=== PATIENT | male | born 1945 | race Caucasian/White ===

== ENCOUNTER 2016-12-27 08:59 | Day surgery (SDC) | payer OTHER, MEDICARE ==
[2016-12-12 13:28] VITALS: BMI 32.0
--- NOTE | 2016-12-12 14:19 | PAT Medication Instructions ---
Service Date Dec 12, 2016. Current Home Medication List Acetaminophen (Tylenol), 650 MG PO Q4H PRN for MILD PAIN Amlodipine (Norvasc), 2.5 MG PO QAM Calcitriol (Rocaltrol Cap), 0.25 MCG PO QAM Citalopram Hydrobromide (Celexa), 20 MG PO QAM Docusate Sodium (Docusate Sodium), 100 MG PO BID PRN for Constipation Ergocalciferol (Vitamin D 08681 Unit), 1 TAB PO [id number] Everolimus (Afinitor), 10 MG PO QAM Fluticasone Prop/Salmeterol (Advair Diskus 250/50 60 Dose), 2 PUFFS INH DAILY PRN for PRN Furosemide (Lasix), 40 MG PO QAM Gabapentin (Neurontin), 400 MG PO BID Glucagon (Glucagon Emergency Kit), 1 MG SC UD PRN for HYPOGLYCEMIA PROTOCOL Insulin Aspart (Novolog), 0 SC ACHS Insulin Glargine (Lantus), 55 SC QAM Ipratropium-Albuterol (Combivent Respimat), 1 PUFFS INH QID PRN for PRN Meclizine Hcl (Meclizine Hcl), 1 TAB PO PRN Oxycodone Ir (Roxicodone Ir), 5 MG PO Q6H PRN for Pain Ranitidine Hcl (Zantac), 150 MG PO QPM Sevelamer Carbonate (Renvela), 1 TAB PO TID Simvastatin (Zocor), 20 MG PO QPM [Octreotide], 1 DOSE INJ [id number] Medication Instructions For Your Scheduled Surgery - Continue as directed: [Octreotide], 1 DOSE INJ [id number] Ergocalciferol (Vitamin D 88831 Unit), 1 TAB PO [id number] Glucagon (Glucagon Emergency Kit), 1 MG SC UD PRN for HYPOGLYCEMIA PROTOCOL - Hold the following medications the morning of surgery: Calcitriol (Rocaltrol Cap), 0.25 MCG PO QAM Insulin Aspart (Novolog), 0 SC ACHS Furosemide (Lasix), 40 MG PO QAM Sevelamer Carbonate (Renvela), 1 TAB PO TID Docusate Sodium (Docusate Sodium), 100 MG PO BID PRN for Constipation - Take the following medications the morning of surgery with a sip of water OTHERWISE NOTHING TO EAT OR DRINK AFTER MIDNIGHT: Everolimus (Afinitor), 10 MG PO QAM Amlodipine (Norvasc), 2.5 MG PO QAM Meclizine Hcl (Meclizine Hcl), 1 TAB PO PRN (if needed) Oxycodone Ir (Roxicodone Ir), 5 MG PO Q6H PRN for Pain (may take if needed up to 4 hours prior to surgery) Acetaminophen (Tylenol), 650 MG PO Q4H PRN for MILD PAIN (may take if needed up to 4 hours prior to surgery) Ipratropium-Albuterol (Combivent Respimat), 1 PUFFS INH QID PRN for PRN Gabapentin (Neurontin), 400 MG PO BID Fluticasone Prop/Salmeterol (Advair Diskus 250/50 60 Dose), 2 PUFFS INH DAILY PRN for PRN Citalopram Hydrobromide (Celexa), 20 MG PO QAM - For Insulin Dependent Diabetic patients: Test blood sugar A.M. of surgery. - If Blood Sugar is GREATER THAN 150, take half of your regular dose of: Insulin Glargine (Lantus) - If Blood Sugar is LESS THAN 150, do not take any: Insulin Glargine ( Lantus) - Take the following medications as scheduled the night before surgery: Ranitidine Hcl (Zantac), 150 MG PO QPM Simvastatin (Zocor), 20 MG PO QPM Meclizine Hcl (Meclizine Hcl), 1 TAB PO PRN (if needed) Insulin Aspart (Novolog), 0 SC ACHS Oxycodone Ir (Roxicodone Ir), 5 MG PO Q6H PRN for Pain Ipratropium-Albuterol (Combivent Respimat), 1 PUFFS INH QID PRN for PRN Acetaminophen (Tylenol), 650 MG PO Q4H PRN for MILD PAIN Gabapentin (Neurontin), 400 MG PO BID Fluticasone Prop/Salmeterol (Advair Diskus 250/50 60 Dose), 2 PUFFS INH DAILY PRN for PRN Sevelamer Carbonate (Renvela), 1 TAB PO TID Docusate Sodium (Docusate Sodium), 100 MG PO BID PRN for Constipation If you have any questions please call us at [phone] or [phone] or [phone]
[2016-12-12 14:42] LABS: BASO ABS # 0.08 K/uL (0-0.2); EOS % 5.4 %; IG% 0.4 %; LYMPH % 24.1 %; LYMPH ABS # 1.84 K/uL (1.2-3.4); MEAN CELL VOLUME 77.9 fL (80-100); MEAN CORPUSCULAR HEMOGLOBIN 25.9 pg (25-34); MEAN CORPUSCULAR HGB CONC 33.2 g/dl (32-36); MEAN PLATELET VOLUME 11.6 fL (7.4-10.4); NEUT % 58.1 %; PLATELET COUNT 209 K/uL (130-400); RED BLOOD COUNT 3.21 M/uL (4.7-6.1); WHITE BLOOD COUNT 7.65 K/uL (4.8-10.8)
[2016-12-12 14:59] LABS: PARTIAL THROMBOPLASTIN RATIO 1.1; PROTHROMBIN TIME (PATIENT) 11.2 SECONDS (9.0-12.0)
[2016-12-12 15:17] LABS: ANISOCYTOSIS PRESENT; COMPLETE YES
[2016-12-12 15:53] LABS: BUN/CREATININE RATIO 16.2 (10-20); CREATININE 3.3 mg/dl (0.60-1.40); POTASSIUM 5.2 mmol/L (3.5-5.1)
[~2016-12-27] VITALS: Ht 182.9 cm; Wt 107.6 kg
--- NOTE | 2016-12-27 06:16 | History and Physical ---
History & Physical Date of Service Dec 27, 2016. History & Physical CC: End stage renal disease HPI: Mr. Murillo states he is not yet on hemodialysis, but has been advised that his kidney function continues to decline and that he would likely benefit from having an AV fistula created in the hopes that this will prevent him having to have a PermCath inserted when he does need dialysis. He states he does not have a start date for any dialysis at this time. He denies any complaints including headaches, fevers, chills, dizziness, chest pain, shortness of breath, abdominal pain, nausea, vomiting, diarrhea, constipation, dysuria, hematuria, rest pain, claudication, nonhealing wounds or ulcers or other complaints. HIS ALLERGIES INCLUDES SULFA DRUGS. Home Medications are reconciled on the chart and include the following: Acetaminophen, Advair Diskus, Afinitor oral tablet, amlodipine, Antivert, calcitriol, Celexa, Colace, Combivent Respimat, gabapentin, glucagon, Humalog quick pen, Lantus SoloSTAR octreotide, sevelamer, simvastatin, vitamin D3 and Zantac. Past Medical History: Positive for cervical spinal stenosis, chronic kidney disease stage IV, depression, type 2 diabetes mellitus, hypertension, hyperlipidemia, hypoparathyroidism, lumbar spinal stenosis, neoplasm of liver, peripheral neuropathy and COPD. Past Surgical History: Positive for cystoscopy with stent, cervical laminectomy , lumbar laminectomy, right knee arthroscopic surgery, bilateral carpal tunnel release, bony spur excised from the neck, and lithotripsy. Family History: Positive for bronchitis, cancer, COPD, depression, diabetes mellitus and thyroid disease in unknown family members. Social History: The patient used to smoke cigarettes and quit at age [age] years old. He denies alcohol or drug use. Review of Systems: Negative for fatigue, fevers, sweats, weight loss, exercise intolerance, abnormal moles or rashes, vision changes or photophobia, ear pain, sinus problems or sore throat, cough, shortness of breath, hemoptysis or wheezing any worse than usual, abdominal pain, nausea, vomiting, hematuria, muscle weakness, headaches, dizziness, numbness or seizures. Physical Examination: Vital signs today are as follows: Blood pressure 138/66 in the right arm, 138/68 in the left, heart rate of 82, oxygen 97% on room air. The patient is 183 cm tall and weighs 105.5 kilograms. Constitutional: In general, patient is a mildly chronically ill-appearing middle-aged male in no acute distress. He ambulates without assistance and is active, alert and oriented x4 with normal recent and remote memory. Head is normocephalic, atraumatic. Eyes are EOMI. ENMT exam demonstrates no hearing loss, rhinorrhea or pharyngeal erythema. Neck is supple, nontender with midline trachea without masses or crepitus. He does have a posterior neck surgical scar and has minimal range of motion. His lungs demonstrate no dyspnea. They are decreased throughout, but clear bilaterally. Cardiovascular exam demonstrates a nondisplaced apical impulse with a regular rate and rhythm without murmurs. Peripheral pulses are full and equal in all extremities unless otherwise noted, specifically they are normal in his carotid, brachial, radial, and femoral pulses. Lower extremities distal pulses are +1. He has brisk capillary refill and no signs of distal ischemia. The patient demonstrates no bruits in his carotid, abdominal or femoral area. Abdomen is soft, nontender with normoactive bowel sounds in all 4 quadrants without guarding or rebound. There is no flank or CVA tenderness. Musculoskeletal exam demonstrates normal tone and strength for age. Bilateral upper extremities demonstrate no cyanosis, edema, clubbing, varicosities or ulcers. Bilateral lower extremities demonstrate no cyanosis, edema, clubbing, varicosities or ulcers. Neurologically, patient has grossly intact cranial nerves and grossly intact sensation. Imp: End stage renal disease Plan: Patient is admitted ofr a left antecubital cephalic vein fistula creation. I have discussed the risks options and benefits of the procedure with the patient. The patient understands the risks options and benefits and agrees to the procedure.
[~2016-12-27 08:59] MED LIST: ACET-1311 PO; ADVIN25/60 INH; AMLO2.5T PO; CALC0.2510 PO; CEFAZOLIN 2000 MG/60 ML D5W IV SCH; CITA20TA9 PO; CLC100 PO; ERGO1CAP41 PO; EVER10TA PO; FRS/40 PO; GABA1CAP5 PO; GLGKIT SC; INSDGI SC; IPRA1AER2 INH; MECL1TAB42 PO; NVLGI SC; OCTREOTIDE INJ; OXYC1TAB3 PO; SEVE800T7 PO; SIMV20TA2 PO; SODIUM CHLORIDE 0.9% 1000ML 1,000 ML IV SCH; ZNT/150 PO
[2016-12-27 09:14] VITALS: TEMP 36.9; Ht 182.9 cm; Wt 107.6 kg
[2016-12-27 09:26] VITALS: BP 177/79; O2SAT 96
[2016-12-27 10:31] LABS: HEMATOCRIT 24.5 % (42-52); MEAN CELL VOLUME 79.3 fL (80-100); MEAN CORPUSCULAR HEMOGLOBIN 25.9 pg (25-34); MEAN PLATELET VOLUME 12.1 fL (7.4-10.4); PLATELET COUNT 171 K/uL (130-400); RED BLOOD COUNT 3.09 M/uL (4.7-6.1); WHITE BLOOD COUNT 5.64 K/uL (4.8-10.8)
[2016-12-27] MEDS ORDERED: LIDOCAINE HCL 2% 2 ML VIAL (20MG/ML) ONE (10:51)
[2016-12-27] MEDS ORDERED: PROPOFOL IV EMULSION 10 MG/ML 20 ML VIAL IV ONE ×3 (10:51→13:08)
[2016-12-27] MEDS ORDERED: FENTANYL CITRATE INJ 50 MCG/1 ML 2 ML VIAL ONE (10:51)
[2016-12-27] MEDS ORDERED: MIDAZOLAM HCL 1 MG/ML 2ML VIAL ONE (10:51)
[2016-12-27 10:53] LABS: CALCIUM 8.6 mg/dl (8.5-10.1); CREATININE 3.2 mg/dl (0.60-1.40); POTASSIUM 4.4 mmol/L (3.5-5.1)
[2016-12-27 10:59] LABS: MEAN CORPUSCULAR HGB CONC 32.7 g/dl (32-36)
--- NOTE | 2016-12-27 11:11 | History & Physical Bridge Note ---
H&P Re-Evaluation Bridge Note: I have examined the patient, reviewed the History & Physical and in the interval since the performance of the History & Physical I have noted the following changes of clinical significance: No changes noted
[2016-12-27] MEDS ORDERED: FENTANYL CITRATE INJ 50 MCG/1 ML 2 ML VIAL IV PRN (11:15)
[2016-12-27] MEDS ORDERED: ONDANSETRON INJ 2 MG/ML 2 ML VIAL IV PRN (11:15)
[2016-12-27] MEDS ORDERED: EpHEDrine SULFATE INJ 50 MG/ML AMP IV PRN (11:15)
[2016-12-27] MEDS ORDERED: ATROPINE SULFATE 0.1 MG/ML 5ML SYR IV PRN (11:15)
[2016-12-27] MEDS ORDERED: GELATIN SPONGE 12-7MM ONE (11:49)
[2016-12-27] MEDS ORDERED: LIDOCAINE HCL 1% 20 ML VIAL ONE (11:49)
[2016-12-27] MEDS ORDERED: BUPIVACAINE/EPINEPHRINE 0.5% MPF 1:200,000 30 ML VIAL ONE (11:49)
[2016-12-27] MEDS ORDERED: THROMBIN FOR SOLN 20000 UNIT KIT ONE (11:49)
[2016-12-27] MEDS ORDERED: HEPARIN SOD (PORCINE) 1000 UNIT/ML 10 ML VIAL ONE (11:50)
--- NOTE | 2016-12-27 13:24 | [facility] Post Operative Brief Note ---
Immediate Operative Summary Operative Date Dec 27, 2016. Pre-Operative Diagnosis End stage renal disease Post-Operative Diagnosis End stage renal disease Procedure(s) Performed Left Upper Extremity Antecubital Cephalic Vein Arteriovenous Fistula Creation Surgeon Dr. Fagan [employer] Assistant Surgeon(s) Dr. Marques Estimated Blood Loss 10 ml Findings good thrill Specimens None per surgeon Anesthesia MAC Complication(s) None Disposition Recovery Room / PACU
--- NOTE | 2016-12-27 13:29 | Discharge Instructions ---
Discharge Instructions Date of Service Dec 27, 2016. Visit Reason for Visit: End Stage Renal Disease Discharge Discharge Diagnosis / Problem: End stage renal disease Discharge Goals Goal(s): Therapeutic intervention Activity Recommendations Activity Limitations: per Instructions/Follow-up section Anesthesia . Post Anesthesia Instructions: If you have had General Anesthesia or IV Sedation: * Do not drive today. * Resume driving when surgeon permits. * Do not make important decisions or sign legal documents today. * Call surgeon for: 1. Temperature elevations greater than 101 degrees F. 2. Uncontrollable pain. 3. Excessive bleeding. 4. Persistent nausea and vomiting. 5. Medication intolerance (nausea, vomiting or rash). * For nausea and vomiting use only clear liquids such as: tea, soda, bouillon until nausea subsides, then gradually increase diet as tolerated. * If you have any concerns or questions, call your surgeon's office. If physician is unavailable and it is an emergency, call 911 or go to the nearest emergency room. . Instructions / Follow-Up Instructions / Follow-Up Call [phone] to schedule a follow up appointment if one not already scheduled. ACTIVITY RECOMMENDATIONS: See Above SPECIAL CARE INSTRUCTIONS: Call your doctor if: * Temperature above 101 degrees * Pain not relieved by pain medicine ordered * There is increased drainage or redness from any incision * You have any unanswered questions or concerns. Diet Recommendations Recommended Home Diet: resume previous diet Procedures Procedures Performed: Left Upper Extremity Antecubital Cephalic Vein Arteriovenous Fistula Creation Pending Studies Studies pending at discharge: no Medical Emergencies . Who to Call and When: Medical Emergencies: If at any time you feel your situation is an emergency, please call 911 immediately. . Non-Emergent Contact Non-Emergency issues call your: Surgeon . . "Provider Documentation" section prepared by Adelso Fagan. .
--- NOTE | 2016-12-27 13:34 | Anesthesiology Progress Note ---
Anesthesia Post Op Note Date & Time Dec 27, 2016 at 13:34 Vital Signs Pain Intensity: 3 Vital Signs Past 12 Hours Date Time Temp Pulse Resp B/P (MAP) Pulse Ox O2 Delivery O2 Flow Rate FiO2 12/27/16 09:26 18 177/79 (111) 96 Room Air 12/27/16 09:14 36.9 Notes Mental Status: alert / awake / arousable, participated in evaluation Pt Amnestic to Procedure: Yes Nausea / Vomiting: adequately controlled Pain: adequately controlled Airway Patency, RR, SpO2: stable & adequate BP & HR: stable & adequate Hydration State: stable & adequate Anesthetic Complications: no major complications apparent
[2016-12-27 13:50] VITALS: BP 146/70; PULSE 83; TEMP 36.6; O2SAT 95
[2016-12-27] MEDS ORDERED: OXYCODONE HCL IR 5 MG TAB (IMMEDIATE RELEASE) ONE (14:24)
[2016-12-27] MEDS ORDERED: OXYCODONE HCL IR 5 MG TAB (IMMEDIATE RELEASE) PO STA (14:24)
[2016-12-27 14:25] VITALS: BP 144/67; PULSE 80; O2SAT 95
[2016-12-27] MEDS ORDERED: NURSING VERBAL MED ORDER ONE (14:30)
[2016-12-27 14:50] VITALS: BP 166/75; PULSE 86; TEMP 37.5; O2SAT 96
--- NOTE | 2016-12-27 15:07 | OPERATIVE REPORT ---
DATE OF OPERATION: 12/27/2016 PREOPERATIVE DIAGNOSIS: End-stage renal disease. POSTOPERATIVE DIAGNOSIS: Same. PROCEDURE: Left antecubital brachiocephalic fistula. SURGEON: Dr. Adelso Fagan. DIETETIC AIDE: Dr. Leah Marques. DESCRIPTION OF PROCEDURE: The patient was brought into the operative suite. He was prepped and draped in the usual fashion. Timeout occurred. An incision was made about 2 cm below the antecubital fossa transversely. The cephalic vein was identified. This was dissected out. The brachial vein was then identified and dissected out. The median cubital vein was ligated as well as the posterior branch of the cephalic vein. The vein was then ligated and transected distally. The vein was distended with heparinzed saline and to be of adequate size. Attention was then turned to the artery. Angled Debakey clamps were applied proximally and distally. Arteriotomy was made and this was extended with Hare scissors to be approximately 5 mm. The vein was then trimmed to size and sewn in end-to-side fashion. Upon completion of the first anastomosis, there was a quarter turn in in the vein causing a diminished thrill. The anastomosis was taken down and resewn in end to side fashion position and adequate thrill. Hemostasis was obtained and the incision was closed using 3-0 and 4-[address] Adelso Fagan was present and scrubbed for the entirety of this case. I, Dr. Fagan was present and scrubbed for the entire procedure. I attest to the content of the Intraoperative Record and any orders documented therein. Any exceptions are noted below. [facility]
[2017-01-08] MEDS ORDERED: ASPEC81 PO (17:44)
[2017-01-08] MEDS ORDERED: DMD20 PO (17:44)
== END 2016-12-27 15:05 | disposition home or self-care (01) ==
LOC: C.ACU 08:59
PROVIDERS: ATTEND Surgery Vascular Surgery
DX: N18.6 End stage renal disease (principal); M48.02 Spinal stenosis, cervical region; F32.9 Major depressive disorder, single episode, unspecified; E11.22 Type 2 diabetes mellitus with diabetic chronic kidney disease; I12.9 Hypertensive chronic kidney disease with stage 1 through stage 4 chronic kidney disease, or unspecified chronic kidney disease; E78.5 Hyperlipidemia, unspecified; E20.9 Hypoparathyroidism, unspecified; M48.06 Spinal stenosis, lumbar region; E11.51 Type 2 diabetes mellitus with diabetic peripheral angiopathy without gangrene; J44.9 Chronic obstructive pulmonary disease, unspecified; Z87.891 Personal history of nicotine dependence

== ENCOUNTER 2017-01-05 17:52 | Inpatient (IN) | payer OTHER, MEDICARE ==
[~2017-01-05] VITALS: Ht 182.9 cm; Wt 105.8 kg
[~2017-01-05 17:52] MED LIST changes: -CEFAZOLIN 2000 MG/60 ML D5W IV SCH; -MECL1TAB42 PO; -SODIUM CHLORIDE 0.9% 1000ML 1,000 ML IV SCH
[2017-01-05] MEDS ORDERED: ALBU18002 INH (18:50)
[2017-01-05] MEDS ORDERED: CITA40TA4 PO (18:53)
[2017-01-05] MEDS ORDERED: INSDGIPEN SC (18:58)
[2017-01-05] MEDS ORDERED: MECL-91 PO (19:04)
[2017-01-05] MEDS ORDERED: INSU100I2 SC (19:07)
[2017-01-05 19:28] LABS: BASO % 1.2 %; BASO ABS # 0.07 K/uL (0-0.2); EOS % 3.7 %; HEMATOCRIT 24.5 % (42-52); IG% 0.3 %; LYMPH % 27.1 %; LYMPH ABS # 1.63 K/uL (1.2-3.4); MEAN CELL VOLUME 79.5 fL (80-100); MEAN CORPUSCULAR HGB CONC 32.7 g/dl (32-36); MEAN PLATELET VOLUME 11.6 fL (7.4-10.4); MONO % 9.1 %; NEUT % 58.6 %; PLATELET COUNT 168 K/uL (130-400); RED BLOOD COUNT 3.08 M/uL (4.7-6.1); WHITE BLOOD COUNT 6.02 K/uL (4.8-10.8)
[2017-01-05 19:38] LABS: PARTIAL THROMBOPLASTIN RATIO 1.1
[2017-01-05 19:51] LABS: COMPLETE YES; TEAR DROP CELLS 1+
--- NOTE | 2017-01-05 19:52 | DIAGNOSTIC IMAGING REPORT ---
CHEST ONE VIEW PORTABLE CLINICAL HISTORY: 71 years-old Male presenting with EVALUATE RESPIRATORY DISTRESS.DYSPNEA. TECHNIQUE: Portable upright AP view of the chest was obtained. COMPARISON: 05/01/2015. FINDINGS: Cardiac silhouette remains enlarged. Left basilar opacity decreased from prior. Small left pleural effusion. Right lung and pleural space clear. Partial visualization of cervical fusion hardware. Degenerative changes of the spine. Upper abdomen normal. IMPRESSION: 1. Persistent although decreased left basilar opacities with a small left pleural effusion. This may represent atelectasis. 2. Cardiomegaly. No meggan pulmonary edema. Electronically signed by: Cody Connor M.D. 01/05/2017 7:51 PM Dictated Date/Time: 01/05/2017 7:50 PM
[2017-01-05 19:56] LABS: ALB/GLOB RATIO 0.8 (0.9-2); ALKALINE PHOSPHATASE 116 U/L (45-117); ALT/SGPT 20 U/L (12-78); AST/SGOT 29 U/L (15-37); BLOOD UREA NITROGEN 52 mg/dl (7-18); BUN/CREATININE RATIO 15.3 (10-20); CALCIUM 8.2 mg/dl (8.5-10.1); CARBON DIOXIDE 23 mmol/L (21-32); CHLORIDE 109 mmol/L (98-107); CKMB/CK RATIO 1.1 (0-3.0); GLUCOSE 60 mg/dl (70-99); POTASSIUM 4.4 mmol/L (3.5-5.1); SODIUM 141 mmol/L (136-145)
[2017-01-05 20:15] LABS: URINE APPEARANCE CLOUDY (CLEAR); URINE COLOR DK YELLOW; URINE NITRITE NEG (NEG); UROBILINOGEN NEG (NEG)
[2017-01-05 20:16] LABS: MANUAL MICROSCOPIC REQUIRED? NO; REVIEW REQ? YES
[2017-01-05 20:18] LABS: URINE BILIRUBIN NEG (NEG)
[2017-01-05 20:27] LABS: URINE PATH CASTS 5-10 GRANULAR CASTS /lpf (0)
--- NOTE | 2017-01-05 20:56 | DIAGNOSTIC IMAGING REPORT ---
(CHEST) THORAX WITHOUT CLINICAL HISTORY: 71 years-old Male presenting with SOB, CRI. outpt xrayr questioned pneumo. TECHNIQUE: Multidetector CT imaging of the chest was performed without the use of intravenous contrast. IV contrast: None. A dose lowering technique was used consistent with the principles of ALARA (as low as reasonably achievable). COMPARISON: 04/05/2012. CT DOSE (mGy.cm): The estimated cumulative dose is 589.34 mGy.cm. FINDINGS: Vascular Radiologist topogram: Unremarkable. On soft tissue windows, bilateral gynecomastia. Few small nodules noted in the thyroid. No axillary, supraclavicular, or mediastinal lymphadenopathy. Evaluation of the radha limited without intravenous contrast. Atherosclerosis of the aorta. Mild multichamber enlargement of the heart. Intraventricular blood flow is less dense than adjacent myocardium suggesting anemia. Mitral annular and coronary artery calcification. Trace pericardial effusion. Small bilateral pleural effusions. Cholelithiasis. Ill-defined hypodense lesion in the right hepatic lobe (series 2 image 60), new from prior exam in 2012. Calcification along the atrophic lateral segment of the left hepatic lobe unchanged. Slight interval increased size of the solid round 3.5 cm lesion in the pancreatic tail, previously 2.5 cm. On lung windows, dependent consolidation and volume loss at the lung bases, likely passive atelectasis. Subpleural regular opacity with adjacent calcification at the site of prior consolidation, likely scarring. Focal nodularity in the superior segment of the right lower lobe (for example series 4 image 177). Minimal groundglass centrilobular opacities in the lingula suggested primarily in a subpleural distribution, likely postinfectious/postinflammatory as these changes were apparent to some degree on the prior exam. Airways patent. On bone windows, degenerative changes of the spine. Partially visualized posterior cervical fusion hardware. IMPRESSION: 1. Small bilateral pleural effusions with dependent atelectasis. 2. Minimal nodularity in the superior segment of the right lower lobe. An atypical infectious etiology cannot be excluded. 3. Chronic postinfectious/postinflammatory changes in the lingula. 4. Ill-defined hypodense lesion in the right hepatic lobe is suspicious and new from prior exam in 2012. This raises concern for a metastatic lesion. Further evaluation with dedicated contrast enhanced liver CT or MR recommended and correlation for a history of primary malignancy. 5. Interval increased size of the solid pancreatic neoplasm. This is incompletely characterized without intravenous contrast. Differential considerations include solid pseudopapillary epithelial neoplasm, serous cystadenoma, focal side branch intraductal papillary mucinous neoplasm, or acinar carcinoma. Further evaluation could be considered as clinically warranted. 6. 7. 8. Electronically signed by: Cody Connor M.D. 9. 01/05/2017 8:55 PM 10. 11. Dictated Date/Time: 01/05/2017 8:43 PM
[2017-01-05] MEDS ORDERED: FUROSEMIDE 40 MG/4 ML VIAL IV STA (21:35)
--- NOTE | 2017-01-05 22:39 | EMERGENCY ROOM VISIT NOTE ---
History Report prepared by Venita: Fabienne Shannon Under the Supervision of: Dr. Josué Tyler M.D. First contact with patient: 18:34 Chief Complaint: SHORTNESS OF BREATH Stated Complaint: SOB Nursing Triage Summary: patient referred to ER from PCP. patient went to PCP c/o SOB and cough x2 days. patient had a EKG, chest xray and a breathing treatment and sent home with inhaler. PCP called patient for "partial collapse to a lung" and was told to come to ER History of Present Illness The patient is a 71 year old male who presents to the Emergency Room with complaints of worsening shortness of breath for the past 2 days. Exertion worsens his symptoms. He admits to a history of asthma but states he has never experienced breathing issues this severe before. He saw his PCP's office at [facility] earlier today for his symptoms. He had an EKG, chest X-ray and breathing treatment and was sent home with an inhaler. His doctor then called him earlier this evening and left a message, telling him his X-ray showed a partial collapsed lung and referred him here to the ED. The patient does not take daily blood thinners. He admits to a history of liver and pancreatic cancer for the past 5 years. He currently takes maintenance chemotherapy. The patient denies LOC, headache, fevers, chills, diaphoresis, visual changes, neck pain, chest pain, nausea, vomiting, abdominal pain, back pain, melena, hematochezia, urinary symptoms, numbness, weakness, lymphadenopathy, rash, or other complaints. 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 A total of ten systems were reviewed and were otherwise negative. Past Medical & Surgical Medical Problems: (1) Anemia (2) Asthma (3) Diabetes (4) Encephalopathy (5) Hypertension (6) Left knee pain (7) Liver cancer (8) Pancreas cancer (9) Right rib fracture (10) Stenosis of cervical spine (11) Traumatic joint effusion Surgical Problems: (1) H/O cervical spine surgery Family History Cancer Diabetes mellitus Heart disease Hypertension Lung disease Social History Smoking Status: Former Smoker Alcohol Use: none Drug Use: none Marital Status: Housing Status: lives with significant other Occupation Status: retired Current/Historical Medications Scheduled Amlodipine (Norvasc), 2.5 MG PO QAM Calcitriol (Rocaltrol Cap), 0.25 MCG PO QAM Citalopram (Citalopram Hydrobromide), 40 MG PO DAILY Ergocalciferol (Vitamin D 37952 Unit), 1 TAB PO [id number] Everolimus (Afinitor), 10 MG PO QAM Furosemide (Lasix), 40 MG PO BID Gabapentin (Neurontin), 400 MG PO BID Insulin Glargine (Lantus Solostar), 55 UNITS SC QAM Insulin Lispro (Human) (Humalog Kwikpen), 1 DOSE SC UD Ranitidine Hcl (Zantac), 150 MG PO QPM Sevelamer Carbonate (Renvela), 800 MG PO TIDM Simvastatin (Zocor), 20 MG PO QPM [Octreotide], 1 DOSE INJ [id number] Scheduled PRN Acetaminophen (Tylenol), 650 MG PO Q4H PRN for MILD PAIN Albuterol Sulfate (Proair Respiclick), 2 PUFFS INH Q4 PRN for Wheezing Fluticasone Prop/Salmeterol (Advair Diskus 250/50 60 Dose), 1 PUFF INH DAILY PRN for PRN Glucagon (Glucagon Emergency Kit), 1 MG SC UD PRN for HYPOGLYCEMIA PROTOCOL Ipratropium-Albuterol (Combivent Respimat), 1 PUFFS INH QID PRN for PRN Meclizine HCl (Meclizine 25), 25 MG PO TID PRN for Dizziness or Vertigo Allergies Coded Allergies: Sulfa Antibiotics (Verified Allergy, Mild, RASH, 01/05/17) NSAIDs (Unverified Allergy, Unknown, "NO NSAIDS"due to kidney disease, 01/05/17) Physical Exam Vital Signs Date Time Temp Pulse Resp B/P (MAP) Pulse Ox O2 Delivery O2 Flow Rate FiO2 01/05/17 21:31 93 18 160/83 98 Room Air 01/05/17 20:48 88 20 156/77 98 Nasal Cannula 2.0 01/05/17 19:43 85 18 144/72 100 Nasal Cannula 2.0 01/05/17 19:16 88 01/05/17 19:09 99 2.0 01/05/17 19:09 99 Nasal Cannula 2.0 01/05/17 18:00 95 Room Air 01/05/17 18:00 36.8 87 24 130/63 96 Room Air Physical Exam GENERAL: Awake, alert, tired-appearing, in no distress HENT: Normocephalic, atraumatic. Oropharynx unremarkable. EYES: Normal conjunctiva. Sclera non-icteric. NECK: Supple. No nuchal rigidity. FROM. No JVD. RESPIRATORY: Clear to auscultation. CARDIAC: Regular rate, normal rhythm. Extremities warm and well perfused. Pulses equal. ABDOMEN: Soft, non-distended. No tenderness to palpation. No rebound or guarding. No masses. RECTAL: Deferred. MUSCULOSKELETAL: Chest examination reveals no tenderness. The back is symmetrical on inspection without obvious abnormality. There is no CVA tenderness to palpation. No joint edema. LOWER EXTREMITIES: Calves are equal size bilaterally and non-tender. 2+ lower extremity edema. No discoloration. NEURO: Normal sensorium. No sensory or motor deficits noted. SKIN: No rash or jaundice noted. Medical Decision & Procedures ER Provider Diagnostic Interpretation: Radiology results as stated below per my review and radiologist interpretation: (CHEST) THORAX WITHOUT CLINICAL HISTORY: 71 years-old Male presenting with SOB, CRI. outpt xrayr questioned pneumo. TECHNIQUE: Multidetector CT imaging of the chest was performed without the use of intravenous contrast. IV contrast: None. A dose lowering technique was used consistent with the principles of ALARA (as low as reasonably achievable). COMPARISON: 04/05/2012. CT DOSE (mGy.cm): The estimated cumulative dose is 589.34 mGy.cm. FINDINGS: Dye Line Operator topogram: Unremarkable. On soft tissue windows, bilateral gynecomastia. Few small nodules noted in the thyroid. No axillary, supraclavicular, or mediastinal lymphadenopathy. Evaluation of the radha limited without intravenous contrast. Atherosclerosis of the aorta. Mild multichamber enlargement of the heart. Intraventricular blood flow is less dense than adjacent myocardium suggesting anemia. Mitral annular and coronary artery calcification. Trace pericardial effusion. Small bilateral pleural effusions. Cholelithiasis. Ill-defined hypodense lesion in the right hepatic lobe (series 2 image 60), new from prior exam in 2012. Calcification along the atrophic lateral segment of the left hepatic lobe unchanged. Slight interval increased size of the solid round 3.5 cm lesion in the pancreatic tail, previously 2.5 cm. On lung windows, dependent consolidation and volume loss at the lung bases, likely passive atelectasis. Subpleural regular opacity with adjacent calcification at the site of prior consolidation, likely scarring. Focal nodularity in the superior segment of the right lower lobe (for example series 4 image 177). Minimal groundglass centrilobular opacities in the lingula suggested primarily in a subpleural distribution, likely postinfectious/postinflammatory as these changes were apparent to some degree on the prior exam. Airways patent. On bone windows, degenerative changes of the spine. Partially visualized posterior cervical fusion hardware. IMPRESSION: 1. Small bilateral pleural effusions with dependent atelectasis. 2. Minimal nodularity in the superior segment of the right lower lobe. An atypical infectious etiology cannot be excluded. 3. Chronic postinfectious/postinflammatory changes in the lingula. 4. Ill-defined hypodense lesion in the right hepatic lobe is suspicious and new from prior exam in 2012. This raises concern for a metastatic lesion. Further evaluation with dedicated contrast enhanced liver CT or MR recommended and correlation for a history of primary malignancy. 5. Interval increased size of the solid pancreatic neoplasm. This is incompletely characterized without intravenous contrast. Differential considerations include solid pseudopapillary epithelial neoplasm, serous cystadenoma, focal side branch intraductal papillary mucinous neoplasm, or acinar carcinoma. Further evaluation could be considered as clinically warranted. Electronically signed by: Cody Connor M.D. 01/05/2017 8:55 PM CHEST ONE VIEW PORTABLE CLINICAL HISTORY: 71 years-old Male presenting with EVALUATE RESPIRATORY DISTRESS.DYSPNEA. TECHNIQUE: Portable upright AP view of the chest was obtained. COMPARISON: 05/01/2015. FINDINGS: Cardiac silhouette remains enlarged. Left basilar opacity decreased from prior. Small left pleural effusion. Right lung and pleural space clear. Partial visualization of cervical fusion hardware. Degenerative changes of the spine. Upper abdomen normal. IMPRESSION: 1. Persistent although decreased left basilar opacities with a small left pleural effusion. This may represent atelectasis. 2. Cardiomegaly. No meggan pulmonary edema. Electronically signed by: Cody Connor M.D. 01/05/2017 7:51 PM Laboratory Results 01/05/17 19:00 Red Blood Count 3.08, Mean Corpuscular Volume 79.5, Mean Corpuscular Hemoglobin 26.0, Mean Corpuscular Hemoglobin Concent 32.7, Mean Platelet Volume 11.6, Neutrophils (%) (Auto) 58.6, Lymphocytes (%) (Auto) 27.1, Monocytes (%) (Auto) 9.1, Eosinophils (%) (Auto) 3.7, Basophils (%) (Auto) 1.2, Neutrophils # (Auto) 3.53, Lymphocytes # (Auto) 1.63, Monocytes # (Auto) 0.55, Eosinophils # (Auto) 0.22, Basophils # (Auto) 0.07 01/05/17 19:00 Test 01/05/17 19:00 01/05/17 19:51 01/05/17 21:16 White Blood Count 6.02 K/uL (4.8-10.8) Red Blood Count 3.08 M/uL (4.7-6.1) Hemoglobin 8.0 g/dL (14.0-18.0) Hematocrit 24.5 % (42-52) Mean Corpuscular Volume 79.5 fL (80-100) Mean Corpuscular Hemoglobin 26.0 pg (25-34) Mean Corpuscular Hemoglobin Concent 32.7 g/dl (32-36) Platelet Count 168 K/uL (130-400) Mean Platelet Volume 11.6 fL (7.4-10.4) Neutrophils (%) (Auto) 58.6 % Lymphocytes (%) (Auto) 27.1 % Monocytes (%) (Auto) 9.1 % Eosinophils (%) (Auto) 3.7 % Basophils (%) (Auto) 1.2 % Neutrophils # (Auto) 3.53 K/uL (1.4-6.5) Lymphocytes # (Auto) 1.63 K/uL (1.2-3.4) Monocytes # (Auto) 0.55 K/uL (0.11-0.59) Eosinophils # (Auto) 0.22 K/uL (0-0.5) Basophils # (Auto) 0.07 K/uL (0-0.2) RDW Standard Deviation 40.9 fL (36.4-46.3) RDW Coefficient of Variation 14.2 % (11.5-14.5) Immature Granulocyte % (Auto) 0.3 % Immature Granulocyte # (Auto) 0.02 K/uL (0.00-0.02) Tear Drop Cells 1+ Prothrombin Time 11.0 SECONDS (9.0-12.0) Prothromb Time International Ratio 1.0 (0.9-1.1) Activated Partial Thromboplast Time 28.5 SECONDS (21.0-31.0) Partial Thromboplastin Ratio 1.1 Anion Gap 10.0 mmol/L (3-11) Est Creatinine Clear Calc Drug Dose 26.0 ml/min Estimated GFR () 20.2 Estimated GFR (Non- 17.4 BUN/Creatinine Ratio 15.3 (10-20) Calcium Level 8.2 mg/dl (8.5-10.1) Total Bilirubin < 0.1 mg/dl (0.2-1) Aspartate Amino Transf (AST/SGOT) 29 U/L (15-37) Alanine Aminotransferase (ALT/SGPT) 20 U/L (12-78) Alkaline Phosphatase 116 U/L (45-117) Total Creatine Kinase 110 U/L (39-308) Creatine Kinase MB 1.2 ng/ml (0.5-3.6) Creatine Kinase MB Ratio 1.1 (0-3.0) Troponin I 0.023 ng/ml (0-0.045) Pro-B-Type Natriuretic Peptide 5366 pg/ml (0-900) Total Protein 7.1 gm/dl (6.4-8.2) Albumin 3.1 gm/dl (3.4-5.0) Globulin 4.0 gm/dl (2.5-4.0) Albumin/Globulin Ratio 0.8 (0.9-2) Chemistry Specimen Hemolysis Urine Color DK YELLOW Urine Appearance CLOUDY (CLEAR) Urine pH 5.0 (4.5-7.5) Urine Specific [place] 1.040 (1.000-1.030) Urine Protein 1+ (NEG) Urine Glucose (UA) NEG (NEG) Urine Ketones NEG (NEG) Urine Occult Blood NEG (NEG) Urine Nitrite NEG (NEG) Urine Bilirubin NEG (NEG) Urine Urobilinogen NEG (NEG) Urine Leukocyte Esterase NEG (NEG) Urine WBC (Auto) 1-5 /hpf (0-5) Urine RBC (Auto) 0-4 /hpf (0-4) Urine Hyaline Casts (Auto) 10-30 /lpf (0-5) Urine Epithelial Cells (Auto) 10-20 /lpf (0-5) Urine Bacteria (Auto) NEG (NEG) Urine Pathogenic Casts 5-10 GRANULAR CASTS /lpf (0) Urine Yeast (Auto) (NONE PRSENT) Bedside Glucose 99 mg/dl (70-99) Laboratory results reviewed by me Medications Administered Medications (Trade) Dose Ordered Sig/Adán Route Start Time Stop Time Status Last Admin Dose Admin Furosemide (Lasix Inj) 40 mg NOW STAT IV 01/05/17 21:35 01/05/17 21:37 DC 01/05/17 21:35 40 MG ECG Indication: SOB/dyspnea Rate (beats per minute): 87 Rhythm: normal sinus Findings: nonspecific-ST abn ED Course 1837: The patient was evaluated in room C4. A complete history and physical exam was performed. 1948: I reevaluated the patient. He is resting comfortably. 2134: Lasix 40 mg IV. 2125: I reevaluated the patient. He is feeling well and resting. I discussed his results and my recommendation he remain in the hospital for further evaluation and management and he verbalized complete understanding and agreement. 2145: I discussed the patients case [facility] The patient will be further evaluated. Medical Decision Triage Nursing notes reviewed. The patient's presentation and history were concerning for respiratory issues. Etiologies such as pneumonia, COPD, reactive airway disease, CHF, cardiac ischemia, pulmonary embolism, pneumothorax, musculoskeletal, infections, gastrointestinal, as well as others were entertained. The patient was evaluated. A chest x-ray performed. No obvious pneumothorax was seen. ECG did not show any ischemia. His CBC revealed a moderate anemia. The patient notes he has had this issue. He has been receiving IV iron. Blood work also revealed renal insufficiency with a creatinine of over 3. His BNP was markedly elevated over 5000. The patient does have lower extremity edema. He has been started on Lasix and his Lasix was actually increased and he notes no increase in urinary output. The patient's imaging is as above. A type and screen was ordered. The patient will need further evaluation and management in the hospital. It appears he has new-onset CHF as well as significant anemia and renal insufficiency. [facility] Lasix was administered. Input and output measurements were ordered. The patient was informed. He was comfortable with the plan. Medication Reconcilliation Current Medication List: was personally reviewed by me Blood Pressure Screening Patient's blood pressure: Elevated blood pressure The patients elevated blood pressure will be further evaluated by the hospital medicine team. Consults Time Called: 2139 Consulting Physician: Wilmer Kebede Hospitalist Returned Call: 2145 I discussed the patients case with [facility]. The patient will be further evaluated. Impression Primary Impression: CHF (congestive heart failure) Additional Impressions: Renal insufficiency SOB (shortness of breath) Anemia Scribe Attestation The scribe's documentation has been prepared under my direction and personally reviewed by me in its entirety. I confirm that the note above accurately reflects all work, treatment, procedures, and medical decision making performed by me. Departure Information Dispostion Being Evaluated By Hospitalist Referrals Deedee Perkins PA-C (PCP) Patient Instructions [facility] Problem Qualifiers
[2017-01-06] VITALS (7 sets, daily range): BP systolic 118–162; BP diastolic 60–81; PULSE 79–98; TEMP 36.7–37.1; O2SAT 94–99; Ht 182.9 cm; Wt 105.8 kg
[2017-01-06] MEDS ORDERED: MoRPHine SULFATE 2 MG/ML CARP IV PRN (01:15)
[2017-01-06] MEDS ORDERED: ACETAMINOPHEN 325 MG TAB PO PRN (01:15)
[2017-01-06] MEDS ORDERED: POLYETHYLENE (MIRALAX) 17 GM PACK PO PRN (01:15)
[2017-01-06] MEDS ORDERED: ONDANSETRON INJ 2 MG/ML 2 ML VIAL IV PRN (01:15)
[2017-01-06] MEDS ORDERED: NITROGLYCERIN 0.4 MG SL PER TAB CHARGE SL PRN (01:15)
[2017-01-06] MEDS ORDERED: ALBUT/IPRATROP 3MG/0.5MG NEB 3 ML VIAL INH PRN (01:30)
[2017-01-06] MEDS ORDERED: GLUCOSE 40% GEL 15 GM TUBE PO PRN (01:30)
[2017-01-06] MEDS ORDERED: GLUCOSE 10 TABS/TUBE PO PRN (01:30)
[2017-01-06] MEDS ORDERED: GLUCAGON FOR INJ 1 MG VIAL SQ PRN (01:30)
[2017-01-06] MEDS ORDERED: DEXTROSE 50% 50 ML SYR IV PRN (01:30)
[2017-01-06] MEDS ORDERED: ALBUTEROL HFA 8 GM INHALER INH PRN (01:45)
[2017-01-06] MEDS ORDERED: HOME MED ADMINISTRATION ONE (01:45)
--- NOTE | 2017-01-06 01:58 | History and Physical ---
History & Physical Date & Time of Service: Jan 06, 2017 at 01:45 Chief Complaint: Chf Exacerbation Primary Care Physician: Deedee Perkins PA-C History of Present Illness Source: patient, clinic records, hospital records 71 o M with pancreatic cancer and no h/o CAD presents with intermittent exertional chest pain and increased shortness of breath for the past 4-5 days. He had a fistula placed in his LUE last week and states that his post-op recovery went very well. He denies any pain in his calves or legs. He admits to a h/o asthma and was seen at his PCP's office in [place] who sent him home but then called and told him to go to the ER out of concern for a possible pneumothorax. On arrival to the ER, a repeat CXR was negative for a PTX but with his description of progressive worsening of dyspnea and chest pain, he was admitted for further workup/treatment. He does take Lasix and is not on home oxygen but is apparently requiring 2L via nasal canula in the ER. There is no respiratory distress present. His chest pain is described as being in his R anterior chest radiating up around his R shoulder and into his shoulder blade. He reports that exertion makes this worse, and there are no associated symptoms. He also denies any cough, fevers, chills, recent trauma to his shoulder. He states the chest pain lasts approx 5-15 minutes, is intermittent, and is relieved by rest. He denies having a heart history or chest pain issues in the past. He does report chronic shortness of breath but not to this extent. He does report recent wheezing at home for which he used his rescue inhaler with some improvement in breathing but only temporarily. He is not currently wheezing on exam and CXR appears clear of any acute congestion, however, CT chest without contrast reveals small bilateral pleural effusions with dependent atelectasis, ?atypical infectious appearing nodule in the RLL, chronic postinfectious/postinflammatory changes in the lingula, suspicious new ? metastatic lesion in the liver and a known solid pancreatic neoplasm that appears to have enlarged. Past Medical/Surgical History Medical Problems: (1) Anemia Status: Chronic (2) Asthma Status: Chronic (3) Diabetes Status: Chronic (4) Hypertension Status: Chronic (5) Liver cancer Status: Chronic (6) Pancreas cancer Status: Chronic (7) Right rib fracture Status: Resolved (8) Stenosis of cervical spine Status: Resolved (9) Traumatic joint effusion Status: Resolved Surgical Problems: (1) H/O cervical spine surgery Status: Resolved (2) S/P foot surgery Status: Chronic (3) S/P knee surgery Status: Chronic (4) S/P lumbar spine operation Status: Chronic Family History Cancer Diabetes mellitus Heart disease Hypertension Lung disease Social History Smoking Status: Former Smoker Smokeless Tobacco Use: Unknown Alcohol Use: none Drug Use: none Marital Status: Housing status: lives with significant other Occupational Status: retired Immunizations History of Influenza Vaccine: Yes Influenza Vaccine Date: Jan 01, 2016 History of Tetanus Vaccine?: Yes Tetanus Immunization Date: Oct 06, 2008 History of Pneumococcal: No History of Hepatitis B Vaccine: No Multi-Drug Resistant Organisms History of MDRO: No Allergies Coded Allergies: Sulfa Antibiotics (Verified Allergy, Mild, RASH, 01/05/17) NSAIDs (Unverified Allergy, Unknown, "NO NSAIDS"due to kidney disease, 01/05/17) Home Medications Scheduled Amlodipine (Norvasc), 2.5 MG PO QAM Calcitriol (Rocaltrol Cap), 0.25 MCG PO QAM Citalopram (Citalopram Hydrobromide), 40 MG PO DAILY Ergocalciferol (Vitamin D 11328 Unit), 1 TAB PO [id number] Everolimus (Afinitor), 10 MG PO QAM Fluticasone Prop/Salmeterol (Advair Diskus 250/50 60 Dose), 1 PUFF INH DAILY Furosemide (Lasix), 40 MG PO BID Gabapentin (Neurontin), 400 MG PO BID Insulin Glargine (Lantus Solostar), 55 UNITS SC QAM Insulin Lispro (Human) (Humalog Kwikpen), 1 DOSE SC UD Ipratropium-Albuterol (Combivent Respimat), 1 PUFFS INH QID Ranitidine Hcl (Zantac), 150 MG PO QPM Sevelamer Carbonate (Renvela), 800 MG PO TIDM Simvastatin (Zocor), 20 MG PO QPM [Octreotide], 1 DOSE INJ [id number] Scheduled PRN Acetaminophen (Tylenol), 650 MG PO Q4H PRN for MILD PAIN Albuterol Sulfate (Proair Respiclick), 2 PUFFS INH Q4 PRN for Wheezing Glucagon (Glucagon Emergency Kit), 1 MG SC UD PRN for HYPOGLYCEMIA PROTOCOL Meclizine HCl (Meclizine 25), 25 MG PO TID PRN for Dizziness or Vertigo Review of Systems At least ten systems were reviewed and negative except as indicated in HPI Physical Exam Vital Signs Date Time Temp Pulse Resp B/P (MAP) Pulse Ox O2 Delivery O2 Flow Rate FiO2 01/06/17 01:00 Nasal Cannula 2.0 01/06/17 00:42 36.9 98 20 162/81 97 Nasal Cannula 2.0 01/05/17 23:37 90 18 158/74 98 Room Air 01/05/17 23:10 93 01/05/17 21:31 93 18 160/83 98 Room Air 01/05/17 20:48 88 20 156/77 98 Nasal Cannula 2.0 01/05/17 19:43 85 18 144/72 100 Nasal Cannula 2.0 01/05/17 19:16 88 01/05/17 19:09 99 2.0 01/05/17 19:09 99 Nasal Cannula 2.0 01/05/17 18:00 95 Room Air 01/05/17 18:00 36.8 87 24 130/63 96 Room Air General Appearance: WD/WN, no apparent distress, + pertinent finding (NC in place, no tachypnea or conversational dyspnea. ) Head: normocephalic, atraumatic Eyes: normal inspection, sclerae normal ENT: hearing grossly normal, pharynx normal Neck: supple, trachea midline Respiratory/Chest: chest non-tender, lungs clear, normal breath sounds, no respiratory distress, no accessory muscle use Cardiovascular: regular rate, rhythm, no edema, no gallop, no JVD, no murmur, normal peripheral pulses, + pertinent finding (palpable thrill in LUE) Abdomen/GI: normal bowel sounds, non tender, soft Back: normal inspection, no CVA tenderness Extremities/Musculoskelatal: normal inspection, no calf tenderness, no pedal edema, normal range of motion Neurologic/Psych: no motor/sensory deficits, alert, normal mood/affect, oriented x 3 Skin: normal color, warm/dry, no rash Diagnostics Laboratory Results 01/05/17 19:00 Red Blood Count 3.08, Mean Corpuscular Volume 79.5, Mean Corpuscular Hemoglobin 26.0, Mean Corpuscular Hemoglobin Concent 32.7, Mean Platelet Volume 11.6, Neutrophils (%) (Auto) 58.6, Lymphocytes (%) (Auto) 27.1, Monocytes (%) (Auto) 9.1, Eosinophils (%) (Auto) 3.7, Basophils (%) (Auto) 1.2, Neutrophils # (Auto) 3.53, Lymphocytes # (Auto) 1.63, Monocytes # (Auto) 0.55, Eosinophils # (Auto) 0.22, Basophils # (Auto) 0.07 01/05/17 19:00 Test 01/05/17 19:00 01/05/17 19:51 01/06/17 01:23 01/06/17 06:48 White Blood Count 6.02 K/uL (4.8-10.8) Red Blood Count 3.08 M/uL (4.7-6.1) Hemoglobin 8.0 g/dL (14.0-18.0) Hematocrit 24.5 % (42-52) Mean Corpuscular Volume 79.5 fL (80-100) Mean Corpuscular Hemoglobin 26.0 pg (25-34) Mean Corpuscular Hemoglobin Concent 32.7 g/dl (32-36) Platelet Count 168 K/uL (130-400) Mean Platelet Volume 11.6 fL (7.4-10.4) Neutrophils (%) (Auto) 58.6 % Lymphocytes (%) (Auto) 27.1 % Monocytes (%) (Auto) 9.1 % Eosinophils (%) (Auto) 3.7 % Basophils (%) (Auto) 1.2 % Neutrophils # (Auto) 3.53 K/uL (1.4-6.5) Lymphocytes # (Auto) 1.63 K/uL (1.2-3.4) Monocytes # (Auto) 0.55 K/uL (0.11-0.59) Eosinophils # (Auto) 0.22 K/uL (0-0.5) Basophils # (Auto) 0.07 K/uL (0-0.2) RDW Standard Deviation 40.9 fL (36.4-46.3) RDW Coefficient of Variation 14.2 % (11.5-14.5) Immature Granulocyte % (Auto) 0.3 % Immature Granulocyte # (Auto) 0.02 K/uL (0.00-0.02) Tear Drop Cells 1+ Prothrombin Time 11.0 SECONDS (9.0-12.0) Prothromb Time International Ratio 1.0 (0.9-1.1) Activated Partial Thromboplast Time 28.5 SECONDS (21.0-31.0) Partial Thromboplastin Ratio 1.1 Anion Gap 10.0 mmol/L (3-11) Est Creatinine Clear Calc Drug Dose 26.0 ml/min Estimated GFR () 20.2 Estimated GFR (Non- 17.4 BUN/Creatinine Ratio 15.3 (10-20) Calcium Level 8.2 mg/dl (8.5-10.1) Total Bilirubin < 0.1 mg/dl (0.2-1) Aspartate Amino Transf (AST/SGOT) 29 U/L (15-37) Alanine Aminotransferase (ALT/SGPT) 20 U/L (12-78) Alkaline Phosphatase 116 U/L (45-117) Pro-B-Type Natriuretic Peptide 5366 pg/ml (0-900) Total Protein 7.1 gm/dl (6.4-8.2) Albumin 3.1 gm/dl (3.4-5.0) Globulin 4.0 gm/dl (2.5-4.0) Albumin/Globulin Ratio 0.8 (0.9-2) Chemistry Specimen Hemolysis Urine Color DK YELLOW Urine Appearance CLOUDY (CLEAR) Urine pH 5.0 (4.5-7.5) Urine Specific [place] 1.040 (1.000-1.030) Urine Protein 1+ (NEG) Urine Glucose (UA) NEG (NEG) Urine Ketones NEG (NEG) Urine Occult Blood NEG (NEG) Urine Nitrite NEG (NEG) Urine Bilirubin NEG (NEG) Urine Urobilinogen NEG (NEG) Urine Leukocyte Esterase NEG (NEG) Urine WBC (Auto) 1-5 /hpf (0-5) Urine RBC (Auto) 0-4 /hpf (0-4) Urine Hyaline Casts (Auto) 10-30 /lpf (0-5) Urine Epithelial Cells (Auto) 10-20 /lpf (0-5) Urine Bacteria (Auto) NEG (NEG) Urine Pathogenic Casts 5-10 GRANULAR CASTS /lpf (0) Urine Yeast (Auto) (NONE PRSENT) Hepatitis C Antibody NEG (NEG) Bedside Glucose 123 mg/dl (70-99) Test 01/06/17 07:00 Estimated Average Glucose 154 mg/dl Hemoglobin A1c 7.0 % (4.5-5.6) Total Creatine Kinase 88 U/L (39-308) Creatine Kinase MB 0.8 ng/ml (0.5-3.6) Creatine Kinase MB Ratio 0.9 (0-3.0) Troponin I 0.029 ng/ml (0-0.045) Triglycerides Level 213 mg/dl (0-150) Cholesterol Level 116 mg/dl (0-200) HDL Cholesterol 36 mg/dl LDL Cholesterol, Calculated 37 mg/dl VLDL Cholesterol, Calculated 43 mg/dl Cholesterol/HDL Ratio 3.2 Results Past 24 Hours Test 01/05/17 19:00 01/05/17 19:51 01/05/17 20:48 01/05/17 21:16 Range/Units White Blood Count 6.02 4.8-10.8 K/uL Red Blood Count 3.08 4.7-6.1 M/uL Hemoglobin 8.0 14.0-18.0 g/dL Hematocrit 24.5 42-52 % Mean Corpuscular Volume 79.5 80-100 fL Mean Corpuscular Hemoglobin 26.0 25-34 pg Mean Corpuscular Hemoglobin Concent 32.7 32-36 g/dl Platelet Count 168 130-400 K/uL Mean Platelet Volume 11.6 7.4-10.4 fL Neutrophils (%) (Auto) 58.6 % Lymphocytes (%) (Auto) 27.1 % Monocytes (%) (Auto) 9.1 % Eosinophils (%) (Auto) 3.7 % Basophils (%) (Auto) 1.2 % Neutrophils # (Auto) 3.53 1.4-6.5 K/uL Lymphocytes # (Auto) 1.63 1.2-3.4 K/uL Monocytes # (Auto) 0.55 0.11-0.59 K/uL Eosinophils # (Auto) 0.22 0-0.5 K/uL Basophils # (Auto) 0.07 0-0.2 K/uL RDW Standard Deviation 40.9 36.4-46.3 fL RDW Coefficient of Variation 14.2 11.5-14.5 % Immature Granulocyte % (Auto) 0.3 % Immature Granulocyte # (Auto) 0.02 0.00-0.02 K/uL Tear Drop Cells 1+ Prothrombin Time 11.0 9.0-12.0 SECONDS Prothromb Time International Ratio 1.0 0.9-1.1 Activated Partial Thromboplast Time 28.5 21.0-31.0 SECONDS Partial Thromboplastin Ratio 1.1 Sodium Level 141 136-145 mmol/L Potassium Level 4.4 3.5-5.1 mmol/L Chloride Level 109 98-107 mmol/L Carbon Dioxide Level 23 21-32 mmol/L Anion Gap 10.0 3-11 mmol/L Blood Urea Nitrogen 52 7-18 mg/dl Creatinine 3.40 0.60-1.40 mg/dl Est Creatinine Clear Calc Drug Dose 26.0 ml/min Estimated GFR () 20.2 Estimated GFR (Non- 17.4 BUN/Creatinine Ratio 15.3 10-20 Random Glucose 60 70-99 mg/dl Calcium Level 8.2 8.5-10.1 mg/dl Total Bilirubin < 0.1 0.2-1 mg/dl Aspartate Amino Transf (AST/SGOT) 29 15-37 U/L Alanine Aminotransferase (ALT/SGPT) 20 12-78 U/L Alkaline Phosphatase 116 45-117 U/L Total Creatine Kinase 110 39-308 U/L Creatine Kinase MB 1.2 0.5-3.6 ng/ml Creatine Kinase MB Ratio 1.1 0-3.0 Troponin I 0.023 0-0.045 ng/ml Pro-B-Type Natriuretic Peptide 5366 0-900 pg/ml Total Protein 7.1 6.4-8.2 gm/dl Albumin 3.1 3.4-5.0 gm/dl Globulin 4.0 2.5-4.0 gm/dl Albumin/Globulin Ratio 0.8 0.9-2 Chemistry Specimen Hemolysis Urine Color DK YELLOW Urine Appearance CLOUDY CLEAR Urine pH 5.0 4.5-7.5 Urine Specific [place] 1.040 1.000-1.030 Urine Protein 1+ NEG Urine Glucose (UA) NEG NEG Urine Ketones NEG NEG Urine Occult Blood NEG NEG Urine Nitrite NEG NEG Urine Bilirubin NEG NEG Urine Urobilinogen NEG NEG Urine Leukocyte Esterase NEG NEG Urine WBC (Auto) 1-5 0-5 /hpf Urine RBC (Auto) 0-4 0-4 /hpf Urine Hyaline Casts (Auto) 10-30 0-5 /lpf Urine Epithelial Cells (Auto) 10-20 0-5 /lpf Urine Bacteria (Auto) NEG NEG Urine Pathogenic Casts 5-10 GRANULAR CASTS 0 /lpf Urine Yeast (Auto) NONE PRSENT Bedside Glucose 42 99 70-99 mg/dl Test 01/06/17 01:04 01/06/17 01:20 01/06/17 01:23 Range/Units Creatine Kinase MB Ratio 0-3.0 Diagnostic Radiology (CHEST) THORAX WITHOUT CLINICAL HISTORY: 71 years-old Male presenting with SOB, CRI. outpt xrayr questioned pneumo. TECHNIQUE: Multidetector CT imaging of the chest was performed without the use of intravenous contrast. IV contrast: None. A dose lowering technique was used consistent with the principles of ALARA (as low as reasonably achievable). COMPARISON: 04/05/2012. CT DOSE (mGy.cm): The estimated cumulative dose is 589.34 mGy.cm. FINDINGS: Front End Developer Javascript Html Css topogram: Unremarkable. On soft tissue windows, bilateral gynecomastia. Few small nodules noted in the thyroid. No axillary, supraclavicular, or mediastinal lymphadenopathy. Evaluation of the radha limited without intravenous contrast. Atherosclerosis of the aorta. Mild multichamber enlargement of the heart. Intraventricular blood flow is less dense than adjacent myocardium suggesting anemia. Mitral annular and coronary artery calcification. Trace pericardial effusion. Small bilateral pleural effusions. Cholelithiasis. Ill-defined hypodense lesion in the right hepatic lobe (series 2 image 60), new from prior exam in 2012. Calcification along the atrophic lateral segment of the left hepatic lobe unchanged. Slight interval increased size of the solid round 3.5 cm lesion in the pancreatic tail, previously 2.5 cm. On lung windows, dependent consolidation and volume loss at the lung bases, likely passive atelectasis. Subpleural regular opacity with adjacent calcification at the site of prior consolidation, likely scarring. Focal nodularity in the superior segment of the right lower lobe (for example series 4 image 177). Minimal groundglass centrilobular opacities in the lingula suggested primarily in a subpleural distribution, likely postinfectious/postinflammatory as these changes were apparent to some degree on the prior exam. Airways patent. On bone windows, degenerative changes of the spine. Partially visualized posterior cervical fusion hardware. IMPRESSION: 1. Small bilateral pleural effusions with dependent atelectasis. 2. Minimal nodularity in the superior segment of the right lower lobe. An atypical infectious etiology cannot be excluded. 3. Chronic postinfectious/postinflammatory changes in the lingula. 4. Ill-defined hypodense lesion in the right hepatic lobe is suspicious and new from prior exam in 2013. This raises concern for a metastatic lesion. Further evaluation with dedicated contrast enhanced liver CT or MR recommended and correlation for a history of primary malignancy. 5. Interval increased size of the solid pancreatic neoplasm. This is incompletely characterized without intravenous contrast. Differential considerations include solid pseudopapillary epithelial neoplasm, serous cystadenoma, focal side branch intraductal papillary mucinous neoplasm, or acinar carcinoma. Further evaluation could be considered as clinically warranted. CHEST ONE VIEW PORTABLE CLINICAL HISTORY: 71 years-old Male presenting with EVALUATE RESPIRATORY DISTRESS.DYSPNEA. TECHNIQUE: Portable upright AP view of the chest was obtained. COMPARISON: 05/01/2015. FINDINGS: Cardiac silhouette remains enlarged. Left basilar opacity decreased from prior. Small left pleural effusion. Right lung and pleural space clear. Partial visualization of cervical fusion hardware. Degenerative changes of the spine. Upper abdomen normal. IMPRESSION: 1. Persistent although decreased left basilar opacities with a small left pleural effusion. This may represent atelectasis. 2. Cardiomegaly. No meggan pulmonary edema. EKG SR 87 Impression Assessment and Plan 71 yo M with pancreatic cancer and worsening renal failure s/p fistula placement last week presents with worsening SOB and exertional chest pain x 2 weeks. 1. Dyspnea 2/2 acute CHF exacerbation-worse on exertion and noticeable in the past 2 weeks. He is currently requiring oxygen. So signs of infection are present. He has possible progression of his pancreatic cancer with a lesion in the liver suspicious for metastasis, definite worsened renal failure which sets him up for easy fluid overload and CHF. Clinically it appears he is having a heart failure exacerbation. He was started on IV Lasix BID and will adjust Lasix based on urine output. Of note PE was considered in light of recent procedure, however, seems less likely at this time without severe hypoxia or tachycardia. Would consider this if no improvement on initial therapies. Additionally, his chest pain has a reported exertional component so will trend cardiac enzymes. Echo in am. 2. CKD IV-progressively worsened renal failure s/p fistula placement last week , currently not on dialysis. Consulting Nephrology for evaluation 3. Asthma-appears stable, there is no wheezing on exam. Nebs PRN, cont home regimen. 4. Anemia-likely related to CKD and contributing to dyspnea on exertion above. 5. HTN-at goal, cont to monitor 6. Pancreatic cancer-cont maintenece [employer]. DVT proph-Heparin Full Code Dispo-to telemetry Gabby Garcia DO [facility] Level of Care Telemetry Advanced Directives Existing Living Will: Yes Existing Power of Bronze Chaser: Yes Resuscitation Status FULL RESUSCITATION VTE Prophylaxis VTE Risk Assessment Done? Y/N: Yes Risk Level: Moderate Given or contraindicated: Unfractionated heparin SQ
[2017-01-06 02:11] LABS: CKMB/CK RATIO 0.9 (0-3.0)
[2017-01-06] MEDS ORDERED: HEPARIN SOD 5000 UNIT/0.5 ML CARP SQ SCH (06:00)
[2017-01-06] MEDS ORDERED: PERFLUTREN LIPID MICROSPHERE (DEFINITY) IV ONE (07:29)
[2017-01-06 08:12] LABS: CHOLESTEROL/HDL RATIO 3.2; CKMB/CK RATIO 0.9 (0-3.0)
[2017-01-06] MEDS: FUROSEMIDE INJ 40 MG in SYRINGE 0 ML IV SCH ×2 (08:44→17:46)
[2017-01-06] MEDS: GABAPENTIN 400 MG CAP PO SCH ×2 (08:45→20:36)
[2017-01-06] MEDS: FLUTICASONE/SALMETEROL 250/50 (ADVAIR) 14 PUFF/1 INHALER INH SCH (08:45)
[2017-01-06] MEDS: SEVELAMER HYDROCH 800 MG TAB PO SCH ×3 (08:45→17:46)
[2017-01-06] MEDS: AMLODIPINE BESYLATE 5 MG TAB PO SCH (08:46)
[2017-01-06] MEDS: CALCITRIOL 0.25 MCG CAP PO SCH (08:46)
[2017-01-06] MEDS: CITALOPRAM 40 MG TAB PO SCH (08:46)
[2017-01-06] MEDS: IPRATROPIUM BROMIDE/ALBUTEROL respimat INH INH SCH ×4 (08:47→20:38)
[2017-01-06] MEDS: INSULIN ASPART 100 UNITS/ML 3 ML PEN SC SCH ×4 (08:53→20:42)
[2017-01-06] MEDS: INSULIN GLARGINE SOLOSTAR 100 UNITS/ML 3 ML PEN SC SCH ×2 (08:54→20:41)
[2017-01-06] MEDS ORDERED: ERGOCALCIFEROL 50,000 INTER.UNIT CAP PO SCH (09:00)
--- NOTE | 2017-01-06 09:21 | ECHOCARDIOGRAM REPORT ---
*NOTICE TO RECEIVING REPUBLICAN AGENCY This information is strictly Confidential and protected under [place] law. [place] law prohibits you from making any further disclosure of this information unless further disclosure is expressly permitted by the written consent of the person to whom it pertains or is authorized by law. A general authorization for the release of medical or other information is not sufficient for this purpose. Hospital accepts no responsibility if the information is made available to any other person, INCLUDING THE PATIENT. Interpretation Summary * Name: CHANTE LAMB Study Date: 01/06/2017 07:06 AM BP: 118/64 mmHg * Patient Location: C.2T\S\S240\S\2 HR: 86 * : 1945 (M/d/yy) Gender: Male Height: 72 in * Age: 71 yrs Ethnicity: CA Weight: 235 lb * Ordering Physician: Gabby Garcia * Referring Physician: Self, Referred * Performed By: Marguerite Giles RCS * * Reason For Study: CHF * BSA: 2.3 m2 * -- Conclusions -- * Compared to previous study of 04/30/15: pulmonary hypertension is now present. * Normal LV chamber size with mild concentric LVH. * Normal LV systolic function, EF 55-60%. * No segmental left ventricular wall motion abnormalities are noted. * Grade I diastolic dysfunction. * Mild mitral regurgitation. * Pulmonary hypertension is present with a PASP of 49 mmHg assuming a RA pressure of 3 mmHg. Procedure Details * A complete two-dimensional transthoracic echocardiogram was performed (2D, M-mode, Doppler and color flow Doppler). * A contrast injection of Definity was performed to improve assessment of LV function. * Contrast was injected into an intravenous site in the right arm. * One vial of Definity ultrasound contrast was diluted in normal saline to a total volume of 10 ml. A total of '2' ml of solution was administered during imaging. * Lot # [id number] of Definity utilized for procedure. * Expiration date JAN 17. * The attending nurse who injected the contrast agent was TANVIR FAITH, JED. Left Ventricle * The left ventricle is normal in size. * There is mild concentric left ventricular hypertrophy. * Left ventricular systolic function is normal. * No segmental left ventricular wall motion abnormalities are noted. * Ejection Fraction = 55-60%. * The left ventricular wall motion is normal. Right Ventricle * The right ventricular cavity size is normal (basal dimension <4.2 cm in right ventricular apical 4-chamber view). * The right ventricular systolic function is normal as assessed by tricuspid annular plane systolic excursion (TAPSE) (normal >1.5 cm). Atria * The left atrium is mildly dilated. * Right atrial size is normal. * No ASD detected; PFO is not assessed. Mitral Valve * The mitral valve anatomy is normal. * There is no mitral valve stenosis. * There is mild mitral regurgitation. Tricuspid Valve * The tricuspid valve is normal in structure and function. Aortic Valve * The aortic valve is normal in structure and function. Pulmonic Valve * The pulmonary valve is not well seen, but the Doppler examination is normal without significant regurgitation or stenosis. Great Vessels * The aortic root is normal size. Pericardium/Pleural * Small pericardial effusion. * A loculated pericardial effusion is noted. Left Ventricular Diastolic Function * Grade I diastolic dysfunction, (abnormal relaxation pattern). MMode 2D Measurements and Calculations IVSd 1.6 cm IVSs 1.6 cm LVIDd 4.3 cm LVIDs 3.0 cm LVPWd 1.8 cm LVPWs 1.3 cm IVS/LVPW 0.89 FS 30.0 % EDV(Teich) 84.1 ml ESV(Teich) 35.7 ml EF(Teich) 57.5 % EDV(cubed) 80.7 ml ESV(cubed) 27.7 ml EF(cubed) 65.7 % % IVS thick 2.0 % % LVPW thick -26.26 % LV mass(C)d 309.3 grams LV mass(C)dI 135.6 grams/m\S\2 LV mass(C)s 152.1 grams LV mass(C)sI 66.6 grams/m\S\2 SV(Teich) 48.3 ml SI(Teich) 21.2 ml/m\S\2 SV(cubed) 53.0 ml SI(cubed) 23.2 ml/m\S\2 Ao root diam 3.3 cm Ao root area 8.3 cm\S\2 LA dimension 5.0 cm LA/Ao 1.5 LVOT diam 2.0 cm LVOT area 3.2 cm\S\2 Doppler Measurements and Calculations MV E max tigre 142.6 cm/sec MV A max tigre 144.1 cm/sec MV E/A 0.99 MV P1/2t max tigre 143.4 cm/sec MV P1/2t 82.0 msec MVA(P1/2t) 2.7 cm\S\2 MV dec slope 512.3 cm/sec\S\2 MV dec time 0.19 sec MR max tigre 502.8 cm/sec MR max PG 101.2 mmHg PA V2 max 83.5 cm/sec PA max PG 2.8 mmHg TR max tigre 340.3 cm/sec
[2017-01-06] MEDS ORDERED: ENOXAPARIN 1 MG/KG SQ ONE (10:31)
--- NOTE | 2017-01-06 11:25 | CARDIOLOGY CONSULTATION ---
DATE OF CONSULTATION: 01/06/2017 CONSULTATION REQUESTED BY: Dr. Garcia. REASON FOR CONSULTATION: Shortness of breath. HISTORY OF PRESENT ILLNESS: Mr. Murillo is a very pleasant 71-year-old gentleman, who has never been seen by cardiology. He presented to [facility] Emergency Department on 01/05/2017 at the urging of his family physician with a complaint of shortness of breath. The patient states that for the last 3-4 days, he has been having significant shortness of breath with exertion. He states that this is new. It happened very acutely and there was just something he noticed when he woke up the other day. He states he gets to the point where he can only walk a few steps, where he has to stop and catch his breath. Along with this, he gets occasional sharp right-sided stabbing chest pain, but not consistently. He states that the pain is not persistent and it is not something he has really been paying attention to. His finally talked him into seen his family doctor on the , where he was directed to the Emergency Room for possible pneumothorax. He was also given nebulizers through his primary care physician's office with maybe slight very short lived improvement of shortness of breath. Upon presentation to the Emergency Department, the patient was not significantly hypoxic; however, he was given 2 liters of nasal cannula oxygen and his symptoms immediately improved. He was admitted to telemetry. Upon further questioning, the patient admits he has had bilateral lower extremity edema, which has been a chronic ongoing issue with his worsening renal function. He has not had any significant pain, but does admit to occasional cramping over the last 4 days of his bilateral calves, but he did not think much of it. Also of note, the patient recently had an AV fistula placed in his left upper extremity on December 27. PAST SURGICAL HISTORY: 1. Left upper extremity AV fistula on 12/27/2016. 2. Carpal tunnel surgery. 3. Foot surgery. 4. Bone spur excision from his neck. 5. Laminectomy. MEDICAL ILLNESSES: 1. Stage IV chronic kidney disease. 2. Diabetes. 3. Pancreatic carcinoma, metastatic to the liver. 4. History of asthma. 5. Depression. 6. Dyslipidemia. FAMILY HISTORY: Denies any premature coronary artery disease or sudden cardiac . SOCIAL HISTORY: The patient is a former smoker. Denies any alcohol or recreational drug use. He is and lives at home with his . 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 REVIEW OF SYSTEMS: As per HPI. All other review of systems reviewed and negative at this time. ALLERGIES: SULFA. MEDICATIONS AN OUTPATIENT: 1. Celexa daily. 2. Norvasc 2.5 mg daily. 3. Neurontin as needed. 4. Zantac daily. 5. Zocor 20 mg daily. 6. Everolimus as directed. 7. Insulin as directed. 8. Lasix 40 mg b.i.d. PHYSICAL EXAMINATION: VITALS: Temperature 37.5, pulse 86, respiratory rate 16, blood pressure 166/75 and currently saturating 96% on 2 liters oxygen via 2 liters nasal cannula. GENERAL: Awake, alert, and oriented x3, in no acute distress. HEENT: Normocephalic and atraumatic. Pupils equal, round and react to light and accommodation. Extraocular muscles intact. Anicteric sclerae. Moist mucous membranes. NECK: No JVD and no bruit. CARDIOVASCULAR: Regular. Positive S4. Normal S1 and S2. No S3. No murmurs or rubs. PULMONARY: Clear to auscultation bilaterally. No rales, rhonchi, or wheezing. ABDOMEN: Bowel sounds x4. Soft. No rebound, guarding, or tenderness. No organomegaly. EXTREMITIES: +2 bilateral lower extremity pitting edema. No clubbing or cyanosis. No significant tenderness to palpation. Homans sign is not present. SKIN: Warm and dry with chronic venous stasis changes of the lower extremities. TEST RESULTS: A 12-lead EKG performed upon presentation to the Emergency Department independently reviewed at this time shows sinus rhythm at 87 beats per minute, normal axis, normal intervals, and nonspecific inverted T waves in the inferior leads, new compared to previous study. A 2D echocardiogram was read as compared to previous study of December 2015, pulmonary hypertension is now present. Normal LV chamber size with mild concentric LVH. Normal LV systolic function, EF 55%-60%. No segmental left ventricular wall motion abnormalities were noted. Grade 1 diastolic dysfunction. Mild mitral regurgitation. Pulmonary hypertension is present with a pulmonary artery systolic pressure of 49 mmHg, assuming a right atrial pressure of 3 mmHg. IMPRESSION: 1. Acute shortness of breath, suspicious for pulmonary embolism. 2. Metastatic pancreatic carcinoma. 3. Stage IV chronic kidney disease. 4. Chronic lower extremity edema. 5. History of tobacco abuse. 6. Pulmonary hypertension. RECOMMENDATIONS: It was my pleasure to see Mr. Murillo in consultation today. Given the patient's underlying carcinoma along with the fact that the acute onset of shortness of breath along with newly discovered pulmonary hypertension and relief of his symptoms with oxygen, I am highly suspicious that the patient suffered from a pulmonary embolism. So, given his renal function, I am going to perform a CTA of the chest at this point; however, my suspicion is high enough that I do believe it would be mcarthur to treat him. So, I will give him Lovenox weight based daily given his renal function based on his weight. We will also perform lower extremity Doppler as well as left upper extremity Doppler to rule out any continued DVT and a VQ scan will be performed. Further recommendations to follow the above studies. MTDD
[2017-01-06] MEDS ORDERED: ENOXAPARIN 120 MG/0.8 ML SYR SQ SCH (13:00)
--- NOTE | 2017-01-06 13:34 | NEPHROLOGY CONSULTATION ---
DATE OF CONSULTATION: 01/06/2017 DATE OF CONSULTATION: 01/06/2017 REASON FOR CONSULT: Advanced renal failure. HISTORY OF PRESENT ILLNESS: The patient is a 71-year-old male who has known CKD stage IV with a baseline creatinine in the 3's and he is followed by Dr. Maribel Dawn. In fact, he just had an AV fistula done in preparation for future dialysis on 12/27/[address] Fagan which is just a week ago. The patient states that for the last week or so he has been having significant shortness of breath as well as orthopnea. The patient has known pancreatic cancer which has metastasized to the liver. At the time of admission, the patient did require oxygen. He does not have any prior cardiac history. He did have an echocardiogram earlier today which showed pulmonary hypertension, but the left ventricle was fairly normal. Last night he got both Lasix 40 mg IV as well as heparin. The patient has been seen by cardiology also who strongly feels that patient probably had PE given new onset pulmonary hypertension and his underlying pancreatic cancer history and hypoxia. With the use of IV Lasix the patient made about 800 mL of urine. Creatinine yesterday at the time of admission was 3.4, which is not a whole lot higher than his baseline. At this time, patient feels slightly better than yesterday. PAST MEDICAL AND SURGICAL HISTORY: Chronic anemia, chronic diabetes, hypertension, history of pancreatic cancer with mets to liver, history of right hip fracture, cervical spine stenosis, foot surgery, knee surgeries, lumbar spine operation. FAMILY HISTORY: Cancer, diabetes, heart disease, hypertension, lung disease. SOCIAL HISTORY: Former smoker, and lives with significant other. HOME MEDICATIONS: List was reviewed in detail and includes amlodipine, calcitriol, citalopram, vitamin D, Advair Diskus, Lasix 40 mg twice daily. The dose of Lasix was increased just few days prior to hospitalization, Renvela 3 times a day, octreotide 1 injection every 28 days, Zantac, Combivent, Humalog, Lantus, Neurontin. Inpatient medication list was also reviewed in detail. REVIEW OF SYSTEMS: Already detailed in HPI. Unless listed otherwise 12 systems were reviewed and negative. PHYSICAL EXAMINATION: GENERAL: Elderly white male who does not appear to be in severe respiratory distress at this time. He is lying on the edge of the bed and eating his lunch. VITAL SIGNS: Blood pressure is 139/64, 97% on 2 liter nasal cannula, pulse rate 79 per minute, temperature 36.9, respiratory rate 19 per minute. HEAD, EYES, EARS, NOSE, AND THROAT: Mucous membrane is moist. NECK: Supple. Jugular venous distention is not present. CARDIOVASCULAR: Regular, normal S1 and S2. No murmur, rubs. PULMONARY: Bilateral occasional basal crackles, especially on the left lung base. ABDOMEN: Soft, nontender, obesity. EXTREMITIES: 2+ bilateral pitting edema. SKIN: Warm and dry with chronic venous stasis changes. LABORATORY TESTS: Reviewed in detail. Echocardiogram was reviewed. Chest x-ray was reviewed. ASSESSMENT AND PLAN: A 71-year-old male who has known CKD stage IV, now presenting with about a week history of increasing shortness of breath. 1. Chronic kidney disease IV. There is not a lot of acute component to his renal failure. This is mostly CKD with progression. He is already heading towards dialysis and has an AV fistula in place. He has significant lower extremity edema and he is probably in need of a higher dose of diuretics than he was taking as an outpatient. 2. Shortness of breath. Given acute new onset pulmonary hypertension and hypoxia and his cancer history, there is a strong possibility that patient has PE and he is appropriately being treated. Because of his renal failure, contrast has been avoided. He is getting a VQ scan for later today. But there is definitely some component of congestive heart failure also --whether this is related with pulmonary hypertension or CKD is hard to tell. I agree with continuing the Lasix 40 mg IV twice daily and using a higher dose of oral diuretics at the time of discharge. Continue to do labs on a daily basis including a renal panel. MTDD
--- NOTE | 2017-01-06 15:14 | DIAGNOSTIC IMAGING REPORT ---
LUNG IMAGING VQ CLINICAL HISTORY: 71 years-old Male with r/o PE. Acute shortness of breath with concern for pulmonary embolus. CHF exacerbation. Small bilateral pleural effusions with bibasilar opacities seen on comparison chest CT. COMPARISON STUDY: Chest radiograph 01/05/2017, chest CT 01/05/2017. TECHNIQUE: Initially, ventilation images of both lungs are obtained following the inhalation of 33 mCi of aerosolized technetium 99m DTPA. Subsequently, perfusion images of both lungs were obtained following the IV administration of 5.3 mCi of technetium 99m MAA. Ventilation and perfusion images were acquired in the anterior, posterior, and oblique projections. FINDINGS: A chest x-ray performed on 01/05/2017 showed bibasilar opacities with left pleural effusion. The ventilation of both lungs is normal and symmetric. Tracer is seen within the esophagus and stomach No perfusion defects are identified on the perfusion imaging. IMPRESSION:Low probability for pulmonary embolus. The above report was generated using voice recognition software. It may contain grammatical, syntax or spelling errors. Electronically signed by: Valentin Green M.D. 01/06/2017 3:12 PM Dictated Date/Time: 01/06/2017 3:07 PM
--- NOTE | 2017-01-06 15:24 | Progress Note ---
Internal Med Progress Note Date of Service: Jan 06, 2017. Provider Documentation: SUBJECTIVE: The patient was seen and examined Admitted with acute SOB with H/O Ca Pancreas and CKD Feels a lot better with Oxygen and receiving one dose of Lasix OBJECTIVE: Vital Signs-as noted below Exam: General-No apparent distress Eyes-normal ENT-normal Neck-Supple Lungs-Decreased breath sound bilaterally at the bases Heart-Regular,no murmur appreciated Abdomen-Benign,no masses,bowel sound present Extremities-Chronic 1+ edema bilaterally Neuro-AAOx3 Lab data as noted below. ASSESSMENT & PLAN: 71 yo M with pancreatic cancer and worsening renal failure s/p fistula placement last week presents with worsening SOB and exertional chest pain x 2 weeks. Acute SOB Likely secondary to acute CHF exacerbation- ECHO;;Compared to previous study of 04/30/15: pulmonary hypertension is now present. * Normal LV chamber size with mild concentric LVH. * Normal LV systolic function, EF 55-60%. * No segmental left ventricular wall motion abnormalities are noted. * Grade I diastolic dysfunction. * Mild mitral regurgitation. * Pulmonary hypertension is present with a PASP of 49 mmHg assuming a RA pressure of 3 mmHg. Appreciate Cardiology input and recommendation Will need to r/o Pulmonary Embolism with H/O Ca pancreas So signs of infection are present. Feels a lot better with Oxygen US legs and VQ Scan Received 1 dose of Lovenox CKD IV-progressively worsened renal failure s/p fistula placement last week, currently not on dialysis. Consulting Nephrology for evaluation Does not know how long he has had CKD Appreciate Nephrology input Asthma-appears stable, there is no wheezing on exam. Nebs PRN, cont home regimen. Anemia-likely related to CKD and contributing to dyspnea on exertion above. HTN-at goal, cont to monitor Pancreatic cancer-cont maintenance Afinitor CT-Liver mets and increasing pancreatic mass Has an appointment with his Oncologist as an OP . DVT proph-Heparin Full Code Dispo-to telemetry Vital Signs: Date Time Temp Pulse Resp B/P (MAP) Pulse Ox O2 Delivery O2 Flow Rate FiO2 01/06/17 12:24 36.9 79 19 139/64 (89) 97 01/06/17 08:00 Nasal Cannula 2.0 01/06/17 07:40 36.9 97 20 145/68 (93) 94 Nasal Cannula 2.0 01/06/17 04:00 Nasal Cannula 2.0 01/06/17 03:52 36.7 86 18 118/64 (82) 99 Nasal Cannula 2.0 01/06/17 01:00 Nasal Cannula 2.0 01/06/17 00:42 36.9 98 20 162/81 97 Nasal Cannula 2.0 01/05/17 23:37 90 18 158/74 98 Room Air 01/05/17 23:10 93 01/05/17 21:31 93 18 160/83 98 Room Air 01/05/17 20:48 88 20 156/77 98 Nasal Cannula 2.0 01/05/17 19:43 85 18 144/72 100 Nasal Cannula 2.0 01/05/17 19:16 88 01/05/17 19:09 99 2.0 01/05/17 19:09 99 Nasal Cannula 2.0 01/05/17 18:00 95 Room Air 01/05/17 18:00 36.8 87 24 130/63 96 Room Air Lab Results: Results Past 24 Hours Test 01/05/17 19:00 01/05/17 19:51 01/05/17 20:48 01/05/17 21:16 Range/Units White Blood Count 6.02 4.8-10.8 K/uL Red Blood Count 3.08 4.7-6.1 M/uL Hemoglobin 8.0 14.0-18.0 g/dL Hematocrit 24.5 42-52 % Mean Corpuscular Volume 79.5 80-100 fL Mean Corpuscular Hemoglobin 26.0 25-34 pg Mean Corpuscular Hemoglobin Concent 32.7 32-36 g/dl Platelet Count 168 130-400 K/uL Mean Platelet Volume 11.6 7.4-10.4 fL Neutrophils (%) (Auto) 58.6 % Lymphocytes (%) (Auto) 27.1 % Monocytes (%) (Auto) 9.1 % Eosinophils (%) (Auto) 3.7 % Basophils (%) (Auto) 1.2 % Neutrophils # (Auto) 3.53 1.4-6.5 K/uL Lymphocytes # (Auto) 1.63 1.2-3.4 K/uL Monocytes # (Auto) 0.55 0.11-0.59 K/uL Eosinophils # (Auto) 0.22 0-0.5 K/uL Basophils # (Auto) 0.07 0-0.2 K/uL RDW Standard Deviation 40.9 36.4-46.3 fL RDW Coefficient of Variation 14.2 11.5-14.5 % Immature Granulocyte % (Auto) 0.3 % Immature Granulocyte # (Auto) 0.02 0.00-0.02 K/uL Tear Drop Cells 1+ Prothrombin Time 11.0 9.0-12.0 SECONDS Prothromb Time International Ratio 1.0 0.9-1.1 Activated Partial Thromboplast Time 28.5 21.0-31.0 SECONDS Partial Thromboplastin Ratio 1.1 Sodium Level 141 136-145 mmol/L Potassium Level 4.4 3.5-5.1 mmol/L Chloride Level 109 98-107 mmol/L Carbon Dioxide Level 23 21-32 mmol/L Anion Gap 10.0 3-11 mmol/L Blood Urea Nitrogen 52 7-18 mg/dl Creatinine 3.40 0.60-1.40 mg/dl Est Creatinine Clear Calc Drug Dose 26.0 ml/min Estimated GFR () 20.2 Estimated GFR (Non- 17.4 BUN/Creatinine Ratio 15.3 10-20 Random Glucose 60 70-99 mg/dl Calcium Level 8.2 8.5-10.1 mg/dl Total Bilirubin < 0.1 0.2-1 mg/dl Aspartate Amino Transf (AST/SGOT) 29 15-37 U/L Alanine Aminotransferase (ALT/SGPT) 20 12-78 U/L Alkaline Phosphatase 116 45-117 U/L Total Creatine Kinase 110 39-308 U/L Creatine Kinase MB 1.2 0.5-3.6 ng/ml Creatine Kinase MB Ratio 1.1 0-3.0 Troponin I 0.023 0-0.045 ng/ml Pro-B-Type Natriuretic Peptide 5366 0-900 pg/ml Total Protein 7.1 6.4-8.2 gm/dl Albumin 3.1 3.4-5.0 gm/dl Globulin 4.0 2.5-4.0 gm/dl Albumin/Globulin Ratio 0.8 0.9-2 Chemistry Specimen Hemolysis Urine Color DK YELLOW Urine Appearance CLOUDY CLEAR Urine pH 5.0 4.5-7.5 Urine Specific [place] 1.040 1.000-1.030 Urine Protein 1+ NEG Urine Glucose (UA) NEG NEG Urine Ketones NEG NEG Urine Occult Blood NEG NEG Urine Nitrite NEG NEG Urine Bilirubin NEG NEG Urine Urobilinogen NEG NEG Urine Leukocyte Esterase NEG NEG Urine WBC (Auto) 1-5 0-5 /hpf Urine RBC (Auto) 0-4 0-4 /hpf Urine Hyaline Casts (Auto) 10-30 0-5 /lpf Urine Epithelial Cells (Auto) 10-20 0-5 /lpf Urine Bacteria (Auto) NEG NEG Urine Pathogenic Casts 5-10 GRANULAR CASTS 0 /lpf Urine Yeast (Auto) NONE PRSENT Bedside Glucose 42 99 70-99 mg/dl Test 01/06/17 00:24 01/06/17 01:20 01/06/17 01:23 01/06/17 06:48 Range/Units Bedside Glucose 202 123 70-99 mg/dl Total Creatine Kinase 85 39-308 U/L Creatine Kinase MB 0.8 0.5-3.6 ng/ml Creatine Kinase MB Ratio 0.9 0-3.0 Troponin I 0.029 0-0.045 ng/ml Hepatitis C Antibody NEG NEG Test 01/06/17 07:00 01/06/17 11:25 Range/Units Estimated Average Glucose 154 mg/dl Hemoglobin A1c 7.0 4.5-5.6 % Total Creatine Kinase 88 39-308 U/L Creatine Kinase MB 0.8 0.5-3.6 ng/ml Creatine Kinase MB Ratio 0.9 0-3.0 Troponin I 0.029 0-0.045 ng/ml Triglycerides Level 213 0-150 mg/dl Cholesterol Level 116 0-200 mg/dl HDL Cholesterol 36 mg/dl LDL Cholesterol, Calculated 37 mg/dl VLDL Cholesterol, Calculated 43 mg/dl Cholesterol/HDL Ratio 3.2 Bedside Glucose 180 70-99 mg/dl
--- NOTE | 2017-01-06 17:37 | DIAGNOSTIC IMAGING REPORT ---
BILATERAL LOWER EXTREMITY VENOUS DOPPLER HISTORY: Acute bilateral lower extremity edema with CHF exacerbation r/o dvt COMPARISON STUDY: None. FINDINGS: There is normal compressibility, flow, and augmentation within the bilateral lower extremity deep venous systems. There is suboptimal evaluation of the lower extremity calf vessels secondary to nonspecific soft tissue edema. IMPRESSION: No sonographic evidence of deep venous thrombosis within the right or left lower extremity. Electronically signed by: Valentin Green M.D. 01/06/2017 5:35 PM Dictated Date/Time: 01/06/2017 5:33 PM
--- NOTE | 2017-01-06 17:40 | DIAGNOSTIC IMAGING REPORT ---
L VENOUS DOPPLER UPR EXT UNIL HISTORY: 71 years-old Male r/o dvt left upper extremity swelling with CHF exacerbation. COMPARISON: None available TECHNIQUE: Multiple real-time sonographic images of the left upper extremity deep venous system was obtained assessing grayscale appearance, color and spectral flow FINDINGS: There is normal flow, augmentation and compressibility within the left upper extremity deep venous system. Left upper extremity fistula within the area of the cephalic vein of the upper arm is seen and is patent. IMPRESSION: 1. No sonographic evidence of deep venous thrombosis within the left upper extremity deep venous system. 2. Patent left upper extremity fistula . The above report was generated using voice recognition software. It may contain grammatical, syntax or spelling errors. Electronically signed by: Valentin Green M.D. 01/06/2017 5:39 PM Dictated Date/Time: 01/06/2017 5:37 PM
[2017-01-06] MEDS: RANITIDINE HCL 150 MG TAB PO SCH (20:36)
[2017-01-06] MEDS: SIMVASTATIN 20 MG TAB PO SCH (21:07)
[2017-01-07 04:06] VITALS: BP 139/68; PULSE 85; TEMP 36.8; O2SAT 97
[2017-01-07] MEDS: HEPARIN SOD 5000 UNIT/0.5 ML CARP SQ SCH ×3 (06:09→21:00)
[2017-01-07 07:46] VITALS: BP 145/69; PULSE 86; TEMP 36.9; O2SAT 98
[2017-01-07] MEDS: AMLODIPINE BESYLATE 5 MG TAB PO SCH (08:58)
[2017-01-07] MEDS: FUROSEMIDE INJ 40 MG in SYRINGE 0 ML IV SCH ×2 (08:58→17:02)
[2017-01-07] MEDS: CALCITRIOL 0.25 MCG CAP PO SCH (08:58)
[2017-01-07] MEDS: CITALOPRAM 40 MG TAB PO SCH (08:58)
[2017-01-07] MEDS: IPRATROPIUM BROMIDE/ALBUTEROL respimat INH INH SCH ×4 (08:58→20:56)
[2017-01-07] MEDS: GABAPENTIN 400 MG CAP PO SCH ×2 (08:59→20:56)
[2017-01-07] MEDS: SEVELAMER HYDROCH 800 MG TAB PO SCH ×3 (08:59→17:02)
[2017-01-07] MEDS: FLUTICASONE/SALMETEROL 250/50 (ADVAIR) 14 PUFF/1 INHALER INH SCH (08:59)
[2017-01-07] MEDS: EVEROLIMUS 10 MG PO SCH (08:59)
[2017-01-07] MEDS ORDERED: ENOXAPARIN 1 MG/KG SQ SCH (09:00)
[2017-01-07] MEDS: INSULIN ASPART 100 UNITS/ML 3 ML PEN SC SCH ×4 (09:04→21:00)
[2017-01-07] MEDS: INSULIN GLARGINE SOLOSTAR 100 UNITS/ML 3 ML PEN SC SCH ×2 (09:04→20:59)
[2017-01-07 09:40] LABS: HEMATOCRIT 25.4 % (42-52); MEAN CELL VOLUME 79.6 fL (80-100); MEAN CORPUSCULAR HEMOGLOBIN 26.3 pg (25-34); MEAN CORPUSCULAR HGB CONC 33.1 g/dl (32-36); MEAN PLATELET VOLUME 11.9 fL (7.4-10.4); PLATELET COUNT 183 K/uL (130-400); RED BLOOD COUNT 3.19 M/uL (4.7-6.1); WHITE BLOOD COUNT 7.08 K/uL (4.8-10.8)
[2017-01-07 10:06] LABS: CREATININE 3.7 mg/dl (0.60-1.40)
[2017-01-07 10:07] LABS: CALCIUM 8.2 mg/dl (8.5-10.1); MAGNESIUM 1.8 mg/dl (1.8-2.4)
[2017-01-07 11:46] VITALS: BP 148/72; PULSE 83; TEMP 36.2; O2SAT 97
--- NOTE | 2017-01-07 13:13 | Cardiology Follow-Up ---
Subjective Subjective Date of Service: Jan 07, 2017. Pt evaluation today including: conversation w/ patient, physical exam, chart review, lab review, review of studies, review of inpatient medication list Additional Details: Pt seen and examined, states that he feels well. Remains without difficulty breathing as long as oxygen in place. Denies cp, palpitations, lightheadedness or dizziness. tele reviewed: sinus rhythm without arrhythmia or significant ectopy. Problem List Medical Problems: (1) Acute urinary retention Status: Acute (2) Altered mental status Status: Acute (3) Anemia Status: Chronic (4) CHF (congestive heart failure) Status: Acute (5) Constipation Status: Acute (6) Fall Status: Acute (7) Hypoglycemia Status: Acute (8) Hypothermia Status: Acute (9) Proctitis Status: Acute (10) Renal insufficiency Status: Acute (11) Renal insufficiency Status: Acute (12) SOB (shortness of breath) Status: Acute Social History Problems: (1) Status post cervical spinal fusion Status: Acute Review of Systems Respiratory: + shortness of breath, + dyspnea on exertion, No see HPI, No cough , No sputum, No wheezing, No dyspnea at rest, No hemoptysis, No problem reported Cardiac: + chest pain, No see HPI, No orthopnea, No PND, No edema, No claudication, No palpitations, No problem reported Objective Vital Signs Last Vital Signs Documentation Date Time Temp Pulse Resp B/P (MAP) Pulse Ox O2 Delivery O2 Flow Rate FiO2 01/07/17 11:46 36.2 83 16 148/72 (97) 97 2.0 01/07/17 04:06 Nasal Cannula Physical Exam: General Appearance: WD/WN, no apparent distress Eyes: bilateral eyes normal inspection, bilateral eyes PERRL, bilateral eyes EOMI ENT: normal ENT inspection, hearing grossly normal, pharynx normal Neck: supple, no adenopathy, thyroid normal, no JVD, no carotid bruits, trachea midline Respiratory/Chest: chest non-tender, lungs clear, normal breath sounds, no respiratory distress, no accessory muscle use Cardiovascular: regular rate, rhythm, no edema, no JVD, no murmur, + gallop/S4 Abdomen: normal bowel sounds, non tender, soft, no organomegaly, no pulsatile mass Extremities: non-tender, normal inspection, no pedal edema, no calf tenderness Neurologic/Psychiatric: 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 chest pain/sob VQ scan low probability, actually quite surprising discussed further options will proceed with dobutamine stress in AM patient counseled that should stress come back remarkable then next step would likely be cardiac cath risk of kidney injury with dye load but will discuss with nephrology prior to proceeding should it be necessary
[2017-01-07 15:28] VITALS: BP 171/74; PULSE 90; TEMP 36.8; O2SAT 98
--- NOTE | 2017-01-07 17:58 | Progress Note ---
Internal Med Progress Note Date of Service: Jan 07, 2017. Provider Documentation: SUBJECTIVE: The patient was seen and examined Admitted with acute SOB with H/O Ca Pancreas and CKD Feels a lot better with Oxygen and receiving one dose of Lasix Wants to go home Denies any symptoms OBJECTIVE: Vital Signs-as noted below Exam: General-No apparent distress Eyes-normal ENT-normal Neck-Supple Lungs-Decreased breath sound bilaterally at the bases Heart-Regular,no murmur appreciated Abdomen-Benign,no masses,bowel sound present Extremities-Chronic 1+ edema bilaterally Neuro-AAOx3 Lab data as noted below. ASSESSMENT & PLAN: 71 yo M with pancreatic cancer and worsening renal failure s/p fistula placement last week presents with worsening SOB and exertional chest pain x 2 weeks. Acute SOB Likely secondary to acute CHF exacerbation- ECHO;;Compared to previous study of 04/30/15: pulmonary hypertension is now present. * Normal LV chamber size with mild concentric LVH. * Normal LV systolic function, EF 55-60%. * No segmental left ventricular wall motion abnormalities are noted. * Grade I diastolic dysfunction. * Mild mitral regurgitation. * Pulmonary hypertension is present with a PASP of 49 mmHg assuming a RA pressure of 3 mmHg. Appreciate Cardiology input and recommendation Will need to r/o Pulmonary Embolism with H/O Ca pancreas So signs of infection are present. Feels a lot better with Oxygen US legs and VQ Scan-negative for any Thromboembolic disease Received 1 dose of Lovenox -discontinued Heparin as prophylaxis Likely Stress test in AM CKD IV-progressively worsened renal failure s/p fistula placement last week, currently not on dialysis. Consulting Nephrology for evaluation Does not know how long he has had CKD Appreciate Nephrology input Creatinine is slightly worse Asthma-appears stable, there is no wheezing on exam. Nebs PRN, cont home regimen. Anemia-likely related to CKD and contributing to dyspnea on exertion above. HTN-at goal, cont to monitor Pancreatic cancer-cont maintenance Afinitor CT-Liver mets and increasing pancreatic mass Has an appointment with his Oncologist as an OP . DVT proph-Heparin Full Code Dispo-to telemetry Vital Signs: Date Time Temp Pulse Resp B/P (MAP) Pulse Ox O2 Delivery O2 Flow Rate FiO2 01/07/17 16:00 Room Air 01/07/17 15:28 36.8 90 18 171/74 (106) 98 Nasal Cannula 2.0 01/07/17 12:00 Room Air 01/07/17 11:46 36.2 83 16 148/72 (97) 97 2.0 01/07/17 08:00 Room Air 01/07/17 07:46 36.9 86 16 145/69 (94) 98 2.0 01/07/17 04:06 36.8 85 20 139/68 (91) 97 Nasal Cannula 2.0 01/07/17 04:00 Nasal Cannula 2.0 01/07/17 00:00 Nasal Cannula 2.0 01/06/17 23:29 37.1 86 20 143/62 (89) 97 2.0 01/06/17 20:00 Nasal Cannula 2.0 01/06/17 19:18 36.9 85 18 124/60 (81) 96 Nasal Cannula 2.0 Lab Results: Results Past 24 Hours Test 01/06/17 20:18 01/07/17 09:00 01/07/17 09:21 01/07/17 10:50 Range/Units Bedside Glucose 250 238 227 70-99 mg/dl White Blood Count 7.08 4.8-10.8 K/uL Red Blood Count 3.19 4.7-6.1 M/uL Hemoglobin 8.4 14.0-18.0 g/dL Hematocrit 25.4 42-52 % Mean Corpuscular Volume 79.6 80-100 fL Mean Corpuscular Hemoglobin 26.3 25-34 pg Mean Corpuscular Hemoglobin Concent 33.1 32-36 g/dl RDW Standard Deviation 40.4 36.4-46.3 fL RDW Coefficient of Variation 14.0 11.5-14.5 % Platelet Count 183 130-400 K/uL Mean Platelet Volume 11.9 7.4-10.4 fL Sodium Level 136 136-145 mmol/L Potassium Level 5.0 3.5-5.1 mmol/L Chloride Level 103 98-107 mmol/L Carbon Dioxide Level 26 21-32 mmol/L Anion Gap 7.0 3-11 mmol/L Blood Urea Nitrogen 55 7-18 mg/dl Creatinine 3.70 0.60-1.40 mg/dl Est Creatinine Clear Calc Drug Dose 23.7 ml/min Estimated GFR () 18.2 Estimated GFR (Non- 15.7 BUN/Creatinine Ratio 15.0 10-20 Random Glucose 228 70-99 mg/dl Calcium Level 8.2 8.5-10.1 mg/dl Magnesium Level 1.8 1.8-2.4 mg/dl Test 01/07/17 16:08 Range/Units Bedside Glucose 223 70-99 mg/dl
[2017-01-07 19:05] VITALS: BP 146/70; PULSE 87; TEMP 36.8; O2SAT 99
[2017-01-07] MEDS: SIMVASTATIN 20 MG TAB PO SCH (20:56)
[2017-01-07] MEDS: RANITIDINE HCL 150 MG TAB PO SCH (20:56)
[2017-01-08 00:10] VITALS: BP 122/62; PULSE 90; TEMP 37; O2SAT 92
[2017-01-08 04:24] VITALS: BP 137/53; PULSE 79; TEMP 36.8; O2SAT 98
[2017-01-08] MEDS: HEPARIN SOD 5000 UNIT/0.5 ML CARP SQ SCH ×2 (06:06→13:36)
[2017-01-08 06:57] LABS: HEMATOCRIT 22.6 % (42-52); MEAN CELL VOLUME 78.2 fL (80-100); MEAN CORPUSCULAR HEMOGLOBIN 26.6 pg (25-34); MEAN CORPUSCULAR HGB CONC 34.1 g/dl (32-36); MEAN PLATELET VOLUME 11.3 fL (7.4-10.4); PLATELET COUNT 159 K/uL (130-400); RED BLOOD COUNT 2.89 M/uL (4.7-6.1)
[2017-01-08 07:11] VITALS: BP 119/63; PULSE 85; TEMP 36.6; O2SAT 93
[2017-01-08 07:26] LABS: BUN/CREATININE RATIO 16.2 (10-20); CREATININE 3.9 mg/dl (0.60-1.40); MAGNESIUM 1.9 mg/dl (1.8-2.4); PHOSPHORUS 5.1 mg/dl (2.5-4.9); POTASSIUM 4.5 mmol/L (3.5-5.1)
[2017-01-08] MEDS: SEVELAMER HYDROCH 800 MG TAB PO SCH ×3 (07:30→17:01)
[2017-01-08] MEDS: INSULIN ASPART 100 UNITS/ML 3 ML PEN SC SCH ×3 (07:46→17:07)
[2017-01-08] MEDS: IPRATROPIUM BROMIDE/ALBUTEROL respimat INH INH SCH ×3 (08:11→17:01)
[2017-01-08] MEDS: FLUTICASONE/SALMETEROL 250/50 (ADVAIR) 14 PUFF/1 INHALER INH SCH (08:11)
[2017-01-08] MEDS: INSULIN GLARGINE SOLOSTAR 100 UNITS/ML 3 ML PEN SC SCH (08:17)
[2017-01-08] MEDS: FUROSEMIDE INJ 40 MG in SYRINGE 0 ML IV SCH ×2 (08:19→17:01)
--- NOTE | 2017-01-08 08:48 | Clinical Documentation Query ---
QUERY 1 OF [address] MILES, In your clinical opinion is this patient being managed for: ( + ) Acute diastolic CHF exacerbation ( ) Not Agree ( ) Other explanation of clinical findings (Please Explain) ( ) Unable to determine (Please Define) ( ) Need to Discuss The medical record reflects the following clinical findings, treatment, and risk factors. Clinical Indicators: 71 yo male presenting with worsening dyspnea x 2 days. BNP 5366. CXR with Persistent although decreased left basilar opacities with a small left pleural effusion. ECHO showed EF 55-60% with grade I diastolic dysfunction. Documentation in the clinical record indicates acute CHF exacerbation. Treatment: tele monitoring, IV lasix, ECHO, O2 support, cardiac enzymes, cardiology and nephrology consults, daily wts, I/O, CHF teaching Risk Factors: age, DM, HTN, CKD, liver and pancreatic neoplasm QUERY 2 OF 2 In your clinical opinion is this patient being managed for: (+ ) Acute kidney failure ( ) Not Agree ( ) Other explanation of clinical findings (Please Explain) ( ) Unable to determine (Please Define) ( ) Need to Discuss The medical record reflects the following clinical findings, treatment, and risk factors. Clinical Indicators: Presented with Cr 3.4 which has trended up to Cr 3.9 Treatment:pending nephrology consult, monitor PRP's Risk Factors: IV diuresis for acute CHF, HTN, DM, cancer Please clarify and document your clinical opinion in the progress notes and discharge summary. Terms such as "probable", "suspected", "likely", "questionable", "possible", or "still to be ruled out" are acceptable. IF IN AGREEMENT, YOU MUST DOCUMENT ABOVE DIAGNOSTIC STATEMENT IN DAILY PROGRESS NOTES AND DISCHARGE SUMMARY. This document is not part of the patient's record. Thank You, Yun Cook, RN [phone]
[2017-01-08] MEDS: EVEROLIMUS 10 MG PO SCH (09:00)
[2017-01-08] MEDS ORDERED: METOPROLOL TARTRATE 1 MG/ML VIAL ONE (10:56)
[2017-01-08] MEDS ORDERED: DOBUTamine 500MG / 250ML D5W ONE (10:56)
[2017-01-08] MEDS ORDERED: ATROPINE SULFATE 0.1 MG/ML 5ML SYR ONE (10:56)
--- NOTE | 2017-01-08 12:02 | Cardiology Follow-Up ---
Subjective Subjective Date of Service: Jan 08, 2017. Pt evaluation today including: conversation w/ patient, physical exam, chart review, lab review, review of studies, review of inpatient medication list Additional Details: Pt seen and examined in [facility], no complaints overnight. Denies cp, sob, palpitations, lightheadedness or dizziness. Tele reviewed: sinus rhythm without arrhythmia or significant ectopy. Problem List Medical Problems: (1) Acute urinary retention Status: Acute (2) Altered mental status Status: Acute (3) Anemia Status: Chronic (4) CHF (congestive heart failure) Status: Acute (5) Constipation Status: Acute (6) Fall Status: Acute (7) Hypoglycemia Status: Acute (8) Hypothermia Status: Acute (9) Proctitis Status: Acute (10) Renal insufficiency Status: Acute (11) Renal insufficiency Status: Acute (12) SOB (shortness of breath) Status: Acute Social History Problems: (1) Status post cervical spinal fusion Status: Acute Review of Systems Respiratory: + shortness of breath, + dyspnea on exertion, No see HPI, No cough , No sputum, No wheezing, No dyspnea at rest, No hemoptysis, No problem reported Cardiac: + chest pain, No see HPI, No orthopnea, No PND, No edema, No claudication, No palpitations, No problem reported Objective Vital Signs Last Vital Signs Documentation Date Time Temp Pulse Resp B/P (MAP) Pulse Ox O2 Delivery O2 Flow Rate FiO2 01/08/17 07:30 Nasal Cannula 2.0 01/08/17 07:11 36.6 85 20 119/63 (81) 93 Physical Exam: General Appearance: WD/WN, no apparent distress Eyes: bilateral eyes normal inspection, bilateral eyes PERRL, bilateral eyes EOMI ENT: normal ENT inspection, hearing grossly normal, pharynx normal Neck: supple, no adenopathy, thyroid normal, no JVD, no carotid bruits, trachea midline Respiratory/Chest: chest non-tender, lungs clear, normal breath sounds, no respiratory distress, no accessory muscle use Cardiovascular: regular rate, rhythm, no edema, no JVD, no murmur, + gallop/S4 Abdomen: normal bowel sounds, non tender, soft, no organomegaly, no pulsatile mass Extremities: non-tender, normal inspection, no pedal edema, no calf tenderness Neurologic/Psychiatric: optometric aide II-XII nml as tested, no motor/sensory deficits, alert, normal mood/affect, oriented x 3 Skin: normal color, warm/dry, no rash Lymphatic: no adenopathy Assessment and Plan 1. chest pain/sob VQ scan low probability stress test nonischemic no cardiac source of symptoms discovered no further cardiac testing necessary at this time. only medication change would be to add aspirin 81mg daily for primary prevention ok to d/c to home from cardiac standpoint. no cardiac f/u necessary at this time f/u with pcp for further eval
--- NOTE | 2017-01-08 12:11 | DOBUTAMINE ECHO ---
*NOTICE TO RECEIVING REPUBLICAN AGENCY This information is strictly Confidential and protected under [place] law. [place] law prohibits you from making any further disclosure of this information unless further disclosure is expressly permitted by the written consent of the person to whom it pertains or is authorized by law. A general authorization for the release of medical or other information is not sufficient for this purpose. Hospital accepts no responsibility if the information is made available to any other person, INCLUDING THE PATIENT. Interpretation Summary * Name: CHANTE LAMB Study Date: 01/08/2017 09:55 AM BP: 146/66 mmHg * Patient Location: C.2T\S\S240\S\2 HR: 92 * : 1945 (M/d/yyy) Gender: Male Height: 72 in * Age: 71 yrs Ethnicity: CA Weight: 233 lb * Ordering Physician: Fransico Jones * Referring Physician: Self, Referred * Performed By: Chaz Reed RCS * * Reason For Study: Chest Pain * BSA: 2.3 m2 * -- Conclusions -- * Nonischemic dobutamine stress echocardiogram. * No arrhythmias. * Normal HR and BP response to exercise. * No symptoms reproduced. Procedure Details * DOBUTAMINE ECHO, CPT#93145 * A contrast injection of Definity was performed to improve assessment of LV function. * Contrast was injected into an intravenous site in the right arm. * One vial of Definity ultrasound contrast was diluted in normal saline to a total volume of 10 ml. A total of '8' ml of solution was administered during imaging. * Lot # [id number] of Definity utilized for procedure. * Expiration date . * The attending nurse who injected the contrast agent was Aries Connors RN. Left Ventricle * The left ventricle is normal in size. * Left ventricular systolic function is normal. * Ejection Fraction = 55-60%. * Resting wall motion: Normal. Stress wall motion: Appropriate increase in Left ventricular systolic function and decrease in cavity size. No stress induced segmental wall motion abnormalities. Stress Parameters * Normal baseline electrocardiogram. * No arrhythmia were noted with stress. * Stress ECG: No ST changes. No arrhythmias. * The stress portion of this study was personally supervised by the undersigned interpreting physician. * Rest heart rate was '92' BPM. * Rest blood pressure was '146/66' * Maximum heart rate achieved was 129 bpm. * Maximum heart rate was 85 % of maximum age-predicted heart rate. * Maximum blood pressure was '165/34' * Maximum Dobutamine infusion rate was '40' mcg/kg/min. * Dobutamine infusion was terminated due to achieving target heart rate * A total of 5 mg of IV Metoprolol was administered to reverse Dobutamine-induced tachycardia. * The patient did not exhibit any symptoms during drug infusion. * Normal blood pressure response to exercise.
[2017-01-08] MEDS: CITALOPRAM 40 MG TAB PO SCH (12:13)
[2017-01-08] MEDS: GABAPENTIN 400 MG CAP PO SCH (12:14)
[2017-01-08] MEDS ORDERED: ASPIRIN 81 MG ECTAB PO ONE (12:15)
[2017-01-08] MEDS: AMLODIPINE BESYLATE 5 MG TAB PO SCH (12:15)
[2017-01-08] MEDS: CALCITRIOL 0.25 MCG CAP PO SCH (12:15)
[2017-01-08 12:32] VITALS: BP 123/66; PULSE 75; TEMP 36.6; O2SAT 99
[2017-01-08] MEDS ORDERED: PERFLUTREN LIPID MICROSPHERE (DEFINITY) IV ONE (12:32)
[2017-01-08 15:24] VITALS: BP 130/68; PULSE 82; TEMP 36.7; O2SAT 99
--- NOTE | 2017-01-08 15:45 | Progress Note ---
Internal Med Progress Note Date of Service: Jan 08, 2017. Provider Documentation: SUBJECTIVE: The patient was seen and examined Admitted with acute SOB with H/O Ca Pancreas and CKD Feels a lot better with Oxygen and receiving one dose of Lasix Wants to go home Denies any symptoms Remains free of symptoms Leg swelling is better OBJECTIVE: Vital Signs-as noted below Exam: General-No apparent distress Eyes-normal ENT-normal Neck-Supple Lungs-Decreased breath sound bilaterally at the bases Heart-Regular,no murmur appreciated Abdomen-Benign,no masses,bowel sound present Extremities-Chronic 1+ edema bilaterally Clinically better today Neuro-AAOx3 Lab data as noted below. ASSESSMENT & PLAN: 71 yo M with pancreatic cancer and worsening renal failure s/p fistula placement last week presents with worsening SOB and exertional chest pain x 2 weeks. Acute SOB Likely secondary to acute Diastolic CHF : Initial ECHO;;Compared to previous study of 04/30/15: pulmonary hypertension is now present. * Normal LV chamber size with mild concentric LVH. * Normal LV systolic function, EF 55-60%. * No segmental left ventricular wall motion abnormalities are noted. * Grade I diastolic dysfunction. * Mild mitral regurgitation. * Pulmonary hypertension is present with a PASP of 49 mmHg assuming a RA pressure of 3 mmHg. Appreciate Cardiology input and recommendation Will need to r/o Pulmonary Embolism with H/O Ca pancreas So signs of infection are present. Feels a lot better with Oxygen US legs and VQ Scan-negative for any Thromboembolic disease Received 1 dose of Lovenox -discontinued Heparin as prophylaxis Likely Stress test in AM Stress ECHO:: Nonischemic dobutamine stress echocardiogram. * No arrhythmias. * Normal HR and BP response to exercise. * No symptoms reproduced. Will discharge home DHIRAJ on CKD CKD IV-progressively worsened renal failure s/p fistula placement last week, currently not on dialysis. Consulting Nephrology for evaluation Does not know how long he has had CKD Appreciate Nephrology input Creatinine is slightly worse Will have follow up with Nephrology as an OP Will discharge on Torsemide Asthma-appears stable, there is no wheezing on exam. Nebs PRN, cont home regimen. Will get 2 steps before discharge-May need Oxygen on discharge Anemia-likely related to CKD and contributing to dyspnea on exertion above. HTN-at goal, cont to monitor Pancreatic cancer-cont maintenance Afinitor CT-Liver mets and increasing pancreatic mass Has an appointment with his Oncologist as an OP . DVT proph-Heparin Full Code Dispo-to telemetry Vital Signs: Date Time Temp Pulse Resp B/P (MAP) Pulse Ox O2 Delivery O2 Flow Rate FiO2 01/08/17 16:00 Nasal Cannula 2.0 01/08/17 15:24 36.7 82 20 130/68 (88) 99 Nasal Cannula 2.0 01/08/17 12:32 36.6 75 22 123/66 (85) 99 Nasal Cannula 2.0 01/08/17 11:50 Nasal Cannula 2.0 01/08/17 07:30 Nasal Cannula 2.0 01/08/17 07:11 36.6 85 20 119/63 (81) 93 Nasal Cannula 2.0 01/08/17 04:24 36.8 79 17 137/53 (81) 98 Nasal Cannula 2.0 01/08/17 04:00 Nasal Cannula 2.0 01/08/17 00:10 37.0 90 17 122/62 (82) 92 Nasal Cannula 2.0 01/08/17 00:00 Nasal Cannula 2.0 01/07/17 20:00 Nasal Cannula 2.0 01/07/17 19:05 36.8 87 18 146/70 (95) 99 Nasal Cannula 2.0 Lab Results: Results Past 24 Hours Test 01/07/17 19:43 01/08/17 06:29 01/08/17 06:36 01/08/17 12:09 Range/Units Bedside Glucose 272 157 205 70-99 mg/dl White Blood Count 5.00 4.8-10.8 K/uL Red Blood Count 2.89 4.7-6.1 M/uL Hemoglobin 7.7 14.0-18.0 g/dL Hematocrit 22.6 42-52 % Mean Corpuscular Volume 78.2 80-100 fL Mean Corpuscular Hemoglobin 26.6 25-34 pg Mean Corpuscular Hemoglobin Concent 34.1 32-36 g/dl RDW Standard Deviation 39.2 36.4-46.3 fL RDW Coefficient of Variation 13.8 11.5-14.5 % Platelet Count 159 130-400 K/uL Mean Platelet Volume 11.3 7.4-10.4 fL Sodium Level 140 136-145 mmol/L Potassium Level 4.5 3.5-5.1 mmol/L Chloride Level 105 98-107 mmol/L Carbon Dioxide Level 25 21-32 mmol/L Anion Gap 10.0 3-11 mmol/L Blood Urea Nitrogen 63 7-18 mg/dl Creatinine 3.90 0.60-1.40 mg/dl Est Creatinine Clear Calc Drug Dose 22.5 ml/min Estimated GFR () 17.1 Estimated GFR (Non- 14.8 BUN/Creatinine Ratio 16.2 10-20 Random Glucose 138 70-99 mg/dl Calcium Level 8.0 8.5-10.1 mg/dl Phosphorus Level 5.1 2.5-4.9 mg/dl Magnesium Level 1.9 1.8-2.4 mg/dl Test 01/08/17 16:23 Range/Units Bedside Glucose 193 70-99 mg/dl
--- NOTE | 2017-01-08 17:14 | Nephrology Progress Note ---
Nephrology Progress Note Date of Service: Jan 08, 2017. Subjective dyspnea better though still on 02nc; feels edema improved to; for DSE today (pt seen on rounds 10 am) Objective Date Time Temp Pulse Resp B/P (MAP) Pulse Ox O2 Delivery O2 Flow Rate FiO2 01/08/17 16:00 Nasal Cannula 2.0 01/08/17 15:24 36.7 82 20 130/68 (88) 99 Nasal Cannula 2.0 01/08/17 12:32 36.6 75 22 123/66 (85) 99 Nasal Cannula 2.0 01/08/17 11:50 Nasal Cannula 2.0 01/08/17 07:30 Nasal Cannula 2.0 01/08/17 07:11 36.6 85 20 119/63 (81) 93 Nasal Cannula 2.0 01/08/17 04:24 36.8 79 17 137/53 (81) 98 Nasal Cannula 2.0 01/08/17 04:00 Nasal Cannula 2.0 01/08/17 00:10 37.0 90 17 122/62 (82) 92 Nasal Cannula 2.0 01/08/17 00:00 Nasal Cannula 2.0 01/07/17 20:00 Nasal Cannula 2.0 01/07/17 19:05 36.8 87 18 146/70 (95) 99 Nasal Cannula 2.0 Physical Exam: GENERAL: Elderly white male nad on 02nc in w/ HEAD, EYES, EARS, NOSE, AND THROAT: Mucous membranes moist. NECK: Supple. CARDIOVASCULAR: Regular, normal S1 and S2. No murmur, rubs. PULMONARY: diminished BS throughout but clear ABDOMEN: Soft, nontender, obesity. no fox EXTREMITIES: trace BL edema; maturing AVF L a-c SKIN: Warm and dry with chronic venous stasis changes. Current Inpatient Medications Medications (Trade) Dose Ordered Sig/Adán Route Start Time Stop Time Status Last Admin Dose Admin Furosemide 40 mg/ Syringe 4 ml @ 4 mls/min BID17 IV 01/06/17 09:00 02/05/17 08:59 01/08/17 08:19 4 MLS/MIN Acetaminophen (Tylenol Tab) 650 mg Q4H PRN PO 01/06/17 01:15 02/05/17 01:14 01/06/17 06:02 650 MG Ondansetron HCl (Zofran Inj) 4 mg Q6H PRN IV 01/06/17 01:15 02/05/17 01:14 Nitroglycerin (Nitrostat Tab) 0.4 mg UD PRN SL 01/06/17 01:15 02/05/17 01:14 Morphine Sulfate (MoRPHine SULFATE INJ) 2 mg Q30M PRN IV 01/06/17 01:15 01/20/17 01:14 Polyethylene (Miralax Powder Packet) 17 gm DAILY PRN PO 01/06/17 01:15 02/05/17 01:14 Insulin Glargine (Lantus Solostar Pen) 10 units Q12 SC 01/06/17 09:00 02/05/17 08:59 01/08/17 08:17 10 UNITS Insulin Aspart (novoLOG ASPART) SLIDING SCALE If C... ACHS SC 01/06/17 07:00 02/05/17 06:59 01/08/17 12:57 3 UNITS Glucose (Glucose 40% Gel) 15-30 GRAMS 15 GRAMS... UD PRN PO 01/06/17 01:30 02/05/17 01:29 Glucose (Glucose Chew Tab) 4-8 Tablets 4 Tabl... UD PRN PO 01/06/17 01:30 02/05/17 01:29 Dextrose (Dextrose 50% 50ML Syringe) 25-50ML OF 50% DW IV FOR... UD PRN IV 01/06/17 01:30 02/05/17 01:29 Glucagon (Glucagon Inj) 1 mg UD PRN SQ 01/06/17 01:30 02/05/17 01:29 Albuterol/ Ipratropium (Duoneb) 3 ml QIDR PRN INH 01/06/17 01:30 02/05/17 01:29 Amlodipine Besylate (Norvasc Tab) 2.5 mg QAM PO 01/06/17 09:00 02/05/17 08:59 01/08/17 12:15 2.5 MG Calcitriol (Rocaltrol Cap) 0.25 mcg QAM PO 01/06/17 09:00 02/05/17 08:59 01/08/17 12:15 0.25 MCG Citalopram Hydrobromide (celeXA TAB) 40 mg DAILY PO 01/06/17 09:00 02/05/17 08:59 01/08/17 12:13 40 MG Salmeterol Xinafoate/ Fluticasone (Advair Diskus 250/50 Inh) 1 puff DAILY INH 01/06/17 09:00 02/05/17 08:59 01/08/17 08:11 1 PUFF Gabapentin (Neurontin Cap) 400 mg BID PO 01/06/17 09:00 02/05/17 08:59 01/08/17 12:14 400 MG Albuterol/ Ipratropium (Combivent Respimat Inh) 1 puffs QID INH 01/06/17 09:00 02/05/17 08:59 01/08/17 12:58 1 PUFFS Ranitidine HCl (zANTac TAB) 150 mg QPM PO 01/06/17 21:00 02/05/17 20:59 01/07/17 20:56 150 MG Simvastatin (Zocor Tab) 20 mg QPM PO 01/06/17 21:00 02/05/17 20:59 01/07/17 20:56 20 MG Albuterol (Ventolin Hfa Inhaler) 2 puffs Q4 PRN INH 01/06/17 01:45 02/05/17 01:44 Sevelamer HCl (Renagel Tab) 800 mg TIDM PO 01/06/17 07:30 02/05/17 07:29 01/08/17 12:48 800 MG Everolimus (Afinitor) 10 mg DAILY PO 01/07/17 09:00 02/06/17 08:59 01/08/17 09:00 10 MG Heparin Sodium (Porcine) (Heparin Sq 5000 Unit/0.5ml) 5,000 unit Q8 SQ 01/07/17 06:00 02/06/17 05:59 01/08/17 13:36 5,000 UNIT Aspirin (Ecotrin Tab) 81 mg QAM PO 01/09/17 09:00 02/08/17 08:59 Last 24 Hours Test 01/07/17 19:43 01/08/17 06:29 01/08/17 06:36 01/08/17 12:09 Bedside Glucose 272 mg/dl 157 mg/dl 205 mg/dl White Blood Count 5.00 K/uL Red Blood Count 2.89 M/uL Hemoglobin 7.7 g/dL Hematocrit 22.6 % Mean Corpuscular Volume 78.2 fL Mean Corpuscular Hemoglobin 26.6 pg Mean Corpuscular Hemoglobin Concent 34.1 g/dl RDW Standard Deviation 39.2 fL RDW Coefficient of Variation 13.8 % Platelet Count 159 K/uL Mean Platelet Volume 11.3 fL Sodium Level 140 mmol/L Potassium Level 4.5 mmol/L Chloride Level 105 mmol/L Carbon Dioxide Level 25 mmol/L Anion Gap 10.0 mmol/L Blood Urea Nitrogen 63 mg/dl Creatinine 3.90 mg/dl Est Creatinine Clear Calc Drug Dose 22.5 ml/min Estimated GFR () 17.1 Estimated GFR (Non- 14.8 BUN/Creatinine Ratio 16.2 Random Glucose 138 mg/dl Calcium Level 8.0 mg/dl Phosphorus Level 5.1 mg/dl Magnesium Level 1.9 mg/dl Test 01/08/17 16:23 Bedside Glucose 193 mg/dl Assessment & Plan 71-year-old male w/ CKD stage IV/v s/p recent AVF creation and recently started on epo as outpt presenting with about a week history of increasing shortness of breath. Cardiology has followed pt closely and is satisfied no active cardiac issue. No firm evidence of metastatic CA or PE playing a role in dyspnea. -replace outpt lasix (he often forgets second dose and is on relatively low dose twice daily) with torsemide 60 mg daily -no need for K supplementation as K often high normal already -recheck bmp pls at pcp f/u -cont anemia clinic care/ epo >> their next eval is 01/16; pt recently had course of IV iron -will give dose of epo today 4000 units SQ -low sodium diet -close to needing dialysis and I will cont to follow closely per prior plan / previously planned appt in [facility] 03/08 appt, sooner as needed Appreciate consult; will follow with you. Care coordinated w/ Dr. Aburto.
[2017-01-08] MEDS ORDERED: EPOETIN ALFA 4000 UNITS/ML VIAL SQ SCH (17:15)
[2017-01-08] MEDS ORDERED: EPOETIN ALFA 4000 UNITS/ML VIAL SQ STA (17:15)
[2017-01-08] MEDS ORDERED: ASPEC81 PO (17:44)
[2017-01-08] MEDS ORDERED: DMD20 PO (17:44)
--- NOTE | 2017-01-08 17:49 | Discharge Instructions ---
Discharge Instructions Date of Service Jan 08, 2017. Admission Reason for Admission: Chf Exacerbation Discharge Discharge Diagnosis / Problem: Acute SOB ,Diastolic CHF,Fluid Overload,CKD Discharge Goals Goal(s): Prevent Disease Progression Activity Recommendations Activity Limitations: resume your previous activity . Instructions / Follow-Up Instructions / Follow-Up Dr Perkins on 01/12/17 at 10:15 AM. Check PRP am]nd Mag and report to Dr Clancy.Keep appointment with your Oncologist Current Hospital Diet Patient's current hospital diet: Low Sodium Diet (2gm Na), Diabetes Type 2 Diet Discharge Diet Recommended Diet: Low Sodium Diet (2gm Na), Diabetes Type 2 Diet Fluid Restriction: 1500 ml (6 cups) Pending Studies Studies pending at discharge: no Laboratory Results Hemoglobin A1c Test 01/06/17 07:00 Range/Units Estimated Average Glucose 154 mg/dl Hemoglobin A1c 7.0 H 4.5-5.6 % Lipid Panel Test 01/06/17 07:00 Range/Units Triglycerides Level 213 H 0-150 mg/dl Cholesterol Level 116 0-200 mg/dl HDL Cholesterol 36 mg/dl Cholesterol/HDL Ratio 3.2 LDL Cholesterol, Calculated 37 mg/dl Medical Emergencies . Who to Call and When: Medical Emergencies: If at any time you feel your situation is an emergency, please call 911 immediately. . Non-Emergent Contact Non-Emergency issues call your: Primary Care Provider . Past History Medical & Surgical History: (1) Diabetes (2) Hypertension (3) Pancreas cancer (4) Asthma (5) Encephalopathy (6) Right rib fracture (7) SOB (shortness of breath) (8) CHF (congestive heart failure) (9) Renal insufficiency (10) CHF exacerbation (11) H/O cervical spine surgery (12) S/P foot surgery (13) S/P knee surgery (14) S/P lumbar spine operation . "Provider Documentation" section prepared by Dillon Aburto. . VTE Core Measure Inpt VTE Proph given/why not?: Unfractionated heparin SQ
[2017-01-08 18:15] VITALS: BP 130/68; PULSE 82; TEMP 36.7; O2SAT 99
[2017-01-09] MEDS ORDERED: ASPIRIN 81 MG ECTAB PO SCH (09:00)
--- NOTE | 2017-01-09 14:45 | Discharge Summary ---
Discharge Summary Date of Service Jan 09, 2017. Discharge Summary Admission Date: Jan 05, 2017 at 23:04 Discharge Date: Jan 08, 2017 Discharge Disposition: Home Principal Diagnosis: Acute SOB ,Diastolic CHF,Fluid Overload,CKD Secondary Diagnoses/Problems: Please see H&P and Hospital Progress note Consultations: Cardiology and Nephrology Medication Reconciliation New Medications: Torsemide (Torsemide) 20 Mg Tab 60 MG PO DAILY, #30 Aspirin (Aspirin EC Low Dose) 81 Mg Ectab 81 MG PO QAM for 30 Days, #30 Continued Medications: Acetaminophen (Tylenol) 325 Mg Tab 650 MG PO Q4H PRN for MILD PAIN, TAB Albuterol Sulfate (Proair Respiclick) 108 Mcg/Act Aer 2 PUFFS INH Q4 PRN for Wheezing Amlodipine (Norvasc) 2.5 Mg Tab 2.5 MG PO QAM, TAB Calcitriol (Rocaltrol Cap) 0.25 Mcg Cap 0.25 MCG PO QAM, CAP Citalopram (Citalopram Hydrobromide) 40 Mg Tab 40 MG PO DAILY for 90 Days, #90 TAB 3 Refills Ergocalciferol (Vitamin D 26525 Unit) 50,000 Unit Cap 1 TAB PO [id number], CAP EVERY OTHER SUNDAY Everolimus (Afinitor) 10 Mg Tab 10 MG PO QAM Fluticasone Prop/Salmeterol (Advair Diskus 250/50 60 Dose) 1 Ea Aerp 1 PUFF INH DAILY, INHALER Gabapentin (Neurontin) 400 Mg Cap 400 MG PO BID, CAP Glucagon (Glucagon Emergency Kit) 1 Mg Kit 1 MG SC UD PRN for HYPOGLYCEMIA PROTOCOL Insulin Glargine (Lantus Solostar) 100 Unit/Ml Inj 55 UNITS SC QAM, PEN Insulin Lispro (Human) (Humalog Kwikpen) 100 Unit/Ml Inj 1 DOSE SC UD TAKE 18-40 UNITS DEPENDING ON BS THREE TIMES DAILY WITH MEALS. BASED ON SLIDING SCALE Ipratropium-Albuterol (Combivent Respimat) 1 Aer Aer 1 PUFFS INH QID, INH Meclizine HCl (Meclizine 25) 25 Mg Tab 25 MG PO TID PRN for Dizziness or Vertigo Ranitidine Hcl (Zantac) 150 Mg Tab 150 MG PO QPM, TAB Sevelamer Carbonate (Renvela) 800 Mg Tab 800 MG PO TIDM for 90 Days, TAB 3 Refills Simvastatin (Zocor) 20 Mg Tab 20 MG PO QPM, TAB [Octreotide] () 1 DOSE INJ [id number] Discontinued Medications: Furosemide (Lasix) 40 Mg Tab 40 MG PO BID, TAB TAKE 40MG TWICE A DAY AT LEAST 4-6 HOURS APART OR DIRECTED Admission Information HPI (per Admitting provider): 71 o M with pancreatic cancer and no h/o CAD presents with intermittent exertional chest pain and increased shortness of breath for the past 4-5 days. He had a fistula placed in his LUE last week and states that his post-op recovery went very well. He denies any pain in his calves or legs. He admits to a h/o asthma and was seen at his PCP's office in [place] who sent him home but then called and told him to go to the ER out of concern for a possible pneumothorax. On arrival to the ER, a repeat CXR was negative for a PTX but with his description of progressive worsening of dyspnea and chest pain, he was admitted for further workup/treatment. He does take Lasix and is not on home oxygen but is apparently requiring 2L via nasal canula in the ER. There is no respiratory distress present. His chest pain is described as being in his R anterior chest radiating up around his R shoulder and into his shoulder blade. He reports that exertion makes this worse, and there are no associated symptoms. He also denies any cough, fevers, chills, recent trauma to his shoulder. He states the chest pain lasts approx 5-15 minutes, is intermittent, and is relieved by rest. He denies having a heart history or chest pain issues in the past. He does report chronic shortness of breath but not to this extent. He does report recent wheezing at home for which he used his rescue inhaler with some improvement in breathing but only temporarily. He is not currently wheezing on exam and CXR appears clear of any acute congestion, however, CT chest without contrast reveals small bilateral pleural effusions with dependent atelectasis, ?atypical infectious appearing nodule in the RLL, chronic postinfectious/postinflammatory changes in the lingula, suspicious new ? metastatic lesion in the liver and a known solid pancreatic neoplasm that appears to have enlarged. Past Medical/Surgical History Medical Problems: (1) Anemia Status: Chronic (2) Asthma Status: Chronic (3) Diabetes Status: Chronic (4) Hypertension Status: Chronic (5) Liver cancer Status: Chronic (6) Pancreas cancer Status: Chronic (7) Right rib fracture Status: Resolved (8) Stenosis of cervical spine Status: Resolved (9) Traumatic joint effusion Status: Resolved Surgical Problems: (1) H/O cervical spine surgery Status: Resolved (2) S/P foot surgery Status: Chronic (3) S/P knee surgery Status: Chronic (4) S/P lumbar spine operation Status: Chronic Family History Cancer Diabetes mellitus Heart disease Hypertension Lung disease Social History Smoking Status: Former Smoker Smokeless Tobacco Use: Unknown Alcohol Use: none Drug Use: none Marital Status: Housing status: lives with significant other Occupational Status: retired Immunizations History of Influenza Vaccine: Yes Influenza Vaccine Date: Jan 01, 2016 History of Tetanus Vaccine?: Yes Tetanus Immunization Date: Oct 06, 2008 History of Pneumococcal: No History of Hepatitis B Vaccine: No Multi-Drug Resistant Organisms History of MDRO: No Allergies Coded Allergies: Sulfa Antibiotics (Verified Allergy, Mild, RASH, 01/05/17) NSAIDs (Unverified Allergy, Unknown, "NO NSAIDS"due to kidney disease, 01/05/17) Home Medications Scheduled Amlodipine (Norvasc), 2.5 MG PO QAM Calcitriol (Rocaltrol Cap), 0.25 MCG PO QAM Citalopram (Citalopram Hydrobromide), 40 MG PO DAILY Ergocalciferol (Vitamin D 54513 Unit), 1 TAB PO [id number] Everolimus (Afinitor), 10 MG PO QAM Fluticasone Prop/Salmeterol (Advair Diskus 250/50 60 Dose), 1 PUFF INH DAILY Furosemide (Lasix), 40 MG PO BID Gabapentin (Neurontin), 400 MG PO BID Insulin Glargine (Lantus Solostar), 55 UNITS SC QAM Insulin Lispro (Human) (Humalog Kwikpen), 1 DOSE SC UD Ipratropium-Albuterol (Combivent Respimat), 1 PUFFS INH QID Ranitidine Hcl (Zantac), 150 MG PO QPM Sevelamer Carbonate (Renvela), 800 MG PO TIDM Simvastatin (Zocor), 20 MG PO QPM [Octreotide], 1 DOSE INJ [id number] Scheduled PRN Acetaminophen (Tylenol), 650 MG PO Q4H PRN for MILD PAIN Albuterol Sulfate (Proair Respiclick), 2 PUFFS INH Q4 PRN for Wheezing Glucagon (Glucagon Emergency Kit), 1 MG SC UD PRN for HYPOGLYCEMIA PROTOCOL Meclizine HCl (Meclizine 25), 25 MG PO TID PRN for Dizziness or Vertigo Review of Systems At least ten systems were reviewed and negative except as indicated in HPI Physical Ex - H&P Physical Exam Vital Signs Date Time Temp Pulse Resp B/P (MAP) Pulse Ox O2 Delivery O2 Flow Rate FiO2 01/06/17 01:00 Nasal Cannula 2.0 01/06/17 00:42 36.9 98 20 162/81 97 Nasal Cannula 2.0 01/05/17 23:37 90 18 158/74 98 Room Air 01/05/17 23:10 93 01/05/17 21:31 93 18 160/83 98 Room Air 01/05/17 20:48 88 20 156/77 98 Nasal Cannula 2.0 01/05/17 19:43 85 18 144/72 100 Nasal Cannula 2.0 01/05/17 19:16 88 01/05/17 19:09 99 2.0 01/05/17 19:09 99 Nasal Cannula 2.0 01/05/17 18:00 95 Room Air 01/05/17 18:00 36.8 87 24 130/63 96 Room Air General Appearance: WD/WN, no apparent distress, + pertinent finding (NC in place, no tachypnea or conversational dyspnea. ) Head: normocephalic, atraumatic Eyes: normal inspection, sclerae normal ENT: hearing grossly normal, pharynx normal Neck: supple, trachea midline Respiratory/Chest: chest non-tender, lungs clear, normal breath sounds, no respiratory distress, no accessory muscle use Cardiovascular: regular rate, rhythm, no edema, no gallop, no JVD, no murmur, normal peripheral pulses, + pertinent finding (palpable thrill in LUE) Abdomen/GI: normal bowel sounds, non tender, soft Back: normal inspection, no CVA tenderness Extremities/Musculoskelatal: normal inspection, no calf tenderness, no pedal edema, normal range of motion Neurologic/Psych: no motor/sensory deficits, alert, normal mood/affect, oriented x 3 Skin: normal color, warm/dry, no rash Diagnostics - H&P Diagnostics Laboratory Results 01/05/17 19:00 Red Blood Count 3.08, Mean Corpuscular Volume 79.5, Mean Corpuscular Hemoglobin 26.0, Mean Corpuscular Hemoglobin Concent 32.7, Mean Platelet Volume 11.6, Neutrophils (%) (Auto) 58.6, Lymphocytes (%) (Auto) 27.1, Monocytes (%) (Auto) 9.1, Eosinophils (%) (Auto) 3.7, Basophils (%) (Auto) 1.2, Neutrophils # (Auto) 3.53, Lymphocytes # (Auto) 1.63, Monocytes # (Auto) 0.55, Eosinophils # (Auto) 0.22, Basophils # (Auto) 0.07 01/05/17 19:00 Test 01/05/17 19:00 01/05/17 19:51 01/06/17 01:23 01/06/17 06:48 White Blood Count 6.02 K/uL (4.8-10.8) Red Blood Count 3.08 M/uL (4.7-6.1) Hemoglobin 8.0 g/dL (14.0-18.0) Hematocrit 24.5 % (42-52) Mean Corpuscular Volume 79.5 fL (80-100) Mean Corpuscular Hemoglobin 26.0 pg (25-34) Mean Corpuscular Hemoglobin Concent 32.7 g/dl (32-36) Platelet Count 168 K/uL (130-400) Mean Platelet Volume 11.6 fL (7.4-10.4) Neutrophils (%) (Auto) 58.6 % Lymphocytes (%) (Auto) 27.1 % Monocytes (%) (Auto) 9.1 % Eosinophils (%) (Auto) 3.7 % Basophils (%) (Auto) 1.2 % Neutrophils # (Auto) 3.53 K/uL (1.4-6.5) Lymphocytes # (Auto) 1.63 K/uL (1.2-3.4) Monocytes # (Auto) 0.55 K/uL (0.11-0.59) Eosinophils # (Auto) 0.22 K/uL (0-0.5) Basophils # (Auto) 0.07 K/uL (0-0.2) RDW Standard Deviation 40.9 fL (36.4-46.3) RDW Coefficient of Variation 14.2 % (11.5-14.5) Immature Granulocyte % (Auto) 0.3 % Immature Granulocyte # (Auto) 0.02 K/uL (0.00-0.02) Tear Drop Cells 1+ Prothrombin Time 11.0 SECONDS (9.0-12.0) Prothromb Time International Ratio 1.0 (0.9-1.1) Activated Partial Thromboplast Time 28.5 SECONDS (21.0-31.0) Partial Thromboplastin Ratio 1.1 Anion Gap 10.0 mmol/L (3-11) Est Creatinine Clear Calc Drug Dose 26.0 ml/min Estimated GFR () 20.2 Estimated GFR (Non- 17.4 BUN/Creatinine Ratio 15.3 (10-20) Calcium Level 8.2 mg/dl (8.5-10.1) Total Bilirubin < 0.1 mg/dl (0.2-1) Aspartate Amino Transf (AST/SGOT) 29 U/L (15-37) Alanine Aminotransferase (ALT/SGPT) 20 U/L (12-78) Alkaline Phosphatase 116 U/L (45-117) Pro-B-Type Natriuretic Peptide 5366 pg/ml (0-900) Total Protein 7.1 gm/dl (6.4-8.2) Albumin 3.1 gm/dl (3.4-5.0) Globulin 4.0 gm/dl (2.5-4.0) Albumin/Globulin Ratio 0.8 (0.9-2) Chemistry Specimen Hemolysis Urine Color DK YELLOW Urine Appearance CLOUDY (CLEAR) Urine pH 5.0 (4.5-7.5) Urine Specific Balfour 1.040 (1.000-1.030) Urine Protein 1+ (NEG) Urine Glucose (UA) NEG (NEG) Urine Ketones NEG (NEG) Urine Occult Blood NEG (NEG) Urine Nitrite NEG (NEG) Urine Bilirubin NEG (NEG) Urine Urobilinogen NEG (NEG) Urine Leukocyte Esterase NEG (NEG) Urine WBC (Auto) 1-5 /hpf (0-5) Urine RBC (Auto) 0-4 /hpf (0-4) Urine Hyaline Casts (Auto) 10-30 /lpf (0-5) Urine Epithelial Cells (Auto) 10-20 /lpf (0-5) Urine Bacteria (Auto) NEG (NEG) Urine Pathogenic Casts 5-10 GRANULAR CASTS /lpf (0) Urine Yeast (Auto) (NONE PRSENT) Hepatitis C Antibody NEG (NEG) Bedside Glucose 123 mg/dl (70-99) Test 01/06/17 07:00 Estimated Average Glucose 154 mg/dl Hemoglobin A1c 7.0 % (4.5-5.6) Total Creatine Kinase 88 U/L (39-308) Creatine Kinase MB 0.8 ng/ml (0.5-3.6) Creatine Kinase MB Ratio 0.9 (0-3.0) Troponin I 0.029 ng/ml (0-0.045) Triglycerides Level 213 mg/dl (0-150) Cholesterol Level 116 mg/dl (0-200) HDL Cholesterol 36 mg/dl LDL Cholesterol, Calculated 37 mg/dl VLDL Cholesterol, Calculated 43 mg/dl Cholesterol/HDL Ratio 3.2 Results Past 24 Hours Test 01/05/17 19:00 01/05/17 19:51 01/05/17 20:48 01/05/17 21:16 Range/Units White Blood Count 6.02 4.8-10.8 K/uL Red Blood Count 3.08 4.7-6.1 M/uL Hemoglobin 8.0 14.0-18.0 g/dL Hematocrit 24.5 42-52 % Mean Corpuscular Volume 79.5 80-100 fL Mean Corpuscular Hemoglobin 26.0 25-34 pg Mean Corpuscular Hemoglobin Concent 32.7 32-36 g/dl Platelet Count 168 130-400 K/uL Mean Platelet Volume 11.6 7.4-10.4 fL Neutrophils (%) (Auto) 58.6 % Lymphocytes (%) (Auto) 27.1 % Monocytes (%) (Auto) 9.1 % Eosinophils (%) (Auto) 3.7 % Basophils (%) (Auto) 1.2 % Neutrophils # (Auto) 3.53 1.4-6.5 K/uL Lymphocytes # (Auto) 1.63 1.2-3.4 K/uL Monocytes # (Auto) 0.55 0.11-0.59 K/uL Eosinophils # (Auto) 0.22 0-0.5 K/uL Basophils # (Auto) 0.07 0-0.2 K/uL RDW Standard Deviation 40.9 36.4-46.3 fL RDW Coefficient of Variation 14.2 11.5-14.5 % Immature Granulocyte % (Auto) 0.3 % Immature Granulocyte # (Auto) 0.02 0.00-0.02 K/uL Tear Drop Cells 1+ Prothrombin Time 11.0 9.0-12.0 SECONDS Prothromb Time International Ratio 1.0 0.9-1.1 Activated Partial Thromboplast Time 28.5 21.0-31.0 SECONDS Partial Thromboplastin Ratio 1.1 Sodium Level 141 136-145 mmol/L Potassium Level 4.4 3.5-5.1 mmol/L Chloride Level 109 98-107 mmol/L Carbon Dioxide Level 23 21-32 mmol/L Anion Gap 10.0 3-11 mmol/L Blood Urea Nitrogen 52 7-18 mg/dl Creatinine 3.40 0.60-1.40 mg/dl Est Creatinine Clear Calc Drug Dose 26.0 ml/min Estimated GFR () 20.2 Estimated GFR (Non- 17.4 BUN/Creatinine Ratio 15.3 10-20 Random Glucose 60 70-99 mg/dl Calcium Level 8.2 8.5-10.1 mg/dl Total Bilirubin < 0.1 0.2-1 mg/dl Aspartate Amino Transf (AST/SGOT) 29 15-37 U/L Alanine Aminotransferase (ALT/SGPT) 20 12-78 U/L Alkaline Phosphatase 116 45-117 U/L Total Creatine Kinase 110 39-308 U/L Creatine Kinase MB 1.2 0.5-3.6 ng/ml Creatine Kinase MB Ratio 1.1 0-3.0 Troponin I 0.023 0-0.045 ng/ml Pro-B-Type Natriuretic Peptide 5366 0-900 pg/ml Total Protein 7.1 6.4-8.2 gm/dl Albumin 3.1 3.4-5.0 gm/dl Globulin 4.0 2.5-4.0 gm/dl Albumin/Globulin Ratio 0.8 0.9-2 Chemistry Specimen Hemolysis Urine Color DK YELLOW Urine Appearance CLOUDY CLEAR Urine pH 5.0 4.5-7.5 Urine Specific Balfour 1.040 1.000-1.030 Urine Protein 1+ NEG Urine Glucose (UA) NEG NEG Urine Ketones NEG NEG Urine Occult Blood NEG NEG Urine Nitrite NEG NEG Urine Bilirubin NEG NEG Urine Urobilinogen NEG NEG Urine Leukocyte Esterase NEG NEG Urine WBC (Auto) 1-5 0-5 /hpf Urine RBC (Auto) 0-4 0-4 /hpf Urine Hyaline Casts (Auto) 10-30 0-5 /lpf Urine Epithelial Cells (Auto) 10-20 0-5 /lpf Urine Bacteria (Auto) NEG NEG Urine Pathogenic Casts 5-10 GRANULAR CASTS 0 /lpf Urine Yeast (Auto) NONE PRSENT Bedside Glucose 42 99 70-99 mg/dl Test 01/06/17 01:04 01/06/17 01:20 01/06/17 01:23 Range/Units Creatine Kinase MB Ratio 0-3.0 Diagnostic Radiology (CHEST) THORAX WITHOUT CLINICAL HISTORY: 71 years-old Male presenting with SOB, CRI. outpt xrayr questioned pneumo. TECHNIQUE: Multidetector CT imaging of the chest was performed without the use of intravenous contrast. IV contrast: None. A dose lowering technique was used consistent with the principles of ALARA (as low as reasonably achievable). COMPARISON: 04/05/2012. CT DOSE (mGy.cm): The estimated cumulative dose is 589.34 mGy.cm. FINDINGS: Open End Spinning Operator topogram: Unremarkable. On soft tissue windows, bilateral gynecomastia. Few small nodules noted in the thyroid. No axillary, supraclavicular, or mediastinal lymphadenopathy. Evaluation of the radha limited without intravenous contrast. Atherosclerosis of the aorta. Mild multichamber enlargement of the heart. Intraventricular blood flow is less dense than adjacent myocardium suggesting anemia. Mitral annular and coronary artery calcification. Trace pericardial effusion. Small bilateral pleural effusions. Cholelithiasis. Ill-defined hypodense lesion in the right hepatic lobe (series 2 image 60), new from prior exam in 2012. Calcification along the atrophic lateral segment of the left hepatic lobe unchanged. Slight interval increased size of the solid round 3.5 cm lesion in the pancreatic tail, previously 2.5 cm. On lung windows, dependent consolidation and volume loss at the lung bases, likely passive atelectasis. Subpleural regular opacity with adjacent calcification at the site of prior consolidation, likely scarring. Focal nodularity in the superior segment of the right lower lobe (for example series 4 image 177). Minimal groundglass centrilobular opacities in the lingula suggested primarily in a subpleural distribution, likely postinfectious/postinflammatory as these changes were apparent to some degree on the prior exam. Airways patent. On bone windows, degenerative changes of the spine. Partially visualized posterior cervical fusion hardware. IMPRESSION: 1. Small bilateral pleural effusions with dependent atelectasis. 2. Minimal nodularity in the superior segment of the right lower lobe. An atypical infectious etiology cannot be excluded. 3. Chronic postinfectious/postinflammatory changes in the lingula. 4. Ill-defined hypodense lesion in the right hepatic lobe is suspicious and new from prior exam in 2013. This raises concern for a metastatic lesion. Further evaluation with dedicated contrast enhanced liver CT or MR recommended and correlation for a history of primary malignancy. 5. Interval increased size of the solid pancreatic neoplasm. This is incompletely characterized without intravenous contrast. Differential considerations include solid pseudopapillary epithelial neoplasm, serous cystadenoma, focal side branch intraductal papillary mucinous neoplasm, or acinar carcinoma. Further evaluation could be considered as clinically warranted. CHEST ONE VIEW PORTABLE CLINICAL HISTORY: 71 years-old Male presenting with EVALUATE RESPIRATORY DISTRESS.DYSPNEA. TECHNIQUE: Portable upright AP view of the chest was obtained. COMPARISON: 05/01/2015. FINDINGS: Cardiac silhouette remains enlarged. Left basilar opacity decreased from prior. Small left pleural effusion. Right lung and pleural space clear. Partial visualization of cervical fusion hardware. Degenerative changes of the spine. Upper abdomen normal. IMPRESSION: 1. Persistent although decreased left basilar opacities with a small left pleural effusion. This may represent atelectasis. 2. Cardiomegaly. No meggan pulmonary edema. EKG SR 87 Impression - H&P Impression Assessment and Plan 71 yo M with pancreatic cancer and worsening renal failure s/p fistula placement last week presents with worsening SOB and exertional chest pain x 2 weeks. 1. Dyspnea 2/2 acute CHF exacerbation-worse on exertion and noticeable in the past 2 weeks. He is currently requiring oxygen. So signs of infection are present. He has possible progression of his pancreatic cancer with a lesion in the liver suspicious for metastasis, definite worsened renal failure which sets him up for easy fluid overload and CHF. Clinically it appears he is having a heart failure exacerbation. He was started on IV Lasix BID and will adjust Lasix based on urine output. Of note PE was considered in light of recent procedure, however, seems less likely at this time without severe hypoxia or tachycardia. Would consider this if no improvement on initial therapies. Additionally, his chest pain has a reported exertional component so will trend cardiac enzymes. Echo in am. 2. CKD IV-progressively worsened renal failure s/p fistula placement last week , currently not on dialysis. Consulting Nephrology for evaluation 3. Asthma-appears stable, there is no wheezing on exam. Nebs PRN, cont home regimen. 4. Anemia-likely related to CKD and contributing to dyspnea on exertion above. 5. HTN-at goal, cont to monitor 6. Pancreatic cancer-cont maintenece Affinitor. DVT proph-Heparin Full Code Dispo-to tele[facility] Hospital[facility] Level of Care Telemetry Advanced Directives Existing Living Will: Yes Existing Power of Spa Associate: Yes Resuscitation Status FULL RESUSCITATION VTE Prophylaxis VTE Risk Assessment Done? Y/N: Yes Risk Level: Moderate Given or contraindicated: Unfractionated heparin SQ Physical Exam (per Admitting): General Appearance: WD/WN, no apparent distress, + pertinent finding (NC in place, no tachypnea or conversational dyspnea. ) Head: normocephalic, atraumatic Eyes: normal inspection, sclerae normal ENT: hearing grossly normal, pharynx normal Neck: supple, trachea midline Respiratory/Chest: chest non-tender, lungs clear, normal breath sounds, no respiratory distress, no accessory muscle use Cardiovascular: regular rate, rhythm, no edema, no gallop, no JVD, no murmur , normal peripheral pulses, + pertinent finding (palpable thrill in LUE) Abdomen/GI: normal bowel sounds, non tender, soft Back: normal inspection, no CVA tenderness Extremities/Musculoskelatal: normal inspection, no calf tenderness, no pedal edema, normal range of motion Neurologic/Psych: no motor/sensory deficits, alert, normal mood/affect, oriented x 3 Skin: normal color, warm/dry, no rash Hospital Course 71 yo M with pancreatic cancer and worsening renal failure s/p fistula placement last week presents with worsening SOB and exertional chest pain x 2 weeks. Acute SOB Likely secondary to acute Diastolic CHF : Initial ECHO;;Compared to previous study of 04/30/15: pulmonary hypertension is now present. * Normal LV chamber size with mild concentric LVH. * Normal LV systolic function, EF 55-60%. * No segmental left ventricular wall motion abnormalities are noted. * Grade I diastolic dysfunction. * Mild mitral regurgitation. * Pulmonary hypertension is present with a PASP of 49 mmHg assuming a RA pressure of 3 mmHg. Appreciate Cardiology input and recommendation Will need to r/o Pulmonary Embolism with H/O Ca pancreas So signs of infection are present. Feels a lot better with Oxygen US legs and VQ Scan-negative for any Thromboembolic disease Received 1 dose of Lovenox -discontinued Heparin as prophylaxis Likely Stress test in AM Stress ECHO:: Nonischemic dobutamine stress echocardiogram. * No arrhythmias. * Normal HR and BP response to exercise. * No symptoms reproduced. Will discharge home DHIRAJ on CKD CKD IV-progressively worsened renal failure s/p fistula placement last week, currently not on dialysis. Consulting Nephrology for evaluation Does not know how long he has had CKD Appreciate Nephrology input Creatinine is slightly worse Will have follow up with Nephrology as an OP Will discharge on Torsemide Asthma-appears stable, there is no wheezing on exam. Nebs PRN, cont home regimen. Will get 2 steps before discharge-May need Oxygen on discharge Anemia-likely related to CKD and contributing to dyspnea on exertion above. HTN-at goal, cont to monitor Pancreatic cancer-cont maintenance Afinitor CT-Liver mets and increasing pancreatic mass Has an appointment with his Oncologist as an OP . DVT proph-Heparin Full Code Dispo-to telemetry Total time spent on discharge = 35 minutes This includes examination of the patient, discharge planning, medication reconciliation, and communication with other providers. Discharge Instructions Date of Service Jan 08, 2017. Admission Reason for Admission: Chf Exacerbation Discharge Discharge Diagnosis / Problem: Acute SOB ,Diastolic CHF,Fluid Overload,CKD Discharge Goals Goal(s): Prevent Disease Progression Activity Recommendations Activity Limitations: resume your previous activity . Instructions / Follow-Up Instructions / Follow-Up Dr Perkins on 01/12/17 at 10:15 AM. Check PRP am]nd Mag and report to Dr Clancy.Keep appointment with your Oncologist Current Hospital Diet Patient's current hospital diet: Low Sodium Diet (2gm Na), Diabetes Type 2 Diet Discharge Diet Recommended Diet: Low Sodium Diet (2gm Na), Diabetes Type 2 Diet Fluid Restriction: 1500 ml (6 cups) Pending Studies Studies pending at discharge: no Laboratory Results Hemoglobin A1c Test 01/06/17 07:00 Range/Units Estimated Average Glucose 154 mg/dl Hemoglobin A1c 7.0 H 4.5-5.6 % Lipid Panel Test 01/06/17 07:00 Range/Units Triglycerides Level 213 H 0-150 mg/dl Cholesterol Level 116 0-200 mg/dl HDL Cholesterol 36 mg/dl Cholesterol/HDL Ratio 3.2 LDL Cholesterol, Calculated 37 mg/dl Medical Emergencies . Who to Call and When: Medical Emergencies: If at any time you feel your situation is an emergency, please call 911 immediately. . Non-Emergent Contact Non-Emergency issues call your: Primary Care Provider . Past History Medical & Surgical History: (1) Diabetes (2) Hypertension (3) Pancreas cancer (4) Asthma (5) Encephalopathy (6) Right rib fracture (7) SOB (shortness of breath) (8) CHF (congestive heart failure) (9) Renal insufficiency (10) CHF exacerbation (11) H/O cervical spine surgery (12) S/P foot surgery (13) S/P knee surgery (14) S/P lumbar spine operation . "Provider Documentation" section prepared by Dillon Aburto. . VTE Core Measure Inpt VTE Proph given/why not?: Unfractionated heparin SQ <Electronically signed by Dillon Aburto M.D.> Signed: 01/08/17 [id number] Additional Copies To Deedee Perkins PA-C
== END 2017-01-08 18:50 | disposition home or self-care (01) | DRG 291 ==
LOC: C.EDB 17:53 → C.2T 23:04 → ENRESERV 23:27
PROVIDERS: ADMIT Hospitalist; ATTEND Internal Medicine
DX: I13.0 Hypertensive heart and chronic kidney disease with heart failure and stage 1 through stage 4 chronic kidney disease, or unspecified chronic kidney disease (principal); I50.31 Acute diastolic (congestive) heart failure; C25.9 Malignant neoplasm of pancreas, unspecified; N18.4 Chronic kidney disease, stage 4 (severe); C78.7 Secondary malignant neoplasm of liver and intrahepatic bile duct; N17.9 Acute kidney failure, unspecified; E11.22 Type 2 diabetes mellitus with diabetic chronic kidney disease; I25.10 Atherosclerotic heart disease of native coronary artery without angina pectoris; D64.9 Anemia, unspecified; E78.5 Hyperlipidemia, unspecified; F32.9 Major depressive disorder, single episode, unspecified; J45.909 Unspecified asthma, uncomplicated; Z79.4 Long term (current) use of insulin; Z79.899 Other long term (current) drug therapy; Z87.891 Personal history of nicotine dependence; Z83.3 Family history of diabetes mellitus

== ENCOUNTER 2017-02-12 16:50 | Inpatient (IN) | payer OTHER, MEDICARE ==
[~2017-02-12] VITALS: Ht 182.9 cm; Wt 98.8 kg
[~2017-02-12 16:50] MED LIST changes: +ALBU18002 INH; +ASPEC81 PO; -CITA20TA9 PO; +CITA40TA4 PO; -CLC100 PO; +DMD20 PO; -ERGO1CAP41 PO; +ERGO500011 PO; -FRS/40 PO; -INSDGI SC; +INSDGIPEN SC; +INSU100I2 SC; +MECL-91 PO; -NVLGI SC; -OXYC1TAB3 PO
[2017-02-12] MEDS ORDERED: ACETAMINOPHEN 500 MG TAB PO STA (17:03)
--- NOTE | 2017-02-12 17:06 | EMERGENCY ROOM VISIT NOTE ---
History Report prepared by Venita: Fabienne Shannon Under the Supervision of: Dr. Abdirizak Osorio D.O. First contact with patient: 16:57 Chief Complaint: OTHER COMPLAINT Stated Complaint: KIDNEY FAILURE- PHYSICIAN REFERRED History of Present Illness The patient is a 71 year old male who presents to the Emergency Room with complaints of possible kidney failure. He complains of persistent cold symptoms for the past 6 days. He has experienced a cough, low grade fever and increased swelling in his legs. His reports they went to [facility] this past Sunday, and he was diagnosed with rhinovirus. He showed no improvement, so they went back to the ED yesterday and he had blood work drawn. Today his symptoms worsened, so his called his Bicycle Rental Clerk, Dr. Maribel Dawn with [facility], and states they were referred here to the ED. The patient has a history of kidney failure but is not on dialysis yet. He still makes urine. He admits he was a smoker, but quit over 40 years ago. He used to take hypertension medication until last week when his doctors in the hospital stopped it. The patient last ate around 1330 today. He denies any recent chest pain, nausea or vomiting. 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 A total of 10 systems reviewed and were otherwise negative. Past Medical & Surgical Medical Problems: (1) Anemia (2) Asthma (3) CHF exacerbation (4) Diabetes (5) Encephalopathy (6) Hypertension (7) Left knee pain (8) Liver cancer (9) Pancreas cancer (10) Right rib fracture (11) Stenosis of cervical spine (12) Traumatic joint effusion Surgical Problems: (1) H/O cervical spine surgery (2) S/P foot surgery (3) S/P knee surgery (4) S/P lumbar spine operation Family History Cancer Diabetes mellitus Heart disease Hypertension Lung disease Social History Smoking Status: Never Smoker Alcohol Use: none Drug Use: none Marital Status: Housing Status: lives with significant other Occupation Status: retired Current/Historical Medications Scheduled Amlodipine (Norvasc), 2.5 MG PO QAM Aspirin (Aspirin EC Low Dose), 81 MG PO QAM Calcitriol (Rocaltrol Cap), 0.25 MCG PO QAM Citalopram (Citalopram Hydrobromide), 40 MG PO DAILY Ergocalciferol (Vitamin D 03803 Unit), 1 TAB PO [id number] Everolimus (Afinitor), 10 MG PO QAM Fluticasone Prop/Salmeterol (Advair Diskus 250/50 60 Dose), 1 PUFF INH DAILY Gabapentin (Neurontin), 400 MG PO BID Insulin Glargine (Lantus Solostar), 55 UNITS SC QAM Insulin Lispro (Human) (Humalog Kwikpen), 1 DOSE SC UD Ipratropium-Albuterol (Combivent Respimat), 1 PUFFS INH QID Ranitidine Hcl (Zantac), 150 MG PO QPM Sevelamer Carbonate (Renvela), 800 MG PO TIDM Simvastatin (Zocor), 20 MG PO QPM Torsemide (Torsemide), 60 MG PO DAILY [Octreotide], 1 DOSE INJ [id number] Scheduled PRN Acetaminophen (Tylenol), 650 MG PO Q4H PRN for MILD PAIN Albuterol Sulfate (Proair Respiclick), 2 PUFFS INH Q4 PRN for Wheezing Glucagon (Glucagon Emergency Kit), 1 MG SC UD PRN for HYPOGLYCEMIA PROTOCOL Meclizine HCl (Meclizine 25), 25 MG PO TID PRN for Dizziness or Vertigo Allergies Coded Allergies: Sulfa Antibiotics (Verified Allergy, Mild, RASH, 01/05/17) NSAIDs (Unverified Allergy, Unknown, "NO NSAIDS"due to kidney disease, 01/05/17) Physical Exam Vital Signs Date Time Temp Pulse Resp B/P (MAP) Pulse Ox O2 Delivery O2 Flow Rate FiO2 02/12/17 21:51 84 02/12/17 20:40 82 20 170/81 95 Room Air 02/12/17 18:23 80 18 154/81 98 Room Air 02/12/17 17:53 80 02/12/17 17:46 96 Room Air 02/12/17 16:53 37.2 88 22 151/82 96 Room Air Physical Exam GENERAL: Patient is awake, alert, in no acute distress, patient is resting comfortably and showing no signs of anxiety EYES: The conjunctivae are clear. The pupils are round and reactive. EARS, NOSE, MOUTH AND THROAT: The nose is without any evidence of any deformity. Mucous membranes are moist tongue is midline NECK: The neck is nontender and supple. RESPIRATORY: Normal respiratory effort is noted there is no evidence of wheezing rhonchi or rales CARDIOVASCULAR: Regular rate and rhythm noted there no murmurs rubs or gallops normal S1 normal S2 GASTROINTESTINAL: The abdomen is mildly distended but soft, no tenderness, guarding or rigidity noted. BACK: No midline tenderness or or step-off noted range of motion in flexion extension as well as rotation no signs of muscle spasm noted MUSCULOSKELETAL/EXTREMITIES: There is no evidence of gross deformity full range of motion is noted in the hips and shoulders SKIN: Pedal edema bilaterally. There is no obvious evidence of any rash. There are no petechiae, pallor or cyanosis noted. NEUROLOGIC: Patient is awake alert and oriented x3 Medical Decision & Procedures ER Provider Diagnostic Interpretation: Radiology results as stated below per my review and radiologist interpretation: CHEST ONE VIEW PORTABLE CLINICAL HISTORY: Sepsis. COMPARISON STUDY: Chest CT T and chest radiograph January 05, 2017. FINDINGS: Posterior cervical spine fusion is incidentally noted. No pneumothorax or pleural effusion is present. Mild left basilar opacity favors atelectasis or epicardial fat pad. Prominent vascularity is normal. Cardiomediastinal silhouette is stable. IMPRESSION: No acute cardiopulmonary findings. Electronically signed by: Dave Weeks M.D. 02/12/2017 5:25 PM Laboratory Results 02/12/17 17:35 Red Blood Count 3.47, Mean Corpuscular Volume 78.7, Mean Corpuscular Hemoglobin 26.2, Mean Corpuscular Hemoglobin Concent 33.3, Mean Platelet Volume 12.0, Neutrophils (%) (Auto) 52.3, Lymphocytes (%) (Auto) 27.5, Monocytes (%) (Auto) 16.8, Eosinophils (%) (Auto) 2.1, Basophils (%) (Auto) 0.4, Neutrophils # (Auto ) 5.03, Lymphocytes # (Auto) 2.64, Monocytes # (Auto) 1.61, Eosinophils # (Auto ) 0.20, Basophils # (Auto) 0.04 02/12/17 17:35 Test 02/12/17 17:35 02/12/17 17:38 02/12/17 20:02/12/17 20:32 White Blood Count 9.61 K/uL (4.8-10.8) Red Blood Count 3.47 M/uL (4.7-6.1) Hemoglobin 9.1 g/dL (14.0-18.0) Hematocrit 27.3 % (42-52) Mean Corpuscular Volume 78.7 fL (80-100) Mean Corpuscular Hemoglobin 26.2 pg (25-34) Mean Corpuscular Hemoglobin Concent 33.3 g/dl (32-36) Platelet Count 275 K/uL (130-400) Mean Platelet Volume 12.0 fL (7.4-10.4) Neutrophils (%) (Auto) 52.3 % Lymphocytes (%) (Auto) 27.5 % Monocytes (%) (Auto) 16.8 % Eosinophils (%) (Auto) 2.1 % Basophils (%) (Auto) 0.4 % Neutrophils # (Auto) 5.03 K/uL (1.4-6.5) Lymphocytes # (Auto) 2.64 K/uL (1.2-3.4) Monocytes # (Auto) 1.61 K/uL (0.11-0.59) Eosinophils # (Auto) 0.20 K/uL (0-0.5) Basophils # (Auto) 0.04 K/uL (0-0.2) RDW Standard Deviation 38.7 fL (36.4-46.3) RDW Coefficient of Variation 13.5 % (11.5-14.5) Immature Granulocyte % (Auto) 0.9 % Immature Granulocyte # (Auto) 0.09 K/uL (0.00-0.02) Erythrocyte Sedimentation Rate 60 mm/hr (0-14) Prothrombin Time 11.2 SECONDS (9.0-12.0) Prothromb Time International Ratio 1.0 (0.9-1.1) Activated Partial Thromboplast Time 25.9 SECONDS (21.0-31.0) Partial Thromboplastin Ratio 1.0 Anion Gap 10.0 mmol/L (3-11) Est Creatinine Clear Calc Drug Dose 23.9 ml/min Estimated GFR () 18.7 Estimated GFR (Non- 16.1 BUN/Creatinine Ratio 22.2 (10-20) Calcium Level 9.0 mg/dl (8.5-10.1) Phosphorus Level 4.2 mg/dl (2.5-4.9) Magnesium Level 2.2 mg/dl (1.8-2.4) Total Bilirubin 0.1 mg/dl (0.2-1) Aspartate Amino Transf (AST/SGOT) 21 U/L (15-37) Alanine Aminotransferase (ALT/SGPT) 22 U/L (12-78) Alkaline Phosphatase 120 U/L (45-117) Total Creatine Kinase 95 U/L (39-308) Creatine Kinase MB 1.1 ng/ml (0.5-3.6) Creatine Kinase MB Ratio 1.2 (0-3.0) Troponin I < 0.015 ng/ml (0-0.045) C-Reactive Protein 10.70 mg/dl (0-0.29) Pro-B-Type Natriuretic Peptide 6992 pg/ml (0-900) Total Protein 8.4 gm/dl (6.4-8.2) Albumin 3.1 gm/dl (3.4-5.0) Globulin 5.3 gm/dl (2.5-4.0) Albumin/Globulin Ratio 0.6 (0.9-2) Lipase 104 U/L (73-393) Bedside Lactic Acid Venous 1.56 mmol/L (0.90-1.70) Urine Color YELLOW Urine Appearance CLEAR (CLEAR) Urine pH 5.0 (4.5-7.5) Urine Specific [place] 1.022 (1.000-1.030) Urine Protein 2+ (NEG) Urine Glucose (UA) NEG (NEG) Urine Ketones NEG (NEG) Urine Occult Blood TRACE (NEG) Urine Nitrite NEG (NEG) Urine Bilirubin NEG (NEG) Urine Urobilinogen NEG (NEG) Urine Leukocyte Esterase NEG (NEG) Urine WBC (Auto) 1-5 /hpf (0-5) Urine RBC (Auto) 5-10 /hpf (0-4) Urine Hyaline Casts (Auto) 0 /lpf (0-5) Urine Epithelial Cells (Auto) 0-5 /lpf (0-5) Urine Bacteria (Auto) NEG (NEG) Bedside Glucose 46 mg/dl (70-99) Laboratory results per my review. Medications Administered Medications (Trade) Dose Ordered Sig/Adán Route Start Time Stop Time Status Last Admin Dose Admin Acetaminophen (Tylenol Tab) 1,000 mg NOW STAT PO 11/13/17 17:03 02/12/17 17:04 DC 02/12/17 17:48 1,000 MG ECG Indication: weakness Rate (beats per minute): 82 Rhythm: normal sinus Findings: ST depression (Lateral), no ectopy, other (LVH by voltage criteria) Change: no significant change (No change from January 08, 2017) ED Course 1659: The patient was evaluated in room C12. A complete history and physical examination were performed. 1703: Acetaminophen 1000 mg PO. 1743: Dextrose 50% 50 ml IV. 1843: Nursing informed me the patients serum glucose is 52. 1944: I reevaluated the patient. He is resting comfortably but has not provided us a urine sample yet. 2119: I reevaluated the patient. He is resting comfortably. I discussed my recommendation he remain in the hospital for further evaluation and management and he verbalized complete understanding and agreement. 2123: I discussed the patients case [facility] The patient will be further evaluated. Medical Decision Prior records/ancillary studies reviewed. Triage Nursing notes reviewed. The patient's history was concerning for fever. Differential diagnosis: Etiologies such as viral syndrome, otitis, pharyngitis, pneumonia, influenza, meningitis, urinary tract infection, sepsis, bacteremia, as well as others were entertained. The patient is a 71-year-old male who presented to the emergency department for an evaluation of malaise and upper respiratory symptoms. The patient had a fever. He also has been complaining of cough. He was seen at [facility] recently for similar complaints. He had a very extensive workup which included a VQ scan. The patient had no definite cause for his symptoms noted and he was sent home. We discussed his condition with his primary care physician as well as his clinical research analyst he was told to come to our emergency department for admission and further workup. I discussed the patient's laboratory radiographic studies with him. No definite cause for an infection could be found but his inflammatory markers are elevated and I'm concerned at this time this could represent an underlying infection. I discussed his case with the on-call [facility] hospitalist group. At this time I will allow them to evaluate the patient prior to starting antibiotics. He was found have hematuria although this was sent for culture I'm unsure if this represents a urine infection. The patient was reevaluated multiple times. Medication Reconcilliation Current Medication List: was personally reviewed by me Blood Pressure Screening Patient's blood pressure: Elevated blood pressure Blood pressure disposition: Elevated BP felt to be situational Consults Time Called: 2121 Consulting Physician: Wilmer Moreno Hospitalist Returned Call: 2123 I discussed the patients case with [facility]. The patient will be further evaluated. Impression Primary Impression: Fever Additional Impressions: Hypoglycemia Chronic renal failure Scribe Attestation The scribe's documentation has been prepared under my direction and personally reviewed by me in its entirety. I confirm that the note above accurately reflects all work, treatment, procedures, and medical decision making performed by me. Departure Information Referrals No Doctor, Assigned (PCP) Patient Instructions My [facility] Problem Qualifiers Primary Impression: Fever Fever type: unspecified Qualified Codes: R50.9 - Fever, unspecified Additional Impressions: Chronic renal failure Chronic kidney disease stage: unspecified stage Qualified Codes: N18.9 - Chronic kidney disease, unspecified
[2017-02-12] MEDS ORDERED: DEXTROSE 25% 250 MG/ML 10 ML SYR IV STA (17:19)
--- NOTE | 2017-02-12 17:26 | DIAGNOSTIC IMAGING REPORT ---
CHEST ONE VIEW PORTABLE CLINICAL HISTORY: Sepsis. COMPARISON STUDY: Chest CT T and chest radiograph January 05, 2017. FINDINGS: Posterior cervical spine fusion is incidentally noted. No pneumothorax or pleural effusion is present. Mild left basilar opacity favors atelectasis or epicardial fat pad. Prominent vascularity is normal. Cardiomediastinal silhouette is stable. IMPRESSION: No acute cardiopulmonary findings. Electronically signed by: Dave Weeks M.D. 02/12/2017 5:25 PM Dictated Date/Time: 02/12/2017 5:23 PM
[2017-02-12] MEDS ORDERED: DEXTROSE 50% 50 ML SYR IV STA (17:43)
[2017-02-12 17:54] LABS: BASO % 0.4 %; BASO ABS # 0.04 K/uL (0-0.2); COMPLETE YES; EOS % 2.1 %; HEMATOCRIT 27.3 % (42-52); IG% 0.9 %; LYMPH % 27.5 %; LYMPH ABS # 2.64 K/uL (1.2-3.4); MEAN CELL VOLUME 78.7 fL (80-100); MEAN CORPUSCULAR HEMOGLOBIN 26.2 pg (25-34); MEAN CORPUSCULAR HGB CONC 33.3 g/dl (32-36); MONO % 16.8 %; NEUT % 52.3 %; PLATELET COUNT 275 K/uL (130-400); RED BLOOD COUNT 3.47 M/uL (4.7-6.1); WHITE BLOOD COUNT 9.61 K/uL (4.8-10.8)
[2017-02-12 18:03] LABS: PROTHROMBIN TIME (PATIENT) 11.2 SECONDS (9.0-12.0)
[2017-02-12 18:12] LABS: BLOOD UREA NITROGEN 80 mg/dl (7-18); BUN/CREATININE RATIO 22.2 (10-20); CREATININE 3.62 mg/dl (0.60-1.40)
[2017-02-12 18:13] LABS: ALT/SGPT 22 U/L (12-78); AST/SGOT 21 U/L (15-37); CARBON DIOXIDE 25 mmol/L (21-32); CHLORIDE 101 mmol/L (98-107); MAGNESIUM 2.2 mg/dl (1.8-2.4); POTASSIUM 4.1 mmol/L (3.5-5.1); SODIUM 136 mmol/L (136-145)
[2017-02-12 18:15] LABS: ALB/GLOB RATIO 0.6 (0.9-2); ALKALINE PHOSPHATASE 120 U/L (45-117); CKMB/CK RATIO 1.2 (0-3.0); PHOSPHORUS 4.2 mg/dl (2.5-4.9)
[2017-02-12 18:41] LABS: GLUCOSE 52 mg/dl (70-99)
[2017-02-12 21:08] LABS: URINE APPEARANCE CLEAR (CLEAR); URINE BILIRUBIN NEG (NEG); URINE COLOR YELLOW; URINE EPITHELIAL CELL AUTO 0-5 /lpf (0-5); URINE NITRITE NEG (NEG); URINE SPECIFIC GRAVITY 1.022 (1.000-1.030); UROBILINOGEN NEG (NEG); ZZUR CULT IF INDIC CLEAN CATCH NO
[2017-02-12 21:15] LABS: MANUAL MICROSCOPIC REQUIRED? NO; REVIEW REQ? NO
[2017-02-12] MEDS ORDERED: GLUCOSE 10 TABS/TUBE PO PRN (22:45)
[2017-02-12] MEDS ORDERED: GLUCAGON FOR INJ 1 MG VIAL SQ PRN (22:45)
[2017-02-12] MEDS ORDERED: ALBUT/IPRATROP 3MG/0.5MG NEB 3 ML VIAL INH PRN (22:45)
[2017-02-12] MEDS ORDERED: ACETAMINOPHEN 325 MG TAB PO PRN (22:45)
[2017-02-12] MEDS ORDERED: GLUCOSE 40% GEL 15 GM TUBE PO PRN (22:45)
[2017-02-12] MEDS ORDERED: DEXTROSE 50% 50 ML SYR IV PRN (22:45)
[2017-02-12] MEDS ORDERED: EPGI10M (22:47)
[2017-02-12] MEDS ORDERED: MECLIZINE HCL 25 MG TAB PO PRN (23:00)
--- NOTE | 2017-02-12 23:26 | History and Physical ---
History & Physical Date & Time of Service: Feb 12, 2017 at 22:51 Chief Complaint: Kidney Failure- Physician Referred Primary Care Physician: Deedee Perkins PA-C History of Present Illness Source: patient, spouse Pt is 71 y/o M with PMH pancreatic/liver CA, diastolic HF, CKD, asthma presented to ER with c/o increased weakness, cough. Pt states approx 1.5-2 weeks ago started with tactile fever, dry cough, SOB, weakness. Reports was seen by PCP and given IM steroid and started on Zithromax. Pt states then was admitted to [facility] last week and dx with rhinovirus and no further antibiotics were given. Pt states that he is still feeling generalized weakness and continues with cough. he had been using Robitussin without much relief. Reports that called his risk specialist who instructed to go to ER. Pt reports BS low to 500's. Reports last night in BS 30s and was diaphoretic and confused and states was seen at [facility] ER and d/c home. Pt states that he has been only taking 30 U lantus daily (instead of 50) secondary to the recent hypoglycemia. Hx CKD, follows with Dr Clancy. Had fistula placed end of Dec. States still makes urine, but little amounts since on fluid restrictions recently. He had recent hospitalization here in 12/2016 for diastolic HF. Pt states since he has been on fluid restrictions and has had decreased edema of LE. Pt follows with Dr Arthur Huynh in [place] for his pancreatic and liver CA. Denies N/V/D/C, RILEY, dizziness, syncope, vision changes, neck pain, CP, orthopnea, palpitations, hemoptysis, sore throat, choking, otalgia, rhinorrhea, abdominal pain, paresthesias, weakness, extremity weakness, rashes, urinary symptoms. In ER glucose 4 given dextrose, and orange juice and repeat 70, then down to 46 , given another dose dextrose and given crackers, peanut butter. Glucose 251 currently. BP: 152/82, 170/81, Resp: 20, Pulse: 88, O2 96% on RA. No leukocytosis. H/H 12/27 (pt's baseline). CR: 3.6, GFR: 16 (baseline recently). ESR: 60, CRP:10. CXR: negative. EKG: NSR rate 82 Past Medical/Surgical History Medical Problems: (1) Anemia Status: Chronic (2) Asthma Status: Chronic (3) Diabetes Status: Chronic (4) Hypertension Status: Chronic (5) Liver cancer Status: Chronic (6) Pancreas cancer Status: Chronic (7) Right rib fracture Status: Resolved (8) Stenosis of cervical spine Status: Resolved (9) Traumatic joint effusion Status: Resolved Surgical Problems: (1) H/O cervical spine surgery Status: Resolved (2) S/P foot surgery Status: Chronic (3) S/P knee surgery Status: Chronic (4) S/P lumbar spine operation Status: Chronic Family History Cancer Diabetes mellitus Heart disease Hypertension Lung disease Social History Smoking Status: Former Smoker (smoked pipe, cigars) Smokeless Tobacco Use: former use Alcohol Use: none Drug Use: none Marital Status: Housing status: lives with significant other Occupational Status: retired Immunizations History of Influenza Vaccine: Yes Influenza Vaccine Date: Jan 01, 2016 History of Tetanus Vaccine?: Yes Tetanus Immunization Date: Oct 06, 2008 History of Pneumococcal: No History of Hepatitis B Vaccine: No Multi-Drug Resistant Organisms History of MDRO: No Allergies Coded Allergies: Sulfa Antibiotics (Verified Allergy, Mild, RASH, 01/05/17) NSAIDs (Unverified Allergy, Unknown, "NO NSAIDS"due to kidney disease, 01/05/17) Home Medications Scheduled Calcitriol (Rocaltrol Cap), 0.25 MCG PO QAM Citalopram (Citalopram Hydrobromide), 40 MG PO DAILY Epoetin Jamie (Procrit), WK Ergocalciferol (Vitamin D 68552 Unit), 1 TAB PO [id number] Everolimus (Afinitor), 10 MG PO QAM Fluticasone Prop/Salmeterol (Advair Diskus 250/50 60 Dose), 1 PUFF INH DAILY Gabapentin (Neurontin), 400 MG PO BID Insulin Glargine (Lantus Solostar), 55 UNITS SC QAM Insulin Lispro (Human) (Humalog Kwikpen), 1 DOSE SC UD Ipratropium-Albuterol (Combivent Respimat), 1 PUFFS INH QID Ranitidine Hcl (Zantac), 150 MG PO QPM Sevelamer Carbonate (Renvela), 800 MG PO TIDM Simvastatin (Zocor), 20 MG PO QPM Torsemide (Torsemide), 60 MG PO DAILY [Octreotide], 1 DOSE INJ [id number] Scheduled PRN Acetaminophen (Tylenol), 650 MG PO Q4H PRN for MILD PAIN Albuterol Sulfate (Proair Respiclick), 2 PUFFS INH Q4 PRN for Wheezing Glucagon (Glucagon Emergency Kit), 1 MG SC UD PRN for HYPOGLYCEMIA PROTOCOL Meclizine HCl (Meclizine 25), 25 MG PO TID PRN for Dizziness or Vertigo Review of Systems See HPI for pertinent positives & negatives. All other systems reviewed and were otherwise negative Physical Exam Vital Signs Date Time Temp Pulse Resp B/P (MAP) Pulse Ox O2 Delivery O2 Flow Rate FiO2 02/12/17 22:32 87 20 173/76 99 Room Air 02/12/17 21:51 84 02/12/17 20:40 82 20 170/81 95 Room Air 02/12/17 18:23 80 18 154/81 98 Room Air 02/12/17 17:53 80 02/12/17 17:46 96 Room Air 02/12/17 16:53 37.2 88 22 151/82 96 Room Air General Appearance: + obese, + pertinent finding (chronically ill appearing. no acute distress) Head: normocephalic, atraumatic Eyes: normal inspection, PERRL, EOMI, sclerae normal ENT: hearing grossly normal, pharynx normal, + pertinent finding (no rhinorrhea ) Neck: supple, no JVD, trachea midline Respiratory/Chest: chest non-tender, no respiratory distress, no accessory muscle use, + pertinent finding (+faint scattered wheezing throughout, no rales or rhonchi noted) Cardiovascular: regular rate, rhythm, no murmur Abdomen/GI: normal bowel sounds, non tender, soft Extremities/Musculoskelatal: normal range of motion, non-tender, + pedal edema (1+bilateral LE) Neurologic/Psych: alert, normal mood/affect, oriented x 3 Skin: normal color, warm/dry, no rash Diagnostics Laboratory Results Results Past 24 Hours Test 02/12/17 17:17 02/12/17 17:35 02/12/17 17:38 02/12/17 18:20 Range/Units Bedside Glucose 40 70 70-99 mg/dl White Blood Count 9.61 4.8-10.8 K/uL Red Blood Count 3.47 4.7-6.1 M/uL Hemoglobin 9.1 14.0-18.0 g/dL Hematocrit 27.3 42-52 % Mean Corpuscular Volume 78.7 80-100 fL Mean Corpuscular Hemoglobin 26.2 25-34 pg Mean Corpuscular Hemoglobin Concent 33.3 32-36 g/dl Platelet Count 275 130-400 K/uL Mean Platelet Volume 12.0 7.4-10.4 fL Neutrophils (%) (Auto) 52.3 % Lymphocytes (%) (Auto) 27.5 % Monocytes (%) (Auto) 16.8 % Eosinophils (%) (Auto) 2.1 % Basophils (%) (Auto) 0.4 % Neutrophils # (Auto) 5.03 1.4-6.5 K/uL Lymphocytes # (Auto) 2.64 1.2-3.4 K/uL Monocytes # (Auto) 1.61 0.11-0.59 K/uL Eosinophils # (Auto) 0.20 0-0.5 K/uL Basophils # (Auto) 0.04 0-0.2 K/uL RDW Standard Deviation 38.7 36.4-46.3 fL RDW Coefficient of Variation 13.5 11.5-14.5 % Immature Granulocyte % (Auto) 0.9 % Immature Granulocyte # (Auto) 0.09 0.00-0.02 K/uL Erythrocyte Sedimentation Rate 60 0-14 mm/hr Prothrombin Time 11.2 9.0-12.0 SECONDS Prothromb Time International Ratio 1.0 0.9-1.1 Activated Partial Thromboplast Time 25.9 21.0-31.0 SECONDS Partial Thromboplastin Ratio 1.0 Sodium Level 136 136-145 mmol/L Potassium Level 4.1 3.5-5.1 mmol/L Chloride Level 101 98-107 mmol/L Carbon Dioxide Level 25 21-32 mmol/L Anion Gap 10.0 3-11 mmol/L Blood Urea Nitrogen 80 7-18 mg/dl Creatinine 3.62 0.60-1.40 mg/dl Est Creatinine Clear Calc Drug Dose 23.9 ml/min Estimated GFR () 18.7 Estimated GFR (Non- 16.1 BUN/Creatinine Ratio 22.2 10-20 Random Glucose 52 70-99 mg/dl Calcium Level 9.0 8.5-10.1 mg/dl Phosphorus Level 4.2 2.5-4.9 mg/dl Magnesium Level 2.2 1.8-2.4 mg/dl Total Bilirubin 0.1 0.2-1 mg/dl Aspartate Amino Transf (AST/SGOT) 21 15-37 U/L Alanine Aminotransferase (ALT/SGPT) 22 12-78 U/L Alkaline Phosphatase 120 45-117 U/L Total Creatine Kinase 95 39-308 U/L Creatine Kinase MB 1.1 0.5-3.6 ng/ml Creatine Kinase MB Ratio 1.2 0-3.0 Troponin I < 0.015 0-0.045 ng/ml C-Reactive Protein 10.70 0-0.29 mg/dl Pro-B-Type Natriuretic Peptide 6992 0-900 pg/ml Total Protein 8.4 6.4-8.2 gm/dl Albumin 3.1 3.4-5.0 gm/dl Globulin 5.3 2.5-4.0 gm/dl Albumin/Globulin Ratio 0.6 0.9-2 Lipase 104 73-393 U/L Bedside Lactic Acid Venous 1.56 0.90-1.70 mmol/L Test 02/12/17 20:25 02/12/17 20:32 Range/Units Urine Color YELLOW Urine Appearance CLEAR CLEAR Urine pH 5.0 4.5-7.5 Urine Specific [place] 1.022 1.000-1.030 Urine Protein 2+ NEG Urine Glucose (UA) NEG NEG Urine Ketones NEG NEG Urine Occult Blood TRACE NEG Urine Nitrite NEG NEG Urine Bilirubin NEG NEG Urine Urobilinogen NEG NEG Urine Leukocyte Esterase NEG NEG Urine WBC (Auto) 1-5 0-5 /hpf Urine RBC (Auto) 5-10 0-4 /hpf Urine Hyaline Casts (Auto) 0 0-5 /lpf Urine Epithelial Cells (Auto) 0-5 0-5 /lpf Urine Bacteria (Auto) NEG NEG Bedside Glucose 46 70-99 mg/dl Microbiology Results 02/12/17 Blood Culture, Received Pending 02/12/17 Blood Culture, Received Pending Diagnostic Radiology CXR: IMPRESSION: No acute cardiopulmonary findings. EKG EKG: Normal sinus rhythm Minimal voltage criteria for LVH, may be normal variant Prolonged QT Abnormal ECG When compared with ECG of 08-JAN-2017 07:16, No significant change was found Confirmed by AUSTIN GREGORY ([id number]) on 02/12/2017 6:19:18 PM Impression Assessment and Plan BRONCHITIS/ASTHMA Pt had +rhinovirus at [facility] last week & negative influenza. Continued cough and SOB. Negative CXR here. Afebrile. No leukocytosis -pending blood cultures -Hold on antibiotics at this time -continue advair -duonebs -hold on steroids at this time, reassess in morning -hold IV fluids at this time with hx HF -cbc, prp HYPOGLYCEMIA current BS 251 after 2 doses dextrose and pt eating -continue to monitor -hold lantus at this time -NovoLog sliding scale -A1C: 7.0 on 01/06/17 CKD STAGE IV progressive worsening renal failure. Pt had fistula placed 12/2016. Not on dialysis currently. -consult nephrology HX DIASTOLIC HF No signs of vol overload at this time. ECHO: 12/2016 EF: 55-60% -continue torsemide HTN Pt recently taken off amlodipine and taken off metoprolol -Continue to monitor, may consider med HYPERLIPIDEMIA -continue zocor -Lipids on 01/06/17: Total chol: 213, LDL: 37, HDL: 36, Triglycerides:213 ANEMIA At baseline. Probable anemia of chronic kidney disease. no active bleeding. denies melena -monitor cbc PANCREATIC CANCER -continue affinitor DEPRESSION -continue celexa DVT PROPHYLAXIS -Heparin SQ DISPOSITION -admit med/surg -Full Code as per discussion with pt Pt was seen with Dr Baron. See addendum Attending Addendum Pt was seen and examined. Agreed with Tyra QUIROS exam, assessment and plan. 71 y/o M with H pancreatic/liver CA, diastolic HF, CKD stage 4, asthma presented to ER with c/o symptoms of URI and weakness, cough. Pt said that for about 2 weeks he has been having a dry cough, fever, congestion and SOB. He saw his PCP and was given a IM steroid and prescribed him Zithromax. Last week he was admitted at [facility] and was diagnosed with rhinovirus. He said that he feels weak and continue to cough. He called his nephrology and instructed him to go the ER. Pt also said that his BS has been fluctuated from low to high. He said that when his BS drops in the 40, he starts to feels shaky and sweating. Mild wheezing on exam. In the ER he had CXR done that showed no acute finding. Elevated Pro BNP, C- reactive and ESR. No leukocytosis. Will get blood cx. will hold on abx for now. Will start on Duoneb. Will give one dose prednisone now and reassess tomorrow. continue cough med. PT/ OT for the weakness. Continue monitor. EKG, Lab, CXR reviewed Please refer to Tyra QUIROS documentation for other problems. Kwame Baron MD Level of Care Med/Surg Resuscitation Status FULL RESUSCITATION VTE Prophylaxis VTE Risk Assessment Done? Y/N: Yes Risk Level: Moderate Given or contraindicated: Unfractionated heparin SQ
[2017-02-12] MEDS ORDERED: HydrALAZINE HCL 20 MG/ML VIAL IV. PRN (23:45)
[2017-02-12 23:53] VITALS: BP 163/71; PULSE 88; PULSE 91; TEMP 36.5; O2SAT 98; BMI 29.9
[2017-02-13] VITALS (8 sets, daily range): BP systolic 121–138; BP diastolic 64–69; PULSE 79–90; TEMP 36.6–37.1; O2SAT 93–98; Ht 182.9 cm; Wt 98.8 kg
[2017-02-13] MEDS: HEPARIN SOD 5000 UNIT/0.5 ML CARP SQ SCH ×3 (06:06→20:37)
[2017-02-13 07:05] LABS: HEMATOCRIT 26.5 % (42-52); MEAN CELL VOLUME 79.1 fL (80-100); MEAN CORPUSCULAR HEMOGLOBIN 25.7 pg (25-34); MEAN CORPUSCULAR HGB CONC 32.5 g/dl (32-36); MEAN PLATELET VOLUME 12.2 fL (7.4-10.4); PLATELET COUNT 223 K/uL (130-400); RED BLOOD COUNT 3.35 M/uL (4.7-6.1)
[2017-02-13 07:47] LABS: BUN/CREATININE RATIO 22.4 (10-20); CALCIUM 8.7 mg/dl (8.5-10.1); CREATININE 3.45 mg/dl (0.60-1.40); POTASSIUM 5.1 mmol/L (3.5-5.1)
[2017-02-13] MEDS ORDERED: INSULIN GLARGINE SOLOSTAR 100 UNITS/ML 3 ML PEN SC SCH ×2 (08:00→20:00)
[2017-02-13] MEDS ORDERED: CITALOPRAM 40 MG TAB PO SCH (08:00)
[2017-02-13] MEDS: SEVELAMER HYDROCH 800 MG TAB PO SCH ×3 (08:17→16:55)
[2017-02-13] MEDS: GABAPENTIN 400 MG CAP PO SCH ×2 (08:17→20:38)
[2017-02-13] MEDS: TORSEMIDE 20 MG TAB PO SCH (08:17)
[2017-02-13] MEDS: CALCITRIOL 0.25 MCG CAP PO SCH (08:18)
[2017-02-13] MEDS: FLUTICASONE/SALMETEROL 250/50 (ADVAIR) 14 PUFF/1 INHALER INH SCH (08:18)
[2017-02-13] MEDS: EVEROLIMUS 10 MG PO SCH (08:19)
[2017-02-13] MEDS ORDERED: PHARMACY GLYCEMIC MGMT CONSULT PRN (08:26)
[2017-02-13] MEDS ORDERED: INSULIN HUMAN REGULAR PER UNIT 5 UNITS in SYRINGE 4.95 ML IV SCH (08:45)
[2017-02-13] MEDS ORDERED: EPOETIN ALFA 10,000 UNITS/ML VIAL SQ ONE (09:00)
[2017-02-13] MEDS: INSULIN ASPART 100 UNITS/ML 3 ML PEN SC SCH ×4 (09:22→21:00)
--- NOTE | 2017-02-13 09:53 | Pharmacy Progress Note ---
Glycemic Control Intl Consult Date of Service Feb 13, 2017. Scope Glycemic Pharmacist consulted by Dr Taveras on 02/13/17 for glycemic control and to write orders per [facility] inpatient glycemic control protocol Objective Weight (Kilograms): 98.800 Accuchecks BSG (last 24hrs): Test 02/12/17 17:17 02/12/17 17:35 02/12/17 18:20 02/12/17 20:32 Bedside Glucose 40 mg/dl (70-99) 70 mg/dl (70-99) 46 mg/dl (70-99) Random Glucose 52 mg/dl (70-99) Test 02/12/17 22:22 02/13/17 04:06 02/13/17 06:15 02/13/17 08:07 Bedside Glucose 251 mg/dl (70-99) 263 mg/dl (70-99) 331 mg/dl (70-99) Random Glucose 271 mg/dl (70-99) Laboratory Data (last 24hrs) Test 02/12/17 17:35 02/13/17 06:15 Anion Gap 10.0 mmol/L 11.0 mmol/L BUN/Creatinine Ratio 22.2 22.4 Blood Urea Nitrogen 80 mg/dl 77 mg/dl Creatinine 3.62 mg/dl 3.45 mg/dl Potassium Level 4.1 mmol/L 5.1 mmol/L Sodium Level 136 mmol/L 133 mmol/L White Blood Count 9.61 K/uL 7.50 K/uL Red Blood Count 3.47 M/uL Hemoglobin 9.1 g/dL Hematocrit 27.3 % Mean Corpuscular Volume 78.7 fL Mean Corpuscular Hemoglobin 26.2 pg Mean Corpuscular Hemoglobin Concent 33.3 g/dl Platelet Count 275 K/uL Mean Platelet Volume 12.0 fL Neutrophils (%) (Auto) 52.3 % Lymphocytes (%) (Auto) 27.5 % Monocytes (%) (Auto) 16.8 % Eosinophils (%) (Auto) 2.1 % Basophils (%) (Auto) 0.4 % Neutrophils # (Auto) 5.03 K/uL Lymphocytes # (Auto) 2.64 K/uL Monocytes # (Auto) 1.61 K/uL Eosinophils # (Auto) 0.20 K/uL Basophils # (Auto) 0.04 K/uL Recent Pertinent Medications Outpatient Anti-diabetic Regimen: * Lantus 55 units qAM (patient has only been taking 30 units recently) * Humalog 18-40 units TID with meals per sliding scale * BSGs ranging from 30s-500s at home * A1c = 7 % 01/06/17 The patient is currently receiving: * No insulin given since admission * Ordered: * Lantus 20 units qAM * Novolog ACHS * Goal 140-180 * CF 40 * CR 14 Risk Factors for Insulin Resistance: * Steroids: prednisone 20 mg x 1 at midnight last night * Diet: renal (I added type 2 diabetes to this today) * Hypoglycemia treatment w/ IV dextrose and po glucose without additional insulin coverage Assessment & Plan ASSESSMENT: * 71 y/o male admitted with bronchitis and hypoglycemia (2nd admission in a few months with severe hypoglycemia) * Pertinent PMH includes pancreatic cancer and stage 4 CKD - not yet on dialysis * Per H&P, patient has recently had BSGs all over the place and has only been taking Lantus 30 units instead of the 55 units due to low BSGs * BSGs are now in the 300s secondary to the prednisone overnight and hypoglycemia treatment * Based on data from his last admission, he was on Lantus 10 units BID, Novolog with a CF 40, CR 14 and had BSGs in the 200s with this regimen * Will plan to give a 0.05 unit/kg dose of IV insulin at this time * Will also tighten the CF/CR based upon insulin calculator estimates using patient's weight and stress level of ~2 * Lantus dose will be increased to 20 units BID, with a reduced dose of 10 units if BSG < 180 mg/dL PLAN FOR INPATIENT GLYCEMIC CONTROL: * Give 5 units IV insulin x 1 now * Increase Lantus to 20 units BID (10 units if BSG < 180) * Tighten CF to 25 * Tighten CR to 10 - july plan to loosen later today once steroids worn off * Consult CDE to assist with discharge recommendations due to multiple admissions with hypoglycemia Thank you.
[2017-02-13] MEDS ORDERED: INSULIN HUMAN REGULAR PER UNIT 7 UNITS in SYRINGE 6.93 ML IV SCH (11:30)
--- NOTE | 2017-02-13 11:44 | NEPHROLOGY CONSULTATION ---
DATE OF CONSULTATION: 02/13/2017 ATTENDING OF RECORD: Kwame Baron MD REASON FOR CONSULTATION: CKD stage IV. 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 Huynh of [facility]. The patient is also with hypertension and BPH with urinary retention as well as bilateral kidney stones in the past. The patient recently started on Procrit injections after getting permission from Dr. Huynh at the [facility] to start. The patient also has a fistula placed in December of this year by Dr. Fagan with good bruit and thrill. At the last appointment with Dr. Dawn, creatinine was in the mid 3s with a GFR of 16-17 and discussed the fact that the patient likely will be starting dialysis in the next 3-9 months. AV fistula is maturing nicely and was following monthly labs as an outpatient. The patient was recently at [facility] for rhinovirus and was discharged on last to home. The patient though has been having worsening hypoglycemia and has been taking less Lantus, continues to have dry cough, weakness, shortness of breath with exertion. He still states that he has a good appetite depending on whether the food is good or not and no nausea or vomiting. No metallic taste to foods. The patient currently is resting comfortably. ROS: no nausea/vomiting, +fatigue, good appetite, no fevers or chills, +cough, + sob with exertion, no chest pain, no rash or itching, all other review of systems otherwise negative. PAST MEDICAL HISTORY: CKD stage IV with a maturing fistula with a creatinine in the mid 3s at baseline, anemia of chronic kidney disease with Procrit injections that were recently started, diabetes on insulin, hypertension, liver/pancreatic cancer followed by Dr. Huynh, cervical spine stenosis, and asthma. PAST SURGICAL HISTORY: C-spine surgery, fistula placement, and lumbar spine surgery. FAMILY HISTORY: Significant for diabetes and hypertension. SOCIAL HISTORY: Former smoker. No alcohol. No drugs. for 45 years. Lives at home. CURRENT MEDICATIONS: Zantac 150 mg daily, Zocor 20 mg daily, calcitriol 0.25 mcg daily, Celexa 40 mg daily, Advair inhaler daily, Neurontin 400 mg p.o. b.i.d., Demadex 60 mg daily, Renagel 800 mg p.o. t.i.d. with meals, everolimus 10 mg daily, and heparin 5000 units subQ q. 8 hours. PHYSICAL EXAMINATION: VITAL SIGNS: Temperature 36.8, pulse 86, respiratory rate 16, blood pressure 131/66, and satting 94% on room air. GENERAL: Awake, alert, and oriented x3. HEENT: No scleral icterus. Moist mucous membranes. NECK: Supple. PULMONARY: Slight end expiratory wheeze. CARDIAC: Regular rate and rhythm. ABDOMEN: Bowel sounds positive. Soft and nontender. EXTREMITIES: Mild edema. NEUROLOGICALLY: Nonfocal. DERMATOLOGIC: No rash or ulcers noted. LABORATORY DATA: Sodium level is 136, potassium is 4.1, chloride is 101, bicarb is 25, BUN is 80, creatinine is 3.62, glucose 52, calcium is 9, phosphorus is 4, and mag is 2.2. ProBNP 6992. C-reactive protein 10.7. Albumin is 3.1 and lipase 104. White count 7.5, H&H 8.6 and 26.5, and platelet count is 223. Sed rate 60. INR is 1. UA shows a pH of 5, specific gravity 1.022, 2+ protein, trace blood, and 5-10 RBCs. Blood cultures are pending. Chest x-ray shows no acute cardiopulmonary findings. ASSESSMENT AND PLAN: 1. Chronic kidney disease, stage IV, baseline creatinine around 3.5. The patient presents today with a creatinine of 3.6 while dealing with a resolving rhinovirus, still with fatigue and dry cough. Difficult to determine uremic symptoms given the recent rhinovirus infection. No nausea or vomiting. He states that he is able to eat depending on the quality of food. No metallic taste to foods, still urinating. We will hold off on initiating dialysis at this time given the GFR of greater than 15 and I will follow the levels. 2. Anemia of chronic kidney disease, just recently started on Procrit injections by Dr. Huynh from hematology/oncology, was okay with the initiation of Procrit. Hemoglobin levels appear to be trending down. We will go ahead and give another dose of Procrit today to try to help raise the levels. The patient is aware of the risk of worsening cancer with Procrit and is agreeable to continue the Procrit injections. 3. Renal osteodystrophy. The patient is on calcitriol as well as phosphate binders. We are going to follow phosphorus levels intermittently throughout hospitalization. 4. Pulmonology/upper respiratory tract infection. He has resolving rhinovirus. We will defer to primary hospitalist, okay with continuing the current diuretics. He does not appear overtly fluid overloaded at this time. Supportive measures. 5. Diabetes. The patient was dealing with lower blood sugars and primary hospitalist is adjusting insulin requirements to try to have blood sugars under better control, which is the primary purpose in my opinion of this admission. I appreciate the consultation. EDUARDO
[2017-02-13 13:08] LABS: INFLUENZA A PCR Neg for Influ A (NEG); INFLUENZA B PCR Neg for Influ B (NEG)
[2017-02-13] MEDS ORDERED: INSULIN HUMAN REGULAR IV BOLUS 2.5 UNIT in SYRINGE 0 ML IV SCH (14:45)
[2017-02-13] MEDS: LEVALBUTEROL 0.63MG/3 ML NEB INH SCH ×2 (15:00→19:12)
[2017-02-13] MEDS ORDERED: LEVALBUTEROL/IPRATROPIUM NEB INH SCH (15:00)
[2017-02-13] MEDS: IPRATROPIUM BROMIDE NEB SOLN 0.02% 2.5 ML VIAL INH SCH ×2 (15:00→19:12)
[2017-02-13] MEDS: INSULIN REGULAR 250 UNITS in SODIUM CHLORIDE 0.9% 250ML 250 ML IV SCH ×8 (15:22→22:35)
[2017-02-13] MEDS: DOXYCYCLINE HYCLATE 100 MG CAP PO SCH (16:54)
--- NOTE | 2017-02-13 17:24 | Progress Note ---
Medicine Progress Note Date & Time of Visit: Feb 13, 2017 at 15:10. Subjective seen sitting up in bed, appears comfortable but tired states he still has dry cough, congestion, some dyspnea denies chest pain, palpitations, dizziness BSGs elevated in the 400s denies other symptoms Objective Last 8 Hrs Date Time Temp Pulse Resp B/P (MAP) Pulse Ox O2 Delivery O2 Flow Rate FiO2 02/13/17 11:14 36.6 90 24 138/64 (88) 98 Room Air 02/13/17 09:46 95 Room Air 02/13/17 08:00 94 Room Air Physical Exam: General- oriented x 3, not in distress, speaks in sentences with no effort Head- atraumatic Eyes- PERRL, EOMI, anicteric ENT- oropharynx clear Neck- supple, no JVD, no adenopathy, no thyromegaly; carotids +2/2, no bruits appreciated Lungs- mild occasional wheeze on the right upper lobe, no rales Heart- regular rhythm; no murmur, normal rate Abdomen- normal bowel sounds, soft, nontender Extremities- no pretibial edema, no calf tenderness; peripheral pulses intact Neuro- alert, oriented x 3;no gross focal deficits Skin- warm & dry Laboratory Results: Last 24 Hours Test 02/12/17 17:17 02/12/17 17:35 02/12/17 17:38 02/12/17 18:20 Bedside Glucose 40 mg/dl 70 mg/dl White Blood Count 9.61 K/uL Red Blood Count 3.47 M/uL Hemoglobin 9.1 g/dL Hematocrit 27.3 % Mean Corpuscular Volume 78.7 fL Mean Corpuscular Hemoglobin 26.2 pg Mean Corpuscular Hemoglobin Concent 33.3 g/dl Platelet Count 275 K/uL Mean Platelet Volume 12.0 fL Neutrophils (%) (Auto) 52.3 % Lymphocytes (%) (Auto) 27.5 % Monocytes (%) (Auto) 16.8 % Eosinophils (%) (Auto) 2.1 % Basophils (%) (Auto) 0.4 % Neutrophils # (Auto) 5.03 K/uL Lymphocytes # (Auto) 2.64 K/uL Monocytes # (Auto) 1.61 K/uL Eosinophils # (Auto) 0.20 K/uL Basophils # (Auto) 0.04 K/uL RDW Standard Deviation 38.7 fL RDW Coefficient of Variation 13.5 % Immature Granulocyte % (Auto) 0.9 % Immature Granulocyte # (Auto) 0.09 K/uL Erythrocyte Sedimentation Rate 60 mm/hr Prothrombin Time 11.2 SECONDS Prothromb Time International Ratio 1.0 Activated Partial Thromboplast Time 25.9 SECONDS Partial Thromboplastin Ratio 1.0 Sodium Level 136 mmol/L Potassium Level 4.1 mmol/L Chloride Level 101 mmol/L Carbon Dioxide Level 25 mmol/L Anion Gap 10.0 mmol/L Blood Urea Nitrogen 80 mg/dl Creatinine 3.62 mg/dl Est Creatinine Clear Calc Drug Dose 23.9 ml/min Estimated GFR () 18.7 Estimated GFR (Non- 16.1 BUN/Creatinine Ratio 22.2 Random Glucose 52 mg/dl Calcium Level 9.0 mg/dl Phosphorus Level 4.2 mg/dl Magnesium Level 2.2 mg/dl Total Bilirubin 0.1 mg/dl Aspartate Amino Transf (AST/SGOT) 21 U/L Alanine Aminotransferase (ALT/SGPT) 22 U/L Alkaline Phosphatase 120 U/L Total Creatine Kinase 95 U/L Creatine Kinase MB 1.1 ng/ml Creatine Kinase MB Ratio 1.2 Troponin I < 0.015 ng/ml C-Reactive Protein 10.70 mg/dl Pro-B-Type Natriuretic Peptide 6992 pg/ml Total Protein 8.4 gm/dl Albumin 3.1 gm/dl Globulin 5.3 gm/dl Albumin/Globulin Ratio 0.6 Lipase 104 U/L Bedside Lactic Acid Venous 1.56 mmol/L Test 02/12/17 20:25 02/12/17 20:32 02/12/17 22:22 02/13/17 04:06 Urine Color YELLOW Urine Appearance CLEAR Urine pH 5.0 Urine Specific [place] 1.022 Urine Protein 2+ Urine Glucose (UA) NEG Urine Ketones NEG Urine Occult Blood TRACE Urine Nitrite NEG Urine Bilirubin NEG Urine Urobilinogen NEG Urine Leukocyte Esterase NEG Urine WBC (Auto) 1-5 /hpf Urine RBC (Auto) 5-10 /hpf Urine Hyaline Casts (Auto) 0 /lpf Urine Epithelial Cells (Auto) 0-5 /lpf Urine Bacteria (Auto) NEG Bedside Glucose 46 mg/dl 251 mg/dl 263 mg/dl Test 02/13/17 06:15 02/13/17 08:07 02/13/17 11:10 02/13/17 11:19 White Blood Count 7.50 K/uL Red Blood Count 3.35 M/uL Hemoglobin 8.6 g/dL Hematocrit 26.5 % Mean Corpuscular Volume 79.1 fL Mean Corpuscular Hemoglobin 25.7 pg Mean Corpuscular Hemoglobin Concent 32.5 g/dl RDW Standard Deviation 38.4 fL RDW Coefficient of Variation 13.4 % Platelet Count 223 K/uL Mean Platelet Volume 12.2 fL Sodium Level 133 mmol/L Potassium Level 5.1 mmol/L Chloride Level 99 mmol/L Carbon Dioxide Level 23 mmol/L Anion Gap 11.0 mmol/L Blood Urea Nitrogen 77 mg/dl Creatinine 3.45 mg/dl Est Creatinine Clear Calc Drug Dose 24.6 ml/min Estimated GFR () 19.8 Estimated GFR (Non- 17.1 BUN/Creatinine Ratio 22.4 Random Glucose 271 mg/dl Calcium Level 8.7 mg/dl Bedside Glucose 331 mg/dl 456 mg/dl Influenza Type A (RT-PCR) Neg for Influ A Influenza Type B (RT-PCR) Neg for Influ B Test 02/13/17 14:03 Bedside Glucose 429 mg/dl Date/Time Source Procedure Growth Status 02/12/17 17:40 Blood Blood Culture Pending Received 02/12/17 17:35 Blood Blood Culture Pending Received Assessment & Plan ACUTE BRONCHITIS, POSSIBLE ASTHMA EXACERBATION Pt had +rhinovirus at [facility] last week & negative influenza. Continued cough and SOB. Negative CXR here. Afebrile. No leukocytosis - blood cultures negative CXR: no signs of pneumonia Flu PCR: negative - start Nebs q6h, Prednisone 20mg daily, Doxycycline 100mg BID, Mucinex. PRN Tessalon pearls monitor DM 2 -A1C: 7.0 on 01/06/17 - hypoglycemic at home, hyperglycemic now - Pharmacy consulted, appreciate the recommendations presently, Insulin drip to be started until BSGs improved CKD STAGE IV progressive worsening renal failure. Pt had fistula placed 12/2016. Not on dialysis currently. - Nephro consulted, appreciate the recommendations crea stable Prolonged QT repeat EKG in AM PANCREATIC CANCER -continue affinitor HX DIASTOLIC HF No signs of vol overload at this time. ECHO: 12/2016 EF: 55-60% -continue torsemide HTN Pt recently taken off amlodipine and taken off metoprolol -Continue to monitor HYPERLIPIDEMIA -continue zocor -Lipids on 01/06/17: Total chol: 213, LDL: 37, HDL: 36, Triglycerides:213 ANEMIA At baseline. Probable anemia of chronic kidney disease. no active bleeding. denies melena - Procrit ordered DEPRESSION - hold Celexa due to prolonged QT monitor EKG DVT PROPHYLAXIS -Heparin SQ DISPOSITION pending anticipate d/c home when medically stable Current Inpatient Medications: Current Inpatient Medications Medications (Trade) Dose Ordered Sig/Adán Route Start Time Stop Time Status Last Admin Dose Admin Acetaminophen (Tylenol Tab) 650 mg Q4H PRN PO 02/12/17 22:45 03/14/17 22:44 02/13/17 09:55 650 MG Heparin Sodium (Porcine) (Heparin Sq 5000 Unit/0.5ml) 5,000 unit Q8H SQ 02/13/17 06:00 03/15/17 05:59 02/13/17 13:04 5,000 UNIT Albuterol/ Ipratropium (Duoneb) 3 ml Q4H PRN INH 02/12/17 22:45 03/14/17 22:44 02/12/17 23:53 3 ML Insulin Aspart (novoLOG ASPART) SLIDING SCALE If C... ACHS SC 02/13/17 06:30 03/15/17 06:59 02/13/17 13:04 20 UNITS Glucose (Glucose 40% Gel) 15-30 GRAMS 15 GRAMS... UD PRN PO 02/12/17 22:45 03/14/17 22:44 Glucose (Glucose Chew Tab) 4-8 Tablets 4 Tabl... UD PRN PO 02/12/17 22:45 03/14/17 22:44 Dextrose (Dextrose 50% 50ML Syringe) 25-50ML OF 50% DW IV FOR... UD PRN IV 02/12/17 22:45 03/14/17 22:44 Glucagon (Glucagon Inj) 1 mg UD PRN SQ 02/12/17 22:45 03/14/17 22:44 Calcitriol (Rocaltrol Cap) 0.25 mcg QAM PO 02/13/17 08:00 03/15/17 08:59 02/13/17 08:18 0.25 MCG Citalopram Hydrobromide (celeXA TAB) 40 mg DAILY PO 02/13/17 08:00 03/15/17 08:59 02/13/17 08:17 40 MG Salmeterol Xinafoate/ Fluticasone (Advair Diskus 250/50 Inh) 1 puff DAILY INH 02/13/17 08:00 03/15/17 08:59 02/13/17 08:18 1 PUFF Gabapentin (Neurontin Cap) 400 mg BID PO 02/13/17 08:00 03/15/17 08:59 02/13/17 08:17 400 MG Meclizine HCl (Antivert Tab) 25 mg TID PRN PO 02/12/17 23:00 03/14/17 22:59 Ranitidine HCl (zANTac TAB) 150 mg QPM PO 02/13/17 21:00 03/15/17 20:59 Simvastatin (Zocor Tab) 20 mg QPM PO 02/13/17 21:00 03/15/17 20:59 Torsemide (Demadex Tab) 60 mg DAILY PO 02/13/17 08:00 03/15/17 08:59 02/13/17 08:17 60 MG Sevelamer HCl (Renagel Tab) 800 mg TIDM PO 02/13/17 08:00 03/15/17 07:59 02/13/17 11:47 800 MG Hydralazine HCl (HydrALAZINE INJ) 10 mg Q6 PRN IV. 02/12/17 23:45 03/14/17 23:44 Everolimus (Afinitor) 10 mg DAILY PO 02/13/17 08:00 03/15/17 07:59 02/13/17 08:19 10 MG Miscellaneous Information (Consult Glycemic Management Pharmacy) 1 ea UD PRN N/A 02/13/17 08:26 03/15/17 08:25 Insulin Glargine (Lantus Solostar Pen) SEE PROTOCOL TEXT BID SC 02/13/17 20:00 03/15/17 19:59
[2017-02-13] MEDS: RANITIDINE HCL 150 MG TAB PO SCH (20:38)
[2017-02-13] MEDS: GUAIFENESIN 600 MG TABCR PO SCH (20:39)
[2017-02-13] MEDS: SIMVASTATIN 20 MG TAB PO SCH (20:39)
[2017-02-14] VITALS (9 sets, daily range): BP systolic 120–154; BP diastolic 60–78; PULSE 80–96; TEMP 36.5–36.9; O2SAT 95–100
[2017-02-14] MEDS: IPRATROPIUM BROMIDE NEB SOLN 0.02% 2.5 ML VIAL INH SCH ×4 (02:00→18:56)
[2017-02-14] MEDS: LEVALBUTEROL 0.63MG/3 ML NEB INH SCH ×4 (02:00→18:57)
[2017-02-14] MEDS: DOXYCYCLINE HYCLATE 100 MG CAP PO SCH ×2 (06:11→18:50)
[2017-02-14] MEDS: HEPARIN SOD 5000 UNIT/0.5 ML CARP SQ SCH ×3 (06:12→21:52)
[2017-02-14] MEDS ORDERED: INSULIN GLARGINE SOLOSTAR 100 UNITS/ML 3 ML PEN SC SCH (08:00)
[2017-02-14] MEDS: CALCITRIOL 0.25 MCG CAP PO SCH (08:00)
[2017-02-14] MEDS: GABAPENTIN 400 MG CAP PO SCH ×2 (08:00→19:53)
[2017-02-14] MEDS: SEVELAMER HYDROCH 800 MG TAB PO SCH ×3 (08:01→16:41)
[2017-02-14] MEDS: FLUTICASONE/SALMETEROL 250/50 (ADVAIR) 14 PUFF/1 INHALER INH SCH (08:02)
[2017-02-14] MEDS: TORSEMIDE 20 MG TAB PO SCH (08:03)
[2017-02-14] MEDS: GUAIFENESIN 600 MG TABCR PO SCH ×2 (08:03→19:53)
[2017-02-14] MEDS: EVEROLIMUS 10 MG PO SCH (08:22)
[2017-02-14] MEDS: INSULIN ASPART 100 UNITS/ML 3 ML PEN SC SCH ×4 (08:22→21:51)
[2017-02-14] MEDS: INSULIN REGULAR 250 UNITS in SODIUM CHLORIDE 0.9% 250ML 250 ML IV SCH ×13 (09:09→22:30)
[2017-02-14] MEDS ORDERED: INSULIN GLARGINE SOLOSTAR 100 UNITS/ML 3 ML PEN SC ONE (11:30)
--- NOTE | 2017-02-14 12:47 | Pharmacy Progress Note ---
Glycemic Control Progress Note Date of Service Feb 14, 2017. Scope Glycemic Pharmacist consulted for glycemic control to write orders per [facility] inpatient glycemic control protocol. Objective Accuchecks BSG (last 24hrs): Test 02/13/17 14:03 02/13/17 15:20 02/13/17 16:19 02/13/17 17:22 Bedside Glucose 429 mg/dl (70-99) 341 mg/dl (70-99) 305 mg/dl (70-99) 220 mg/dl (70-99) Test 02/13/17 18:23 02/13/17 19:20 02/13/17 20:17 02/13/17 21:21 Bedside Glucose 252 mg/dl (70-99) 291 mg/dl (70-99) 255 mg/dl (70-99) 259 mg/dl (70-99) Test 02/13/17 22:27 02/13/17 23:26 02/14/17 00:18 02/14/17 01:23 Bedside Glucose 268 mg/dl (70-99) 267 mg/dl (70-99) 217 mg/dl (70-99) 208 mg/dl (70-99) Test 02/14/17 02:23 02/14/17 03:34 02/14/17 04:08 02/14/17 04:25 Bedside Glucose 164 mg/dl (70-99) 130 mg/dl (70-99) 126 mg/dl (70-99) 128 mg/dl (70-99) Test 02/14/17 04:43 02/14/17 05:02 02/14/17 06:03 02/14/17 07:03 Bedside Glucose 125 mg/dl (70-99) 146 mg/dl (70-99) 136 mg/dl (70-99) 138 mg/dl (70-99) Test 02/14/17 07:59 02/14/17 08:59 02/14/17 10:13 02/14/17 11:15 Bedside Glucose 133 mg/dl (70-99) 272 mg/dl (70-99) 282 mg/dl (70-99) 297 mg/dl (70-99) Recent Pertinent Medications Outpatient Anti-diabetic Regimen: * Lantus 55 units qAM (patient has only been taking 30 units recently) * Humalog 18-40 units TID with meals per sliding scale * BSGs ranging from 30s-500s at home * A1c = 7 % 01/06/17 The patient is currently receiving: * Insulin infusion at an average of 2.2 units/hr overnight, carb ratio as per insulin drip calculator * Lantus 20 units BID Risk Factors for Insulin Resistance: * Steroids: prednisone 20 mg po daily * Diet: renal/ type 2 diabetes Assessment & Plan ASSESSMENT: * Between IV and SQ insulin, the patient has received at least 130 units of insulin in the past 24 hours * I would like to try to get the patient off the drip today, so will give additional Lantus now and increase the BID dose - do not want to be too aggressive since steroids mainly affect postprandial BSGs * I had ordered a set carb ratio with the insulin infusion this AM but it was missed by the nurse so his BSG increased after breakfast. A set carb ratio will be started with lunch today. PLAN FOR INPATIENT GLYCEMIC CONTROL: * Give an extra 10 units of Lantus x 1 now * Increase Lantus to 25 units BID (~40% of est TDD) * Continue insulin infusion, goal range 100-180 mg/dL * Use a set carb ratio of 1 unit per 4 gm CHO consumed * If insulin drip held or decreased to 1 unit/hr or less, can d/c drip * I will place a pending order for Novolog ACHS orders should the drip be d/c'd * Goal 120-160 * CF 10 * CR 4 Thank you.
[2017-02-14 15:35] LABS: BASO % 0.3 %; BASO ABS # 0.02 K/uL (0-0.2); COMPLETE YES; HEMATOCRIT 28.7 % (42-52); IG% 1.3 %; LYMPH % 8.9 %; LYMPH ABS # 0.64 K/uL (1.2-3.4); MEAN CORPUSCULAR HEMOGLOBIN 26.1 pg (25-34); MEAN CORPUSCULAR HGB CONC 33.4 g/dl (32-36); MEAN PLATELET VOLUME 11.9 fL (7.4-10.4); MONO % 3.2 %; NEUT % 86.3 %; PLATELET COUNT 283 K/uL (130-400); RED BLOOD COUNT 3.68 M/uL (4.7-6.1); WHITE BLOOD COUNT 7.17 K/uL (4.8-10.8)
[2017-02-14 15:53] LABS: CREATININE 3.74 mg/dl (0.60-1.40); POTASSIUM 4.3 mmol/L (3.5-5.1)
--- NOTE | 2017-02-14 18:06 | Progress Note ---
Medicine Progress Note Date & Time of Visit: Feb 14, 2017 at 17:58. Subjective patient seen resting in bedside chair, comfortable states he feels improved compared to yesterday breathing is starting to improve still has dry cough denies chest pain Objective Last 8 Hrs Date Time Temp Pulse Resp B/P (MAP) Pulse Ox O2 Delivery O2 Flow Rate FiO2 02/14/17 15:32 36.6 90 18 154/78 (103) 97 Room Air 02/14/17 14:00 93 17 98 Room Air Physical Exam: General- oriented x 3, not in distress, speaks in sentences with no effort Eyes- EOMI, anicteric Neck- supple, no JVD Lungs- clear breath sounds bilaterally, no rales/wheezes Heart- regular rhythm; no murmur, normal rate Abdomen- normal bowel sounds, soft, nontender Extremities- no pretibial edema, no calf tenderness; peripheral pulses intact Neuro- alert, oriented x 3;no gross focal deficits Skin- warm & dry Laboratory Results: Last 24 Hours Test 02/13/17 18:23 02/13/17 19:20 02/13/17 20:17 02/13/17 21:21 Bedside Glucose 252 mg/dl 291 mg/dl 255 mg/dl 259 mg/dl Test 02/13/17 22:27 02/13/17 23:26 02/14/17 00:18 02/14/17 01:23 Bedside Glucose 268 mg/dl 267 mg/dl 217 mg/dl 208 mg/dl Test 02/14/17 02:23 02/14/17 03:34 02/14/17 04:08 02/14/17 04:25 Bedside Glucose 164 mg/dl 130 mg/dl 126 mg/dl 128 mg/dl Test 02/14/17 04:43 02/14/17 05:02 02/14/17 06:03 02/14/17 07:03 Bedside Glucose 125 mg/dl 146 mg/dl 136 mg/dl 138 mg/dl Test 02/14/17 07:59 02/14/17 08:59 02/14/17 10:13 02/14/17 11:15 Bedside Glucose 133 mg/dl 272 mg/dl 282 mg/dl 297 mg/dl Test 02/14/17 12:22 02/14/17 13:24 02/14/17 14:16 02/14/17 15:23 Bedside Glucose 218 mg/dl 268 mg/dl 291 mg/dl White Blood Count 7.17 K/uL Red Blood Count 3.68 M/uL Hemoglobin 9.6 g/dL Hematocrit 28.7 % Mean Corpuscular Volume 78.0 fL Mean Corpuscular Hemoglobin 26.1 pg Mean Corpuscular Hemoglobin Concent 33.4 g/dl Platelet Count 283 K/uL Mean Platelet Volume 11.9 fL Neutrophils (%) (Auto) 86.3 % Lymphocytes (%) (Auto) 8.9 % Monocytes (%) (Auto) 3.2 % Eosinophils (%) (Auto) 0.0 % Basophils (%) (Auto) 0.3 % Neutrophils # (Auto) 6.19 K/uL Lymphocytes # (Auto) 0.64 K/uL Monocytes # (Auto) 0.23 K/uL Eosinophils # (Auto) 0.00 K/uL Basophils # (Auto) 0.02 K/uL RDW Standard Deviation 37.8 fL RDW Coefficient of Variation 13.3 % Immature Granulocyte % (Auto) 1.3 % Immature Granulocyte # (Auto) 0.09 K/uL Sodium Level 132 mmol/L Potassium Level 4.3 mmol/L Chloride Level 96 mmol/L Carbon Dioxide Level 24 mmol/L Anion Gap 12.0 mmol/L Blood Urea Nitrogen 94 mg/dl Creatinine 3.74 mg/dl Est Creatinine Clear Calc Drug Dose 22.7 ml/min Estimated GFR () 18.0 Estimated GFR (Non- 15.5 BUN/Creatinine Ratio 25.0 Random Glucose 202 mg/dl Calcium Level 9.0 mg/dl Test 02/14/17 15:27 02/14/17 16:16 Bedside Glucose 222 mg/dl 180 mg/dl Assessment & Plan ACUTE BRONCHITIS, POSSIBLE ASTHMA EXACERBATION - Pt had +rhinovirus at [facility] last week & negative influenza. Continued cough and SOB. Negative CXR here. Afebrile. No leukocytosis - blood cultures negative CXR: no signs of pneumonia Flu PCR: negative - started Nebs q6h, Prednisone 20mg daily, Doxycycline 100mg BID, Mucinex. PRN Tessalon pearls improving - discussed with patient's oncologist Dr. Huynh recommend to HOLD everolimus for now - monitor DM 2 -A1C: 7.0 on 01/06/17 - hypoglycemic at home, hyperglycemic now - Pharmacy consulted, appreciate the recommendations Insulin Lantus BID and Insulin drip ordered ISS CKD STAGE IV - progressive worsening renal failure. Pt had fistula placed 12/2016. Not on dialysis currently. - Nephro consulted, appreciate the recommendations crea 3.7 today, will monitor Prolonged QT improving 511 --> 505 PANCREATIC CANCER -- - discussed with patient's oncologist Dr. Huynh recommend to HOLD everolimus for now HX DIASTOLIC HF No signs of vol overload at this time. ECHO: 12/2016 EF: 55-60% -continue torsemide HTN Pt recently taken off amlodipine and taken off metoprolol -- resume Amlodipine monitor BP HYPERLIPIDEMIA -continue zocor -Lipids on 01/06/17: Total chol: 213, LDL: 37, HDL: 36, Triglycerides:213 ANEMIA At baseline. Probable anemia of chronic kidney disease. no active bleeding. denies melena - Procrit ordered DEPRESSION - hold Celexa due to prolonged QT QT improved to 505 monitor DVT PROPHYLAXIS -Heparin SQ DISPOSITION pending anticipate d/c home when medically stable Current Inpatient Medications: Current Inpatient Medications Medications (Trade) Dose Ordered Sig/Adán Route Start Time Stop Time Status Last Admin Dose Admin Acetaminophen (Tylenol Tab) 650 mg Q4H PRN PO 02/12/17 22:45 03/14/17 22:44 02/13/17 09:55 650 MG Heparin Sodium (Porcine) (Heparin Sq 5000 Unit/0.5ml) 5,000 unit Q8H SQ 02/13/17 06:00 03/15/17 05:59 02/14/17 13:28 5,000 UNIT Albuterol/ Ipratropium (Duoneb) 3 ml Q4H PRN INH 02/12/17 22:45 03/14/17 22:44 02/12/17 23:53 3 ML Glucose (Glucose 40% Gel) 15-30 GRAMS 15 GRAMS... UD PRN PO 02/12/17 22:45 03/14/17 22:44 Glucose (Glucose Chew Tab) 4-8 Tablets 4 Tabl... UD PRN PO 02/12/17 22:45 03/14/17 22:44 Dextrose (Dextrose 50% 50ML Syringe) 25-50ML OF 50% DW IV FOR... UD PRN IV 02/12/17 22:45 03/14/17 22:44 Glucagon (Glucagon Inj) 1 mg UD PRN SQ 02/12/17 22:45 03/14/17 22:44 Calcitriol (Rocaltrol Cap) 0.25 mcg QAM PO 02/13/17 08:00 03/15/17 08:59 02/14/17 08:00 0.25 MCG Salmeterol Xinafoate/ Fluticasone (Advair Diskus 250/50 Inh) 1 puff DAILY INH 02/13/17 08:00 03/15/17 08:59 02/14/17 08:02 1 PUFF Gabapentin (Neurontin Cap) 400 mg BID PO 02/13/17 08:00 03/15/17 08:59 02/14/17 08:00 400 MG Meclizine HCl (Antivert Tab) 25 mg TID PRN PO 02/12/17 23:00 03/14/17 22:59 Ranitidine HCl (zANTac TAB) 150 mg QPM PO 02/13/17 21:00 03/15/17 20:59 02/13/17 20:38 150 MG Simvastatin (Zocor Tab) 20 mg QPM PO 02/13/17 21:00 03/15/17 20:59 02/13/17 20:39 20 MG Torsemide (Demadex Tab) 60 mg DAILY PO 02/13/17 08:00 03/15/17 08:59 02/14/17 08:03 60 MG Sevelamer HCl (Renagel Tab) 800 mg TIDM PO 02/13/17 08:00 03/15/17 07:59 02/14/17 16:41 800 MG Hydralazine HCl (HydrALAZINE INJ) 10 mg Q6 PRN IV. 02/12/17 23:45 03/14/17 23:44 Miscellaneous Information (Consult Glycemic Management Pharmacy) 1 ea UD PRN N/A 02/13/17 08:26 03/15/17 08:25 Insulin Human Regular 250 units/ Sodium Chloride 252.5 ml @ 0 mls/hr Q24H IV 02/13/17 15:00 03/15/17 14:59 02/14/17 17:48 5 MLS/HR Insulin Aspart (novoLOG ASPART) SLIDING SCALE PCHS SC 02/13/17 18:00 03/15/17 17:59 02/14/17 12:32 17 UNITS Prednisone (PredniSONE TAB) 20 mg DAILY PO 02/14/17 08:00 03/16/17 07:59 02/14/17 08:02 20 MG Doxycycline Hyclate (Vibramycin Cap) 100 mg Q12@0600,1800 PO 02/13/17 16:00 02/20/17 15:59 02/14/17 06:11 100 MG Guaifenesin (Mucinex Contr Rel Tab) 600 mg Q12 PO 02/13/17 21:00 03/15/17 20:59 02/14/17 08:03 600 MG Benzonatate (Tessalon Perles Cap) 100 mg TID PRN PO 02/13/17 15:15 03/15/17 15:14 Ipratropium [place] (Atrovent 0.02% 0.5MG/2.5ML Neb) 0.5 mg Q6R INH 02/13/17 15:00 03/15/17 14:59 02/14/17 14:00 0.5 MG Levalbuterol (Xopenex 0.63 Mg/ 3 Ml Neb) 0.63 mg Q6R INH 02/13/17 15:00 03/15/17 14:59 02/14/17 14:00 0.63 MG Insulin Glargine (Lantus Solostar Pen) 25 units BID SQ 02/14/17 20:00 03/16/17 19:59 Miscellaneous Information (Pending Order) 1 ea QS N/A 02/14/17 16:00 03/16/17 15:59
[2017-02-14] MEDS: INSULIN GLARGINE SOLOSTAR 100 UNITS/ML 3 ML PEN SQ SCH (19:52)
[2017-02-14] MEDS: RANITIDINE HCL 150 MG TAB PO SCH (19:53)
[2017-02-14] MEDS: SIMVASTATIN 20 MG TAB PO SCH (19:53)
[2017-02-15] VITALS (11 sets, daily range): BP systolic 130–160; BP diastolic 60–76; PULSE 82–101; TEMP 36.4–36.7; O2SAT 95–98
[2017-02-15] MEDS: IPRATROPIUM BROMIDE NEB SOLN 0.02% 2.5 ML VIAL INH SCH ×3 (02:04→18:54)
[2017-02-15] MEDS: LEVALBUTEROL 0.63MG/3 ML NEB INH SCH ×3 (02:04→18:54)
[2017-02-15] MEDS: DOXYCYCLINE HYCLATE 100 MG CAP PO SCH ×2 (06:00→17:13)
[2017-02-15] MEDS: HEPARIN SOD 5000 UNIT/0.5 ML CARP SQ SCH ×3 (06:02→21:01)
[2017-02-15] MEDS: TORSEMIDE 20 MG TAB PO SCH (08:14)
[2017-02-15] MEDS: FLUTICASONE/SALMETEROL 250/50 (ADVAIR) 14 PUFF/1 INHALER INH SCH (08:14)
[2017-02-15] MEDS: CALCITRIOL 0.25 MCG CAP PO SCH (08:14)
[2017-02-15] MEDS: SEVELAMER HYDROCH 800 MG TAB PO SCH ×3 (08:14→17:13)
[2017-02-15] MEDS: GUAIFENESIN 600 MG TABCR PO SCH ×2 (08:14→20:34)
[2017-02-15] MEDS: AMLODIPINE BESYLATE 5 MG TAB PO SCH (08:15)
[2017-02-15] MEDS: GABAPENTIN 400 MG CAP PO SCH ×2 (08:15→20:34)
[2017-02-15] MEDS: INSULIN GLARGINE SOLOSTAR 100 UNITS/ML 3 ML PEN SQ SCH ×2 (08:21→21:00)
[2017-02-15] MEDS: INSULIN ASPART 100 UNITS/ML 3 ML PEN SC SCH ×4 (08:23→21:00)
--- NOTE | 2017-02-15 11:17 | Pharmacy Progress Note ---
Glycemic Control Progress Note Date of Service Feb 15, 2017. Scope Glycemic Pharmacist consulted for glycemic control to write orders per [facility] inpatient glycemic control protocol. Objective Accuchecks BSG (last 24hrs): Test 02/14/17 11:15 02/14/17 12:22 02/14/17 13:24 02/14/17 14:16 Bedside Glucose 297 mg/dl (70-99) 218 mg/dl (70-99) 268 mg/dl (70-99) 291 mg/dl (70-99) Test 02/14/17 15:23 02/14/17 15:27 02/14/17 16:16 02/14/17 17:44 Random Glucose 202 mg/dl (70-99) Bedside Glucose 222 mg/dl (70-99) 180 mg/dl (70-99) 212 mg/dl (70-99) Test 02/14/17 18:39 02/14/17 19:45 02/14/17 20:28 02/14/17 21:26 Bedside Glucose 349 mg/dl (70-99) 227 mg/dl (70-99) 205 mg/dl (70-99) 172 mg/dl (70-99) Test 02/14/17 22:25 02/14/17 23:28 02/15/17 00:25 02/15/17 01:06 Bedside Glucose 141 mg/dl (70-99) 123 mg/dl (70-99) 116 mg/dl (70-99) 87 mg/dl (70-99) Test 02/15/17 02:58 02/15/17 05:59 02/15/17 07:45 Bedside Glucose 92 mg/dl (70-99) 120 mg/dl (70-99) 132 mg/dl (70-99) Recent Pertinent Medications Outpatient Anti-diabetic Regimen: * Lantus 55 units qAM (patient has only been taking 30 units recently) * Humalog 18-40 units TID with meals per sliding scale * BSGs ranging from 30s-500s at home * A1c = 7 % 01/06/17 The patient is currently receiving: * Lantus 25 units BID * Novolog ACHS * Goal 120-160 * CF 10 * CR 3 * Insulin drip stopped at 0100 Risk Factors for Insulin Resistance: * Steroids: prednisone 20 mg po daily * Diet: renal/ type 2 diabetes * Infection Outpatient Anti-Diabetic Meds * Lantus 55 units qAM (patient has only been taking 30 units recently) * Humalog 18-40 units TID with meals per sliding scale * BSGs ranging from 30s-500s at home * A1c = 7 % 01/06/17 Assessment & Plan ASSESSMENT: * Mr. Murillo received an ave of 150-180 units of insulin yesterday between IV and SQ insulin * The insulin infusion was d/c'd at 0100 this AM as per orders to d/c when drip was held * He remains on once daily prednisone and his postprandial BSGs are significantly affected by this * Will plan to tighten the CR further and continue the same dose of basal for now, as this is ~30% of est TDD. Do not want to be overly aggressive with this , especially in light of severe hypoglycemia episodes on admission. PLAN FOR INPATIENT GLYCEMIC CONTROL: * Continue Lantus 25 units BID * Continue Novolog ACHS * Goal 120-160 * CF 10 * TIGHTEN CR to 3 Thank you.
--- NOTE | 2017-02-15 19:08 | Progress Note ---
Medicine Progress Note Date & Time of Visit: Feb 15, 2017 at 19:02. Subjective seen resting in bed, comfortable states he feels improved daily less cough and dyspnea denies other symptoms Objective Last 8 Hrs Date Time Temp Pulse Resp B/P (MAP) Pulse Ox O2 Delivery O2 Flow Rate FiO2 02/15/17 18:56 97 16 97 Room Air 02/15/17 16:00 95 Room Air 02/15/17 15:36 36.6 91 18 135/60 (85) 95 Room Air 02/15/17 14:14 84 16 97 Room Air 02/15/17 11:14 101 98 Physical Exam: General- oriented x 3, not in distress, speaks in sentences with no effort Eyes- anicteric Neck- no JVD Lungs- clear breath sounds bilaterally, no wheezing, no crackles Heart- regular rhythm; no murmur, normal rate Abdomen- normal bowel sounds, soft, nontender Extremities- no pretibial edema, no calf tenderness Neuro- alert, oriented x 3;no gross focal deficits Skin- warm & dry Laboratory Results: Last 24 Hours Test 02/14/17 19:45 02/14/17 20:28 02/14/17 21:26 02/14/17 22:25 Bedside Glucose 227 mg/dl 205 mg/dl 172 mg/dl 141 mg/dl Test 02/14/17 23:28 02/15/17 00:25 02/15/17 01:06 02/15/17 02:58 Bedside Glucose 123 mg/dl 116 mg/dl 87 mg/dl 92 mg/dl Test 02/15/17 05:59 02/15/17 07:45 02/15/17 11:47 02/15/17 16:26 Bedside Glucose 120 mg/dl 132 mg/dl 243 mg/dl 207 mg/dl Assessment & Plan ACUTE BRONCHITIS, POSSIBLE ASTHMA EXACERBATION - Pt had +rhinovirus at [facility] last week & negative influenza. Continued cough and SOB. Negative CXR here. Afebrile. No leukocytosis - blood cultures: negative CXR: no signs of pneumonia Flu PCR: negative - started Nebs q6h, Prednisone 20mg daily, Doxycycline 100mg BID, Mucinex. PRN Tessalon pearls improving - discussed with patient's oncologist Dr. Huynh recommend to HOLD everolimus for now -- plan to taper Prednisone 10mg po daily tomorrow possible d/c tomorrow DM 2 -A1C: 7.0 on 01/06/17 - hypoglycemic at home, hyperglycemic in the hospital - Pharmacy consulted, appreciate the recommendations Insulin drip discontinued, now on Insulin Lantus BID ISS CKD STAGE IV - progressive worsening renal failure. Pt had fistula placed 12/2016. Not on dialysis currently. - Nephro consulted, appreciate the recommendations crea 3.7 , monitor Prolonged QT improving 511 --> 505 PANCREATIC CANCER -- - discussed with patient's oncologist Dr. Huynh recommend to HOLD everolimus for now HX DIASTOLIC HF No signs of vol overload at this time. ECHO: 12/2016 EF: 55-60% -continue torsemide HTN Pt recently taken off amlodipine and taken off metoprolol -- resumed Amlodipine monitor BP, improving HYPERLIPIDEMIA -continue zocor -Lipids on 01/06/17: Total chol: 213, LDL: 37, HDL: 36, Triglycerides:213 ANEMIA At baseline. Probable anemia of chronic kidney disease. no active bleeding. denies melena - Procrit ordered DEPRESSION - hold Celexa due to prolonged QT QT improved to 505 monitor EKG DVT PROPHYLAXIS -Heparin SQ DISPOSITION pending anticipate d/c home tomorrow Current Inpatient Medications: Current Inpatient Medications Medications (Trade) Dose Ordered Sig/Adán Route Start Time Stop Time Status Last Admin Dose Admin Acetaminophen (Tylenol Tab) 650 mg Q4H PRN PO 02/12/17 22:45 03/14/17 22:44 02/13/17 09:55 650 MG Heparin Sodium (Porcine) (Heparin Sq 5000 Unit/0.5ml) 5,000 unit Q8H SQ 02/13/17 06:00 03/15/17 05:59 02/15/17 14:36 5,000 UNIT Albuterol/ Ipratropium (Duoneb) 3 ml Q4H PRN INH 02/12/17 22:45 03/14/17 22:44 02/12/17 23:53 3 ML Glucose (Glucose 40% Gel) 15-30 GRAMS 15 GRAMS... UD PRN PO 02/12/17 22:45 03/14/17 22:44 Glucose (Glucose Chew Tab) 4-8 Tablets 4 Tabl... UD PRN PO 02/12/17 22:45 03/14/17 22:44 Dextrose (Dextrose 50% 50ML Syringe) 25-50ML OF 50% DW IV FOR... UD PRN IV 02/12/17 22:45 03/14/17 22:44 Glucagon (Glucagon Inj) 1 mg UD PRN SQ 02/12/17 22:45 03/14/17 22:44 Calcitriol (Rocaltrol Cap) 0.25 mcg QAM PO 02/13/17 08:00 03/15/17 08:59 02/15/17 08:14 0.25 MCG Salmeterol Xinafoate/ Fluticasone (Advair Diskus 250/50 Inh) 1 puff DAILY INH 02/13/17 08:00 03/15/17 08:59 02/15/17 08:14 1 PUFF Gabapentin (Neurontin Cap) 400 mg BID PO 02/13/17 08:00 03/15/17 08:59 02/15/17 08:15 400 MG Meclizine HCl (Antivert Tab) 25 mg TID PRN PO 02/12/17 23:00 03/14/17 22:59 Ranitidine HCl (zANTac TAB) 150 mg QPM PO 02/13/17 21:00 03/15/17 20:59 02/14/17 19:53 150 MG Simvastatin (Zocor Tab) 20 mg QPM PO 02/13/17 21:00 03/15/17 20:59 02/14/17 19:53 20 MG Torsemide (Demadex Tab) 60 mg DAILY PO 02/13/17 08:00 03/15/17 08:59 02/15/17 08:14 60 MG Sevelamer HCl (Renagel Tab) 800 mg TIDM PO 02/13/17 08:00 03/15/17 07:59 02/15/17 17:13 800 MG Hydralazine HCl (HydrALAZINE INJ) 10 mg Q6 PRN IV. 02/12/17 23:45 03/14/17 23:44 Miscellaneous Information (Consult Glycemic Management Pharmacy) 1 ea UD PRN N/A 02/13/17 08:26 03/15/17 08:25 Prednisone (PredniSONE TAB) 20 mg DAILY PO 02/14/17 08:00 03/16/17 07:59 02/15/17 08:15 20 MG Doxycycline Hyclate (Vibramycin Cap) 100 mg Q12@0600,1800 PO 02/13/17 16:00 02/20/17 15:59 02/15/17 17:13 100 MG Guaifenesin (Mucinex Contr Rel Tab) 600 mg Q12 PO 02/13/17 21:00 03/15/17 20:59 02/15/17 08:14 600 MG Benzonatate (Tessalon Perles Cap) 100 mg TID PRN PO 02/13/17 15:15 03/15/17 15:14 Ipratropium [place] (Atrovent 0.02% 0.5MG/2.5ML Neb) 0.5 mg Q6R INH 02/13/17 15:00 03/15/17 14:59 02/15/17 18:54 0.5 MG Levalbuterol (Xopenex 0.63 Mg/ 3 Ml Neb) 0.63 mg Q6R INH 02/13/17 15:00 03/15/17 14:59 02/15/17 18:54 0.63 MG Insulin Glargine (Lantus Solostar Pen) 25 units BID SQ 02/14/17 20:00 03/16/17 19:59 02/15/17 08:21 25 UNITS Amlodipine Besylate (Norvasc Tab) 5 mg QAM PO 02/15/17 08:00 03/17/17 07:59 02/15/17 08:15 5 MG Insulin Aspart (novoLOG ASPART) SLIDING SCALE ACHS SC 02/15/17 06:30 03/17/17 06:29 02/15/17 18:08 27 UNITS
[2017-02-15] MEDS: RANITIDINE HCL 150 MG TAB PO SCH (20:35)
[2017-02-15] MEDS: SIMVASTATIN 20 MG TAB PO SCH (20:35)
[2017-02-15] MEDS: BENZONATATE 100MG CAP PO PRN (21:25)
[2017-02-16] MEDS: LEVALBUTEROL 0.63MG/3 ML NEB INH SCH ×3 (01:33→14:17)
[2017-02-16] MEDS: IPRATROPIUM BROMIDE NEB SOLN 0.02% 2.5 ML VIAL INH SCH ×3 (01:33→14:17)
[2017-02-16 01:35] VITALS: PULSE 85; O2SAT 96
[2017-02-16] MEDS: HEPARIN SOD 5000 UNIT/0.5 ML CARP SQ SCH ×2 (06:00→14:00)
[2017-02-16] MEDS: DOXYCYCLINE HYCLATE 100 MG CAP PO SCH ×2 (06:10→17:33)
[2017-02-16 06:48] VITALS: PULSE 87; O2SAT 98
[2017-02-16 07:22] VITALS: BP 138/84; PULSE 82; TEMP 36.6; O2SAT 100
[2017-02-16] MEDS: AMLODIPINE BESYLATE 5 MG TAB PO SCH (08:05)
[2017-02-16] MEDS: CALCITRIOL 0.25 MCG CAP PO SCH (08:05)
[2017-02-16] MEDS: SEVELAMER HYDROCH 800 MG TAB PO SCH ×3 (08:06→17:33)
[2017-02-16] MEDS: FLUTICASONE/SALMETEROL 250/50 (ADVAIR) 14 PUFF/1 INHALER INH SCH (08:06)
[2017-02-16] MEDS: GABAPENTIN 400 MG CAP PO SCH (08:06)
[2017-02-16] MEDS: GUAIFENESIN 600 MG TABCR PO SCH (08:06)
[2017-02-16] MEDS: TORSEMIDE 20 MG TAB PO SCH (08:07)
[2017-02-16] MEDS ORDERED: INSULIN GLARGINE SOLOSTAR 100 UNITS/ML 3 ML PEN SQ SCH (08:15)
[2017-02-16] MEDS: INSULIN ASPART 100 UNITS/ML 3 ML PEN SC SCH ×3 (09:13→17:36)
--- NOTE | 2017-02-16 11:33 | Pharmacy Progress Note ---
Pharmacy Glycemic Short Note 2 Date of Service Feb 16, 2017. OUTPATIENT ANTIDIABETIC REGIMEN: * Lantus 55 units qAM (patient has only been taking 30 units recently) * Humalog 18-40 units TID with meals per sliding scale * BSGs ranging from 30s-500s at home * A1c = 7 % 01/06/17 ASSESSMENT: * Patient is currently receiving an average of ~100 units of insulin per day * 50 units of basal insulin * 50 units of prandial/correctional insulin * BSGs ranging 74 - 268 over the past 24hrs * Risk factors for insulin resistance are decreasing over the past 24hrs * Steroid dosing decreasing --> prednisone dose lowered from 20mg to 10mg * Infection is being adequately treated/Pt status improving * Anticipating insulin regimen will need decreased for the next 24hrs d/t step down in steroid dosing. * AM Fasting BSG = 74 mg/dl {below goal range} therefore Basal insulin needs decreased * Total daily dose = 100 units --> anticipate total daily dose will need decreased for lower prednisone dose. Will change to total daily dose of ~80 units/day * Loosen CR slightly as steroids have their most profound effect on post- prandial hyperglycemia PLAN FOR INPATIENT GLYCEMIC CONTROL: * Basal insulin: decrease dosing * Lantus 20 units SQ BID * Bolus insulin: "loosen" carb ratio * NovoLog per scale ACHS or Q6hrs while NPO * Goal Range: Low 110 mg/dL - High 140 mg/dL * Correction Factor: 10 mg/dL/unit * Nutritional / Prandial insulin per carb ratio of 1 unit per 3 grams CHO consumed PLAN FOR DISCHARGE: * Basal insulin * Lantus 40 units SQ Daily in the morning * Bolus Insulin NovoLog with meals based on pre-meal blood sugar BSG Units of NovoLog 90-110 16 110-129 17 130-149 18 150-169 19 170-189 20 190-209 21 210-229 22 230-249 23 250-269 24 270-299 25 300-319 26 320-349 27 350-369 28 370+ 29
[2017-02-16] MEDS: BENZONATATE 100MG CAP PO PRN (12:21)
[2017-02-16] MEDS ORDERED: INSULIN GLARGINE SOLOSTAR 100 UNITS/ML 3 ML PEN SQ ONE (12:30)
--- NOTE | 2017-02-16 13:06 | Progress Note ---
Medicine Progress Note Date & Time of Visit: Feb 16, 2017 at 12:57. Subjective patient seen resting in chair, comfortable, in good spirits states he continues to feel improved breathing and cough is improving denies other symptoms Objective Last 8 Hrs Date Time Temp Pulse Resp B/P (MAP) Pulse Ox O2 Delivery O2 Flow Rate FiO2 02/16/17 08:15 Room Air 02/16/17 07:22 36.6 82 16 138/84 (102) 100 Room Air 02/16/17 06:48 87 16 98 Room Air Physical Exam: General- oriented x 3, not in distress, speaks in sentences with no effort Eyes- anicteric Neck- no JVD Lungs- clear breath sounds bilaterally, no wheezes, no rales Heart- regular rhythm; no murmur, normal rate Abdomen- normal bowel sounds, soft, nontender Extremities- no pretibial edema, no calf tenderness Neuro- alert, oriented x 3;no gross focal deficits Skin- warm & dry Laboratory Results: Last 24 Hours Test 02/15/17 16:26 02/15/17 20:18 02/16/17 07:37 02/16/17 11:20 Bedside Glucose 207 mg/dl 268 mg/dl 74 mg/dl 192 mg/dl Assessment & Plan ACUTE BRONCHITIS, POSSIBLE ASTHMA EXACERBATION - Pt had +rhinovirus at [facility] last week & negative influenza. Continued cough and SOB. Negative CXR here. Afebrile. No leukocytosis - blood cultures: negative CXR: no signs of pneumonia Flu PCR: negative - started Nebs q6h, Prednisone 20mg daily, Doxycycline 100mg BID, Mucinex. PRN Tessalon pearls improving - discussed with patient's oncologist Dr. Huynh recommend to HOLD everolimus for now -- d/c today on: Prednisone taper from 10mg Nebs TID Doxycycline x 4 more days DM 2 -A1C: 7.0 on 01/06/17 - hypoglycemic at home, hyperglycemic in the hospital - Pharmacy consulted, appreciate the recommendations Insulin drip discontinued, now on Insulin Lantus BID ISS - pharmacy recommends to decrease Lantus to 40units in AM adjust ISS with AC CKD STAGE IV - progressive worsening renal failure. Pt had fistula placed 12/2016. Not on dialysis currently. - Nephro consulted, appreciate the recommendations crea 3.7 , monitor Prolonged QT improving 511 --> 505--> 531 - Citalopram already held will consult Psych PANCREATIC CANCER -- - discussed with patient's oncologist Dr. Huynh recommend to HOLD everolimus for now HX DIASTOLIC HF No signs of vol overload at this time. ECHO: 12/2016 EF: 55-60% -continue torsemide HTN Pt recently taken off amlodipine and taken off metoprolol -- resumed Amlodipine monitor BP, improving HYPERLIPIDEMIA -continue zocor -Lipids on 01/06/17: Total chol: 213, LDL: 37, HDL: 36, Triglycerides:213 ANEMIA At baseline. Probable anemia of chronic kidney disease. no active bleeding. denies melena - Procrit ordered DEPRESSION - hold Celexa due to prolonged QT - Psych consulted DVT PROPHYLAXIS -Heparin SQ DISPOSITION pending anticipate d/c home after Psych SVC evaluates patient Current Inpatient Medications: Current Inpatient Medications Medications (Trade) Dose Ordered Sig/Adán Route Start Time Stop Time Status Last Admin Dose Admin Acetaminophen (Tylenol Tab) 650 mg Q4H PRN PO 02/12/17 22:45 03/14/17 22:44 02/13/17 09:55 650 MG Heparin Sodium (Porcine) (Heparin Sq 5000 Unit/0.5ml) 5,000 unit Q8H SQ 02/13/17 06:00 03/15/17 05:59 02/15/17 21:01 5,000 UNIT Albuterol/ Ipratropium (Duoneb) 3 ml Q4H PRN INH 02/12/17 22:45 03/14/17 22:44 02/12/17 23:53 3 ML Glucose (Glucose 40% Gel) 15-30 GRAMS 15 GRAMS... UD PRN PO 02/12/17 22:45 03/14/17 22:44 Glucose (Glucose Chew Tab) 4-8 Tablets 4 Tabl... UD PRN PO 02/12/17 22:45 03/14/17 22:44 Dextrose (Dextrose 50% 50ML Syringe) 25-50ML OF 50% DW IV FOR... UD PRN IV 02/12/17 22:45 03/14/17 22:44 Glucagon (Glucagon Inj) 1 mg UD PRN SQ 02/12/17 22:45 03/14/17 22:44 Calcitriol (Rocaltrol Cap) 0.25 mcg QAM PO 02/13/17 08:00 03/15/17 08:59 02/16/17 08:05 0.25 MCG Salmeterol Xinafoate/ Fluticasone (Advair Diskus 250/50 Inh) 1 puff DAILY INH 02/13/17 08:00 03/15/17 08:59 02/16/17 08:06 1 PUFF Gabapentin (Neurontin Cap) 400 mg BID PO 02/13/17 08:00 03/15/17 08:59 02/16/17 08:06 400 MG Meclizine HCl (Antivert Tab) 25 mg TID PRN PO 02/12/17 23:00 03/14/17 22:59 Ranitidine HCl (zANTac TAB) 150 mg QPM PO 02/13/17 21:00 03/15/17 20:59 02/15/17 20:35 150 MG Simvastatin (Zocor Tab) 20 mg QPM PO 02/13/17 21:00 03/15/17 20:59 02/15/17 20:35 20 MG Torsemide (Demadex Tab) 60 mg DAILY PO 02/13/17 08:00 03/15/17 08:59 02/16/17 08:07 60 MG Sevelamer HCl (Renagel Tab) 800 mg TIDM PO 02/13/17 08:00 03/15/17 07:59 02/16/17 12:21 800 MG Hydralazine HCl (HydrALAZINE INJ) 10 mg Q6 PRN IV. 02/12/17 23:45 03/14/17 23:44 Miscellaneous Information (Consult Glycemic Management Pharmacy) 1 ea UD PRN N/A 02/13/17 08:26 03/15/17 08:25 Doxycycline Hyclate (Vibramycin Cap) 100 mg Q12@0600,1800 PO 02/13/17 16:00 02/20/17 15:59 02/16/17 06:10 100 MG Guaifenesin (Mucinex Contr Rel Tab) 600 mg Q12 PO 02/13/17 21:00 03/15/17 20:59 02/16/17 08:06 600 MG Benzonatate (Tessalon Perles Cap) 100 mg TID PRN PO 02/13/17 15:15 03/15/17 15:14 02/16/17 12:21 100 MG Ipratropium [place] (Atrovent 0.02% 0.5MG/2.5ML Neb) 0.5 mg Q6R INH 02/13/17 15:00 03/15/17 14:59 02/16/17 06:48 0.5 MG Levalbuterol (Xopenex 0.63 Mg/ 3 Ml Neb) 0.63 mg Q6R INH 02/13/17 15:00 03/15/17 14:59 02/16/17 06:48 0.63 MG Amlodipine Besylate (Norvasc Tab) 5 mg QAM PO 02/15/17 08:00 03/17/17 07:59 02/16/17 08:05 5 MG Insulin Aspart (novoLOG ASPART) SLIDING SCALE ACHS SC 02/15/17 06:30 03/17/17 06:29 02/16/17 12:28 21 UNITS Prednisone (PredniSONE TAB) 10 mg DAILY PO 02/16/17 08:00 03/16/17 07:59 02/16/17 08:07 10 MG Insulin Glargine (Lantus Solostar Pen) 40 units DAILY SQ 02/17/17 08:00 03/19/17 07:59
[2017-02-16 14:17] VITALS: PULSE 81; O2SAT 98
[2017-02-16 14:28] VITALS: BP 138/84; PULSE 81; TEMP 36.6; O2SAT 98
[2017-02-16] MEDS ORDERED: CITALOPRAM 20 MG TAB PO ONE (14:32)
[2017-02-16 14:43] VITALS: BP 132/63; PULSE 106; TEMP 36.7; O2SAT 98
[2017-02-16 15:40] LABS: BUN/CREATININE RATIO 24.1 (10-20); CALCIUM 9.1 mg/dl (8.5-10.1); CREATININE 4.15 mg/dl (0.60-1.40); MAGNESIUM 2.1 mg/dl (1.8-2.4); POTASSIUM 4.7 mmol/L (3.5-5.1)
--- NOTE | 2017-02-16 16:33 | Nephrology Progress Note ---
Nephrology Progress Note Date of Service: Feb 16, 2017. Subjective 71 yo male with ckd stage 4/5 with creatinine that is trending up in the setting of bronchitis on prednisone and doxycycline. pt also with anemia of ckd on procrit injections. pt is oob to chair and ready to go home. feels very good. Objective Date Time Temp Pulse Resp B/P (MAP) Pulse Ox O2 Delivery O2 Flow Rate FiO2 02/16/17 15:30 Room Air 02/16/17 14:43 36.7 106 18 132/63 (86) 98 Room Air 02/16/17 14:28 36.6 81 16 98 Room Air 02/16/17 14:17 81 16 98 Room Air 02/16/17 08:15 Room Air 02/16/17 07:22 36.6 82 16 138/84 (102) 100 Room Air 02/16/17 06:48 87 16 98 Room Air 02/16/17 01:35 85 16 96 Room Air 02/16/17 00:00 Room Air 02/15/17 23:44 36.5 82 20 130/65 (86) 97 Room Air 02/15/17 20:00 Room Air 02/15/17 18:56 97 16 97 Room Air Physical Exam: General-aaox3 Eyes-no scleral icterus ENT-mmm Neck-supple Lungs-cta Heart-rrr Abdomen-bs+ s/nt/nd Extremities-no c/c/e Neuro-nonfocal Access-good bruit and thrill Current Inpatient Medications Medications (Trade) Dose Ordered Sig/Adán Route Start Time Stop Time Status Last Admin Dose Admin Acetaminophen (Tylenol Tab) 650 mg Q4H PRN PO 02/12/17 22:45 03/14/17 22:44 02/13/17 09:55 650 MG Heparin Sodium (Porcine) (Heparin Sq 5000 Unit/0.5ml) 5,000 unit Q8H SQ 02/13/17 06:00 03/15/17 05:59 02/15/17 21:01 5,000 UNIT Albuterol/ Ipratropium (Duoneb) 3 ml Q4H PRN INH 02/12/17 22:45 03/14/17 22:44 02/12/17 23:53 3 ML Glucose (Glucose 40% Gel) 15-30 GRAMS 15 GRAMS... UD PRN PO 02/12/17 22:45 03/14/17 22:44 Glucose (Glucose Chew Tab) 4-8 Tablets 4 Tabl... UD PRN PO 02/12/17 22:45 03/14/17 22:44 Dextrose (Dextrose 50% 50ML Syringe) 25-50ML OF 50% DW IV FOR... UD PRN IV 02/12/17 22:45 03/14/17 22:44 Glucagon (Glucagon Inj) 1 mg UD PRN SQ 02/12/17 22:45 03/14/17 22:44 Calcitriol (Rocaltrol Cap) 0.25 mcg QAM PO 02/13/17 08:00 03/15/17 08:59 02/16/17 08:05 0.25 MCG Salmeterol Xinafoate/ Fluticasone (Advair Diskus 250/50 Inh) 1 puff DAILY INH 02/13/17 08:00 03/15/17 08:59 02/16/17 08:06 1 PUFF Gabapentin (Neurontin Cap) 400 mg BID PO 02/13/17 08:00 03/15/17 08:59 02/16/17 08:06 400 MG Meclizine HCl (Antivert Tab) 25 mg TID PRN PO 02/12/17 23:00 03/14/17 22:59 Ranitidine HCl (zANTac TAB) 150 mg QPM PO 02/13/17 21:00 03/15/17 20:59 02/15/17 20:35 150 MG Simvastatin (Zocor Tab) 20 mg QPM PO 02/13/17 21:00 03/15/17 20:59 02/15/17 20:35 20 MG Torsemide (Demadex Tab) 60 mg DAILY PO 02/13/17 08:00 03/15/17 08:59 02/16/17 08:07 60 MG Sevelamer HCl (Renagel Tab) 800 mg TIDM PO 02/13/17 08:00 03/15/17 07:59 02/16/17 12:21 800 MG Hydralazine HCl (HydrALAZINE INJ) 10 mg Q6 PRN IV. 02/12/17 23:45 03/14/17 23:44 Miscellaneous Information (Consult Glycemic Management Pharmacy) 1 ea UD PRN N/A 02/13/17 08:26 12/14/17 08:25 Doxycycline Hyclate (Vibramycin Cap) 100 mg Q12@0600,1800 PO 02/13/17 16:00 02/20/17 15:59 02/16/17 06:10 100 MG Guaifenesin (Mucinex Contr Rel Tab) 600 mg Q12 PO 02/13/17 21:00 03/15/17 20:59 02/16/17 08:06 600 MG Benzonatate (Tessalon Perles Cap) 100 mg TID PRN PO 02/13/17 15:15 03/15/17 15:14 02/16/17 12:21 100 MG Ipratropium [place] (Atrovent 0.02% 0.5MG/2.5ML Neb) 0.5 mg Q6R INH 02/13/17 15:00 03/15/17 14:59 02/16/17 14:17 0.5 MG Levalbuterol (Xopenex 0.63 Mg/ 3 Ml Neb) 0.63 mg Q6R INH 02/13/17 15:00 03/15/17 14:59 02/16/17 14:17 0.63 MG Amlodipine Besylate (Norvasc Tab) 5 mg QAM PO 02/15/17 08:00 03/17/17 07:59 02/16/17 08:05 5 MG Insulin Aspart (novoLOG ASPART) SLIDING SCALE ACHS SC 02/15/17 06:30 03/17/17 06:29 02/16/17 12:28 21 UNITS Prednisone (PredniSONE TAB) 10 mg DAILY PO 02/16/17 08:00 03/16/17 07:59 02/16/17 08:07 10 MG Insulin Glargine (Lantus Solostar Pen) 40 units DAILY SQ 02/17/17 08:00 03/19/17 07:59 Citalopram Hydrobromide (celeXA TAB) 20 mg QAM PO 02/17/17 08:00 03/19/17 07:59 Last 24 Hours Test 02/15/17 20:18 02/16/17 07:37 02/16/17 11:20 02/16/17 14:58 Bedside Glucose 268 mg/dl 74 mg/dl 192 mg/dl Sodium Level 133 mmol/L Potassium Level 4.7 mmol/L Chloride Level 96 mmol/L Carbon Dioxide Level 26 mmol/L Anion Gap 11.0 mmol/L Blood Urea Nitrogen 100 mg/dl Creatinine 4.15 mg/dl Est Creatinine Clear Calc Drug Dose 20.5 ml/min Estimated GFR () 15.9 Estimated GFR (Non- 13.7 BUN/Creatinine Ratio 24.1 Random Glucose 179 mg/dl Calcium Level 9.1 mg/dl Magnesium Level 2.1 mg/dl Assessment & Plan perry on ckd stage 4 with a mature access-not uremic. volume status is good. currently on torsemide 60mg a day and to reduce it to 40mg a day and recheck labs by Dr. Huynh on sunday. to follow up with Dr. Dawn in March. if any worsening sob or edema, pt is to go back to 60mg of torsemide a day. Anemia of Renal Failure-hg levels trended up to 9.6 and volume status improved. did get procrit injection on the of 10,000 units sq. .
[2017-02-16] MEDS ORDERED: DXY100 PO (16:50)
[2017-02-16] MEDS ORDERED: NRV5 PO (16:50)
[2017-02-16] MEDS ORDERED: INSDGIPEN SQ (16:50)
[2017-02-16] MEDS ORDERED: BENZ100C7 PO (16:50)
[2017-02-16] MEDS ORDERED: ATRINS INH (16:50)
[2017-02-16] MEDS ORDERED: PRD10 PO (16:50)
[2017-02-16] MEDS ORDERED: GFNSR600 PO (16:50)
[2017-02-16] MEDS ORDERED: CLX20 PO (16:50)
[2017-02-16] MEDS ORDERED: XPNINS INH (16:50)
[2017-02-16] MEDS ORDERED: DMD20 PO (16:50)
[2017-02-16] MEDS ORDERED: INSU100I2 SC (16:50)
--- NOTE | 2017-02-16 16:57 | Discharge Summary ---
Discharge Summary Date of Service Feb 16, 2017. Discharge Summary Admission Date: Feb 12, 2017 at 22:38 Discharge Date: Feb 16, 2017 Discharge Disposition: Home Principal Diagnosis: ACUTE BRONCHITIS, POSSIBLE ASTHMA EXACERBATION Procedures: CHEST ONE VIEW PORTABLE CLINICAL HISTORY: Sepsis. COMPARISON STUDY: Chest CT T and chest radiograph January 05, 2017. FINDINGS: Posterior cervical spine fusion is incidentally noted. No pneumothorax or pleural effusion is present. Mild left basilar opacity favors atelectasis or epicardial fat pad. Prominent vascularity is normal. Cardiomediastinal silhouette is stable. IMPRESSION: No acute cardiopulmonary findings. Pending Studies/Follow-Up: REPEAT EKG ON FOLLOW UP WITH PCP 02/21/17 (RE: CELEXA DOSE DECREASED DUE TO PROLONGED QT INTERVAL). PLEASE REFER TO HOSPITAL COURSE BELOW FOR FURTHER DETAIL.S Medication Reconciliation New Medications: Amlodipine Besylate (Amlodipine Besylate) 5 Mg Tab 5 MG PO QAM for 30 Days, #30 TAB 2 Refills Benzonatate (Benzonatate) 100 Mg Cap 100 MG PO TID PRN for cough for 7 Days, #21 CAP 1 Refill Citalopram (Citalopram Hydrobromide) 20 Mg Tab 20 MG PO QAM for 15 Days, #15 TAB 0 Refills Doxycycline Hyclate (Doxycycline Hyclate) 100 Mg Cap 100 MG PO Q12@0600,1800 for 4 Days, #8 CAP 0 Refills Guaifenesin Ext Rel (Mucinex Ext Rel) 600 Mg Tabcr 600 MG PO Q12 for 4 Days, #8 TAB 1 Refill Insulin Glargine (Lantus Solostar) 100 Unit/Ml Inj 40 UNITS SQ DAILY for 30 Days, #15 PEN 2 Refills Ipratropium [place] (Ipratropium [place]) 0.5 Mg/2.5 Ml Nebu 0.5 MG INH TID for 4 Days, #30 UNITS 2 Refills may also take every 4 hours as needed for shortness of breath/wheezing Levalbuterol (Levalbuterol HCl) 0.63 Mg/3 Ml Nebu 0.63 MG INH TID for 4 Days, #20 UNITS 2 Refills may also take every 4 hours as needed for shortness of breath/wheezing Prednisone (Prednisone) 10 Mg Tab 10 MG PO UD for 3 Days, #2 TAB 0 Refills take 1 tab po daily x 1 day, then take 1/2 tab po daily x 2 days, then STOP Torsemide (Torsemide) 20 Mg Tab 40 MG PO DAILY for 30 Days, #60 TAB 2 Refills Changed Medications: Insulin Lispro (Human) (Humalog Kwikpen) 100 Unit/Ml Inj 1 DOSE SC UD for 30 Days (Changed from: TAKE 18-40 UNITS DEPENDING ON BS THREE TIMES DAILY WITH MEALS. BASED ON SLIDING SCALE) DEPENDING ON BS THREE TIMES DAILY WITH MEALS. BASED ON SLIDING SCALE Continued Medications: Acetaminophen (Tylenol) 325 Mg Tab 650 MG PO Q4H PRN for MILD PAIN, TAB Albuterol Sulfate (Proair Respiclick) 108 Mcg/Act Aer 2 PUFFS INH Q4 PRN for Wheezing Calcitriol (Rocaltrol Cap) 0.25 Mcg Cap 0.25 MCG PO QAM, CAP Epoetin Jamie (Procrit) 10,000 Units Inj WK Ergocalciferol (Vitamin D 43208 Unit) 50,000 Unit Cap 1 TAB PO [id number], CAP EVERY OTHER SUNDAY Fluticasone Prop/Salmeterol (Advair Diskus 250/50 60 Dose) 1 Ea Aerp 1 PUFF INH DAILY, INHALER Gabapentin (Neurontin) 400 Mg Cap 400 MG PO BID, CAP Glucagon (Glucagon Emergency Kit) 1 Mg Kit 1 MG SC UD PRN for HYPOGLYCEMIA PROTOCOL Meclizine HCl (Meclizine 25) 25 Mg Tab 25 MG PO TID PRN for Dizziness or Vertigo Ranitidine Hcl (Zantac) 150 Mg Tab 150 MG PO QPM, TAB Sevelamer Carbonate (Renvela) 800 Mg Tab 800 MG PO TIDM for 90 Days, TAB 3 Refills Simvastatin (Zocor) 20 Mg Tab 20 MG PO QPM, TAB [Octreotide] () 1 DOSE INJ [id number] Discontinued Medications: Citalopram (Citalopram Hydrobromide) 40 Mg Tab 40 MG PO DAILY for 90 Days, #90 TAB 3 Refills Everolimus (Afinitor) 10 Mg Tab 10 MG PO QAM Insulin Glargine (Lantus Solostar) 100 Unit/Ml Inj 55 UNITS SC QAM, PEN Ipratropium-Albuterol (Combivent Respimat) 1 Aer Aer 1 PUFFS INH QID, INH Torsemide (Torsemide) 20 Mg Tab 60 MG PO DAILY, #30 Admission Information HPI (per Admitting provider): Pt is 71 y/o M with PMH pancreatic/liver CA, diastolic HF, CKD, asthma presented to ER with c/o increased weakness, cough. Pt states approx 1.5-2 weeks ago started with tactile fever, dry cough, SOB, weakness. Reports was seen by PCP and given IM steroid and started on Zithromax. Pt states then was admitted to [facility] last week and dx with rhinovirus and no further antibiotics were given. Pt states that he is still feeling generalized weakness and continues with cough. he had been using Robitussin without much relief. Reports that called his catapult and arresting gear officer who instructed to go to ER. Pt reports BS low to 500's. Reports last night in BS 30s and was diaphoretic and confused and states was seen at [facility] ER and d/c home. Pt states that he has been only taking 30 U lantus daily (instead of 50) secondary to the recent hypoglycemia. Hx CKD, follows with Dr Clancy. Had fistula placed end of Dec. States still makes urine, but little amounts since on fluid restrictions recently. He had recent hospitalization here in 12/2016 for diastolic HF. Pt states since he has been on fluid restrictions and has had decreased edema of LE. Pt follows with Dr Arthur Conti in [place] for his pancreatic and liver CA. Denies N/V/D/C, RILEY, dizziness, syncope, vision changes, neck pain, CP, orthopnea, palpitations, hemoptysis, sore throat, choking, otalgia, rhinorrhea, abdominal pain, paresthesias, weakness, extremity weakness, rashes, urinary symptoms. In ER glucose 4 given dextrose, and orange juice and repeat 70, then down to 46 , given another dose dextrose and given crackers, peanut butter. Glucose 251 currently. BP: 152/82, 170/81, Resp: 20, Pulse: 88, O2 96% on RA. No leukocytosis. H/H 12/27 (pt's baseline). CR: 3.6, GFR: 16 (baseline recently). ESR: 60, CRP:10. CXR: negative. EKG: NSR rate 82 Physical Exam (per Admitting): General Appearance: + obese, + pertinent finding (chronically ill appearing. no acute distress) Head: normocephalic, atraumatic Eyes: normal inspection, PERRL, EOMI, sclerae normal ENT: hearing grossly normal, pharynx normal, + pertinent finding (no rhinorrhea) Neck: supple, no JVD, trachea midline Respiratory/Chest: chest non-tender, no respiratory distress, no accessory muscle use, + pertinent finding (+faint scattered wheezing throughout, no rales or rhonchi noted) Cardiovascular: regular rate, rhythm, no murmur Abdomen/GI: normal bowel sounds, non tender, soft Extremities/Musculoskelatal: normal range of motion, non-tender, + pedal edema (1+bilateral LE) Neurologic/Psych: alert, normal mood/affect, oriented x 3 Skin: normal color, warm/dry, no rash Hospital Course ACUTE BRONCHITIS, POSSIBLE ASTHMA EXACERBATION - Pt had +rhinovirus at [facility] last week & negative influenza. Continued cough and SOB. Negative CXR here. Afebrile. No leukocytosis - blood cultures: negative CXR: no signs of pneumonia Flu PCR: negative - started Nebs q6h, Prednisone 20mg daily, Doxycycline 100mg BID, Mucinex. PRN Tessalon pearls improved - discussed with patient's oncologist Dr. Conti recommend to HOLD everolimus for now -- discharge plan: Prednisone taper from 10mg total of 3 more days Nebs TID Doxycycline x 4 more days to complete 7 days total DM 2 -A1C: 7.0 on 01/06/17 - (+) brittle Diabetes, hypoglycemic at home, hyperglycemic in the hospital - Pharmacy consulted, appreciate the recommendations Insulin drip discontinued, transitioned to Insulin Lantus BID ISS - pharmacy recommends to decrease Lantus to 40units in AM adjust Sliding Scale with meals - monitor closely as outpatient CKD STAGE IV - progressive worsening renal failure. Pt had fistula placed 12/2016. Not on dialysis currently. - Nephro consulted- Dr. Villagran crea 3.7 --> 4.15 Dr. Villagran recommends to decrease Torsemide to 40mg po daily monitor crea as outpatient Prolonged QT serial EKGs done, QTc 511 --> 505--> 531 - discussed with Psych SVC Dr. Tran/Psych Liaison Yamila - recommend to lower Citalopram to 20mg po daily repeat EKG on ff up with PCP in the coming week, monitor QTc regularly PANCREATIC CANCER -- - discussed with patient's oncologist Dr. Conti recommend to HOLD everolimus for now until patient ff up on Sunday02/19/17 HX DIASTOLIC HF No signs of vol overload at this time. ECHO: 12/2016 EF: 55-60% -continue torsemide, but dose decreased to 40mg po daily due to elevated crea HTN Pt recently taken off amlodipine and taken off metoprolol -- BP not at goal resumed Amlodipine BP improving, monitor as outpatient HYPERLIPIDEMIA -continue zocor -Lipids on 01/06/17: Total chol: 213, LDL: 37, HDL: 36, Triglycerides:213 ANEMIA At baseline. Probable anemia of chronic kidney disease. no active bleeding. denies melena - Procrit ordered DEPRESSION - held Celexa due to prolonged QT serial EKGs done, QTc 511 --> 505--> 531 - discussed with Psych SVC Dr. Tran/Psych Liaison Yamila - recommend to lower Citalopram to 20mg po daily repeat EKG on ff up with PCP in the coming week, monitor QTc regularly DVT PROPHYLAXIS -Heparin SQ given DISPOSITION d/c home ff up with PCP on 02/21 ff up with Oncologist Dr. Conti 02/19 Total time spent on discharge = This includes examination of the patient, discharge planning, medication reconciliation, and communication with other providers. Discharge Instructions Discharge Instructions Date of Service Feb 16, 2017. Admission Reason for Admission: Bronchitis,Hypoglycemia Discharge Discharge Diagnosis / Problem: ACUTE BRONCHITIS Discharge Goals Goal(s): Diagnostic testing, Therapeutic intervention Activity Recommendations Activity Limitations: as noted below (NO HEAVY EXERTION UNTIL RE-EVALUATED BY PRIMARY CARE PHYSICIAN) . Instructions / Follow-Up Instructions / Follow-Up PLEASE REVIEW YOUR NEW MEDICATION LIST AND FOLLOW INSTRUCTIONS CAREFULLY. FOLLOW THE NEW SLIDING SCALE FOR INSULIN LISPRO: BSG Units of Lispro 90-110 16 110-129 17 130-149 18 150-169 19 170-189 20 190-209 21 210-229 22 230-249 23 250-269 24 270-299 25 300-319 26 320-349 27 [phone] 28 370+ 29 CALL PRIMARY CARE PHYSICIAN OR RETURN TO ER IMMEDIATELY IF WITH WORSENING OF SYMPTOMS. FOLLOW UP WITH DR. SON (PRIMARY CARE PHYSICIAN- [facility]) ON 02/21/17 AT 5:45 PM. FOLLOW UP WITH [employer] SOFTWARE TEST ENGINEER DR. BRIONES AND ONCOLOGIST DR. CONTI SCHEDULED. Current Hospital Diet Patient's current hospital diet: Renal Diet, Diabetes Type 2 Diet Discharge Diet Recommended Diet: Diabetes Type 2 Diet, Renal Diet Procedures Procedures Performed: CHEST XRAY Pending Studies Studies pending at discharge: no Laboratory Results Hemoglobin A1c Test 01/06/17 07:00 Range/Units Estimated Average Glucose 154 mg/dl Hemoglobin A1c 7.0 H 4.5-5.6 % Lipid Panel Test 01/06/17 07:00 Range/Units Triglycerides Level 213 H 0-150 mg/dl Cholesterol Level 116 0-200 mg/dl HDL Cholesterol 36 mg/dl Cholesterol/HDL Ratio 3.2 LDL Cholesterol, Calculated 37 mg/dl Medical Emergencies . Who to Call and When: Medical Emergencies: If at any time you feel your situation is an emergency, please call 911 immediately. . Non-Emergent Contact Non-Emergency issues call your: Primary Care Provider, Investigator Narcotics, Oncologist Call Non-Emergent contact if: you have a fever, you have any medication questions . . "Provider Documentation" section prepared by Bhupendra Taveras. . VTE Core Measure Inpt VTE Proph given/why not?: Unfractionated heparin SQ
[2017-02-17] MEDS ORDERED: INSULIN GLARGINE SOLOSTAR 100 UNITS/ML 3 ML PEN SQ SCH (08:00)
[2017-02-17] MEDS ORDERED: CITALOPRAM 20 MG TAB PO SCH (08:00)
== END 2017-02-16 18:20 | disposition home or self-care (01) | DRG 202 ==
LOC: C.EDB 16:51 → C.4E 22:38 → ENRESERV 23:06
PROVIDERS: ADMIT Internal Medicine; ATTEND Internal Medicine
DX: J20.9 Acute bronchitis, unspecified (principal); J45.901 Unspecified asthma with (acute) exacerbation; I50.32 Chronic diastolic (congestive) heart failure; N18.4 Chronic kidney disease, stage 4 (severe); Z87.891 Personal history of nicotine dependence; Z83.3 Family history of diabetes mellitus; Z82.49 Family history of ischemic heart disease and other diseases of the circulatory system; Z79.82 Long term (current) use of aspirin; Z79.4 Long term (current) use of insulin; Z85.05 Personal history of malignant neoplasm of liver; Z85.07 Personal history of malignant neoplasm of pancreas; I12.9 Hypertensive chronic kidney disease with stage 1 through stage 4 chronic kidney disease, or unspecified chronic kidney disease; E11.65 Type 2 diabetes mellitus with hyperglycemia; E11.22 Type 2 diabetes mellitus with diabetic chronic kidney disease; F32.9 Major depressive disorder, single episode, unspecified

== ENCOUNTER 2018-07-22 14:48 | Inpatient (IN) ==
[2018-07-22 15:37] LABS: Base Excess VBG 5.8 mEq/L; HCO3 VBG 33 mmol/L; Oxygen Saturation VBG < 60.0 %; PCO2 VBG 58 mmHg (38-50); PO2 VBG 19 mmHg; pH VBG 7.37 (7.36-7.41)
[2018-07-22 15:44] LABS: Basophils # (auto) 0.01 K/uL (0-0.2); Basophils % (auto) 0.1 %; Eosinophils # (auto) 0.11 K/uL (0-0.5); Eosinophils % (auto) 1.1 %; Hematocrit (blood only) 33.4 % (42-52); Hemoglobin 10.5 g/dL (14.0-18.0); Immature Granulocytes # (auto) 0.07 K/uL (0.00-0.02); Immature Granulocytes % (auto) 0.7 %; Lymphocytes # (auto) 1.22 K/uL (1.2-3.4); Lymphocytes % (auto) 11.7 %; Mean Corpuscular Hgb Conc 31.4 g/dL (32-36); Mean Corpuscular Volume 82.7 fL (80-100); Mean Platelet Volume 12.1 fL (7.4-10.4); Monocytes % (auto) 18.2 %; Neutrophils # (auto) 7.11 K/uL (1.4-6.5); Neutrophils % (auto) 68.2 %; Platelet Count 240 K/uL (130-400); RDW Coefficient of Variation 14.5 % (11.5-14.5); RDW Standard Deviation 42.3 fL (36.4-46.3); Red Blood Count 4.04 M/uL (4.7-6.1); White Blood Count 10.42 K/uL (4.8-10.8)
--- NOTE | 2018-07-22 15:46 | XRay Report ---
XR chest 1V portable CLINICAL HISTORY: 73 years-old Male presenting with Chest Pain. TECHNIQUE: Portable upright AP view of the chest was obtained. COMPARISON: 02/12/2017. FINDINGS: Cardiac silhouette borderline enlarged, unchanged. No focal opacity. No large effusion or pneumothora x. Degenerative changes of the thoracic spine. Partially visualized posterior cervical fusion hardwar e. Upper abdomen normal. IMPRESSION: 1. Borderline cardiomegaly, unchanged. No other convincing evidence of acute cardiopulmonary disease . Electronically signed by: Cody Connor M.D. 07/22/2018 3:45 PM
[2018-07-22 15:52] LABS: Appearance Urine Clear (Clear); Bacteria Urine Automated Negative (Negative); Bilirubin Urine Negative (Negative); Blood Urine Trace (Negative); Cast Urine Automated 0 /lpf (0-5); Color Urine Yellow; Epithelial Cell Urine Auto 0-5 /lpf (0-5); Glucose Urine UA 2+ (Negative); Ketones Urine Negative (Negative); Leukocyte Esterase Urine Negative (Negative); Nitrite Urine Negative (Negative); Protein Urine 1+ (Negative); RBC Urine Automated 0-4 /hpf (0-4); Specific Gravity Urine 1.014 (1.000-1.030); Urobilinogen Urine Negative (Negative); pH Urine 5.5 (4.5-7.5)
[2018-07-22 15:53] LABS: Prothrombin Time 10.5 Seconds (9.0-12.0)
[2018-07-22 16:16] LABS: Alanine Aminotransferase 15 U/L (12-78); Albumin Globulin Ratio 0.6 (0.9-2); Albumin Level 2.8 gm/dl (3.4-5.0); Alkaline Phosphatase 91 U/L (45-117); Aspartate Aminotransferase 12 U/L (15-37); BUN Creatinine Ratio 16.6 (10-20); Bilirubin Direct < 0.1 mg/dl (0-0.2); Bilirubin,Total 0.3 mg/dl (0.2-1); Blood Urea Nitrogen 57 mg/dl (7-18); Calcium 8.7 mg/dl (8.5-10.1); Carbon Dioxide 32 mmol/L (21-32); Chloride 100 mmol/L (98-107); Creatine Kinase 39 U/L (39-308); Creatinine Clr Calc Pharmacy 23.6 ml/min; Est GFR (African American) 19.6; Est GFR (Non-African American) 16.9; Globulin 4.4 gm/dl (2.5-4.0); Glucose 329 mg/dl (70-99); Magnesium 2.1 mg/dl (1.8-2.4); Phosphorus 4.4 mg/dl (2.5-4.9); Potassium 3.8 mmol/L (3.5-5.1); Sodium 141 mmol/L (136-145); Total Protein 7.2 gm/dl (6.4-8.2); Troponin I < 0.015 ng/ml (0-0.045)
[2018-07-22 16:27] LABS: Beta-Hydroxybutyrate 0.73 mg/dl (0.2-2.81)
--- NOTE | 2018-07-22 17:01 | CT Scan Report ---
HEAD CT NONCONTRAST CT DOSE: HISTORY: Fall. weakness TECHNIQUE: Multiaxial CT images of the head were performed without the use of intravenous contrast. A utomated exposure control was utilized for this study. A dose lowering technique was utilized adheri ng to the principles of ALARA. Comparison: Head CT 04/29/2015. Findings: The paranasal sinuses and mastoid air cells are clear. The calvarium and skull base are int act. The ventricles and sulci are within normal limits. There is no mass, hematoma, midline shift, or acute infarct. Impression: No acute intracranial abnormality. Electronically signed by: Paul Perez M.D. 07/22/2018 4:59 PM
--- NOTE | 2018-07-22 17:03 | CT Scan Report ---
CERVICAL SPINE CT CT DOSE: 2676.18 mGy.cm HISTORY: Neck pain fall TECHNIQUE: Multiaxial CT images of the cervical spine were performed and reformatted in the sagittal and coronal plane without the use of contrast. A dose lowering technique was utilized adhering to th e principles of ALARA. COMPARISON: Cervical spine CT 04/29/2015. FINDINGS: Posterior decompression and fusion from C3 through T1 with screws and rods. The hardware ap pears intact. No fracture or subluxation. Prevertebral soft tissues and the C1-C2 interval are intact . Degenerative changes are again noted. IMPRESSION: No fractures within the cervical spine. Electronically signed by: Paul Perez M.D. 07/22/2018 5:02 PM
--- NOTE | 2018-07-22 17:05 | CT Scan Report ---
CT abd pelvis wo con CLINICAL HISTORY: 73 years-old Male presenting with abd/back pain fall. TECHNIQUE: Multidetector CT of the abdomen and pelvis was performed without the use of intravenous co ntrast. IV contrast: None. One or more dose lowering techniques were used consistent with the princip les of ALA (as low as reasonably achievable), including automatic exposure control, mA or kV adjust ment to individual patient size, and/or use of iterative reconstruction. COMPARISON: 05/19/2015. CT DOSE (mGy.cm): The estimated cumulative dose is 2676.18. FINDINGS: Taper Operator topogram: Posterior cervical fusion hardware. Lung bases: Normal heart size. Coronary artery and mitral annular calcification. No pericardial or pl eural effusion. Minimal dependent changes likely atelectasis. Liver: The lateral segments of the left hepatic lobe are severely atrophic and calcified. This may re present postprocedural change. Interval development of multiple (approximately 15) suspicious lesions new from prior exam. Normal hepatic density in the uninvolved parenchyma. Biliary: No gross biliary ductal dilatation allowing for noncontrast technique. Gallbladder contains gallstones. Pancreas: Severe parenchymal atrophy. Multilobular soft tissue mass at the level of the pancreatic ne ck, which is possibly separate from the pancreatic parenchyma along the superior margin measures 3.7 cm in diameter. This has slowly been increasing in size since 2013, when it measured 2.6 cm in diamet er (series 11 image 97). No gross evidence of pancreatic ductal dilatation. Spleen: Few punctate calcifications suggest a history of granulomatous disease. Adrenal glands: Normal noncontrast appearance. Kidneys and ureters: Nonobstructing bilateral nephrolithiasis measuring up to 4 mm. Exophytic 2.8 cm indeterminate density lesion arising from the interpolar to lower pole region of the left kidney, pre viously 2.7 cm in 2016 and 1.8 cm in 2012. Moderate bilateral nonspecific perinephric fat infiltratio n. No nephrolithiasis. Ureters nondistended. Bladder: Circumferential bladder wall thickening. Pelvic organs: Prostate enlargement likely secondary to benign prostatic hyperplasia. Bowel: Diverticulosis of the proximal to mid sigmoid and distal descending colon without wall thicken ing or pericolonic inflammatory change. The appendix is normal. No bowel obstruction. Incidental note made of a 1.2 cm intraluminal lipoma in small bowel within the left lower quadrant (series 11 image 325). Peritoneal cavity: No free fluid or intraperitoneal gas. Peripherally calcified and centrally fat-con taining ovoid and laminar focus in the epigastrium unchanged from prior and likely fat necrosis. Smal l umbilical fat-containing hernia. Lymph nodes: No gross lymphadenopathy allowing for noncontrast technique. Vasculature: Atherosclerosis of the normal caliber abdominal aorta. Abdominal wall: Infiltration of the subcutaneous fat in the lumbar region is nonspecific. No superfic ial hematoma. No focal evidence of trauma. Musculoskeletal: Old rib fractures evident in addition to a mildly displaced potentially acute fractu re of the posterior right 11th rib postsurgical changes of the lumbar spine including laminectomies. IMPRESSION: 1. Possible acute fracture of the posterior right 11th rib. Correlate for point tenderness. Several old rib fractures are also apparent. 2. No other evidence of acute intra-abdominal injury allowing for this noncontrast examination. 3. Multiple (at least 15) lesions throughout the liver with a highly suspicious morphology and new f rom prior exam. These should be considered metastases until proven otherwise. Outpatient follow-up is required. 4. Postsurgical or posttreatment changes of the left hepatic lobe may also be present. Correlate wit h surgical or treatment history. 5. Slow growth of a multilobular soft tissue mass along the pancreatic neck, which may be superior t o the pancreatic neck and may or may not arise from the pancreas. This has increased in size since though its slow growth rate makes this lesion is indeterminate. This is suboptimally evaluated wit hout intravenous contrast. 6. Indeterminant 2.8 cm left renal lesion. This is also slowly increased in size since 2012 and subo ptimally evaluated without intravenous contrast. 7. Cholelithiasis. The report will be called/faxed according to standard departmental protocol. Electronically signed by: Cody Connor M.D. 07/22/2018 5:04 PM
--- NOTE | 2018-07-22 17:13 | CT Scan Report ---
CT chest wo con CLINICAL HISTORY: 73 years-old Male presenting with chest/back pain fall. TECHNIQUE: Multidetector CT imaging of the chest was performed without the use of intravenous contras t. IV contrast: None. One or more dose lowering techniques were used consistent with the principles o f ALARA (as low as reasonably achievable), including automatic exposure control, mA or kV adjustment to individual patient size, and/or use of iterative reconstruction. COMPARISON: 01/05/2017. CT DOSE (mGy.cm): The estimated cumulative dose is 2676.18. FINDINGS: Lace Pinner topogram: Posterior cervical fusion hardware noted. Soft tissues: Normal thyroid and thoracic inlet. Gynecomastia. No axillary, supraclavicular, or media stinal lymphadenopathy. Evaluation of the radha limited without intravenous contrast. Atherosclerosis of the aorta. Top normal heart size. Coronary artery, aortic valve, and mitral annular calcification. No pericardial or pleural effusion. Multiple ill-defined hepatic masses as on prior exam though thes e have essentially increased in size. Calcification and hypoplasia or posttreatment change of the lat eral segments of the left hepatic lobe. Cholelithiasis. Lobular soft tissue mass at the level the hugo creatic neck now measures nearly 4 cm, previously 3.4 cm. This has slowly increasing in size since , when it measured 2.7 cm. Lungs and airways: No pneumothorax. Mild diffuse bronchial wall thickening may be present. Central ai rways patent. Pulmonary arteries are not significantly enlarged relative to adjacent bronchi. No inte rlobular septal thickening. Minimal dependent changes likely atelectasis. Few calcified granulomata n oted. Musculoskeletal: Degenerative changes of the spine. Partially visualized cervical fusion hardware. Bi lateral old rib fractures evident. Notably the 11th and 12th ribs are incompletely included within th e [id number]. IMPRESSION: 1. No acute intrathoracic injury. 2. Multiple hepatic masses highly concerning for metastatic disease. Follow-up is necessary. 3. Lobular soft tissue mass at the level of the pancreatic neck slowly increasing in size since 2012 , indeterminate. Follow-up is also required as neoplasm cannot excluded. The report will be called/faxed according to standard departmental protocol. Electronically signed by: Cody Connor M.D. 07/22/2018 5:11 PM
[2018-07-22] MEDS ORDERED: SODIUM CHLORIDE 0.9% 1000ML 500 ML IV ONE (17:17)
[2018-07-22] MEDS ORDERED: ACETAMINOPHEN 1,000 MG/100 ML VIAL IV STA (17:17)
--- NOTE | 2018-07-22 19:08 | History & Physical Report ---
Date of Service July 22, 2018 Assessment & Plan (1) Generalized weakness: Pt presented with c/o increased generalized weakness x 1 week with 3 falls. Denies dizziness, CP, SOB, vision changes, RILEY. Reported elevated BSGs past week. In ER pt afebrile, P: 99, R: 20, BP: 133/69, 96% RA. WBC: 10, H/H: 10.5/33.4 (baseline hgb: 9-10), Plt: 240, no significant electrolyte abnormality, UA unremarkable -Was given 500ml NSS in ER DDX weakness secondary hyperglycemia, R/O underlying infection Pt with reported hallucinations -pending ammonia level -pending blood cultures, urine culture -gentle IVF -PT/OT eval -monitor (2) Pancreas cancer: (3) Liver cancer: Hx metastatic pancreatic and liver cancer-neuroendocrine tumor. Follows with Dr. Arthur Huynh in [facility] Afinator held since last week secondary to fatigue Pt receives octreotide Q28 days (4) Hyperglycemia: (5) Diabetes: Glucose: 329 in ER down to 90 A1c: 7.6 on 06/26/18 -Novolog Lantus sliding scale (6) CKD (chronic kidney disease), stage IV: Cr: 3.4. Baseline 3.1 -monitor renal functions -avoid nephrotoxic agents (7) Diastolic heart failure: 2017 echo: EF: 55-60%, grade 1 diastolic dysfunction, mild mitral regurgitation, pulmonary hypertension -Appears dry, will hold torsemide at this time (8) Hypertension: Stable -Continue amlodipine (9) Anemia: Chronic anemia. Hemoglobin: 10.5. Baseline 9-10 Patient receives Procrit every week -Monitor H&H (10) Asthma: No acute exacerbation -Continue Advair, albuterol as needed (11) Depression: -Continue Prozac (12) Chronic neck pain: -We will decrease gabapentin dose to 200 mg twice daily secondary to CKD DVT Prophylaxis -Heparin SQ DNR as per discussion with pt Follows with Dr Rivera/Deedee Perkins PA-C for routine care Pt was seen with Dr Taveras. See addendum Attending Addendum: delayed entry care coordinated with BRIGETTE Giraldo please refer to her notes for full details, I agree with her notes patient seen and examined, records reviewed by myself as well on exam, patient seen resting in bed states he feels very tired denies cough, chest pain, fever/chills, abdominal pain does report testicular pain since a few days ago, denies problems with urination no other symptoms VS noted and reviewed oriented x , not in distress, speaks in sentences with no effort nor accessory muscle use normal rate, regular rhythm, no murmurs clear breath sounds bilaterally non distended, soft, nontender testicular exam: no swelling, erythema, tenderness no bipedal edema, erythema, warmth no neuro deficits WBC 10 Hg 10 Crea 3.2 ASSESSMENT AND PLAN GENERALIZED WEAKNESS R/O INFECTION check cultures PRN Aztreonam for possible orchitis? R/O ELEVATED AMMONIA FROM HYPERGLYCEMIA? pharmacy glycemic control consult HISTORY OF PANCREATIC CA WITH METS chemo on Hold other diagnoses and plan of care as per BRIGETTE Taveras MD History of Present Illness Chief Complaint: weakness Primary Care Provider: Deedee Perkins PA-C Pt is 73 y/o M with PMH pancreatic/liver cancer, CKD IV, diastolic heart failure, asthma, insulin-dependent DM II, depression, hyperparathyroidism, HTN presented to ER with complaint of increased weakness. Patient reports increased generalized weakness for the past week. Reports 3 falls over the past week last fall being 3 AM this morning. Patient states was trying to get off the toilet and legs were too weak and he fell. Reports other falls were during the middle the night and he woke up on the floor, does not remember the fall. Patient unsure if he hit his head. He denies any known injuries. Reports chronic neck and back pain and does not feel these are worse. Reports chronic intermittent nonproductive cough and chronic stuffy nose. Patient states blood sugars have been running greater than 400 for the past week. States his been eating and drinking normally. States has been urinating a lot. Patient states past couple of days he has been having visual hallucinations, worse with closing his eyes. Describes things trying to grab at him in tornado like objects. Also reports he feels like he is out of body. Follows with Dr. Arthur Huynh in [place] for pancreatic/liver cancer. Is on octreotide every 28 days. Reports last visit approximately 1 week ago and he was taken off of Afinator secondary to reported fatigue. Patient receives Procrit injections every week. Denies fever/chills, diaphoresis, N/V/D, RILEY, dizziness, vision changes, CP, SOB, orthopnea, palpitations, hemoptysis, sore throat, choking, otalgia, abdominal pain, par esthesias, extremity edema, rashes, dysuria, hematuria. Allergies Allergy/AdvReac Type Severity Reaction Status Date / Time Sulfa (Sulfonamide Allergy Mild RASH Verified 07/22/18 17:13 Antibiotics) NSAIDS (Non-Steroidal Allergy Unknown "NO Unverified 07/22/18 17:13 Anti-Inflamma NSAIDS"due to kidney disease Home Medications Home Medications Medication Instructions Recorded Confirmed Type Glucagon Emergency Kit (human) 1 mg SUBCUT DIRECTED PRN 07/22/18 07/22/18 History Lantus Solostar U-100 Insulin 60 unit SUBCUT QAM 07/22/18 07/22/18 History ProAir RespiClick 2 inh INHALATION DIRECTED PRN 07/22/18 07/22/18 History Sandostatin LAR Depot 10 mg IM Q28D 07/22/18 07/22/18 History acetaminophen 650 mg PO Q4H PRN 07/22/18 07/22/18 History amlodipine 5 mg PO QAM 07/22/18 07/22/18 History calcitriol 0.25 mcg PO QAM 07/22/18 07/22/18 History epoetin sabrina 2,000 unit SUBCUT WK 07/22/18 07/22/18 History ergocalciferol (vitamin D2) 2,000 unit PO .Q2WK 07/22/18 07/22/18 History fluoxetine 20 mg PO DAILY 07/22/18 07/22/18 History fluticasone propion-salmeterol 2 inh INHALATION DAILY 07/22/18 07/22/18 History guaifenesin [Mucinex] 600 mg PO DIRECTED PRN 07/22/18 07/22/18 History insulin lispro [Humalog KwikPen 20 unit SUBCUT UD PRN 07/22/18 07/22/18 History Insulin] levalbuterol HCl 0.63 mg INHALATION DIRECTED PRN 07/22/18 07/22/18 History ranitidine HCl 150 mg PO HS 07/22/18 07/22/18 History sevelamer carbonate 2 tab PO TIDM 07/22/18 07/22/18 History simvastatin 20 mg PO HS 07/22/18 07/22/18 History gabapentin 200 mg PO BID 30 Days #120 cap 07/26/18 Rx levofloxacin 250 mg PO Q2D #3 tab 07/26/18 Rx torsemide 20 mg PO BID 30 Days #0 tab 07/26/18 07/22/18 Rx tramadol 50 mg PO Q12 PRN 7 Days #10 tab 07/26/18 Rx Past Med/Surg History Medical History Chronic neck pain (Chronic) Depression (Chronic) CKD (chronic kidney disease), stage IV (Chronic) Diastolic heart failure (Chronic) Diabetes (Chronic) Hypertension (Chronic) Liver cancer (Chronic) Pancreas cancer (Chronic) Asthma (Chronic) Anemia (Chronic) No pertinent family history Surgical History H/O cervical spine surgery (Resolved) S/P foot surgery (Resolved) S/P knee surgery (Resolved) S/P lumbar spine operation (Resolved) Family History Other Breast cancer Diabetes No pertinent family history Social History Preferred Language: Mohawk Communication Ability: Effective Visual Impairment: No Limitations Hearing Ability: Normal [employer] Required: No Beliefs That Will Affect Care: None marital status: Current Living Situation: Spouse Other Information That Helps Us Care for You: No Feels Safe at Home: Yes Safety Concerns: Feels Safe At This Time Smoking Status: Former smoker Tobacco Type: cigarettes, pipe and cigars Do You Dip or Chew Tobacco: No Hx Alcohol Use: No Hx Substance Use: No Review of Systems Review of Systems: All systems reviewed & are unremarkable except as noted in HPI & below Physical Exam Physical Exam: General: no acute distress, overweight Head: normocephalic, atraumatic Eyes: PERRL, EOM's intact, conjunctiva non-injected, anicteric ENT: normal inspection external ears, nose, mucous membranes mildly dry Neck: supple, trachea midline Lungs: clear, no respiratory distress, no wheezing/rhonchi/rales CV: RRR, no murmur, no pretibial edema; right posterior lower rib tenderness to palpation, no crepitus Abd: normal BS, soft, non-tender Ext: no cyanosis, no calf tenderness, 4/5 strength bilateral upper and lower extremities Neuro: A&O x 3, no focal deficits noted, flat affect Skin: warm, dry Results & Data Vital Signs (Past 12 Hours) Vital Signs Temp Pulse Pulse Resp BP BP Pulse Ox 07/22/18 18:00 98 H 16 132/84 93 07/22/18 16:49 99 H 16 137/72 96 07/22/18 15:42 96 07/22/18 14:52 36.8 C 99 H 20 133/69 96 Laboratory Results Short CBC 07/22/18 Range/Units 15:32 WBC 10.42 (4.8-10.8) K/uL Hgb 10.5 L (14.0-18.0) g/dL Hct 33.4 L (42-52) % Plt Count 240 (130-400) K/uL BMP 07/22/18 15:32 Sodium 141 Potassium 3.8 Chloride 100 Carbon Dioxide 32 BUN 57 H Creatinine 3.44 H Glucose 329 H* Calcium 8.7 Cardiac Enzymes 07/22/18 Range/Units 15:32 Total Creatine Kinase 39 (39-308) U/L Troponin I < 0.015 (0-0.045) ng/ml Liver Function 07/22/18 Range/Units 15:32 Total Bilirubin 0.3 (0.2-1) mg/dl Direct Bilirubin < 0.1 (0-0.2) mg/dl AST 12 L (15-37) U/L ALT 15 (12-78) U/L Alkaline Phosphatase 91 (45-117) U/L Albumin 2.8 L (3.4-5.0) gm/dl Urine 07/22/18 Range/Units 15:32 Urine Color Yellow Urine Appearance Clear (Clear) Urine pH 5.5 (4.5-7.5) Ur Specific [place] 1.014 (1.000-1.030) Urine Protein 1+ H (Negative) Urine Glucose (UA) 2+ H (Negative) Diagnostic Findings CT HEAD: Impression: No acute intracranial abnormality. CT C SPINE: IMPRESSION: No fractures within the cervical spine. CT CHEST: IMPRESSION: 1. No acute intrathoracic injury. 2. Multiple hepatic masses highly concerning for metastatic disease. Follow-up is necessary. 3. Lobular soft tissue mass at the level of the pancreatic neck slowly increasing in size since 2012, indeterminate. Follow-up is also required as neoplasm cannot excluded. CT ABD/PELVIS: IMPRESSION: 1. Possible acute fracture of the posterior right 11th rib. Correlate for point tenderness. Several old rib fractures are also apparent. 2. No other evidence of acute intra-abdominal injury allowing for this noncontrast examination. 3. Multiple (at least 15) lesions throughout the liver with a highly suspicious morphology and new from prior exam. These should be considered metastases until proven otherwise. Outpatient follow-up is required. 4. Postsurgical or posttreatment changes of the left hepatic lobe may also be present. Correlate with surgical or treatment history. 5. Slow growth of a multilobular soft tissue mass along the pancreatic neck, which may be superior to the pancreatic neck and may or may not arise from the pancreas. This has increased in size since 2012 though its slow growth rate makes this lesion is indeterminate. This is suboptimally evaluated without intravenous contrast. 6. Indeterminant 2.8 cm left renal lesion. This is also slowly increased in size since 2012 and suboptimally evaluated without intravenous contrast. 7. Cholelithiasis. CXR: IMPRESSION: 1. Borderline cardiomegaly, unchanged. No other convincing evidence of acute cardiopulmonary disease. ECG Additional Comments: EKG read by cardiology: Normal sinus rhythm with sinus arrhythmia Left axis deviation Minimal voltage criteria for LVH, may be normal variant Prolonged QT Abnormal ECG When compared with ECG of 16-FEB-2017 07:12, No significant change was found Confirmed by Dat George ([id number]) on 07/22/2018 3:53:25 PM
[2018-07-22] MEDS ORDERED: INSULIN PROTOCOL GOAL RANGE ONE ×2 (19:17→19:21)
[2018-07-22] MEDS ORDERED: MODERATE STRESS LEVEL ONE (19:21)
[2018-07-22] MEDS ORDERED: INSULIN REGULAR 250 UNITS in SODIUM CHLORIDE 0.9% 247.5 ML IV SCH (19:30)
[2018-07-22] MEDS ORDERED: CONSULT PHARMACY STA (19:35)
--- NOTE | 2018-07-22 19:40 | Emergency Department Note ---
Entered by Deedee Sheth acting as a scribe for History of Present Illness General Chief complaint: Neuro Symptoms/Deficit Stated complaint: FALL x3 IN THE PAST WEEK,WEAK,DIZZY AND VERY TIRED Time Seen by Provider: 07/22/18 15:09 Source: patient Mode of arrival: ambulatory Limitations: no limitations History of Present Illness Onset (ago): week(s) 1 Location: head (global weakness), upper extremity (global weakness) and lower extremity (global weakness) Pain Consistency: + constant Maximum Pain Intensity: 4 Quality: + other (He states that it feels like he was hit by a truck.) Associated symptoms: + weakness and + other (The patient complains of high sugars, dizziness, and fatigue. The patient denies abdominal pain. ); no chest pain, no fever/chills, no headaches and no nausea/vomiting The patient is a 73 year old male with a history of diabetes, hypertension, liver cancer, and pancreatic cancer who presents to the ED with complaints of constant neurological symptoms that onset 1 week ago. The patient presents with his . The patient complains of weakness, dizziness, and fatigue. He states that it feels like he was hit by a truck. The patient denies fevers, chills, chest pain, headache, nausea, vomiting, and abdominal pain. He states that his sugars have been running high for the past several days. The patient notes that he has bowel movements every couple of days. Per , the patient has fallen 3 times in the past week. She states that he is currently being treated for his cancer with chemotherapy. Home Medications Home Medications Medication Instructions Recorded Confirmed Type acetaminophen 650 mg PO Q4H PRN 07/22/18 07/22/18 History albuterol sulfate [ProAir 2 inh INHALATION DIRECTED PRN 07/22/18 07/22/18 History RespiClick] amlodipine 5 mg PO QAM 07/22/18 07/22/18 History calcitriol 0.25 mcg PO QAM 07/22/18 07/22/18 History epoetin sabrina 2,000 unit SUBCUT WK 07/22/18 07/22/18 History ergocalciferol (vitamin D2) 2,000 unit PO .Q2WK 07/22/18 07/22/18 History fluoxetine 20 mg PO DAILY 07/22/18 07/22/18 History fluticasone propion-salmeterol 2 inh INHALATION DAILY 07/22/18 07/22/18 History gabapentin 400 mg PO BID 07/22/18 07/22/18 History glucagon (human recombinant) 1 mg SUBCUT DIRECTED PRN 07/22/18 07/22/18 History [Glucagon Emergency Kit (human)] guaifenesin [Mucinex] 600 mg PO DIRECTED PRN 07/22/18 07/22/18 History insulin glargine [Lantus Solostar 60 unit SUBCUT QAM 07/22/18 07/22/18 History U-100 Insulin] insulin lispro [Humalog KwikPen 20 unit SUBCUT UD PRN 07/22/18 07/22/18 History Insulin] levalbuterol HCl 0.63 mg INHALATION DIRECTED PRN 07/22/18 07/22/18 History octreotide,microspheres 10 mg IM Q28D 07/22/18 07/22/18 History [Sandostatin LAR Depot] ranitidine HCl 150 mg PO HS 07/22/18 07/22/18 History sevelamer carbonate 2 tab PO TIDM 07/22/18 07/22/18 History simvastatin 20 mg PO HS 07/22/18 07/22/18 History torsemide 20 mg PO PM 07/22/18 07/22/18 History torsemide 60 mg PO QAM 07/22/18 07/22/18 History Allergies Allergy/AdvReac Type Severity Reaction Status Date / Time Sulfa (Sulfonamide Allergy Mild RASH Verified 07/22/18 17:13 Antibiotics) NSAIDS (Non-Steroidal Allergy Unknown "NO Unverified 07/22/18 17:13 Anti-Inflamma NSAIDS"due to kidney disease Past Med/Surg History Medical History Chronic neck pain (Chronic) Depression (Chronic) CKD (chronic kidney disease), stage IV (Chronic) Diastolic heart failure (Chronic) Diabetes (Chronic) Hypertension (Chronic) Liver cancer (Chronic) Pancreas cancer (Chronic) Asthma (Chronic) Anemia (Chronic) No pertinent family history Surgical History H/O cervical spine surgery (Resolved) S/P foot surgery (Resolved) S/P knee surgery (Resolved) S/P lumbar spine operation (Resolved) Family History Other Breast cancer Diabetes No pertinent family history Social History Preferred Language: Sammarinese Communication Ability: Effective Visual Impairment: No Limitations Hearing Ability: Normal Feels Safe at Home: Yes Smoking Status: Former smoker Hx Alcohol Use: No Hx Substance Use: No Review of Systems See HPI for pertinent positives & negatives. and A total of 10 systems reviewed and were otherwise negative Physical Exam Vital Signs Vital Signs - 24 hr 07/22/18 14:52 07/22/18 15:42 07/22/18 16:49 Temperature 36.8 C Temperature Source Oral Sepsis Recent Fever Within 48 Hours No Sepsis Action Taken by Nursing No Action Required Pulse Rate 99 H Pulse Rate [Apical] 99 H Respiratory Rate 20 16 Respiratory Effort / Characteristics Non-Labored Spontaneous Respiratory Depth Normal Respiratory Pattern Regular Blood Pressure 133/69 Blood Pressure [Left Arm] Blood Pressure [Right Arm] 137/72 Blood Pressure Mean 90 Blood Pressure Mean [Left Arm] Blood Pressure Mean [Right Arm] 93 Blood Pressure Position [Left Arm] Pulse Oximetry 96 96 96 Oxygen Delivery Method Room Air Room Air Room Air 07/22/18 18:00 07/23/18 00:06 Temperature 36.9 C Temperature Source Oral Sepsis Recent Fever Within 48 Hours Sepsis Action Taken by Nursing Pulse Rate Pulse Rate [Apical] 98 H 91 H Respiratory Rate 16 18 Respiratory Effort / Characteristics Respiratory Depth Normal Respiratory Pattern Blood Pressure Blood Pressure [Left Arm] 126/71 Blood Pressure [Right Arm] 132/84 Blood Pressure Mean Blood Pressure Mean [Left Arm] 89 Blood Pressure Mean [Right Arm] 100 Blood Pressure Position [Left Arm] Lying Pulse Oximetry 93 96 Oxygen Delivery Method Room Air Room Air GENERAL: Awake, alert, fatiued-appearing, in no distress HENT: Normocephalic, atraumatic. Oropharynx with dry mucous membranes and otherwise unremarkable. EYES: Normal conjunctiva. Sclera non-icteric. EOMI. No nystamgus. PEARRL. NECK: Supple. No nuchal rigidity. FROM. No JVD. RESPIRATORY: Scant intermittent wheeze, otherwise clear. CARDIAC: Regular rate, normal rhythm. Extremities warm and well perfused. Pulses equal. ABDOMEN: Soft, non-distended. No tenderness to palpation. No rebound or guarding. No masses. RECTAL: Deferred. MUSCULOSKELETAL: Chest examination reveals no tenderness. The back is symmetrical on inspection without obvious abnormality. There is no CVA tenderness to palpation. Mild bilateral CTL spine paraspinal muscle ttp. No stepoffs. No joint edema. UPPER EXTREMITIES: Palpable thrill of left forearm AV fistula. LOWER EXTREMITIES: Calves are equal size bilaterally and non-tender. No edema. No discoloration. NEURO: Normal sensorium. No sensory or motor deficits noted. 4/5 strength and SILT x4 extremities. SKIN: No rash or jaundice noted. Course 1511: Past medical records reviewed. The patient was evaluated in room B10. A complete history and physical examination was performed. 1800: I reviewed the patient's case with Tyra Guillen. She will evaluate the patient for further management. Consultations Consultation #1: 180: I reviewed the patient's case with Tyra Guillen. She will evaluate the patient for further management. Time: 18:01 Administered Medications Gabapentin (Neurontin) 200 mg PO BID JOSSUE Stop: 08/21/18 20:59 Last Admin: 07/22/18 23:51 Dose: 200 mg Documented by: [id number] Heparin Sodium (Porcine) (Heparin Sodium (Porcine)) 5,000 units SQ Q8 JOSSUE Stop: 08/21/18 21:59 Last Admin: 07/22/18 23:33 Dose: 5,000 units Documented by: [id number] Cosigned by: [id number] Sodium Chloride (Nss 1000ml) 1,000 mls @ 60 mls/hr IV .[id number] JOSSUE Stop: 08/21/18 20:29 Last Admin: 07/22/18 23:32 Dose: 60 mls/hr Documented by: [id number] Insulin Aspart (Novolog Flexpen) 0 units SC ACHS JOSSUE Stop: 08/21/18 20:59 Last Admin: 07/22/18 23:32 Dose: Not Given Documented by: [id number] Cosigned by: [id number] Ranitidine HCl (Zantac) 150 mg PO HS JOSSUE Stop: 08/21/18 20:59 Last Admin: 07/22/18 23:33 Dose: 150 mg Documented by: [id number] Simvastatin (Zocor) 20 mg PO HS JOSSUE Stop: 08/21/18 20:59 Last Admin: 07/22/18 23:33 Dose: 20 mg Documented by: [id number] Discontinued Medications Acetaminophen (Ofirmev) 1,000 mg in 100 mls @ 400 mls/hr IV NOW STA Stop: 07/22/18 17:31 Last Infusion: 07/22/18 18:01 Dose: 0 mls/hr Documented by: [id number] Admin: 07/22/18 17:28 Dose: 400 mls/hr Documented by: [id number] Sodium Chloride (Nss 1000ml) 500 mls @ 999 mls/hr IV .Q31M ONE Stop: 07/22/18 17:47 Last Infusion: 07/22/18 18:02 Dose: 0 mls/hr Documented by: [id number] Admin: 07/22/18 17:28 Dose: 999 mls/hr Documented by: [id number] Aztreonam 1,000 mg/ Dextrose 110 mls @ 110 mls/hr IV ONE ONE Stop: 07/22/18 22:29 Last Infusion: 07/23/18 00:33 Dose: 0 mls/hr Documented by: [id number] Admin: 07/22/18 23:32 Dose: 110 mls/hr Documented by: [id number] Miscellaneous (Insulin Protocol Moderate Stress Level) 1 ea N/A ONE ONE Stop: 07/22/18 19:22 Last Admin: 07/22/18 20:22 Dose: Not Given Documented by: [id number] Miscellaneous (Insulin Protocol Goal Range) 1 ea N/A ONE ONE Stop: 07/22/18 19:22 Last Admin: 07/22/18 20:22 Dose: Not Given Documented by: [id number] Medical Decision Making Differential Diagnosis Differential diagnosis: Metabolic, infection, hypo/hyperglycemia, electrolyte abnormalities, cardiac sources, intracerebral event, toxicologic, neurologic, as well as others were entertained. Medical Records Attestation: I reviewed the patient's medical records. Home Medications Current Medication List: was personally reviewed by me Laboratory Data Attestation: I reviewed the patient's lab results. Result diagrams: 07/22/18 15:32 07/22/18 15:32 Lab Results 07/22/18 07/22/18 07/22/18 Range/Units 15:25 15:32 15:32 WBC 10.42 (4.8-10.8) K/uL RBC 4.04 L (4.7-6.1) M/uL Hgb 10.5 L (14.0-18.0) g/dL Hct 33.4 L (42-52) % MCV 82.7 (80-100) fL MCH 26.0 (25-34) pg MCHC 31.4 L (32-36) g/dL RDW Std Deviation 42.3 (36.4-46.3) fL RDW Coeff of José Miguel 14.5 (11.5-14.5) % Plt Count 240 (130-400) K/uL MPV 12.1 H (7.4-10.4) fL Immature Gran % (Auto) 0.7 % Neut % (Auto) 68.2 % Lymph % (Auto) 11.7 % Mitchell % (Auto) 18.2 % Eos % (Auto) 1.1 % Baso % (Auto) 0.1 % Immature Gran # (Auto) 0.07 H (0.00-0.02) K/uL Neut # (Auto) 7.11 H (1.4-6.5) K/uL Lymph # (Auto) 1.22 (1.2-3.4) K/uL Mitchell # (Auto) 1.90 H (0.11-0.59) K/uL Eos # (Auto) 0.11 (0-0.5) K/uL Baso # (Auto) 0.01 (0-0.2) K/uL PT 10.5 (9.0-12.0) Seconds INR 1.0 (0.9-1.1) VBG pH 7.37 (7.36-7.41) VBG pCO2 58 H (38-50) mmHg VBG pO2 19 mmHg VBG HCO3 33 mmol/L VBG O2 Saturation < 60.0 % VBG Base Excess 5.8 mEq/L Barometric Pressure 734.0 mm/Hg Sodium (136-145) mmol/L Potassium (3.5-5.1) mmol/L Chloride (98-107) mmol/L Carbon Dioxide (21-32) mmol/L Anion Gap (3-11) BUN (7-18) mg/dl Creatinine (0.6-1.4) mg/dl Est Cr Clr Drug Dosing ml/min Est GFR ( Amer) Est GFR (Non-Af Amer) BUN/Creatinine Ratio (10-20) Glucose (70-99) mg/dl POC Glucose (70-99) Calcium (8.5-10.1) mg/dl Phosphorus (2.5-4.9) mg/dl Magnesium (1.8-2.4) mg/dl Total Bilirubin (0.2-1) mg/dl Direct Bilirubin (0-0.2) mg/dl AST (15-37) U/L ALT (12-78) U/L Alkaline Phosphatase (45-117) U/L Ammonia (11-32) umol/L Total Creatine Kinase (39-308) U/L Troponin I (0-0.045) ng/ml Total Protein (6.4-8.2) gm/dl Albumin (3.4-5.0) gm/dl Globulin (2.5-4.0) gm/dl Albumin/Globulin Ratio (0.9-2) Lipase (73-393) U/L Beta-Hydroxybutyric Acd (0.2-2.81) mg/dl Urine Color Urine Appearance (Clear) Urine pH (4.5-7.5) Ur Specific [place] (1.000-1.030) Urine Protein (Negative) Urine Glucose (UA) (Negative) Urine Ketones (Negative) Urine Blood (Negative) Urine Nitrite (Negative) Urine Bilirubin (Negative) Urine Urobilinogen (Negative) Ur Leukocyte Esterase (Negative) Urine WBC (Auto) (0-5) /hpf Urine RBC (Auto) (0-4) /hpf U Hyaline Cast (Auto) (0-5) /lpf U Epithel Cells (Auto) (0-5) /lpf Urine Bacteria (Auto) (Negative) 07/22/18 07/22/18 07/22/18 Range/Units 15:32 15:32 19:42 WBC (4.8-10.8) K/uL RBC (4.7-6.1) M/uL Hgb (14.0-18.0) g/dL Hct (42-52) % MCV (80-100) fL MCH (25-34) pg MCHC (32-36) g/dL RDW Std Deviation (36.4-46.3) fL RDW Coeff of José Miguel (11.5-14.5) % Plt Count (130-400) K/uL MPV (7.4-10.4) fL Immature Gran % (Auto) % Neut % (Auto) % Lymph % (Auto) % Mitchell % (Auto) % Eos % (Auto) % Baso % (Auto) % Immature Gran # (Auto) (0.00-0.02) K/uL Neut # (Auto) (1.4-6.5) K/uL Lymph # (Auto) (1.2-3.4) K/uL Mitchell # (Auto) (0.11-0.59) K/uL Eos # (Auto) (0-0.5) K/uL Baso # (Auto) (0-0.2) K/uL PT (9.0-12.0) Seconds INR (0.9-1.1) VBG pH (7.36-7.41) VBG pCO2 (38-50) mmHg VBG pO2 mmHg VBG HCO3 mmol/L VBG O2 Saturation % VBG Base Excess mEq/L Barometric Pressure mm/Hg Sodium 141 (136-145) mmol/L Potassium 3.8 (3.5-5.1) mmol/L Chloride 100 (98-107) mmol/L Carbon Dioxide 32 (21-32) mmol/L Anion Gap 9.0 (3-11) BUN 57 H (7-18) mg/dl Creatinine 3.44 H (0.6-1.4) mg/dl Est Cr Clr Drug Dosing 23.6 ml/min Est GFR ( Amer) 19.6 Est GFR (Non-Af Amer) 16.9 BUN/Creatinine Ratio 16.6 (10-20) Glucose 329 H* (70-99) mg/dl POC Glucose (70-99) Calcium 8.7 (8.5-10.1) mg/dl Phosphorus 4.4 (2.5-4.9) mg/dl Magnesium 2.1 (1.8-2.4) mg/dl Total Bilirubin 0.3 (0.2-1) mg/dl Direct Bilirubin < 0.1 (0-0.2) mg/dl AST 12 L (15-37) U/L ALT 15 (12-78) U/L Alkaline Phosphatase 91 (45-117) U/L Ammonia 27.0 (11-32) umol/L Total Creatine Kinase 39 (39-308) U/L Troponin I < 0.015 (0-0.045) ng/ml Total Protein 7.2 (6.4-8.2) gm/dl Albumin 2.8 L (3.4-5.0) gm/dl Globulin 4.4 H (2.5-4.0) gm/dl Albumin/Globulin Ratio 0.6 L (0.9-2) Lipase 59 L (73-393) U/L Beta-Hydroxybutyric Acd 0.73 (0.2-2.81) mg/dl Urine Color Yellow Urine Appearance Clear (Clear) Urine pH 5.5 (4.5-7.5) Ur Specific [place] 1.014 (1.000-1.030) Urine Protein 1+ H (Negative) Urine Glucose (UA) 2+ H (Negative) Urine Ketones Negative (Negative) Urine Blood Trace H (Negative) Urine Nitrite Negative (Negative) Urine Bilirubin Negative (Negative) Urine Urobilinogen Negative (Negative) Ur Leukocyte Esterase Negative (Negative) Urine WBC (Auto) 1-5 (0-5) /hpf Urine RBC (Auto) 0-4 (0-4) /hpf U Hyaline Cast (Auto) 0 (0-5) /lpf U Epithel Cells (Auto) 0-5 (0-5) /lpf Urine Bacteria (Auto) Negative (Negative) 07/22/18 Range/Units 20:26 WBC (4.8-10.8) K/uL RBC (4.7-6.1) M/uL Hgb (14.0-18.0) g/dL Hct (42-52) % MCV (80-100) fL MCH (25-34) pg MCHC (32-36) g/dL RDW Std Deviation (36.4-46.3) fL RDW Coeff of José Miguel (11.5-14.5) % Plt Count (130-400) K/uL MPV (7.4-10.4) fL Immature Gran % (Auto) % Neut % (Auto) % Lymph % (Auto) % Mitchell % (Auto) % Eos % (Auto) % Baso % (Auto) % Immature Gran # (Auto) (0.00-0.02) K/uL Neut # (Auto) (1.4-6.5) K/uL Lymph # (Auto) (1.2-3.4) K/uL Mitchell # (Auto) (0.11-0.59) K/uL Eos # (Auto) (0-0.5) K/uL Baso # (Auto) (0-0.2) K/uL PT (9.0-12.0) Seconds INR (0.9-1.1) VBG pH (7.36-7.41) VBG pCO2 (38-50) mmHg VBG pO2 mmHg VBG HCO3 mmol/L VBG O2 Saturation % VBG Base Excess mEq/L Barometric Pressure mm/Hg Sodium (136-145) mmol/L Potassium (3.5-5.1) mmol/L Chloride (98-107) mmol/L Carbon Dioxide (21-32) mmol/L Anion Gap (3-11) BUN (7-18) mg/dl Creatinine (0.6-1.4) mg/dl Est Cr Clr Drug Dosing ml/min Est GFR ( Amer) Est GFR (Non-Af Amer) BUN/Creatinine Ratio (10-20) Glucose (70-99) mg/dl POC Glucose 126 H (70-99) Calcium (8.5-10.1) mg/dl Phosphorus (2.5-4.9) mg/dl Magnesium (1.8-2.4) mg/dl Total Bilirubin (0.2-1) mg/dl Direct Bilirubin (0-0.2) mg/dl AST (15-37) U/L ALT (12-78) U/L Alkaline Phosphatase (45-117) U/L Ammonia (11-32) umol/L Total Creatine Kinase (39-308) U/L Troponin I (0-0.045) ng/ml Total Protein (6.4-8.2) gm/dl Albumin (3.4-5.0) gm/dl Globulin (2.5-4.0) gm/dl Albumin/Globulin Ratio (0.9-2) Lipase (73-393) U/L Beta-Hydroxybutyric Acd (0.2-2.81) mg/dl Urine Color Urine Appearance (Clear) Urine pH (4.5-7.5) Ur Specific [place] (1.000-1.030) Urine Protein (Negative) Urine Glucose (UA) (Negative) Urine Ketones (Negative) Urine Blood (Negative) Urine Nitrite (Negative) Urine Bilirubin (Negative) Urine Urobilinogen (Negative) Ur Leukocyte Esterase (Negative) Urine WBC (Auto) (0-5) /hpf Urine RBC (Auto) (0-4) /hpf U Hyaline Cast (Auto) (0-5) /lpf U Epithel Cells (Auto) (0-5) /lpf Urine Bacteria (Auto) (Negative) Imaging Data Radiologist's Impression: Radiology results as stated below per my review and the radiologist's interpretation: CERVICAL SPINE CT CT DOSE: 2676.18 mGy.cm HISTORY: Neck pain fall TECHNIQUE: Multiaxial CT images of the cervical spine were performed and reformatted in the sagittal and coronal plane without the use of contrast. A dose lowering technique was utilized adhering to the principles of ALARA. COMPARISON: Cervical spine CT 04/29/2015. FINDINGS: Posterior decompression and fusion from C3 through T1 with screws and rods. The hardware appears intact. No fracture or subluxation. Prevertebral soft tissues and the C1-C2 interval are intact. Degenerative changes are again noted. IMPRESSION: No fractures within the cervical spine. Electronically signed by: Paul Perez M.D. 07/22/2018 5:02 PM Dictated: 07/22/18 1700 Transcribed: 07/22/[address] chest wo con CLINICAL HISTORY: 73 years-old Male presenting with chest/back pain fall. TECHNIQUE: Multidetector CT imaging of the chest was performed without the use of intravenous contrast. IV contrast: None. One or more dose lowering techniques were used consistent with the principles of ALARA (as low as reasonably achievable), including automatic exposure control, mA or kV adjustment to individual patient size, and/or use of iterative reconstruction. COMPARISON: 01/05/2017. CT DOSE (mGy.cm): The estimated cumulative dose is 2676.18. 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 Soft tissues: Normal thyroid and thoracic inlet. Gynecomastia. No axillary, supraclavicular, or mediastinal lymphadenopathy. Evaluation of the radha limited without intravenous contrast. Atherosclerosis of the aorta. Top normal heart size. Coronary artery, aortic valve, and mitral annular calcification. No pericardial or pleural effusion. Multiple ill-defined hepatic masses as on prior exam though these have essentially increased in size. Calcification and hypoplasia or posttreatment change of the lateral segments of the left hepatic lobe. Cholelithiasis. Lobular soft tissue mass at the level the pancreatic neck now measures nearly 4 cm, previously 3.4 cm. This has slowly increasing in size since 2012, when it measured 2.7 cm. Lungs and airways: No pneumothorax. Mild diffuse bronchial wall thickening may be present. Central airways patent. Pulmonary arteries are not significantly enlarged relative to adjacent bronchi. No interlobular septal thickening. Minimal dependent changes likely atelectasis. Few calcified granulomata noted. Musculoskeletal: Degenerative changes of the spine. Partially visualized cervical fusion hardware. Bilateral old rib fractures evident. Notably the 11th and 12th ribs are incompletely included within the [id number]. IMPRESSION: 1. No acute intrathoracic injury. 2. Multiple hepatic masses highly concerning for metastatic disease. Follow-up is necessary. 3. Lobular soft tissue mass at the level of the pancreatic neck slowly increasing in size since 2012, indeterminate. Follow-up is also required as neoplasm cannot excluded. The report will be called/faxed according to standard departmental protocol. Electronically signed by: Cody Connor M.D. 07/22/2018 5:11 PM Dictated: 07/22/18 1704 Transcribed: 07/22/[address] abd pelvis wo con CLINICAL HISTORY: 73 years-old Male presenting with abd/back pain fall. TECHNIQUE: Multidetector CT of the abdomen and pelvis was performed without the use of intravenous contrast. IV contrast: None. One or more dose lowering techniques were used consistent with the principles of ALARA (as low as reasonably achievable), including automatic exposure control, mA or kV adjustment to individual patient size, and/or use of iterative reconstruction. COMPARISON: 05/19/2015. CT DOSE (mGy.cm): The estimated cumulative dose is 2676.18. FINDINGS: Vacuum Drier Operator topogram: Posterior cervical fusion hardware. Lung bases: Normal heart size. Coronary artery and mitral annular calcification. No pericardial or pleural effusion. Minimal dependent changes likely atelectasis. Liver: The lateral segments of the left hepatic lobe are severely atrophic and calcified. This may represent postprocedural change. Interval development of multiple (approximately 15) suspicious lesions new from prior exam. Normal hepatic density in the uninvolved parenchyma. Biliary: No gross biliary ductal dilatation allowing for noncontrast technique. Gallbladder contains gallstones. Pancreas: Severe parenchymal atrophy. Multilobular soft tissue mass at the level of the pancreatic neck, which is possibly separate from the pancreatic parenchyma along the superior margin measures 3.7 cm in diameter. This has slowly been increasing in size since 2013, when it measured 2.6 cm in diameter (series 11 image 97). No gross evidence of pancreatic ductal dilatation. Spleen: Few punctate calcifications suggest a history of granulomatous disease. Adrenal glands: Normal noncontrast appearance. Kidneys and ureters: Nonobstructing bilateral nephrolithiasis measuring up to 4 mm. Exophytic 2.8 cm indeterminate density lesion arising from the interpolar to lower pole region of the left kidney, previously 2.7 cm in 2016 and 1.8 cm in 2013. Moderate bilateral nonspecific perinephric fat infiltration. No nephrolithiasis. Ureters nondistended. Bladder: Circumferential bladder wall thickening. Pelvic organs: Prostate enlargement likely secondary to benign prostatic hyperplasia. Bowel: Diverticulosis of the proximal to mid sigmoid and distal descending colon without wall thickening or pericolonic inflammatory change. The appendix is normal. No bowel obstruction. Incidental note made of a 1.2 cm intraluminal lipoma in small bowel within the left lower quadrant (series 11 image 325). Peritoneal cavity: No free fluid or intraperitoneal gas. Peripherally calcified and centrally fat-containing ovoid and laminar focus in the epigastrium unchanged from prior and likely fat necrosis. Small umbilical fat-containing hernia. Lymph nodes: No gross lymphadenopathy allowing for noncontrast technique. Vasculature: Atherosclerosis of the normal caliber abdominal aorta. Abdominal wall: Infiltration of the subcutaneous fat in the lumbar region is nonspecific. No superficial hematoma. No focal evidence of trauma. Musculoskeletal: Old rib fractures evident in addition to a mildly displaced pot entially acute fracture of the posterior right 11th rib postsurgical changes of the lumbar spine including laminectomies. IMPRESSION: 1. Possible acute fracture of the posterior right 11th rib. Correlate for point tenderness. Several old rib fractures are also apparent. 2. No other evidence of acute intra-abdominal injury allowing for this noncontrast examination. 3. Multiple (at least 15) lesions throughout the liver with a highly suspicious morphology and new from prior exam. These should be considered metastases until proven otherwise. Outpatient follow-up is required. 4. Postsurgical or posttreatment changes of the left hepatic lobe may also be present. Correlate with surgical or treatment history. 5. Slow growth of a multilobular soft tissue mass along the pancreatic neck, w hich may be superior to the pancreatic neck and may or may not arise from the pancreas. This has increased in size since 2012 though its slow growth rate makes this lesion is indeterminate. This is suboptimally evaluated without intravenous contrast. 6. Indeterminant 2.8 cm left renal lesion. This is also slowly increased in size since 2012 and suboptimally evaluated without intravenous contrast. 7. Cholelithiasis. The report will be called/faxed according to standard departmental protocol. Electronically signed by: Cody Connor M.D. 07/22/2018 5:04 PM Dictated: 07/22/18 1648 Transcribed: 07/22/181647 HEAD CT NONCONTRAST CT DOSE: HISTORY: Fall. weakness TECHNIQUE: Multiaxial CT images of the head were performed without the use of intravenous contrast. Automated exposure control was utilized for this study. A dose lowering technique was utilized adhering to the principles of ALARA. Comparison: Head CT 04/29/2015. Findings: The paranasal sinuses and mastoid air cells are clear. The calvarium and skull base are intact. The ventricles and sulci are within normal limits. There is no mass, hematoma, midline shift, or acute infarct. Impression: No acute intracranial abnormality. Electronically signed by: Paul Perez M.D. 07/22/2018 4:59 PM Dictated: 07/22/18 1656 Transcribed: 07/22/18 1656 XR chest 1V portable CLINICAL HISTORY: 73 years-old Male presenting with Chest Pain. TECHNIQUE: Portable upright AP view of the chest was obtained. COMPARISON: 02/12/2017. FINDINGS: Cardiac silhouette borderline enlarged, unchanged. No focal opacity. No large effusion or pneumothorax. Degenerative changes of the thoracic spine. Partially visualized posterior cervical fusion hardware. Upper abdomen normal. IMPRESSION: 1. Borderline cardiomegaly, unchanged. No other convincing evidence of acute cardiopulmonary disease. Electronically signed by: Cody Connor M.D. 07/22/2018 3:45 PM Dictated: 07/22/18 1544 Transcribed: 07/22/18 1544 ECG Data Attestation: I personally reviewed and interpreted this ECG as follows: Indication: weakness Rate (beats per minute): 94 Rhythm: normal sinus Findings: + other (sinus arrhythmia, LVH) and + left axis deviation; no acute ischemic change Comparison ECG Date: from (02/16/2017) Change: no significant change Blood Pressure Blood Pressure Findings: Normal blood pressure MDM Narrative The patient is a pleasant 73-year-old gentleman with a past medical history of CKD, diastolic heart failure, metastatic pancreatic cancer with liver metastases who presents emergency department with generalized weakness over the past week in the setting of receiving his monthly chemotherapeutic injection 1 week ago per [facility]. On arrival patient is fatigued appearing but no acute distress, afebrile stable vital signs. The patient appears clinically dry. He exhibits generalized weakness 4/5 strength and SILT x4 extremities. No focal deficits. EKG unremarkable without evidence of acute ischemia. CXR negative. WBC wnl. H/H 10.5, 33.4 slight improved from patient's baseline which could be related to hemoconcentration or possible effect from patient's Neupogen last week. Creatinine 3.4 within patient's baseline range. Initial glucose 329 however, with chemistry without evidence of acidosis. BHB wnl. Glucose downtrending with IVF hydration alone. CT head and spine negative for acute process. CT chest and abdomen pelvis demonstrates known metastatic disease, which while progressed from our prior imaging, patient confirms that he has been aware of his pancreatic mass and liver lesions. Overall the patient's evaluation does not demonstrate any acute findings. However, the patient reports he feels too weak to go home. There are no beds available at [facility]. Therefore will admit the patient for supportive care, gentle hydration for the patient's generalized weakness which may likely be related to mild dehydration as well as the patient's chemotherapy. Case was discussed with Wilmer Medina PA-C, who will evaluate the patient for admission. Impression & Plan Generalized weakness, Hyperglycemia, Metastatic disease Discharge Plan Visit Data *Final* Discharge Date/Time: 07/22/18 19:55 Chief Complaint: Neuro Symptoms/Deficit Stated Complaint: FALL x3 IN THE PAST WEEK,WEAK,DIZZY AND VERY TIRED ED Provider: Bhavik Callahan Discharge Problem: Generalized weakness, Hyperglycemia, Metastatic disease Patient Disposition: Admitted As Inpatient Discharge Instructions Interventions: ED Discharge Assessment Last Done: 07/22/18 19:55 The scribe's documentation has been prepared under my direction and personally reviewed by me in its entirety. I confirm that the note above accurately reflects all work, treatment, procedures, and medical decision making performed by me.
[2018-07-22] MEDS ORDERED: GLUCOSE 40% GEL 15 GM TUBE PO PRN (20:20)
[2018-07-22] MEDS ORDERED: GLUCOSE 10 TABS/TUBE PO PRN (20:20)
[2018-07-22] MEDS ORDERED: DEXTROSE 50% 50 ML SYRINGE IV PRN (20:20)
[2018-07-22] MEDS ORDERED: ALBUTEROL HFA 8 GM INHALER INH PRN (20:20)
[2018-07-22] MEDS ORDERED: CARBOHYDRATES FOR HYPOGLYCEMIA PO PRN (20:20)
[2018-07-22] MEDS ORDERED: GLUCAGON FOR INJ 1 MG VIAL SQ PRN (20:20)
[2018-07-22] MEDS ORDERED: PHARMACY GLYCEMIC MGMT CONSULT PRN (20:32)
[2018-07-22] MEDS ORDERED: INSULIN GLARGINE SOLOSTAR 100 UNITS/ML 3 ML PEN SC SCH (21:00)
[2018-07-22] MEDS ORDERED: INSULIN ASPART 100 UNITS/ML 3 ML PEN SC SCH (21:00)
[2018-07-22] MEDS ORDERED: AZTREONAM CONSULT ACTIVE PRN (21:13)
[2018-07-22] MEDS ORDERED: AZTREONAM 1,000 MG in DEXTROSE 5% 100 ML IV ONE (21:30)
--- NOTE | 2018-07-22 22:12 | XRay Report ---
XR chest 2V routine CLINICAL HISTORY: 73 years-old Male presenting with SEPSIS. TECHNIQUE: Portable upright AP view of the chest was obtained. COMPARISON: 07/22/2018. FINDINGS: Atherosclerosis of the aortic arch. Cardiac silhouette normal in size. No focal opacity. No large eff usion or pneumothorax. Degenerative changes of the thoracic spine. Upper abdomen normal. IMPRESSION: 1. No acute cardiopulmonary disease. Electronically signed by: Cody Connor M.D. 07/22/2018 10:10 PM
[2018-07-22] MEDS: INSULIN ASPART 100 UNITS/ML 3 ML PEN SC SCH (23:32)
[2018-07-22] MEDS: SODIUM CHLORIDE 0.9% 1000ML 1,000 ML IV SCH (23:32)
[2018-07-22] MEDS: HEPARIN SOD 5,000 UNIT/0.5 ML VIAL SQ SCH (23:33)
[2018-07-22] MEDS: SIMVASTATIN 20 MG TAB PO SCH (23:33)
[2018-07-22] MEDS: GABAPENTIN 100 MG CAP PO SCH (23:51)
[2018-07-23] MEDS: ACETAMINOPHEN 325 MG TAB PO PRN ×3 (05:49→21:12)
[2018-07-23] MEDS: HEPARIN SOD 5,000 UNIT/0.5 ML VIAL SQ SCH ×3 (05:50→21:08)
--- NOTE | 2018-07-23 06:47 | Ultrasound Report ---
US abdomen complete CLINICAL HISTORY: 73 years-old Male with SEPSIS. Acute sepsis TECHNIQUE: Multiple real time sonographic images of the abdomen were obtained assessing lainez-scale a ppearance. COMPARISON: CT abdomen and pelvis 07/22/2018 FINDINGS: PANCREAS: The pancreas is obscured by bowel gas. LIVER: Multiple ill-defined hypoechoic target appearing lesions throughout the liver suggestive of me tastasis redemonstrated, largest of which measures up to 2.4 x 2.0 x 2.5 cm. The left hepatic lobe is suboptimally evaluated secondary to obscuring bowel gas. No evidence of cirrhosis. No intrahepatic b iliary ductal dilation. There is no ascites. GALLBLADDER: Cholelithiasis and layering gallbladder sludge. No associated gallbladder wall thickeni ng or pericholecystic fluid.. There are a few nonmobile echogenic foci about the gallbladder fundus m easuring up to 5 mm suggestive of adherent sludge balls versus gallbladder polyps. Negative sonograph ic Yousif's sign. The common bile duct measures 0.4 cm. RIGHT KIDNEY: The right kidney measures 11.3 x 6.3 x 4.5 cm. Diffuse cortical thinning with increase d echogenicity. No renal calculi, hydronephrosis or suspicious mass lesions. LEFT KIDNEY: The left kidney measures 12.0 x 5.5 x 4.6 cm . Diffuse cortical thinning with increased parenchymal echogenicity. There is a complex hypoechoic lesion noted about the upper pole left kidne y measuring 1.9 x 1.3 x 1.8 cm without internal flow. This may reflect a complex cyst however is tech nically indeterminate. Within the lower pole left kidney there is a complex hypoechoic lesion measuri ng up to 2.9 cm, also without internal flow.. No nephrolithiasis or hydronephrosis. SPLEEN: The spleen measures 11.4 cm and is normal in echotexture with scattered calcified granulomat a. No focal lesions are identified. VASCULATURE: The visualized aorta and inferior vena cava are sub-visualized although appear normal a s seen. IMPRESSION: 1. Multiple ill-defined hypoechoic lesions throughout the liver measuring up to 2.5 cm suggest metast asis from unknown primary. 2. Cholelithiasis and gallbladder sludge without sonographic evidence of acute cholecystitis. 3. No biliary ductal dilation. 4. Suggestion of chronic medical renal disease. 5. Indeterminate 2.9 cm complex hypoechoic lesion about the inferior pole left kidney suggests a comp timothy cyst. The above report was generated using voice recognition software. It may contain grammatical, syntax o r spelling errors. Electronically signed by: Valentin Green M.D. 07/23/2018 6:46 AM
[2018-07-23 07:57] LABS: Hematocrit (blood only) 28.3 % (42-52); Hemoglobin 8.8 g/dL (14.0-18.0); Mean Corpuscular Hgb Conc 31.1 g/dL (32-36); Mean Platelet Volume 12.2 fL (7.4-10.4); Platelet Count 173 K/uL (130-400); RDW Coefficient of Variation 14.6 % (11.5-14.5); RDW Standard Deviation 42.1 fL (36.4-46.3); Red Blood Count 3.45 M/uL (4.7-6.1); White Blood Count 9.34 K/uL (4.8-10.8)
[2018-07-23] MEDS: CALCITRIOL 0.25 MCG CAPSULE PO SCH (08:08)
[2018-07-23] MEDS: FLUTICASONE/SALMETEROL 250/50 (ADVAIR) 14 PUFF/1 INHALER INH SCH (08:08)
[2018-07-23] MEDS: GABAPENTIN 100 MG CAP PO SCH ×2 (08:08→21:06)
[2018-07-23] MEDS: FLUOXETINE HCL 20 MG CAP PO SCH (08:08)
[2018-07-23] MEDS: AMLODIPINE BESYLATE 5 MG TAB PO SCH (08:08)
[2018-07-23] MEDS: SEVELAMER HCL 800 MG TABLET PO SCH ×3 (08:09→17:22)
[2018-07-23] MEDS: INSULIN ASPART 100 UNITS/ML 3 ML PEN SC SCH ×5 (08:10→23:46)
[2018-07-23] MEDS: AZTREONAM 500 MG in DEXTROSE 5% 100 ML IV SCH ×2 (08:15→21:03)
[2018-07-23 08:23] LABS: BUN Creatinine Ratio 17.8 (10-20); Calcium 8.3 mg/dl (8.5-10.1); Creatinine Clr Calc Pharmacy 25.5 ml/min; Est GFR (African American) 22.2; Est GFR (Non-African American) 19.1; Potassium 3.7 mmol/L (3.5-5.1)
[2018-07-23] MEDS ORDERED: INSULIN GLARGINE SOLOSTAR 100 UNITS/ML 3 ML PEN SC SCH ×2 (09:00→21:00)
[2018-07-23] MEDS: TRAMADOL HCL 50 MG TABLET PO PRN ×2 (11:12→19:35)
--- NOTE | 2018-07-23 13:18 | Magnetic Resonance Report ---
MR lumbar spine wo con CLINICAL HISTORY: 73 years-old Male with severe low back pain, r/o infection. Acute severe low back pain with history of prior lumbar spine surgery. Hepatic metastasis noted on recent comparison study. COMPARISON: CT abdomen and pelvis 07/22/2018 TECHNIQUE: Multiplanar, multi sequence MRI of the lumbar spine was performed without intravenous cont rast. FINDINGS: The study is mildly motion degraded, notably the sagittal STIR images. Perinephric stranding redemons trated. No gross abnormality identified on the family consumer science teacher localizer images. Please refer to CT abdomen and pelvis study obtained from 07/22/2018 for further discussion of the abdominal findings. There is no a ortic aneurysm or adenopathy identified. Postoperative changes from prior laminectomy at the L3 and L 4 levels. Soft tissue edema is noted about the operative bed, likely within normal limits. There is n o acute fracture, subluxation or focal bone marrow edema. No suspicious bone lesions to suggest metas tasis. Conus medullaris terminates at the T12-L1 interspace. The cauda equina appear unremarkable. T12-L1: Moderate disc space narrowing with circumferential annular disc bulge, spondylitic spurring and moderate facet arthrosis. Flattening of the ventral thecal sac without significant central canal or foraminal narrowing. L1-L2: Moderate disc space narrowing with circumferential annular disc bulge, spondylitic spurring w ith moderate facet arthrosis and ligamentum flavum thickening and trace facet effusions. There is fla ttening of the ventral thecal sac without significant central canal stenosis. There is mild bilateral foraminal narrowing. L2-L3: Mild to moderate disc space narrowing with spondylitic spurring, circumferential annular disc bulge with moderate facet arthrosis, trace facet effusions and ligamentum flavum thickening. Flatten ing of the ventral thecal sac without significant central canal or left foraminal narrowing. There is mild right foraminal stenosis. L3-L4: Moderate to severe disc space narrowing with posterior disc osteophyte complex and severe fac et arthrosis. There is flattening of the ventral thecal sac without significant central canal stenosi s. There is severe bilateral foraminal narrowing. L4-L5: Mild disc space narrowing with spondylitic spurring and small circumferential annular disc bu lge favoring the right neuroforamen extraforaminal distribution. Severe facet arthrosis with ligament um flavum thickening and trace left facet effusion. There is flattening of the ventral thecal sac cau sing mild central canal stenosis with mild to moderate right and mild left foraminal narrowing. L5-S1: There is mild posterior disc space narrowing with spondylitic spurring and small posterior an nular disc bulge with moderate facet arthrosis, ligamentum flavum thickening and trace facet effusion s. No significant central canal or foraminal narrowing. IMPRESSION: 1. No acute fracture, subluxation, focal bone marrow edema or evidence of osseous metastasis. 2. Prior laminectomy at the L3 and L4 levels. 3. Disc osteophyte complex formation with severe facet arthrosis at L3-L4 flattens the ventral thecal sac and results in severe bilateral foraminal narrowing. 4. Additional degenerative changes as above with varying degrees of multilevel foraminal stenosis. 5. Mild central canal stenosis at L4-L5. The above report was generated using voice recognition software. It may contain grammatical, syntax o r spelling errors. Dictated: 07/23/2018 12:36 PM Transcribed: 07/23/2018 1:18 PM Chanell [id number] [facility] Electronically signed by: Valentin Green M.D. 07/23/2018 1:35 PM
--- NOTE | 2018-07-23 13:26 | Ultrasound Report ---
TESTICULAR ULTRASOUND HISTORY: testicular pain COMPARISON: None. FINDINGS: Right testis: 3.6 x 2.5 x 1.9 cm. Slightly heterogeneous with dilated tubules. There are no intratest icular masses. Normal color flow. Small hydrocele. The epididymis is unremarkable. Left testis: 4.2 x 2.1 x 3.1 cm. Slightly heterogeneous with dilated tubules. This is symmetric to th e right. A 3 mm epididymal head cyst. There are no intratesticular masses. Normal color flow. Small h ydrocele. Slight increased thickening and increased color flow within the left epididymis compared to the right. IMPRESSION: 1. Slight increased thickening and increased color flow within the left epididymis in comparison to t he right. This could represent a mild epididymitis. 2. Mild atrophy of the bilateral testicles. 3. Small bilateral hydroceles. Electronically signed by: Paul Perez M.D. 07/23/2018 1:25 PM
[2018-07-23] MEDS: LIDOCAINE 5% 1 PATCH TD SCH (13:29)
--- NOTE | 2018-07-23 15:43 | Pharmacy Report ---
Glycemic Control Consultation - Date of Service July 23, 2018 - Scope Scope: Glycemic Pharmacist consulted by Tamra Arriaza PA-C on 07/22/18 for glycemic control and to write orders per [facility] inpatient glycemic control protocol - Objective Weight: 97.4 kg Accuchecks BSG (last 24hrs): 07/22/18 07/22/18 07/22/18 15:32 18:56 19:26 Glucose 329 H* POC Glucose 90 105 H 07/22/18 07/23/18 07/23/18 20:26 07:28 07:37 Glucose 83 POC Glucose 126 H 90 07/23/18 11:38 Glucose POC Glucose 212 H Laboratory Data (last 24hrs): 07/22/18 07/23/18 15:32 07:28 Potassium 3.8 3.7 Carbon Dioxide 32 30 Anion Gap 9.0 7.0 Creatinine 3.44 H 3.11 H D Est Cr Clr Drug Dosing 23.6 25.5 Beta-Hydroxybutyric Acd 0.73 - Recent Pertinent Medications Outpatient Anti-diabetic Regimen: * Lantus 60 units QAM, Humalog 20 units UD PRN * A1c = 7.6 % 06/26/18 Risk Factors for Insulin Resistance * Infection: currently on Azactam * IVF: NS @ 60ml/hr * Diet: T2DM - Assessment & Plan Assessment & Plan: ASSESSMENT: * Pt is a 73 ya M admitted to [facility] on 07/22 for recurrent falls * Pt's A1c 7.6% on 06/26 with Lantus/Humalog regimen at home; reports high BSGs in the AM and low readings in the afternoons * Pt confirmed he took his home dose of Lantus yesterday morning. Also reports he took 53 units of short acting insulin prior to coming into the hospital which may explain significant drop in BSGs yesterday afternoon * Fasting BSG this AM = 90 mg/dl. Lantus given at half of patient's home dose this AM. Scale added for tonight based on HS blood sugar. * CF/CR tightened at lunch in response to 212 mg/dl reading at 1200. PLAN FOR INPATIENT GLYCEMIC CONTROL: * Basal insulin: 35 units given this AM. Lantus per scale ordered for this evening * if BSG less than 140 mg/dl, give 15 units * if BSG 140-180 mg/dl, give 20 units * if BSG greater than 180 mg/dl, give 25 units * Bolus insulin * NovoLog per scale ACHS or Q6hrs while NPO * Goal Range: Low 110 mg/dL - High 140 mg/dL * Correction Factor: 20 mg/dL/unit * Nutritional / Prandial insulin per carb ratio of 1 unit per 6 grams CHO consumed * Please note that the plan above was derived based on current level of insulin resistance and hospital stress. These recommendations are appropriate for inpatient admission only. Plan of care upon discharge will need to be reassessed to avoid potential outpatient hypo/hyperglycemia. Thank you.
[2018-07-23] MEDS: SODIUM CHLORIDE 0.9% 1000ML 1,000 ML IV SCH (17:25)
[2018-07-23] MEDS: SIMVASTATIN 20 MG TAB PO SCH (21:07)
[2018-07-24] MEDS: INSULIN ASPART 100 UNITS/ML 3 ML PEN SC SCH ×5 (04:36→20:46)
[2018-07-24] MEDS: HEPARIN SOD 5,000 UNIT/0.5 ML VIAL SQ SCH ×3 (05:53→20:48)
--- NOTE | 2018-07-24 06:05 | Hospitalist Progress Note ---
Date of Service delayed entry date of service 07/23/18 July 24, 2018 Assessment & Plan (1) Generalized weakness: Pt presented with c/o increased generalized weakness x 1 week with 3 falls. Denies dizziness, CP, SOB, vision changes, RILEY. Reported elevated BSGs past week. In ER pt afebrile, P: 99, R: 20, BP: 133/69, 96% RA. WBC: 10, H/H: 10.5/33.4 (baseline hgb: 9-10), Plt: 240, no significant electrolyte abnormality, UA unremarkable -Was given 500ml NSS in ER DDX weakness secondary hyperglycemia, R/O underlying infection Pt with reported hallucinations -- Generalized weakness and falls from hyperglycemia, history of DM 2 management noted below -- cultures pending possible orchitis: check testicular US, continue empiric Aztreonam r/o Discitis: check MRI Lumbar spine -- ammonia negative -- PT/OT (2) Pancreas cancer: (3) Liver cancer: Hx metastatic pancreatic and liver cancer-neuroendocrine tumor. Follows with Dr. Arthur Huynh in [facility] held since last week secondary to fatigue Pt receives octreotide Q28 days (4) Hyperglycemia: (5) Diabetes: Glucose: 329 in ER down to 90 A1c: 7.6 on 06/26/18 -Novolog Lantus sliding scale (6) CKD (chronic kidney disease), stage IV: Cr: 3.4. Baseline 3.1 -monitor renal functions -avoid nephrotoxic agents (7) Diastolic heart failure: 2016 echo: EF: 55-60%, grade 1 diastolic dysfunction, mild mitral regurgitation, pulmonary hypertension -- on the dry side hold Torsemide (8) Hypertension: Stable -Continue amlodipine (9) Anemia: Chronic anemia. Hemoglobin: 10.5. Baseline 9-10 Patient receives Procrit every week -Monitor H&H (10) Asthma: No acute exacerbation -Continue Advair, albuterol as needed (11) Depression: -Continue Prozac (12) Chronic neck pain: - decreased gabapentin dose to 200 mg twice daily secondary to CKD DVT Prophylaxis -Heparin SQ DNR as per discussion with pt Follows with Dr Rivera/Deedee Perkins PA-C for routine care Pt was seen with Dr Taveras. See addendum (13) Low back pain: history of Spinal Stenosis check MRI LUmbar spine to r/o Discitis prn Tramadol continue Gabapentin Subjective ff up for weakness, falls seen resting in chair, not in distress states he still feels "crappy" reports severe low back pain, no leg numbness/paresthesias still has testicular discomfort denies chest pain, dyspnea, cough, dysuria no other symptoms Review of Systems Review of Systems: All systems reviewed & are unremarkable except as noted in HPI & below Results & Data Vital Signs (Past 12 Hours) Vital Signs Temp Pulse Pulse Resp BP Pulse Ox 07/24/18 04:19 37.0 C 89 18 138/67 95 07/23/18 23:19 37.4 C 80 20 115/56 L 96 07/23/18 22:20 84 07/23/18 19:35 37.0 C 90 20 159/65 H 94
[2018-07-24] MEDS: SODIUM CHLORIDE 0.9% 1000ML 1,000 ML IV SCH (07:24)
[2018-07-24] MEDS: FLUTICASONE/SALMETEROL 250/50 (ADVAIR) 14 PUFF/1 INHALER INH SCH (08:33)
[2018-07-24] MEDS: CALCITRIOL 0.25 MCG CAPSULE PO SCH (08:34)
[2018-07-24] MEDS: SEVELAMER HCL 800 MG TABLET PO SCH ×3 (08:34→17:05)
[2018-07-24] MEDS: FLUOXETINE HCL 20 MG CAP PO SCH (08:34)
[2018-07-24] MEDS: AMLODIPINE BESYLATE 5 MG TAB PO SCH (08:34)
[2018-07-24] MEDS: GABAPENTIN 100 MG CAP PO SCH ×2 (08:34→20:46)
[2018-07-24] MEDS: LIDOCAINE 5% 1 PATCH TD SCH (08:34)
[2018-07-24] MEDS: AZTREONAM 500 MG in DEXTROSE 5% 100 ML IV SCH (08:39)
[2018-07-24] MEDS ORDERED: INSULIN GLARGINE SOLOSTAR 100 UNITS/ML 3 ML PEN SC SCH ×2 (09:00→21:00)
--- NOTE | 2018-07-24 12:42 | Urology Consultation ---
Date of Consultation July 24, 2018 Assessment & Plan (1) Epididymitis: Persistent bilateral testicular discomfort, mild epididymitis on US. Will order renal dosing of Levaquin: 500mg x once then 250mg daily for a total of 10d. Will arrange outpatient urology follow up. Thank you for allowing us to participate in the care of this patient. Please contact our service with additional questions or concerns. History of Present Illness Reason for Consultation: Testicular pain Attending Physician: Bhupendra Taveras MD History of Present Illness 73YO male with testicular pain. His Scrotal US is reviewed demonstrating small bilateral hydroceles and mild epididymitis. UC&S prelim negative. Reports that this bilateral testicular pain has been persisting x several days. No pain in bladder, penis, or rectum. No fever/chills. No nausea/vomiting. Voiding spontaneously without bother. No gross hematuria. Allergies Allergy/AdvReac Type Severity Reaction Status Date / Time Sulfa (Sulfonamide Allergy Mild RASH Verified 07/22/18 17:13 Antibiotics) NSAIDS (Non-Steroidal Allergy Unknown "NO Unverified 07/22/18 17:13 Anti-Inflamma NSAIDS"due to kidney disease Home Medications Home Medications Medication Instructions Recorded Confirmed Type acetaminophen 650 mg PO Q4H PRN 07/22/18 07/22/18 History albuterol sulfate [ProAir 2 inh INHALATION DIRECTED PRN 07/22/18 07/22/18 History RespiClick] amlodipine 5 mg PO QAM 07/22/18 07/22/18 History calcitriol 0.25 mcg PO QAM 07/22/18 07/22/18 History epoetin sabrina 2,000 unit SUBCUT WK 07/22/18 07/22/18 History ergocalciferol (vitamin D2) 2,000 unit PO .Q2WK 07/22/18 07/22/18 History fluoxetine 20 mg PO DAILY 07/22/18 07/22/18 History fluticasone propion-salmeterol 2 inh INHALATION DAILY 07/22/18 07/22/18 History gabapentin 400 mg PO BID 07/22/18 07/22/18 History glucagon (human recombinant) 1 mg SUBCUT DIRECTED PRN 07/22/18 07/22/18 History [Glucagon Emergency Kit (human)] guaifenesin [Mucinex] 600 mg PO DIRECTED PRN 07/22/18 07/22/18 History insulin glargine [Lantus Solostar 60 unit SUBCUT QAM 07/22/18 07/22/18 History U-100 Insulin] insulin lispro [Humalog KwikPen 20 unit SUBCUT UD PRN 07/22/18 07/22/18 History Insulin] levalbuterol HCl 0.63 mg INHALATION DIRECTED PRN 07/22/18 07/22/18 History octreotide,microspheres 10 mg IM Q28D 07/22/18 07/22/18 History [Sandostatin LAR Depot] ranitidine HCl 150 mg PO HS 07/22/18 07/22/18 History sevelamer carbonate 2 tab PO TIDM 07/22/18 07/22/18 History simvastatin 20 mg PO HS 07/22/18 07/22/18 History torsemide 20 mg PO PM 07/22/18 07/22/18 History torsemide 60 mg PO QAM 07/22/18 07/22/18 History Patient History Medical History Chronic neck pain (Chronic) Depression (Chronic) CKD (chronic kidney disease), stage IV (Chronic) Diastolic heart failure (Chronic) Diabetes (Chronic) Hypertension (Chronic) Liver cancer (Chronic) Pancreas cancer (Chronic) Asthma (Chronic) Anemia (Chronic) No pertinent family history Surgical History H/O cervical spine surgery (Resolved) S/P foot surgery (Resolved) S/P knee surgery (Resolved) S/P lumbar spine operation (Resolved) Family History Other Breast cancer Diabetes No pertinent family history Social History Preferred Language: [place] Communication Ability: Effective Visual Impairment: No Limitations Hearing Ability: Normal Building Custodian Required: No Beliefs That Will Affect Care: None marital status: Current Living Situation: Spouse Other Information That Helps Us Care for You: No Feels Safe at Home: Yes Safety Concerns: Feels Safe At This Time Smoking Status: Former smoker Tobacco Type: cigarettes, pipe and cigars Do You Dip or Chew Tobacco: No Hx Alcohol Use: No Hx Substance Use: No Review of Systems Constitutional: no fever and no chills Eyes: + corrective lenses Ear, Nose, Mouth, Throat: no hearing loss Respiratory: no dyspnea Cardiovascular: no chest pain Gastrointestinal: no abdominal pain, no bloating, no nausea and no vomiting Genitourinary: no dysuria, no difficulty urinating and no hematuria Musculoskeletal: + back pain Neurologic: no tingling and no numbness Psychiatric: + depression (stable) Physical Exam Constitutional: WD/WN, vitals as above + overweight Neck: normal visual inspection Respiratory: normal respiratory effort; does not use accessory muscles Cardiovascular: Vessels: no JVD Gastrointestinal (Abdomen): Percussion/Palpation: abdomen soft; abdomen nontender Psychiatric: A+Ox3, euthymic affect Genitourinary: + hydrocele (bilateral), bladder normal to palpation and + epididymal tenderness; no penis abnormality and no meatal discharge Results & Data Vital Signs (Past 12 Hours) Vital Signs Temp Pulse Pulse Pulse Resp BP Pulse Ox 07/24/18 12:27 37.2 C 96 H 18 122/71 94 07/24/18 08:30 83 07/24/18 07:26 36.7 C 81 20 145/73 H 92 07/24/18 04:19 37.0 C 89 18 138/67 95
[2018-07-24] MEDS ORDERED: levoFLOXacin 500 MG TAB PO ONE (13:30)
--- NOTE | 2018-07-24 14:59 | Pharmacy Report ---
Pharmacy Glycemic Short Note 2 - Date of Service July 24, 2018 - Glycemic Short BSG Results (Last 24 hours): 07/23/18 07/23/18 07/23/18 16:36 20:07 23:26 POC Glucose 248 H 234 H 116 H 07/24/18 07/24/18 07/24/18 04:14 04:15 04:38 POC Glucose 58 L* 57 L* 73 07/24/18 07/24/18 07:29 11:32 POC Glucose 151 H 288 H OUTPATIENT ANTIDIABETIC REGIMEN: * Lantus 60 units qAM * Humalog 20 units UD prn ASSESSMENT: * Patient received total 93 units of insulin yesterday; 60 units of which were basal (Lantus). * Overnight BSG = 57 and Fasting BSG = 151; Lantus 60 units dose seems to be slightly high in the hospital setting. * 20 units Lantus given this AM; then 25 units BID ordered. * Post-prandial BSGs have been > 200; Novolog CR was tightened with dinner today PLAN FOR INPATIENT GLYCEMIC CONTROL: * Basal insulin: decreased * Lantus 20 units SQ today AM then 25 units BID * Bolus insulin: tightened * NovoLog per scale ACHS or Q6hrs while NPO * Goal Range: Low 110 mg/dL - High 140 mg/dL * Correction Factor: 20 mg/dL/unit * Nutritional / Prandial insulin per carb ratio of 1 unit per 5 grams CHO consumed PLAN FOR DISCHARGE: * HbA1c = 7.6 on 06/26/18 indicating patient has good control of diabetes although not optimal. * Recommend continuing home insulin regimen with Lantus and Humalog as long as patient is not reporting significantly low BSGs. * Recommend f/u with outpatient provider for dose adjustments.
[2018-07-24] MEDS: ACETAMINOPHEN 325 MG TAB PO PRN (15:26)
[2018-07-24] MEDS: SIMVASTATIN 20 MG TAB PO SCH (20:47)
[2018-07-25] MEDS: TRAMADOL HCL 50 MG TABLET PO PRN (03:27)
[2018-07-25] MEDS: ACETAMINOPHEN 325 MG TAB PO PRN ×2 (04:00→20:38)
[2018-07-25] MEDS: HEPARIN SOD 5,000 UNIT/0.5 ML VIAL SQ SCH ×3 (05:36→20:35)
[2018-07-25] MEDS: INSULIN ASPART 100 UNITS/ML 3 ML PEN SC SCH ×4 (07:57→20:36)
[2018-07-25] MEDS ORDERED: D5W AND NSS 1,000 ML IV SCH (08:00)
[2018-07-25 08:02] LABS: Basophils # (auto) 0.01 K/uL (0-0.2); Basophils % (auto) 0.1 %; Eosinophils # (auto) 0.16 K/uL (0-0.5); Eosinophils % (auto) 1.8 %; Hematocrit (blood only) 25.5 % (42-52); Immature Granulocytes # (auto) 0.06 K/uL (0.00-0.02); Immature Granulocytes % (auto) 0.7 %; Lymphocytes # (auto) 1.17 K/uL (1.2-3.4); Lymphocytes % (auto) 13.3 %; Mean Corpuscular Hgb Conc 31.4 g/dL (32-36); Mean Platelet Volume 12.4 fL (7.4-10.4); Monocytes # (auto) 1.83 K/uL (0.11-0.59); Monocytes % (auto) 20.7 %; Neutrophils # (auto) 5.59 K/uL (1.4-6.5); Neutrophils % (auto) 63.4 %; Platelet Count 180 K/uL (130-400); RDW Coefficient of Variation 14.4 % (11.5-14.5); RDW Standard Deviation 42.4 fL (36.4-46.3); Red Blood Count 3.11 M/uL (4.7-6.1); White Blood Count 8.82 K/uL (4.8-10.8)
--- NOTE | 2018-07-25 08:25 | XRay Report ---
XR lumbar spine 2-3V HISTORY: 73 years-old Male back and leg pain, standing films acute severe low back pain without repo rted trauma COMPARISON: Lumbar spine MRI 07/23/2018 TECHNIQUE: 2 views of the lumbar spine FINDINGS: Multilevel intervertebral disc space narrowing with spondylitic spurring and facet arthropathy redemo nstrated. Moderate posterior disc space narrowing at L3-L4. No acute fracture or subluxation identifi ed. Soft tissues are unremarkable. Mild/moderate lentiform stool throughout the colon. IMPRESSION: 1. No acute fracture or subluxation. 2. Multilevel degenerative changes, better characterized and described on comparison lumbar spine MRI 07/23/2018. The above report was generated using voice recognition software. It may contain grammatical, syntax o r spelling errors. Electronically signed by: Valentin Green M.D. 07/25/2018 8:24 AM
[2018-07-25 08:33] LABS: BUN Creatinine Ratio 15.1 (10-20); Calcium 8.3 mg/dl (8.5-10.1); Est GFR (African American) 21.2; Est GFR (Non-African American) 18.3; Potassium 4.3 mmol/L (3.5-5.1)
[2018-07-25] MEDS: GABAPENTIN 100 MG CAP PO SCH ×2 (08:40→20:34)
[2018-07-25] MEDS: FLUOXETINE HCL 20 MG CAP PO SCH (08:40)
[2018-07-25] MEDS: FLUTICASONE/SALMETEROL 250/50 (ADVAIR) 14 PUFF/1 INHALER INH SCH (08:40)
[2018-07-25] MEDS: LIDOCAINE 5% 1 PATCH TD SCH (08:40)
[2018-07-25] MEDS: AMLODIPINE BESYLATE 5 MG TAB PO SCH (08:40)
[2018-07-25] MEDS: CALCITRIOL 0.25 MCG CAPSULE PO SCH (08:41)
[2018-07-25] MEDS: SEVELAMER HCL 800 MG TABLET PO SCH ×3 (08:41→17:18)
[2018-07-25] MEDS: levoFLOXacin 250 MG TABLET PO SCH (11:23)
--- NOTE | 2018-07-25 11:45 | Orthopedic Consultation ---
Date of Consultation July 25, 2018 Assessment & Plan (1) Spinal stenosis, lumbar region with neurogenic claudication: At this time patient's symptoms seem to be markedly improved. Overall his health status is such that which clearly to avoid any surgical intervention. If his symptoms return we may want to consider consultation with interventional pain management. Present on Admission?: Yes History of Present Illness Reason for Consultation: Back and leg weakness Attending Physician: Bhupendra Taveras MD History of Present Illness This is a very pleasant 73-year-old male that presents last evening with a component of back and leg weakness. MRI was obtained and demonstrates evidence of foraminal disease L3-4. There is evidence of a previous decompression at this region as well. Upon questioning the patient today states majority back pain is markedly improved after using a heating pad throughout the evening. At this time he denies any component of leg pain numbness or weakness. He does state he had a previous laminectomy decompression in [facility] 5 to 6 years ago. Allergies Allergy/AdvReac Type Severity Reaction Status Date / Time Sulfa (Sulfonamide Allergy Mild RASH Verified 07/22/18 17:13 Antibiotics) NSAIDS (Non-Steroidal Allergy Unknown "NO Unverified 07/22/18 17:13 Anti-Inflamma NSAIDS"due to kidney disease Home Medications Home Medications Medication Instructions Recorded Confirmed Type acetaminophen 650 mg PO Q4H PRN 07/22/18 07/22/18 History albuterol sulfate [ProAir 2 inh INHALATION DIRECTED PRN 07/22/18 07/22/18 History RespiClick] amlodipine 5 mg PO QAM 07/22/18 07/22/18 History calcitriol 0.25 mcg PO QAM 07/22/18 07/22/18 History epoetin sabrina 2,000 unit SUBCUT WK 07/22/18 07/22/18 History ergocalciferol (vitamin D2) 2,000 unit PO .Q2WK 07/22/18 07/22/18 History fluoxetine 20 mg PO DAILY 07/22/18 07/22/18 History fluticasone propion-salmeterol 2 inh INHALATION DAILY 07/22/18 07/22/18 History gabapentin 400 mg PO BID 07/22/18 07/22/18 History glucagon (human recombinant) 1 mg SUBCUT DIRECTED PRN 07/22/18 07/22/18 History [Glucagon Emergency Kit (human)] guaifenesin [Mucinex] 600 mg PO DIRECTED PRN 07/22/18 07/22/18 History insulin glargine [Lantus Solostar 60 unit SUBCUT QAM 07/22/18 07/22/18 History U-100 Insulin] insulin lispro [Humalog KwikPen 20 unit SUBCUT UD PRN 07/22/18 07/22/18 History Insulin] levalbuterol HCl 0.63 mg INHALATION DIRECTED PRN 07/22/18 07/22/18 History octreotide,microspheres 10 mg IM Q28D 07/22/18 07/22/18 History [Sandostatin LAR Depot] ranitidine HCl 150 mg PO HS 07/22/18 07/22/18 History sevelamer carbonate 2 tab PO TIDM 07/22/18 07/22/18 History simvastatin 20 mg PO HS 07/22/18 07/22/18 History torsemide 20 mg PO PM 07/22/18 07/22/18 History torsemide 60 mg PO QAM 07/22/18 07/22/18 History Patient History Medical History Chronic neck pain (Chronic) Depression (Chronic) CKD (chronic kidney disease), stage IV (Chronic) Diastolic heart failure (Chronic) Diabetes (Chronic) Hypertension (Chronic) Liver cancer (Chronic) Pancreas cancer (Chronic) Asthma (Chronic) Anemia (Chronic) No pertinent family history Surgical History H/O cervical spine surgery (Resolved) S/P foot surgery (Resolved) S/P knee surgery (Resolved) S/P lumbar spine operation (Resolved) Family History Other Breast cancer Diabetes No pertinent family history Social History Preferred Language: Nicaraguan Communication Ability: Effective Visual Impairment: No Limitations Hearing Ability: Normal General Counselor Required: No Beliefs That Will Affect Care: None marital status: Current Living Situation: Spouse Other Information That Helps Us Care for You: No Feels Safe at Home: Yes Safety Concerns: Feels Safe At This Time Smoking Status: Former smoker Tobacco Type: cigarettes, pipe and cigars Do You Dip or Chew Tobacco: No Hx Alcohol Use: No Hx Substance Use: No Physical Exam Physical Exam: On exam patient is using a walker to ambulate with his physical therapist. He has no pain to palpation or percussion of the lumbar musculature. Has reasonable strength in the lower extremities. Results & Data Vital Signs (Past 12 Hours) Vital Signs Temp Pulse Pulse Resp BP Pulse Ox 07/25/18 08:00 82 07/25/18 07:00 37.2 C 83 20 122/66 96 07/25/18 05:29 37.2 C 07/25/18 03:00 37.9 C H 90 18 150/67 H 94
--- NOTE | 2018-07-25 12:36 | Hospitalist Progress Note ---
Date of Service delayed entry date of service 07/24July 25, 2018 Assessment & Plan (1) Generalized weakness: Pt presented with c/o increased generalized weakness x 1 week with 3 falls. Denies dizziness, CP, SOB, vision changes, RILEY. Reported elevated BSGs past week. In ER pt afebrile, P: 99, R: 20, BP: 133/69, 96% RA. WBC: 10, H/H: 10.5/33.4 (baseline hgb: 9-10), Plt: 240, no significant electrolyte abnormality, UA unremarkable -Was given 500ml NSS in ER DDX weakness secondary hyperglycemia, R/O underlying infection Pt with reported hallucinations -- Generalized weakness and falls from hyperglycemia, history of DM 2 management noted below --Urine culture was negative (+) Epididymitis; confirmed by testicular US; urologist consulted, recommend Levaquin x10 days Discitis ruled out by MRI -- ammonia negative -- PT/OT ordered (2) Pancreas cancer: (3) Liver cancer: Hx metastatic pancreatic and liver cancer-neuroendocrine tumor. Follows with Dr. Arthur Huynh in [facility] Afinator held since last week secondary to fatigue Pt receives octreotide Q28 days (4) Hyperglycemia: (5) Diabetes: Glucose: 329 in ER down to 90 A1c: 7.6 on 06/26/18 -Novolog Lantus sliding scale (6) CKD (chronic kidney disease), stage IV: Cr: 3.4. Baseline 3.1 -monitor renal functions -avoid nephrotoxic agents (7) Diastolic heart failure: 2016 echo: EF: 55-60%, grade 1 diastolic dysfunction, mild mitral regurgitation, pulmonary hypertension -- on the dry side hold Torsemide (8) Hypertension: Stable -Continue amlodipine (9) Anemia: Chronic anemia. Hemoglobin: 10.5. Baseline 9-10 Patient receives Procrit every week -Monitor H&H Hemoglobin more than 8 (10) Asthma: No acute exacerbation -Continue Advair, albuterol as needed (11) Depression: -Continue Prozac (12) Chronic neck pain: - decreased gabapentin dose to 200 mg twice daily secondary to CKD DVT Prophylaxis -Heparin SQ DNR as per discussion with pt Follows with Dr Rivera/Deedee Perkins PA-C for routine care Pt was seen with Dr Taveras. See addendum (13) Low back pain: history of Spinal Stenosis MRI lumbar spine: No discitis [employer] Dr. Leija, no surgical intervention Pain controlled with PRN tramadol and warm compress continue Gabapentin Continue PT OT Subjective Follow-up for weakness, falls Seen resting in bed States he is feels improved compared to admission Back pain also improving, no leg weakness or numbness Testicular pain slowly improving No fevers or chills Denies other symptoms Review of Systems Review of Systems: All systems reviewed & are unremarkable except as noted in HPI & below Physical Exam Physical Exam: General- oriented x 3, not in distress, speaks in sentences with no effort or accessory muscle use Eyes- anicteric Neck- no JVD Lungs- clear breath sounds bilaterally, no crackles Heart- normal rate, regular rhythm; no murmurs Abdomen- normal bowel sounds, nondistended, soft, nontender Back-no tenderness, edema Extremities- no pretibial edema, no calf tenderness Neuro- alert, oriented x 3; no gross focal neurologic deficits Skin- warm & dry Results & Data Vital Signs (Past 12 Hours) Vital Signs Temp Pulse Pulse Resp BP Pulse Ox 07/25/18 11:55 36.6 C 88 18 123/66 93 07/25/18 08:00 82 07/25/18 07:00 37.2 C 83 20 122/66 96 07/25/18 05:29 37.2 C 07/25/18 03:00 37.9 C H 90 18 150/67 H 94 Laboratory Results All noted and reviewed
--- NOTE | 2018-07-25 15:35 | Pharmacy Report ---
Pharmacy Glycemic Short Note 2 - Date of Service July 25, 2018 - Glycemic Short BSG Results (Last 24 hours): 07/24/18 07/24/18 07/25/18 16:59 20:17 00:02 Glucose POC Glucose 185 H 157 H 101 H 07/25/18 07/25/18 07/25/18 05:12 05:15 05:35 Glucose POC Glucose 54 L* 60 L* 124 H 07/25/18 07/25/18 07/25/18 07:13 07:56 11:33 Glucose 83 POC Glucose 87 123 H OUTPATIENT ANTIDIABETIC REGIMEN: * Lantus 60 units qAM * Humalog 20 units UD prn ASSESSMENT: 07/25/18: * Patient received total 86 units insulin yesterday: 45 units of which were basal. * Fasting BSG = 54 today indicating patient received too much basal Lantus. Dose this AM was held. Will give single Lantus dose with dinner today based on scale. * Post-prandial BSGs were well covered and trended down toward goal yesterday; therefore continued Novolog parameters. 07/24/18: * Patient received total 93 units of insulin yesterday; 60 units of which were basal (Lantus). * Overnight BSG = 57 and Fasting BSG = 151; Lantus 60 units dose seems to be slightly high in the hospital setting. * 20 units Lantus given this AM; then 25 units BID ordered. * Post-prandial BSGs have been > 200; Novolog CR was tightened with dinner today PLAN FOR INPATIENT GLYCEMIC CONTROL: * Basal insulin: Lantus decreased to one dose at dinner based on scale as follows: * for BSG less than 120, give 0 units * for BSG 120-140, give 10 units * for BSG greater than 140, give 20 units * Bolus insulin: continued * NovoLog per scale ACHS or Q6hrs while NPO * Goal Range: Low 110 mg/dL - High 140 mg/dL * Correction Factor: 20 mg/dL/unit * Nutritional / Prandial insulin per carb ratio of 1 unit per 5 grams CHO consumed PLAN FOR DISCHARGE: * HbA1c = 7.6 on 06/26/18 indicating patient has good control of diabetes although not optimal. * Recommend continuing home insulin regimen with Lantus and Humalog as long as patient is not reporting significantly low BSGs. * Recommend f/u with outpatient provider for dose adjustments.
[2018-07-25] MEDS ORDERED: INSULIN GLARGINE SOLOSTAR 100 UNITS/ML 3 ML PEN SC SCH (16:30)
[2018-07-25] MEDS: SIMVASTATIN 20 MG TAB PO SCH (20:34)
[2018-07-26] MEDS: ACETAMINOPHEN 325 MG TAB PO PRN (02:17)
[2018-07-26] MEDS: HEPARIN SOD 5,000 UNIT/0.5 ML VIAL SQ SCH ×2 (05:25→13:25)
[2018-07-26 06:34] LABS: Basophils # (auto) 0.01 K/uL (0-0.2); Basophils % (auto) 0.1 %; Eosinophils # (auto) 0.23 K/uL (0-0.5); Eosinophils % (auto) 2.9 %; Hematocrit (blood only) 27.3 % (42-52); Hemoglobin 8.7 g/dL (14.0-18.0); Immature Granulocytes # (auto) 0.05 K/uL (0.00-0.02); Immature Granulocytes % (auto) 0.6 %; Lymphocytes # (auto) 1.15 K/uL (1.2-3.4); Lymphocytes % (auto) 14.5 %; Mean Corpuscular Hgb Conc 31.9 g/dL (32-36); Mean Corpuscular Volume 80.8 fL (80-100); Mean Platelet Volume 11.7 fL (7.4-10.4); Monocytes # (auto) 1.47 K/uL (0.11-0.59); Monocytes % (auto) 18.6 %; Neutrophils # (auto) 5.01 K/uL (1.4-6.5); Neutrophils % (auto) 63.3 %; Platelet Count 210 K/uL (130-400); RDW Coefficient of Variation 14.2 % (11.5-14.5); RDW Standard Deviation 40.7 fL (36.4-46.3); Red Blood Count 3.38 M/uL (4.7-6.1); White Blood Count 7.92 K/uL (4.8-10.8)
[2018-07-26 07:09] LABS: BUN Creatinine Ratio 15.5 (10-20); Calcium 8.7 mg/dl (8.5-10.1); Creatinine Clr Calc Pharmacy 24.6 ml/min; Est GFR (African American) 20.8; Est GFR (Non-African American) 17.9; Potassium 4.4 mmol/L (3.5-5.1)
[2018-07-26] MEDS: FLUOXETINE HCL 20 MG CAP PO SCH (08:01)
[2018-07-26] MEDS: GABAPENTIN 100 MG CAP PO SCH (08:01)
[2018-07-26] MEDS: AMLODIPINE BESYLATE 5 MG TAB PO SCH (08:01)
[2018-07-26] MEDS: CALCITRIOL 0.25 MCG CAPSULE PO SCH (08:02)
[2018-07-26] MEDS: FLUTICASONE/SALMETEROL 250/50 (ADVAIR) 14 PUFF/1 INHALER INH SCH (08:02)
[2018-07-26] MEDS: LIDOCAINE 5% 1 PATCH TD SCH (08:02)
[2018-07-26] MEDS: SEVELAMER HCL 800 MG TABLET PO SCH ×2 (08:03→12:25)
[2018-07-26] MEDS: INSULIN ASPART 100 UNITS/ML 3 ML PEN SC SCH ×2 (08:06→12:23)
--- NOTE | 2018-07-26 08:51 | Pharmacy Report ---
Pharmacy Glycemic Short Note 2 - Date of Service July 26, 2018 - Glycemic Short BSG Results (Last 24 hours): 07/25/18 07/25/18 07/25/18 11:33 16:38 20:07 Glucose POC Glucose 123 H 151 H 160 H 07/26/18 07/26/18 06:19 07:45 Glucose 74 POC Glucose 90 OUTPATIENT ANTIDIABETIC REGIMEN: * Lantus 60 units qAM * Humalog 20 units with meals + CF 10 mg/dL/unit ASSESSMENT: 07/26 * Mr. Murillo received only 38 units of insulin yesterday (20 of this being basal), and fasting is still on the lower side this AM * He was NPO for a portion of the day yesterday and has been changed back to a type 2 diabetes diet, so I suspect insulin requirements to increase. Will still be cautious with basal dosing since he has had a few hypoglycemic episodes already. * Current Novolog parameters are already quite aggressive; however, his postprandial BSGs have all been within or above range so will continue with this for now 07/25/18: * Patient received total 86 units insulin yesterday: 45 units of which were basal. * Fasting BSG = 54 today indicating patient received too much basal Lantus. Dose this AM was held. Will give single Lantus dose with dinner today based on scale. * Post-prandial BSGs were well covered and trended down toward goal yesterday; therefore continued Novolog parameters. 07/24/18: * Patient received total 93 units of insulin yesterday; 60 units of which were basal (Lantus). * Overnight BSG = 57 and Fasting BSG = 151; Lantus 60 units dose seems to be slightly high in the hospital setting. * 20 units Lantus given this AM; then 25 units BID ordered. * Post-prandial BSGs have been > 200; Novolog CR was tightened with dinner today PLAN FOR INPATIENT GLYCEMIC CONTROL: * Basal insulin: Lantus increased per the following scale, in case needs increase with increased po intake * for BSG less than 110, give 10 units * for BSG 110-160, give 20 units * for BSG greater than 160, give 25 units * Bolus insulin: continued * NovoLog per scale ACHS or Q6hrs while NPO * Goal Range: Low 110 mg/dL - High 140 mg/dL * Correction Factor: 20 mg/dL/unit * Nutritional / Prandial insulin per carb ratio of 1 unit per 5 grams CHO consumed PLAN FOR DISCHARGE: * HbA1c = 7.6 on 06/26/18. * Per CDE note, patient reports higher BSGs prior to admission and occasional lows. Difficulty managing due to pancreatic cancer; however, he does use a CGM at home. * Recommend continuing home insulin regimen with Lantus and Humalog * Recommend f/u with outpatient endo for dose adjustments
[2018-07-26] MEDS: levoFLOXacin 250 MG TABLET PO SCH (12:25)
--- NOTE | 2018-07-26 14:07 | Hospitalist Progress Note ---
Date of Service July 26, 2018 Assessment & Plan (1) Generalized weakness: Pt presented with c/o increased generalized weakness x 1 week with 3 falls. Denies dizziness, CP, SOB, vision changes, RILEY. Reported elevated BSGs past week. In ER pt afebrile, P: 99, R: 20, BP: 133/69, 96% RA. WBC: 10, H/H: 10.5/33.4 (baseline hgb: 9-10), Plt: 240, no significant electrolyte abnormality, UA unremarkable -- Generalized weakness and falls from hyperglycemia, history of DM 2 management noted below --Urine culture was negative (+) Epididymitis; confirmed by testicular US; urologist consulted, recommend Levaquin x10 days Will prescribe 250 mg daily x3 more tablets to complete 10 days of antibiotic therapy -- ammonia negative -- PT/OT ordered: Patient improved, recommended to be discharged home (2) Pancreas cancer: (3) Liver cancer: Hx metastatic pancreatic and liver cancer-neuroendocrine tumor. Follows with Dr. Arthur Huynh in [facility] Afinator held since last week secondary to fatigue Pt receives octreotide Q28 days (4) Hyperglycemia: (5) Diabetes: Glucose: 329 in ER down to 90 A1c: 7.6 on 06/26/18 -Novolog Lantus sliding scale Glycemic control consulted, recommend patient to resume his usual regimen at home Discussed with patient and his , they are comfortable with this plan Follow-up with PCP for further management (6) CKD (chronic kidney disease), stage IV: Cr: 3.4. Baseline 3.1 Creatinine remained at 3.2 (7) Diastolic heart failure: 2016 echo: EF: 55-60%, grade 1 diastolic dysfunction, mild mitral regurgitation, pulmonary hypertension Patient on the dry side continue to recommend holding torsemide until follow-up with PCP next week Resume torsemide if with leg swelling (8) Hypertension: Stable -Continue amlodipine (9) Anemia: Chronic anemia. Hemoglobin: 10.5. Baseline 9-10 Patient receives Procrit every week -Monitor H&H Hemoglobin 8.7 Follow-up with patient access director (10) Asthma: No acute exacerbation -Continue Advair, albuterol as needed (11) Depression: -Continue Prozac (12) Low back pain: history of Spinal Stenosis MRI lumbar spine: No discitis [employer] T[employer] Dr. Leija, no surgical intervention Pain controlled with PRN tramadol and warm compress continue Gabapentin, PRN tramadol, and compress at home (13) Chronic neck pain: - decreased gabapentin dose to 200 mg twice daily secondary to CKD DVT Prophylaxis -Heparin SQ DNR as per discussion with pt Discharge home today Follow-up with PCP as outlined in discharge instructions Follow-up with patient access director as scheduled next Follow-up with oncologist as scheduled Follows with Dr Rivera/Deedee Perkins PA-C for routine care Subjective Follow-up for weakness, epididymitis Seen resting in bed comfortable, in good spirits, at the bedside States he feels much better today Bleeding in the hallway with no problems, no dyspnea, no weakness no dizziness States testicular pain is much better also, no problems with voiding States back pain is also improving significantly, well controlled with tramadol Denies other symptoms Review of Systems Review of Systems: All systems reviewed & are unremarkable except as noted in HPI & below Physical Exam Physical Exam: General- oriented x 3, not in distress, speaks in sentences with no effort or accessory muscle use Eyes- anicteric Neck- no JVD Lungs- clear breath sounds bilaterally Heart- normal rate, regular rhythm; no murmurs Abdomen- normal bowel sounds, nondistended, soft, nontender Extremities- no pretibial edema, no calf tenderness Neuro- alert, oriented x 3; no gross focal neurologic deficits Skin- warm & dry Results & Data Vital Signs (Past 12 Hours) Vital Signs Temp Pulse Pulse Resp BP Pulse Ox 07/26/18 12:04 36.5 C 64 18 146/70 H 96 07/26/18 07:30 78 07/26/18 07:18 36.7 C 80 20 126/64 93 07/26/18 03:43 36.8 C 80 18 126/63 96 Laboratory Results Laboratory Results - last 24 hr 07/25/18 07/25/18 07/26/18 16:38 20:07 06:19 WBC RBC Hgb Hct MCV MCH MCHC RDW Std Deviation RDW Coeff of José Miguel Plt Count MPV Immature Gran % (Auto) Neut % (Auto) Lymph % (Auto) Hitchcock % (Auto) Eos % (Auto) Baso % (Auto) Immature Gran # (Auto) Neut # (Auto) Lymph # (Auto) Hitchcock # (Auto) Eos # (Auto) Baso # (Auto) Sodium 137 Potassium 4.4 Chloride 105 Carbon Dioxide 24 Anion Gap 8.0 BUN 51 H Creatinine 3.28 H Est Cr Clr Drug Dosing 24.6 Est GFR ( Amer) 20.8 Est GFR (Non-Af Amer) 17.9 BUN/Creatinine Ratio 15.5 Glucose 74 POC Glucose 151 H 160 H Calcium 8.7 07/26/18 07/26/18 07/26/18 06:19 07:45 11:30 WBC 7.92 RBC 3.38 L Hgb 8.7 L Hct 27.3 L MCV 80.8 MCH 25.7 MCHC 31.9 L RDW Std Deviation 40.7 RDW Coeff of José Miguel 14.2 Plt Count 210 MPV 11.7 H Immature Gran % (Auto) 0.6 Neut % (Auto) 63.3 Lymph % (Auto) 14.5 Hitchcock % (Auto) 18.6 Eos % (Auto) 2.9 Baso % (Auto) 0.1 Immature Gran # (Auto) 0.05 H Neut # (Auto) 5.01 Lymph # (Auto) 1.15 L Hitchcock # (Auto) 1.47 H Eos # (Auto) 0.23 Baso # (Auto) 0.01 Sodium Potassium Chloride Carbon Dioxide Anion Gap BUN Creatinine Est Cr Clr Drug Dosing Est GFR ( Amer) Est GFR (Non-Af Amer) BUN/Creatinine Ratio Glucose POC Glucose 90 233 H Calcium
--- NOTE | 2018-07-26 16:26 | Discharge Summary ---
Date of Service July 26, 2018 Admission HPI Per Admitting Provider Pt is 73 y/o M with PMH pancreatic/liver cancer, CKD IV, diastolic heart failure, asthma, insulin-dependent DM II, depression, hyperparathyroidism, HTN presented to ER with complaint of increased weakness. Patient reports increased generalized weakness for the past week. Reports 3 falls over the past week last fall being 3 AM this morning. Patient states was trying to get off the toilet and legs were too weak and he fell. Reports other falls were during the middle the night and he woke up on the floor, does not remember the fall. Patient unsure if he hit his head. He denies any known injuries. Reports chronic neck and back pain and does not feel these are worse. Reports chronic intermittent nonproductive cough and chronic stuffy nose. Patient states blood sugars have been running greater than 400 for the past week. States his been eating and drinking normally. States has been urinating a lot. Patient states past couple of days he has been having visual hallucinations, worse with closing his eyes. Describes things trying to grab at him in tornado like objects. Also reports he feels like he is out of body. Follows with Dr. Arthur Huynh in [place] for pancreatic/liver cancer. Is on octreotide every 28 days. Reports last visit approximately 1 week ago and he was taken off of Afinator secondary to reported fatigue. Patient receives Procrit injections every week. Denies fever/chills, diaphoresis, N/V/D, RILEY, dizziness, vision changes, CP, SOB, orthopnea, palpitations, hemoptysis, sore throat, choking, otalgia, abdominal pain, paresthesias, extremity edema, rashes, dysuria, hematuria. Admission Exam Per Admitting Provider General: no acute distress, overweight Head: normocephalic, atraumatic Eyes: PERRL, EOM's intact, conjunctiva non-injected, anicteric ENT: normal inspection external ears, nose, mucous membranes mildly dry Neck: supple, trachea midline Lungs: clear, no respiratory distress, no wheezing/rhonchi/rales CV: RRR, no murmur, no pretibial edema; right posterior lower rib tenderness to palpation, no crepitus Abd: normal BS, soft, non-tender Ext: no cyanosis, no calf tenderness, 4/5 strength bilateral upper and lower extremities Neuro: A&O x 3, no focal deficits noted, flat affect Skin: warm, dry Principal Diagnosis Generalized weakness, multifactorial: Infection from epididymitis, dehydration, hyperglycemia, back pain Discharge Exam General- oriented x 3, not in distress, speaks in sentences with no effort or accessory muscle use Eyes- anicteric Neck- no JVD Lungs- clear breath sounds bilaterally Heart- normal rate, regular rhythm; no murmurs Abdomen- normal bowel sounds, nondistended, soft, nontender Extremities- no pretibial edema, no calf tenderness Neuro- alert, oriented x 3; no gross focal neurologic deficits Skin- warm & dry Discharge Data Allergies Allergy/AdvReac Type Severity Reaction Status Date / Time Sulfa (Sulfonamide Allergy Mild RASH Verified 07/22/18 17:13 Antibiotics) NSAIDS (Non-Steroidal Allergy Unknown "NO Unverified 07/22/18 17:13 Anti-Inflamma NSAIDS"due to kidney disease Consultations 07/22/18 17:57 ED Decision to Admit Stat 07/22/18 20:20 Consult Case Management - Discharge Planning Routine 07/23/18 10:36 Consult Urology Routine 07/24/18 19:18 Consult Orthopedic Surgery Routine Ordered Studies 07/22/18 15:22 CT head/brain wo con Stat Impression: No acute intracranial abnormality. 07/22/18 15:23 CT chest wo con Stat IMPRESSION: 1. No acute intrathoracic injury. 2. Multiple hepatic masses highly concerning for metastatic disease. Follow-up is necessary. 3. Lobular soft tissue mass at the level of the pancreatic neck slowly increasing in size since 2012, indeterminate. Follow-up is also required as neoplasm cannot excluded. CT abd pelvis wo con Stat IMPRESSION: 1. Possible acute fracture of the posterior right 11th rib. Correlate for point tenderness. Several old rib fractures are also apparent. 2. No other evidence of acute intra-abdominal injury allowing for this nonco ntrast examination. 3. Multiple (at least 15) lesions throughout the liver with a highly suspicious morphology and new from prior exam. These should be considered metastases until proven otherwise. Outpatient follow-up is required. 4. Postsurgical or posttreatment changes of the left hepatic lobe may also be present. Correlate with surgical or treatment history. 5. Slow growth of a multilobular soft tissue mass along the pancreatic neck, which may be superior to the pancreatic neck and may or may not arise from the pancreas. This has increased in size since 2013 though its slow growth rate makes this lesion is indeterminate. This is suboptimally evaluated without intravenous contrast. 6. Indeterminant 2.8 cm left renal lesion. This is also slowly increased in size since 2012 and suboptimally evaluated without intravenous contrast. 7. Cholelithiasis. 07/22/18 15:28 CT cervical spine wo con Stat IMPRESSION: No fractures within the cervical spine. 07/23/18 US abdomen complete Urgent 1. Multiple ill-defined hypoechoic lesions throughout the liver measuring up to 2.5 cm suggest metastasis from unknown primary. 2. Cholelithiasis and gallbladder sludge without sonographic evidence of acute cholecystitis. 3. No biliary ductal dilation. 4. Suggestion of chronic medical renal disease. 5. Indeterminate 2.9 cm complex hypoechoic lesion about the inferior pole left kidney suggests a complex cyst. 07/23/18 10:36 MR lumbar spine wo con Routine IMPRESSION: 1. No acute fracture, subluxation, focal bone marrow edema or evidence of osseous metastasis. 2. Prior laminectomy at the L3 and L4 levels. 3. Disc osteophyte complex formation with severe facet arthrosis at L3-L4 flattens the ventral thecal sac and results in severe bilateral foraminal narrowing. 4. Additional degenerative changes as above with varying degrees of multilevel foraminal stenosis. 5. Mild central canal stenosis at L4-L5. US scrotum/testicle Routine IMPRESSION: 1. Slight increased thickening and increased color flow within the left epididymis in comparison to the right. This could represent a mild epididymitis. 2. Mild atrophy of the bilateral testicles. 3. Small bilateral hydroceles. Hospital Course (1) Generalized weakness: Pt presented with c/o increased generalized weakness x 1 week with 3 falls. RILEY. Reported elevated BSGs past week. In ER pt afebrile, P: 99, R: 20, BP: 133/69, 96% RA. WBC: 10, H/H: 10.5/33.4 (baseline hgb: 9-10), Plt: 240, no significant electrolyte abnormality, UA unremarkable -- Generalized weakness and falls multifactorial: From underlying infection, epididymitis Urine culture was negative (+) Epididymitis; confirmed by testicular US [facility] physicians group urologist recommend Levaquin x10 days Will prescribe 250 mg daily x3 more tablets to complete 10 days of antibiotic therapy Please repeat EKG and follow-up with PCP on July 30 to monitor QT Component of dehydration Torsemide held, given IV fluids Reduced torsemide 20 g p.o. twice daily Fluid restriction increased to 1800 cc/day Monitor volume status and follow-up with PCP, adjust torsemide accordingly From hyperglycemia Management noted below From severe low back pain Management noted below -- ammonia negative -- PT/OT ordered: Patient improved, recommended to be discharged home (2) Pancreas cancer: (3) Liver cancer: Hx metastatic pancreatic and liver cancer-neuroendocrine tumor. Follows with Dr. Arthur Huynh in [place] Had Afinator held since last week secondary to fatigue Pt receives octreotide Q28 days (4) Hyperglycemia: (5) Diabetes: Glucose: 329 in ER down to 90 A1c: 7.6 on 06/26/18 -Novolog Lantus sliding scale Glycemic control consulted, recommend patient to resume his usual regimen at home Discussed with patient and his , they are comfortable with this plan Follow-up with PCP for further management (6) CKD (chronic kidney disease), stage IV: Cr: 3.4. Baseline 3.1 Creatinine remained at 3.2 (7) Diastolic heart failure: 2017 echo: EF: 55-60%, grade 1 diastolic dysfunction, mild mitral regurgitation, pulmonary hypertension Patient presented with element of dehydration Torsemide held, given IV fluids Reduced torsemide 20 g p.o. twice daily Fluid restriction increased to 1800 cc/day Monitor volume status and follow-up with PCP, adjust torsemide accordingly (8) Hypertension: Stable -Continue amlodipine (9) Anemia: Chronic anemia. Hemoglobin: 10.5. Baseline 9-10 Patient receives Procrit every week -Monitor H&H Hemoglobin 8.7 Repeat CBC and follow-up with PCP on July 30 Discussed with anemia clinic, they will check CBC results and advise patient accordingly regarding Procrit Follow-up with trip motor operator and anemia clinic (10) Asthma: No acute exacerbation -Continue Advair, albuterol as needed (11) Depression: -Continue Prozac (12) Chronic neck pain: --Decreased gabapentin dose to 200 mg twice daily in light of low GFR and to prevent side effects Like been stable since decreasing dose Low back pain, Lumbar Spinal and Foraminal Stenosis history of Spinal Stenosis MRI lumbar spine: No discitis 1. No acute fracture, subluxation, focal bone marrow edema or evidence of osseous metastasis. 2. Prior laminectomy at the L3 and L4 levels. 3. Disc osteophyte complex formation with severe facet arthrosis at L3-L4 flattens the ventral thecal sac and results in severe bilateral foraminal narrowing. . Additional degenerative changes as above with varying degrees of multilevel foraminal stenosis. 5. Mild central canal stenosis at L4-L5. Consulted [place] management specialist Dr. Leija, surgical intervention not recommended at this point Pain controlled with PRN tramadol and warm compress continue Gabapentin, PRN tramadol, and compress at home Discharge home Follow-up with PCP as outlined in discharge instructions Follow-up with trip motor operator as scheduled next Follow-up with oncologist as scheduled Follow-up with anemia clinic Total Time Total Time Spent Total Time Spent (In Minutes): 50 minutes Discharge Plan Discharge Items Patient Disposition: Home - Self-Care Reason For Visit: WEAKNESS Discharge Diagnosis: Weakness, multifactorial: Likely from underlying infection -epididymitis, dehydration, elevated blood sugars Discharge Goals: Diagnostic testing and Therapeutic intervention Activity: As commented below Activity Comment: No heavy exertion, resume activity gradually as tolerated Lifting: Wait until after follow-up appointment Exercise/Sports: Wait until after follow-up appointment Driving/Machine Use Comment: No driving until reevaluated by primary care physician Non-emergency contact: Primary Care Provider Call non-emergency contact if: you have any medication questions, your symptoms worsen, your pain is not controlled and you have a fever Follow-up/Referrals: Deedee Perkins PA-C [Primary Care Provider] - Diet: Carb Consistent or DM2 and Heart Healthy Fluids: 1800ml (7 cups) Addtl Provider Instructions: Please follow-up with Dr. Rivera on July 30, 2018Sunday at 2:05 PM Follow-up with trip motor operator Dr. Clancy as scheduled. Follow-up with oncologist as scheduled. Please call primary care physician or return to the ER immediately if with recurrence of symptoms, weakness, fevers or chills. Prescriptions: New levofloxacin 250 mg Tablet 250 mg PO Q2D Qty: 3 RF: 0 tramadol 50 mg Tablet 50 mg PO Q12 PRN (Reason: pain) 7 Days Qty: 10 RF: 0 gabapentin 100 mg Capsule 200 mg PO BID 30 Days Qty: 120 RF: 0 Continued fluticasone propion-salmeterol 250-50 mcg/dose Blister With Device 2 inh INHALATION DAILY RF: 0 levalbuterol HCl 0.63 mg/3 mL Solution For Nebulization 0.63 mg INHALATION DIRECTED PRN (Reason: Shortness Of Breath) RF: 0 simvastatin 20 mg tablet 20 mg PO HS RF: 0 ranitidine HCl 150 mg tablet 150 mg PO HS RF: 0 Glucagon Emergency Kit (human) 1 mg Recon Soln 1 mg subcut DIRECTED PRN (Reason: Hypoglycemia) RF: 0 epoetin sabrina 10,000 unit/mL Solution 2,000 unit subcut WK RF: 0 insulin lispro [Humalog KwikPen Insulin] 100 unit/mL Insulin Pen 20 unit SUBCUT UD PRN (Reason: diabetes) RF: 0 Lantus Solostar U-100 Insulin 100 unit/mL (3 mL) insulin pen 60 unit subcut QAM RF: 0 sevelamer carbonate 800 mg tablet 2 tab PO TIDM RF: 0 Sandostatin LAR [place] 10 mg Suspension,Extended Rel Recon 10 mg IM Q28D RF: 0 guaifenesin [Mucinex] 600 mg Tablet Extended Release 12hr 600 mg PO DIRECTED PRN (Reason: Congestion) RF: 0 acetaminophen 325 mg Tablet 650 mg PO Q4H PRN (Reason: pain/ fever) RF: 0 amlodipine 5 mg tablet 5 mg PO QAM RF: 0 calcitriol 0.25 mcg capsule 0.25 mcg PO QAM RF: 0 ProAir RespiClick 90 mcg/actuation Aerosol Powdr Breath Activated 2 inh INHALATION DIRECTED PRN (Reason: Shortness Of Breath) RF: 0 ergocalciferol (vitamin D2) 2,000 unit Tablet 2,000 unit PO .Q2WK RF: 0 fluoxetine 20 mg Capsule 20 mg PO DAILY RF: 0 Changed torsemide 20 mg Tablet 20 mg PO BID 30 Days Qty: 0 RF: 0 Discontinued torsemide 20 mg Tablet 60 mg PO QAM RF: 0 gabapentin 400 mg capsule 400 mg PO BID RF: 0 Stand-Alone Forms: [facility] Discharge Orders: Discharge Order (Routine); Ordered 07/26/18 Ordered By: Bhupendra Taveras Admission Data Admit Date/Time: 07/22/18 18:58 Attending Provider: Bhupendra Taveras Admit Provider: Bhupendra Taveras Primary Care Provider: Deedee Perkins Other Providers: Edi Hoyt ; Fransico Hernandez ; Omid Mendez I. ; Eliceo Zarate ; Michelle Cosby ; Quang Staton II ; Frances Decker ; Nahum Leija ; Bhupendra Taveras Service: Telemetry Medical Other Interventions: Discharge Summary Assessment (RN) Last Done: 07/26/18 14:49 DC Date/Time DO NOT enter until pt leaves facility: 07/26/18 15:46
[2018-07-26] MEDS ORDERED: INSULIN GLARGINE SOLOSTAR 100 UNITS/ML 3 ML PEN SC SCH (16:30)
--- OUTSIDE RECORDS SUMMARY | 2018-07-29 15:31 | External Medical Summary | Continuity of Care Document ---
:1945 Author Name Jaden Baldwin, Provider Address Unavailable Unavailable , Care Team Providers Name Role Phone Quang Staton II, [email or web address] PCP, UNKNOWN Unavailable Unavailable Problems Active medical history not documented Allergies and Adverse Reactions Allergy history not documented Medications Medications not documented Procedures Procedures not documented Immunizations Immunizations not documented Plan of Treatment Planned Observations Planned Goals not documented Results No Known Results Results not documented
== END 2018-07-26 15:46 | disposition home or self-care (01) | DRG 638 ==
LOC: ED 14:48 → 2W 18:58

== ENCOUNTER 2018-08-20 18:34 | Inpatient (IN) ==
[2018-08-20] MEDS ORDERED: CEFEPIME 2,000 MG/20 ML VIAL IV STA (19:03)
[2018-08-20] MEDS ORDERED: SODIUM CHLORIDE 0.9% 1000ML 1,000 ML IV ONE (19:03)
[2018-08-20] MEDS ORDERED: ACETAMINOPHEN 1,000 MG/100 ML VIAL IV STA (19:03)
[2018-08-20] MEDS ORDERED: ONDANSETRON INJ 2 MG/ML 2 ML VIAL IV STA (19:03)
[2018-08-20 20:14] LABS: INR 1.1 (0.9-1.1); Partial Thromboplastin Ratio 0.9; Partial Thromboplastin Time 25.1 Seconds (21.0-31.0)
[2018-08-20 20:23] LABS: Albumin Level 2.8 gm/dl (3.4-5.0); BUN Creatinine Ratio 15.1 (10-20); Calcium 8.3 mg/dl (8.5-10.1); Est GFR (African American) 26.4; Est GFR (Non-African American) 22.8; Magnesium 1.7 mg/dl (1.8-2.4); Potassium 4.7 mmol/L (3.5-5.1)
--- NOTE | 2018-08-20 20:23 | XRay Report ---
XR chest 1V portable CLINICAL HISTORY: 73 years-old Male presenting with Sepsis. TECHNIQUE: Portable upright AP view of the chest was obtained. COMPARISON: 07/22/2018. FINDINGS: Atherosclerosis of the aortic arch. Cardiac silhouette top normal in size. Minimal basilar opacities. No pleural effusion or pneumothorax. Degenerative changes of the thoracic spine. Posterior cervical fusion hardware noted. IMPRESSION: 1. Minimal basilar opacities likely atelectasis or scarring. No convincing evidence of acute cardiop ulmonary disease. Electronically signed by: Cody Connor M.D. 08/20/2018 8:22 PM
[2018-08-20 20:25] LABS: Albumin Globulin Ratio 0.7 (0.9-2); Bilirubin,Total 0.4 mg/dl (0.2-1); Globulin 4.1 gm/dl (2.5-4.0); Total Protein 6.9 gm/dl (6.4-8.2)
--- NOTE | 2018-08-20 20:30 | Emergency Department Note ---
Entered by Deedee Sheth acting as a scribe for History of Present Illness General Chief complaint: Hyperglycemia Stated complaint: SUGAR IS ALL OVER THE PLACE, FATIGUE, VOMITING Time Seen by Provider: 08/20/18 18:59 Source: patient Mode of arrival: ambulatory Limitations: no limitations History of Present Illness Onset (ago): day(s) 2 Location: head (global), upper extremity (global) and lower extremity (global) Pain Consistency: + intermittent Maximum Pain Intensity: 0 Quality: + other (hyperglycemia) Associated symptoms: + fever/chills (The patient complains of fever. ), + nausea/vomiting (The patient complains of vomiting. ), + shortness of breath, + weakness (fatigue) and + other (The patient complains of nasal congestion and urinary urgency. The patient denies abdominal pain, sore throat, and urinary bu rning.) Treatments prior to arrival: none The patient is a 73 year old male with a history of diabetes, hypertension, liver cancer, pancreatic cancer, and CKD who presents to the ED with complaints of intermittent hyperglycemia that onset 2 days ago. The patient states that his sugars have been all over the place. He notes that the highest was 450 and the lowest was 48. The patient complains of chills, fatigue, vomiting, cough, shortness of breath, nasal congestion, and urinary urgency. The patient denies abdominal pain, sore throat, urinary burning, and rash. He notes that he has not taken any medications today for his fever. The patient denies sick contacts. Home Medications Home Medications Medication Instructions Recorded Confirmed Type Glucagon Emergency Kit (human) 1 mg SUBCUT DIRECTED PRN 07/22/18 08/20/18 History Lantus Solostar U-100 Insulin 60 unit SUBCUT QPM 07/22/18 08/20/18 History ProAir RespiClick 2 inh INHALATION Q4 PRN 07/22/18 08/20/18 History Sandostatin LAR Depot 10 mg IM .ON HOLD 07/22/18 08/20/18 History acetaminophen 650 mg PO Q4H PRN 07/22/18 08/20/18 History amlodipine 5 mg PO QAM 07/22/18 08/20/18 History calcitriol 0.25 mcg PO QAM 07/22/18 08/20/18 History epoetin sabrina 0 unit SUBCUT .[id number] 07/22/18 08/20/18 History ergocalciferol (vitamin D2) 2,000 unit PO DAILY 07/22/18 08/20/18 History fluoxetine 20 mg PO DAILY 07/22/18 08/20/18 History fluticasone propion-salmeterol 2 inh INHALATION DAILY PRN 07/22/18 08/20/18 History insulin lispro [Humalog KwikPen 20 unit SUBCUT UD PRN 07/22/18 08/20/18 History Insulin] levalbuterol HCl 0.63 mg INHALATION DIRECTED PRN 07/22/18 08/20/18 History ranitidine HCl 150 mg PO HS 07/22/18 08/20/18 History sevelamer carbonate 2 tab PO TIDM 07/22/18 08/20/18 History simvastatin 20 mg PO HS 07/22/18 08/20/18 History gabapentin 200 mg PO BID 30 Days #120 cap 07/26/18 08/20/18 Rx torsemide 20 mg PO BID 30 Days #0 tab 07/26/18 08/20/18 Rx Allergies Allergy/AdvReac Type Severity Reaction Status Date / Time Sulfa (Sulfonamide Allergy Mild RASH Verified 08/20/18 19:33 Antibiotics) NSAIDS (Non-Steroidal Allergy Unknown "NO Unverified 08/20/18 19:33 Anti-Inflamma NSAIDS"due to kidney disease Past Med/Surg History Medical History Anemia Asthma CKD (chronic kidney disease), stage IV Chronic neck pain Depression Diabetes Diastolic heart failure Hypertension Liver cancer No pertinent family history Pancreas cancer Surgical History H/O cervical spine surgery S/P foot surgery S/P knee surgery S/P lumbar spine operation Family History Other Breast cancer Diabetes No pertinent family history Social History Preferred Language: Uzbek Communication Ability: Effective Visual Impairment: No Limitations Hearing Ability: Normal Beliefs That Will Affect Care: None marital status: Current Living Situation: Spouse Feels Safe at Home: Yes Smoking Status: Never smoker Tobacco Type: cigarettes, pipe and cigars Hx Alcohol Use: No Hx Substance Use: No Review of Systems See HPI for pertinent positives & negatives. and A total of 10 systems reviewed and were otherwise negative Physical Exam Vital Signs Vital Signs - 24 hr 08/20/18 18:37 08/20/18 19:03 08/20/18 20:38 Temperature 38.3 C H Temperature Source Oral Sepsis Recent Fever Within 48 Hours No Sepsis Action Taken by Nursing No Action Required Pulse Rate 126 H 105 H 111 H Pulse Rate from SpO2 Sensor 110 H Pulse Rhythm Regular Regular Pulse Strength Normal Respiratory Rate 20 20 23 Respiratory Effort / Characteristics Non-Labored Spontaneous Respiratory Depth Normal Respiratory Pattern Regular Blood Pressure 135/67 115/69 Blood Pressure Mean 89 84 Blood Pressure Position Sitting Pulse Oximetry 95 94 89 L Oxygen Delivery Method Room Air Room Air 08/20/18 20:55 08/20/18 20:56 08/20/18 21:00 Temperature Temperature Source Sepsis Recent Fever Within 48 Hours Sepsis Action Taken by Nursing Pulse Rate 109 H 107 H 107 H Pulse Rate from SpO2 Sensor 108 H 107 H 107 H Pulse Rhythm Pulse Strength Respiratory Rate 17 21 28 H Respiratory Effort / Characteristics Respiratory Depth Respiratory Pattern Blood Pressure 126/66 123/67 Blood Pressure Mean 86 85 Blood Pressure Position Pulse Oximetry 92 93 93 Oxygen Delivery Method 08/20/18 21:01 08/20/18 21:15 08/20/18 21:16 Temperature Temperature Source Sepsis Recent Fever Within 48 Hours Sepsis Action Taken by Nursing Pulse Rate 106 H 104 H 105 H Pulse Rate from SpO2 Sensor 106 H 100 H 105 H Pulse Rhythm Pulse Strength Respiratory Rate 17 21 17 Respiratory Effort / Characteristics Respiratory Depth Respiratory Pattern Blood Pressure 159/77 H Blood Pressure Mean 104 Blood Pressure Position Pulse Oximetry 94 90 93 Oxygen Delivery Method 08/20/18 21:30 08/20/18 21:31 08/20/18 21:45 Temperature Temperature Source Sepsis Recent Fever Within 48 Hours Sepsis Action Taken by Nursing Pulse Rate 104 H 103 H 102 H Pulse Rate from SpO2 Sensor 105 H 103 H 103 H Pulse Rhythm Pulse Strength Respiratory Rate 20 12 18 Respiratory Effort / Characteristics Respiratory Depth Respiratory Pattern Blood Pressure 147/71 H 110/48 L Blood Pressure Mean 96 68 Blood Pressure Position Pulse Oximetry 92 93 92 Oxygen Delivery Method 08/20/18 22:00 08/20/18 22:01 08/20/18 22:12 Temperature 37.2 C Temperature Source Oral Sepsis Recent Fever Within 48 Hours Sepsis Action Taken by Nursing Pulse Rate 99 H 99 H Pulse Rate from SpO2 Sensor 99 H 99 H Pulse Rhythm Pulse Strength Respiratory Rate 21 22 Respiratory Effort / Characteristics Respiratory Depth Respiratory Pattern Blood Pressure 131/55 L Blood Pressure Mean 80 Blood Pressure Position Pulse Oximetry 95 94 Oxygen Delivery Method GENERAL: Patient is in no acute distress. HEENT: No acute trauma, normocephalic atraumatic, mucous membranes dry, no nasal congestion, no scleral icterus. NECK: No stridor, no adenopathy, no meningismus, trachea is midline. LUNGS: Crackles at both bases, no wheezes, no respiratory distress. HEART: Tachycardic with a regular rhythm, no murmurs. ABDOMEN: Soft, nontender, bowel sounds positive, no hernias, no peritonitis. EXTREMITIES: No cyanosis, full range of motion of all the joints without pain or difficulty, no signs for acute trauma. Mild bilateral pedal edema. NEUROLOGIC: Oriented x 3, no acute motor or sensory deficits, no focal weakness. SKIN: No rash, no jaundice, no diaphoresis. Course 1900: Past medical records reviewed. The patient was evaluated in room A09B. A complete history and physical examination was performed. 2115: I have re-evaluated the patient. He states that he is feeling better. 2123: I have been informed that the CBC machines are offline. 2126: I reviewed the patient's case with Dr. Mechelle Guillen. He will evaluate the patient for further management. Consultations Consultation #1: 2126: I reviewed the patient's case with Dr. Mechelle Guillen. He will evaluate the patient for further management. Administered Medications Discontinued Medications Acetaminophen (Ofirmev) 1,000 mg in 100 mls @ 400 mls/hr IV NOW STA Stop: 08/20/18 19:17 Last Infusion: 08/20/18 21:20 Dose: 0 mls/hr Documented by: [id number] Admin: 08/20/18 21:01 Dose: 400 mls/hr Documented by: [id number] Cefepime HCl (Maxipime) 2,000 mg in 20 mls @ 5 mls/min IV NOW STA; Protocol Stop: 08/20/18 19:06 Last Admin: 08/20/18 21:00 Dose: 5 mls/min Documented by: [id number] Sodium Chloride (Nss 1000ml) 1,000 mls @ 999 mls/hr IV .Q1H1M ONE Stop: 08/20/18 20:03 Last Infusion: 08/20/18 22:04 Dose: 0 mls/hr Documented by: [id number] Admin: 08/20/18 21:01 Dose: 999 mls/hr Documented by: [id number] Magnesium Sulfate/Dextrose (Magnesium Sulfate / D5w) 1 gm in 100 mls @ 100 mls/hr IV ONE ONE Stop: 08/20/18 21:46 Last Infusion: 08/20/18 22:04 Dose: 0 mls/hr Documented by: [id number] Admin: 08/20/18 21:01 Dose: 100 mls/hr Documented by: [id number] Ondansetron HCl (Zofran) 4 mg IV NOW STA Stop: 08/20/18 19:04 Last Admin: 08/20/18 21:01 Dose: 4 mg Documented by: [id number] Medical Decision Making Differential Diagnosis Differential diagnosis includes: Sepsis or bacteremia, UTI, PNA or CHF, cellulitis, pyelonephritis, viral il lness, dehydration, electrolyte imbalance. Medical Records Attestation: I reviewed the patient's medical records. Home Medications Current Medication List: was personally reviewed by me Laboratory Data Attestation: I reviewed the patient's lab results. Result diagrams: 08/20/18 19:54 08/20/18 19:54 Lab Results 08/20/18 08/20/18 08/20/18 Range/Units 19:19 19:54 19:54 PT 11.0 (9.0-12.0) Seconds INR 1.1 (0.9-1.1) APTT 25.1 (21.0-31.0) Seconds PTT Ratio 0.9 Sodium 138 (136-145) mmol/L Potassium 4.7 (3.5-5.1) mmol/L Chloride 103 (98-107) mmol/L Carbon Dioxide 28 (21-32) mmol/L Anion Gap 7.0 (3-11) BUN 41 H (7-18) mg/dl Creatinine 2.69 H (0.6-1.4) mg/dl Est Cr Clr Drug Dosing 30.0 ml/min Est GFR ( Amer) 26.4 Est GFR (Non-Af Amer) 22.8 BUN/Creatinine Ratio 15.1 (10-20) Glucose 243 H (70-99) mg/dl POC Glucose 264 H (70-99) Lactate (0.4-2.0) mmol/L Calcium 8.3 L (8.5-10.1) mg/dl Magnesium 1.7 L (1.8-2.4) mg/dl Total Bilirubin 0.4 (0.2-1) mg/dl AST 25 (15-37) U/L ALT 31 (12-78) U/L Alkaline Phosphatase 128 H (45-117) U/L Total Protein 6.9 (6.4-8.2) gm/dl Albumin 2.8 L (3.4-5.0) gm/dl Globulin 4.1 H (2.5-4.0) gm/dl Albumin/Globulin Ratio 0.7 L (0.9-2) Procalcitonin (0-0.5) ng/ml Influenza Type A Ag (Neg) Influenza Type B Ag (Neg) 08/20/18 08/20/18 08/20/18 Range/Units 19:54 19:54 20:52 PT (9.0-12.0) Seconds INR (0.9-1.1) APTT (21.0-31.0) Seconds PTT Ratio Sodium (136-145) mmol/L Potassium (3.5-5.1) mmol/L Chloride (98-107) mmol/L Carbon Dioxide (21-32) mmol/L Anion Gap (3-11) BUN (7-18) mg/dl Creatinine (0.6-1.4) mg/dl Est Cr Clr Drug Dosing ml/min Est GFR ( Amer) Est GFR (Non-Af Amer) BUN/Creatinine Ratio (10-20) Glucose (70-99) mg/dl POC Glucose 236 H (70-99) Lactate 1.3 (0.4-2.0) mmol/L Calcium (8.5-10.1) mg/dl Magnesium (1.8-2.4) mg/dl Total Bilirubin (0.2-1) mg/dl AST (15-37) U/L ALT (12-78) U/L Alkaline Phosphatase (45-117) U/L Total Protein (6.4-8.2) gm/dl Albumin (3.4-5.0) gm/dl Globulin (2.5-4.0) gm/dl Albumin/Globulin Ratio (0.9-2) Procalcitonin 0.21 (0-0.5) ng/ml Influenza Type A Ag (Neg) Influenza Type B Ag (Neg) 08/20/18 Range/Units 21:01 PT (9.0-12.0) Seconds INR (0.9-1.1) APTT (21.0-31.0) Seconds PTT Ratio Sodium (136-145) mmol/L Potassium (3.5-5.1) mmol/L Chloride (98-107) mmol/L Carbon Dioxide (21-32) mmol/L Anion Gap (3-11) BUN (7-18) mg/dl Creatinine (0.6-1.4) mg/dl Est Cr Clr Drug Dosing ml/min Est GFR ( Amer) Est GFR (Non-Af Amer) BUN/Creatinine Ratio (10-20) Glucose (70-99) mg/dl POC Glucose (70-99) Lactate (0.4-2.0) mmol/L Calcium (8.5-10.1) mg/dl Magnesium (1.8-2.4) mg/dl Total Bilirubin (0.2-1) mg/dl AST (15-37) U/L ALT (12-78) U/L Alkaline Phosphatase (45-117) U/L Total Protein (6.4-8.2) gm/dl Albumin (3.4-5.0) gm/dl Globulin (2.5-4.0) gm/dl Albumin/Globulin Ratio (0.9-2) Procalcitonin (0-0.5) ng/ml Influenza Type A Ag Neg for Influ A (Neg) Influenza Type B Ag Neg for Influ B (Neg) Imaging Data Radiologist's Impression: Radiology results as stated below per my review and the radiologist's interpretation: XR chest 1V portable CLINICAL HISTORY: 73 years-old Male presenting with Sepsis. TECHNIQUE: Portable upright AP view of the chest was obtained. COMPARISON: 07/22/2018. FINDINGS: Atherosclerosis of the aortic arch. Cardiac silhouette top normal in size. Minimal basilar opacities. No pleural effusion or pneumothorax. Degenerative changes of the thoracic spine. Posterior cervical fusion hardware noted. IMPRESSION: 1. Minimal basilar opacities likely atelectasis or scarring. No convincing evidence of acute cardiopulmonary disease. Electronically signed by: Cody Connor M.D. 08/20/2018 8:22 PM Dictated: 08/20/182020 Transcribed: 08/20/182020 ECG Data Attestation: I personally reviewed and interpreted this ECG as follows: Indication: other (hyperglycemia) Rate (beats per minute): 108 Rhythm: sinus tachycardia Findings: no PVC and no ST elevation Blood Pressure Blood Pressure Findings: Normal blood pressure MDM Narrative The patient's CBC is pending as the CBC machine is reportedly off-line. There was no coagulopathy. Creatinine was elevated but this is baseline for the patient looking back at previous testing. The lactic acid level was not e levated making sepsis less likely. Magnesium slightly low at 1.7. No evidence for concerning LFT elevation. Influenza testing was negative. Procalcitonin level was normal. Blood cultures are pending. Chest film showed some atelectasis, no obvious pneumonia. EKG showed a sinus tachycardia, no acute ischemia. On exam, there was no evidence for cellulitis. Urinalysis result is pending as the patient has not yet provided a sample. The patient was aggressively managed as he presented tachycardic, febrile and weak. He received IV Tylenol, IV cefepime, IV magnesium, IV Zofran and IV saline--he seems to be feeling better and he looks improved. The patient has an infection, the source is unclear at this point. Further work-up is warranted. Early sepsis is of course a concern, the patient understands the results of his work-up. He has agreed to hospitalization. I spoke to case management, the on-call hospitalist was consulted. Impression & Plan Weakness, Dehydration, Fever, Tachycardia Discharge Plan Visit Data Chief Complaint: Hyperglycemia Stated Complaint: SUGAR IS ALL OVER THE PLACE, FATIGUE, VOMITING ED Provider: Mateo Andujar Discharge Problem: Weakness, Dehydration, Fever, Tachycardia Patient Disposition: Being Evaluated by Hospitalist Forms Stand Alone Forms: [facility] Prescriptions Prescriptions: No Action fluticasone propion-salmeterol 250-50 mcg/dose Blister With Device 2 inh INHALATION DAILY PRN (Reason: SINUS CONGESTION) RF: 0 levalbuterol HCl 0.63 mg/3 mL Solution For Nebulization 0.63 mg INHALATION DIRECTED PRN (Reason: Shortness Of Breath) RF: 0 simvastatin 20 mg tablet 20 mg PO HS RF: 0 ranitidine HCl 150 mg tablet 150 mg PO HS RF: 0 Glucagon Emergency Kit (human) 1 mg Recon Soln 1 mg subcut DIRECTED PRN (Reason: Hypoglycemia) RF: 0 epoetin sabrina 10,000 unit/mL Solution subcut .[id number] RF: 0 insulin lispro [Humalog KwikPen Insulin] 100 unit/mL Insulin Pen 20 unit SUBCUT UD PRN (Reason: diabetes) RF: 0 Lantus Solostar U-100 Insulin 100 unit/mL (3 mL) insulin pen 60 unit subcut QPM RF: 0 sevelamer carbonate 800 mg tablet 2 tab PO TIDM RF: 0 Sandostatin LAR Depot 10 mg Suspension,Extended Rel Recon 10 mg IM .ON HOLD RF: 0 acetaminophen 325 mg Tablet 650 mg PO Q4H PRN (Reason: pain/ fever) RF: 0 amlodipine 5 mg tablet 5 mg PO QAM RF: 0 calcitriol 0.25 mcg capsule 0.25 mcg PO QAM RF: 0 ProAir RespiClick 90 mcg/actuation Aerosol Powdr Breath Activated 2 inh inhalation Q4 PRN (Reason: Shortness Of Breath) RF: 0 ergocalciferol (vitamin D2) 2,000 unit Tablet 2,000 unit PO DAILY RF: 0 fluoxetine 20 mg Capsule 20 mg PO DAILY RF: 0 gabapentin 100 mg Capsule 200 mg PO BID 30 Days Qty: 120 RF: 0 torsemide 20 mg Tablet 20 mg PO BID 30 Days Qty: 0 RF: 0 Referrals Referrals: Deedee Perkins PA-C [Primary Care Provider] - Discharge Problem: Fever Qualifiers: Fever type: unspecified Qualified Code(s): R50.9 - Fever, unspecified The scribe's documentation has been prepared under my direction and personally reviewed by me in its entirety. I confirm that the note above accurately reflects all work, treatment, procedures, and medical decision making performed by me.
[2018-08-20] MEDS ORDERED: MAGNESIUM SULFATE / D5W 1 GM/100 ML BAG IV ONE (20:47)
[2018-08-20] MEDS ORDERED: TRAMADOL HCL 50 MG TABLET PO PRN (23:47)
[2018-08-20] MEDS ORDERED: NITROGLYCERIN SL 0.4 MG/TAB TAB SL PRN (23:47)
[2018-08-20] MEDS ORDERED: FLUTICASONE/SALMETEROL 250/50 (ADVAIR) 14 PUFF/1 INHALER INH PRN (23:47)
[2018-08-20] MEDS ORDERED: LEVALBUTEROL HCL 0.63 MG/3 ML NEB INH PRN (23:47)
[2018-08-20] MEDS ORDERED: ONDANSETRON INJ 2 MG/ML 2 ML VIAL IV PRN (23:47)
[2018-08-20] MEDS ORDERED: ACETAMINOPHEN 325 MG TAB PO PRN (23:47)
[2018-08-20] MEDS ORDERED: ALBUTEROL HFA 8 GM INHALER INH PRN (23:47)
[2018-08-20 23:50] LABS: Basophils # (auto) 0.04 K/uL (0-0.2); Basophils % (auto) 0.3 %; Eosinophils # (auto) 0.06 K/uL (0-0.5); Eosinophils % (auto) 0.4 %; Hematocrit (blood only) 30.3 % (42-52); Hemoglobin 9.6 g/dL (14.0-18.0); Immature Granulocytes # (auto) 0.07 K/uL (0.00-0.02); Immature Granulocytes % (auto) 0.4 %; Lymphocytes # (auto) 0.74 K/uL (1.2-3.4); Lymphocytes % (auto) 4.7 %; Mean Corpuscular Hgb Conc 31.7 g/dL (32-36); Mean Corpuscular Volume 82.8 fL (80-100); Mean Platelet Volume 11.9 fL (7.4-10.4); Monocytes # (auto) 1.51 K/uL (0.11-0.59); Monocytes % (auto) 9.6 %; Neutrophils # (auto) 13.34 K/uL (1.4-6.5); Neutrophils % (auto) 84.6 %; Platelet Count 226 K/uL (130-400); RDW Coefficient of Variation 15.7 % (11.5-14.5); RDW Standard Deviation 46.3 fL (36.4-46.3); Red Blood Count 3.66 M/uL (4.7-6.1); White Blood Count 15.76 K/uL (4.8-10.8)
[2018-08-21] MEDS ORDERED: GLUCOSE 40% GEL 15 GM TUBE PO PRN (00:15)
[2018-08-21] MEDS ORDERED: GLUCAGON FOR INJ 1 MG VIAL IM PRN (00:15)
[2018-08-21] MEDS ORDERED: GLUCOSE 10 TABS/TUBE PO PRN (00:15)
[2018-08-21] MEDS ORDERED: CARBOHYDRATES FOR HYPOGLYCEMIA PO PRN (00:15)
[2018-08-21] MEDS ORDERED: DEXTROSE 50% 50 ML SYRINGE IV PRN (00:15)
[2018-08-21] MEDS ORDERED: CONSULT PHARMACY PRN (00:23)
[2018-08-21] MEDS: SODIUM CHLORIDE 0.9% 1000ML 1,000 ML IV SCH ×3 (00:29→23:39)
[2018-08-21] MEDS ORDERED: CEFEPIME CONSULT ACTIVE PRN (00:37)
--- NOTE | 2018-08-21 00:39 | History and Physical Report ---
DATE OF ADMISSION: 08/20/2018 CHIEF COMPLAINT: Not feeling well, weak and tired, ongoing illness. 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 Follows with [facility] and his Sandostatin is on hold currently, diastolic CHF, asthma, insulin-dependent diabetes type 2, depression, hyperparathyroidism, hypertension, who presents with general weakness and tiredness since the last several days, not able to get up from the bed. He is just going to the bathroom and coming back and sleeping. Poor appetite since last couple of days. Subjective fevers. He has chronic back pain. Denies any burning micturition or hematuria, but before coming to hospital he micturated and he refused to do straight cath in the ER. We are waiting for the urine sample. Denies any constipation or diarrhea or hematuria or black stools or blood in the stools. Denies any chest pain, shortness of breath. Has dry cough going on for about a week with no phlegm. Denies any headache. No sore throat, no difficulty swallowing. Had a temp spike in the ER. Blood pressure is okay. Denies any dizziness. ALLERGIES: SULFA ANTIBIOTICS. PAST MEDICAL HISTORY: As mentioned above. PAST SURGICAL HISTORY: History of cervical spine surgery, history of foot surgery, knee surgery, lumbar spine surgery. FAMILY HISTORY: Significant for breast cancer and diabetes. SOCIAL HISTORY: Lives with his . Former smoker. No alcohol use, no drug use. MEDICATIONS: Currently, the patient is on Tylenol 650 mg p.o. q. 4 hours p.r.n., amlodipine 5 mg p.o. daily, calcitriol 0.25 mcg p.o. daily, Epogen shots q. 2 weeks, vitamin D 2000 units p.o. daily, fluoxetine 20 mg p.o. daily, Advair Diskus 250/50 mcg 2 puffs inhalation daily, gabapentin 200 mg p.o. b.i.d., Humalog 20 units subcutaneous as directed, Lantus SoloSTAR 60 units subcutaneous q.p.m., Lovenox 0.63 mg inhalation p.r.n., ProAir 2 inhalations q. 4 hours p.r.n., Zantac 150 mg p.o. at bedtime, Sandostatin on hold, Sevelamer 2 tablets p.o. t.i.d., simvastatin 20 mg p.o. at bedtime, torsemide 20 mg p.o. b.i.d. REVIEW OF SYSTEMS: As per HPI. Rest of the review of systems negative. PHYSICAL EXAMINATION: GENERAL: The patient is of moderate build, not in acute distress. VITAL SIGNS: T-max 38.3, pulse 99, respiratory rate 22, blood pressure 131/65, oxygen 94% on room air. HEENT: No pallor, no icterus. Pupils equal, round, reactive to light. NECK: No JVD, no neck masses, no carotid bruit. CARDIOVASCULAR: S1, S2 heard, regular rate and rhythm, no murmur, no gallop. RESPIRATORY SYSTEM: Normal AP diameter. No accessory muscle use. No wheezing, no crackles. ABDOMEN: Soft, bowel sounds present. Nontender. No distention. CENTRAL NERVOUS SYSTEM: Cranial nerves II-XII grossly intact and nonfocal. EXTREMITIES: Pedal edema present. No erythema seen. LABORATORY DATA: CBC is pending. PT 11, INR 1.1, APTT 25.1. Sodium 138, potassium 4.7, chloride 103, bicarbonate 28, BUN 41, creatinine 2.6, serum glucose 243. Lactate 1.3, calcium 8.3, magnesium 1.7, total bilirubin 0.4, AST 25, ALT 31, alkaline phosphatase 128, total protein 6.9, procalcitonin 0.2. Influenza A and B negative. IMAGING DATA: Chest x-ray, minimal bibasilar opacity like atelectasis. no convincing evidence of acute cardiopulmonary disease. EKG: Sinus tachycardia at a rate of 108, left axis deviation. ASSESSMENT AND PLAN: This is a 73-year-old male who presents with not feeling well and having fever. 1. Generalized weakness, poor appetite, temp spike in the ER. Could not get urine sample currently. Possible urinary tract infection. Chest x-ray, bibasilar opacities possible atelectasis, but patient has also dry cough. The patient was recently treated for epididymitis with 10 days of antibiotics, Levaquin. Will empirically place him on cefepime, follow the blood and urine cultures. Gentle fluids and monitor on med/surg tele.Later UA came back unremarkable. Added Doxycycline for possible pneumonia based on equivocal xray and cough.. 2. Type 2 diabetes, insulin dependent, hyperglycemia. Patient's sugars are running up and down at home. Will continue his home Lantus at 60 units at bedtime and place on insulin sliding scale. Follow HbA1c levels. Follow the blood sugars closely. Diabetic diet. 3. Chronic kidney disease stage IV. Baseline creatinine around 3, currently creatinine of 2.69. Will follow the labs. 4. Chronic diastolic congestive heart failure. Presently getting gentle fluids. Will continue home diuretics, torsemide 20 b.i.d. He is at home on fluid restriction 1800 mL per day.Starting on gentle fluids will monitor for any volume overload. 5. History of hypertension. Continue amlodipine withholding parameters. Will monitor the blood pressure. 6. Recent epididymitis, treated with 10 days of Levaquin. Will follow the urine cultures again. 7. Depression. Continue Prozac. 8. Chronic neck pain, on gabapentin, tramadol p.r.n. 9. Chronic lower back pain from lumbar spinal stenosis. Pain management as above. 10. History of neuroendocrine tumor with metastatic pancreatic and liver cancer. Follows with Dr. Arthur Huynh at [facility]. Afinitor held secondary to fatigue and he was on Sandostatin, which is also held for now as per patient. Follow up with [facility] around discharge. 11. Deep venous thrombosis prophylaxis. We will place him on sequential compression devices for now. 12. Disposition: Closely monitor in med/surg tele. Code status DNR as per my discussion with the patient. Social service to help with discharge planning. PT and OT prior to discharge. EDUARDO
[2018-08-21] MEDS: INSULIN ASPART 100 UNITS/ML 3 ML PEN SC SCH ×6 (01:32→21:46)
[2018-08-21] MEDS: INSULIN GLARGINE SOLOSTAR 100 UNITS/ML 3 ML PEN SQ SCH ×3 (01:32→21:45)
[2018-08-21 03:16] LABS: Appearance Urine Clear (Clear); Bacteria Urine Automated Negative (Negative); Bilirubin Urine Negative (Negative); Color Urine Yellow; Epithelial Cell Urine Auto 0-5 /lpf (0-5); Glucose Urine UA 1+ (Negative); Ketones Urine Negative (Negative); Leukocyte Esterase Urine Negative (Negative); Nitrite Urine Negative (Negative); Protein Urine 2+ (Negative); Specific Gravity Urine 1.015 (1.000-1.030); Urobilinogen Urine Negative (Negative)
[2018-08-21 06:40] LABS: BUN Creatinine Ratio 15.1 (10-20); Creatinine Clr Calc Pharmacy 31.5 ml/min; Est GFR (African American) 28.2; Est GFR (Non-African American) 24.3; Potassium 4.7 mmol/L (3.5-5.1)
[2018-08-21 08:21] LABS: Basophils # (auto) 0.02 K/uL (0-0.2); Basophils % (auto) 0.2 %; Eosinophils # (auto) 0.25 K/uL (0-0.5); Eosinophils % (auto) 2.3 %; Hematocrit (blood only) 31.2 % (42-52); Hemoglobin 9.8 g/dL (14.0-18.0); Immature Granulocytes # (auto) 0.02 K/uL (0.00-0.02); Immature Granulocytes % (auto) 0.2 %; Lymphocytes # (auto) 1.68 K/uL (1.2-3.4); Lymphocytes % (auto) 15.3 %; Mean Corpuscular Hgb Conc 31.4 g/dL (32-36); Mean Corpuscular Volume 83.6 fL (80-100); Mean Platelet Volume 11.3 fL (7.4-10.4); Monocytes # (auto) 0.91 K/uL (0.11-0.59); Monocytes % (auto) 8.3 %; Neutrophils # (auto) 8.08 K/uL (1.4-6.5); Neutrophils % (auto) 73.7 %; Platelet Count 241 K/uL (130-400); RDW Coefficient of Variation 15.8 % (11.5-14.5); RDW Standard Deviation 47.8 fL (36.4-46.3); Red Blood Count 3.73 M/uL (4.7-6.1); White Blood Count 10.96 K/uL (4.8-10.8)
[2018-08-21] MEDS: AMLODIPINE BESYLATE 5 MG TAB PO SCH (08:25)
[2018-08-21] MEDS: SEVELAMER HCL 800 MG TABLET PO SCH ×3 (08:25→17:09)
[2018-08-21] MEDS: FLUOXETINE HCL 20 MG CAP PO SCH (08:26)
[2018-08-21] MEDS: CALCITRIOL 0.25 MCG CAPSULE PO SCH (08:26)
[2018-08-21] MEDS: TORSEMIDE 10 MG TAB PO SCH ×2 (08:27→17:09)
[2018-08-21] MEDS: CHOLECALCIFEROL 1,000 UNITS TAB PO SCH (08:27)
[2018-08-21] MEDS: GABAPENTIN 100 MG CAP PO SCH ×2 (08:28→21:44)
[2018-08-21] MEDS: DOXYCYCLINE HYCLATE 100 MG in DEXTROSE 5% 100 ML IV SCH ×2 (08:35→19:22)
[2018-08-21 08:51] LABS: Estimated Average Glucose 166 mg/dl
--- NOTE | 2018-08-21 19:37 | Hospitalist Progress Note ---
Date of Service August 21, 2018 Assessment & Plan (1) Weakness: (2) Fever: (3) Dehydration: Present on admission with weakness associated with fever (Temp above 38 C) Possible related to dehydration, but need to r/o any infectious etiology UA negative for UTI WBC increased on admission with normal lactate Chest xray showed minimal basilar opacities likely atelectasis Blood cx pending Starting on cefepime and IV doxycycline Clinically improves PT/OT eval Fall precaution Type 2 diabetes Hba1c 7.4 Continue insulin sliding scale and lantus Monitor BS closely Chronic kidney disease stage IV. Baseline creatinine around 3 creatinine on admission 2.69. Creatinine improved to 2.5 today Continue gentle hydration Monitor BMP Chronic diastolic congestive heart failure. No sign of fluid overload Continue torsemide 20 b.i.d. Will monitor closely for fluid restriction Hypertension. Continue amlodipine and torsemide BP stable . Depression. Continue Prozac. Stable Chronic neck and Back Pain on gabapentin, tramadol p.r.n. 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 Follows with Dr. Arthur Huynh at [place]. Afinitor and Sandostatin have been on hold DVT Px on SCDs CODE STATUS DNR Subjective Pt was seen and examined Lying in bed with no distress Pt said that he feels much better today He said that he was able to walk to the bathroom today He said that yesterday he was not able to walk because he was so weak Denies any chest pain, palpitation, dizziness and SOB Physical Exam Physical Exam: General- No acute distress, obese Head- atraumatic Eyes- PERRL, EOMI, ENT- oropharynx clear Neck- supple, no JVD Lungs- diminished BS Heart- regular rhythm; no murmur Abdomen- normal bowel sounds, soft, nontender Extremities- no calf tenderness, +edema Neuro- alert, oriented x 3; PERRL, EOMI; no facial palsy; no dysarthria Skin- warm & dry Results & Data Vital Signs (Past 12 Hours) Vital Signs Temp Pulse Resp BP Pulse Ox 08/21/18 15:10 36.5 C 88 18 156/68 H 97 08/21/18 11:14 37.0 C 89 16 157/71 H 96 (1) Fever Fever type: unspecified Qualified Code(s): R50.9 - Fever, unspecified
[2018-08-21] MEDS: CEFEPIME 2,000 MG in SYRINGE 7.5 ML IV SCH (21:37)
[2018-08-21] MEDS: SIMVASTATIN 20 MG TAB PO SCH (21:45)
[2018-08-22] MEDS: INSULIN ASPART 100 UNITS/ML 3 ML PEN SC SCH ×4 (08:17→20:23)
[2018-08-22] MEDS: CHOLECALCIFEROL 1,000 UNITS TAB PO SCH (08:18)
[2018-08-22] MEDS: FLUOXETINE HCL 20 MG CAP PO SCH (08:18)
[2018-08-22] MEDS: AMLODIPINE BESYLATE 5 MG TAB PO SCH (08:18)
[2018-08-22] MEDS: TORSEMIDE 10 MG TAB PO SCH ×2 (08:18→18:10)
[2018-08-22] MEDS: GABAPENTIN 100 MG CAP PO SCH ×2 (08:18→20:22)
[2018-08-22] MEDS: CALCITRIOL 0.25 MCG CAPSULE PO SCH (08:19)
[2018-08-22] MEDS: SEVELAMER HCL 800 MG TABLET PO SCH ×3 (08:19→18:10)
[2018-08-22] MEDS: DOXYCYCLINE HYCLATE 100 MG CAP PO SCH ×2 (09:04→20:21)
[2018-08-22] MEDS: SODIUM CHLORIDE 0.9% 1000ML 1,000 ML IV SCH (13:35)
--- NOTE | 2018-08-22 16:32 | Hospitalist Progress Note ---
Date of Service August 22, 2018 Assessment & Plan (1) Weakness: (2) Fever: (3) Dehydration: Sepsis r/o Present on admission with weakness associated with fever (Temp above 38 C) Possible related to dehydration, but need to r/o any infectious etiology UA negative for UTI WBC increased on admission with normal lactate Chest xray showed minimal basilar opacities likely atelectasis Blood cx no growth Continue cefepime IV for now IV doxycycline changed to oral doxy Clinically improves PT/OT eval Fall precaution Type 2 diabetes Hba1c 7.4 BS elevated Continue insulin sliding scale and lantus Monitor BS closely Chronic kidney disease stage IV. Baseline creatinine around 3 creatinine on admission 2.69. Creatinine improved to 2.5 reecived gentle IV hydration Monitor BMP Chronic diastolic congestive heart failure. No sign of fluid overload Continue torsemide 20 b.i.d. D/C IV fluid Will monitor closely for fluid overload Hypertension. Continue amlodipine and torsemide BP stable . Depression. Continue Prozac. Stable Chronic neck and Back Pain on gabapentin, tramadol p.r.n. 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 Follows with Dr. Arthur Huynh at [place]. Afinitor and Sandostatin have been on hold DVT Px on SCDs CODE STATUS DNR Disposition Possible discharge tomorrow Subjective Pt was seen and examined Sitting in bed with no distress Pt was using the bathroom when I entered the room He said that he feels much better He said that he is getting a little stronger Denies any chest pain, palpitation, dizziness, fever and SOB Physical Exam Physical Exam: General- No acute distress, obese Head- atraumatic Eyes- PERRL, EOMI, ENT- oropharynx clear Neck- supple, no JVD Lungs- diminished BS Heart- regular rhythm; no murmur Abdomen- normal bowel sounds, soft, nontender Extremities- no calf tenderness, +edema Neuro- alert, oriented x 3; PERRL, EOMI; no facial palsy; no dysarthria Skin- warm & dry Results & Data Vital Signs (Past 12 Hours) Vital Signs Temp Pulse Pulse Resp BP Pulse Ox 08/22/18 15:31 36.8 C 84 20 132/66 96 08/22/18 11:00 37 C 84 14 160/67 H 97 08/22/18 07:35 88 08/22/18 07:07 36.8 C 84 18 157/55 H 95 08/22/18 07:00 36.9 C 84 14 140/66 96 (1) Fever Fever type: unspecified Qualified Code(s): R50.9 - Fever, unspecified
[2018-08-22] MEDS: CEFEPIME 2,000 MG in SYRINGE 7.5 ML IV SCH (20:22)
[2018-08-22] MEDS: SIMVASTATIN 20 MG TAB PO SCH (20:22)
[2018-08-22] MEDS: INSULIN GLARGINE SOLOSTAR 100 UNITS/ML 3 ML PEN SQ SCH (20:24)
[2018-08-23 07:40] LABS: Hematocrit (blood only) 27.1 % (42-52); Mean Corpuscular Hgb Conc 33.2 g/dL (32-36); Mean Corpuscular Volume 80.7 fL (80-100); Mean Platelet Volume 10.5 fL (7.4-10.4); Platelet Count 213 K/uL (130-400); RDW Coefficient of Variation 15.8 % (11.5-14.5); Red Blood Count 3.36 M/uL (4.7-6.1); White Blood Count 7.15 K/uL (4.8-10.8)
[2018-08-23] MEDS: SEVELAMER HCL 800 MG TABLET PO SCH ×3 (08:03→17:25)
[2018-08-23] MEDS: AMLODIPINE BESYLATE 5 MG TAB PO SCH (08:04)
[2018-08-23] MEDS: DOXYCYCLINE HYCLATE 100 MG CAP PO SCH ×2 (08:04→21:09)
[2018-08-23] MEDS: CHOLECALCIFEROL 1,000 UNITS TAB PO SCH (08:04)
[2018-08-23] MEDS: CALCITRIOL 0.25 MCG CAPSULE PO SCH (08:04)
[2018-08-23] MEDS: FLUOXETINE HCL 20 MG CAP PO SCH (08:04)
[2018-08-23] MEDS: TORSEMIDE 10 MG TAB PO SCH ×2 (08:04→17:25)
[2018-08-23] MEDS: GABAPENTIN 100 MG CAP PO SCH ×2 (08:04→21:08)
[2018-08-23] MEDS: INSULIN ASPART 100 UNITS/ML 3 ML PEN SC SCH ×4 (08:05→21:07)
[2018-08-23 08:13] LABS: BUN Creatinine Ratio 15.2 (10-20); Calcium 8.9 mg/dl (8.5-10.1); Creatinine Clr Calc Pharmacy 29.1 ml/min; Est GFR (African American) 25.9; Est GFR (Non-African American) 22.4; Potassium 4.2 mmol/L (3.5-5.1)
--- NOTE | 2018-08-23 19:10 | Hospitalist Progress Note ---
Date of Service August 23, 2018 Assessment & Plan (1) Weakness: (2) Fever: (3) Dehydration: Sepsis r/o Present on admission with weakness associated with fever (Temp above 38 C) Possible related to dehydration, but need to r/o any infectious etiology UA negative for UTI WBC increased on admission with normal lactate Chest xray showed minimal basilar opacities likely atelectasis Blood cx no growth On cefepime IV for now IV doxycycline changed to oral doxy WBC back to normal has been afebrile for 72hrs Clinically improves PT on board and recommended to return home Continue PT/OT outpatient Fall precaution Fatigue Possible related to lack of sleep and medication (gabapentin and tramadol) Will decrease gabapentin from 200mg to 100mg BID Advised pt to avoid taking day nap sleep Stay active Type 2 diabetes Hba1c 7.4 BS elevated Continue insulin sliding scale and lantus Monitor BS closely Chronic kidney disease stage IV. Baseline creatinine around 3 creatinine on admission 2.69. Creatinine 2.7 today Received gentle IV hydration during hospital course Monitor BMP Chronic diastolic congestive heart failure. No sign of fluid overload Continue torsemide 20 b.i.d. D/C IV fluid Will monitor closely for fluid overload Monitor BMP Hypertension. Continue amlodipine and torsemide BP stable . Depression. Continue Prozac. Stable Chronic neck and Back Pain on gabapentin that decreased to 100mg BID, tramadol p.r.n. 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 Follows with Dr. Arthur Huynh at [place]. Afinitor and Sandostatin have been on hold DVT Px on SCDs CODE STATUS DNR Disposition Possible discharge tomorrow Subjective Pt was seen and examined Lying in bed with no distress Pt said that he could not fall asleep last night until about 3:30AM He said that he feels tired during the day he said that he is would like him to go to rehab I told him that i am not sure if he would be qualify for inpatient rehab because therapist said that ok to return home and he walked about 135ft Denies any chest pain, palpitation, dizziness and SOB Physical Exam Physical Exam: General- No acute distress, obese Head- atraumatic Eyes- PERRL, EOMI, ENT- oropharynx clear Neck- supple, no JVD Lungs- diminished BS Heart- regular rhythm; no murmur Abdomen- normal bowel sounds, soft, nontender Extremities- no calf tenderness, +edema Neuro- alert, oriented x 3; PERRL, EOMI; no facial palsy; no dysarthria Skin- warm & dry Results & Data Vital Signs (Past 12 Hours) Vital Signs Temp Pulse Pulse Resp BP BP Pulse Ox 08/23/18 15:47 36.8 C 87 20 139/70 94 08/23/18 07:37 36.8 C 83 20 122/64 97 08/23/18 07:29 82 (1) Fever Fever type: unspecified Qualified Code(s): R50.9 - Fever, unspecified
[2018-08-23] MEDS ORDERED: INSULIN GLARGINE SOLOSTAR 100 UNITS/ML 3 ML PEN SQ SCH (21:00)
[2018-08-23] MEDS: CEFEPIME 2,000 MG in SYRINGE 7.5 ML IV SCH (21:08)
[2018-08-23] MEDS: SIMVASTATIN 20 MG TAB PO SCH (21:09)
[2018-08-24] MEDS: SEVELAMER HCL 800 MG TABLET PO SCH ×2 (08:03→12:33)
[2018-08-24] MEDS: AMLODIPINE BESYLATE 5 MG TAB PO SCH (08:03)
[2018-08-24] MEDS: GABAPENTIN 100 MG CAP PO SCH (08:03)
[2018-08-24] MEDS: CHOLECALCIFEROL 1,000 UNITS TAB PO SCH (08:03)
[2018-08-24] MEDS: FLUOXETINE HCL 20 MG CAP PO SCH (08:03)
[2018-08-24] MEDS: TORSEMIDE 10 MG TAB PO SCH (08:04)
[2018-08-24] MEDS: CALCITRIOL 0.25 MCG CAPSULE PO SCH (08:04)
[2018-08-24] MEDS: DOXYCYCLINE HYCLATE 100 MG CAP PO SCH (08:04)
[2018-08-24] MEDS: INSULIN ASPART 100 UNITS/ML 3 ML PEN SC SCH ×2 (08:05→12:32)
--- NOTE | 2018-08-24 13:59 | Hospitalist Progress Note ---
Date of Service August 24, 2018 Assessment & Plan (1) Weakness: (2) Fever: (3) Dehydration: Sepsis r/o Present on admission with weakness associated with fever (Temp above 38 C) Possible related to dehydration, but need to r/o any infectious etiology UA negative for UTI WBC increased on admission with normal lactate Chest xray showed minimal basilar opacities likely atelectasis Blood cx no growth Will d/c cefepime IV IV doxycycline changed to oral doxy 100mg BID for 3 more days WBC back to normal has been afebrile for 72hrs PT on board and recommended to return home Continue PT/OT outpatient Fall precaution Clinically stable Fatigue Possible related to lack of sleep and medication (gabapentin and tramadol) Continue gabapentin 100mg BID Advised pt to avoid taking day nap sleep Feels much better today Type 2 diabetes Hba1c 7.4 BS elevated Continue insulin sliding scale and lantus Monitor BS closely Chronic kidney disease stage IV. Baseline creatinine around 3 creatinine on admission 2.69. Creatinine 2.7 Received gentle IV hydration during hospital course Monitor BMP Chronic diastolic congestive heart failure. No sign of fluid overload Continue torsemide 20 b.i.d. D/C IV fluid Will monitor closely for fluid overload Monitor BMP Hypertension. Continue amlodipine and torsemide BP stable . Depression. Continue Prozac. Stable Chronic neck and Back Pain on gabapentin that decreased to 100mg BID, tramadol p.r.n. 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 Follows with Dr. Arthur Huynh at [place]. Afinitor and Sandostatin have been on hold DVT Px on SCDs CODE STATUS DNR Disposition Possible discharge home with HH today Subjective Pt was seen and examined Sitting in the chair with no distress He that he had pain last night Pt said that he slept good last night after receiving the pain med He said that he feels much better this morning with more energy Update provided to the [place] Denies any pain, palpitation, dizziness, fever and SOB Physical Exam Physical Exam: General- No acute distress, obese Head- atraumatic Eyes- PERRL, EOMI, ENT- oropharynx clear Neck- supple, no JVD Lungs- diminished BS Heart- regular rhythm; no murmur Abdomen- normal bowel sounds, soft, nontender Extremities- no calf tenderness, +edema Neuro- alert, oriented x 3; PERRL, EOMI; no facial palsy; no dysarthria Skin- warm & dry Results & Data Vital Signs (Past 12 Hours) Vital Signs Temp Pulse Resp BP Pulse Ox 08/24/18 07:42 36.9 C 66 18 114/58 L 97 (1) Fever Fever type: unspecified Qualified Code(s): R50.9 - Fever, unspecified
--- NOTE | 2018-08-26 08:36 | Discharge Summary ---
Date of Service August 24, 2018 Admission HPI Per Admitting Provider CHIEF COMPLAINT: Not feeling well, weak and tired, ongoing illness. 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 Follows with [place] [facility] and his Sandostatin is on hold currently, diastolic CHF, asthma, insulin-dependent diabetes type 2, depression, hyperparathyroidism, hypertension, who presents with general weakness and tiredness since the last several days, not able to get up from the bed. He is just going to the bathroom and coming back and sleeping. Poor appetite since last couple of days. Subjective fevers. He has chronic back pain. Denies any burning micturition or hematuria, but before coming to hospital he micturated and he refused to do straight cath in the ER. We are waiting for the urine sample. Denies any constipation or diarrhea or hematuria or black stools or blood in the stools. Denies any chest pain, shortness of breath. Has dry cough going on for about a week with no phlegm. Denies any headache. No sore throat, no difficulty swallowing. Had a temp spike in the ER. Blood pressure is okay. Denies any dizziness. Admission Exam Per Admitting Provider GENERAL: The patient is of moderate build, not in acute distress. VITAL SIGNS: T-max 38.3, pulse 99, respiratory rate 22, blood pressure 131/65, oxygen 94% on room air. HEENT: No pallor, no icterus. Pupils equal, round, reactive to light. NECK: No JVD, no neck masses, no carotid bruit. CARDIOVASCULAR: S1, S2 heard, regular rate and rhythm, no murmur, no gallop. RESPIRATORY SYSTEM: Normal AP diameter. No accessory muscle use. No wheezing, no crackles. ABDOMEN: Soft, bowel sounds present. Nontender. No distention. CENTRAL NERVOUS SYSTEM: Cranial nerves II-XII grossly intact and nonfocal. EXTREMITIES: Pedal edema present. No erythema seen Principal Diagnosis Weakness Fever Dehydration Fatigue Chronic diastolic congestive heart failure Back pain Neck Pain Depression HTN Discharge Exam General- No acute distress, obese Head- atraumatic Eyes- PERRL, EOMI, ENT- oropharynx clear Neck- supple, no JVD Lungs- diminished BS Heart- regular rhythm; no murmur Abdomen- normal bowel sounds, soft, nontender Extremities- no calf tenderness, +edema Neuro- alert, oriented x 3; PERRL, EOMI; no facial palsy; no dysarthria Skin- warm & dry Discharge Data Allergies Allergy/AdvReac Type Severity Reaction Status Date / Time Sulfa (Sulfonamide Allergy Mild RASH Verified 08/20/18 19:33 Antibiotics) NSAIDS (Non-Steroidal Allergy Unknown "NO Unverified 08/20/18 19:33 Anti-Inflamma NSAIDS"due to kidney disease Consultations 08/20/18 21:27 ED Decision to Admit Stat 08/20/18 23:47 Consult Case Management - Discharge Planning Routine Ordered Studies XR chest 1V portable CLINICAL HISTORY: 73 years-old Male presenting with Sepsis. TECHNIQUE: Portable upright AP view of the chest was obtained. COMPARISON: 07/22/2018. FINDINGS: Atherosclerosis of the aortic arch. Cardiac silhouette top normal in size. Minimal basilar opacities. No pleural effusion or pneumothorax. Degenerative changes of the thoracic spine. Posterior cervical fusion hardware noted. IMPRESSION: 1. Minimal basilar opacities likely atelectasis or scarring. No convincing evidence of acute cardiopulmonary disease. Electronically signed by: Cody Connor M.D. 08/20/2018 8:22 PM Dictated: 08/20/182020 Transcribed: 08/20/182020 Hospital Course (1) Weakness: (2) Fever: (3) Dehydration: Sepsis r/o Present on admission with weakness associated with fever (Temp above 38 C) Possible related to dehydration, but need to r/o any infectious etiology UA negative for UTI WBC increased on admission with normal lactate Chest xray showed minimal basilar opacities likely atelectasis Blood cx no growth Will d/c cefepime IV IV doxycycline changed to oral doxy 100mg BID for 3 more days WBC back to normal has been afebrile for 72hrs PT on board and recommended to return home Continue PT/OT outpatient Fall precaution Clinically stable Fatigue Possible related to lack of sleep and medication (gabapentin and tramadol) Continue gabapentin 100mg BID Advised pt to avoid taking day nap sleep Feels much better today Type 2 diabetes Hba1c 7.4 BS elevated Continue insulin sliding scale and lantus Monitor BS closely Chronic kidney disease stage IV. Baseline creatinine around 3 creatinine on admission 2.69. Creatinine 2.7 Received gentle IV hydration during hospital course Monitor BMP Chronic diastolic congestive heart failure. No sign of fluid overload Continue torsemide 20 b.i.d. D/C IV fluid Will monitor closely for fluid overload Monitor BMP Hypertension. Continue amlodipine and torsemide BP stable . Depression. Continue Prozac. Stable Chronic neck and Back Pain on gabapentin that decreased to 100mg BID, tramadol p.r.n. 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 Follows with Dr. Arthur Huynh at [place]. Afinitor and Sandostatin have been on hold DVT Px on SCDs CODE STATUS DNR Disposition Possible discharge home with HH today Total Time Total Time Spent Total Time Spent (In Minutes): 35 minutes Total Time Includes: Examination of the Patient, Discharge Planning, Medication Reconciliation, Communication With Other Providers and Other Discharge Plan Discharge Items Patient Disposition: Home - Self-Care Reason For Visit: ILLNESS Discharge Diagnosis: Weakness Fever Dehydration Fatigue Chronic diastolic congestive heart failure Back pain Neck Pain Depression HTN Discharge Goals: Decrease discomfort, Improve disease control and Increase independence Activity: Resume your previous activity Activity Comment: as tolerated Non-emergency contact: Primary Care Provider Call non-emergency contact if: your pain is worsening and your temperature is above 101 Follow-up/Referrals: Deedee Perkins PA-C [Primary Care Provider] - Diet: Carb Consistent or DM2 and Heart Healthy Addtl Provider Instructions: Follow up with your primary care provider with 1 week Continue physical and occupational therapy Fall precaution Hold pain medication if pt become drowsy, lethargy and sleepy Monitor your blood sugar Complete course of antibiotic Prescriptions: New doxycycline hyclate 100 mg Capsule 100 mg PO BID 3 Days Qty: 6 RF: 0 Continued fluticasone propion-salmeterol 250-50 mcg/dose Blister With Device 2 inh INHALATION DAILY PRN (Reason: SINUS CONGESTION) RF: 0 levalbuterol HCl 0.63 mg/3 mL Solution For Nebulization 0.63 mg INHALATION DIRECTED PRN (Reason: Shortness Of Breath) RF: 0 simvastatin 20 mg tablet 20 mg PO HS RF: 0 ranitidine HCl 150 mg tablet 150 mg PO HS RF: 0 Glucagon Emergency Kit (human) 1 mg Recon Soln 1 mg subcut DIRECTED PRN (Reason: Hypoglycemia) RF: 0 epoetin sabrina 10,000 unit/mL Solution subcut .[id number] RF: 0 insulin lispro [Humalog KwikPen Insulin] 100 unit/mL Insulin Pen 20 unit SUBCUT UD PRN (Reason: diabetes) RF: 0 Lantus Solostar U-100 Insulin 100 unit/mL (3 mL) insulin pen 60 unit subcut QPM RF: 0 sevelamer carbonate 800 mg tablet 2 tab PO TIDM RF: 0 Sandostatin LAR [place] 10 mg Suspension,Extended Rel Recon 10 mg IM .ON HOLD RF: 0 acetaminophen 325 mg Tablet 650 mg PO Q4H PRN (Reason: pain/ fever) RF: 0 amlodipine 5 mg tablet 5 mg PO QAM RF: 0 calcitriol 0.25 mcg capsule 0.25 mcg PO QAM RF: 0 ProAir RespiClick 90 mcg/actuation Aerosol Powdr Breath Activated 2 inh inhalation Q4 PRN (Reason: Shortness Of Breath) RF: 0 ergocalciferol (vitamin D2) 2,000 unit Tablet 2,000 unit PO DAILY RF: 0 fluoxetine 20 mg Capsule 20 mg PO DAILY RF: 0 Discontinued gabapentin 100 mg Capsule 200 mg PO BID 30 Days Qty: 120 RF: 0 Stand-Alone Forms: [facility] Discharge Orders: Discharge Order (Routine); Ordered 08/24/18 Ordered By: Kwame Baron Admission Data Admit Date/Time: 08/20/18 22:21 Attending Provider: Kwame Baron Admit Provider: Herber Min Primary Care Provider: Deedee Perkins Other Providers: Dillon Aburto Rajendra P Service: Medical Other Interventions: Discharge Summary Assessment (RN) Last Done: 08/24/18 14:27 DC Date/Time DO NOT enter until pt leaves facility: 08/24/18 15:56
== END 2018-08-24 15:56 | disposition home or self-care (01) | DRG 641 ==
LOC: ED 18:34 → 2W 22:21 → SUATTDRO 22:21 → 2W 23:06

== ENCOUNTER 2018-11-13 15:05 | Inpatient (IN) ==
[2018-11-13] MEDS ORDERED: SODIUM CHLORIDE 0.9% 1000ML 500 ML IV ONE (15:35)
[2018-11-13] MEDS ORDERED: MoRPHine SULFATE 4 MG/ML 1 ML CARP\\VIAL IV STA (15:35)
--- NOTE | 2018-11-13 15:50 | Emergency Department Note ---
History of Present Illness General Chief complaint: Illness Stated complaint: NOT EATING OR DRINKING, SLEEPING A LOT Source: patient Mode of arrival: ambulatory Limitations: no limitations History of Present Illness Maximum Pain Intensity: 6 This patient is a 73-year-old male who presents the emergency department co mplaining of generalized pain. The patient states that he wants to . He states that the only time he does not have pain is when he is sleeping. His states that he has been sleeping more than usual and slept for 24 hours 3 or 4 days ago. Patient has a history of liver and pancreatic cancer and had an appointment last week at [facility] to see oncology. He had a PET scan and was told that his tumors have doubled in size. His feels that his current symptoms are related to this. Patient currently rates his discomfort a 7/10. He has not been eating or drinking much. Patient additionally does have a history of type 2 diabetes, chronic kidney disease, asthma and heart failure. P atient denies abdominal pain, nausea/vomiting, urinary symptoms or fevers. He does admit he has an ulcer on his right great toe and has an appointment with the gerontology aide tomorrow for this. Home Medications Home Medications Medication Instructions Recorded Confirmed Type Glucagon Emergency Kit (human) 1 mg SUBCUT DIRECTED PRN 07/22/18 11/13/18 History Lantus Solostar U-100 Insulin 60 unit SUBCUT QPM 07/22/18 11/13/18 History ProAir RespiClick 2 inh INHALATION Q4 PRN 07/22/18 11/13/18 History Sandostatin LAR Depot 0 mg IM DIRECTED 07/22/18 11/13/18 History acetaminophen 650 mg PO Q4H PRN 07/22/18 11/13/18 History calcitriol 0.25 mcg PO QAM 07/22/18 11/13/18 History epoetin sabrina 0 unit SUBCUT .[id number] 07/22/18 11/13/18 History ergocalciferol (vitamin D2) 2,000 unit PO DAILY 07/22/18 11/13/18 History fluoxetine 20 mg PO DAILY 07/22/18 11/13/18 History insulin lispro [Humalog KwikPen 0 unit SUBCUT DIRECTED 07/22/18 11/13/18 History Insulin] levalbuterol HCl 0.63 mg INHALATION DIRECTED PRN 07/22/18 11/13/18 History ranitidine HCl 150 mg PO HS 07/22/18 11/13/18 History sevelamer carbonate 2 tab PO TIDM 07/22/18 11/13/18 History simvastatin 20 mg PO HS 07/22/18 11/13/18 History alfuzosin 10 mg PO DAILY 11/13/18 11/13/18 History amlodipine 2.5 mg PO DAILY 11/13/18 11/13/18 History fluticasone propion-salmeterol 1 inh INHALATION Q12H 11/13/18 11/13/18 History [Advair Diskus] gabapentin 100 mg PO BID 11/13/18 11/13/18 History ipratropium-albuterol 3 ml INHALATION BID PRN 11/13/18 11/13/18 History torsemide 40 mg PO DAILY 11/13/18 11/13/18 History tramadol 50 mg PO Q12H 11/13/18 11/13/18 History albuterol sulfate 2 puff INHALATION Q6H PRN 11/14/18 11/14/18 History Allergies Allergy/AdvReac Type Severity Reaction Status Date / Time Sulfa (Sulfonamide Allergy Mild RASH Verified 11/13/18 17:10 Antibiotics) NSAIDS (Non-Steroidal Allergy Unknown "NO Verified 11/13/18 17:10 Anti-Inflamma NSAIDS"due to kidney disease Past Med/Surg History Medical History IDDM (insulin dependent diabetes mellitus) (Chronic) Hyperparathyroidism (Chronic) HLD (hyperlipidemia) (Chronic) 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 Diastolic heart failure (Chronic) Liver cancer (Chronic) Pancreas cancer (Chronic) Hypertension (Chronic) Diabetes (Chronic) Depression (Chronic) CKD (chronic kidney disease), stage IV (Chronic) Chronic neck pain (Chronic) Asthma (Chronic) Anemia (Chronic) Metastatic disease (Chronic) Surgical History S/P foot surgery (Chronic) bone spur removed S/P knee surgery (Chronic) S/P lumbar spine operation (Chronic) H/O cervical spine surgery (Chronic) Family History Other Breast cancer Diabetes No pertinent family history Social History Preferred Language: Yakut Communication Ability: Effective Visual Impairment: No Limitations Hearing Ability: Normal Life Skills Teacher Required: No Beliefs That Will Affect Care: None marital status: Current Living Situation: Spouse Other Information That Helps Us Care for You: No Feels Safe at Home: Yes Safety Concerns: Feels Safe At This Time Smoking Status: Former smoker Tobacco Type: cigarettes, pipe and cigars ; Hx Alcohol Use: No Hx Substance Use: No Review of Systems A total of 10 systems reviewed and were otherwise negative Physical Exam Vital Signs Vital Signs - 24 hr 11/13/18 15:16 Temperature 37.0 C Temperature Source Oral Sepsis Recent Fever Within 48 Hours No Sepsis Action Taken by Nursing No Action Required Pulse Rate 92 H Respiratory Rate 20 Respiratory Effort / Characteristics Non-Labored Respiratory Depth Normal Blood Pressure 130/60 Blood Pressure Mean 83 Pulse Oximetry 98 Oxygen Delivery Method Room Air VITALS: Vitals are noted on the nurse's note and reviewed by myself. Vital signs stable. GENERAL: This is a 73-year-old male in no acute distress. SKIN: The skin was without rashes, erythema, edema, or bruising. HEAD: Normocephalic atraumatic. EARS: External auditory canals clear, tympanic membranes pearly lainez without erythema or effusion bilaterally. EYES: Pupils equal round and reactive to light and accommodation. Conjunctivae without injection, sclerae without icterus. Extraocular movements intact. MOUTH: Mucous membranes moist. Tonsils are not enlarged. NECK: Supple without nuchal rigidity. No lymphadenopathy. HEART: Regular rate and rhythm without murmurs gallops or rubs. LUNGS: Clear to auscultation bilaterally without wheezes, rales or rhonchi. No retractions or accessory muscle use. ABDOMEN: Positive bowel sounds x 4. Soft, nontender. No palpable masses or organomegaly. EXTREMITIES: No peripheral edema. The right great toe is diffusely erythematous and there is a necrotic appearing ulcer to the plantar aspect of the toe. NEURO: Patient was alert and oriented to person place and time. PSYCH: Flat affect, patient drowsy throughout the evaluation. Course Consultations Consultation #1: Elizabeth Fabian hospitalist Administered Medications Alfuzosin HCl (Uroxatral) 10 mg PO DAILY [facility] Stop: 12/14/18 08:59 Last Admin: 11/14/18 08:22 Dose: 10 mg Documented by: [id number] Amlodipine Besylate (Norvasc) 2.5 mg PO DAILY [facility] Stop: 12/14/18 08:59 Last Admin: 11/14/18 08:22 Dose: 2.5 mg Documented by: [id number] Calcitriol (Rocaltrol) 0.25 mcg PO QAM [facility] Stop: 12/14/18 08:59 Last Admin: 11/14/18 08:22 Dose: 0.25 mcg Documented by: [id number] Fluoxetine HCl (Prozac) 20 mg PO DAILY [facility] Stop: 12/14/18 08:59 Last Admin: 11/14/18 08:21 Dose: 20 mg Documented by: [id number] Gabapentin (Neurontin) 100 mg PO BID [facility] Stop: 12/13/18 21:31 Last Admin: 11/14/18 20:26 Dose: 100 mg Documented by: [id number] Admin: 11/14/18 08:21 Dose: 100 mg Documented by: [id number] Admin: 11/13/18 23:13 Dose: 100 mg Documented by: [id number] Heparin Sodium (Porcine) (Heparin Sodium (Porcine)) 5,000 units SQ Q8 [facility] Stop: 12/13/18 21:59 Last Admin: 11/14/18 20:25 Dose: 5,000 units Documented by: [id number] Cosigned by: [id number] Admin: 11/14/18 13:43 Dose: 5,000 units Documented by: [id number] Cosigned by: [id number] Admin: 11/14/18 05:12 Dose: 5,000 units Documented by: [id number] Cosigned by: [id number] Admin: 11/13/18 23:08 Dose: 5,000 units Documented by: [id number] Cosigned by: [id number] Piperacillin Sod/Tazobactam (Sod 3.375 gm/ Dextrose) 115 mls @ 28.75 mls/hr IV Q8H [facility]; Protocol Stop: 12/26/18 00:00 Last Infusion: 11/14/18 21:01 Dose: 0 mls/hr Documented by: [id number] Admin: 11/14/18 16:51 Dose: 28 mls/hr Documented by: [id number] Infusion: 11/14/18 13:07 Dose: 0 mls/hr Documented by: [id number] Admin: 11/14/18 08:52 Dose: 28.8 mls/hr Documented by: [id number] Infusion: 11/14/18 05:41 Dose: 0 mls/hr Documented by: [id number] Infusion: 11/14/18 00:39 Dose: 28.8 mls/hr Documented by: [id number] Infusion: 11/13/18 23:55 Dose: 0 mls/hr Documented by: [id number] Admin: 11/13/18 23:13 Dose: 28.8 mls/hr Documented by: [id number] Daptomycin 450 mg/ Syringe 9 mls @ 4.5 mls/min IV Q24H [facility]; Protocol Stop: 12/26/18 19:59 Last Admin: 11/14/18 20:28 Dose: 4.5 mls/min Documented by: [id number] Insulin Aspart (Novolog Flexpen) 0 units SC ACHS [facility] Stop: 12/13/18 21:31 Last Admin: 11/14/18 20:24 Dose: 7 units Documented by: [id number] Cosigned by: [id number] Admin: 11/14/18 17:12 Dose: 10 units Documented by: [id number] Cosigned by: [id number] Admin: 11/14/18 12:18 Dose: 6 units Documented by: [id number] Cosigned by: [id number] Admin: 11/14/18 08:17 Dose: 6 units Documented by: [id number] Cosigned by: [id number] Admin: 11/13/18 23:06 Dose: 2 units Documented by: [id number] Cosigned by: [id number] Insulin Glargine (Lantus Solostar Pen) 0 - 20 units SC BID [facility] Stop: 12/13/18 21:31 Last Admin: 11/14/18 20:23 Dose: 20 units Documented by: [id number] Cosigned by: [id number] Admin: 11/14/18 08:20 Dose: 20 units Documented by: [id number] Cosigned by: [id number] Admin: 11/13/18 23:07 Dose: 20 units Documented by: [id number] Cosigned by: [id number] Oxycodone/Acetaminophen (Percocet 5mg/325mg) 1 tab PO Q8H PRN PRN Reason: Pain Stop: 11/28/18 08:38 Last Admin: 11/14/18 08:52 Dose: 1 tab Documented by: [id number] Ranitidine HCl (Zantac) 150 mg PO HS [facility] Stop: 12/13/18 21:31 Last Admin: 11/14/18 20:27 Dose: 150 mg Documented by: [id number] Admin: 11/13/18 23:13 Dose: 150 mg Documented by: [id number] Fluticasone/Salmeterol (Advair Diskus 250/50) 1 puffs INH BID [facility] Stop: 12/13/18 21:31 Last Admin: 11/14/18 20:22 Dose: 1 puffs Documented by: [id number] Admin: 11/14/18 08:20 Dose: 1 puffs Documented by: [id number] Admin: 11/13/18 23:12 Dose: 1 puffs Documented by: [id number] Sevelamer HCl (Renagel) 1,600 mg PO TIDM [facility] Stop: 12/14/18 07:59 Last Admin: 11/14/18 16:51 Dose: 1,600 mg Documented by: [id number] Admin: 11/14/18 12:18 Dose: 1,600 mg Documented by: [id number] Admin: 11/14/18 08:21 Dose: 1,600 mg Documented by: [id number] Torsemide (Demadex) 40 mg PO QAM [facility] Stop: 12/14/18 08:59 Last Admin: 11/14/18 08:22 Dose: 40 mg Documented by: [id number] Tramadol HCl (Ultram) 50 mg PO Q12H PRN PRN Reason: pain Stop: 12/13/18 21:31 Last Admin: 11/14/18 00:42 Dose: 50 mg Documented by: [id number] Vitamin D (Vitamin D3) 2,000 units PO QAM [facility] Stop: 12/14/18 08:59 Last Admin: 11/14/18 08:23 Dose: 2,000 units Documented by: [id number] Discontinued Medications Sodium Chloride (Nss 1000ml) 500 mls @ 999 mls/hr IV .Q31M ONE Stop: 11/13/18 16:05 Last Infusion: 11/13/18 17:09 Dose: 0 mls/hr Documented by: [id number] Admin: 11/13/18 16:38 Dose: 999 mls/hr Documented by: [id number] Piperacillin Sod/Tazobactam Sod (Zosyn) 3.375 gm in 115 mls @ 230 mls/hr IV NOW STA Stop: 11/13/18 18:51 Last Infusion: 08/14/19 19:40 Dose: 0 mls/hr Documented by: [id number] Admin: 11/13/18 19:10 Dose: 230 mls/hr Documented by: [id number] Daptomycin 300 mg/ Syringe 6 mls @ 3 mls/min IV NOW ONE; Protocol Stop: 11/13/18 18:23 Last Admin: 11/13/18 19:10 Dose: 3 mls/min Documented by: [id number] Morphine Sulfate (Morphine Sulfate) 4 mg IV NOW STA Stop: 11/13/18 15:36 Last Admin: 11/13/18 16:30 Dose: 4 mg Documented by: [id number] Medical Decision Making Differential Diagnosis Differential diagnosis includes infection, sepsis, acute kidney injury, dehydration, electrolyte abnormality, among others. Medical Records Attestation: I reviewed the patient's medical records. Home Medications Current Medication List: was personally reviewed by me Laboratory Data Attestation: I reviewed the patient's lab results. Result diagrams: 11/14/18 05:58 11/14/18 05:58 Lab Results 11/13/18 11/13/18 11/13/18 Range/Units 16:29 16:29 16:29 WBC 7.90 (4.8-10.8) K/uL RBC 3.54 L (4.7-6.1) M/uL Hgb 10.0 L (14.0-18.0) g/dL Hct 30.0 L (42-52) % MCV 84.7 (80-100) fL MCH 28.2 (25-34) pg MCHC 33.3 (32-36) g/dL RDW Std Deviation 39.6 (36.4-46.3) fL RDW Coeff of José Miguel 12.8 (11.5-14.5) % Plt Count 231 (130-400) K/uL MPV 11.8 H (7.4-10.4) fL Immature Gran % (Auto) 0.4 % Neut % (Auto) 69.3 % Lymph % (Auto) 13.8 % Rock % (Auto) 14.4 % Eos % (Auto) 1.8 % Baso % (Auto) 0.3 % Immature Gran # (Auto) 0.03 H (0.00-0.02) K/uL Neut # (Auto) 5.48 (1.4-6.5) K/uL Lymph # (Auto) 1.09 L (1.2-3.4) K/uL Rock # (Auto) 1.14 H (0.11-0.59) K/uL Eos # (Auto) 0.14 (0-0.5) K/uL Baso # (Auto) 0.02 (0-0.2) K/uL ESR (0-14) mm/hr PT (9.0-12.0) Seconds INR (0.9-1.1) APTT (21.0-31.0) Seconds PTT Ratio Sodium 135 L (136-145) mmol/L Potassium 4.5 (3.5-5.1) mmol/L Chloride 98 (98-107) mmol/L Carbon Dioxide 28 (21-32) mmol/L Anion Gap 9.0 (3-11) BUN 51 H (7-18) mg/dl Creatinine 2.73 H (0.6-1.4) mg/dl Est Cr Clr Drug Dosing 29.2 ml/min Est GFR ( Amer) 25.9 Est GFR (Non-Af Amer) 22.4 BUN/Creatinine Ratio 18.6 (10-20) Glucose 286 H (70-99) mg/dl Lactate 1.4 (0.4-2.0) mmol/L Calcium 8.5 (8.5-10.1) mg/dl Magnesium 2.0 (1.8-2.4) mg/dl Total Bilirubin 0.3 (0.2-1) mg/dl AST 13 L (15-37) U/L ALT 23 (12-78) U/L Alkaline Phosphatase 124 H (45-117) U/L Total Creatine Kinase (39-308) U/L Troponin I < 0.015 (0-0.045) ng/ml C-Reactive Protein (0-0.29) mg/dl Total Protein 7.1 (6.4-8.2) gm/dl Albumin 2.7 L (3.4-5.0) gm/dl Globulin 4.4 H (2.5-4.0) gm/dl Albumin/Globulin Ratio 0.6 L (0.9-2) Urine Color Urine Appearance (Clear) Urine pH (4.5-7.5) Ur Specific Colona (1.000-1.030) Urine Protein (Negative) Urine Glucose (UA) (Negative) Urine Ketones (Negative) Urine Blood (Negative) Urine Nitrite (Negative) Urine Bilirubin (Negative) Urine Urobilinogen (Negative) Ur Leukocyte Esterase (Negative) Urine WBC (Auto) (0-5) /hpf Urine RBC (Auto) (0-4) /hpf U Hyaline Cast (Auto) (0-5) /lpf U Epithel Cells (Auto) (0-5) /lpf Urine Bacteria (Auto) (Negative) 11/13/18 11/13/18 11/13/18 Range/Units 16:29 16:29 16:29 WBC (4.8-10.8) K/uL RBC (4.7-6.1) M/uL Hgb (14.0-18.0) g/dL Hct (42-52) % MCV (80-100) fL MCH (25-34) pg MCHC (32-36) g/dL RDW Std Deviation (36.4-46.3) fL RDW Coeff of José Miguel (11.5-14.5) % Plt Count (130-400) K/uL MPV (7.4-10.4) fL Immature Gran % (Auto) % Neut % (Auto) % Lymph % (Auto) % Rock % (Auto) % Eos % (Auto) % Baso % (Auto) % Immature Gran # (Auto) (0.00-0.02) K/uL Neut # (Auto) (1.4-6.5) K/uL Lymph # (Auto) (1.2-3.4) K/uL Rock # (Auto) (0.11-0.59) K/uL Eos # (Auto) (0-0.5) K/uL Baso # (Auto) (0-0.2) K/uL ESR 79 H (0-14) mm/hr PT 11.0 (9.0-12.0) Seconds INR 1.1 (0.9-1.1) APTT 27.1 (21.0-31.0) Seconds PTT Ratio 1.0 Sodium (136-145) mmol/L Potassium (3.5-5.1) mmol/L Chloride (98-107) mmol/L Carbon Dioxide (21-32) mmol/L Anion Gap (3-11) BUN (7-18) mg/dl Creatinine (0.6-1.4) mg/dl Est Cr Clr Drug Dosing ml/min Est GFR ( Amer) Est GFR (Non-Af Amer) BUN/Creatinine Ratio (10-20) Glucose (70-99) mg/dl Lactate (0.4-2.0) mmol/L Calcium (8.5-10.1) mg/dl Magnesium (1.8-2.4) mg/dl Total Bilirubin (0.2-1) mg/dl AST (15-37) U/L ALT (12-78) U/L Alkaline Phosphatase (45-117) U/L Total Creatine Kinase (39-308) U/L Troponin I (0-0.045) ng/ml C-Reactive Protein 15.30 H (0-0.29) mg/dl Total Protein (6.4-8.2) gm/dl Albumin (3.4-5.0) gm/dl Globulin (2.5-4.0) gm/dl Albumin/Globulin Ratio (0.9-2) Urine Color Urine Appearance (Clear) Urine pH (4.5-7.5) Ur Specific Colona (1.000-1.030) Urine Protein (Negative) Urine Glucose (UA) (Negative) Urine Ketones (Negative) Urine Blood (Negative) Urine Nitrite (Negative) Urine Bilirubin (Negative) Urine Urobilinogen (Negative) Ur Leukocyte Esterase (Negative) Urine WBC (Auto) (0-5) /hpf Urine RBC (Auto) (0-4) /hpf U Hyaline Cast (Auto) (0-5) /lpf U Epithel Cells (Auto) (0-5) /lpf Urine Bacteria (Auto) (Negative) 11/13/18 11/13/18 Range/Units 16:29 18:33 WBC (4.8-10.8) K/uL RBC (4.7-6.1) M/uL Hgb (14.0-18.0) g/dL Hct (42-52) % MCV (80-100) fL MCH (25-34) pg MCHC (32-36) g/dL RDW Std Deviation (36.4-46.3) fL RDW Coeff of José Miguel (11.5-14.5) % Plt Count (130-400) K/uL MPV (7.4-10.4) fL Immature Gran % (Auto) % Neut % (Auto) % Lymph % (Auto) % Rock % (Auto) % Eos % (Auto) % Baso % (Auto) % Immature Gran # (Auto) (0.00-0.02) K/uL Neut # (Auto) (1.4-6.5) K/uL Lymph # (Auto) (1.2-3.4) K/uL Rock # (Auto) (0.11-0.59) K/uL Eos # (Auto) (0-0.5) K/uL Baso # (Auto) (0-0.2) K/uL ESR (0-14) mm/hr PT (9.0-12.0) Seconds INR (0.9-1.1) APTT (21.0-31.0) Seconds PTT Ratio Sodium (136-145) mmol/L Potassium (3.5-5.1) mmol/L Chloride (98-107) mmol/L Carbon Dioxide (21-32) mmol/L Anion Gap (3-11) BUN (7-18) mg/dl Creatinine (0.6-1.4) mg/dl Est Cr Clr Drug Dosing ml/min Est GFR ( Amer) Est GFR (Non-Af Amer) BUN/Creatinine Ratio (10-20) Glucose (70-99) mg/dl Lactate (0.4-2.0) mmol/L Calcium (8.5-10.1) mg/dl Magnesium (1.8-2.4) mg/dl Total Bilirubin (0.2-1) mg/dl AST (15-37) U/L ALT (12-78) U/L Alkaline Phosphatase (45-117) U/L Total Creatine Kinase 39 (39-308) U/L Troponin I (0-0.045) ng/ml C-Reactive Protein (0-0.29) mg/dl Total Protein (6.4-8.2) gm/dl Albumin (3.4-5.0) gm/dl Globulin (2.5-4.0) gm/dl Albumin/Globulin Ratio (0.9-2) Urine Color Yellow Urine Appearance Clear (Clear) Urine pH 5.0 (4.5-7.5) Ur Specific Colona 1.015 (1.000-1.030) Urine Protein 1+ H (Negative) Urine Glucose (UA) 1+ H (Negative) Urine Ketones Negative (Negative) Urine Blood Trace H (Negative) Urine Nitrite Negative (Negative) Urine Bilirubin Negative (Negative) Urine Urobilinogen Negative (Negative) Ur Leukocyte Esterase Negative (Negative) Urine WBC (Auto) 1-5 (0-5) /hpf Urine RBC (Auto) 0-4 (0-4) /hpf U Hyaline Cast (Auto) 0 (0-5) /lpf U Epithel Cells (Auto) 0-5 (0-5) /lpf Urine Bacteria (Auto) Negative (Negative) Imaging Data Attestation: I personally reviewed and interpreted this imaging study as follows: Radiologist's Impression: Right great toe 3 views CLINICAL HISTORY: diabetic ulcer right great toe COMPARISON: None. DISCUSSION: No acute fractures are visualized. There is air within the soft tissues adjacent to the top of the distal phalanx. There are equivocal early erosive changes. MRI would be considered the test of choice for the evaluation of possible osteomyelitis. There are vascular calcifications. IMPRESSION: 1. No evidence of acute fracture 2. Equivocal early erosive changes involving the tip of the distal phalanx 3. Soft tissue gas surrounding the distal phalanx 4. MRI would be considered the test of choice for the evaluation of possible osteomyelitis XR chest 1V portable FINDINGS: Cardiomediastinal silhouette normal. Asymmetric lucency of the right lung may be technical in etiology. No focal opacity. Blunting of the left costophrenic angle likely relates to chronic lingular opacity as on prior. No pleural effusion or pneumothorax. Degenerative changes of the thoracic spine. Upper abdomen normal. IMPRESSION: 1. Chronic lingular atelectasis or scarring. No new focal infiltrate to suggest pneumonia. 2. Lucency in the right lung is felt to most likely be artifactual. No pneumothorax. Blood Pressure Blood Pressure Findings: Normal blood pressure MDM Narrative The patient is a 73-year-old male who presents today complaining of generalized pain and fatigue. Labs revealed no leukocytosis. Patient is anemic, which is baseline for him. Elevated creatinine is also baseline for patient. Lactic acid was not elevated. No evidence of UTI. Toe x-ray with erosive changed suggestive of osteomyelitis. Patient was started on Daptomycin and Zosyn and admitted to the [facility] service for further evaluation and care. The patient was also independently evaluated by Dr. Tyler, who agreed with my assessment and treatment plan. Impression & Plan Acute osteomyelitis of toe Discharge Plan Visit Data *Final* Discharge Date/Time: 11/13/18 20:02 Chief Complaint: Illness Stated Complaint: NOT EATING OR DRINKING, SLEEPING A LOT ED Provider: Josué Tyler ED Midlevel Provider: Amanda Sanchez Discharge Problem: Acute osteomyelitis of toe Patient Disposition: Admitted As Inpatient Discharge Instructions Interventions: ED Discharge Assessment Last Done: 11/13/18 20:02 Discharge Problem: Acute osteomyelitis of toe Qualifiers: Laterality: right Qualified Code(s): M86.171 - Other acute osteomyelitis, right ankle and foot
--- NOTE | 2018-11-13 15:52 | XRay Report ---
XR chest 1V portable CLINICAL HISTORY: 73 years-old Male presenting with weakness. TECHNIQUE: Portable upright AP view of the chest was obtained. COMPARISON: 08/20/2018. FINDINGS: Cardiomediastinal silhouette normal. Asymmetric lucency of the right lung may be technical in etiolog y. No focal opacity. Blunting of the left costophrenic angle likely relates to chronic lingular opaci ty as on prior. No pleural effusion or pneumothorax. Degenerative changes of the thoracic spine. Uppe r abdomen normal. IMPRESSION: 1. Chronic lingular atelectasis or scarring. No new focal infiltrate to suggest pneumonia. 2. Lucency in the right lung is felt to most likely be artifactual. No pneumothorax. Electronically signed by: Cody Connor M.D. 11/13/2018 3:51 PM
--- NOTE | 2018-11-13 16:00 | XRay Report ---
Right great toe 3 views CLINICAL HISTORY: diabetic ulcer right great toe COMPARISON: None. DISCUSSION: No acute fractures are visualized. There is air within the soft tissues adjacent to the t op of the distal phalanx. There are equivocal early erosive changes. MRI would be considered the test of choice for the evaluation of possible osteomyelitis. There are vascular calcifications. IMPRESSION: 1. No evidence of acute fracture 2. Equivocal early erosive changes involving the tip of the distal phalanx 3. Soft tissue gas surrounding the distal phalanx 4. MRI would be considered the test of choice for the evaluation of possible osteomyelitis Electronically signed by: Sumanth Blount M.D. 11/13/2018 3:59 PM
[2018-11-13 16:41] LABS: Basophils # (auto) 0.02 K/uL (0-0.2); Basophils % (auto) 0.3 %; Eosinophils # (auto) 0.14 K/uL (0-0.5); Eosinophils % (auto) 1.8 %; Immature Granulocytes # (auto) 0.03 K/uL (0.00-0.02); Immature Granulocytes % (auto) 0.4 %; Lymphocytes # (auto) 1.09 K/uL (1.2-3.4); Lymphocytes % (auto) 13.8 %; Mean Corpuscular Hgb Conc 33.3 g/dL (32-36); Mean Corpuscular Volume 84.7 fL (80-100); Mean Platelet Volume 11.8 fL (7.4-10.4); Monocytes # (auto) 1.14 K/uL (0.11-0.59); Monocytes % (auto) 14.4 %; Neutrophils # (auto) 5.48 K/uL (1.4-6.5); Neutrophils % (auto) 69.3 %; Platelet Count 231 K/uL (130-400); RDW Coefficient of Variation 12.8 % (11.5-14.5); RDW Standard Deviation 39.6 fL (36.4-46.3); Red Blood Count 3.54 M/uL (4.7-6.1)
[2018-11-13 16:53] LABS: INR 1.1 (0.9-1.1); Partial Thromboplastin Time 27.1 Seconds (21.0-31.0)
[2018-11-13 17:05] LABS: Alanine Aminotransferase 23 U/L (12-78); Albumin Level 2.7 gm/dl (3.4-5.0); Aspartate Aminotransferase 13 U/L (15-37); BUN Creatinine Ratio 18.6 (10-20); Blood Urea Nitrogen 51 mg/dl (7-18); Calcium 8.5 mg/dl (8.5-10.1); Carbon Dioxide 28 mmol/L (21-32); Chloride 98 mmol/L (98-107); Creatinine Clr Calc Pharmacy 29.2 ml/min; Est GFR (African American) 25.9; Est GFR (Non-African American) 22.4; Glucose 286 mg/dl (70-99); Potassium 4.5 mmol/L (3.5-5.1); Sodium 135 mmol/L (136-145)
[2018-11-13 17:10] LABS: Albumin Globulin Ratio 0.6 (0.9-2); Alkaline Phosphatase 124 U/L (45-117); Bilirubin,Total 0.3 mg/dl (0.2-1); Globulin 4.4 gm/dl (2.5-4.0); Total Protein 7.1 gm/dl (6.4-8.2); Troponin I < 0.015 ng/ml (0-0.045)
[2018-11-13] MEDS ORDERED: PIPERACILLIN/TAZOBACTAM 3.375 GM/115 ML BAG IV STA (18:22)
[2018-11-13] MEDS ORDERED: PIPERACILL/TAZOBAC CONSULT ACTIVE PRN ×2 (18:22→22:12)
[2018-11-13] MEDS ORDERED: DAPTOmycin 300 MG in SYRINGE 0 ML IV ONE (18:22)
[2018-11-13 18:52] LABS: Appearance Urine Clear (Clear); Bacteria Urine Automated Negative (Negative); Bilirubin Urine Negative (Negative); Blood Urine Trace (Negative); Cast Urine Automated 0 /lpf (0-5); Color Urine Yellow; Epithelial Cell Urine Auto 0-5 /lpf (0-5); Glucose Urine UA 1+ (Negative); Ketones Urine Negative (Negative); Leukocyte Esterase Urine Negative (Negative); Nitrite Urine Negative (Negative); Protein Urine 1+ (Negative); RBC Urine Automated 0-4 /hpf (0-4); Specific Gravity Urine 1.015 (1.000-1.030); Urobilinogen Urine Negative (Negative)
--- NOTE | 2018-11-13 19:43 | History & Physical Report ---
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 brought pt to ED due to increase sleeping, malaise, ill feeling x 3 days. Work up noted R great toe dry gangrenous ulcer Xray concerning for Equivocal early erosive changes involving the tip of the distal phalanx, and Soft tissue gas surrounding the distal phalanx WBC 7.9, LA WNL, H/H stable 10.0/30.0, ESR 79, [id number], Bun/Cr 51/2.73 Received broad spectrum IV Dapto and Zosyn given concern for osteomyelitis admit to med/surg tele obtain R great toe MRI continue IV Dapto/Zosyn await blood cultures monitor cbc, bmp consult infectious disease wound care consulted wound culture based on MRI consider consulting ortho Partial WB to RLE (3) Generalized pain: ? if secondary to above illness supportive care for now monitor (4) IDDM (insulin dependent diabetes mellitus): Last A1C 7.6 Lantus/humalog as outpt continue lantus/novolog protocol reduced dosage given reduced po intake monitor (5) Diastolic heart failure: Wt down to 98.4kg, appears euvolemic continue torsemide for volume management monitor renal function and po intake, adjust accordingly (6) Hypertension: blood pressure controlled continue amlodipine, torsemide (7) HLD (hyperlipidemia): hold statin in setting of Daptomycin use CK WNL (8) Hyperparathyroidism: continue calcitriol (9) Neuroendocrine carcinoma of pancreas: w/ mets to liver s/p chemoembolization in past recent PET scan revealed increased size to tumor Has follow up 12/[address] Huynh [facility] (10) Depression: very flat affected continue prozac may benefit from psych consult in no improvement (11) CKD (chronic kidney disease), stage IV: baseline cr 2.8 bun/cr 51 and 2.73 follow bmp continue calcitriol, sevelamer follows Dr. Dawn (12) Anemia: anemia of chronic disease receives q2 week procrit; however recently H/H has remained above goal therefore has not received since 6/ H/H stable at 10.0/30.0 monitor cbc (13) DVT prophylaxis: Heparin SQ Disposition: to be determined, case management consulted Follow up: PCP Deedee Perkins PA-C upon discharge Patient was seen and examined in collaboration with Dr. Aburto, please see addendum History of Present Illness Chief Complaint: Multiple complaints x3 days. 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 Patient states he overall does not fe el well, has pain all over, has been sleeping more frequently, chills, nausea. He has ulcer to right great toe that he states his noticed on Sunday. Per patient felt ulcer was getting worse. Denies drainage from area or pain. Pt unable due feel feet given neuropathy. When asked why he came to the hospital he states, "my . "He denies any documented fever or sweats, weakness, dizziness, chest pain, palpitations, shortness breath at rest, LOCK, emesis, abdominal pain, change in bowel or urinary habits. Per outpatient provider notes he has lost 8 pounds since Sunday. He also re cently received results of PET scan for neuroendocrine tumor. He follows Dr. Huynh [facility] who states tumor has nearly doubled and recommends to restart chemoembolization. He has appointment 12/09/2018 for follow-up. He feels he is mostly compliant with his medications. Allergies Allergy/AdvReac Type Severity Reaction Status Date / Time Sulfa (Sulfonamide Allergy Mild RASH Verified 11/13/18 17:10 Antibiotics) NSAIDS (Non-Steroidal Allergy Unknown "NO Verified 11/13/18 17:10 Anti-Inflamma NSAIDS"due to kidney disease Home Medications Home Medications Medication Instructions Recorded Confirmed Type Glucagon Emergency Kit (human) 1 mg SUBCUT DIRECTED PRN 07/22/18 11/13/18 History Lantus Solostar U-100 Insulin 60 unit SUBCUT QPM 07/22/18 11/13/18 History ProAir RespiClick 2 inh INHALATION Q4 PRN 07/22/18 11/13/18 History Sandostatin LAR Depot 0 mg IM DIRECTED 07/22/18 11/13/18 History acetaminophen 650 mg PO Q4H PRN 07/22/18 11/13/18 History calcitriol 0.25 mcg PO QAM 07/22/18 11/13/18 History epoetin sabrina 0 unit SUBCUT .[id number] 07/22/18 11/13/18 History ergocalciferol (vitamin D2) 2,000 unit PO DAILY 07/22/18 11/13/18 History fluoxetine 20 mg PO DAILY 07/22/18 11/13/18 History insulin lispro [Humalog KwikPen 0 unit SUBCUT DIRECTED 07/22/18 11/13/18 History Insulin] levalbuterol HCl 0.63 mg INHALATION DIRECTED PRN 07/22/18 11/13/18 History ranitidine HCl 150 mg PO HS 07/22/18 11/13/18 History sevelamer carbonate 2 tab PO TIDM 07/22/18 11/13/18 History simvastatin 20 mg PO HS 07/22/18 11/13/18 History alfuzosin 10 mg PO DAILY 11/13/18 11/13/18 History amlodipine 2.5 mg PO DAILY 11/13/18 11/13/18 History fluticasone propion-salmeterol 1 inh INHALATION Q12H 11/13/18 11/13/18 History [Advair Diskus] gabapentin 100 mg PO BID 11/13/18 11/13/18 History ipratropium-albuterol 3 ml INHALATION BID PRN 11/13/18 11/13/18 History torsemide 40 mg PO DAILY 11/13/18 11/13/18 History tramadol 50 mg PO Q12H 11/13/18 11/13/18 History albuterol sulfate 2 puff INHALATION Q6H PRN 11/14/18 11/14/18 History citalopram 20 mg PO DAILY 11/14/18 11/14/18 History Past Med/Surg History Medical History IDDM (insulin dependent diabetes mellitus) (Chronic) Hyperparathyroidism (Chronic) HLD (hyperlipidemia) (Chronic) 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 Diastolic heart failure (Chronic) Liver cancer (Chronic) Pancreas cancer (Chronic) Hypertension (Chronic) Diabetes (Chronic) Depression (Chronic) CKD (chronic kidney disease), stage IV (Chronic) Chronic neck pain (Chronic) Asthma (Chronic) Anemia (Chronic) Metastatic disease (Chronic) Surgical History S/P foot surgery (Chronic) bone spur removed S/P knee surgery (Chronic) S/P lumbar spine operation (Chronic) H/O cervical spine surgery (Chronic) Family History Other Breast cancer Diabetes No pertinent family history Social History Preferred Language: Zambian Communication Ability: Effective Visual Impairment: No Limitations Hearing Ability: Normal Colorist Required: No Beliefs That Will Affect Care: None marital status: Current Living Situation: Spouse Other Information That Helps Us Care for You: No Feels Safe at Home: Yes Safety Concerns: Feels Safe At This Time Smoking Status: Former smoker Tobacco Type: cigarettes, pipe and cigars ; Hx Alcohol Use: No Hx Substance Use: No Review of Systems Review of Systems: As noted per HPI, 10 systems reviewed and negative unless noted above. Physical Exam Physical Exam: Gen: WD/WN, M, NAD, lying in bed, very flat affected, answers questions appropriately Head: Normocephalic, Atraumatic Eyes: Sclera normal, no conjunctival injection, PERRLA, EOMI ENT: Gross hearing intact, normal pharynx, mucous membranes moist Neck: supple, no adenopathy, No JVD, no bruit, Resp: Clear to auscultation b/l, no wheeze, rales, rhonchi. 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 immigration case worker strength Extremities: No edema bilaterally, venous stasis changes, R great toe distal area ulceration with necrosis, dry gangrene, surrounding great toe erythema Skin: warm, moist, no rash, negative turgor, cap refill < 2sec Neuro: Alert and oriented x 3, speech normal, very flat mood/affect, cran nerve 2-12 intact grossly : deferred Results & Data Vital Signs (Past 12 Hours) Vital Signs Temp Pulse Pulse Resp BP BP Pulse Ox 11/13/18 18:37 87 24 107/62 97 11/13/18 16:43 87 95 11/13/18 15:16 37.0 C 92 H 20 130/60 98 Laboratory Results Short CBC 11/13/18 11/13/18 Range/Units 16:29 16:29 WBC 7.90 (4.8-10.8) K/uL Hgb 10.0 L (14.0-18.0) g/dL Hct 30.0 L (42-52) % Plt Count 231 (130-400) K/uL BUN 51 H (7-18) mg/dl Creatinine 2.73 H (0.6-1.4) mg/dl BMP 11/13/18 16:29 Sodium 135 L Potassium 4.5 Chloride 98 Carbon Dioxide 28 BUN 51 H Creatinine 2.73 H Glucose 286 H Calcium 8.5 Cardiac Enzymes 11/13/18 11/13/18 Range/Units 16:29 16:29 Total Creatine Kinase 39 (39-308) U/L Troponin I < 0.015 (0-0.045) ng/ml Liver Function 11/13/18 Range/Units 16:29 Total Bilirubin 0.3 (0.2-1) mg/dl AST 13 L (15-37) U/L ALT 23 (12-78) U/L Alkaline Phosphatase 124 H (45-117) U/L Albumin 2.7 L (3.4-5.0) gm/dl Urine 11/13/18 Range/Units 18:33 Urine Color Yellow Urine Appearance Clear (Clear) Urine pH 5.0 (4.5-7.5) Ur Specific [place] 1.015 (1.000-1.030) Urine Protein 1+ H (Negative) Urine Glucose (UA) 1+ H (Negative) Diagnostic Findings CXR: IMPRESSION: 1. Chronic lingular atelectasis or scarring. No new focal infiltrate to suggest pneumonia. 2. Lucency in the right lung is felt to most likely be artifactual. No pneumothorax. Toe Xray: IMPRESSION: 1. No evidence of acute fracture 2. Equivocal early erosive changes involving the tip of the distal phalanx 3. Soft tissue gas surrounding the distal phalanx 4. MRI would be considered the test of choice for the evaluation of possible osteomyelitis Medications Administered Discontinued Medications Sodium Chloride (Nss 1000ml) 500 mls @ 999 mls/hr IV .Q31M ONE Stop: 11/13/18 16:05 Last Infusion: 11/13/18 17:09 Dose: 0 mls/hr Documented by: [id number] Admin: 11/13/18 16:38 Dose: 999 mls/hr Documented by: [id number] Piperacillin Sod/Tazobactam Sod (Zosyn) 3.375 gm in 115 mls @ 230 mls/hr IV NOW STA Stop: 11/13/18 18:51 Last Admin: 11/13/18 19:10 Dose: 230 mls/hr Documented by: [id number] Daptomycin 300 mg/ Syringe 6 mls @ 3 mls/min IV NOW ONE; Protocol Stop: 11/13/18 18:23 Last Admin: 11/13/18 19:10 Dose: 3 mls/min Documented by: [id number] Morphine Sulfate (Morphine Sulfate) 4 mg IV NOW STA Stop: 11/13/18 15:36 Last Admin: 11/13/18 16:30 Dose: 4 mg Documented by: [id number] ECG Rhythm: normal sinus Findings: + prolonged QT (qtc 491) Code Status & VTE Plan Code Status Full Code VTE Prophylaxis Plan VTE Prophylaxis will be ordered: Yes Supervising Physician Co-Signing Physician Notes Attending Addendum: The patient was seen and examined in ER This is a 73-year-old male who has a significant past medical history of 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 Presented with nonspecific symptoms of drowsiness and extreme tiredness and noted to have dry gangrene involving the right great Denies any other significant symptoms On examination No apparent distress at rest Hemodynamically stable Chest-decreased breath sounds at the bases Heart-S1-S2 Abdomen-benign Extremities-chronic skin changes involving both the legs and affect, right great toe is swollen with dry gangrene and adjoining erythema requirements manager-alert and Admission labs and imaging studies reviewed Likely has osteomyelitis of the right great toe ID consult Agree with assessment and plan as outlined above by ISHAAN lA Dr
--- NOTE | 2018-11-13 20:02 | Emergency Department Note ---
ED Visit Note The patient was seen and examined with Amanda Sanchez PA-C. I agree with the history, physical and findings. Patient is an insulin-dependent diabetic. His examination is concerning for gangrenous ulcer of the foot. And biotics were initiated. X-ray imaging was concerning for osteomyelitis. Internal medicine was consulted for further management. Please see the note for disposition and details. .
[2018-11-13] MEDS ORDERED: GLUCOSE 40% GEL 15 GM TUBE PO PRN (21:32)
[2018-11-13] MEDS ORDERED: GLUCOSE 10 TABS/TUBE PO PRN (21:32)
[2018-11-13] MEDS ORDERED: CARBOHYDRATES FOR HYPOGLYCEMIA PO PRN (21:32)
[2018-11-13] MEDS ORDERED: DEXTROSE 50% 50 ML SYRINGE IV PRN (21:32)
[2018-11-13] MEDS ORDERED: ACETAMINOPHEN 325 MG TAB PO PRN (21:32)
[2018-11-13] MEDS ORDERED: CONSULT PHARMACY STA (21:32)
[2018-11-13] MEDS ORDERED: ONDANSETRON INJ 2 MG/ML 2 ML VIAL IV PRN (21:32)
[2018-11-13] MEDS ORDERED: POLYETHYLENE (MIRALAX) 17 GM PACK PO PRN (21:32)
[2018-11-13] MEDS ORDERED: GLUCAGON FOR INJ 1 MG VIAL SQ PRN (21:32)
[2018-11-13] MEDS ORDERED: DAPTOMYCIN CONSULT ACTIVE PRN (22:12)
[2018-11-13] MEDS: INSULIN ASPART 100 UNITS/ML 3 ML PEN SC SCH (23:06)
[2018-11-13] MEDS: INSULIN GLARGINE SOLOSTAR 100 UNITS/ML 3 ML PEN SC SCH (23:07)
[2018-11-13] MEDS: HEPARIN SOD 5,000 UNIT/0.5 ML VIAL SQ SCH (23:08)
[2018-11-13] MEDS: FLUTICASONE/SALMETEROL 250/50 (ADVAIR) 14 PUFF/1 INHALER INH SCH (23:12)
[2018-11-13] MEDS: GABAPENTIN 100 MG CAP PO SCH (23:13)
[2018-11-13] MEDS: PIPERACILLIN/TAZOBACTAM 3.375 GM in DEXTROSE 5% 100 ML IV SCH (23:13)
[2018-11-14] MEDS: TRAMADOL HCL 50 MG TABLET PO PRN (00:42)
--- NOTE | 2018-11-14 01:10 | Magnetic Resonance Report ---
MRI OF THE RIGHT FOREFOOT WITHOUT IV CONTRAST CLINICAL HISTORY: Osteomyelitis of the 1st toe. COMPARISON STUDY: Radiographs of the right 1st toe dated 11/13/2018. TECHNIQUE: MRI of the right forefoot is performed utilizing various T1 and T2-weighted sequences in t he axial, sagittal, and coronal planes. IV contrast was not administered for this examination. The ex amination is degraded by motion artifact. FINDINGS: There is minimal marrow edema identified within the tuft of the 1st distal phalanx. There i s coarse benign drop in signal on the T1-weighted sequences. Minimal erosive change is suggested. Whe n correlated with today's radiographic findings, this likely represents osteomyelitis. There is overl yadira soft tissue edema and a small cutaneous ulceration. No additional similar-appearing marrow quinn es are seen throughout the remainder of the forefoot. There is mild diffuse soft tissue edema of the forefoot which likely represents cellulitis. There is mild myositis of the regional musculature. The partially imaged flexor and extensor tendons are grossly intact. Moderate arthritic change is noted i n the forefoot. There is no MRI evidence of organized fluid collection. IMPRESSION: 1. Findings are suspicious for osteomyelitis involving the distal tuft of the 1st distal phalanx. Thi s corresponds to today's radiographic findings. 2. An ulceration is noted in the 1st toe with evidence of surrounding cellulitis. 3. There is no evidence of organized fluid collection. Dictated: 11/13/2018 8:49 PM Transcribed: 11/14/2018 1:06 AM Marguerite [id number] [email or web address] Electronically signed by: Mateo Troncoso M.D. 11/14/2018 1:08 AM
[2018-11-14] MEDS: HEPARIN SOD 5,000 UNIT/0.5 ML VIAL SQ SCH ×3 (05:12→20:25)
[2018-11-14 06:25] LABS: Basophils # (auto) 0.05 K/uL (0-0.2); Basophils % (auto) 0.7 %; Eosinophils # (auto) 0.26 K/uL (0-0.5); Eosinophils % (auto) 3.9 %; Hematocrit (blood only) 27.6 % (42-52); Immature Granulocytes # (auto) 0.01 K/uL (0.00-0.02); Immature Granulocytes % (auto) 0.1 %; Lymphocytes # (auto) 1.33 K/uL (1.2-3.4); Lymphocytes % (auto) 19.8 %; Mean Corpuscular Hgb Conc 32.6 g/dL (32-36); Mean Corpuscular Volume 84.9 fL (80-100); Monocytes # (auto) 1.19 K/uL (0.11-0.59); Monocytes % (auto) 17.7 %; Neutrophils # (auto) 3.87 K/uL (1.4-6.5); Neutrophils % (auto) 57.8 %; Platelet Count 197 K/uL (130-400); RDW Coefficient of Variation 12.9 % (11.5-14.5); RDW Standard Deviation 39.8 fL (36.4-46.3); Red Blood Count 3.25 M/uL (4.7-6.1); White Blood Count 6.71 K/uL (4.8-10.8)
[2018-11-14 07:05] LABS: BUN Creatinine Ratio 19.1 (10-20); Calcium 8.2 mg/dl (8.5-10.1); Creatinine Clr Calc Pharmacy 30.1 ml/min; Est GFR (African American) 27.5; Est GFR (Non-African American) 23.7; Potassium 4.2 mmol/L (3.5-5.1)
[2018-11-14 07:06] LABS: Estimated Average Glucose 214 mg/dl; Hemoglobin A1C 9.1 % (4.5-5.6)
[2018-11-14] MEDS: INSULIN ASPART 100 UNITS/ML 3 ML PEN SC SCH ×4 (08:17→20:24)
[2018-11-14] MEDS: FLUTICASONE/SALMETEROL 250/50 (ADVAIR) 14 PUFF/1 INHALER INH SCH ×2 (08:20→20:22)
[2018-11-14] MEDS: INSULIN GLARGINE SOLOSTAR 100 UNITS/ML 3 ML PEN SC SCH ×2 (08:20→20:23)
[2018-11-14] MEDS: FLUOXETINE HCL 20 MG CAP PO SCH (08:21)
[2018-11-14] MEDS: GABAPENTIN 100 MG CAP PO SCH ×2 (08:21→20:26)
[2018-11-14] MEDS: SEVELAMER HCL 800 MG TABLET PO SCH ×3 (08:21→16:51)
[2018-11-14] MEDS: CALCITRIOL 0.25 MCG CAPSULE PO SCH (08:22)
[2018-11-14] MEDS: ALFUZOSIN HCL 10 MG TAB PO SCH (08:22)
[2018-11-14] MEDS: TORSEMIDE 10 MG TAB PO SCH (08:22)
[2018-11-14] MEDS: AMLODIPINE BESYLATE 5 MG TAB PO SCH (08:22)
[2018-11-14] MEDS: CHOLECALCIFEROL 1,000 UNITS TAB PO SCH (08:23)
[2018-11-14] MEDS: PIPERACILLIN/TAZOBACTAM 3.375 GM in DEXTROSE 5% 100 ML IV SCH ×2 (08:52→16:51)
[2018-11-14] MEDS: OXYCODONE/ACETAMINOPHEN 5mg/325mg TAB PO PRN (08:52)
--- NOTE | 2018-11-14 13:54 | Infectious Disease Consult ---
Date of Consultation November 14, 2018 Assessment & Plan (1) Dry gangrene: continue emperic abx, follow blood cultures. suggest orhto consult, will likely require surgery. obtain wound culture. will follow. (2) Osteomyelitis of right foot: History of Present Illness Attending Physician: Shawn Moore MD pt admitted from home with generalized weakness, f/c and new ulceration right first toe first noted 4 days ago. In ER he was started on broad spectrum abx, zosyn and dapto, remains on these, tolerating well. ESR elevated at 79, creat 2.6 (baseline 2-3), wbc normal 6.7. UA negative. blood cultures obtained, pending, no wound culture done. MRI foot suspicious for osteo at 1st toe. admitted for gangrene. no pain in foot currently, able to bear weight. states he is feeling somewhat better today, denies f/c. no cp, sob, cough, galindo. h/o pancreatic tumor with mets, follows at [facility]. No abd pain currently, no n/v/d. no gu symptoms. All remaining ros reviewed and are negative. Allergies Allergy/AdvReac Type Severity Reaction Status Date / Time Sulfa (Sulfonamide Allergy Mild RASH Verified 11/13/18 17:10 Antibiotics) NSAIDS (Non-Steroidal Allergy Unknown "NO Verified 11/13/18 17:10 Anti-Inflamma NSAIDS"due to kidney disease Home Medications Home Medications Medication Instructions Recorded Confirmed Type Glucagon Emergency Kit (human) 1 mg SUBCUT DIRECTED PRN 07/22/18 11/13/18 History Lantus Solostar U-100 Insulin 60 unit SUBCUT QPM 07/22/18 11/13/18 History ProAir RespiClick 2 inh INHALATION Q4 PRN 07/22/18 11/13/18 History Sandostatin LAR Depot 0 mg IM DIRECTED 07/22/18 11/13/18 History acetaminophen 650 mg PO Q4H PRN 07/22/18 11/13/18 History calcitriol 0.25 mcg PO QAM 07/22/18 11/13/18 History epoetin sabrina 0 unit SUBCUT .[id number] 07/22/18 11/13/18 History ergocalciferol (vitamin D2) 2,000 unit PO DAILY 07/22/18 11/13/18 History fluoxetine 20 mg PO DAILY 07/22/18 11/13/18 History insulin lispro [Humalog KwikPen 0 unit SUBCUT DIRECTED 07/22/18 11/13/18 History Insulin] levalbuterol HCl 0.63 mg INHALATION DIRECTED PRN 07/22/18 11/13/18 History ranitidine HCl 150 mg PO HS 07/22/18 11/13/18 History sevelamer carbonate 2 tab PO TIDM 07/22/18 11/13/18 History simvastatin 20 mg PO HS 07/22/18 11/13/18 History alfuzosin 10 mg PO DAILY 11/13/18 11/13/18 History amlodipine 2.5 mg PO DAILY 11/13/18 11/13/18 History fluticasone propion-salmeterol 1 inh INHALATION Q12H 11/13/18 11/13/18 History [Advair Diskus] gabapentin 100 mg PO BID 11/13/18 11/13/18 History ipratropium-albuterol 3 ml INHALATION BID PRN 11/13/18 11/13/18 History torsemide 40 mg PO DAILY 11/13/18 11/13/18 History tramadol 50 mg PO Q12H 11/13/18 11/13/18 History Patient History Medical History IDDM (insulin dependent diabetes mellitus) (Chronic) Hyperparathyroidism (Chronic) HLD (hyperlipidemia) (Chronic) 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 Diastolic heart failure (Chronic) Liver cancer (Chronic) Pancreas cancer (Chronic) Hypertension (Chronic) Diabetes (Chronic) Depression (Chronic) CKD (chronic kidney disease), stage IV (Chronic) Chronic neck pain (Chronic) Asthma (Chronic) Anemia (Chronic) Metastatic disease (Chronic) Surgical History S/P foot surgery (Chronic) bone spur removed S/P knee surgery (Chronic) S/P lumbar spine operation (Chronic) H/O cervical spine surgery (Chronic) Family History Other Breast cancer Diabetes No pertinent family history Social History Preferred Language: [place] Communication Ability: Effective Visual Impairment: No Limitations Hearing Ability: Normal Hot Bread Baker Required: No Beliefs That Will Affect Care: None marital status: Current Living Situation: Spouse Other Information That Helps Us Care for You: No Feels Safe at Home: Yes Safety Concerns: Feels Safe At This Time Smoking Status: Former smoker Tobacco Type: cigarettes, pipe and cigars ; Hx Alcohol Use: No Hx Substance Use: No Review of Systems Review of Systems: All systems reviewed & are unremarkable except as noted in HPI & below Physical Exam Constitutional: WD/WN, vitals as above Eyes: PERRL, conjunctivae normal, anicteric sclerae ENMT: external ear and nose normal, oropharynx normal Neck: normal visual inspection Respiratory: normal respiratory effort, lungs clear to auscultation Cardiovascular: RRR, no murmur, no edema Gastrointestinal (Abdomen): normal bowel sounds, soft, nontender, no hepatosplenomegaly Musculoskeletal: no cyanosis or clubbing, extremities motor strength 5/5 Skin: no rashes, warm and dry right foot with discoloration, foul odor right first toe, dressing intact, non tender, + surrounding erythema. Psychiatric: A+Ox3, euthymic affect Results & Data Vital Signs (Past 12 Hours) Vital Signs Temp Pulse Pulse Resp BP Pulse Ox 11/14/18 11:16 37.2 C 63 19 107/53 L 97 11/14/18 08:30 85 11/14/18 07:31 37.2 C 73 20 120/63 95 11/14/18 03:55 37.1 C 87 18 112/62 94 11/14/18 02:16 90 PG Care Time/CCT Total # of Minutes Spent Total Time Spent with Patient: Total time spent is greater than 50% in coordination of care (as documented) at patient's floor/unit and/or counseling patient:
--- NOTE | 2018-11-14 15:39 | Hospitalist Progress Note ---
Date of Service November 14, 2018 Assessment & Plan (1) Ulcer of right great toe due to diabetes mellitus: (2) Dry gangrene: Patient is a 73 yr male with H/O Neuroendocrine tumor of pancreas with mets S/P chemoembolization, CKD stage IV, diastolic CHF, DM II, hyperparathyroidism and other problems presents with generalized weakness, generalized pain, nausea, chills, right toe ulcer. Right great toe dry gangrenous ulcer Right foot osteomyelitis --Foot MRI:Findings are suspicious for osteomyelitis involving the distal tuft of the 1st distal phalanx. This corresponds to today's radiographic findings. An ulceration is noted in the 1st toe with evidence of surrounding cellulitis. There is no evidence of organized fluid collection. --Blood Cx:pending continue IV Daptomycin, Zosyn Day #2 Appreciate ID Input Continue wound care Orthopedics consulted (3) Generalized pain: Likely secondary to above Continue management as above (4) IDDM (insulin dependent diabetes mellitus): Last A1C 7.6 Lantus/humalog as outpt continue lantus/novolog as per protocol monitor BGs (5) Diastolic heart failure: Appears euvolemic continue torsemide Monitor volume status (6) Hypertension: continue amlodipine, torsemide (7) HLD (hyperlipidemia): Hold statin while on Daptomycin use Monitor CK (8) Hyperparathyroidism: continue calcitriol (9) Neuroendocrine carcinoma of pancreas: Metastatic neuroendocrine carcinoma of the pancreas S/P chemoembolization recent PET scan revealed increased size to tumor Follows with Dr. Huynh Rod (10) Depression: continue prozac (11) CKD (chronic kidney disease), stage IV: Baseline cr 2.8 Cr at baseline Monitor renal function continue calcitriol, sevelamer Follows Nephrology Dr. Dawn (12) Anemia: Anemia of chronic disease Receives q2 week procrit; however recently H/H has remained above goal therefore has not received since 09/11 monitor CBC (13) DVT prophylaxis: Heparin SQ Code Status Full Code Disposition: To be determined Follows with PCP Deedee Perkins PA-C Subjective Patient is seen and examined at bedside Complains of generalized pain, nausea Foot pain is in controlled " I feel Lousy" Denies any chest pain, shortness of breath, dizziness, abdominal pain Offers no other complaints Review of Systems Review of Systems: All systems reviewed & are unremarkable except as noted in HPI & below Physical Exam Physical Exam: Physical Exam: Vitals signs as noted above General Appearance:Chronic ill appearing, no apparent distress Head: normocephalic, Atraumatic Eyes: normal inspection, EOMI Neck: supple, Trachea midline Respiratory/Chest: Normal breath sounds, CTA Cardiovascular: S1, S2, + systolic murmur Abdomen/GI:Soft, Non tender, Bowel sounds present Extremities/Musculoskelatal:normal inspection, right great toe ulceration with necrosis, dry gangrene Neurologic/Psych:AAOX3, grossly no focal neurological deficits Skin: normal color, warm Results & Data Vital Signs (Past 12 Hours) Vital Signs Temp Pulse Pulse Resp BP Pulse Ox 11/14/18 15:13 36.8 C 86 17 104/51 L 93 11/14/18 11:16 37.2 C 63 19 107/53 L 97 11/14/18 08:30 85 11/14/18 07:31 37.2 C 73 20 120/63 95 11/14/18 03:55 37.1 C 87 18 112/62 94 Laboratory Results Short CBC 11/13/18 11/14/18 Range/Units 16:29 05:58 WBC 7.90 6.71 (4.8-10.8) K/uL Hgb 10.0 L 9.0 L (14.0-18.0) g/dL Hct 30.0 L 27.6 L (42-52) % Plt Count 231 197 (130-400) K/uL BMP 11/13/18 11/14/18 16:29 05:58 Sodium 135 L 140 Potassium 4.5 4.2 Chloride 98 103 Carbon Dioxide 28 29 BUN 51 H 50 H Creatinine 2.73 H 2.60 H Glucose 286 H 192 H Calcium 8.5 8.2 L Cardiac Enzymes 11/13/18 11/13/18 Range/Units 16:29 16:29 Total Creatine Kinase 39 (39-308) U/L Troponin I < 0.015 (0-0.045) ng/ml Liver Function 11/13/18 Range/Units 16:29 Total Bilirubin 0.3 (0.2-1) mg/dl AST 13 L (15-37) U/L ALT 23 (12-78) U/L Alkaline Phosphatase 124 H (45-117) U/L Albumin 2.7 L (3.4-5.0) gm/dl Urine 11/13/18 Range/Units 18:33 Urine Color Yellow Urine Appearance Clear (Clear) Urine pH 5.0 (4.5-7.5) Ur Specific [place] 1.015 (1.000-1.030) Urine Protein 1+ H (Negative) Urine Glucose (UA) 1+ H (Negative)
--- NOTE | 2018-11-14 17:48 | Orthopedic Consultation ---
Date of Consultation November 14, 2018 Assessment & Plan (1) Dry gangrene: I will have Dr. Wiseman review the patient's films. I discussed with the patient that he will likely need at the very least a debridement of his toe however with the question of suspicious osteomyelitis at the tuft, that a amputation of the distal tip of the toe is possible. Plan to continue IV antibiotics and possible irrigation debridement/distal great toe amputation possibly tomorrow versus Sunday pending Dr. Wiseman's input. History of Present Illness Reason for Consultation: Gangrene right great toe Attending Physician: Shawn Moore MD History of Present Illness Patient is a 73-year-old white male with the past medical history noted below. Patient states that he has had no problems with his feet and no history of diabetic ulcerations in the past. He has had neuropathy in his foot for some time and states he cannot feel anything in the right great toe. Over the weekend his had noticed he developed an ulceration/blister to the bottom of his right great toe. It progressively worsened. Since that time, the patient developed general malaise and was not feeling well for the previous 3 days prior to admission. Patient was admitted under hospitalist service. Blood cultures were drawn as well as a culture of the tip of the great toe. Great toe culture is pending for Gram stain and blood cultures are no growth to date. We have been asked to see him for his gangrene of his right great toe Allergies Allergy/AdvReac Type Severity Reaction Status Date / Time Sulfa (Sulfonamide Allergy Mild RASH Verified 11/13/18 17:10 Antibiotics) NSAIDS (Non-Steroidal Allergy Unknown "NO Verified 11/13/18 17:10 Anti-Inflamma NSAIDS"due to kidney disease Home Medications Home Medications Medication Instructions Recorded Confirmed Type Glucagon Emergency Kit (human) 1 mg SUBCUT DIRECTED PRN 07/22/18 11/13/18 History Lantus Solostar U-100 Insulin 60 unit SUBCUT QPM 07/22/18 11/13/18 History ProAir RespiClick 2 inh INHALATION Q4 PRN 07/22/18 11/13/18 History Sandostatin LAR Depot 0 mg IM DIRECTED 07/22/18 11/13/18 History acetaminophen 650 mg PO Q4H PRN 07/22/18 11/13/18 History calcitriol 0.25 mcg PO QAM 07/22/18 11/13/18 History epoetin sabrina 0 unit SUBCUT .[id number] 07/22/18 11/13/18 History ergocalciferol (vitamin D2) 2,000 unit PO DAILY 07/22/18 11/13/18 History fluoxetine 20 mg PO DAILY 07/22/18 11/13/18 History insulin lispro [Humalog KwikPen 0 unit SUBCUT DIRECTED 07/22/18 11/13/18 History Insulin] levalbuterol HCl 0.63 mg INHALATION DIRECTED PRN 07/22/18 11/13/18 History ranitidine HCl 150 mg PO HS 07/22/18 11/13/18 History sevelamer carbonate 2 tab PO TIDM 07/22/18 11/13/18 History simvastatin 20 mg PO HS 07/22/18 11/13/18 History alfuzosin 10 mg PO DAILY 11/13/18 11/13/18 History amlodipine 2.5 mg PO DAILY 11/13/18 11/13/18 History fluticasone propion-salmeterol 1 inh INHALATION Q12H 11/13/18 11/13/18 History [Advair Diskus] gabapentin 100 mg PO BID 11/13/18 11/13/18 History ipratropium-albuterol 3 ml INHALATION BID PRN 11/13/18 11/13/18 History torsemide 40 mg PO DAILY 11/13/18 11/13/18 History tramadol 50 mg PO Q12H 11/13/18 11/13/18 History albuterol sulfate 2 puff INHALATION Q6H PRN 11/14/18 11/14/18 History Patient History Medical History IDDM (insulin dependent diabetes mellitus) (Chronic) Hyperparathyroidism (Chronic) HLD (hyperlipidemia) (Chronic) 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 Diastolic heart failure (Chronic) Liver cancer (Chronic) Pancreas cancer (Chronic) Hypertension (Chronic) Diabetes (Chronic) Depression (Chronic) CKD (chronic kidney disease), stage IV (Chronic) Chronic neck pain (Chronic) Asthma (Chronic) Anemia (Chronic) Metastatic disease (Chronic) Surgical History S/P foot surgery (Chronic) bone spur removed S/P knee surgery (Chronic) S/P lumbar spine operation (Chronic) H/O cervical spine surgery (Chronic) Family History Other Breast cancer Diabetes No pertinent family history Social History Preferred Language: Bulgarian Communication Ability: Effective Visual Impairment: No Limitations Hearing Ability: Normal Airline Flight Attendant Required: No Beliefs That Will Affect Care: None marital status: Current Living Situation: Spouse Other Information That Helps Us Care for You: No Feels Safe at Home: Yes Safety Concerns: Feels Safe At This Time Smoking Status: Former smoker Tobacco Type: cigarettes, pipe and cigars ; Hx Alcohol Use: No Hx Substance Use: No Physical Exam Physical Exam: On examination of the patient's right great toe, a dressing is noted to be on which is removed. An area over the plantar surface of the great toe approximately 1-1/2 cm in width and a centimeter in length is noted to be blackened with a foul odor. There is no overt drainage noted. Most of the great toe itself is erythematous. He has no pain on palpation of the great toe and states that he cannot feel anything in the great toe. This has not changed and has been like this for some time. Dorsalis pedis pulse palpable. Capillary refill of the other toes is around 2 seconds. Results & Data Vital Signs (Past 12 Hours) Vital Signs Temp Pulse Pulse Resp BP Pulse Ox 11/14/18 15:50 83 11/14/18 15:13 36.8 C 86 17 104/51 L 93 11/14/18 11:16 37.2 C 63 19 107/53 L 97 11/14/18 08:30 85 11/14/18 07:31 37.2 C 73 20 120/63 95 Diagnostic Findings MRI OF THE RIGHT FOREFOOT WITHOUT IV CONTRAST CLINICAL HISTORY: Osteomyelitis of the 1st toe. COMPARISON STUDY: Radiographs of the right 1st toe dated 11/13/2018. TECHNIQUE: MRI of the right forefoot is performed utilizing various T1 and T2- weighted sequences in the axial, sagittal, and coronal planes. IV contrast was not administered for this examination. The examination is degraded by motion artifact. FINDINGS: There is minimal marrow edema identified within the tuft of the 1st distal phalanx. There is coarse benign drop in signal on the T1-weighted sequences. Minimal erosive change is suggested. When correlated with today's radiographic findings, this likely represents osteomyelitis. There is overlying soft tissue edema and a small cutaneous ulceration. No additional similar- appearing marrow changes are seen throughout the remainder of the forefoot. There is mild diffuse soft tissue edema of the forefoot which likely represents cellulitis. There is mild myositis of the regional musculature. The partially imaged flexor and extensor tendons are grossly intact. Moderate arthritic change is noted in the forefoot. There is no MRI evidence of organized fluid collection. IMPRESSION: 1. Findings are suspicious for osteomyelitis involving the distal tuft of the 1st distal phalanx. This corresponds to today's radiographic findings. 2. An ulceration is noted in the 1st toe with evidence of surrounding cellulitis. 3. There is no evidence of organized fluid collection. Right great toe 3 views CLINICAL HISTORY: diabetic ulcer right great toe COMPARISON: None. DISCUSSION: No acute fractures are visualized. There is air within the soft tissues adjacent to the top of the distal phalanx. There are equivocal early erosive changes. MRI would be considered the test of choice for the evaluation of possible osteomyelitis. There are vascular calcifications. IMPRESSION: 1. No evidence of acute fracture 2. Equivocal early erosive changes involving the tip of the distal phalanx 3. Soft tissue gas surrounding the distal phalanx 4. MRI would be considered the test of choice for the evaluation of possible osteomyelitis
--- NOTE | 2018-11-14 18:15 | XRay Report ---
RIGHT FOOT AP VIEW CLINICAL HISTORY: Osteomyelitis great toe COMPARISON: 11/13/2018 DISCUSSION: A single AP view of the right foot is provided for interpretation. There is gas present w ithin the soft tissues adjacent to the tuft of the distal phalanx. No fractures are visualized. No de finite cortical destructive changes are visualized on this single projection. IMPRESSION: 1. Gas present within the soft tissues adjacent to the top of the distal phalanx. This is consistent with the clinical history of a soft tissue infection 2. No definite bony destructive changes are visualized on this single projection. It should be noted that an MRI performed 11/13/2018, was reported as positive for osteomyelitis at this level Electronically signed by: Sumanth Blount M.D. 11/14/2018 6:14 PM
[2018-11-14] MEDS: DAPTOmycin 450 MG in SYRINGE 0 ML IV SCH (20:28)
[2018-11-15] MEDS: PIPERACILLIN/TAZOBACTAM 3.375 GM in DEXTROSE 5% 100 ML IV SCH ×4 (00:33→23:40)
[2018-11-15] MEDS: HEPARIN SOD 5,000 UNIT/0.5 ML VIAL SQ SCH ×3 (06:34→21:21)
[2018-11-15 06:44] LABS: Hematocrit (blood only) 26.9 % (42-52); Mean Corpuscular Hgb Conc 33.5 g/dL (32-36); Mean Corpuscular Volume 83.8 fL (80-100); Mean Platelet Volume 11.4 fL (7.4-10.4); Platelet Count 199 K/uL (130-400); RDW Coefficient of Variation 12.8 % (11.5-14.5); RDW Standard Deviation 39.4 fL (36.4-46.3); Red Blood Count 3.21 M/uL (4.7-6.1); White Blood Count 7.09 K/uL (4.8-10.8)
[2018-11-15 07:07] LABS: BUN Creatinine Ratio 17.8 (10-20); Calcium 8.2 mg/dl (8.5-10.1); Est GFR (African American) 22.6; Est GFR (Non-African American) 19.5; Potassium 4.1 mmol/L (3.5-5.1)
[2018-11-15] MEDS: CALCITRIOL 0.25 MCG CAPSULE PO SCH (07:49)
[2018-11-15] MEDS: TORSEMIDE 10 MG TAB PO SCH (07:50)
[2018-11-15] MEDS: AMLODIPINE BESYLATE 5 MG TAB PO SCH (07:50)
[2018-11-15] MEDS: SEVELAMER HCL 800 MG TABLET PO SCH ×3 (07:50→17:44)
[2018-11-15] MEDS: FLUOXETINE HCL 20 MG CAP PO SCH (07:50)
[2018-11-15] MEDS: GABAPENTIN 100 MG CAP PO SCH ×2 (07:50→20:34)
[2018-11-15] MEDS: ALFUZOSIN HCL 10 MG TAB PO SCH (07:50)
[2018-11-15] MEDS: FLUTICASONE/SALMETEROL 250/50 (ADVAIR) 14 PUFF/1 INHALER INH SCH ×2 (07:51→20:29)
[2018-11-15] MEDS: CHOLECALCIFEROL 1,000 UNITS TAB PO SCH (07:51)
[2018-11-15] MEDS: INSULIN GLARGINE SOLOSTAR 100 UNITS/ML 3 ML PEN SC SCH ×2 (08:27→20:32)
[2018-11-15] MEDS: INSULIN ASPART 100 UNITS/ML 3 ML PEN SC SCH ×4 (08:27→20:33)
[2018-11-15] MEDS ORDERED: CITALOPRAM 20 MG TAB PO SCH (09:00)
--- NOTE | 2018-11-15 10:44 | Infectious Disease Progress Nt ---
Date of Service November 15, 2018 Assessment & Plan (1) Dry gangrene: continue emperic abx, follow blood cultures, gpc noted on gram stain. . For OR today, await findings, please send deep culture. will follow. (2) Osteomyelitis of right foot: Subjective pt for OR today, debridement vs amp. tmax 38.2 overnight. Remains on dapto and zosyn. Blood cultures negative, wound culture pending but gpc noted on gram stain. creat 3 today. Results & Data Vital Signs (Past 12 Hours) Vital Signs Temp Pulse Pulse Resp BP Pulse Ox 11/15/18 09:54 87 11/15/18 07:23 37.1 C 88 18 145/66 H 92 11/15/18 05:35 37.5 C 91 H 18 136/65 94 11/15/18 00:32 37.3 C 11/14/18 23:00 38.2 C H 85 20 102/58 L 94 Laboratory Results Microbiology 11/13/18 21:44 Foot,Right Gram Stain - Final 11/13/18 16:29 Blood Aerobic Blood Culture - Preliminary No growth in Aerobic bottle after 24 hours. 11/13/18 16:29 Blood Anaerobic Blood Culture - Preliminary No growth in Anaerobic bottle after 24 hours. 11/13/18 16:42 Blood Aerobic Blood Culture - Preliminary No growth in Aerobic bottle after 24 hours. 11/13/18 16:42 Blood Anaerobic Blood Culture - Preliminary No growth in Anaerobic bottle after 24 hours. PG Care Time/CCT Total # of Minutes Spent Total Time Spent with Patient: Total time spent is greater than 50% in coordination of care (as documented) at patient's floor/unit and/or counseling patient:
[2018-11-15] MEDS ORDERED: DAPTOmycin 400 MG in SYRINGE 0 ML IV SCH (16:00)
[2018-11-15] MEDS ORDERED: SODIUM CHLORIDE 0.9% 500 ML IV ONE (16:02)
--- NOTE | 2018-11-15 16:09 | Hospitalist Progress Note ---
Date of Service November 15, 2018 Assessment & Plan (1) Ulcer of right great toe due to diabetes mellitus: (2) Dry gangrene: Patient is a 73 yr male with H/O Neuroendocrine tumor of pancreas with mets S/P chemoembolization, CKD stage IV, diastolic CHF, DM II, hyperparathyroidism and other problems presents with generalized weakness, generalized pain, nausea, chills, right toe ulcer. Right great toe dry gangrenous ulcer Right foot osteomyelitis --Foot MRI:Findings are suspicious for osteomyelitis involving the distal tuft of the 1st distal phalanx. This corresponds to today's radiographic findings. An ulceration is noted in the 1st toe with evidence of surrounding cellulitis. There is no evidence of organized fluid collection. --Blood Cx:No growth to date --Wound Culture: Strep species, coagulase-negative staph continue IV Daptomycin, Zosyn Day #3 Appreciate ID/Orthopedics Input Continue wound care (3) Generalized pain: Likely secondary to above Continue management as above (4) IDDM (insulin dependent diabetes mellitus): Last A1C 7.6 Lantus/humalog as outpt continue lantus/novolog as per protocol monitor BGs (5) Diastolic heart failure: Appears euvolemic continue torsemide Monitor volume status (6) Hypertension: BP Variable Hold amlodipine for now (7) HLD (hyperlipidemia): Hold statin while on Daptomycin use Monitor CK (8) Hyperparathyroidism: continue calcitriol (9) Neuroendocrine carcinoma of pancreas: Metastatic neuroendocrine carcinoma of the pancreas S/P chemoembolization Recent PET scan revealed increased size to tumor Follows [place]. [place]yn[place] [facility] [place] (10) Depression: continue prozac (11) CKD (chronic kidney disease), stage IV: Baseline cr 2.8 Cr at baseline Monitor renal function continue calcitriol, sevelamer Follows Nephrology Dr. Dawn May need to hold Torsemide if Cr levels worsen (12) Anemia: Anemia of chronic disease Receives q2 week procrit; however recently H/H has remained above goal therefore has not received since 09/11 monitor CBC (13) DVT prophylaxis: Heparin SQ Code Status Full Code Disposition: To be determined Follows with PCP Deedee Perkins PA-C Subjective Patient is seen and examined at bedside Feels tired BP is variable Planned for debridement versus distal great toe amputation today Denies leg pain Also denies chest pain, shortness of breath, dizziness, abdominal pain Offers no other complaints Review of Systems Review of Systems: All systems reviewed & are unremarkable except as noted in HPI & below Physical Exam Physical Exam: Physical Exam: Vitals signs as noted above General Appearance:Chronic ill appearing, no apparent distress Head: normocephalic, Atraumatic Eyes: normal inspection, EOMI Neck: supple, Trachea midline Respiratory/Chest: Normal breath sounds, CTA Cardiovascular: S1, S2, + systolic murmur Abdomen/GI:Soft, Non tender, Bowel sounds present Extremities/Musculoskelatal:normal inspection, right great toe ulceration with necrosis, dry gangrene Neurologic/Psych:AAOX3, grossly no focal neurological deficits Skin: normal color, warm Results & Data Vital Signs (Past 12 Hours) Vital Signs Temp Pulse Pulse Resp BP Pulse Ox 11/15/18 15:29 37.3 C 83 18 93/53 L 93 11/15/18 12:13 37.6 C H 84 16 111/56 L 97 11/15/18 09:54 87 11/15/18 07:23 37.1 C 88 18 145/66 H 92 11/15/18 05:35 37.5 C 91 H 18 136/65 94 Laboratory Results Short CBC 11/15/18 Range/Units 06:16 WBC 7.09 (4.8-10.8) K/uL Hgb 9.0 L (14.0-18.0) g/dL Hct 26.9 L (42-52) % Plt Count 199 (130-400) K/uL BMP 11/15/18 06:16 Sodium 139 Potassium 4.1 Chloride 103 Carbon Dioxide 28 BUN 55 H Creatinine 3.06 H D Glucose 173 H Calcium 8.2 L
[2018-11-15] MEDS: OXYCODONE/ACETAMINOPHEN 5mg/325mg TAB PO PRN (20:28)
[2018-11-15] MEDS: DAPTOmycin 450 MG in SYRINGE 0 ML IV SCH (20:29)
[2018-11-16] MEDS: HEPARIN SOD 5,000 UNIT/0.5 ML VIAL SQ SCH ×3 (05:12→21:18)
[2018-11-16 06:43] LABS: Hematocrit (blood only) 27.1 % (42-52); Hemoglobin 9.3 g/dL (14.0-18.0); Mean Corpuscular Hgb Conc 34.3 g/dL (32-36); Mean Corpuscular Volume 83.9 fL (80-100); Mean Platelet Volume 11.4 fL (7.4-10.4); Platelet Count 211 K/uL (130-400); RDW Coefficient of Variation 12.8 % (11.5-14.5); RDW Standard Deviation 39.4 fL (36.4-46.3); Red Blood Count 3.23 M/uL (4.7-6.1); White Blood Count 6.56 K/uL (4.8-10.8)
[2018-11-16 07:20] LABS: BUN Creatinine Ratio 18.6 (10-20); Calcium 8.3 mg/dl (8.5-10.1); Creatinine Clr Calc Pharmacy 27.1 ml/min; Est GFR (African American) 23.7; Est GFR (Non-African American) 20.5; Potassium 3.9 mmol/L (3.5-5.1)
[2018-11-16] MEDS: CHOLECALCIFEROL 1,000 UNITS TAB PO SCH (08:10)
[2018-11-16] MEDS: INSULIN GLARGINE SOLOSTAR 100 UNITS/ML 3 ML PEN SC SCH ×2 (08:10→21:15)
[2018-11-16] MEDS: INSULIN ASPART 100 UNITS/ML 3 ML PEN SC SCH ×4 (08:10→21:17)
[2018-11-16] MEDS: FLUOXETINE HCL 20 MG CAP PO SCH (08:10)
[2018-11-16] MEDS: GABAPENTIN 100 MG CAP PO SCH ×2 (08:10→20:14)
[2018-11-16] MEDS: SEVELAMER HCL 800 MG TABLET PO SCH ×3 (08:10→17:30)
[2018-11-16] MEDS: CALCITRIOL 0.25 MCG CAPSULE PO SCH (08:11)
[2018-11-16] MEDS: ALFUZOSIN HCL 10 MG TAB PO SCH (08:11)
[2018-11-16] MEDS: FLUTICASONE/SALMETEROL 250/50 (ADVAIR) 14 PUFF/1 INHALER INH SCH ×2 (08:11→20:15)
[2018-11-16] MEDS: PIPERACILLIN/TAZOBACTAM 3.375 GM in DEXTROSE 5% 100 ML IV SCH ×2 (08:13→15:42)
[2018-11-16] MEDS: TORSEMIDE 10 MG TAB PO SCH (09:10)
--- NOTE | 2018-11-16 12:03 | History & Physical Bridge Note ---
Date of Service November 16, 2018 History & Physical Bridge Note I have examined the patient, reviewed the History & Physical and in the interval since the performance of the History & Physical I have noted the following changes of clinical significance: no changes noted
[2018-11-16] MEDS ORDERED: BACITRACIN INJ 50,000 UNIT VIAL ONE ×2 (12:14→12:24)
--- NOTE | 2018-11-16 12:16 | Anesthesiology Consultation ---
Date of Service November 16, 2018 Assessment & Plan (1) Encounter for pre-operative examination: Chart Review Chart Review: Acceptable Risk for Surgery and Patient NOT seen in Pre Admission Testing Consults Requested none History Surgery Operation Date: 11/16/18 13:00 Proposed Procedures p Incision and Drainage Extremity(Right) - Cody Wiseman MD s Amputation Toe VERSE. I&D(Right) - Cody Wiseman MD Height/Weight Height: 5 ft 10 in Weight: 98 kg Allergies Allergy/AdvReac Type Severity Reaction Status Date / Time Sulfa (Sulfonamide Allergy Mild RASH Verified 11/13/18 17:10 Antibiotics) NSAIDS (Non-Steroidal Allergy Unknown "NO Verified 11/13/18 17:10 Anti-Inflamma NSAIDS"due to kidney disease Medications Home Medications Medication Instructions Recorded Confirmed Last Taken Glucagon Emergency Kit (human) 1 mg SUBCUT DIRECTED PRN 07/22/18 11/13/18 Unknown Lantus Solostar U-100 Insulin 60 unit SUBCUT QPM 07/22/18 11/13/18 07/22/18 ProAir RespiClick 2 inh INHALATION Q4 PRN 07/22/18 11/13/18 Unknown Sandostatin LAR Depot 0 mg IM DIRECTED 07/22/18 11/13/18 11/04/18 acetaminophen 650 mg PO Q4H PRN 07/22/18 11/13/18 Unknown calcitriol 0.25 mcg PO QAM 07/22/18 11/13/18 08/20/18 09:00 epoetin sabrina 0 unit SUBCUT .[id number] 07/22/18 11/13/18 08/16/18 ergocalciferol (vitamin D2) 2,000 unit PO DAILY 07/22/18 11/13/18 07/15/18 fluoxetine 20 mg PO DAILY 07/22/18 11/13/18 08/20/18 09:00 insulin lispro [Humalog KwikPen 0 unit SUBCUT DIRECTED 07/22/18 11/13/18 08/20/18 09:00 Insulin] levalbuterol HCl 0.63 mg INHALATION DIRECTED PRN 07/22/18 11/13/18 Unknown ranitidine HCl 150 mg PO HS 07/22/18 11/13/18 07/21/18 sevelamer carbonate 2 tab PO TIDM 07/22/18 11/13/1819 09:00 simvastatin 20 mg PO HS 07/22/18 11/13/18 07/21/18 alfuzosin 10 mg PO DAILY 11/13/18 11/13/18 Unknown amlodipine 2.5 mg PO DAILY 11/13/18 11/13/18 Unknown fluticasone propion-salmeterol 1 inh INHALATION Q12H 11/13/18 11/13/18 Unknown [Advair Diskus] gabapentin 100 mg PO BID 11/13/18 11/13/18 Unknown ipratropium-albuterol 3 ml INHALATION BID PRN 11/13/18 11/13/18 Unknown torsemide 40 mg PO DAILY 11/13/18 11/13/18 Unknown tramadol 50 mg PO Q12H 11/13/18 11/13/18 Unknown albuterol sulfate 2 puff INHALATION Q6H PRN 11/14/18 11/14/18 Unknown Active Medications Generic Name Dose Route Start Last Admin Trade Name Freq PRN Reason Stop Dose Admin Alfuzosin HCl 10 mg 11/14/18 09:00 11/16/18 08:11 Uroxatral PO 12/14/18 08:59 10 mg DAILY JOSSUE Administration Amlodipine Besylate 2.5 mg 11/14/18 09:00 11/15/18 07:50 Norvasc PO 12/14/18 08:59 2.5 mg DAILY JOSSUE Administration Calcitriol 0.25 mcg 11/14/18 09:00 11/16/18 08:11 Rocaltrol PO 12/14/18 08:59 0.25 mcg QAM JOSSUE Administration Fluoxetine HCl 20 mg 11/14/18 09:00 11/16/18 08:10 Prozac PO 12/14/18 08:59 20 mg DAILY JOSSUE Administration Gabapentin 100 mg 11/13/18 21:32 11/16/18 08:10 Neurontin PO 12/13/18 21:31 100 mg BID JOSSUE Administration Heparin Sodium (Porcine) 5,000 units 11/13/18 22:00 11/16/18 05:12 Heparin Sodium (Porcine) SQ 12/13/18 21:59 Not Given Q8 JOSSUE Piperacillin Sod/Tazobactam 115 mls @ 28.75 mls/hr 11/14/18 00:00 11/16/18 08:13 Sod 3.375 gm/ Dextrose IV 12/26/18 00:00 28.8 mls/hr Q8H JOSSUE Administration Protocol Daptomycin 450 mg/ Syringe 9 mls @ 4.5 mls/min 11/14/18 20:00 11/15/18 20:29 IV 12/26/18 19:59 4.5 mls/min Q24H JOSSUE Administration Protocol Insulin Aspart 0 units 11/13/18 21:32 11/16/18 08:10 Novolog Flexpen SC 12/13/18 21:31 Not Given ACHS JOSSUE Insulin Glargine 0 - 20 units 11/13/18 21:32 11/16/18 08:10 Lantus Solostar Pen SC 12/13/18 21:31 10 units BID JOSSUE Administration Oxycodone/Acetaminophen 1 tab 11/14/18 08:39 11/15/18 20:28 Percocet 5mg/325mg PO 11/28/18 08:38 1 tab Q8H PRN Administration Pain Ranitidine HCl 150 mg 11/13/18 21:32 11/15/18 20:35 Zantac PO 12/13/18 21:31 150 mg HS JOSSUE Administration Fluticasone/Salmeterol 1 puffs 11/13/18 21:32 11/16/18 08:11 Advair Diskus 250/50 INH 12/13/18 21:31 1 puffs BID JOSSUE Administration Sevelamer HCl 1,600 mg 11/14/18 08:00 11/16/18 08:10 Renagel PO 12/14/18 07:59 1,600 mg TIDM JOSSUE Administration Torsemide 40 mg 11/14/18 09:00 11/16/18 09:10 Demadex PO 12/14/18 08:59 40 mg QAM JOSSUE Administration Tramadol HCl 50 mg 11/13/18 21:32 11/14/18 00:42 Ultram PO 12/13/18 21:31 50 mg Q12H PRN Administration pain Vitamin D 2,000 units 11/14/18 09:00 11/16/18 08:10 Vitamin D3 PO 12/14/18 08:59 2,000 units QAM JOSSUE Administration NPO Date Last Intake of Fluids: 11/15/18 Time Last Intake of Fluids: 21:00 Date Last Intake of Solids: 11/15/18 Time Last Intake of Solids: 17:00 Past Medical History Medical History IDDM (insulin dependent diabetes mellitus) (Chronic) Hyperparathyroidism (Chronic) HLD (hyperlipidemia) (Chronic) 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 Diastolic heart failure (Chronic) Liver cancer (Chronic) Pancreas cancer (Chronic) Hypertension (Chronic) Diabetes (Chronic) Depression (Chronic) CKD (chronic kidney disease), stage IV (Chronic) Chronic neck pain (Chronic) Asthma (Chronic) Anemia (Chronic) Metastatic disease (Chronic) Past Family History Family History Other Breast cancer Diabetes No pertinent family history Past Surgical History Surgical History S/P foot surgery (Chronic) bone spur removed S/P knee surgery (Chronic) S/P lumbar spine operation (Chronic) H/O cervical spine surgery (Chronic) Social History Smoking Status: Former smoker tobacco type: cigarettes, pipe and cigars Hx Alcohol Use: No Hx Substance Use: No Physical Exam Vital Signs Last Vital Signs Temp 37.0 C 11/16/18 11:33 Pulse 85 11/16/18 11:33 Resp 18 11/16/18 11:33 BP 113/57 L 11/16/18 11:33 Pulse Ox 96 11/16/18 11:33 Testing Laboratory Results 11/16/18 06:00 11/16/18 06:00 PT 11.0 Seconds (9.0-12.0) 11/13/18 16:29 INR 1.1 (0.9-1.1) 11/13/18 16:29 APTT 27.1 Seconds (21.0-31.0) 11/13/18 16:29 Hemoglobin A1c 9.1 % (4.5-5.6) H 11/14/18 05:58 Urine Color Yellow 11/13/18 18:33 Urine Appearance Clear (Clear) 11/13/18 18:33 Urine pH 5.0 (4.5-7.5) 11/13/18 18:33 Ur Specific [place] 1.015 (1.000-1.030) 11/13/18 18:33 Urine Protein 1+ (Negative) H 11/13/18 18:33 Urine Glucose (UA) 1+ (Negative) H 11/13/18 18:33 Urine Ketones Negative (Negative) 11/13/18 18:33 Urine Nitrite Negative (Negative) 11/13/18 18:33 Ur Leukocyte Esterase Negative (Negative) 11/13/18 18:33 Urine WBC (Auto) 1-5 /hpf (0-5) 11/13/18 18:33 Urine RBC (Auto) 0-4 /hpf (0-4) 11/13/18 18:33 U Hyaline Cast (Auto) 0 /lpf (0-5) 11/13/18 18:33 U Epithel Cells (Auto) 0-5 /lpf (0-5) 11/13/18 18:33 Urine Bacteria (Auto) Negative (Negative) 11/13/18 18:33 11/13/18 21:44 Gram Stain - Final Foot,Right Wound Culture - Preliminary Streptococcus species Coag negative Staphylococcus 11/13/18 16:29 Aerobic Blood Culture - Preliminary Blood No growth in Aerobic bottle after 48 hours. Anaerobic Blood Culture - Preliminary No growth in Anaerobic bottle after 48 hours. 11/13/18 16:42 Aerobic Blood Culture - Preliminary Blood No growth in Aerobic bottle after 48 hours. Anaerobic Blood Culture - Preliminary No growth in Anaerobic bottle after 48 hours. 11/16/18 07:49 POC Glucose 165 H
[2018-11-16] MEDS ORDERED: ATROPINE SULFATE 0.1 MG/ML 10ML SYR IV PRN (12:21)
[2018-11-16] MEDS ORDERED: HYDROmorphone INJ 2 MG/ML SYR/VIAL IV PRN (12:21)
[2018-11-16] MEDS ORDERED: ePHEDrine sulfate 50 MG/ML AMP IV PRN (12:21)
[2018-11-16] MEDS ORDERED: BUPIVACAINE 0.5 % 5 MG/1 ML MPF 30ML VIAL ONE (12:30)
[2018-11-16] MEDS ORDERED: ONDANSETRON INJ 2 MG/ML 2 ML VIAL ONE (12:36)
[2018-11-16] MEDS ORDERED: PROPOFOL IV EMULSION 10 MG/ML 20 ML VIAL IV ONE (12:36)
[2018-11-16] MEDS ORDERED: LIDOCAINE HCL 2% 2 ML VIAL/AMP(20MG/ML) INFIL ONE (12:36)
--- NOTE | 2018-11-16 13:08 | Operative Report ---
Post Operative Report Pre & Post Diagnosis Operation Date: 11/16/18 13:00 Pre-Op Diagnosis: Gangrene right great toe Post-Op Diagnosis: Gangrene right great toe Procedure Operation Date: 11/16/18 13:00 Actual Procedures p Right Great Toe Distal Phalanx Amputation - Cody Wiseman MD Surgeon Cody Wiseman MD Denture Laboratory Technician None Estimated Blood Loss 1 Findings Consistent with Post-Op Diagnosis Specimens Great toe distal phalanx and cultures Drains None Anesthesia Type General Complications none Disposition Accompanied Patient To Recovery: No Disposition: Recovery Room Indications The patient is a 73-year-old male developed a gangrenous wound over the dorsum of the right great toe. Imaging demonstrated likely osteomyelitis of the distal phalanx. Given the nature of the wound and the depth of it I recommended irrigation debridement versus amputation. Description of Procedure Risks benefits and alternatives of surgery including but not limited to infection, DVT, pain, stiffness, need for revision surgery, damage to blood vessels damage to nerves or risks of anesthesia were discussed with the patient and she wished to proceed. Patient was identified in the laterality was confirmed and marked. A well-padded tourniquet was applied and then the limb was prepped and draped in standard manner with Betadine. The limb was exsanguinated and the tourniquet was inflated. The toe was necrotic. The region of necrosis extended along the dorsum of the distal phalanx. He had a hammertoe with the contracture at the IP joint. The necrosis did not extend past the region of the distal phalanx. I made a full-thickness incision around the necrotic area and excise this. I then trimmed the skin back to good healthy bleeding tissue. Identified the digital nerves and pulled them taut and then incised those retracting back into the foot. Identified the blood vessels and cauterized these. I then dissected circumferentially through the joint capsule and released the tendon insertions at the level of the anterior phalangeal joint. The toe was then excised. The amputated portion was sent as specimen. I also took cultures of the surrounding soft tissues that were still a little cellulitic. I rongeured back the distal end of the proximal phalanx to remove the condyles as well as to be able to have a tension-free closure. The wound was thoroughly irrigated. I loosely placed some 3-0 Vicryl in the subcutaneous tissue and 3-0 nylon in simple stitch fashion for closure. I attest to the content of the Intraoperative Record and any orders documented therein. Any exceptions are noted below.
[2018-11-16] MEDS ORDERED: MAGNESIUM HYDROXIDE SUSP 30 ML UDC PO PRN (13:12)
[2018-11-16] MEDS ORDERED: NALOXONE HCL 0.4 MG/1 ML VIAL/CARP IV PRN (13:12)
[2018-11-16] MEDS ORDERED: ONDANSETRON INJ 2 MG/ML 2 ML VIAL IV PRN (13:12)
[2018-11-16] MEDS ORDERED: BISACODYL 10 MG SUPP PR PRN (13:12)
[2018-11-16] MEDS ORDERED: SODIUM CHLORIDE 0.9% 1000ML 1,000 ML IV SCH (13:15)
--- NOTE | 2018-11-16 13:44 | Anesthesiology Progress Note ---
Date of Service November 16, 2018 Anesthesia Post Procedure Vital Signs Vital Signs: Temp Pulse Pulse Pulse Resp BP Pulse Ox 11/16/18 13:16 36.9 C 85 15 165/78 H 100 11/16/18 11:33 37.0 C 85 18 113/57 L 96 11/16/18 08:02 82 11/16/18 07:30 37.1 C 81 18 119/56 L 96 11/16/18 04:25 36.9 C 81 19 126/63 97 11/16/18 00:00 82 11/15/18 23:00 36.9 C 82 20 92/54 L 96 11/15/18 22:16 88 11/15/18 19:00 37.2 C 82 20 138/61 95 11/15/18 15:29 37.3 C 83 18 93/53 L 93 Pain Intensity Generalized: Pain Intensity: 7 Left Foot: Pain Intensity: 0 Transfer of Care Handoff Completed per policy Notes Mental Status: alert / awake / arousable Patient Amnestic to Procedure: Yes Nausea / Vomiting: adequately controlled Pain: adequately controlled Airway Patency, RR, SpO2: stable & adequate BP & HR: stable & adequate Hydration State: stable & adequate Anesthetic Complications: no major complications apparent and Pt Satisfied with anesthetic care
--- NOTE | 2018-11-16 15:06 | Hospitalist Progress Note ---
Date of Service November 16, 2018 Assessment & Plan (1) Ulcer of right great toe due to diabetes mellitus: (2) Dry gangrene: Patient is a 73 yr male with H/O Neuroendocrine tumor of pancreas with mets S/P chemoembolization, CKD stage IV, diastolic CHF, DM II, hyperparathyroidism and other problems presents with generalized weakness, generalized pain, nausea, chills, right toe ulcer. Right great toe dry gangrenous ulcer Right foot osteomyelitis --Foot MRI:Findings are suspicious for osteomyelitis involving the distal tuft of the 1st distal phalanx. This corresponds to today's radiographic findings. An ulceration is noted in the 1st toe with evidence of surrounding cellulitis. There is no evidence of organized fluid collection. --Blood Cx:No growth to date --Wound Culture: S Enterococcus faecalis, coagulase-negative staph S/P Right Great Toe Distal Phalanx Amputation POD # 0 continue IV Daptomycin, Zosyn Day #4 Appreciate ID/Orthopedics Input Continue wound care (3) Generalized pain: Likely secondary to above Continue management as above (4) IDDM (insulin dependent diabetes mellitus): Last A1C 7.6 Lantus/humalog as outpt continue lantus/novolog as per protocol monitor BGs (5) Diastolic heart failure: Appears euvolemic continue torsemide Monitor volume status (6) Hypertension: BP Variable Hold amlodipine for now Monitor (7) HLD (hyperlipidemia): Hold statin while on Daptomycin use Monitor CK (8) Hyperparathyroidism: continue calcitriol (9) Neuroendocrine carcinoma of pancreas: Metastatic neuroendocrine carcinoma of the pancreas S/P chemoembolization Recent PET scan revealed increased size to tumor Follows with Dr. Huynh [facility] (10) Depression: continue prozac (11) CKD (chronic kidney disease), stage IV: Baseline cr 2.8 Cr at baseline Monitor renal function continue calcitriol, sevelamer Follows Nephrology Dr. Dawn May need to hold Torsemide if Cr levels worsen (12) Anemia: Anemia of chronic disease Receives q2 week procrit; however recently H/H has remained above goal therefore has not received since 09/11 monitor CBC (13) DVT prophylaxis: Heparin SQ Code Status Full Code Disposition: To be determined Follows with PCP Deedee Perkins PA-C Subjective Patient is seen and examined at bedside Patient had right great toe distal phalanx amputation today Complains of generalized pain, weakness Denies chest pain, shortness of breath, dizziness, abdominal pain Review of Systems Review of Systems: All systems reviewed & are unremarkable except as noted in HPI & below Physical Exam Physical Exam: Physical Exam: Vitals signs as noted above General Appearance:Chronic ill appearing, no apparent distress Head: normocephalic, Atraumatic Eyes: normal inspection, EOMI Neck: supple, Trachea midline Respiratory/Chest: Normal breath sounds, CTA Cardiovascular: S1, S2, + systolic murmur Abdomen/GI:Soft, Non tender, Bowel sounds present Extremities/Musculoskelatal:normal inspection, right great toe S/P amputation Neurologic/Psych:AAOX3, grossly no focal neurological deficits Skin: normal color, warm Results & Data Vital Signs (Past 12 Hours) Vital Signs Temp Pulse Pulse Pulse Resp BP Pulse Ox 11/16/18 14:41 37.0 C 82 16 128/65 11/16/18 14:10 82 18 124/53 L 94 11/16/18 14:00 78 16 134/50 L 94 11/16/18 13:50 36.8 C 79 15 136/44 L 95 11/16/18 13:40 80 16 146/62 H 100 11/16/18 13:30 82 18 144/63 H 100 11/16/18 13:20 88 16 159/62 H 100 11/16/18 13:16 36.9 C 85 15 165/78 H 100 11/16/18 11:33 37.0 C 85 18 113/57 L 96 11/16/18 08:02 82 11/16/18 07:30 37.1 C 81 18 119/56 L 96 11/16/18 04:25 36.9 C 81 19 126/63 97 Laboratory Results Short CBC 11/16/18 Range/Units 06:00 WBC 6.56 (4.8-10.8) K/uL Hgb 9.3 L (14.0-18.0) g/dL Hct 27.1 L (42-52) % Plt Count 211 (130-400) K/uL BMP 11/16/18 06:00 Sodium 139 Potassium 3.9 Chloride 103 Carbon Dioxide 29 BUN 55 H Creatinine 2.94 H Glucose 133 H Calcium 8.3 L
[2018-11-16] MEDS: OXYCODONE/ACETAMINOPHEN 5mg/325mg TAB PO PRN (20:13)
[2018-11-16] MEDS: DOCUSATE SODIUM 100 MG CAP PO SCH (20:14)
[2018-11-16] MEDS: SENNA 8.6 MG TAB PO SCH (20:14)
[2018-11-16] MEDS: DAPTOmycin 450 MG in SYRINGE 0 ML IV SCH (20:19)
[2018-11-16] MEDS ORDERED: Nursing to Pharmacy Communication ONE ×2 (21:25→23:22)
[2018-11-16] MEDS ORDERED: INSULIN GLARGINE SOLOSTAR 100 UNITS/ML 3 ML PEN SQ STA (21:29)
[2018-11-17] MEDS ORDERED: INSULIN ASPART 100 UNITS/ML 3 ML PEN SC SCH
[2018-11-17] MEDS: PIPERACILLIN/TAZOBACTAM 3.375 GM in DEXTROSE 5% 100 ML IV SCH ×4 (00:06→23:57)
[2018-11-17 06:03] LABS: Hematocrit (blood only) 26.4 % (42-52); Hemoglobin 8.8 g/dL (14.0-18.0); Mean Corpuscular Hgb Conc 33.3 g/dL (32-36); Mean Corpuscular Volume 84.9 fL (80-100); Mean Platelet Volume 10.7 fL (7.4-10.4); Platelet Count 219 K/uL (130-400); RDW Coefficient of Variation 12.9 % (11.5-14.5); RDW Standard Deviation 40.2 fL (36.4-46.3); Red Blood Count 3.11 M/uL (4.7-6.1); White Blood Count 6.86 K/uL (4.8-10.8)
[2018-11-17] MEDS: HEPARIN SOD 5,000 UNIT/0.5 ML VIAL SQ SCH ×3 (06:18→21:22)
[2018-11-17 06:30] LABS: BUN Creatinine Ratio 18.7 (10-20); Calcium 8.3 mg/dl (8.5-10.1); Creatinine Clr Calc Pharmacy 28.2 ml/min; Est GFR (African American) 24.8; Est GFR (Non-African American) 21.4; Potassium 4.2 mmol/L (3.5-5.1)
--- NOTE | 2018-11-17 07:27 | Infectious Disease Progress Nt ---
Date of Service November 17, 2018 Assessment & Plan (1) Dry gangrene: will stop dapto and continue zoysn for now, suspect anaerobes as well. follow blood cultures, remain negative. will likely require prolonged abx but may be able to d/c on po abx,will follow. (2) Osteomyelitis of right foot: Subjective s/p distal amp, tolerated well blood cultures 11/13 remain negative. afebrile. wbc 8. wound culture growing hugo sensitive E. faecalis and [employer] ( suspect this is skin alex). remains on Dapto and zosyn, tolerting well. Results & Data Vital Signs (Past 12 Hours) Vital Signs Temp Pulse Pulse Pulse Resp BP Pulse Ox 11/17/18 07:03 37.1 C 77 20 132/56 L 95 11/17/18 04:00 36.9 C 79 18 126/57 L 95 11/16/18 23:34 77 11/16/18 22:43 36.8 C 79 18 124/48 L 95 Laboratory Results Microbiology 11/13/18 21:44 Foot,Right Gram Stain - Final 11/13/18 21:44 Foot,Right Wound Culture - Final Enterococcus faecalis Coag negative Staphylococcus 11/13/18 16:29 Blood Aerobic Blood Culture - Preliminary No growth in Aerobic bottle after 48 hours. 11/13/18 16:29 Blood Anaerobic Blood Culture - Preliminary No growth in Anaerobic bottle after 48 hours. 11/13/18 16:42 Blood Aerobic Blood Culture - Preliminary No growth in Aerobic bottle after 48 hours. 11/13/18 16:42 Blood Anaerobic Blood Culture - Preliminary No growth in Anaerobic bottle after 48 hours. PG Care Time/CCT Total # of Minutes Spent Total Time Spent with Patient: Total time spent is greater than 50% in coordination of care (as documented) at patient's floor/unit and/or counseling patient:
[2018-11-17] MEDS: INSULIN ASPART 100 UNITS/ML 3 ML PEN SC SCH ×4 (09:09→21:27)
[2018-11-17] MEDS: TORSEMIDE 10 MG TAB PO SCH (09:10)
[2018-11-17] MEDS: INSULIN GLARGINE SOLOSTAR 100 UNITS/ML 3 ML PEN SQ SCH ×2 (09:10→21:28)
[2018-11-17] MEDS: GABAPENTIN 100 MG CAP PO SCH ×2 (09:10→21:22)
[2018-11-17] MEDS: CALCITRIOL 0.25 MCG CAPSULE PO SCH (09:10)
[2018-11-17] MEDS: FLUTICASONE/SALMETEROL 250/50 (ADVAIR) 14 PUFF/1 INHALER INH SCH ×2 (09:10→21:22)
[2018-11-17] MEDS: SEVELAMER HCL 800 MG TABLET PO SCH ×3 (09:11→17:18)
[2018-11-17] MEDS: FLUOXETINE HCL 20 MG CAP PO SCH (09:11)
[2018-11-17] MEDS: CHOLECALCIFEROL 1,000 UNITS TAB PO SCH (09:11)
[2018-11-17] MEDS: ALFUZOSIN HCL 10 MG TAB PO SCH (09:11)
[2018-11-17] MEDS: DOCUSATE SODIUM 100 MG CAP PO SCH ×2 (09:11→21:22)
[2018-11-17] MEDS: MULTIVITAMIN TAB PO SCH (09:11)
--- NOTE | 2018-11-17 09:44 | Orthopedic Progress Note ---
Date of Service November 17, 2018 Assessment & Plan (1) Osteomyelitis of right foot: s/p right great toe partial amputation and I & D Per ID: stop Dapto and continue zosyn PT/OT Dressing change tomorrow. Subjective Pod#1 patient resting comfortably in bed. No complaints. No CP, SOB, dizziness Physical Exam Physical Exam: right LE dressing intact. calves soft nontender Results & Data Vital Signs (Past 12 Hours) Vital Signs Temp Pulse Pulse Pulse Resp BP Pulse Ox 11/17/18 07:03 37.1 C 77 20 132/56 L 95 11/17/18 04:00 36.9 C 79 18 126/57 L 95 11/16/18 23:34 77 11/16/18 22:43 36.8 C 79 18 124/48 L 95
--- NOTE | 2018-11-17 14:06 | Hospitalist Progress Note ---
Date of Service November 17, 2018 Assessment & Plan (1) Ulcer of right great toe due to diabetes mellitus: (2) Dry gangrene: Patient is a 73 yr male with H/O Neuroendocrine tumor of pancreas with mets S/P chemoembolization, CKD stage IV, diastolic CHF, DM II, hyperparathyroidism and other problems presents with generalized weakness, generalized pain, nausea, chills, right toe ulcer. Right great toe dry gangrenous ulcer Right foot osteomyelitis --Foot MRI:Findings are suspicious for osteomyelitis involving the distal tuft of the 1st distal phalanx. This corresponds to today's radiographic findings. An ulceration is noted in the 1st toe with evidence of surrounding cellulitis. There is no evidence of organized fluid collection. --Blood Cx:No growth to date --Wound Culture: S Enterococcus faecalis, coagulase negative staph S/P Right Great Toe Distal Phalanx Amputation and I & D POD # 1 continue IV Daptomycin, Zosyn Day #4>> Transitioned to Zosyn Day #5 Appreciate ID/Orthopedics Input Continue wound care Planned for dressing change tomorrow Activity as per Ortho PT/OT prior to discharge (3) Generalized pain: Likely secondary to above Continue management as above (4) IDDM (insulin dependent diabetes mellitus): Last A1C 7.6 Lantus/humalog as outpt continue lantus/novolog as per protocol monitor BGs (5) Diastolic heart failure: Appears euvolemic continue torsemide Monitor volume status (6) Hypertension: BP stable Resume amlodipine as able Monitor (7) HLD (hyperlipidemia): Hold statin while on Daptomycin use Monitor CK (8) Hyperparathyroidism: continue calcitriol (9) Neuroendocrine carcinoma of pancreas: Metastatic neuroendocrine carcinoma of the pancreas S/P chemoembolization Recent PET scan revealed increased size to tumor Follows with Dr. Huynh [facility] [place] (10) Depression: continue prozac (11) CKD (chronic kidney disease), stage IV: Baseline cr 2.8 Cr at baseline Monitor renal function continue calcitriol, sevelamer Follows Nephrology Dr. Dawn May need to hold Torsemide if Cr levels worsen (12) Anemia: Anemia of chronic disease Receives q2 week procrit; however recently H/H has remained above goal therefore has not received since 09/11 monitor CBC (13) DVT prophylaxis: Heparin SQ Code Status Full Code Disposition: To be determined Follows with PCP Deedee Perkins PA-C Subjective Patient is seen and examined at bedside States feeling tired Has been sleeping most of the day since last few days Denies any foot pain at surgical site Generalized pain improving Offers no other complaints Denies chest pain, shortness of breath, dizziness, abdominal pain Review of Systems Review of Systems: All systems reviewed & are unremarkable except as noted in HPI & below Physical Exam Physical Exam: Physical Exam: Vitals signs as noted above General Appearance:Chronic ill appearing, no apparent distress Head: normocephalic, Atraumatic Eyes: normal inspection, EOMI Neck: supple, Trachea midline Respiratory/Chest: Normal breath sounds, CTA Cardiovascular: S1, S2, + systolic murmur Abdomen/GI:Soft, Non tender, Bowel sounds present Extremities/Musculoskelatal:normal inspection, right foot in surgical dressing Neurologic/Psych:AAOX3, grossly no focal neurological deficits Skin: normal color, warm Results & Data Vital Signs (Past 12 Hours) Vital Signs Temp Pulse Pulse Pulse Resp BP Pulse Ox 11/17/18 12:00 36.9 C 78 18 134/58 L 95 11/17/18 10:03 77 11/17/18 07:03 37.1 C 77 20 132/56 L 95 11/17/18 04:00 36.9 C 79 18 126/57 L 95 Laboratory Results Short CBC 11/17/18 Range/Units 05:42 WBC 6.86 (4.8-10.8) K/uL Hgb 8.8 L (14.0-18.0) g/dL Hct 26.4 L (42-52) % Plt Count 219 (130-400) K/uL BMP 11/17/18 05:42 Sodium 139 Potassium 4.2 Chloride 104 Carbon Dioxide 29 BUN 53 H Creatinine 2.83 H Glucose 125 H Calcium 8.3 L
[2018-11-17] MEDS: SENNA 8.6 MG TAB PO SCH (21:22)
[2018-11-18] MEDS: HEPARIN SOD 5,000 UNIT/0.5 ML VIAL SQ SCH ×3 (05:31→21:14)
[2018-11-18 06:05] LABS: Hematocrit (blood only) 27.2 % (42-52); Hemoglobin 8.9 g/dL (14.0-18.0)
[2018-11-18 06:29] LABS: BUN Creatinine Ratio 18.1 (10-20); Calcium 8.5 mg/dl (8.5-10.1); Creatinine Clr Calc Pharmacy 25.3 ml/min; Est GFR (African American) 22.1; Potassium 4.3 mmol/L (3.5-5.1)
[2018-11-18] MEDS: PIPERACILLIN/TAZOBACTAM 3.375 GM in DEXTROSE 5% 100 ML IV SCH (07:48)
[2018-11-18] MEDS: FLUOXETINE HCL 20 MG CAP PO SCH (07:49)
[2018-11-18] MEDS: TORSEMIDE 10 MG TAB PO SCH (07:49)
[2018-11-18] MEDS: SEVELAMER HCL 800 MG TABLET PO SCH ×3 (07:49→17:33)
[2018-11-18] MEDS: FLUTICASONE/SALMETEROL 250/50 (ADVAIR) 14 PUFF/1 INHALER INH SCH ×2 (07:49→21:10)
[2018-11-18] MEDS: ALFUZOSIN HCL 10 MG TAB PO SCH (07:50)
[2018-11-18] MEDS: CHOLECALCIFEROL 1,000 UNITS TAB PO SCH (07:50)
[2018-11-18] MEDS: CALCITRIOL 0.25 MCG CAPSULE PO SCH (07:50)
[2018-11-18] MEDS: DOCUSATE SODIUM 100 MG CAP PO SCH ×2 (07:50→21:07)
[2018-11-18] MEDS: MULTIVITAMIN TAB PO SCH (07:50)
[2018-11-18] MEDS: GABAPENTIN 100 MG CAP PO SCH ×2 (07:51→21:08)
[2018-11-18] MEDS ORDERED: SODIUM CHLORIDE 0.9% 500 ML IV ONE (08:14)
--- NOTE | 2018-11-18 08:17 | Anesthesiology Progress Note ---
Date of Service November 18, 2018 Anesthesia Post Procedure Vital Signs Vital Signs: Temp Pulse Pulse Pulse Resp BP Pulse Ox 11/18/18 04:00 37.4 C 81 18 149/61 H 94 11/18/18 00:00 86 11/17/18 23:45 37.1 C 83 18 154/63 H 96 11/17/18 18:55 37.1 C 83 16 138/65 96 11/17/18 15:52 78 11/17/18 15:22 36.8 C 80 18 112/61 95 11/17/18 12:00 36.9 C 78 18 134/58 L 95 11/17/18 10:03 77 Pain Intensity Generalized: Pain Intensity: 0 Left Foot: Pain Intensity: 0 Right Foot: Pain Intensity: 0 Notes Mental Status: alert / awake / arousable Patient Amnestic to Procedure: Yes Nausea / Vomiting: adequately controlled Pain: adequately controlled Airway Patency, RR, SpO2: stable & adequate BP & HR: stable & adequate Hydration State: stable & adequate Anesthetic Complications: no major complications apparent and Pt Satisfied with anesthetic care
[2018-11-18] MEDS: INSULIN GLARGINE SOLOSTAR 100 UNITS/ML 3 ML PEN SQ SCH ×2 (09:17→21:10)
[2018-11-18] MEDS: INSULIN ASPART 100 UNITS/ML 3 ML PEN SC SCH ×4 (09:17→21:13)
--- NOTE | 2018-11-18 10:44 | Infectious Disease Progress Nt ---
Date of Service November 18, 2018 Assessment & Plan (1) Dry gangrene: will change to po augmentin suspect anaerobes as well. follow blood cultures, remain negative. will likely require prolonged course of augmentin. will need ongoing wound care post d/c. can follow with ID post D/C from hospit al. would give 4 weeks abx, can extend duration if needed on outpt basis, ok for d/c when otherwise stable. (2) Osteomyelitis of right foot: Subjective pt seen in followup, post op distal amp, tolerated well. wound culture growing pansensitive E. faecalis. afebrile. on zosyn, tolerating well. Review of Systems Review of Systems: All systems reviewed & are unremarkable except as noted in HPI & below Physical Exam Constitutional: WD/WN, vitals as above Eyes: PERRL, conjunctivae normal, anicteric sclerae ENMT: external ear and nose normal, oropharynx normal Neck: normal visual inspection Respiratory: normal respiratory effort, lungs clear to auscultation Cardiovascular: RRR, no murmur, no edema Gastrointestinal (Abdomen): normal bowel sounds, soft, nontender, no hepatosplenomegaly Musculoskeletal: no cyanosis or clubbing, extremities motor strength 5/5 Skin: no rashes, warm and dry Psychiatric: A+Ox3, euthymic affect Results & Data Vital Signs (Past 12 Hours) Vital Signs Temp Pulse Pulse Pulse Resp BP Pulse Ox 11/18/18 08:00 37.3 C 85 16 113/71 94 11/18/18 04:00 37.4 C 81 18 149/61 H 94 11/18/18 00:00 86 11/17/18 23:45 37.1 C 83 18 154/63 H 96 Laboratory Results Microbiology 11/13/18 21:44 Foot,Right Gram Stain - Final 11/13/18 21:44 Foot,Right Wound Culture - Final Enterococcus faecalis Coag negative Staphylococcus 11/13/18 16:29 Blood Aerobic Blood Culture - Preliminary No growth in Aerobic bottle after 48 hours. 11/13/18 16:29 Blood Anaerobic Blood Culture - Preliminary No growth in Anaerobic bottle after 48 hours. 11/13/18 16:42 Blood Aerobic Blood Culture - Preliminary No growth in Aerobic bottle after 48 hours. 11/13/18 16:42 Blood Anaerobic Blood Culture - Preliminary No growth in Anaerobic bottle after 48 hours. PG Care Time/CCT Total # of Minutes Spent Total Time Spent with Patient: Total time spent is greater than 50% in coordination of care (as documented) at patient's floor/unit and/or counseling patient:
--- NOTE | 2018-11-18 14:31 | Orthopedic Progress Note ---
Date of Service November 18, 2018 Assessment & Plan (1) Osteomyelitis of right foot: s/p right great toe partial amputation and I & D, POD #2. Per ID: on augmentin PT/OT Dressing change today by me. Subjective pt seen in followup, post op distal right gr toe amp, tolerated well. wound culture growing pansensitive E. faecalis. afebrile. POD #2, doing well. Physical Exam Physical Exam: Right great toe incision/ sutures c/d/i, mild erythema, no drainage. Results & Data Vital Signs (Past 12 Hours) Vital Signs Temp Pulse Pulse Pulse Resp BP Pulse Ox 11/18/18 12:00 37.1 C 68 20 150/70 H 97 11/18/18 10:00 79 11/18/18 08:00 37.3 C 85 16 113/71 94 11/18/18 04:00 37.4 C 81 18 149/61 H 94
--- NOTE | 2018-11-18 15:40 | Hospitalist Progress Note ---
Date of Service November 18, 2018 Assessment & Plan (1) Ulcer of right great toe due to diabetes mellitus: (2) Dry gangrene: Patient is a 73 yr male with H/O Neuroendocrine tumor of pancreas with mets S/P chemoembolization, CKD stage IV, diastolic CHF, DM II, hyperparathyroidism and other problems presents with generalized weakness, generalized pain, nausea, chills, right toe ulcer. Right great toe dry gangrenous ulcer Right foot osteomyelitis --Foot MRI:Findings are suspicious for osteomyelitis involving the distal tuft of the 1st distal phalanx. This corresponds to today's radiographic findings. An ulceration is noted in the 1st toe with evidence of surrounding cellulitis. There is no evidence of organized fluid collection. --Blood Cx:No growth to date --Wound Culture: S Enterococcus faecalis, coagulase negative staph S/P Right Great Toe Distal Phalanx Amputation and I & D POD # 2 continue IV Daptomycin, Zosyn Day #4>> Transitioned to Zosyn Day #5>>Augmentin--needs prolonged course Appreciate ID/Orthopedics Input Continue wound care PT/OT eval--Heel touch bearing Right LE Needs FU with Ortho/ID/Wound Center upon discharge (3) Generalized pain: Likely secondary to above Continue management as above (4) IDDM (insulin dependent diabetes mellitus): Last A1C 7.6 Lantus/humalog as outpt continue lantus/novolog as per protocol monitor BGs (5) Diastolic heart failure: Appears euvolemic continue torsemide Monitor volume status (6) Hypertension: BP stable Resume amlodipine AM Monitor (7) HLD (hyperlipidemia): On statin Resume upon discharge (8) Hyperparathyroidism: continue calcitriol (9) Neuroendocrine carcinoma of pancreas: Metastatic neuroendocrine carcinoma of the pancreas S/P chemoembolization Recent PET scan revealed increased size to tumor Follows with Dr. Huynh [facility] [place] (10) Depression: continue prozac (11) CKD (chronic kidney disease), stage IV: DHIRAJ on CKD IV Baseline cr 2.8 Cr: 3.1 today Monitor renal function continue calcitriol, sevelamer Follows Nephrology Dr. Dawn Torsemide held Gentle IV fluids (12) Anemia: Anemia of chronic disease Receives q2 week procrit; however recently H/H has remained above goal therefore has not received since 09/11 monitor CBC (13) DVT prophylaxis: Heparin SQ Code Status Full Code Disposition: PT/OT Follows with PCP Deedee Perkins PA-C Subjective Patient is seen and examined at bedside Complains of foot pain at surgical site Very poor appetite as per RN Feels tired/generalized weakness Denies chest pain, shortness of breath, dizziness, abdominal pain Had dressing change today Will request PT/OT eval today Review of Systems Review of Systems: All systems reviewed & are unremarkable except as noted in HPI & below Physical Exam Physical Exam: Physical Exam: Vitals signs as noted above General Appearance:Chronic ill appearing, no apparent distress Head: normocephalic, Atraumatic Eyes: normal inspection, EOMI Neck: supple, Trachea midline Respiratory/Chest: Normal breath sounds, CTA Cardiovascular: S1, S2, + systolic murmur Abdomen/GI:Soft, Non tender, Bowel sounds present Extremities/Musculoskelatal:normal inspection, right foot in surgical dressing Neurologic/Psych:AAOX3, grossly no focal neurological deficits Skin: normal color, warm Results & Data Vital Signs (Past 12 Hours) Vital Signs Temp Pulse Pulse Pulse Resp BP Pulse Ox 11/18/18 12:00 37.1 C 68 20 150/70 H 97 11/18/18 10:00 79 11/18/18 08:00 37.3 C 85 16 113/71 94 11/18/18 04:00 37.4 C 81 18 149/61 H 94 Laboratory Results Short CBC 11/18/18 Range/Units 05:43 Hgb 8.9 L (14.0-18.0) g/dL Hct 27.2 L (42-52) % BMP 11/18/18 05:43 Sodium 139 Potassium 4.3 Chloride 103 Carbon Dioxide 29 BUN 57 H Creatinine 3.12 H Glucose 116 H Calcium 8.5
[2018-11-18] MEDS: AMOXICILLIN/CLAVULANATE 875 MG TAB PO SCH (17:32)
[2018-11-18] MEDS: SENNA 8.6 MG TAB PO SCH (21:08)
[2018-11-19] MEDS: HEPARIN SOD 5,000 UNIT/0.5 ML VIAL SQ SCH ×3 (05:54→20:47)
[2018-11-19 06:05] LABS: Hematocrit (blood only) 26.7 % (42-52); Hemoglobin 9.1 g/dL (14.0-18.0)
[2018-11-19 06:46] LABS: Creatinine Clr Calc Pharmacy 25.8 ml/min; Est GFR (African American) 22.5; Est GFR (Non-African American) 19.4
[2018-11-19] MEDS: SEVELAMER HCL 800 MG TABLET PO SCH ×3 (08:10→16:12)
[2018-11-19] MEDS: CALCITRIOL 0.25 MCG CAPSULE PO SCH (08:28)
[2018-11-19] MEDS: DOCUSATE SODIUM 100 MG CAP PO SCH ×2 (08:28→20:40)
[2018-11-19] MEDS: CHOLECALCIFEROL 1,000 UNITS TAB PO SCH (08:28)
[2018-11-19] MEDS: MULTIVITAMIN TAB PO SCH (08:28)
[2018-11-19] MEDS: FLUOXETINE HCL 20 MG CAP PO SCH (08:29)
[2018-11-19] MEDS: FLUTICASONE/SALMETEROL 250/50 (ADVAIR) 14 PUFF/1 INHALER INH SCH ×2 (08:30→20:40)
[2018-11-19] MEDS: INSULIN GLARGINE SOLOSTAR 100 UNITS/ML 3 ML PEN SQ SCH ×2 (08:30→21:48)
[2018-11-19] MEDS: AMOXICILLIN/CLAVULANATE 875 MG TAB PO SCH ×2 (08:30→16:11)
[2018-11-19] MEDS: GABAPENTIN 100 MG CAP PO SCH ×2 (08:30→20:41)
[2018-11-19] MEDS: INSULIN ASPART 100 UNITS/ML 3 ML PEN SC SCH ×4 (08:33→20:44)
[2018-11-19] MEDS: AMLODIPINE BESYLATE 5 MG TAB PO SCH (09:19)
[2018-11-19] MEDS: ALFUZOSIN HCL 10 MG TAB PO SCH (09:19)
[2018-11-19] MEDS: OXYCODONE/ACETAMINOPHEN 5mg/325mg TAB PO PRN (14:38)
--- NOTE | 2018-11-19 15:46 | Hospitalist Progress Note ---
Date of Service November 19, 2018 Assessment & Plan (1) Ulcer of right great toe due to diabetes mellitus: (2) Dry gangrene: Patient is a 73 yr male with H/O Neuroendocrine tumor of pancreas with mets S/P chemoembolization, CKD stage IV, diastolic CHF, DM II, hyperparathyroidism and other problems presents with generalized weakness, generalized pain, nausea, chills, right toe ulcer. Right great toe dry gangrenous ulcer Right foot osteomyelitis --Foot MRI:Findings are suspicious for osteomyelitis involving the distal tuft of the 1st distal phalanx. This corresponds to today's radiographic findings. An ulceration is noted in the 1st toe with evidence of surrounding cellulitis. There is no evidence of organized fluid collection. --Blood Cx:No growth to date --Wound Culture: S Enterococcus faecalis, coagulase negative staph --Deep Wound Culture: Gram positive Cocci S/P Right Great Toe Distal Phalanx Amputation and I & D POD #3 continue IV Daptomycin, Zosyn Day #4>> Transitioned to Zosyn Day #5>>Augmentin Day #2/28 Needs prolonged course of Augmentin--4 weeks duration Appreciate ID/Orthopedics Input Continue wound care PT/OT eval--Heel touch bearing Right LE: Needs Rehab placement Needs FU with Ortho/ID/Wound Center upon discharge Case management working on Placement (3) Generalized pain: Likely secondary to above Continue management as above (4) IDDM (insulin dependent diabetes mellitus): Last A1C 7.6 Lantus/humalog as outpt continue lantus/novolog as per protocol monitor BGs (5) Diastolic heart failure: Appears euvolemic continue torsemide Monitor volume status (6) Hypertension: BP stable Continue amlodipine Monitor (7) HLD (hyperlipidemia): On statin Resume upon discharge (8) Hyperparathyroidism: continue calcitriol (9) Neuroendocrine carcinoma of pancreas: Metastatic neuroendocrine carcinoma of the pancreas S/P chemoembolization Recent PET scan revealed increased size to tumor Follows with Dr. Huynh [facility] [place] (10) Depression: continue prozac (11) CKD (chronic kidney disease), stage IV: DHIRAJ on CKD IV Baseline cr 2.8 Cr: 3.0 today Monitor renal function continue calcitriol, sevelamer Follows Nephrology Dr. Dawn Continue to hold Torsemide today Received gentle IV fluids (12) Anemia: Anemia of chronic disease Receives q2 week procrit; however recently H/H has remained above goal therefore has not received since 09/11 monitor CBC (13) DVT prophylaxis: Heparin SQ Code Status Full Code Disposition: PT/OT Follows with PCP Deedee Perkins PA-C Subjective Patient is seen and examined at bedside Doing much better today Sitting in chair this morning foot pain at surgical site is controlled Discussed with Orthopedics today Denies chest pain, shortness of breath, dizziness, abdominal pain Needs Rehab placement Review of Systems Review of Systems: All systems reviewed & are unremarkable except as noted in HPI & below Physical Exam Physical Exam: Physical Exam: Vitals signs as noted above General Appearance:Chronic ill appearing, no apparent distress Head: normocephalic, Atraumatic Eyes: normal inspection, EOMI Neck: supple, Trachea midline Respiratory/Chest: Normal breath sounds, CTA Cardiovascular: S1, S2, + systolic murmur Abdomen/GI:Soft, Non tender, Bowel sounds present Extremities/Musculoskelatal:normal inspection, right foot in surgical dressing Neurologic/Psych:AAOX3, grossly no focal neurological deficits Skin: normal color, warm Results & Data Vital Signs (Past 12 Hours) Vital Signs Temp Pulse Pulse Resp BP Pulse Ox 11/19/18 12:00 36.4 C L 84 18 155/68 H 97 11/19/18 08:00 36.5 C 69 18 136/69 97 11/19/18 07:15 59 L 11/19/18 03:59 37.0 C 79 18 118/64 96 Laboratory Results Short CBC 11/19/18 Range/Units 05:23 Hgb 9.1 L (14.0-18.0) g/dL Hct 26.7 L (42-52) % BMP 11/19/18 05:23 Creatinine 3.07 H
[2018-11-19] MEDS: TRAMADOL HCL 50 MG TABLET PO PRN (19:08)
[2018-11-19] MEDS: SENNA 8.6 MG TAB PO SCH (20:45)
[2018-11-20] MEDS: HEPARIN SOD 5,000 UNIT/0.5 ML VIAL SQ SCH ×2 (06:28→14:12)
[2018-11-20 06:58] LABS: Hematocrit (blood only) 27.4 % (42-52); Hemoglobin 9.1 g/dL (14.0-18.0); Mean Corpuscular Hgb Conc 33.2 g/dL (32-36); Mean Corpuscular Volume 83.8 fL (80-100); Mean Platelet Volume 11.2 fL (7.4-10.4); Platelet Count 254 K/uL (130-400); RDW Coefficient of Variation 12.9 % (11.5-14.5); RDW Standard Deviation 39.5 fL (36.4-46.3); Red Blood Count 3.27 M/uL (4.7-6.1); White Blood Count 6.07 K/uL (4.8-10.8)
[2018-11-20 07:48] LABS: BUN Creatinine Ratio 24.8 (10-20); Calcium 8.7 mg/dl (8.5-10.1); Est GFR (African American) 23.6; Est GFR (Non-African American) 20.4; Potassium 4.4 mmol/L (3.5-5.1)
[2018-11-20] MEDS: INSULIN ASPART 100 UNITS/ML 3 ML PEN SC SCH ×2 (08:18→12:55)
[2018-11-20] MEDS: INSULIN GLARGINE SOLOSTAR 100 UNITS/ML 3 ML PEN SQ SCH (08:19)
[2018-11-20] MEDS: ALFUZOSIN HCL 10 MG TAB PO SCH (08:19)
[2018-11-20] MEDS: FLUOXETINE HCL 20 MG CAP PO SCH (08:19)
[2018-11-20] MEDS: CHOLECALCIFEROL 1,000 UNITS TAB PO SCH (08:20)
[2018-11-20] MEDS: AMOXICILLIN/CLAVULANATE 875 MG TAB PO SCH (08:20)
[2018-11-20] MEDS: FLUTICASONE/SALMETEROL 250/50 (ADVAIR) 14 PUFF/1 INHALER INH SCH (08:20)
[2018-11-20] MEDS: AMLODIPINE BESYLATE 5 MG TAB PO SCH (08:20)
[2018-11-20] MEDS: SEVELAMER HCL 800 MG TABLET PO SCH ×2 (08:21→12:57)
[2018-11-20] MEDS: MULTIVITAMIN TAB PO SCH (08:22)
[2018-11-20] MEDS: DOCUSATE SODIUM 100 MG CAP PO SCH (08:22)
[2018-11-20] MEDS: CALCITRIOL 0.25 MCG CAPSULE PO SCH (08:22)
[2018-11-20] MEDS: GABAPENTIN 100 MG CAP PO SCH (08:22)
[2018-11-20] MEDS ORDERED: INSULIN GLARGINE SOLOSTAR 100 UNITS/ML 3 ML PEN SQ SCH (09:00)
--- NOTE | 2018-11-20 09:47 | Discharge Summary ---
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 Patient states he overall does not feel well, has pain all over, has been sleeping more frequently, chills, nausea. He has ulcer to right great toe that he states his noticed on Sunday. Per patient felt ulcer was getting worse. Denies drainage from area or pain. Pt unable due feel feet given neuropathy. When asked why he came to the hospital he states, "my . "He denies any documented fever or sweats, weakness, dizziness, chest pain, palpitations, shortness breath at rest, LOCK, emesis, abdominal pain, change in bowel or urinary habits. Per outpatient provider notes he has lost 8 pounds since Sunday. He also recently received results of PET scan for neuroendocrine tumor. He [place] [facility] [place] states tumor has nearly doubled and recommends to restart chemoembolization. He has appointment 12/09/2018 for follow-up. He feels he is mostly compliant with his medications. Admission Exam Per Admitting Provider Gen: WD/WN, M, NAD, lying in bed, very flat affected, answers questions appropriately Head: Normocephalic, Atraumatic Eyes: Sclera normal, no conjunctival injection, PERRLA, EOMI ENT: Gross hearing intact, normal pharynx, mucous membranes moist Neck: supple, no adenopathy, No JVD, no bruit, Resp: Clear to auscultation b/l, no wheeze, rales, rhonchi. 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 Extremities: No edema bilaterally, venous stasis changes, R great toe distal area ulceration with necrosis, dry gangrene, surrounding great toe erythema Skin: warm, moist, no rash, negative turgor, cap refill < 2sec Neuro: Alert and oriented x 3, speech normal, very flat mood/affect, cran nerve 2-12 intact grossly : deferred Principal Diagnosis Toe Osteomyelitis Dry Gangrene IDDM Hyper PTH HLD DCHF HTN Discharge Exam ROS-No Headache, No Visual Changes, No Nausea, No Vomiting, No Fever, No Chills, No Neck Pain or Stiffness, No Chest Pain, No Palpitations, No SOB, No LOCK, No Cough, No Sputum, No Wheezing, No Abdominal Pain, No Diarrhea, No Hematemesis, No Hemoptysis, No Unexpected Weight Loss, No Flank pain, No Melena, No Royce tochezia, No Frequency, No Urgency, No Burning, No Hematuria, No Rashes, No Diaphoresis. Appetite is Normal Physical Exam Gen-AAO x 3, NAD, Afebrile Head-NCAT, EOMI, PERRLA, Anicteric Sclera, No Posterior Pharyngeal Erythema Neck-Supple, No JVD, No Thyromegaly, No Masses, No LAD, No Bruits Lungs-Clear to Auscultation Bilaterally, No Rales, No Rhonchi, No Wheezing, No Crepitus Chest-No S4, +S1, +S2, No S3, No Murmurs, No Rubs, No Gallops, No Ectopy Abdomen-Soft, Bowel Sounds Present, Non Tender, Non Distended, No Hepatomegaly, No Splenomegaly, No Palpable Masses, No Rebound, No Rigidity, No Guarding Musculoskeletal-Full Range of Motion Bilaterally, No CVAT Extremities-No Cyanosis, No Clubbing, No Edema. L Foot Wrapped c Boot in place Nuero-Cranial Nerves II-XII grossly intact, Motor WNL, DTRs WNL, Strength WNL, Non Focal Psych-Normal Mood Discharge Data Allergies Allergy/AdvReac Type Severity Reaction Status Date / Time Sulfa (Sulfonamide Allergy Mild RASH Verified 11/13/18 17:10 Antibiotics) NSAIDS (Non-Steroidal Allergy Unknown "NO Verified 11/13/18 17:10 Anti-Inflamma NSAIDS"due to kidney disease Consultations 11/13/18 18:27 ED Decision to Admit Stat 11/13/18 21:32 Consult Case Management - Discharge Planning Routine Consult Infectious Diseases Routine 11/14/18 14:51 Consult Orthopedic Surgery Routine 11/16/18 13:12 Consult Case Management - Discharge Planning Routine Procedures Performed Operation Date: 11/16/18 13:00 Actual Procedures p Right Great Toe Distal Phalynx Amputation; Irrigation and Debridement Right Great Toe(Right) - Cody Wiseman MD Current Diagnoses Other malignant neuroendocrine tumors (11/13/18) Anemia, unspecified (11/13/18) Type 2 diabetes mellitus with foot ulcer (11/13/18) Type 2 diabetes mellitus without complications (11/13/18) Hyperparathyroidism, unspecified (11/13/18) Hyperlipidemia, unspecified (11/13/18) Major depressive disorder, single episode, unspecified (11/13/18) Essential (primary) hypertension (11/13/18) Unspecified diastolic (congestive) heart failure (11/13/18) Gangrene, not elsewhere classified (11/13/18) Non-pressure chronic ulcer of other part of right foot with unspecified severity (11/13/18) Osteomyelitis, unspecified (11/13/18) Chronic kidney disease, stage 4 (severe) (11/13/18) Pain, unspecified (11/13/18) Encounter for other preprocedural examination (11/13/18) Encounter for prophylactic measures, unspecified (11/13/18) 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 (11/13/18) Allergies Sulfa (Sulfonamide Antibiotics) Allergy (Mild, Verified 11/13/18 17:10) RASH NSAIDS (Non-Steroidal Anti-Inflamma Allergy (Unknown, Verified 11/13/18 17:10) "NO NSAIDS"due to kidney disease Height/Weight/Isolation Height 5 ft 10 in Weight 98 kg Chemistry 11/19/18 11/20/18 05:23 06:24 Sodium 140 Potassium 4.4 Chloride 104 Carbon Dioxide 25 Anion Gap 11.0 BUN 73 H Creatinine 3.07 H 2.95 H Glucose 55 L Microbiology 11/18/18 12:50 Toe,Right Great Gram Stain - Final 11/18/18 12:50 Toe,Right Great Aerobic and Anaerobic Culture - Preliminary Gram positive cocci 11/13/18 16:42 Blood Aerobic Blood Culture - Final No growth in Aerobic bottle after 5 days. 11/13/18 16:42 Blood Anaerobic Blood Culture - Final No growth in Anaerobic bottle after 5 days. 11/13/18 16:29 Blood Aerobic Blood Culture - Final No growth in Aerobic bottle after 5 days. 11/13/18 16:29 Blood Anaerobic Blood Culture - Final No growth in Anaerobic bottle after 5 days. Ordered Studies 11/13/18 19:26 MR foot RT w/o con Routine Hospital Course (1) Ulcer of right great toe due to diabetes mellitus: (2) Dry gangrene: Patient is a 73 yr male with H/O Neuroendocrine tumor of pancreas with mets S/P chemoembolization, CKD stage IV, diastolic CHF, DM II, hyperparathyroidism and other problems presents with generalized weakness, generalized pain, nausea, chills, right toe ulcer. Right great toe dry gangrenous ulcer Right foot osteomyelitis --Foot MRI:Findings are suspicious for osteomyelitis involving the distal tuft of the 1st distal phalanx. This corresponds to today's radiographic findings. An ulceration is noted in the 1st toe with evidence of surrounding cellulitis. There is no evidence of organized fluid collection. --Blood Cx:No growth to date --Wound Culture: S Enterococcus faecalis, coagulase negative staph --Deep Wound Culture: Gram positive Cocci S/P Right Great Toe Distal Phalanx Amputation and I & D POD #4 continue Augmentin Day #3/28 Needs prolonged course of Augmentin--4 weeks duration Continue wound care PT/OT eval--Heel touch bearing Right LE: Rehab placement today Needs FU with Ortho/ID/Wound Center upon discharge (3) Generalized pain: Likely secondary to above Ultram and Tylenol (4) IDDM (insulin dependent diabetes mellitus): Last A1C 7.6 Lantus/humalog as outpt continue lantus/novolog as per protocol monitor BGs (5) Diastolic heart failure: Appears euvolemic continue torsemide Monitor volume status (6) Hypertension: BP stable Continue amlodipine Monitor (7) HLD (hyperlipidemia): On statin Resume upon discharge (8) Hyperparathyroidism: continue calcitriol (9) Neuroendocrine carcinoma of pancreas: Metastatic neuroendocrine carcinoma of the pancreas S/P chemoembolization Recent PET scan revealed increased size to tumor [place] [facility] (10) Depression: continue prozac (11) CKD (chronic kidney disease), stage IV: DHIRAJ on CKD IV Baseline cr 2.8 Monitor renal function continue calcitriol, sevelamer Follows Nephrology Dr. Dawn (12) Anemia: Anemia of chronic disease Receives q2 week procrit; however recently H/H has remained above goal therefore has not received since 09/11 monitor CBC (13) DVT prophylaxis: Heparin SQ Code Status Full Code Disposition: ARF today PT/OT Follows with PCP Deedee Perkins PA-C f/u c ortho Total Time Total Time Spent Total Time Spent (In Minutes): 45 mins Total Time Includes: Examination of the Patient, Discharge Planning, Medication Reconciliation and Communication With Other Providers Discharge Plan Discharge Items Patient Disposition: Transfer Inpatient Rehab Fac Reason For Visit: ILL FEELING, R GREAT TOE INFECTION Discharge Diagnosis: Toe Osteomyelitis Dry Gangrene IDDM Hyper PTH HLD DCHF HTN Condition: Good Discharge Goals: Decrease discomfort and Therapeutic intervention Activity: As commented below Activity Comment: WB on R heel Lifting: Gradually increase as tolerated Bathing: Keep incision dry Sexual Activity: When tolerated Exercise/Sports: None Exercise Comment: See below Driving/Machine Use Comment: See below Weightbearing: Left weightbearing and Right non-weightbearing Weightbearing Comment: See below Non-emergency contact: Primary Care Provider and Surgeon Call non-emergency contact if: you have any medication questions and your wound has increased drainage Follow-up/Referrals: Maggie Rebollar DO [Physician] - (3 weeks) Deedee Perkins PA-C [Primary Care Provider] - Cody Wiseman MD [Surgeon] - (2-3 weeks) Diet: Carb Consistent or DM2 and Heart Healthy Addtl Provider Instructions: ACTIVITY RECOMMENDATIONS: Limitations: Heel weight bearing only if able to tolerate. SPECIAL CARE INSTRUCTIONS: * Some drainage onto the dressing is normal and is no cause for alarm. * Some swelling is natural especially after walking. * When resting, keep your foot elevated above the level of your heart. * Call [facility] if you notice: -Increased drainage -Fever over 101 degrees F -Severe constant pain BANDAGE: * Change the bandage daily until seen back in the office. * Keep bandage/cast dry at all times. FOLLOW UP VISIT WITH DR. WISEMAN If appointment is not already scheduled: Please call [facility] after you get home today to schedule a follow-up appointment for [address] Wiseman at . Follow up in Wound Center Follow up with ID Dr Rebollar Stop Augmentin in 25 days Prescriptions: New bisacodyl [Laxative (bisacodyl)] 10 mg Suppository 10 mg TN DAILY PRN (Reason: constipation) Qty: 30 RF: 0 amoxicillin-pot clavulanate 875-125 mg Tablet 1 tab PO BIDM Qty: 20 RF: 0 heparin, porcine (PF) 5,000 unit/0.5 mL Syringe 5,000 unit subcut Q8 Qty: 30 RF: 0 magnesium hydroxide [Milk of Magnesia] 400 mg/5 mL Suspension 30 ml PO Q6H PRN (Reason: constipation) Qty: 355 RF: 0 docusate sodium 100 mg Capsule 100 mg PO BID Qty: 30 RF: 0 tramadol 50 mg Tablet 50 mg PO Q8H PRN (Reason: pain) Qty: 30 RF: 0 Continued levalbuterol HCl 0.63 mg/3 mL Solution For Nebulization 0.63 mg INHALATION DIRECTED PRN (Reason: Shortness Of Breath) RF: 0 simvastatin 20 mg tablet 20 mg PO HS RF: 0 ranitidine HCl 150 mg tablet 150 mg PO HS RF: 0 Glucagon Emergency Kit (human) 1 mg Recon Soln 1 mg subcut DIRECTED PRN (Reason: Hypoglycemia) RF: 0 epoetin sabrina 10,000 unit/mL Solution subcut .[id number] RF: 0 Lantus Solostar U-100 Insulin 100 unit/mL (3 mL) insulin pen 60 unit subcut QPM RF: 0 sevelamer carbonate 800 mg tablet 2 tab PO TIDM RF: 0 Sandostatin LAR [place] 10 mg Suspension,Extended Rel Recon IM DIRECTED RF: 0 acetaminophen 325 mg Tablet 650 mg PO Q4H PRN (Reason: pain/ fever) RF: 0 calcitriol 0.25 mcg capsule 0.25 mcg PO QAM RF: 0 ProAir RespiClick 90 mcg/actuation Aerosol Powdr Breath Activated 2 inh inhalation Q4 PRN (Reason: Shortness Of Breath) RF: 0 ergocalciferol (vitamin D2) 2,000 unit Tablet 2,000 unit PO DAILY RF: 0 fluoxetine 20 mg Capsule 20 mg PO DAILY RF: 0 amlodipine 5 mg tablet 2.5 mg PO DAILY RF: 0 gabapentin 100 mg capsule 100 mg PO BID RF: 0 alfuzosin 10 mg tablet extended release 24 hr 10 mg PO DAILY RF: 0 fluticasone propion-salmeterol [Advair Diskus] 250-50 mcg/dose Blister With Device 1 inh INHALATION Q12H RF: 0 ipratropium-albuterol 0.5 mg-3 mg(2.5 mg base)/3 mL Solution For Nebulization 3 ml INHALATION BID PRN (Reason: sob/wheezing) RF: 0 torsemide 20 mg Tablet 40 mg PO DAILY RF: 0 tramadol 50 mg Tablet 50 mg PO Q12H RF: 0 albuterol sulfate 90 mcg/actuation Hfa Aerosol Inhaler 2 puff INHALATION Q6H PRN (Reason: Shortness Of Breath Or Wheezing) RF: 0 No Action insulin lispro [Humalog KwikPen Insulin] 100 unit/mL Insulin Pen SUBCUT DIRECTED RF: 0 Stand-Alone Forms: [facility] Discharge Orders: Discharge Order (Routine); Ordered 11/20/18 Ordered By: Souleymane Wong Skilled Items Patient informed of condition?: Yes DNR: No Discharge Level of Care: Acute rehab Communicable Disease: No Discharge Prognosis: Stable Admission Data Admit Date/Time: 11/13/18 18:59 Attending Provider: Souleymane Wong Admit Provider: Dillon Aburto Primary Care Provider: Deedee Perkins Other Providers: Dillon Aburto ; Maggie Rebollar ; oJsse Rose Service: Telemetry Medical
[2018-11-20] MEDS ORDERED: INSULIN GLARGINE SOLOSTAR 100 UNITS/ML 3 ML PEN SC SCH (21:00)
== END 2018-11-20 13:55 | DRG 256 ==
LOC: ED 15:05 → 2N 18:59 → SUATTDRO 18:59 → 2N 20:02

== ENCOUNTER 2019-01-24 17:08 | Inpatient (IN) ==
--- NOTE | 2019-01-24 18:25 | Emergency Department Note ---
Entered by Sade Santos acting as a scribe for Abdirizak Osorio DO History of Present Illness General Chief complaint: Infection, Wound Stated complaint: INFECTED TOE Time Seen by Provider: 01/24/19 17:46 Source: patient and family ( ) Limitations: no limitations History of Present Illness Provider complaint: Toe infection Onset (ago): day(s) 5 Location: right (toe) Pain Consistency: + constant Quality: + constant Associated symptoms: + fever/chills (chills ) and + other (Positive: infected 2nd digit of the right foot, open and red toe tip, feels cold); no nausea/vomiting The patient is a 73 year old male with past medical history of asthma, kidney failure, kidney stones, cataracts, liver cancer, pancreas cancer, HLD, who presents to the ED with complaints of constant infected 2nd digit of the right foot that started 5 days ago. The patient reports the bottom of his toe nail was black on Sunday and went to the doctor on Sunday. He notes he was placed on Keflex and is unable to get an MRI until February 11. The reports she took the bandage off the patients foot today and the tip of his toe was red and open. The patient states he feels cold and has chills. He denies nausea or vomiting. Home Medications Home Medications Medication Instructions Recorded Confirmed Type Lantus Solostar U-100 Insulin 15 unit SUBCUT QPM 07/22/18 01/24/19 History calcitriol 0.25 mcg PO QAM 07/22/18 01/24/19 History ergocalciferol (vitamin D2) 2,000 unit PO QAM 07/22/18 01/24/19 History fluoxetine 20 mg PO QAM 07/22/18 01/24/19 History ranitidine HCl 150 mg PO HS 07/22/18 01/24/19 History sevelamer carbonate 800 mg PO TIDM 07/22/18 01/24/19 History simvastatin 20 mg PO HS 07/22/18 01/24/19 History alfuzosin 10 mg PO PM 11/13/18 01/24/19 History amlodipine 2.5 mg PO QAM 11/13/18 01/24/19 History albuterol sulfate 2 puff INHALATION Q6H PRN 11/14/18 01/24/19 History acetaminophen [Tylenol Extra 500 mg PO Q6H PRN 01/24/19 01/24/19 History Strength] allopurinol 100 mg PO QAM 01/24/19 01/24/19 History cephalexin 500 mg PO Q6H 01/24/19 01/24/19 History docusate sodium 100 mg PO BID PRN 01/24/19 01/24/19 History fluticasone propion-salmeterol 1 inh INHALATION BID 01/24/19 01/24/19 History [Advair Diskus] gabapentin 400 mg PO BID 01/24/19 01/24/19 History insulin lispro [Humalog KwikPen 0 unit SUBCUT TIDM 01/24/19 01/24/19 History Insulin] sodium polystyrene sulfon-sorb 60 ml PO QAM 01/24/19 01/24/19 History [SPS (with sorbitol)] torsemide 20 mg PO BID 01/24/19 01/24/19 History Allergies Allergy/AdvReac Type Severity Reaction Status Date / Time Sulfa (Sulfonamide Allergy Mild RASH Verified 01/24/19 19:28 Antibiotics) NSAIDS (Non-Steroidal Allergy Unknown "NO Verified 01/24/19 19:28 Anti-Inflamma NSAIDS"due to kidney disease Past Med/Surg History Medical History IDDM (insulin dependent diabetes mellitus) (Chronic) Hyperparathyroidism (Chronic) HLD (hyperlipidemia) (Chronic) 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 Diastolic heart failure (Chronic) Liver cancer (Chronic) Pancreas cancer (Chronic) Hypertension (Chronic) Depression (Chronic) CKD (chronic kidney disease), stage IV (Chronic) Chronic neck pain (Chronic) Asthma (Chronic) Anemia (Chronic) Kidney stones Surgical History S/P foot surgery (Chronic) bone spur removed S/P knee surgery (Chronic) S/P lumbar spine operation (Chronic) H/O cervical spine surgery (Chronic) Family History Other Breast cancer Diabetes No pertinent family history Social History Preferred Language: Yoruba Communication Ability: Effective Visual Impairment: No Limitations Hearing Ability: Normal Machine Stacker Required: No Beliefs That Will Affect Care: None marital status: Current Living Situation: Spouse Other Information That Helps Us Care for You: No Feels Safe at Home: Yes Safety Concerns: Feels Safe At This Time Smoking Status: Former smoker Tobacco Type: cigarettes, pipe and cigars ; Smoking End Date: years ago ; Hx Alcohol Use: No Hx Substance Use: No Review of Systems See HPI for pertinent positives & negatives. and A total of 10 systems reviewed and were otherwise negative Physical Exam Vital Signs Vital Signs - 24 hr 01/24/19 17:28 01/24/19 19:27 Temperature 36.9 C Temperature Source Oral Sepsis Recent Fever Within 48 Hours No Sepsis New/Unexplained Change in Mental Status No Sepsis Action Taken by Nursing No Action Required Pulse Rate 92 H Pulse Rate [Apical] 84 Respiratory Rate 20 20 Respiratory Effort / Characteristics Non-Labored Spontaneous Respiratory Depth Normal Blood Pressure 116/61 Blood Pressure [Right Arm] 159/63 H Blood Pressure Mean 79 Blood Pressure Mean [Right Arm] 95 Blood Pressure Position Sitting Pulse Oximetry 98 98 Oxygen Delivery Method Room Air GENERAL: Patient is awake alert in no acute distress patient is resting comfortably and showing no signs of anxiety EYES: The conjunctivae are clear. The pupils are round and reactive. EARS, NOSE, MOUTH AND THROAT: The nose is without any evidence of any deformity. Mucous membranes are moist tongue is midline NECK: The neck is nontender and supple. RESPIRATORY: Normal respiratory effort is noted there is no evidence of wheezing rhonchi or rales CARDIOVASCULAR: Regular rate and rhythm noted there no murmurs rubs or gallops normal S1 normal S2 GASTROINTESTINAL: The abdomen is soft. Bowel sounds are present in all quadrant s. Abdomen is nontender MUSCULOSKELETAL/EXTREMITIES: There is no evidence of gross deformity full range of motion is noted in the hips and shoulders SKIN: There is no obvious evidence of any rash. Pedal edema was noted bilaterally. Skin was pale but warm. There was erythema noted to the right sec ond toe. There was drainage noted underneath the nailbed. NEUROLOGIC: Patient is awake alert and oriented x3 strength is symmetric patellar reflexes are 2+ bilaterally Course 1747: The patient was evaluated in room B4B. A complete history and physical exam was performed. 2013: Upon reevaluation, the patient is resting comfortably. I discussed laboratory and radiographic results with him and the family. The patient verbalized agreement of the treatment plan. The patient will be evaluated for further management and care. 2022: I put a call out for [facility]. 2027: I discussed the patient's case with Dr. Forrest, [facility] Hospitalist. He will evaluate the patient for further management. Administered Medications Gabapentin (Neurontin) 400 mg PO BID JOSSUE Stop: 02/23/19 21:44 Last Admin: 01/24/19 22:42 Dose: 400 mg Documented by: [id number] Insulin Aspart (Novolog Flexpen) 0 units SC ACHS JOSSUE Stop: 02/23/19 21:59 Last Admin: 01/24/19 23:00 Dose: Not Given Documented by: [id number] Cosigned by: [id number] Ranitidine HCl (Zantac) 150 mg PO HS JOSSUE Stop: 02/23/19 21:44 Last Admin: 01/24/19 22:43 Dose: 150 mg Documented by: [id number] Fluticasone/Salmeterol (Advair Diskus 250/50) 1 puffs INH BID JOSSUE Stop: 02/23/19 21:44 Last Admin: 01/24/19 22:42 Dose: 1 puffs Documented by: [id number] Simvastatin (Zocor) 20 mg PO HS JOSSUE Stop: 02/23/19 21:44 Last Admin: 01/24/19 22:43 Dose: 20 mg Documented by: [id number] Discontinued Medications Heparin Sodium (Porcine) (Heparin Sodium (Porcine)) 5,000 units SQ Q8 JOSSUE Stop: 02/23/19 21:59 Last Admin: 01/24/19 22:57 Dose: Not Given Documented by: [id number] Piperacillin Sod/Tazobactam Sod (Zosyn) 4.5 gm in 120 mls @ 240 mls/hr IV NOW ONE Stop: 01/24/19 20:47 Last Infusion: 01/24/19 21:56 Dose: 0 mls/hr Documented by: [id number] Admin: 01/24/19 20:32 Dose: 240 mls/hr Documented by: [id number] Sodium Chloride (Nss) 500 mls @ 999 mls/hr IV .Q31M ONE Stop: 01/24/19 20:48 Last Infusion: 01/24/19 21:56 Dose: 0 mls/hr Documented by: [id number] Admin: 01/24/19 20:32 Dose: 999 mls/hr Documented by: [id number] Insulin Glargine (Lantus Solostar Pen) 15 units SQ NOW ONE Stop: 01/24/19 22:01 Last Admin: 01/24/19 22:47 Dose: 15 units Documented by: [id number] Cosigned by: [id number] Medical Decision Making Differential Diagnosis Differential diagnosis: Etiologies such as cellulitis, abscess, osteomyelitis, MRSA infection, DVT, necrotizing fasciitis, dermatitis, drug eruption, as well as others were enter tained. Medical Records Attestation: I reviewed the patient's medical records. Home Medications Current Medication List: was personally reviewed by me Laboratory Data Attestation: I reviewed the patient's lab results. Result diagrams: 01/24/19 18:46 01/24/19 18:46 Lab Results 01/24/19 01/24/19 01/24/19 Range/Units 18:46 18:46 18:46 WBC 6.46 (4.8-10.8) K/uL RBC 3.04 L (4.7-6.1) M/uL Hgb 8.6 L (14.0-18.0) g/dL Hct 26.4 L (42-52) % MCV 86.8 (80-100) fL MCH 28.3 (25-34) pg MCHC 32.6 (32-36) g/dL RDW Std Deviation 45.8 (36.4-46.3) fL RDW Coeff of José Miguel 14.6 H (11.5-14.5) % Plt Count 272 (130-400) K/uL MPV 11.7 H (7.4-10.4) fL Immature Gran % (Auto) 0.2 % Neut % (Auto) 60.9 % Lymph % (Auto) 24.0 % [place] % (Auto) 10.1 % Eos % (Auto) 4.2 % Baso % (Auto) 0.6 % Immature Gran # (Auto) 0.01 (0.00-0.02) K/uL Neut # (Auto) 3.94 (1.4-6.5) K/uL Lymph # (Auto) 1.55 (1.2-3.4) K/uL [place] # (Auto) 0.65 H (0.11-0.59) K/uL Eos # (Auto) 0.27 (0-0.5) K/uL Baso # (Auto) 0.04 (0-0.2) K/uL ESR > 90 H (0-14) mm/hr Sodium (136-145) mmol/L Potassium (3.5-5.1) mmol/L Chloride (98-107) mmol/L Carbon Dioxide (21-32) mmol/L Anion Gap (3-11) BUN (7-18) mg/dl Creatinine (0.6-1.4) mg/dl Est Cr Clr Drug Dosing ml/min Est GFR ( Amer) Est GFR (Non-Af Amer) BUN/Creatinine Ratio (10-20) Glucose (70-99) mg/dl Calcium (8.5-10.1) mg/dl Total Bilirubin (0.2-1) mg/dl AST (15-37) U/L ALT (12-78) U/L Alkaline Phosphatase (45-117) U/L C-Reactive Protein (0-0.29) mg/dl Total Protein (6.4-8.2) gm/dl Albumin (3.4-5.0) gm/dl Globulin (2.5-4.0) gm/dl Albumin/Globulin Ratio (0.9-2) Beta-Hydroxybutyric Acd (0.2-2.81) mg/dl Procalcitonin 0.08 (0-0.5) ng/ml 01/24/19 Range/Units 18:46 WBC (4.8-10.8) K/uL RBC (4.7-6.1) M/uL Hgb (14.0-18.0) g/dL Hct (42-52) % MCV (80-100) fL MCH (25-34) pg MCHC (32-36) g/dL RDW Std Deviation (36.4-46.3) fL RDW Coeff of José Miguel (11.5-14.5) % Plt Count (130-400) K/uL MPV (7.4-10.4) fL Immature Gran % (Auto) % Neut % (Auto) % Lymph % (Auto) % [place] % (Auto) % Eos % (Auto) % Baso % (Auto) % Immature Gran # (Auto) (0.00-0.02) K/uL Neut # (Auto) (1.4-6.5) K/uL Lymph # (Auto) (1.2-3.4) K/uL [place] # (Auto) (0.11-0.59) K/uL Eos # (Auto) (0-0.5) K/uL Baso # (Auto) (0-0.2) K/uL ESR (0-14) mm/hr Sodium 140 (136-145) mmol/L Potassium 4.1 (3.5-5.1) mmol/L Chloride 105 (98-107) mmol/L Carbon Dioxide 29 (21-32) mmol/L Anion Gap 6.0 (3-11) BUN 45 H (7-18) mg/dl Creatinine 1.99 H (0.6-1.4) mg/dl Est Cr Clr Drug Dosing 39.4 ml/min Est GFR ( Amer) 38.0 Est GFR (Non-Af Amer) 32.8 BUN/Creatinine Ratio 22.5 H (10-20) Glucose 322 H* (70-99) mg/dl Calcium 8.3 L (8.5-10.1) mg/dl Total Bilirubin 0.2 (0.2-1) mg/dl AST 15 (15-37) U/L ALT 19 (12-78) U/L Alkaline Phosphatase 144 H (45-117) U/L C-Reactive Protein 5.01 H (0-0.29) mg/dl Total Protein 6.9 (6.4-8.2) gm/dl Albumin 2.4 L (3.4-5.0) gm/dl Globulin 4.5 H (2.5-4.0) gm/dl Albumin/Globulin Ratio 0.5 L (0.9-2) Beta-Hydroxybutyric Acd 1.06 (0.2-2.81) mg/dl Procalcitonin (0-0.5) ng/ml Imaging Data Radiologist's Impression: Radiology results as stated below per my review and the radiologist's interpretation: XR foot RT min 3V routine CLINICAL HISTORY: infection 2nd toe collection COMPARISON: 11/14/2018 DISCUSSION: Interval amputation distal phalanx of the great toe. Deformity proximal phalanx fourth toe felt to be secondary to old trauma. The toes are held in flexion. Generalized degenerative change. Moderate soft tissue edema IMPRESSION: 1. Operative changes consistent with resection distal phalanx great toe as well as a small component ductal aspect of the proximal phalanx. No additional lytic or blastic process. Superimposed degenerative change. The above report was generated using voice recognition software. It may contain grammatical, syntax or spelling errors. Electronically signed by: Oswald Geiger M.D. 01/24/2019 6:24 PM Blood Pressure Blood Pressure Findings: Elevated blood pressure Blood Pressure Disposition: further management by hospitalist MDM Narrative The patient is a 73-year-old male who presented to the emergency department for an evaluation of right foot pain and swelling. The patient is a history of infection in his foot in the past. He has a history of diabetes as well as peripheral neuropathy. He was seen by his orthopedic group and was placed on oral antibiotic. Symptoms continued to worsen he was noted to have drainage by his significant other. He presents the emergency department today with a history and physical exam that I feel is consistent with an underlying celluliti s of the right second toe. Given the patient's anemia as well as hyperglycemia as well as his other risk factors I do feel he would be better managed as an inpatient. I discussed the patient's laboratory and radiographic studies with him. I discussed his case with the on-call [facility] hospitalist group. They have agreed to evaluate the patient in the emergency department for further management disposition. The patient was started on IV antibiotic's. Cultures were sent of the drainage. Impression & Plan Cellulitis of right foot Discharge Plan Visit Data *Final* Discharge Date/Time: 01/24/19 21:19 Chief Complaint: Infection, Wound Stated Complaint: INFECTED TOE ED Provider: Abdirizak Osorio Discharge Problem: Cellulitis of right foot Patient Disposition: Admitted As Inpatient Discharge Instructions Interventions: ED Discharge Assessment Last Done: 01/24/19 21:19 The scribe's documentation has been prepared under my direction and personally reviewed by me in its entirety. I confirm that the note above accurately reflects all work, treatment, procedures, and medical decision making performed by me.
[2019-01-24 19:09] LABS: Basophils # (auto) 0.04 K/uL (0-0.2); Basophils % (auto) 0.6 %; Eosinophils # (auto) 0.27 K/uL (0-0.5); Eosinophils % (auto) 4.2 %; Hematocrit (blood only) 26.4 % (42-52); Hemoglobin 8.6 g/dL (14.0-18.0); Immature Granulocytes # (auto) 0.01 K/uL (0.00-0.02); Immature Granulocytes % (auto) 0.2 %; Lymphocytes # (auto) 1.55 K/uL (1.2-3.4); Mean Corpuscular Hemoglobin 28.3 pg (25-34); Mean Corpuscular Hgb Conc 32.6 g/dL (32-36); Mean Corpuscular Volume 86.8 fL (80-100); Mean Platelet Volume 11.7 fL (7.4-10.4); Monocytes # (auto) 0.65 K/uL (0.11-0.59); Monocytes % (auto) 10.1 %; Neutrophils # (auto) 3.94 K/uL (1.4-6.5); Neutrophils % (auto) 60.9 %; Platelet Count 272 K/uL (130-400); RDW Coefficient of Variation 14.6 % (11.5-14.5); RDW Standard Deviation 45.8 fL (36.4-46.3); Red Blood Count 3.04 M/uL (4.7-6.1); White Blood Count 6.46 K/uL (4.8-10.8)
[2019-01-24 19:46] LABS: Albumin Level 2.4 gm/dl (3.4-5.0); BUN Creatinine Ratio 22.5 (10-20); Bilirubin,Total 0.2 mg/dl (0.2-1); Calcium 8.3 mg/dl (8.5-10.1); Creatinine Clr Calc Pharmacy 39.4 ml/min; Est GFR (Non-African American) 32.8; Globulin 4.5 gm/dl (2.5-4.0); Potassium 4.1 mmol/L (3.5-5.1); Total Protein 6.9 gm/dl (6.4-8.2)
[2019-01-24 20:03] LABS: Beta-Hydroxybutyrate 1.06 mg/dl (0.2-2.81)
[2019-01-24] MEDS ORDERED: PIPERACILLIN/TAZOBACTAM 4.5 GM/120 ML BAG IV ONE (20:18)
[2019-01-24] MEDS ORDERED: SODIUM CHLORIDE 0.9% 500 ML IV ONE (20:18)
[2019-01-24] MEDS ORDERED: PIPERACILL/TAZOBAC CONSULT ACTIVE PRN ×2 (20:18→21:45)
[2019-01-24] MEDS ORDERED: GLUCAGON FOR INJ 1 MG VIAL SQ PRN (20:40)
[2019-01-24] MEDS ORDERED: DEXTROSE 50% 50 ML SYRINGE IV PRN (20:40)
[2019-01-24] MEDS ORDERED: GLUCOSE 40% GEL 15 GM TUBE PO PRN (20:40)
[2019-01-24] MEDS ORDERED: CARBOHYDRATES FOR HYPOGLYCEMIA PO PRN (20:40)
[2019-01-24] MEDS ORDERED: GLUCOSE 10 TABS/TUBE PO PRN (20:40)
[2019-01-24] MEDS ORDERED: ONDANSETRON INJ 2 MG/ML 2 ML VIAL IV PRN (20:40)
--- NOTE | 2019-01-24 20:58 | History & Physical Report ---
Date of Service January 24, 2019 Assessment & Plan (1) Diabetic ulcer of toe of right foot associated with type 2 diabetes mellitus: This is a 73-year-old male with a PMH of neuroendocrine tumor of pancreas with mets status post chemoembolization, IDDM 2, CKD IV, hypertension, hyperlipidemia, diastolic heart failure, asthma and other medical problems listed below who presents with right second toe foot ulcer x 5 days. -Started on Keflex by [facility] ortho 3 days ago for ulcer. Became red and warm to touch today with blister on distal aspect -Afebrile, no leukocytosis, ESR greater than 90 -R foot XR with operative changes consistent with resection distal phalanx great toe as well as a small component ductal aspect of the proximal phalanx. No additional lytic or blastic process. 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 Wound culture pending -Routine ortho consult for tomorrow (2) IDDM (insulin dependent diabetes mellitus): A1c of 7.8 in Dec 2018 -Glycemic coverage recently adjusted by utility porter at [place] due to neuroendocrine carcinoma of pancreas -Glycemic consult placed -BSG AC HS (3) Neuroendocrine carcinoma of pancreas: With mets to liver s/p chemoembolization in past -Follows with Dr. Huynh [facility] (4) CKD (chronic kidney disease), stage IV: Creatinine 1.99 at baseline -Follows with Dr. Clancy in clinic -Continue calcitriol, sevelamer (5) Anemia: Hgb of 8.6 (baseline ~9) -SCDs for now -Daily CBC (6) Diastolic heart failure: Appears euvolemic -Continue torsemide for volume management -Per chart review, most recent torsemide dose 20mg BID. Need to clarify with p atient tomorrow -Monitor renal function and po intake (7) Hypertension: Continue amlodipine, torsemide (8) Depression: Continue SSRI (9) Hyperparathyroidism: Continue calcitriol (10) HLD (hyperlipidemia): Continue statin DVT Ppx: SCDs in setting of anemia, possible procedure Code status: DNR per discussion with patient PCP: ISHAAN Perkins Dispo: Admitted to med/surg. Plan to return home once medically stable. Patient seen in collaboration with Dr. Wong. Please see addendum. History of Present Illness Chief Complaint: Right foot diabetic ulcer Primary Care Provider: Deedee Perkins PA-C This is a 73-year-old male with a PMH of neuroendocrine tumor of pancreas with mets status post chemoembolization, IDDM 2, CKD IV, hypertension, hyperlipidemia, diastolic heart failure, asthma and other medical problems listed below who presents with right second toe foot ulcer x 5 days. Ulcer was initially blackened and patient was evaluated by [facility] L[facility] days ago and started on Keflex. Today, noted that ulcer had opened up and became red so she brought patient to ED for further evaluation. Has no feeling in feet due to diabetic neuropathy. No fever or chills. Follows with endocrinology in [place] for neuroendocrine tumor and recently had insulin dose adjusted. Afebrile hemodynamically stable in the ED. No leukocytosis. ESR greater than 90. Creatinine of 1.99 at baseline. Glucose 322. R foot XR with operative changes consistent with resection distal phalanx great toe as well as a small component ductal aspect of the proximal phalanx. No additional lytic or blastic process. Superimposed degenerative change. 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 Denies lightheadedness, visual changes, headache, chest pain, palpitations, shortness of breath, nausea, vomiting, abdominal pain, dysuria, diarrhea or constipation. Allergies Allergy/AdvReac Type Severity Reaction Status Date / Time Sulfa (Sulfonamide Allergy Mild RASH Verified 01/24/19 19:28 Antibiotics) NSAIDS (Non-Steroidal Allergy Unknown "NO Verified 01/24/19 19:28 Anti-Inflamma NSAIDS"due to kidney disease Home Medications Home Medications Medication Instructions Recorded Confirmed Type Lantus Solostar U-100 Insulin 15 unit SUBCUT QPM 07/22/18 01/24/19 History calcitriol 0.25 mcg PO QAM 07/22/18 01/24/19 History ergocalciferol (vitamin D2) 2,000 unit PO QAM 07/22/18 01/24/19 History fluoxetine 20 mg PO QAM 07/22/18 01/24/19 History ranitidine HCl 150 mg PO HS 07/22/18 01/24/19 History sevelamer carbonate 800 mg PO TIDM 07/22/18 01/24/19 History simvastatin 20 mg PO HS 07/22/18 01/24/19 History alfuzosin 10 mg PO PM 11/13/18 01/24/19 History amlodipine 2.5 mg PO QAM 11/13/18 01/24/19 History albuterol sulfate 2 puff INHALATION Q6H PRN 11/14/18 01/24/19 History acetaminophen [Tylenol Extra 500 mg PO Q6H PRN 01/24/19 01/24/19 History Strength] allopurinol 100 mg PO QAM 01/24/19 01/24/19 History cephalexin 500 mg PO Q6H 01/24/19 01/24/19 History docusate sodium 100 mg PO BID PRN 01/24/19 01/24/19 History fluticasone propion-salmeterol 1 inh INHALATION BID 01/24/19 01/24/19 History [Advair Diskus] gabapentin 400 mg PO BID 01/24/19 01/24/19 History insulin lispro [Humalog KwikPen 0 unit SUBCUT TIDM 01/24/19 01/24/19 History Insulin] sodium polystyrene sulfon-sorb 60 ml PO QAM 01/24/19 01/24/19 History [SPS (with sorbitol)] torsemide 20 mg PO BID 01/24/19 01/24/19 History Past Med/Surg History Medical History IDDM (insulin dependent diabetes mellitus) (Chronic) Hyperparathyroidism (Chronic) HLD (hyperlipidemia) (Chronic) 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 Diastolic heart failure (Chronic) Liver cancer (Chronic) Pancreas cancer (Chronic) Hypertension (Chronic) Depression (Chronic) CKD (chronic kidney disease), stage IV (Chronic) Chronic neck pain (Chronic) Asthma (Chronic) Anemia (Chronic) Kidney stones Surgical History S/P foot surgery (Chronic) bone spur removed S/P knee surgery (Chronic) S/P lumbar spine operation (Chronic) H/O cervical spine surgery (Chronic) Family History Other Breast cancer Diabetes No pertinent family history Social History Preferred Language: [place] Communication Ability: Effective Visual Impairment: No Limitations Hearing Ability: Normal Electronic Plotting System Operator Required: No Beliefs That Will Affect Care: None marital status: Current Living Situation: Spouse Other Information That Helps Us Care for You: No Feels Safe at Home: Yes Safety Concerns: Feels Safe At This Time Smoking Status: Former smoker Tobacco Type: cigarettes, pipe and cigars ; Smoking End Date: years ago ; Hx Alcohol Use: No Hx Substance Use: No Review of Systems Review of Systems: At least ten systems reviewed and negative except as noted in the HPI. Physical Exam Physical Exam: General Appearance: WD/WN, vitals as above, NAD, sitting up in bed, pleasant, appear chronically ill Head: normocephalic, atraumatic Eyes: normal inspection, PERRL, conjunctivae normal, anicteric sclerae ENT: external ear and nose normal, oropharynx normal Neck: trachea midline, no thyromegaly normal visual inspection Respiratory: normal respiratory effort, lungs clear to auscultation, no wheeze, rales, rhonchi. Normal insp/exp effort, no accessory muscle use Cardiovascular: regular rate, rhythm, no murmur appreciated, normal peripheral pulses. Vessels: no JVD or carotid bruit Chest: normal inspection of chest Abdomen/GI: normal bowel sounds, soft, nontender, no hepatosplenomegaly Extremities/Musculoskelatal: no cyanosis or clubbing, extremities motor strength 5/5. + R 2nd toe erythematous with ulcer on distal digit. No drainage noted. Warm to touch Neurologic: PERRL, EOMI, accommodation nl, no face palsy, no dysarthria CN's II-XI intact bilaterally and moves all extremities Psychiatric: A+Ox3, flattened affect Skin: no rashes, + pale , warm/dry Results & Data Vital Signs (Past 12 Hours) Vital Signs Temp Pulse Pulse Resp BP BP Pulse Ox 01/24/19 19:27 84 20 159/63 H 98 01/24/19 17:28 36.9 C 92 H 20 116/61 98 Laboratory Results Short CBC 01/24/19 Range/Units 18:46 WBC 6.46 (4.8-10.8) K/uL Hgb 8.6 L (14.0-18.0) g/dL Hct 26.4 L (42-52) % Plt Count 272 (130-400) K/uL BMP 01/24/19 18:46 Sodium 140 Potassium 4.1 Chloride 105 Carbon Dioxide 29 BUN 45 H Creatinine 1.99 H Glucose 322 H* Calcium 8.3 L Liver Function 10/25/19 Range/Units 18:46 Total Bilirubin 0.2 (0.2-1) mg/dl AST 15 (15-37) U/L ALT 19 (12-78) U/L Alkaline Phosphatase 144 H (45-117) U/L Albumin 2.4 L (3.4-5.0) gm/dl Diagnostic Findings R foot XR: IMPRESSION: 1. Operative changes consistent with resection distal phalanx great toe as well as a small component ductal aspect of the proximal phalanx. No additional lytic or blastic process. Superimposed degenerative change. Code Status & VTE Plan VTE Prophylaxis Plan VTE Prophylaxis will be ordered: Yes Supervising Physician Co-Signing Physician Notes I saw this patient with the physician wardrobe assistant, I participated in the history, physical, review of systems, and physical exam. I reviewed the medications with the patient and the physician wardrobe assistant and helped reconcile the medications. I helped take a detailed family and social history as well. I formulated the assessment and plan personally with the physician wardrobe assistant and went over it with the patient. Physical Exam Gen-AAO x 3, NAD, Afebrile Head-NCAT, EOMI, PERRLA, Anicteric Sclera, No Posterior Pharyngeal Erythema Neck-Supple, No JVD, No Thyromegaly, No Masses, No LAD, No Bruits Lungs-Clear to Auscultation Bilaterally, No Rales, No Rhonchi, No Wheezing, No Crepitus Chest-No S4, +S1, +S2, No S3, No Murmurs, No Rubs, No Gallops, No Ectopy Abdomen-Soft, Bowel Sounds Present, Non Tender, Non Distended, No Hepatomegaly, No Splenomegaly, No Palpable Masses, No Rebound, No Rigidity, No Guarding Musculoskeletal-Full Range of Motion Bilaterally, No CVAT Extremities-No Cyanosis, No Clubbing, No Edema, R Second toe c pustule and erythema Nuero-Cranial Nerves II-XII grossly intact, Motor WNL, DTRs WNL, Strength WNL, Non Focal Psych-Normal Mood
[2019-01-24] MEDS ORDERED: PHARMACY GLYCEMIC MGMT CONSULT PRN (21:20)
[2019-01-24 21:37] LABS: Albumin Globulin Ratio 0.5 (0.9-2)
[2019-01-24 21:39] LABS: C Reactive Protein 5.01 mg/dl (0-0.29)
[2019-01-24] MEDS ORDERED: ALBUTEROL HFA 8 GM INHALER INH PRN (21:45)
[2019-01-24] MEDS ORDERED: DOCUSATE SODIUM 100 MG CAP PO PRN (21:45)
[2019-01-24] MEDS ORDERED: HEPARIN SOD 5,000 UNIT/0.5 ML VIAL SQ SCH (22:00)
[2019-01-24] MEDS ORDERED: INSULIN GLARGINE SOLOSTAR 100 UNITS/ML 3 ML PEN SQ ONE (22:00)
[2019-01-24] MEDS: FLUTICASONE/SALMETEROL 250/50 (ADVAIR) 14 PUFF/1 INHALER INH SCH (22:42)
[2019-01-24] MEDS: GABAPENTIN 400 MG CAP PO SCH (22:42)
[2019-01-24] MEDS: SIMVASTATIN 20 MG TAB PO SCH (22:43)
[2019-01-24] MEDS: INSULIN ASPART 100 UNITS/ML 3 ML PEN SC SCH (23:00)
[2019-01-25] MEDS: INSULIN ASPART 100 UNITS/ML 3 ML PEN SC SCH ×6 (00:09→21:43)
[2019-01-25] MEDS: PIPERACILLIN/TAZOBACTAM 3.375 GM in DEXTROSE 5% 100 ML IV SCH ×3 (02:58→18:24)
[2019-01-25 05:22] LABS: Hematocrit (blood only) 21.9 % (42-52); Hemoglobin 7.3 g/dL (14.0-18.0); Mean Corpuscular Hemoglobin 28.4 pg (25-34); Mean Corpuscular Hgb Conc 33.3 g/dL (32-36); Mean Corpuscular Volume 85.2 fL (80-100); Mean Platelet Volume 11.6 fL (7.4-10.4); Platelet Count 235 K/uL (130-400); RDW Coefficient of Variation 14.6 % (11.5-14.5); RDW Standard Deviation 45.3 fL (36.4-46.3); Red Blood Count 2.57 M/uL (4.7-6.1)
[2019-01-25 05:52] LABS: BUN Creatinine Ratio 21.5 (10-20); Creatinine Clr Calc Pharmacy 39.9 ml/min; Est GFR (Non-African American) 34.5
[2019-01-25] MEDS ORDERED: TORSEMIDE 10 MG TAB PO SCH (09:00)
[2019-01-25] MEDS ORDERED: ALFUZOSIN HCL 10 MG TAB PO SCH (09:00)
[2019-01-25] MEDS ORDERED: INSULIN GLARGINE SOLOSTAR 100 UNITS/ML 3 ML PEN SQ SCH ×2 (09:00→16:30)
[2019-01-25] MEDS ORDERED: AMLODIPINE BESYLATE 5 MG TAB PO SCH (09:00)
[2019-01-25] MEDS: FLUTICASONE/SALMETEROL 250/50 (ADVAIR) 14 PUFF/1 INHALER INH SCH ×2 (09:26→21:40)
[2019-01-25] MEDS: TORSEMIDE 10 MG TAB PO SCH ×2 (09:29→17:55)
[2019-01-25] MEDS: GABAPENTIN 400 MG CAP PO SCH ×2 (09:30→21:40)
[2019-01-25] MEDS: FLUOXETINE HCL 20 MG CAP PO SCH (09:30)
[2019-01-25] MEDS: SEVELAMER HCL 800 MG TABLET PO SCH ×3 (09:30→17:55)
[2019-01-25] MEDS: CHOLECALCIFEROL 1,000 UNITS TAB PO SCH (09:31)
[2019-01-25] MEDS: AMLODIPINE BESYLATE 5 MG TAB PO SCH (09:31)
[2019-01-25] MEDS: CALCITRIOL 0.25 MCG CAPSULE PO SCH (09:32)
[2019-01-25] MEDS: ALLOPURINOL 100 MG TAB PO SCH (09:32)
[2019-01-25] MEDS: SODIUM POLYSTYRENE SULFONATE 15G/60ML SUSP PO SCH (09:33)
--- NOTE | 2019-01-25 10:25 | Pharmacy Report ---
Glycemic Control Consultation - Date of Service January 25, 2019 - Scope Scope: Glycemic Pharmacist consulted by Dr Wong on 01/24 for glycemic control and to write orders per [facility] inpatient glycemic control protocol - Objective Weight: 89.1 kg Accuchecks BSG (last 24hrs): 01/24/19 01/24/19 01/24/19 18:46 21:48 23:54 Glucose 322 H* POC Glucose 228 H 198 H 01/25/19 01/25/19 01/25/19 03:53 04:36 08:07 Glucose 100 H POC Glucose 110 H 99 Laboratory Data (last 24hrs): 01/24/19 01/25/19 18:46 04:36 Potassium 4.1 4.0 Carbon Dioxide 29 29 Anion Gap 6.0 4.0 Creatinine 1.99 H 1.91 H Est Cr Clr Drug Dosing 39.4 39.9 Beta-Hydroxybutyric Acd 1.06 - Recent Pertinent Medications Outpatient Anti-diabetic Regimen: * Lantus 15 units qAM * Humalog per sliding scale (1-5 units) * Patient's A1c result is likely somewhat unreliable in ESRD patients d/t interactions between the A1c analyzing technique and high levels of urea in ESRD, reduced RBC life span, iron deficiency anemia, and EPO administration. HbA1c > 7.5% in ESRD patient may overestimate the extent of hyperglycemia in ESRD patients. The patient is currently receiving: * Basal insulin: Lantus 15 units every 24 hours (received total of 30 units yesterday) * Correctional Insulin: Novolog Correction per scale ACHS Goal Range: Low 110 mg/dL - High 150 mg/dL Correction Factor: 25 mg/dL/unit * Prandial insulin: Per carb ratio of 1 unit per 9 grams CHO consumed Risk Factors for Insulin Resistance: * Infection: * Diet: T2DM - Assessment & Plan Assessment & Plan: ASSESSMENT: * 73 y/o male admitted for toe infection. He has a history of type 2 diabetes and pancreatic cancer, managed by an filler shredder machine in [place]. * He was admitted with hyperglycemia last evening and an additional dose of basal insulin was given because of severe hyperglycemia with outpatient basal dose already given in the AM. * BSGs have dropped significantly overnight. Fasting = 99 mg/dL this AM. Will hold off on basal this AM and resume with a scaled dose later today. Novolog parameters will also be loosened this AM, and then tightened back w/ dinner. PLAN FOR INPATIENT GLYCEMIC CONTROL: * Basal insulin - resume Lantus w/ dinner * Lantus once daily per the following scale: * 15 units for BSG 150 or less * 20 units for BSG above 150 * Bolus insulin - loosen parameters for "lower" BSG this AM, tighten back w/ dinner * NovoLog per scale ACHS or Q6hrs while NPO * Goal Range: Low 110 mg/dL - High 150 mg/dL * Correction Factor: 35 mg/dL/unit -> 30 mg/dL/unit * Nutritional / Prandial insulin per carb ratio of 1 unit per 15 grams CHO consumed -> 1 unit per 10 gm CHO * Please note that the plan above was derived based on current level of insulin resistance and hospital stress. These recommendations are appropriate for inpatient admission only. Plan of care upon discharge will need to be reassessed to avoid potential outpatient hypo/hyperglycemia. Thank you.
--- NOTE | 2019-01-25 16:53 | Hospitalist Progress Note ---
Date of Service January 25, 2019 Assessment & Plan (1) Diabetic ulcer of toe of right foot associated with type 2 diabetes mellitus: Present on admission with worsening right second toe foot ulcer Failed outpatient therapy with Keflex CXR showed operative changes consistent with resection distal phalanx great toe as well as a small component ductal aspect of the proximal phalanx. 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 Huynh [facility] [place] (4) CKD (chronic kidney disease), stage IV: Creatinine 1.99 (baseline creatinine btw 2 to 2.2) Follows with Dr. Clancy in clinic Continue calcitriol, sevelamer (5) Anemia: Hgb of 8.6 (baseline ~9) Hemoglobin 7.3 Will monitor H/H and transfuse if hgb continue to drop Check H/H later (6) Diastolic heart failure: Appears euvolemic Continue Torsemide Stable (7) Hypertension: BP stable Continue amlodipine, torsemide (8) Depression: Continue SSRI (9) Hyperparathyroidism: Continue calcitriol (10) HLD (hyperlipidemia): Continue statin DVT Ppx: SCDs in setting of anemia, possible procedure Code status: DNR Dispo: Continue monitor closely Subjective Pt was seen and examined Lying in bed with no distress Pt said that he feels very sleepy Denies any chest pain, palpitation, dizziness and SOB Physical Exam Physical Exam: General- No acute distress Head- atraumatic Eyes- PERRL, EOMI, ENT- oropharynx clear Neck- supple, no JVD Lungs- clear to auscultation Heart- regular rhythm; no murmur Abdomen- normal bowel sounds, soft, nontender Extremities- no calf tenderness, + R 2nd toe erythematous with ulcer on distal digit, no drainage Neuro- alert, oriented x 3; PERRL, EOMI; no facial palsy; no dysarthria Skin- warm & dry Results & Data Vital Signs (Past 12 Hours) Vital Signs Temp Pulse Resp BP Pulse Ox 01/25/19 15:16 37.2 C 101 H 18 115/57 L 96 01/25/19 07:14 36.5 C 78 17 132/61 98
[2019-01-25 17:51] LABS: Hematocrit (blood only) 25.6 % (42-52); Hemoglobin 8.2 g/dL (14.0-18.0)
[2019-01-25] MEDS: ALFUZOSIN HCL 10 MG TAB PO SCH (21:41)
[2019-01-25] MEDS: SIMVASTATIN 20 MG TAB PO SCH (21:42)
--- NOTE | 2019-01-26 00:06 | Consultation Report ---
DATE OF CONSULTATION: 01/25/2019 PERTINENT HISTORY: This is a 73-year-old gentleman seen at the request of Dr. Souleymane Wong and Dr. Kwame Baron for right foot second toe osteomyelitis and claw toes. The patient has been well known to the orthopedic service, had prior partial amputation of the right great toe in September, and was improving from his surgical intervention; however, developed redness, swelling, and worsening of his ulceration of the second toe, right foot. He was seen in the orthopedic clinic, placed on oral antibiotics, and then after approximately 2-3 days of oral antibiotic usage, had worsening of his second toe with some purulent discharge. Admitted to the hospitalist service and orthopedics was consulted. He had redness, swelling, and some discomfort in the foot despite his neuropathy. PAST MEDICAL HISTORY: Neuroendocrine tumor of the pancreas, metastatic disease; insulin-dependent diabetes mellitus type 2; chronic kidney disease stage IV; hypertension; hyperlipidemia; diastolic heart failure; asthma; hyperparathyroidism; liver cancer; depression; chronic neck pain; asthma; anemia, kidney stones. PAST SURGICAL HISTORY: Right foot surgery, knee surgery, lumbar spine operation, cervical spine surgery, partial amputation of right great toe. ALLERGIES: SULFA ANTIBIOTICS, MILD RASH; ANTI-INFLAMMATORIES, KIDNEY SENSITIVITY. MEDICATIONS: Please note the medical list provided in the medical record. SOCIAL HISTORY: He is and lives with his spouse. He is a former tobacco user. He stopped smoking several years ago. Denies significant alcohol use, no drug use. He is retired. PHYSICAL EXAMINATION: GENERAL: This is a 73-year-old gentleman who is alert and oriented x3. Speech, clear and fluent. Affect is appropriate. Lying supine in his hospital room bed. EXTREMITIES: Examination of the right foot demonstrates ulceration with purulence, severe clawing of the second and third toes, right foot. Erythema and fusiform swelling of the right second toe. Some streaking into the proximal phalanx of the second toe. Destruction of the nail with exposed bone of the distal phalanx with a probe. Position and alignment of the second and third toes significantly clawed, folded under the point where any weightbearing would cause further ulceration of second toe and beginning of the third toe. Rigid flexor contractures noted at the second and third toe, status post amputation of the great toe with a healing eschar. No erythema in the great toe. Atrophic skin, bilateral lower extremities. Feet are warm. No palpable pulses bilaterally. RADIOGRAPHS AND LABORATORY DATA: Reviewed. IMPRESSION: Right second toe osteomyelitis of the distal phalanx, severe clawtoe deformity, particularly of the right second and third, diabetes mellitus, peripheral neuropathy, and peripheral vascular disease. RECOMMENDATION: For right second toe partial amputation involving the distal phalanx, with flexor tenotomies of the right second and third toes. N.p.o. after midnight. Discussed the patient's care with Dr. Kwame Baron. Thanks for the opportunity to consult in the care of this patient.
[2019-01-26] MEDS: PIPERACILLIN/TAZOBACTAM 3.375 GM in DEXTROSE 5% 100 ML IV SCH (02:14)
[2019-01-26 05:16] LABS: Hematocrit (blood only) 23.9 % (42-52); Hemoglobin 8.1 g/dL (14.0-18.0); Mean Corpuscular Hemoglobin 29.1 pg (25-34); Mean Corpuscular Hgb Conc 33.9 g/dL (32-36); Mean Platelet Volume 11.3 fL (7.4-10.4); Platelet Count 229 K/uL (130-400); RDW Coefficient of Variation 14.6 % (11.5-14.5); RDW Standard Deviation 46.1 fL (36.4-46.3); Red Blood Count 2.78 M/uL (4.7-6.1); White Blood Count 6.73 K/uL (4.8-10.8)
[2019-01-26 05:44] LABS: BUN Creatinine Ratio 18.9 (10-20); Calcium 7.8 mg/dl (8.5-10.1); Creatinine Clr Calc Pharmacy 30.8 ml/min; Est GFR (African American) 29.3; Est GFR (Non-African American) 25.3
[2019-01-26] MEDS ORDERED: INSULIN GLARGINE SOLOSTAR 100 UNITS/ML 3 ML PEN SQ SCH (07:14)
--- NOTE | 2019-01-26 07:28 | Hospitalist Progress Note ---
Date of Service January 26, 2019 Assessment & Plan (1) Diabetic ulcer of toe of right foot associated with type 2 diabetes mellitus: Present on admission with worsening right second toe foot ulcer Failed outpatient therapy with Keflex CXR showed operative changes consistent with resection distal phalanx great toe as well as a small component ductal aspect of the proximal phalanx. No additional lytic or blastic process Afebrile, no leukocytosis, ESR greater than 90 Continue IV Zosyn Wound culture grew staph aureus MRSA Will changed abx to IV dapto Will consult ID Ortho on board plan to take to OR today, case discussed with Dr. 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 Huynh [facility] [place] (4) CKD (chronic kidney disease), stage IV: Creatinine 1.99 on admission (baseline creatinine btw 2 to 2.2) Creatinine 2.4 today Will hold torsemide today Follows with Dr. Clancy in clinic Continue calcitriol, sevelamer Check BMP in am (5) Anemia: Hgb of 8.6 (baseline ~9) Hemoglobin 8.1 Will monitor H/H and transfuse if hgb drops below 8 Continue monitor H/Hr (6) Diastolic heart failure: Appears euvolemic Hold Torsemide today due to increase in creatinine 2.4 Stable (7) Hypertension: BP stable Continue amlodipine Hold torsemide today (8) Depression: Continue SSRI (9) Hyperparathyroidism: Continue calcitriol (10) HLD (hyperlipidemia): Will hold statin while on Dapto DVT Ppx: SCDs in setting of anemia, possible procedure Code status: DNR Dispo: Continue monitor closely Subjective Pt was seen and examined Lying in bed with no distress Pt said that he feels ok Denies any chest pain, palpitation, dizziness and SOB Physical Exam Physical Exam: General- No acute distress Head- atraumatic Eyes- PERRL, EOMI, ENT- oropharynx clear Neck- supple, no JVD Lungs- clear to auscultation Heart- regular rhythm; no murmur Abdomen- normal bowel sounds, soft, nontender Extremities- no calf tenderness, + R 2nd toe erythematous with ulcer on distal digit, no drainage Neuro- alert, oriented x 3; PERRL, EOMI; no facial palsy; no dysarthria Skin- warm & dry Results & Data Vital Signs (Past 12 Hours) Vital Signs Temp Pulse Resp BP Pulse Ox 01/25/19 23:11 37.5 C 74 16 122/64 96
--- NOTE | 2019-01-26 08:26 | Anesthesiology Consultation ---
Date of Service January 26, 2019 Assessment & Plan (1) Encounter for pre-operative examination: Chart Review Chart Review: Acceptable Risk for Surgery History Surgery Operation Date: 01/26/19 08:30 Proposed Procedures p Amputation Rosales Rose DO Height/Weight Height: 5 ft 10 in Weight: 89.1 kg Allergies Allergy/AdvReac Type Severity Reaction Status Date / Time Sulfa (Sulfonamide Allergy Mild RASH Verified 01/24/19 19:28 Antibiotics) NSAIDS (Non-Steroidal Allergy Unknown "NO Verified 01/24/19 19:28 Anti-Inflamma NSAIDS"due to kidney disease Medications Home Medications Medication Instructions Recorded Confirmed Last Taken Lantus Solostar U-100 Insulin 15 unit SUBCUT QAM 07/22/18 01/25/19 01/24/19 calcitriol 0.25 mcg PO QAM 07/22/18 01/24/19 01/24/19 ergocalciferol (vitamin D2) 2,000 unit PO QAM 07/22/18 01/24/19 01/24/19 fluoxetine 20 mg PO QAM 07/22/18 01/24/19 01/24/19 ranitidine HCl 150 mg PO HS 07/22/18 01/24/19 01/23/19 sevelamer carbonate 800 mg PO TIDM 07/22/18 01/24/19 01/24/19 simvastatin 20 mg PO HS 07/22/18 01/24/19 01/23/19 alfuzosin 10 mg PO PM 11/13/18 01/24/19 01/24/19 amlodipine 2.5 mg PO QAM 11/13/18 01/24/19 01/24/19 albuterol sulfate 2 puff INHALATION Q6H PRN 11/14/18 01/24/19 Unknown acetaminophen [Tylenol Extra 500 mg PO Q6H PRN 01/24/19 01/24/19 01/24/19 Strength] allopurinol 100 mg PO QAM 01/24/19 01/24/19 01/24/19 cephalexin 500 mg PO Q6H 01/24/19 01/24/19 01/24/19 docusate sodium 100 mg PO BID PRN 01/24/19 01/24/19 Unknown fluticasone propion-salmeterol 1 inh INHALATION BID 01/24/19 01/24/19 01/24/19 [Advair Diskus] gabapentin 400 mg PO BID 01/24/19 01/24/19 01/24/19 insulin lispro [Humalog KwikPen 0 unit SUBCUT TIDM 01/24/19 01/24/19 01/24/19 Insulin] sodium polystyrene sulfon-sorb 60 ml PO QAM 01/24/19 01/24/19 01/24/19 [SPS (with sorbitol)] torsemide 20 mg PO BID 01/24/19 01/24/19 Unknown Active Medications Generic Name Dose Route Start Last Admin Trade Name Freq PRN Reason Stop Dose Admin Alfuzosin HCl 10 mg 01/25/19 21:00 01/25/19 21:41 Uroxatral PO 02/24/19 20:59 10 mg PM JOSSUE Administration Allopurinol 100 mg 01/25/19 09:00 01/25/19 09:32 Zyloprim PO 02/24/19 08:59 100 mg QAM JOSSUE Administration Amlodipine Besylate 2.5 mg 01/25/19 09:00 01/25/19 09:31 Norvasc PO 02/24/19 08:59 2.5 mg QAM JOSSUE Administration Calcitriol 0.25 mcg 01/25/19 09:00 01/25/19 09:32 Rocaltrol PO 02/24/19 08:59 0.25 mcg QAM JOSSUE Administration Fluoxetine HCl 20 mg 01/25/19 09:00 01/25/19 09:30 Prozac PO 02/24/19 08:59 20 mg QAM JOSSUE Administration Gabapentin 400 mg 01/24/19 21:45 01/25/19 21:40 Neurontin PO 02/23/19 21:44 400 mg BID JOSSUE Administration Insulin Aspart 0 units 01/24/19 22:00 01/25/19 21:43 Novolog Flexpen SC 02/23/19 21:59 3 units ACHS JOSSUE Administration Ranitidine HCl 150 mg 01/24/19 21:45 01/25/19 21:41 Zantac PO 02/23/19 21:44 150 mg HS JOSSUE Administration Fluticasone/Salmeterol 1 puffs 01/24/19 21:45 01/25/19 21:40 Advair Diskus 250/50 INH 02/23/19 21:44 Not Given BID JOSSUE Sevelamer HCl 800 mg 01/25/19 08:00 01/25/19 17:55 Renagel PO 02/24/19 07:59 800 mg TIDM JOSSUE Administration Simvastatin 20 mg 01/24/19 21:45 01/25/19 21:42 Zocor PO 02/23/19 21:44 20 mg HS JOSSUE Administration Sodium Polystyrene Sulfonate 15 gm 01/25/19 09:00 01/25/19 09:33 Kayexalate PO 02/24/19 08:59 Not Given QAM JOSSUE Torsemide 20 mg 01/25/19 09:00 01/25/19 17:55 Demadex PO 02/24/19 08:59 20 mg [id number] JOSSUE Administration Vitamin D 2,000 units 01/25/19 09:00 01/25/19 09:31 Vitamin D3 PO 02/24/19 08:59 2,000 units QAM JOSSUE Administration NPO Date Last Intake of Fluids: 01/25/19 Time Last Intake of Fluids: 23:59 Date Last Intake of Solids: 01/25/19 Time Last Intake of Solids: 23:59 Past Medical History Medical History IDDM (insulin dependent diabetes mellitus) (Chronic) Hyperparathyroidism (Chronic) HLD (hyperlipidemia) (Chronic) 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 Diastolic heart failure (Chronic) Liver cancer (Chronic) Pancreas cancer (Chronic) Hypertension (Chronic) Depression (Chronic) CKD (chronic kidney disease), stage IV (Chronic) Chronic neck pain (Chronic) Asthma (Chronic) Anemia (Chronic) Kidney stones Past Family History Family History Other Breast cancer Diabetes No pertinent family history Past Surgical History Surgical History S/P foot surgery (Chronic) bone spur removed S/P knee surgery (Chronic) S/P lumbar spine operation (Chronic) H/O cervical spine surgery (Chronic) Social History Smoking Status: Former smoker tobacco type: cigarettes, pipe and cigars Smoking End Date: years ago Hx Alcohol Use: No Hx Substance Use: No Physical Exam Vital Signs Last Vital Signs Temp 36.5 C 01/26/19 07:37 Pulse 84 01/26/19 07:37 Resp 16 01/26/19 07:37 BP 101/55 L 01/26/19 07:37 Pulse Ox 97 01/26/19 07:37 Testing Laboratory Results 01/26/19 04:42 01/26/19 04:42 01/24/19 17:55 Gram Stain - Final Toe,Right Second Wound Culture - Preliminary Staph aureus MRSA 01/26/19 01/26/19 01/25/19 05:55 02:30 20:46 POC Glucose 149 H 118 H 221 H Creatinine bump from yesterday (1.9, which is around his baseline) - they held his torsemide for today Monitoring his Hb as it has slowly drifted down Electrocardiogram Date: 11/13/18 Findings: + NSR @ (89 prolonged QT, no change from prior) Echocardiogram Date: 01/06/17 EF: 55-60% LV Function: normal Valvular Disease: + no significant valvular disease Stress Test Date: 01/06/17 Type: DSE Findings: + WNL Resting LV Function: normal
[2019-01-26] MEDS: SEVELAMER HCL 800 MG TABLET PO SCH ×3 (08:38→15:59)
[2019-01-26] MEDS: INSULIN ASPART 100 UNITS/ML 3 ML PEN SC SCH ×4 (08:38→21:23)
[2019-01-26] MEDS: DAPTOmycin 500 MG in SYRINGE 0 ML IV SCH (08:47)
[2019-01-26] MEDS: FLUTICASONE/SALMETEROL 250/50 (ADVAIR) 14 PUFF/1 INHALER INH SCH ×2 (09:00→21:22)
[2019-01-26] MEDS: GABAPENTIN 400 MG CAP PO SCH ×2 (09:01→21:23)
[2019-01-26] MEDS: CALCITRIOL 0.25 MCG CAPSULE PO SCH (09:01)
[2019-01-26] MEDS: ALLOPURINOL 100 MG TAB PO SCH (09:01)
[2019-01-26] MEDS: AMLODIPINE BESYLATE 5 MG TAB PO SCH (09:01)
[2019-01-26] MEDS: FLUOXETINE HCL 20 MG CAP PO SCH (09:01)
[2019-01-26] MEDS: CHOLECALCIFEROL 1,000 UNITS TAB PO SCH (09:01)
[2019-01-26] MEDS: SODIUM POLYSTYRENE SULFONATE 15G/60ML SUSP PO SCH (09:01)
[2019-01-26] MEDS ORDERED: MIDAZOLAM HCL 1 MG/ML 2ML VIAL ONE (09:11)
[2019-01-26] MEDS ORDERED: fentaNYL citrate 100 MCG/2 ML VIAL ONE (09:11)
[2019-01-26] MEDS ORDERED: LIDOCAINE HCL 2% 2 ML VIAL/AMP(20MG/ML) INFIL ONE (09:11)
[2019-01-26] MEDS ORDERED: ONDANSETRON INJ 2 MG/ML 2 ML VIAL ONE (09:11)
[2019-01-26] MEDS ORDERED: PROPOFOL IV EMULSION 10 MG/ML 20 ML VIAL IV ONE (09:11)
--- NOTE | 2019-01-26 09:14 | History & Physical Bridge Note ---
Date of Service January 26, 2019 History & Physical Bridge Note I have examined the patient, reviewed the History & Physical and in the interval since the performance of the History & Physical I have noted the following changes of clinical significance: no changes noted
[2019-01-26] MEDS ORDERED: BUPIVACAINE 0.5 % 5 MG/1 ML MPF 30ML VIAL ONE (09:22)
[2019-01-26] MEDS ORDERED: BACITRACIN INJ 50,000 UNIT VIAL ONE (09:23)
[2019-01-26] MEDS ORDERED: fentaNYL citrate 100 MCG/2 ML VIAL IV PRN (09:33)
[2019-01-26] MEDS ORDERED: ONDANSETRON INJ 2 MG/ML 2 ML VIAL IV PRN (09:33)
[2019-01-26] MEDS ORDERED: ATROPINE SULFATE 0.1 MG/ML 10ML SYR IV PRN (09:33)
--- NOTE | 2019-01-26 10:40 | Post Operative Brief Note ---
Immediate Post Op Note v1 Date of Surgery January 26, 2019 Pre & Post Diagnosis Operation Date: 01/26/19 08:30 Pre-Op Diagnosis: Right second toe osteomyelitis of the distal phalanx, severe clawtoe deformity right second and third toes, diabetes mellitus, peripheral neuropathy, and peripheral vascular disease. Post-Op Diagnosis: Right second toe osteomyelitis of the distal phalanx, severe clawtoe deformity right second and third toes, diabetes mellitus, peripheral neuropathy, and peripheral vascular disease. I identified the patient and participated in the time-out.: Yes Procedure Operation Date: 01/26/19 08:30 Actual Procedures p Right second toe partial amputation including distal phalanx, Flexor tenotomy second toe, flexor tenotomy third toe right foot- Josse Rose DO Surgeon Josse Rose DO Cancer Spec Jen Matthews PA-C Estimated Blood Loss 1 Findings Consistent with Post-Op Diagnosis Specimens Distal phalanx and tissue partial amputation right second toe Anesthesia Type MAC Regional Complications none Disposition Accompanied Patient To Recovery: No Disposition: Recovery Room
--- NOTE | 2019-01-26 10:45 | Pharmacy Report ---
Pharmacy Glycemic Short Note 2 - Date of Service January 26, 2019 - Glycemic Short BSG Results (Last 24 hours): 01/25/19 01/25/19 01/25/19 12:42 17:11 20:46 Glucose POC Glucose 170 H 244 H 221 H 01/26/19 01/26/19 01/26/19 02:30 04:42 05:55 Glucose 120 H POC Glucose 118 H 149 H OUTPATIENT ANTIDIABETIC REGIMEN: * Lantus 15 units qAM * Humalog per sliding scale (1-5 units) * Patient's A1c result is likely somewhat unreliable in ESRD patients d/t interactions between the A1c analyzing technique and high levels of urea in ESRD, reduced RBC life span, iron deficiency anemia, and EPO administration. HbA1c > 7.5% in ESRD patient may overestimate the extent of hyperglycemia in ESRD patients. The patient is currently receiving: * Basal insulin: Lantus 30 units on 01/24, 20 units on 01/25 * Correctional Insulin: Novolog Correction per scale ACHS Goal Range: Low 110 mg/dL - High 150 mg/dL Correction Factor: 30 mg/dL/unit * Prandial insulin: Per carb ratio of 1 unit per 10 grams CHO consumed Risk Factors for Insulin Resistance: * Infection: toe osteo * Diet: NPO -> T2DM * Surgery: scheduled for R toe partial amputation today - Assessment & Plan ASSESSMENT: 01/26 * Mr. Murillo's postprandial BSGs were above goal yesterday but fasting has improved. He received a total of 36 units of insulin yesterday. * He is scheduled for partial amputation of his toe this AM. AM Lantus was placed on hold by hospitalist. Should be able to resume this after surgery. * SCr increased from 1.9 -> 2.5 01/25 * 73 y/o male admitted for toe infection. He has a history of type 2 diabetes and pancreatic cancer, managed by an systems development consultant in [place]. * He was admitted with hyperglycemia last evening and an additional dose of basal insulin was given because of severe hyperglycemia with outpatient basal dose already given in the AM. * BSGs have dropped significantly overnight. Fasting = 99 mg/dL this AM. Will hold off on basal this AM and resume with a scaled dose later today. Novolog parameters will also be loosened this AM, and then tightened back w/ dinner. PLAN FOR INPATIENT GLYCEMIC CONTROL: * Basal insulin - continue, dose to be resumed after surgery today (confirmed with hospitalist since this was placed on hold) * Lantus qAM per the following scale: * 15 units for BSG < 110 * 20 units for BSG 110 or above * Bolus insulin - tighten parameters * NovoLog per scale ACHS or Q6hrs while NPO * Goal Range: Low 110 mg/dL - High 140 mg/dL * Correction Factor: 25 mg/dL/unit * Nutritional / Prandial insulin per carb ratio of 1 unit per 8 grams CHO consumed PLAN FOR DISCHARGE: * A1c unreliable in the setting of CKD * Recommend to resume outpatient regimen on discharge, continuing f/u with outpatient systems development consultant
[2019-01-26] MEDS ORDERED: INSULIN GLARGINE SOLOSTAR 100 UNITS/ML 3 ML PEN SQ ONE (11:00)
--- NOTE | 2019-01-26 11:00 | Anesthesiology Progress Note ---
Date of Service January 26, 2019 Anesthesia Post Procedure Vital Signs Vital Signs: Temp Pulse Pulse Resp BP Pulse Ox 01/26/19 10:58 82 12 138/69 99 01/26/19 10:41 36.4 C L 82 16 129/69 94 01/26/19 07:37 36.5 C 84 16 101/55 L 97 01/25/19 23:11 37.5 C 74 16 122/64 96 01/25/19 15:16 37.2 C 101 H 18 115/57 L 96 Transfer of Care Handoff Completed per policy Notes Mental Status: alert / awake / arousable Patient Amnestic to Procedure: Yes Nausea / Vomiting: adequately controlled Pain: adequately controlled Airway Patency, RR, SpO2: stable & adequate BP & HR: stable & adequate Hydration State: stable & adequate Anesthetic Complications: no major complications apparent
--- NOTE | 2019-01-26 13:08 | Infectious Disease Consult ---
Date of Consultation January 26, 2019 Assessment & Plan (1) Diabetic ulcer of toe of right foot associated with type 2 diabetes mellitus: 73-year-old diabetic male with diabetic toe ulcer with secondary infection with MRSA, now status post partial amputation. For now, patient should be cont inued on IV daptomycin. Length of antibiotics will be determined by clinical response and healing. Limited oral options given that isolate is resistant to clindamycin, Bactrim, and tetracycline. Only available oral alternative would be linezolid. Will discuss with all involved. Will follow. 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 Patient found to have evidence of osteomyelitis, and today underwent partial toe amputation as well as tenosynovectomy of the third toe for claw toe deformity. Currently being treated with IV daptomycin. Has not had significant fever or chills reported. Pain currently controlled. Allergies Allergy/AdvReac Type Severity Reaction Status Date / Time Sulfa (Sulfonamide Allergy Mild RASH Verified 01/24/19 19:28 Antibiotics) NSAIDS (Non-Steroidal Allergy Unknown "NO Verified 01/24/19 19:28 Anti-Inflamma NSAIDS"due to kidney disease Home Medications Home Medications Medication Instructions Recorded Confirmed Type Lantus Solostar U-100 Insulin 15 unit SUBCUT QAM 07/22/18 01/25/19 History calcitriol 0.25 mcg PO QAM 07/22/18 01/24/19 History ergocalciferol (vitamin D2) 2,000 unit PO QAM 07/22/18 01/24/19 History fluoxetine 20 mg PO QAM 07/22/18 01/24/19 History ranitidine HCl 150 mg PO HS 07/22/18 01/24/19 History sevelamer carbonate 800 mg PO TIDM 07/22/18 01/24/19 History simvastatin 20 mg PO HS 07/22/18 01/24/19 History alfuzosin 10 mg PO PM 11/13/18 01/24/19 History amlodipine 2.5 mg PO QAM 11/13/18 01/24/19 History albuterol sulfate 2 puff INHALATION Q6H PRN 11/14/18 01/24/19 History acetaminophen [Tylenol Extra 500 mg PO Q6H PRN 01/24/19 01/24/19 History Strength] allopurinol 100 mg PO QAM 01/24/19 01/24/19 History cephalexin 500 mg PO Q6H 01/24/19 01/24/19 History docusate sodium 100 mg PO BID PRN 01/24/19 01/24/19 History fluticasone propion-salmeterol 1 inh INHALATION BID 01/24/19 01/24/19 History [Advair Diskus] gabapentin 400 mg PO BID 01/24/19 01/24/19 History insulin lispro [Humalog KwikPen 0 unit SUBCUT TIDM 01/24/19 01/24/19 History Insulin] sodium polystyrene sulfon-sorb 60 ml PO QAM 01/24/19 01/24/19 History [SPS (with sorbitol)] torsemide 20 mg PO BID 01/24/19 01/24/19 History Patient History Medical History IDDM (insulin dependent diabetes mellitus) (Chronic) Hyperparathyroidism (Chronic) HLD (hyperlipidemia) (Chronic) 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 Diastolic heart failure (Chronic) Liver cancer (Chronic) Pancreas cancer (Chronic) Hypertension (Chronic) Depression (Chronic) CKD (chronic kidney disease), stage IV (Chronic) Chronic neck pain (Chronic) Asthma (Chronic) Anemia (Chronic) Kidney stones Surgical History S/P foot surgery (Chronic) bone spur removed S/P knee surgery (Chronic) S/P lumbar spine operation (Chronic) H/O cervical spine surgery (Chronic) Family History Other Breast cancer Diabetes No pertinent family history Social History Preferred Language: Thai Communication Ability: Effective Visual Impairment: No Limitations Hearing Ability: Normal Animal Pathologist Required: No Beliefs That Will Affect Care: None marital status: Current Living Situation: Spouse Other Information That Helps Us Care for You: No Feels Safe at Home: Yes Safety Concerns: Feels Safe At This Time Smoking Status: Former smoker Tobacco Type: cigarettes, pipe and cigars ; Smoking End Date: years ago ; Hx Alcohol Use: No Hx Substance Use: No Review of Systems Review of Systems: All systems reviewed & are unremarkable except as noted in HPI & below Physical Exam Constitutional: WD/WN, vitals as above comfortable; no acute distress Eyes: PERRL, conjunctivae normal, anicteric sclerae ENMT: external ear and nose normal, oropharynx normal Neck: trachea midline, no thyromegaly neck nontender Respiratory: normal respiratory effort, lungs clear to auscultation normal percussion; does not use accessory muscles Cardiovascular: Rate/Rhythm: regular rate and regular rhythm Heart Sounds: normal S1 and normal S2; no gallop, no murmur and no cardiac rub Vessels: normal peripheral pulses; no JVD Gastrointestinal (Abdomen): normal bowel sounds, soft, nontender, no hepatosplenomegaly Musculoskeletal: no cyanosis or clubbing, extremities motor strength 5/5 Spine: thoracic spine normal to inspection and lumbar spine normal to inspection; no cervical spinal tenderness Skin: no rashes, warm and dry normal turgor and + wound (Surgical dressing intact right foot) Neurologic: moves all extremities and awake; no focal motor deficits Psychiatric: A+Ox3, euthymic affect Orientation: cooperative Lymphatic: no cervical or axillary lymphadenopathy no inguinal lymphadenopathy Results & Data Vital Signs (Past 12 Hours) Vital Signs Temp Pulse Pulse Resp BP Pulse Ox 01/26/19 12:38 86 16 113/58 L 97 01/26/19 12:05 79 16 127/61 96 01/26/19 11:10 36.4 C L 82 15 142/62 H 96 01/26/19 11:00 36.4 C L 82 15 138/64 96 01/26/19 10:50 82 12 138/69 99 01/26/19 10:41 36.4 C L 82 16 129/69 94 01/26/19 07:37 36.5 C 84 16 101/55 L 97 Laboratory Results Short CBC 01/25/19 01/26/19 Range/Units 17:42 04:42 WBC 6.73 (4.8-10.8) K/uL Hgb 8.2 L 8.1 L (14.0-18.0) g/dL Hct 25.6 L 23.9 L (42-52) % Plt Count 229 (130-400) K/uL BMP 01/26/19 04:42 Sodium 141 Potassium 4.0 Chloride 106 Carbon Dioxide 28 BUN 47 H Creatinine 2.47 H D Glucose 120 H Calcium 7.8 L Diagnostic Findings Microbiology 01/24/19 17:55 Toe,Right Second Gram Stain - Final 01/24/19 17:55 Toe,Right Second Wound Culture - Preliminary Staph aureus MRSA cc: ~ XR foot RT min 3V routine CLINICAL HISTORY: infection 2nd toe collection COMPARISON: 11/14/2018 DISCUSSION: Interval amputation distal phalanx of the great toe. Deformity proximal phalanx fourth toe felt to be secondary to old trauma. The toes are held in flexion. Generalized degenerative change. Moderate soft tissue edema IMPRESSION: 1. Operative changes consistent with resection distal phalanx great toe as well as a small component ductal aspect of the proximal phalanx. No additional lytic or blastic process. Superimposed degenerative change. The above report was generated using voice recognition software. It may contain grammatical, syntax or spelling errors. Electronically signed by: Oswald Geiger M.D. 01/24/2019 6:24 PM Dictated: 01/24/191821 Transcribed: 01/24/191821 PG Care Time/CCT Total # of Minutes Spent Total Time Spent with Patient: Total time spent is greater than 50% in coordination of care (as documented) at patient's floor/unit and/or counseling patient:
--- NOTE | 2019-01-26 13:45 | Operative Report ---
DATE OF OPERATION: 01/26/2019 PREOPERATIVE DIAGNOSES: 1. Right foot second toe osteomyelitis of the distal phalanx. 2. Gangrene, right second distal phalanx. 3. Clawtoe second toe. 4. Clawtoe third toe with flexor contractures. 5. Peripheral vascular disease. 6. Diabetes mellitus. 7. Diabetic neuropathy. POSTOPERATIVE DIAGNOSES: 1. Right foot second toe osteomyelitis of the distal phalanx. 2. Gangrene, right second distal phalanx. 3. Clawtoe second toe. 4. Clawtoe third toe with flexor contractures. 5. Peripheral vascular disease. 6. Diabetes mellitus. 7. Diabetic neuropathy. PROCEDURE: 1. Right foot second toe partial amputation including the distal phalanx. 2. Right second toe flexor tenotomy. 3. Right third toe flexor tenotomy. SURGEON: Josse Rose DO. TRIM OPERATOR: Ant Matthews PA-C. ANESTHESIA: Monitored anesthesia care with a digital block. SPECIMENS: Distal phalanx, right second toe. DRAINS: None. COMPLICATIONS: None. BLOOD LOSS: 1 mL. PERTINENT HISTORY: This is a 73-year-old gentleman who is well known to the Orthopedic Service. He has had partial amputation of his right great toe, presented over the last week to week and a half with redness and swelling of his right second toe. He had been seen in the Orthopedic Clinic, placed on oral antibiotics due to concern for infection of the second toe. Symptoms worsened. He had worsening redness, streaking, swelling and then drainage and discharge from the second distal toe. He had further imaging which demonstrated bony destruction and a fusiform swelling of the toe, noted to have osteomyelitis with gangrene changes and was then scheduled for surgery as indicated. All potential risks, benefits, complications, alternatives, rehab, potential for incomplete relief of symptoms, need for further surgery, DVT, PE, , persistent pain, swelling, scarring, weakness, neurovascular injury, wound complications, need for further amputation was discussed with the patient. The patient decided to proceed with the procedure as indicated. DESCRIPTION OF PROCEDURE: The patient was taken to the operative suite, placed supine on the operating room table. I reviewed consent and identification of proper operative site, patient was sedated under monitored anesthesia care. Next, right lower extremity was then sterilely prepped and draped in usual fashion, elevated and partially exsanguinated from the mid foot proximally with an Esmarch bandage and Esmarch tourniquet was applied over sterile surgical towel at the level of the ankle. Next, digital blocks were performed to the right 2nd and 3rd toes with 0.5% Marcaine plain. Next, a 15 blade scalpel was used to incise the dorsum of the right second toe over the distal interphalangeal joint. The incision was deepened all the way through the skin, extensor and joint capsule, at the level of the bone. Next, the mid lateral incisions were then carried distally to produce an abundant flap of tissue for the plantar closure of the amputation. The bone was then sharply resected by using a 15 blade and hugging the contour of the plantar surface of the distal phalanx. Therefore, the entire fragment of skin tissue, bone and nail was then passed off as specimen. Next, the flap was then revised with a 15 blade scalpel to have a tension free closure. Next, pulsatile lavage was then used approximately 2 liters with bacitracin and saline to cleanse the right second toe, top gloves and top sheet were changed. The flap was then gently closed with interrupted 4-0 nylon sutures, combination of simple and horizontal mattress stitches were placed for well-formed flap. Next, the clawtoe deformities were dressed with a 15 blade scalpel incision in the plantar proximal flexion crease of the second and third toes respectively with a transverse incision made with 15 blade scalpel just through the skin and then careful dissection was performed of the soft tissues with a tenotomy scissor and Ragnell rakes to expose the flexor tendons of the second and third toes respectively. Next, a tenotomy scissor was then used to transversely cut the flexor tendons of the second and third toes respectively then releasing the flexor contractures. The more supple contour and position of the second and third toes were noted. Gentle osteoclasis was then performed of the proximal interphalangeal joints to relax the flexion contractures of the joint. Improved resting position was noted. A final irrigation performed with sterile normal saline with bacitracin with pulsatile lavage of the second and third toes and then incisions were then closed with interrupted 4-0 nylon sutures. A sterile compressive forefoot dressing was applied, overwrapped with Coban. Tourniquet was released. The patient was awakened and taken to recovery in stable condition. I attest to the content of the Intraoperative Record and any orders documented therein. Any exception s are noted below.
[2019-01-26] MEDS: ALFUZOSIN HCL 10 MG TAB PO SCH (21:25)
[2019-01-26] MEDS: ACETAMINOPHEN 500 MG TAB PO PRN (22:43)
[2019-01-27] MEDS ORDERED: HYDROmorphone INJ 0.5 MG/0.5 ML SYR IV PRN (00:20)
[2019-01-27] MEDS: TRAMADOL HCL 50 MG TABLET PO PRN ×2 (00:30→08:52)
[2019-01-27 05:16] LABS: Hematocrit (blood only) 22.9 % (42-52); Hemoglobin 7.5 g/dL (14.0-18.0); Mean Corpuscular Hemoglobin 28.2 pg (25-34); Mean Corpuscular Hgb Conc 32.8 g/dL (32-36); Mean Corpuscular Volume 86.1 fL (80-100); Platelet Count 215 K/uL (130-400); RDW Coefficient of Variation 14.5 % (11.5-14.5); RDW Standard Deviation 45.2 fL (36.4-46.3); Red Blood Count 2.66 M/uL (4.7-6.1); White Blood Count 6.23 K/uL (4.8-10.8)
[2019-01-27 05:53] LABS: BUN Creatinine Ratio 19.1 (10-20); Creatinine Clr Calc Pharmacy 29.6 ml/min; Est GFR (African American) 27.9; Est GFR (Non-African American) 24.1; Potassium 4.2 mmol/L (3.5-5.1)
[2019-01-27] MEDS: CALCITRIOL 0.25 MCG CAPSULE PO SCH (08:52)
[2019-01-27] MEDS: SEVELAMER HCL 800 MG TABLET PO SCH ×3 (08:52→16:01)
[2019-01-27] MEDS: AMLODIPINE BESYLATE 5 MG TAB PO SCH (08:53)
[2019-01-27] MEDS: ALLOPURINOL 100 MG TAB PO SCH (08:53)
[2019-01-27] MEDS: GABAPENTIN 400 MG CAP PO SCH ×2 (08:53→21:29)
[2019-01-27] MEDS: CHOLECALCIFEROL 1,000 UNITS TAB PO SCH (08:53)
[2019-01-27] MEDS: FLUOXETINE HCL 20 MG CAP PO SCH (08:53)
[2019-01-27] MEDS: FLUTICASONE/SALMETEROL 250/50 (ADVAIR) 14 PUFF/1 INHALER INH SCH ×2 (08:54→21:29)
[2019-01-27] MEDS: SODIUM POLYSTYRENE SULFONATE 15G/60ML SUSP PO SCH (08:54)
[2019-01-27] MEDS: INSULIN ASPART 100 UNITS/ML 3 ML PEN SC SCH ×4 (08:57→21:30)
[2019-01-27] MEDS: DAPTOmycin 500 MG in SYRINGE 0 ML IV SCH (09:03)
--- NOTE | 2019-01-27 09:31 | Pharmacy Report ---
Pharmacy Glycemic Short Note 2 - Date of Service January 27, 2019 - Glycemic Short BSG Results (Last 24 hours): 01/26/19 01/26/19 01/26/19 10:45 12:13 17:36 Glucose POC Glucose 153 H 175 H 147 H 01/26/19 01/27/19 01/27/19 20:46 04:58 08:05 Glucose 86 POC Glucose 167 H 88 OUTPATIENT ANTIDIABETIC REGIMEN: * Lantus 15 units qAM * Humalog per sliding scale (1-5 units) * Patient's A1c result is likely somewhat unreliable in ESRD patients d/t interactions between the A1c analyzing technique and high levels of urea in ESRD, reduced RBC life span, iron deficiency anemia, and EPO administration. HbA1c > 7.5% in ESRD patient may overestimate the extent of hyperglycemia in ESRD patients. Risk Factors for Insulin Resistance: * Infection: toe osteo (receiving daptomycin currently) * Diet: T2DM * Surgery: POD #1 s/p right second toe partial amputation - Assessment & Plan ASSESSMENT: 01/27 * BSGs reasonably well-controlled yesterday ranging 120-175 mg/dL * Patient received 33 units of insulin yesterday (20 of which were basal) * Patient was NPO until dinner due to surgery * Patient received 15 units of Lantus this AM based on fasting BSG of 88 mg/dL * SCr remains elevated at 2.57 mg/dL 01/26 * Mr. Murillo's postprandial BSGs were above goal yesterday but fasting has improved. He received a total of 36 units of insulin yesterday. * He is scheduled for partial amputation of his toe this AM. AM Lantus was placed on hold by hospitalist. Should be able to resume this after surgery. * SCr increased from 1.9 -> 2.5 01/25 * 73 y/o male admitted for toe infection. He has a history of type 2 diabetes and pancreatic cancer, managed by an snowsport instructor in [place]. * He was admitted with hyperglycemia last evening and an additional dose of basal insulin was given because of severe hyperglycemia with outpatient basal dose already given in the AM. * BSGs have dropped significantly overnight. Fasting = 99 mg/dL this AM. Will hold off on basal this AM and resume with a scaled dose later today. Novolog parameters will also be loosened this AM, and then tightened back w/ dinner. PLAN FOR INPATIENT GLYCEMIC CONTROL: * Basal insulin - will change from scale to scheduled 20 units daily in the morning * Lantus 20 units qam * Bolus insulin - tighten current parameters for today (anticipate loosening tomorrow with increased Lantus dose) * NovoLog per scale ACHS or Q6hrs while NPO * Goal Range: Low 110 mg/dL - High 140 mg/dL * Correction Factor: 20 mg/dL/unit * Nutritional / Prandial insulin per carb ratio of 1 unit per 6 grams CHO consumed PLAN FOR DISCHARGE: * A1c unreliable in the setting of CKD * Recommend to resume outpatient regimen on discharge, continuing f/u with outpatient snowsport instructor
--- NOTE | 2019-01-27 09:42 | Orthopedic Progress Note ---
Date of Service January 27, 2019 Assessment & Plan (1) Diabetic ulcer of toe of right foot associated with type 2 diabetes mellitus: POD #1 s/p 1. Right foot second toe partial amputation including the distal phalanx. 2. Right second toe flexor tenotomy. 3. Right third toe flexor tenotomy. Dressing changed today. Discussed daily dressing changes for the next 2-3 days. Heel WB only on the RLE. D/C planning--per medicine. (2) MRSA (methicillin resistant Staphylococcus aureus) infection: Subjective Pain controlled right foot. No complaints. Denies CP, SOB, LH, fever. Physical Exam 2 Constitutional: WD/WN, vitals as above Musculoskeletal: Right foot: Well approximated 2nd toe partial amp site. Moderate blood on gauze dressing during dressing change. Well approximated plantar 2nd/3rd toe incisions. No erythema. Psychiatric: A+Ox3, euthymic affect (Sitting in chair in his room) Results & Data Vital Signs (Past 12 Hours) Vital Signs Temp Pulse Resp BP Pulse Ox 01/27/19 07:08 36.7 C 78 16 121/54 L 98 01/27/19 04:10 36.7 C 79 18 115/52 L 97 01/26/19 22:45 37.2 C 82 18 125/62 95
--- NOTE | 2019-01-27 15:19 | Infectious Disease Progress Nt ---
Date of Service January 27, 2019 Assessment & Plan (1) Diabetic ulcer of toe of right foot associated with type 2 diabetes mellitus: 73-year-old diabetic male with diabetic toe ulcer with secondary infection with MRSA, now status post partial amputation. For now, patient should be continued on IV daptomycin. Length of antibiotics will be determined by clinical response and healing. Limited oral options given that isolate is resistant to clindamycin, Bactrim, and tetracycline. Only available oral alternative would be linezolid. May be able to transition to this in the next day or 2 if patient continues to improve. Will follow. (2) MRSA (methicillin resistant Staphylococcus aureus) infection: (3) Streptococcal infection group B: Subjective Patient seen in follow-up for infected diabetic toe ulcer. Offers no new complaints today. Pain is controlled. Remains afebrile. Tolerating antibiotic without apparent difficulty. Review of Systems Review of Systems: All systems reviewed & are unremarkable except as noted in HPI & below Physical Exam Constitutional: WD/WN, vitals as above comfortable; no acute distress Eyes: PERRL, conjunctivae normal, anicteric sclerae ENMT: external ear and nose normal, oropharynx normal Neck: trachea midline, no thyromegaly neck nontender Respiratory: normal respiratory effort, lungs clear to auscultation normal percussion; does not use accessory muscles Cardiovascular: Rate/Rhythm: regular rate and regular rhythm Heart Sounds: normal S1 and normal S2; no gallop, no murmur and no cardiac rub Vessels: normal peripheral pulses; no JVD Gastrointestinal (Abdomen): normal bowel sounds, soft, nontender, no hepatosplenomegaly Musculoskeletal: no cyanosis or clubbing, extremities motor strength 5/5 Spine: thoracic spine normal to inspection and lumbar spine normal to inspection; no cervical spinal tenderness Skin: no rashes, warm and dry normal turgor and + wound (Surgical dressing intact right foot) Neurologic: moves all extremities and awake; no focal motor deficits Psychiatric: A+Ox3, euthymic affect Orientation: cooperative Lymphatic: no cervical or axillary lymphadenopathy no inguinal lymphadenopathy Results & Data Vital Signs (Past 12 Hours) Vital Signs Temp Pulse Resp BP Pulse Ox 01/27/19 15:14 36.9 C 82 18 125/68 99 01/27/19 07:08 36.7 C 78 16 121/54 L 98 01/27/19 04:10 36.7 C 79 18 115/52 L 97 Laboratory Results Short CBC 01/27/19 Range/Units 04:58 WBC 6.23 (4.8-10.8) K/uL Hgb 7.5 L (14.0-18.0) g/dL Hct 22.9 L (42-52) % Plt Count 215 (130-400) K/uL BMP 01/27/19 04:58 Sodium 139 Potassium 4.2 Chloride 107 Carbon Dioxide 25 BUN 49 H Creatinine 2.57 H Glucose 86 Calcium 8.0 L Diagnostic Findings Microbiology 01/24/19 17:55 Toe,Right Second Gram Stain - Final 01/24/19 17:55 Toe,Right Second Wound Culture - Preliminary Staph aureus MRSA Group B Beta Strep PG Care Time/CCT Total # of Minutes Spent Total Time Spent with Patient: Total time spent is greater than 50% in coordination of care (as documented) at patient's floor/unit and/or counseling patient:
--- NOTE | 2019-01-27 15:28 | Hospitalist Progress Note ---
Date of Service January 27, 2019 Assessment & Plan (1) Diabetic ulcer of toe of right foot associated with type 2 diabetes mellitus: Present on admission with worsening right second toe foot ulcer Failed outpatient therapy with Keflex Xray of foot showed operative changes consistent with resection distal phalanx great toe as well as a small component ductal aspect of the proximal phalanx. No additional lytic or blastic process Afebrile, no leukocytosis, ESR greater than 90 Wound culture grew staph aureus MRSA Antibiotics changed to IV dapto ID is on board. Will need to determine duration of iv antibiotic and plan for PICC placement prior to discharge Ortho on board. S/P Right foot second toe partial amputation yesterday Wound dressing per Ortho team Pain controlled (2) IDDM (insulin dependent diabetes mellitus): A1c of 7.8 in Dec 2018 Glycemic coverage recently adjusted by motorcycle subassembly repairer at [facility] due to neuroendocrine carcinoma of pancreas Pharmacy on board for glycemic management Monitor BS (3) Neuroendocrine carcinoma of pancreas: With mets to liver s/p chemoembolization in past Follows with Dr. Huynh [facility] [place] (4) CKD (chronic kidney disease), stage IV: Creatinine 1.99 on admission (baseline creatinine btw 2 to 2.2) Creatinine 2.57 today increasing since admission Continue to hold torsemide Start gentle IV fluids Follows with Dr. Clancy in clinic Continue calcitriol, sevelamer Check BMP in am (5) Anemia: Hgb of 8.1 yesterday preop (baseline ~9) Hemoglobin 7.5 today. No active bleeding Will monitor H/H for now and reassess with CBC in AM (6) Diastolic heart failure: Appears euvolemic Hold Torsemide today due to increase in creatinine Stable (7) Hypertension: BP stable Continue amlodipine Hold torsemide (8) Depression: Continue SSRI (9) Hyperparathyroidism: Continue calcitriol (10) HLD (hyperlipidemia): Will hold statin while on Dapto DVT Ppx: SCDs in setting of anemia, possible procedure Code status: DNR Dispo: Continue monitor closely Subjective Patient seen and examined Reports leg pain is better controlled Denied any fevers, chills, nausea, vomiting Denied any abdominal pain, diarrhea Denied any dysuria, frequency, urgency Review of Systems Review of Systems: All systems reviewed and unremarkable except for mentioned above. Physical Exam Physical Exam: General: No acute distress and not ill appearing Eyes: PERRL, mild pallor, anicteric sclerae, EOM intact bilaterally ENMT: External ear and nose normal, oropharynx normal Neck: Normal visual inspection, no tracheal deviation, no swelling noted Respiratory: Normal respiratory effort, no respiratory distress, lungs clear to auscultation, no crackles and no wheezes Cardiovascular: Pulse is RRR. S1 S2, no murmur Chest (Breasts): Chest: normal inspection of chest Gastrointestinal (Abdomen): Abdomen is not distended, soft, non-tender to palpation, no guarding, no palpable hepatosplenomegaly, normal bowel sounds Musculoskeletal: Bandage dressing over right foot Neurologic: Alert and oriented x 3, No focal deficits Results & Data Vital Signs (Past 12 Hours) Vital Signs Temp Pulse Resp BP Pulse Ox 01/27/19 15:14 36.9 C 82 18 125/68 99 01/27/19 07:08 36.7 C 78 16 121/54 L 98 01/27/19 04:10 36.7 C 79 18 115/52 L 97 Laboratory Results Short CBC 01/27/19 Range/Units 04:58 WBC 6.23 (4.8-10.8) K/uL Hgb 7.5 L (14.0-18.0) g/dL Hct 22.9 L (42-52) % Plt Count 215 (130-400) K/uL BMP 01/27/19 04:58 Sodium 139 Potassium 4.2 Chloride 107 Carbon Dioxide 25 BUN 49 H Creatinine 2.57 H Glucose 86 Calcium 8.0 L
[2019-01-27] MEDS: SODIUM CHLORIDE 0.9% 1000ML 1,000 ML IV SCH (15:58)
[2019-01-27] MEDS: ALFUZOSIN HCL 10 MG TAB PO SCH (21:37)
[2019-01-28] MEDS: SODIUM CHLORIDE 0.9% 1000ML 1,000 ML IV SCH ×2 (04:39→17:19)
[2019-01-28 06:08] LABS: Creatinine Clr Calc Pharmacy 32.5 ml/min; Est GFR (African American) 31.3
[2019-01-28] MEDS: SODIUM POLYSTYRENE SULFONATE 15G/60ML SUSP PO SCH (08:54)
[2019-01-28] MEDS: SEVELAMER HCL 800 MG TABLET PO SCH ×3 (08:54→17:20)
[2019-01-28] MEDS: FLUTICASONE/SALMETEROL 250/50 (ADVAIR) 14 PUFF/1 INHALER INH SCH ×2 (08:54→21:22)
[2019-01-28] MEDS: ALLOPURINOL 100 MG TAB PO SCH (08:55)
[2019-01-28] MEDS: AMLODIPINE BESYLATE 5 MG TAB PO SCH (08:55)
[2019-01-28] MEDS: CHOLECALCIFEROL 1,000 UNITS TAB PO SCH (08:55)
[2019-01-28] MEDS: CALCITRIOL 0.25 MCG CAPSULE PO SCH (08:55)
[2019-01-28] MEDS: GABAPENTIN 400 MG CAP PO SCH ×2 (08:56→21:23)
[2019-01-28] MEDS: INSULIN GLARGINE SOLOSTAR 100 UNITS/ML 3 ML PEN SQ SCH (08:56)
[2019-01-28] MEDS: FLUOXETINE HCL 20 MG CAP PO SCH (08:56)
[2019-01-28] MEDS: INSULIN ASPART 100 UNITS/ML 3 ML PEN SC SCH ×4 (08:57→21:23)
[2019-01-28] MEDS: DAPTOmycin 500 MG in SYRINGE 0 ML IV SCH (09:03)
--- NOTE | 2019-01-28 11:04 | Pharmacy Report ---
Pharmacy Glycemic Short Note 2 - Date of Service January 28, 2019 - Glycemic Short BSG Results (Last 24 hours): 01/27/19 01/27/19 01/27/19 12:14 17:12 20:57 POC Glucose 221 H 149 H 141 H OUTPATIENT ANTIDIABETIC REGIMEN: * Lantus 15 units qAM * Humalog per sliding scale (1-5 units) * Patient's A1c result is likely somewhat unreliable in ESRD patients d/t interactions between the A1c analyzing technique and high levels of urea in ESRD, reduced RBC life span, iron deficiency anemia, and EPO administration. HbA1c > 7.5% in ESRD patient may overestimate the extent of hyperglycemia in ESRD patients. Risk Factors for Insulin Resistance: * Infection: toe osteo (receiving daptomycin currently) * Diet: T2DM * Surgery: POD #1 s/p right second toe partial amputation - Assessment & Plan ASSESSMENT: 01/28 * BSGs ranging 86-221 mg/dL yesterday * Patient received 38 units of insulin yesterday (15 of which were basal, 23 bolus) * SCr down from yesterday (2.57 -> 2.34 mg/dL) * Fasting BSG this AM of 114 mg/dL * CF/CR of 19/09 used for breakfast - patient received 7 units * Continues on daptomycin for treatment of a diabetic ulcer of right foot 01/27 * BSGs reasonably well-controlled yesterday ranging 120-175 mg/dL * Patient received 33 units of insulin yesterday (20 of which were basal) * Patient was NPO until dinner due to surgery * Patient received 15 units of Lantus this AM based on fasting BSG of 88 mg/dL * SCr remains elevated at 2.57 mg/dL 01/26 * Mr. Murillo's postprandial BSGs were above goal yesterday but fasting has improved. He received a total of 36 units of insulin yesterday. * He is scheduled for partial amputation of his toe this AM. AM Lantus was placed on hold by hospitalist. Should be able to resume this after surgery. * SCr increased from 1.9 -> 2.5 01/25 * 73 y/o male admitted for toe infection. He has a history of type 2 diabetes and pancreatic cancer, managed by an jewelsmith in [place]. * He was admitted with hyperglycemia last evening and an additional dose of basal insulin was given because of severe hyperglycemia with outpatient basal dose already given in the AM. * BSGs have dropped significantly overnight. Fasting = 99 mg/dL this AM. Will hold off on basal this AM and resume with a scaled dose later today. Novolog parameters will also be loosened this AM, and then tightened back w/ dinner. PLAN FOR INPATIENT GLYCEMIC CONTROL: * Basal insulin * Lantus 20 units qam * Bolus insulin - loosen parameters slightly due to increasing basal dose today * NovoLog per scale ACHS or Q6hrs while NPO * Goal Range: Low 110 mg/dL - High 140 mg/dL * Correction Factor: 25 mg/dL/unit * Nutritional / Prandial insulin per carb ratio of 1 unit per 8 grams CHO consumed PLAN FOR DISCHARGE: * A1c unreliable in the setting of CKD * Recommend to resume outpatient regimen on discharge, continuing f/u with outpatient jewelsmith
--- NOTE | 2019-01-28 12:57 | Orthopedic Progress Note ---
Date of Service January 28, 2019 Assessment & Plan (1) Diabetic ulcer of toe of right foot associated with type 2 diabetes mellitus: POD #2 s/p 1. Right foot second toe partial amputation including the distal phalanx. 2. Right second toe flexor tenotomy. 3. Right third toe flexor tenotomy. Dressing changed today. Daily dressing changes. Heel WB only on the RLE. D/C planning--per medicine. No further surgery needed at this time. Orthopedics will sign off. Instructions placed in the discharge EMR section. Please call with any questions. (2) MRSA (methicillin resistant Staphylococcus aureus) infection: Subjective Patient currently sitting up in the chair eating his lunch. He has no overt complaints at this point in time. Pain is controlled. Physical Exam Physical Exam: Dressings removed. Second toe amputation site has some erythema to it but little to no drainage. No purulence noted. Redressed with Adaptic, 4 x 4's, and Kerlix wrap. Results & Data Vital Signs (Past 12 Hours) Vital Signs Temp Pulse Resp BP Pulse Ox 01/28/19 07:25 36.9 C 77 15 144/54 H 97
--- NOTE | 2019-01-28 13:38 | Infectious Disease Progress Nt ---
Date of Service January 28, 2019 Assessment & Plan (1) Diabetic ulcer of toe of right foot associated with type 2 diabetes mellitus: 73-year-old diabetic male with diabetic toe ulcer with secondary infection with MRSA, now status post partial amputation. For now, patient should be continued on IV daptomycin. Length of antibiotics will be determined by clinical response and healing. Limited oral options given that isolate is resistant to clindamycin, Bactrim, and tetracycline. Only available oral alternative would be linezolid. However, patient taking fluoxetine, would have to be discontinued if linezolid to be utilized. Will discuss with all involved. Will follow. (2) MRSA (methicillin resistant Staphylococcus aureus) infection: (3) Streptococcal infection group B: Subjective Patient seen in follow-up for toe/foot infection status post partial amputation. Patient comfortable, offers no new Hand complaints. Remains afebrile. Cultures with MRSA and group B strep. Review of Systems Review of Systems: All systems reviewed & are unremarkable except as noted in HPI & below Physical Exam Constitutional: WD/WN, vitals as above comfortable; no acute distress Eyes: PERRL, conjunctivae normal, anicteric sclerae ENMT: external ear and nose normal, oropharynx normal Neck: trachea midline, no thyromegaly neck nontender Respiratory: normal respiratory effort, lungs clear to auscultation normal percussion; does not use accessory muscles Cardiovascular: Rate/Rhythm: regular rate and regular rhythm Heart Sounds: normal S1 and normal S2; no gallop, no murmur and no cardiac rub Vessels: normal peripheral pulses; no JVD Gastrointestinal (Abdomen): normal bowel sounds, soft, nontender, no hepatosplenomegaly Musculoskeletal: no cyanosis or clubbing, extremities motor strength 5/5 Spine: thoracic spine normal to inspection and lumbar spine normal to inspection; no cervical spinal tenderness Skin: no rashes, warm and dry normal turgor and + wound (Surgical dressing intact right foot) Neurologic: moves all extremities and awake; no focal motor deficits Psychiatric: A+Ox3, euthymic affect Orientation: cooperative Lymphatic: no cervical or axillary lymphadenopathy no inguinal lymphadenopathy Results & Data Vital Signs (Past 12 Hours) Vital Signs Temp Pulse Resp BP Pulse Ox 01/28/19 07:25 36.9 C 77 15 144/54 H 97 Laboratory Results BMP 01/28/19 05:06 Creatinine 2.34 H Diagnostic Findings Microbiology 01/24/19 17:55 Toe,Right Second Gram Stain - Final 01/24/19 17:55 Toe,Right Second Wound Culture - Final Staph aureus MRSA Group B Beta Strep PG Care Time/CCT Total # of Minutes Spent Total Time Spent with Patient: Total time spent is greater than 50% in coordination of care (as documented) at patient's floor/unit and/or counseling patient:
[2019-01-28] MEDS: POLYETHYLENE (MIRALAX) 17 GM PACK PO SCH (17:19)
--- NOTE | 2019-01-28 19:02 | Hospitalist Progress Note ---
Date of Service January 28, 2019 Assessment & Plan (1) Diabetic ulcer of toe of right foot associated with type 2 diabetes mellitus: Present on admission with worsening right second toe foot ulcer Failed outpatient therapy with Keflex Xray of foot showed operative changes consistent with resection distal phalanx great toe as well as a small component dorsal aspect of the proximal phalanx. No additional lytic or blastic process Wound culture growing staph aureus MRSA/group B streptococcus Antibiotics changed to IV dapto ID is on board. limited oral options given that isolate is resistant to clindamycin, Bactrim, and tetracycline. Only available oral alternative would be linezolid pt will need to be off SSRI /Fluoxetine( prozac ) for the duration of treatment ( high risk for serotonin syndrome ) Appreciate input from orthopedics POD #2 s/p Right foot second toe partial amputation including the distal phalanx. Dressing change today: Orthopedics team Surgical incision appears well healing, no purulent drainage Dressing applied with Adaptic, 4 x 4's, and Kerlix wrap. 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 [place]ynh [facility] [place] (4) CKD (chronic kidney disease), stage IV: Acute kidney injury in the setting of stage III CKD Creatinine 1.99 on admission (baseline creatinine btw 2 to 2.2) Torsemide discontinued, given gentle IV fluids Creatinine slowly improving Follows with Dr. Clancy in clinic Continue calcitriol, sevelamer Check BMP in am (5) Anemia: Hgb of 8.1 yesterday preop (baseline ~9) Hemoglobin 7.5 on 01/27/2019. No active bleeding Follow H&H, transfusion for hemoglobin less than 7 or for symptom (6) Diastolic heart failure: vol Status remains stable Hold Torsemide acute renal failure IV fluids will be discontinued creatinine at baseline (7) Hypertension: BP stable Continue amlodipine Hold torsemide for acute kidney injury (8) Depression: Continue SSRI (9) Hyperparathyroidism: Continue calcitriol (10) HLD (hyperlipidemia): Will hold statin while on Daptomycin DVT Ppx: SCD and teds Code status: DNR Dispo: Appreciate input from PT OT, patient may benefit with rehab, social service following for discharge Subjective Denies of any pain on his right foot. Patient comfortable, Remains afebrile. Physical Exam Constitutional: WD/WN, vitals as above comfortable; no acute distress Eyes: PERRL, conjunctivae normal, anicteric sclerae ENMT: external ear and nose normal, oropharynx normal Neck: trachea midline, no thyromegaly Respiratory: normal respiratory effort, lungs clear to auscultation Cardiovascular: Rate/Rhythm: regular rate and regular rhythm Heart Sounds: normal S1 and normal S2 Vessels: normal peripheral pulses; no JVD Gastrointestinal (Abdomen): normal bowel sounds, soft, nontender, no hepatosplenomegaly Musculoskeletal: no cyanosis or clubbing, extremities motor strength 5/5 Skin: no rashes, warm and dry normal turgor and + wound (Surgical dressing intact right foot) Psychiatric: A+Ox3, euthymic affect Orientation: cooperative Results & Data Vital Signs (Past 12 Hours) Vital Signs Temp Pulse Resp BP Pulse Ox 01/28/19 15:19 36.4 C L 88 16 167/73 H 99 01/28/19 07:25 36.9 C 77 15 144/54 H 97
[2019-01-28] MEDS: ALFUZOSIN HCL 10 MG TAB PO SCH (21:26)
[2019-01-29] MEDS: SODIUM CHLORIDE 0.9% 1000ML 1,000 ML IV SCH (06:42)
[2019-01-29] MEDS: FLUTICASONE/SALMETEROL 250/50 (ADVAIR) 14 PUFF/1 INHALER INH SCH ×2 (08:53→20:27)
[2019-01-29] MEDS: SEVELAMER HCL 800 MG TABLET PO SCH ×3 (08:54→17:59)
[2019-01-29] MEDS: CALCITRIOL 0.25 MCG CAPSULE PO SCH (08:54)
[2019-01-29] MEDS: GABAPENTIN 400 MG CAP PO SCH ×2 (08:54→20:27)
[2019-01-29] MEDS: AMLODIPINE BESYLATE 5 MG TAB PO SCH (08:54)
[2019-01-29] MEDS: CHOLECALCIFEROL 1,000 UNITS TAB PO SCH (08:54)
[2019-01-29] MEDS: FLUOXETINE HCL 20 MG CAP PO SCH (08:55)
[2019-01-29] MEDS: ALLOPURINOL 100 MG TAB PO SCH (08:55)
[2019-01-29] MEDS: POLYETHYLENE (MIRALAX) 17 GM PACK PO SCH (08:55)
[2019-01-29] MEDS: SODIUM POLYSTYRENE SULFONATE 15G/60ML SUSP PO SCH (08:56)
[2019-01-29 09:04] LABS: BUN Creatinine Ratio 24.1 (10-20); Calcium 8.3 mg/dl (8.5-10.1); Creatinine Clr Calc Pharmacy 40.9 ml/min; Est GFR (African American) 41.3; Est GFR (Non-African American) 35.6; Potassium 4.3 mmol/L (3.5-5.1)
[2019-01-29] MEDS: DAPTOmycin 500 MG in SYRINGE 0 ML IV SCH (09:08)
[2019-01-29] MEDS: INSULIN GLARGINE SOLOSTAR 100 UNITS/ML 3 ML PEN SQ SCH (09:11)
[2019-01-29] MEDS: INSULIN ASPART 100 UNITS/ML 3 ML PEN SC SCH ×4 (09:11→20:28)
--- NOTE | 2019-01-29 10:18 | Pharmacy Report ---
Pharmacy Glycemic Short Note 2 - Date of Service January 29, 2019 - Glycemic Short BSG Results (Last 24 hours): 01/28/19 01/28/19 01/28/19 08:35 12:24 17:17 Glucose POC Glucose 114 H 211 H 172 H 01/28/19 01/29/19 01/29/19 20:56 08:12 08:38 Glucose 104 H POC Glucose 179 H 119 H OUTPATIENT ANTIDIABETIC REGIMEN: * Lantus 15 units qAM * Humalog per sliding scale (1-5 units) * Patient's A1c result is likely somewhat unreliable in ESRD patients d/t interactions between the A1c analyzing technique and high levels of urea in ESRD, reduced RBC life span, iron deficiency anemia, and EPO administration. HbA1c > 7.5% in ESRD patient may overestimate the extent of hyperglycemia in ESRD patients. Risk Factors for Insulin Resistance: * Infection: toe osteo (receiving daptomycin currently) * Diet: T2DM * Surgery: POD #1 s/p right second toe partial amputation - Assessment & Plan ASSESSMENT: 01/29 * BSGs ranging 114-211 mg/dL yesterday * Patient received 45 units of insulin yesterday (20 of which were basal, 25 bolus) * SCr continues to trend downward (2.57 -> 2.23 -> 1.86 mg/dL) * Fasting BSG this AM of 119 mg/dL * Continues on daptomycin for treatment of a diabetic ulcer of right foot * Patient has history of hypoglycemia 01/25 * 73 y/o male admitted for toe infection. He has a history of type 2 diabetes and pancreatic cancer, managed by an outreach manager in [place]. * He was admitted with hyperglycemia last evening and an additional dose of basal insulin was given because of severe hyperglycemia with outpatient basal dose already given in the AM. * BSGs have dropped significantly overnight. Fasting = 99 mg/dL this AM. Will hold off on basal this AM and resume with a scaled dose later today. Novolog parameters will also be loosened this AM, and then tightened back w/ dinner. PLAN FOR INPATIENT GLYCEMIC CONTROL: * Basal insulin * Lantus 20 units qam * Bolus insulin - loosen current parameters (received lunch coverage at CF/CR of /) * NovoLog per scale ACHS or Q6hrs while NPO * Goal Range: Low 110 mg/dL - High 140 mg/dL * Correction Factor: 25 mg/dL/unit * Nutritional / Prandial insulin per carb ratio of 1 unit per 8 grams CHO consumed PLAN FOR DISCHARGE: * A1c unreliable in the setting of CKD * Recommend to resume outpatient regimen on discharge, continuing f/u with outpatient outreach manager
[2019-01-29 14:08] LABS: Hematocrit (blood only) 23.7 % (42-52); Hemoglobin 7.9 g/dL (14.0-18.0)
[2019-01-29] MEDS: LINEZOLID 600 MG TAB PO SCH ×2 (16:24→20:26)
--- NOTE | 2019-01-29 17:49 | Hospitalist Progress Note ---
Date of Service January 29, 2019 Assessment & Plan (1) Diabetic ulcer of toe of right foot associated with type 2 diabetes mellitus: Present on admission with worsening right second toe foot ulcer Failed outpatient therapy with Keflex Xray of foot showed operative changes consistent with resection distal phalanx great toe as well as a small component dorsal aspect of the proximal phalanx. No additional lytic or blastic process Wound culture growing staph aureus MRSA/group B streptococcus Antibiotics changed to IV dapto ID is on board. limited oral options given that isolate is resistant to clindamycin, Bactrim, and tetracycline. Only available oral alternative would be linezolid IV daptomycin discontinued Antibiotic changed to Zyvox 600 mg p.o. twice daily for 2 weeks pt will need to be off SSRI /Fluoxetine( prozac ) for the duration of treatment ( high risk for serotonin syndrome ) Appreciate input from orthopedics POD #3 s/p Right foot second toe partial amputation including the distal phalanx. Dressing change today: Orthopedics team Surgical incision appears well healing, no purulent drainage Dressing applied with Adaptic, 4 x 4's, and Kerlix wrap. 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 Huynh [facility] [place] (4) CKD (chronic kidney disease), stage IV: Acute kidney injury in the setting of stage III CKD Creatinine 1.99 on admission (baseline creatinine btw 2 to 2.2) Torsemide discontinued, given gentle IV fluids Creatinine improved to approximate baseline, 1.8 IV fluid discontinued Follows with Dr. Clancy in clinic Continue calcitriol, sevelamer Check BMP in am (5) Anemia: Hgb of 8.1 yesterday preop (baseline ~9) Hemoglobin 7.5 on 01/27/2019. No active bleeding Follow H&H, transfusion for hemoglobin less than 7 or for symptom (6) Diastolic heart failure: vol Status remains stable Hold Torsemide acute renal failure IV fluids will be discontinued as renal function improved at baseline Torsemide will be resumed on discharge to rehab (7) Hypertension: BP stable Continue amlodipine Torsemide kept on hold for acute kidney injury, which has resolved Diuretics will be continued on discharge to rehab (8) Depression: Continue SSRI (9) Hyperparathyroidism: Continue calcitriol (10) HLD (hyperlipidemia): Will hold statin while on Daptomycin DVT Ppx: SCD and teds Code status: DNR Dispo: Appreciate input from PT OT, Patient will need acute rehab, appreciate input from social service referral made for [facility] It is medically stable to be transferred to acute rehab tomorrow 01/31/2000 Subjective Offers no complaint, no fever or chills, no pain or discomfort on surgical site Physical Exam Constitutional: WD/WN, vitals as above comfortable; no acute distress Eyes: PERRL, conjunctivae normal, anicteric sclerae ENMT: external ear and nose normal, oropharynx normal Neck: trachea midline, no thyromegaly Respiratory: normal respiratory effort, lungs clear to auscultation Cardiovascular: Rate/Rhythm: regular rate and regular rhythm Heart Sounds: normal S1 and normal S2 Gastrointestinal (Abdomen): normal bowel sounds, soft, nontender, no hepatosp lenomegaly Musculoskeletal: no cyanosis or clubbing, extremities motor strength 5/5 Skin: no rashes, warm and dry normal turgor and + wound (Surgical dressing intact right foot) Neurologic: moves all extremities and awake; no focal motor deficits Psychiatric: A+Ox3, euthymic affect Orientation: cooperative Results & Data Vital Signs (Past 12 Hours) Vital Signs Temp Pulse Resp BP Pulse Ox 01/29/19 14:55 36.7 C 81 17 124/61 99 01/29/19 07:24 36.6 C 81 18 136/57 L 97
[2019-01-29] MEDS: ALFUZOSIN HCL 10 MG TAB PO SCH (20:27)
[2019-01-29] MEDS: ACETAMINOPHEN 500 MG TAB PO PRN (23:50)
[2019-01-30 06:32] LABS: Hematocrit (blood only) 21.6 % (42-52); Hemoglobin 7.1 g/dL (14.0-18.0)
[2019-01-30 07:09] LABS: Creatinine Clr Calc Pharmacy 36.1 ml/min; Est GFR (African American) 35.4; Est GFR (Non-African American) 30.6
[2019-01-30] MEDS: FLUTICASONE/SALMETEROL 250/50 (ADVAIR) 14 PUFF/1 INHALER INH SCH ×2 (07:36→20:01)
[2019-01-30] MEDS: SODIUM POLYSTYRENE SULFONATE 15G/60ML SUSP PO SCH (07:36)
[2019-01-30] MEDS: GABAPENTIN 400 MG CAP PO SCH ×2 (07:37→20:01)
[2019-01-30] MEDS: ALLOPURINOL 100 MG TAB PO SCH (07:37)
[2019-01-30] MEDS: AMLODIPINE BESYLATE 5 MG TAB PO SCH (07:37)
[2019-01-30] MEDS: SEVELAMER HCL 800 MG TABLET PO SCH ×3 (07:37→18:17)
[2019-01-30] MEDS: CHOLECALCIFEROL 1,000 UNITS TAB PO SCH (07:37)
[2019-01-30] MEDS: CALCITRIOL 0.25 MCG CAPSULE PO SCH (07:38)
[2019-01-30] MEDS: LINEZOLID 600 MG TAB PO SCH ×2 (07:38→20:02)
[2019-01-30] MEDS: POLYETHYLENE (MIRALAX) 17 GM PACK PO SCH (07:39)
[2019-01-30] MEDS ORDERED: SODIUM CHLORIDE 0.9% 250 ML IV PRN (07:51)
--- NOTE | 2019-01-30 09:14 | Infectious Disease Progress Nt ---
Date of Service January 30, 2019 Assessment & Plan (1) Diabetic ulcer of toe of right foot associated with type 2 diabetes mellitus: 73-year-old diabetic male with diabetic toe ulcer with secondary infection with MRSA, now status post partial amputation. Patient now transition to oral Zyvox, will likely need in the range of 2 weeks of therapy. Will follow while in hospital. (2) MRSA (methicillin resistant Staphylococcus aureus) infection: (3) Streptococcal infection group B: Subjective Patient seen in follow-up for right foot infection. Offers no complaint, no fever or chills, no pain or discomfort on surgical site. Now on Zyvox. Review of Systems Review of Systems: All systems reviewed & are unremarkable except as noted in HPI & below Physical Exam Constitutional: WD/WN, vitals as above comfortable; no acute distress Eyes: PERRL, conjunctivae normal, anicteric sclerae ENMT: external ear and nose normal, oropharynx normal Neck: trachea midline, no thyromegaly neck nontender Respiratory: normal respiratory effort, lungs clear to auscultation normal percussion; does not use accessory muscles Cardiovascular: Rate/Rhythm: regular rate and regular rhythm Heart Sounds: normal S1 and normal S2; no gallop, no murmur and no cardiac rub Vessels: normal peripheral pulses; no JVD Gastrointestinal (Abdomen): normal bowel sounds, soft, nontender, no hepatosplenomegaly Musculoskeletal: no cyanosis or clubbing, extremities motor strength 5/5 Spine: thoracic spine normal to inspection and lumbar spine normal to inspection; no cervical spinal tenderness Skin: no rashes, warm and dry normal turgor and + wound (Surgical dressing intact right foot) Neurologic: moves all extremities and awake; no focal motor deficits Psychiatric: A+Ox3, euthymic affect Orientation: cooperative Lymphatic: no cervical or axillary lymphadenopathy no inguinal lymphadenopathy Results & Data Vital Signs (Past 12 Hours) Vital Signs Temp Pulse Resp BP Pulse Ox 01/30/19 07:42 87 127/66 97 01/30/19 07:22 36.7 C 83 17 112/52 L 94 01/29/19 23:28 36.8 C 69 18 157/64 H 99 Laboratory Results Short CBC 01/29/19 01/30/19 Range/Units 13:52 05:58 Hgb 7.9 L 7.1 L (14.0-18.0) g/dL Hct 23.7 L 21.6 L (42-52) % BMP 01/30/19 05:58 Creatinine 2.11 H Diagnostic Findings Microbiology 01/24/19 17:55 Toe,Right Second Gram Stain - Final 01/24/19 17:55 Toe,Right Second Wound Culture - Final Staph aureus MRSA Group B Beta Strep PG Care Time/CCT Total # of Minutes Spent Total Time Spent with Patient: Total time spent is greater than 50% in coordination of care (as documented) at patient's floor/unit and/or counseling patient:
[2019-01-30] MEDS: INSULIN GLARGINE SOLOSTAR 100 UNITS/ML 3 ML PEN SQ SCH (09:27)
[2019-01-30] MEDS: INSULIN ASPART 100 UNITS/ML 3 ML PEN SC SCH ×4 (09:29→21:27)
--- NOTE | 2019-01-30 10:58 | Pharmacy Report ---
Pharmacy Glycemic Short Note 2 - Date of Service January 30, 2019 - Glycemic Short BSG Results (Last 24 hours): 01/29/19 01/29/19 01/29/19 12:32 17:21 20:07 POC Glucose 141 H 124 H 211 H 01/30/19 08:42 POC Glucose 183 H OUTPATIENT ANTIDIABETIC REGIMEN: * Lantus 15 units qAM * Humalog per sliding scale (1-5 units) * Patient's A1c result is likely somewhat unreliable in ESRD patients d/t interactions between the A1c analyzing technique and high levels of urea in ESRD, reduced RBC life span, iron deficiency anemia, and EPO administration. HbA1c > 7.5% in ESRD patient may overestimate the extent of hyperglycemia in ESRD patients. Risk Factors for Insulin Resistance: * Infection: toe osteo * Diet: T2DM * Surgery: POD #4 s/p right second toe partial amputation - Assessment & Plan ASSESSMENT: 01/30 * BSGs ranging 119-211 mg/dL yesterday * Patient received 36 units of insulin yesterday (20 of which were basal, 16 bolus) * SCr up slightly today (1.86 -> 2.11 mg/dL) * Fasting BSG this AM of 183 mg/dL * Transitioned to linezolid PO for treatment of diabetic foot infection * Patient has history of hypoglycemia - will be conservative with adjustments (possibly increase Lantus tomorrow if fasting BSG remains elevated) 01/25 * 73 y/o male admitted for toe infection. He has a history of type 2 diabetes and pancreatic cancer, managed by an risk control product liability director in [place]. * He was admitted with hyperglycemia last evening and an additional dose of basal insulin was given because of severe hyperglycemia with outpatient basal dose already given in the AM. * BSGs have dropped significantly overnight. Fasting = 99 mg/dL this AM. Will hold off on basal this AM and resume with a scaled dose later today. Novolog parameters will also be loosened this AM, and then tightened back w/ dinner. PLAN FOR INPATIENT GLYCEMIC CONTROL: * Basal insulin * Lantus 20 units qam * Consider increase in Lantus tomorrow if fasting BSG elevated on 01/31/19 * Bolus insulin - tighten current parameters * NovoLog per scale ACHS or Q6hrs while NPO * Goal Range: Low 110 mg/dL - High 140 mg/dL * Correction Factor: 20 mg/dL/unit * Nutritional / Prandial insulin per carb ratio of 1 unit per 6 grams CHO consumed PLAN FOR DISCHARGE: * A1c unreliable in the setting of CKD * Recommend to resume outpatient regimen on discharge, continuing f/u with outpatient risk control product liability director
--- NOTE | 2019-01-30 16:58 | Hospitalist Progress Note ---
Date of Service January 30, 2019 Assessment & Plan (1) Diabetic ulcer of toe of right foot associated with type 2 diabetes mellitus: Present on admission with worsening right second toe foot ulcer Failed outpatient therapy with Keflex Xray of foot showed operative changes consistent with resection distal phalanx great toe as well as a small component dorsal aspect of the proximal phalanx. No additional lytic or blastic process Wound culture growing staph aureus MRSA/group B streptococcus Antibiotics changed to IV dapto ID is on board. limited oral options given that isolate is resistant to clindamycin, Bactrim, and tetracycline. Only available oral alternative would be linezolid IV daptomycin discontinued Antibiotic changed to Zyvox 600 mg p.o. twice daily for 2 weeks pt will need to be off SSRI /Fluoxetine( prozac ) for the duration of treatment ( high risk for serotonin syndrome ) Appreciate input from orthopedics POD #4 s/p Right foot second toe partial amputation including the distal phalanx. Dressing change today: Orthopedics team Surgical incision appears well healing, no purulent drainage Dressing applied with Adaptic, 4 x 4's, and Kerlix wrap. 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 Huynh [facility] [place] (4) CKD (chronic kidney disease), stage IV: Acute kidney injury in the setting of stage III CKD Creatinine 1.99 on admission (baseline creatinine btw 2 to 2.2) Torsemide discontinued, given gentle IV fluids Creatinine improved to approximate baseline, 1.8 IV fluid discontinued Follows with Dr. Clancy in clinic Continue calcitriol, sevelamer Check BMP in am (5) Anemia: Due to combination of anemia of chronic disease for advanced kidney disease/acute blood loss anemia and postoperative status Hb was 7.1 today, given 1 unit of PRBC transfusion Repeat H&H tomorrow (6) Diastolic heart failure: vol Status remains stable Hold Torsemide acute renal failure IV fluids will be discontinued as renal function improved at baseline Torsemide will be resumed on discharge to rehab (7) Hypertension: BP stable Continue amlodipine Torsemide kept on hold for acute kidney injury, which has resolved Diuretics will be continued on discharge to rehab (8) Depression: Continue SSRI (9) Hyperparathyroidism: Continue calcitriol (10) HLD (hyperlipidemia): Will hold statin while on Daptomycin DVT Ppx: SCD and teds Code status: DNR Dispo: Appreciate input from PT OT, Patient will need acute rehab, appreciate input from social service referral made for [facility] Rehab was kept on hold today for anemia PRBC transfusion Plan to discharge to [facility] for acute rehab tomorrow Subjective Continues to do well 1 unit of PRBC transfusion in a.m., hemoglobin 7.1 No evidence of bleeding noted Vitals remained stable patient denies of any dizzy spells lightheadedness Physical Exam Constitutional: WD/WN, vitals as above comfortable; no acute distress Eyes: PERRL, conjunctivae normal, anicteric sclerae ENMT: external ear and nose normal, oropharynx normal Neck: trachea midline, no thyromegaly neck nontender Respiratory: normal respiratory effort, lungs clear to auscultation normal percussion; does not use accessory muscles Cardiovascular: Rate/Rhythm: regular rate and regular rhythm Heart Sounds: normal S1 and normal S2 Vessels: normal peripheral pulses; no JVD Gastrointestinal (Abdomen): normal bowel sounds, soft, nontender, no hepatosplenomegaly Musculoskeletal: no cyanosis or clubbing, extremities motor strength 5/5 Spine: thoracic spine normal to inspection and lumbar spine normal to inspection; no cervical spinal tenderness Skin: no rashes, warm and dry normal turgor and + wound (Surgical dressing intact right foot) Neurologic: moves all extremities and awake; no focal motor deficits Psychiatric: A+Ox3, euthymic affect Orientation: cooperative Lymphatic: no cervical or axillary lymphadenopathy no inguinal lymphadenopathy Results & Data Vital Signs (Past 12 Hours) Vital Signs Temp Pulse Pulse Resp BP BP Pulse Ox 01/30/19 14:57 36.3 C L 88 20 150/65 H 97 01/30/19 13:24 36.9 C 82 18 160/68 H 97 01/30/19 12:00 36.7 C 80 16 155/68 H 01/30/19 11:00 36.7 C 80 16 131/69 100 01/30/19 10:30 37.0 C 83 17 137/66 97 01/30/19 10:15 36.9 C 82 17 152/63 H 97 01/30/19 10:02 36.7 C 82 18 152/65 H 98 01/30/19 07:42 87 127/66 97 01/30/19 07:22 36.7 C 83 17 112/52 L 94
[2019-01-30] MEDS: ALFUZOSIN HCL 10 MG TAB PO SCH (20:02)
--- NOTE | 2019-01-30 20:17 | Infectious Disease Progress Nt ---
Date of Service January 30, 2019 Assessment & Plan (1) Diabetic ulcer of toe of right foot associated with type 2 diabetes mellitus: 73-year-old diabetic male with diabetic toe ulcer with secondary infection with MRSA, now status post partial amputation. Patient now transition to oral Zyvox, will likely need in the range of 2 weeks of therapy. Will follow while in hospital. (2) MRSA (methicillin resistant Staphylococcus aureus) infection: (3) Streptococcal infection group B: Subjective Patient seen in follow-up for toe infection with diabetic ulcer. Pain is controlled, patient remains afebrile. Tolerating antibiotic without apparent difficulty so far. Review of Systems Review of Systems: All systems reviewed & are unremarkable except as noted in HPI & below Physical Exam Constitutional: WD/WN, vitals as above comfortable; no acute distress Eyes: PERRL, conjunctivae normal, anicteric sclerae ENMT: external ear and nose normal, oropharynx normal Neck: trachea midline, no thyromegaly neck nontender Respiratory: normal respiratory effort, lungs clear to auscultation normal percussion; does not use accessory muscles Cardiovascular: Rate/Rhythm: regular rate and regular rhythm Heart Sounds: normal S1 and normal S2; no gallop, no murmur and no cardiac rub Vessels: normal peripheral pulses; no JVD Gastrointestinal (Abdomen): normal bowel sounds, soft, nontender, no hepatosplenomegaly Musculoskeletal: no cyanosis or clubbing, extremities motor strength 5/5 Spine: thoracic spine normal to inspection and lumbar spine normal to inspection; no cervical spinal tenderness Skin: no rashes, warm and dry normal turgor and + wound (Surgical dressing intact right foot) Neurologic: moves all extremities and awake; no focal motor deficits Psychiatric: A+Ox3, euthymic affect Orientation: cooperative Lymphatic: no cervical or axillary lymphadenopathy no inguinal lymphadenopathy Results & Data Vital Signs (Past 12 Hours) Vital Signs Temp Pulse Pulse Resp BP BP Pulse Ox 01/30/19 14:57 36.3 C L 88 20 150/65 H 97 01/30/19 13:24 36.9 C 82 18 160/68 H 97 01/30/19 12:00 36.7 C 80 16 155/68 H 01/30/19 11:00 36.7 C 80 16 131/69 100 01/30/19 10:30 37.0 C 83 17 137/66 97 01/30/19 10:15 36.9 C 82 17 152/63 H 97 01/30/19 10:02 36.7 C 82 18 152/65 H 98 Laboratory Results Short CBC 01/30/19 Range/Units 05:58 Hgb 7.1 L (14.0-18.0) g/dL Hct 21.6 L (42-52) % BMP 01/30/19 05:58 Creatinine 2.11 H Diagnostic Findings Microbiology 01/24/19 17:55 Toe,Right Second Gram Stain - Final 01/24/19 17:55 Toe,Right Second Wound Culture - Final Staph aureus MRSA Group B Beta Strep PG Care Time/CCT Total # of Minutes Spent Total Time Spent with Patient: Total time spent is greater than 50% in coordination of care (as documented) at patient's floor/unit and/or counseling patient:
[2019-01-30] MEDS: ACETAMINOPHEN 500 MG TAB PO PRN (22:44)
[2019-01-31 06:23] LABS: Hematocrit (blood only) 23.3 % (42-52); Hemoglobin 7.6 g/dL (14.0-18.0)
[2019-01-31] MEDS: ALLOPURINOL 100 MG TAB PO SCH (08:17)
[2019-01-31] MEDS: CALCITRIOL 0.25 MCG CAPSULE PO SCH (08:18)
[2019-01-31] MEDS: POLYETHYLENE (MIRALAX) 17 GM PACK PO SCH (08:18)
[2019-01-31] MEDS: GABAPENTIN 400 MG CAP PO SCH (08:18)
[2019-01-31] MEDS: CHOLECALCIFEROL 1,000 UNITS TAB PO SCH (08:18)
[2019-01-31] MEDS: AMLODIPINE BESYLATE 5 MG TAB PO SCH (08:18)
[2019-01-31] MEDS: SEVELAMER HCL 800 MG TABLET PO SCH ×2 (08:18→12:32)
[2019-01-31] MEDS: SODIUM POLYSTYRENE SULFONATE 15G/60ML SUSP PO SCH (08:19)
[2019-01-31] MEDS: FLUTICASONE/SALMETEROL 250/50 (ADVAIR) 14 PUFF/1 INHALER INH SCH (08:19)
[2019-01-31] MEDS: LINEZOLID 600 MG TAB PO SCH (08:20)
[2019-01-31] MEDS: INSULIN ASPART 100 UNITS/ML 3 ML PEN SC SCH ×2 (09:29→13:38)
[2019-01-31] MEDS: INSULIN GLARGINE SOLOSTAR 100 UNITS/ML 3 ML PEN SQ SCH (09:29)
--- NOTE | 2019-01-31 09:30 | Pharmacy Report ---
Pharmacy Glycemic Short Note 2 - Date of Service January 31, 2019 - Glycemic Short BSG Results (Last 24 hours): 01/30/19 01/30/19 01/30/19 12:08 17:15 21:20 POC Glucose 205 H 91 112 H 01/31/19 08:33 POC Glucose 112 H OUTPATIENT ANTIDIABETIC REGIMEN: * Lantus 15 units qAM * Humalog per sliding scale (1-5 units) * Patient's A1c result is likely somewhat unreliable in ESRD patients d/t interactions between the A1c analyzing technique and high levels of urea in ESRD, reduced RBC life span, iron deficiency anemia, and EPO administration. HbA1c > 7.5% in ESRD patient may overestimate the extent of hyperglycemia in ESRD patients. Risk Factors for Insulin Resistance: * Infection: toe osteo * Diet: T2DM * Surgery: POD #5 s/p right second toe partial amputation - Assessment & Plan ASSESSMENT: 01/31 * BSGs ranging 91-205 mg/dL yesterday * Patient received 40 units of insulin yesterday (20 of which were basal, 20 bolus) * SCr up slightly yesterday (1.86 -> 2.11 mg/dL) - repeat SCr tomorrow * Fasting BSG this AM of 112 mg/dL * Continues on linezolid PO for treatment of diabetic foot infection * Patient has history of hypoglycemia - will be conservative with adjustments (possibly increase Lantus tomorrow if fasting BSG remains elevated) 01/25 * 73 y/o male admitted for toe infection. He has a history of type 2 diabetes and pancreatic cancer, managed by an button attaching machine operator in [place]. * He was admitted with hyperglycemia last evening and an additional dose of basal insulin was given because of severe hyperglycemia with outpatient basal dose already given in the AM. * BSGs have dropped significantly overnight. Fasting = 99 mg/dL this AM. Will hold off on basal this AM and resume with a scaled dose later today. Novolog parameters will also be loosened this AM, and then tightened back w/ dinner. PLAN FOR INPATIENT GLYCEMIC CONTROL: * Basal insulin * Lantus 20 units qam * Bolus insulin - continue current parameters * NovoLog per scale ACHS or Q6hrs while NPO * Goal Range: Low 110 mg/dL - High 140 mg/dL * Correction Factor: 20 mg/dL/unit * Nutritional / Prandial insulin per carb ratio of 1 unit per 6 grams CHO consumed PLAN FOR DISCHARGE: * A1c unreliable in the setting of CKD * Recommend to resume outpatient regimen on discharge, continuing f/u with outpatient button attaching machine operator
--- NOTE | 2019-01-31 13:00 | Discharge Summary ---
Date of Service January 31, 2019 Admission HPI Per Admitting Provider This is a 73-year-old male with a PMH of neuroendocrine tumor of pancreas with mets status post chemoembolization, IDDM 2, CKD IV, hypertension, hyperlipidemia, diastolic heart failure, asthma and other medical problems listed below who presents with right second toe foot ulcer x 5 days. Ulcer was initially blackened and patient was [place] [facility] [place] [facility] [place] and started on Keflex. Today, noted that ulcer had opened up and became red so she brought patient to ED for further evaluation. Has no feeling in feet due to diabetic neuropathy. No fever or chills. Follows with endocrinology in [place] for neuroendocrine tumor and recently had insulin dose adjusted. Afebrile hemodynamically stable in the ED. No leukocytosis. ESR greater than 90. Creatinine of 1.99 at baseline. Glucose 322. R foot XR with operative changes consistent with resection distal phalanx great toe as well as a small component ductal aspect of the proximal phalanx. No additional lytic or blastic process. Superimposed degenerative change. 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 Denies lightheadedness, visual changes, headache, chest pain, palpitations, shortness of breath, nausea, vomiting, abdominal pain, dysuria, diarrhea or constipation. Principal Diagnosis DIABETIC RIGHT TOE ULCER WITH MRSA INFECTION Discharge Exam Constitutional WD/WN, vitals as above comfortable; no acute distress Eyes PERRL, conjunctivae normal, anicteric sclerae ENMT external ear and nose normal, oropharynx normal Neck trachea midline, no thyromegaly neck nontender Respiratory normal respiratory effort, lungs clear to auscultation normal percussion; does not use accessory muscles Cardiovascular Rate/Rhythm: regular rate and regular rhythm Heart Sounds: normal S1 and normal S2 Vessels: normal peripheral pulses; no JVD Gastrointestinal (Abdomen) normal bowel sounds, soft, nontender, no hepatosplenomegaly Musculoskeletal no cyanosis or clubbing, extremities motor strength 5/5 Spine: thoracic spine normal to inspection and lumbar spine normal to inspection; no cervical spinal tenderness Skin no rashes, warm and dry normal turgor and + wound (Surgical dressing intact right foot) Neurologic moves all extremities and awake; no focal motor deficits Psychiatric A+Ox3, euthymic affect Orientation: cooperative Lymphatic no cervical or axillary lymphadenopathy no inguinal lymphadenopathy Discharge Data Allergies Allergy/AdvReac Type Severity Reaction Status Date / Time Sulfa (Sulfonamide Allergy Mild RASH Verified 01/24/19 19:28 Antibiotics) NSAIDS (Non-Steroidal Allergy Unknown "NO Verified 01/24/19 19:28 Anti-Inflamma NSAIDS"due to kidney disease Consultations 01/24/19 20:31 ED Decision to Admit Stat 01/25/19 08:00 Consult Orthopedic Surgery Routine 01/26/19 07:37 Consult Infectious Diseases Routine Procedures Performed Operation Date: 01/26/19 08:30 Actual Procedures p Right second toe partial amputation, Flexor tenotomy second and third right toes - Josse Rose DO Hospital Course (1) Diabetic ulcer of toe of right foot associated with type 2 diabetes mellitus: Present on admission with worsening right second toe foot ulcer Failed outpatient therapy with Keflex Xray of foot showed operative changes consistent with resection distal phalanx great toe as well as a small component dorsal aspect of the proximal phalanx. No additional lytic or blastic process Wound culture growing staph aureus MRSA/group B streptococcus Antibiotics changed to IV dapto ID is on board. limited oral options given that isolate is resistant to clindamycin, Bactrim, and tetracycline. Only available oral alternative would be linezolid IV daptomycin discontinued Antibiotic changed to Zyvox 600 mg p.o. twice daily for 2 weeks pt will need to be off SSRI /Fluoxetine( prozac ) for the duration of treatment ( high risk for serotonin syndrome ) Appreciate input from orthopedics POD #4 s/p Right foot second toe partial amputation including the distal phalanx. Dressing change today: Orthopedics team Surgical incision appears well healing, no purulent drainage Dressing applied with Adaptic, 4 x 4's, and Kerlix wrap. 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 Huynh [facility] [place] (4) CKD (chronic kidney disease), stage IV: Acute kidney injury in the setting of stage III CKD Creatinine 1.99 on admission (baseline creatinine btw 2 to 2.2) Torsemide discontinued, given gentle IV fluids Creatinine improved to approximate baseline, 1.8 IV fluid discontinued Follows with Dr. Clancy in clinic Continue calcitriol, sevelamer (5) Anemia: Due to combination of anemia of chronic disease for advanced kidney disease/acute blood loss anemia and postoperative status Hb was 7.1 today, given 1 unit of PRBC transfusion Repeat H&H remains stable: Globin 76/hematocrit 33.3 (6) Diastolic heart failure: vol Status remains stable Renal function improved to baseline Torsemide resumed on discharge (7) Hypertension: BP stable Continue amlodipine Torsemide resumed (8) Depression: Continue SSRI (9) Hyperparathyroidism: Continue calcitriol (10) HLD (hyperlipidemia): Will hold statin while on Daptomycin DVT Ppx: SCD and teds Code status: DNR Dispo: Appreciate input from PT OT, Patient will need acute rehab, appreciate input from social service referral made for [facility] Stable to be discharged to [facility] for acute rehab today Total Time Total Time Spent Total Time Spent (In Minutes): Approximately 45 minutes Total Time Includes: Examination of the Patient, Discharge Planning and Medication Reconciliation Discharge Plan Discharge Items Patient Disposition: Transfer Inpatient Rehab Fac Reason For Visit: DFU Discharge Diagnosis: DIABETIC RIGHT TOE ULCER WITH MRSA INFECTION Activity: As commented below Non-emergency contact: Primary Care Provider Call non-emergency contact if: you have any medication questions Follow-up/Referrals: Allen Casas MD [Physician] - (FOLLOW UP WITH DR CASAS IN 2 WEEKS AFTER COMPLETING ANTIBIOTIC) Josse Rose DO [Surgeon] - (Call to make an appointment for 1 week after discharge.) Deedee Perkins PA-C [Primary Care Provider] - Diet: Carb Consistent or DM2 and Heart Healthy Ambulatory Orders: Basic Metabolic Panel (Routine) Timeframe: 1 Week Location: Determined by Patient Ordered By: Carmen Christensen Complete Blood Count no Diff (Routine) Timeframe: 1 Week Location: Determined by Patient Ordered By: Carmen Christensen Addtl Attending Provider Instructions: Follow-up with orthopedics: Dr. Rose in 1 week HOSPITAL FOLLOW UP WITH FAMILY PHYSICIAN AFTER DISCHARGE FORM REHAB NEW MEDICATION:/MEDICATION CHANGE Take Zyvox 600 mg twice daily for 2 weeks-antibiotic for 2 infection Do not take Prozac/fluoxetine for 2 weeks when taking antibiotic/Zyvox-can cause severe side effect Take probiotics for 3 weeks when taking antibiotic Infectious disease Dr. Casas follow-up in 2 weeks after completion of antibiotic therapy Please call office to schedule an appointment You may take Tylenol 500 mg 12 times as needed for up to 3 times daily(take more than 6 tablets/3000 MG of Tylenol in 24 hours-can cause significant side effect) DO NOT TAKE: Aleve/Advil/Motrin/meloxicam/naproxen/ibuprofen/high-dose aspirin(NSAIDs group pain medication) -will cause damage to you kidney Lab work: Complete blood count in 1 week-to assess for anemia Basic metabolic panel in 1 week-to assess for chronic kidney disease Addtl Retail Loan Originator Assistant Provider Instructions: ACTIVITY RECOMMENDATIONS: Limitations: Heel weight bearing only if able to tolerate. SPECIAL CARE INSTRUCTIONS: * Some drainage onto the dressing is normal and is no cause for alarm. * Some swelling is natural especially after walking. * When resting, keep your foot elevated above the level of your heart. * Call [facility] if you notice: -Increased drainage -Fever over 101 degrees F -Severe constant pain BANDAGE: * Leave bandage/cast in place unless otherwise directed. * Keep bandage/cast dry at all times. PIN CARE: * Leave pins alone. * If pins come loose or fall out, notify physician. FOLLOW UP VISIT WITH DR. ROSE If appointment is not already scheduled: Please call [facility] after you get home today to schedule a follow-up appointment for [address] Rose at . Pending Studies at Discharge: No Stand-Alone Forms: My [facility] Skilled Items Patient informed of condition?: Yes DNR: No Discharge Level of Care: Acute rehab Communicable Disease: No Discharge Prognosis: Stable Lines: None Urinary Catheter: No Medications and DC Order Prescriptions: New linezolid 600 mg Tablet 600 mg PO BID 14 Days Qty: 28 RF: 0 Continued simvastatin 20 mg tablet 20 mg PO HS RF: 0 ranitidine HCl 150 mg tablet 150 mg PO HS RF: 0 Lantus Solostar U-100 Insulin 100 unit/mL (3 mL) insulin pen 15 unit subcut QAM RF: 0 sevelamer carbonate 800 mg tablet 800 mg PO TIDM RF: 0 calcitriol 0.25 mcg capsule 0.25 mcg PO QAM RF: 0 ergocalciferol (vitamin D2) 2,000 unit Tablet 2,000 unit PO QAM RF: 0 amlodipine 5 mg tablet 2.5 mg PO QAM RF: 0 alfuzosin 10 mg tablet extended release 24 hr 10 mg PO PM RF: 0 albuterol sulfate 90 mcg/actuation Hfa Aerosol Inhaler 2 puff INHALATION Q6H PRN (Reason: Shortness Of Breath Or Wheezing) RF: 0 fluticasone propion-salmeterol [Advair Diskus] 250-50 mcg/dose Blister With Device 1 inh INHALATION BID RF: 0 gabapentin 400 mg Capsule 400 mg PO BID RF: 0 allopurinol 100 mg tablet 100 mg PO QAM RF: 0 acetaminophen [Tylenol Extra Strength] 500 mg Tablet 500 mg PO Q6H PRN (Reason: Pain) RF: 0 insulin lispro [Humalog KwikPen Insulin] 100 unit/mL insulin pen subcut TIDM RF: 0 SPS (with sorbitol) 15-20 gram/60 mL suspension 60 ml PO QAM RF: 0 docusate sodium 100 mg capsule 100 mg PO BID PRN (Reason: Constipation) RF: 0 torsemide 20 mg tablet 20 mg PO BID RF: 0 Discontinued fluoxetine 20 mg Capsule 20 mg PO QAM RF: 0 cephalexin 500 mg capsule 500 mg PO Q6H RF: 0 Discharge Orders: Discharge Order (Routine); Ordered 01/31/19 Ordered By: Carmen Christensen Admission Data Admit Date/Time: 01/24/19 20:41 Attending Provider: Carmen Christensen Admit Provider: Souleymane Wong Primary Care Provider: Deedee Perkins Other Providers: Allen Casas ; Jorje Forrest ; Josse Rose ; Kwame Baron ; [facility] Other Interventions: Discharge Summary Assessment (RN) Last Done: 01/31/19 13:44 DC Date/Time DO NOT enter until pt leaves facility: 01/31/19 14:30
== END 2019-01-31 14:30 | DRG 617 ==
LOC: ED 17:08 → 3N 20:41 → SUATTDRO 20:41 → 3N 21:19

== ENCOUNTER 2019-03-09 16:57 | Inpatient (IN) ==
[2019-03-09] MEDS ORDERED: fentaNYL citrate 100 MCG/2 ML VIAL IV PRN (17:07)
[2019-03-09] MEDS ORDERED: ONDANSETRON INJ 2 MG/ML 2 ML VIAL IV STA (17:07)
[2019-03-09] MEDS ORDERED: SODIUM CHLORIDE 0.9% 500 ML IV SCH (17:15)
--- NOTE | 2019-03-09 17:29 | Emergency Department Note ---
Entered by Za Raines acting as a scribe for Abdirizak Osorio DO History of Present Illness General Chief complaint: Vomiting Stated complaint: VOMITING, FATIGUE Time Seen by Provider: 03/09/19 17:02 Source: patient and family () History of Present Illness Onset (ago): day(s) 3 Location: abdomen (vomiting) Pain Consistency: + constant Associated symptoms: + denies other symptoms (denies abd pain while resting but presents with discomfort upon palpation ), + headaches (constant last night and still slightly present), + nausea/vomiting (constant) and + other (constant diarrhea, decreased urine output) The patient is a 73 year old male not on blood thinners with a history of liver and pancreatic cancer, CHF, DM, kidney failure, CKD, kidney stones, HLD, hyperparathyroidism, falls, and HTN who presents to the Emergency Room with complaints of vomiting. The patient recently spent 2 weeks in rehabilitation for a post hospital stay and was released 3 days ago. Since this time he began constantly vomiting with his last episode at 3:00PM today. Additionally, he has been experiencing constant diarrhea with his last BM [employer]. also states that the patient was complaining of a constant headache last night which is still slightly present. also reports that his blood sugar has been "out of control" and she is unsure if he had a fever. He has also been experiencing decreased urine output. The patient denies abdominal pain while resting but presents with some discomfort upon palpation in the ED today. Of note, he does not have a history of C-diff or abdominal surgery. The patient also has a fistula but never needed dialysis. Additionally he was recently on antibiotics. The and the patient offer no further concerns at this time. Home Medications Home Medications Medication Instructions Recorded Confirmed Type calcitriol 0.25 mcg PO QAM 07/22/18 03/09/19 History sevelamer carbonate 1,600 mg PO TIDM 07/22/18 03/09/19 History simvastatin 20 mg PO HS 07/22/18 03/09/19 History alfuzosin 10 mg PO PM 11/13/18 03/09/19 History amlodipine 2.5 mg PO QAM 11/13/18 03/09/19 History albuterol sulfate 2 puff INHALATION Q6H PRN 11/14/18 03/09/19 History acetaminophen [Tylenol Extra 500 mg PO Q4 PRN 01/24/19 03/09/19 History Strength] allopurinol 100 mg PO QAM 01/24/19 03/09/19 History docusate sodium 100 mg PO BID PRN 01/24/19 03/09/19 History gabapentin 400 mg PO BID 01/24/19 03/09/19 History insulin lispro [Humalog KwikPen 0 unit SUBCUT TIDM 01/24/19 03/09/19 History Insulin] torsemide 40 mg PO QAM 01/24/19 03/09/19 History famotidine 10 mg PO DAILY 03/09/19 03/09/19 History fluoxetine 20 mg PO DAILY 03/09/19 03/09/19 History insulin glargine [Lantus Solostar 37 unit SUBCUT DAILY 03/09/19 03/09/19 History U-100 Insulin] lidocaine [Lidoderm] 1 patch TOPICAL DAILY 03/09/19 03/09/19 History loratadine 10 mg PO DAILY 03/09/19 03/09/19 History meclizine 25 mg PO TID PRN 03/09/19 03/09/19 History sodium polystyrene sulfonate 60 ml PO [id number] 03/09/19 03/09/19 History Allergies Allergy/AdvReac Type Severity Reaction Status Date / Time Sulfa (Sulfonamide Allergy Mild RASH Verified 03/09/19 18:33 Antibiotics) NSAIDS (Non-Steroidal Allergy Unknown "NO Verified 03/09/19 18:33 Anti-Inflamma NSAIDS"due to kidney disease Past Med/Surg History Medical History Anemia (Chronic) Asthma (Chronic) Chronic neck pain (Chronic) CKD (chronic kidney disease), stage IV (Chronic) Depression (Chronic) Diastolic heart failure (Chronic) HLD (hyperlipidemia) (Chronic) Hyperparathyroidism (Chronic) Hypertension (Chronic) IDDM (insulin dependent diabetes mellitus) (Chronic) Kidney stones Liver cancer (Chronic) 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 Pancreas cancer (Chronic) Surgical History H/O cervical spine surgery (Chronic) S/P foot surgery (Chronic) bone spur removed S/P knee surgery (Chronic) S/P lumbar spine operation (Chronic) Family History Other Breast cancer Diabetes No pertinent family history Social History Preferred Language: [place] Leonean Communication Ability: Effective Visual Impairment: No Limitations Hearing Ability: Normal Vehicle Care Specialist Required: No Beliefs That Will Affect Care: None marital status: Current Living Situation: Spouse Feels Safe at Home: Yes Smoking Status: Former smoker Tobacco Type: cigarettes, pipe and cigars ; Hx Alcohol Use: No Hx Substance Use: No Review of Systems See HPI for pertinent positives & negatives. and A total of 10 systems reviewed and were otherwise negative Physical Exam Vital Signs Vital Signs - 24 hr 03/09/19 16:59 03/09/19 17:31 03/09/19 17:32 Temperature 36.6 C Temperature Source Oral Pulse Rate 105 H 93 H 94 H Pulse Rate from SpO2 Sensor 94 H 94 H Pulse Rhythm Regular Pulse Strength Normal Respiratory Rate 20 15 12 Respiratory Effort / Characteristics Non-Labored Spontaneous Respiratory Depth Normal Respiratory Pattern Regular Blood Pressure 127/73 156/62 H Blood Pressure Mean 91 92 Blood Pressure Position Sitting Pulse Oximetry 93 98 97 Oxygen Delivery Method Room Air Sepsis Recent Fever Within 48 Hours No Sepsis New/Unexplained Change in Mental Status No Sepsis Action Taken by Nursing No Action Required 03/09/19 17:33 03/09/19 17:39 03/09/19 18:00 Temperature Temperature Source Pulse Rate 94 H 95 H 96 H Pulse Rate from SpO2 Sensor 94 H Pulse Rhythm Pulse Strength Respiratory Rate 13 20 7 L Respiratory Effort / Characteristics Respiratory Depth Respiratory Pattern Blood Pressure Blood Pressure Mean Blood Pressure Position Pulse Oximetry 95 93 Oxygen Delivery Method Room Air Sepsis Recent Fever Within 48 Hours Sepsis New/Unexplained Change in Mental Status Sepsis Action Taken by Nursing 03/09/19 18:08 03/09/19 18:09 03/09/19 18:30 Temperature Temperature Source Pulse Rate 95 H 94 H 96 H Pulse Rate from SpO2 Sensor 95 H 95 H 97 H Pulse Rhythm Pulse Strength Respiratory Rate 13 17 14 Respiratory Effort / Characteristics Respiratory Depth Respiratory Pattern Blood Pressure 142/69 H 143/66 H Blood Pressure Mean 107 106 Blood Pressure Position Pulse Oximetry 95 94 92 Oxygen Delivery Method Sepsis Recent Fever Within 48 Hours Sepsis New/Unexplained Change in Mental Status Sepsis Action Taken by Nursing 03/09/19 18:31 03/09/19 19:00 03/09/19 19:01 Temperature Temperature Source Pulse Rate 97 H 96 H 98 H Pulse Rate from SpO2 Sensor 97 H 96 H 98 H Pulse Rhythm Pulse Strength Respiratory Rate 12 11 L 9 L Respiratory Effort / Characteristics Respiratory Depth Respiratory Pattern Blood Pressure 175/71 H Blood Pressure Mean 115 Blood Pressure Position Pulse Oximetry 91 94 94 Oxygen Delivery Method Sepsis Recent Fever Within 48 Hours Sepsis New/Unexplained Change in Mental Status Sepsis Action Taken by Nursing 03/09/19 19:30 03/09/19 19:31 03/09/19 20:00 Temperature Temperature Source Pulse Rate 95 H 99 H 98 H Pulse Rate from SpO2 Sensor 95 H 99 H 98 H Pulse Rhythm Pulse Strength Respiratory Rate 15 20 14 Respiratory Effort / Characteristics Respiratory Depth Respiratory Pattern Blood Pressure 143/68 H 144/65 H Blood Pressure Mean 106 101 Blood Pressure Position Pulse Oximetry 94 96 93 Oxygen Delivery Method Sepsis Recent Fever Within 48 Hours Sepsis New/Unexplained Change in Mental Status Sepsis Action Taken by Nursing 03/09/19 20:01 03/09/19 20:30 03/09/19 20:31 Temperature Temperature Source Pulse Rate 99 H 96 H 95 H Pulse Rate from SpO2 Sensor 98 H Pulse Rhythm Pulse Strength Respiratory Rate 15 14 12 Respiratory Effort / Characteristics Respiratory Depth Respiratory Pattern Blood Pressure 138/61 Blood Pressure Mean 81 Blood Pressure Position Pulse Oximetry 94 Oxygen Delivery Method Sepsis Recent Fever Within 48 Hours Sepsis New/Unexplained Change in Mental Status Sepsis Action Taken by Nursing 03/09/19 21:00 03/09/19 21:01 03/09/19 21:30 Temperature Temperature Source Pulse Rate 95 H 96 H 97 H Pulse Rate from SpO2 Sensor Pulse Rhythm Pulse Strength Respiratory Rate 17 12 17 Respiratory Effort / Characteristics Respiratory Depth Respiratory Pattern Blood Pressure 142/66 H 132/67 Blood Pressure Mean 102 109 Blood Pressure Position Pulse Oximetry Oxygen Delivery Method Sepsis Recent Fever Within 48 Hours Sepsis New/Unexplained Change in Mental Status Sepsis Action Taken by Nursing 03/09/19 21:31 03/09/19 22:01 03/09/19 22:02 Temperature Temperature Source Pulse Rate 97 H 108 H 104 H Pulse Rate from SpO2 Sensor Pulse Rhythm Pulse Strength Respiratory Rate 17 18 14 Respiratory Effort / Characteristics Respiratory Depth Respiratory Pattern Blood Pressure 155/71 H Blood Pressure Mean 114 Blood Pressure Position Pulse Oximetry Oxygen Delivery Method Sepsis Recent Fever Within 48 Hours Sepsis New/Unexplained Change in Mental Status Sepsis Action Taken by Nursing 03/09/19 22:30 03/09/19 22:31 03/09/19 23:00 Temperature Temperature Source Pulse Rate 101 H 101 H 101 H Pulse Rate from SpO2 Sensor 100 H 101 H Pulse Rhythm Pulse Strength Respiratory Rate 13 16 16 Respiratory Effort / Characteristics Respiratory Depth Respiratory Pattern Blood Pressure 146/71 H Blood Pressure Mean 111 Blood Pressure Position Pulse Oximetry 94 93 Oxygen Delivery Method Sepsis Recent Fever Within 48 Hours Sepsis New/Unexplained Change in Mental Status Sepsis Action Taken by Nursing 03/09/19 23:01 03/09/19 23:30 03/10/19 00:00 Temperature Temperature Source Pulse Rate 102 H 98 H 102 H Pulse Rate from SpO2 Sensor 102 H 99 H 102 H Pulse Rhythm Pulse Strength Respiratory Rate 22 12 12 Respiratory Effort / Characteristics Respiratory Depth Respiratory Pattern Blood Pressure 175/72 H 166/75 H 150/74 H Blood Pressure Mean 92 107 125 Blood Pressure Position Pulse Oximetry 97 96 95 Oxygen Delivery Method Sepsis Recent Fever Within 48 Hours Sepsis New/Unexplained Change in Mental Status Sepsis Action Taken by Nursing GENERAL: Patient is awake alert in no acute distress patient is resting comfortably and showing no signs of anxiety EYES: The conjunctivae are clear. The pupils are round and reactive. EARS, NOSE, MOUTH AND THROAT: The nose is without any evidence of any deformity. Mucous membranes are dry. Tongue is midline. NECK: The neck is nontender and supple. RESPIRATORY: Normal respiratory effort is noted there is no evidence of wheezing rhonchi or rales CARDIOVASCULAR: Regular rate and rhythm noted there no murmurs rubs or gallops normal S1 normal S2. GASTROINTESTINAL: The abdomen is soft but moderately distended. There is diffuse tenderness to palpation but no guarding rigidity. MUSCULOSKELETAL/EXTREMITIES: There is no evidence of gross deformity full range of motion is noted in the hips and shoulders. SKIN: There is no obvious evidence of any rash. Trace pedal edema was noted bilaterally. NEUROLOGIC: Patient is awake alert and oriented x3 strength is symmetric patellar reflexes are 2+ bilaterally Course Course 170: Past medical records reviewed. The patient was evaluated in room A11B. A complete history and physical exam was performed. 1736: I checked on the patient and he states that he is feeling improved. 2020: I reevaluated the patient and he is feeling better. He will try to produce a stool sample. 2210: [facility]. The patient continues to vomit and the family expresses that they are not comfortable with him going home. The patient verbally expressed understanding and agreement of the treatment plan. The patient will be evaluated for further treatment. Administered Medications Discontinued Medications Amlodipine Besylate (Norvasc) 2.5 mg PO NOW ONE Stop: 03/09/19 22:41 Last Admin: 03/09/19 23:05 Dose: 2.5 mg Documented by: [id number] Sodium Chloride (Nss) 500 mls @ 999 mls/hr IV .Q31M JOSSUE Stop: 03/09/19 17:45 Last Infusion: 03/09/19 18:59 Dose: 0 mls/hr Documented by: [id number] Admin: 03/09/19 18:11 Dose: 999 mls/hr Documented by: [id number] Sodium Chloride (Nss 1000ml) 500 mls @ 999 mls/hr IV .Q31M ONE Stop: 03/09/19 20:46 Last Infusion: 03/09/19 23:06 Dose: 0 mls/hr Documented by: [id number] Admin: 03/09/19 20:31 Dose: 999 mls/hr Documented by: [id number] Ondansetron HCl (Zofran) 4 mg IV NOW STA Stop: 03/09/19 17:08 Last Admin: 03/09/19 18:11 Dose: 4 mg Documented by: [id number] Medical Decision Making Differential Diagnosis Differential diagnosis includes but is not limited to etiologies such as gastroenteritis, food borne illness, infections, appendicitis, diverticulitis, inflammatory bowel disease, obstruction, GI bleed, biliary pathology, as well as others were entertained. Medical Records Attestation: I reviewed the patient's medical records. Home Medications Current Medication List: was personally reviewed by me Laboratory Data Attestation: I reviewed the patient's lab results. Result diagrams: 03/09/19 18:05 03/09/19 17:07 Lab Results 03/09/19 03/09/19 03/09/19 Range/Units 17:07 17:07 17:33 WBC RBC Hgb POC Hgb (14.0-18.0) g/dl Hct POC Hct (42-52) % MCV MCH MCHC RDW Std Deviation RDW Coeff of José Miguel Plt Count MPV Immature Gran % (Auto) Neut % (Auto) Lymph % (Auto) [place] % (Auto) Eos % (Auto) Baso % (Auto) Immature Gran # (Auto) Neut # (Auto) Lymph # (Auto) [place] # (Auto) Eos # (Auto) Baso # (Auto) Absolute Nucleated RBC Nucleated RBC % (auto) Neutrophils % (Manual) Band Neutrophils % Lymphocytes % (Manual) Prolymphocyte % Reactive Lymphs % (Man) Monocytes % (Manual) Eosinophils % (Manual) Basophils % (Manual) Metamyelocytes % (Man) Myelocytes % (Man) Promyelocytes % (Man) Blast Cells % (Manual) Plasma Cell % (Manual) Other Cells % Nucleated RBC % Neutrophils # (Manual) Band Neutrophils # Total Absolute Neuts Lymphocytes # (Manual) Prolymphocyte # Reactive Lymphs # Total Abs Lymphocytes Monocytes # (Manual) Eosinophils # (Manual) Basophils # (Manual) Metamyelocytes # (Man) Myelocytes # (Manual) Promyelocytes # (Man) Blast Cells # (Man) Plasma Cell # (Manual) Other Cells # Nucleated RBCs # (Man) Hypersegmented Neuts Hyposegmented Neuts Hypogranular Neuts Large Granular Lymphs # Lrg Granular Lymphs Hairy Cells Smudge Cells Toxic Granulation Toxic Vacuolation Dohle Bodies Blanca Rods Platelet Estimate Hypogranular Platelets Clumped Platelets Giant Platelets Platelet Satelliting RBC Morphology Polychromasia Hypochromasia Poikilocytosis Basophilic Stippling Anisocytosis Microcytosis Macrocytosis Spherocytes Pappenheimer Bodies Sickle Cells Target Cells Tear Drop Cells Ovalocytes Stomatocytes Moyer-Connell Bodies Echinocytes Acanthocytes (Spur) Rouleaux RBC Agglutinates Schistocytes RBC Morph Comment ESR (0-14) mm/hr Sezary Cell PT 11.5 (9.0-12.0) Seconds INR 1.1 (0.9-1.1) APTT 26.5 (21.0-31.0) Seconds PTT Ratio 1.0 POC Sodium (135-144) mEq/L Sodium 138 (136-145) mmol/L POC Potassium (3.3-5.0) mEq/L Potassium 4.3 (3.5-5.1) mmol/L POC Chloride (101-112) mEq/L Chloride 101 (98-107) mmol/L Carbon Dioxide 31 (21-32) mmol/L POC Total CO2 (24-31) mEq/l Anion Gap 6.0 (3-11) POC Anion Gap (16-25) mmol/L POC BUN (7-18) mg/dl BUN 52 H (7-18) mg/dl Creatinine 2.04 H (0.6-1.4) mg/dl POC Creatinine (0.6-1.3) mg/dl Est Cr Clr Drug Dosing Not Reportable Est GFR ( Amer) 36.9 Est GFR (Non-Af Amer) 31.8 BUN/Creatinine Ratio 25.4 H (10-20) Glucose 214 H (70-99) mg/dl POC Glucose 218 H (70-99) POC Glucose (other) (70-99) mg/dl Calcium 8.9 (8.5-10.1) mg/dl POC Ioniz Calcium Shahida (1.12-1.32) mmol/l Magnesium 2.1 (1.8-2.4) mg/dl Total Bilirubin 0.3 (0.2-1) mg/dl AST 24 (15-37) U/L ALT 39 (12-78) U/L Alkaline Phosphatase 159 H (45-117) U/L Troponin I < 0.015 (0-0.045) ng/ml C-Reactive Protein 7.10 H (0-0.29) mg/dl Total Protein 7.5 (6.4-8.2) gm/dl Albumin 2.4 L (3.4-5.0) gm/dl Globulin 5.1 H (2.5-4.0) gm/dl Albumin/Globulin Ratio 0.5 L (0.9-2) Lipase 49 L (73-393) U/L TSH 3.490 (0.300-4.500) uIu/ml Urine Color Urine Appearance (Clear) Urine pH (4.5-7.5) Ur Specific [place] (1.000-1.030) Urine Protein (Negative) Urine Glucose (UA) (Negative) Urine Ketones (Negative) Urine Blood (Negative) Urine Nitrite (Negative) Urine Bilirubin (Negative) Urine Urobilinogen (Negative) Ur Leukocyte Esterase (Negative) Urine WBC (Auto) (0-5) /hpf Urine RBC (Auto) (0-4) /hpf U Hyaline Cast (Auto) (0-5) /lpf U Epithel Cells (Auto) (0-5) /lpf Urine Bacteria (Auto) (Negative) Stl C. diff Tox B Gene (Neg) 03/09/19 03/09/19 03/09/19 Range/Units 17:58 18:05 18:05 WBC Cancelled RBC Cancelled Hgb Cancelled POC Hgb 8.5 L (14.0-18.0) g/dl Hct Cancelled POC Hct 25 L (42-52) % MCV Cancelled MCH Cancelled MCHC Cancelled RDW Std Deviation Cancelled RDW Coeff of José Miguel Cancelled Plt Count Cancelled MPV Cancelled Immature Gran % (Auto) Cancelled Neut % (Auto) Cancelled Lymph % (Auto) Cancelled [place] % (Auto) Cancelled Eos % (Auto) Cancelled Baso % (Auto) Cancelled Immature Gran # (Auto) Cancelled Neut # (Auto) Cancelled Lymph # (Auto) Cancelled [place] # (Auto) Cancelled Eos # (Auto) Cancelled Baso # (Auto) Cancelled Absolute Nucleated RBC Cancelled Nucleated RBC % (auto) Cancelled Neutrophils % (Manual) Cancelled Band Neutrophils % Cancelled Lymphocytes % (Manual) Cancelled Prolymphocyte % Cancelled Reactive Lymphs % (Man) Cancelled Monocytes % (Manual) Cancelled Eosinophils % (Manual) Cancelled Basophils % (Manual) Cancelled Metamyelocytes % (Man) Cancelled Myelocytes % (Man) Cancelled Promyelocytes % (Man) Cancelled Blast Cells % (Manual) Cancelled Plasma Cell % (Manual) Cancelled Other Cells % Cancelled Nucleated RBC % Cancelled Neutrophils # (Manual) Cancelled Band Neutrophils # Cancelled Total Absolute Neuts Cancelled Lymphocytes # (Manual) Cancelled Prolymphocyte # Cancelled Reactive Lymphs # Cancelled Total Abs Lymphocytes Cancelled Monocytes # (Manual) Cancelled Eosinophils # (Manual) Cancelled Basophils # (Manual) Cancelled Metamyelocytes # (Man) Cancelled Myelocytes # (Manual) Cancelled Promyelocytes # (Man) Cancelled Blast Cells # (Man) Cancelled Plasma Cell # (Manual) Cancelled Other Cells # Cancelled Nucleated RBCs # (Man) Cancelled Hypersegmented Neuts Cancelled Hyposegmented Neuts Cancelled Hypogranular Neuts Cancelled Large Granular Lymphs Cancelled # Lrg Granular Lymphs Cancelled Hairy Cells Cancelled Smudge Cells Cancelled Toxic Granulation Cancelled Toxic Vacuolation Cancelled Dohle Bodies Cancelled Blanca Rods Cancelled Platelet Estimate Cancelled Hypogranular Platelets Cancelled Clumped Platelets Cancelled Giant Platelets Cancelled Platelet Satelliting Cancelled RBC Morphology Cancelled Polychromasia Cancelled Hypochromasia Cancelled Poikilocytosis Cancelled Basophilic Stippling Cancelled Anisocytosis Cancelled Microcytosis Cancelled Macrocytosis Cancelled Spherocytes Cancelled Pappenheimer Bodies Cancelled Sickle Cells Cancelled Target Cells Cancelled Tear Drop Cells Cancelled Ovalocytes Cancelled Stomatocytes Cancelled Moyer-Connell Bodies Cancelled Echinocytes Cancelled Acanthocytes (Spur) Cancelled Rouleaux Cancelled RBC Agglutinates Cancelled Schistocytes Cancelled RBC Morph Comment Cancelled ESR > 90 H (0-14) mm/hr Sezary Cell Cancelled PT (9.0-12.0) Seconds INR (0.9-1.1) APTT (21.0-31.0) Seconds PTT Ratio POC Sodium 138 (135-144) mEq/L Sodium (136-145) mmol/L POC Potassium 4.3 (3.3-5.0) mEq/L Potassium (3.5-5.1) mmol/L POC Chloride 100 L (101-112) mEq/L Chloride (98-107) mmol/L Carbon Dioxide (21-32) mmol/L POC Total CO2 30 (24-31) mEq/l Anion Gap (3-11) POC Anion Gap 13.0 L (16-25) mmol/L POC BUN 45 H (7-18) mg/dl BUN (7-18) mg/dl Creatinine (0.6-1.4) mg/dl POC Creatinine 2.0 H (0.6-1.3) mg/dl Est Cr Clr Drug Dosing Est GFR ( Amer) Est GFR (Non-Af Amer) BUN/Creatinine Ratio (10-20) Glucose (70-99) mg/dl POC Glucose (70-99) POC Glucose (other) 218 H (70-99) mg/dl Calcium (8.5-10.1) mg/dl POC Ioniz Calcium Shahida 1.09 L (1.12-1.32) mmol/l Magnesium (1.8-2.4) mg/dl Total Bilirubin (0.2-1) mg/dl AST (15-37) U/L ALT (12-78) U/L Alkaline Phosphatase (45-117) U/L Troponin I (0-0.045) ng/ml C-Reactive Protein (0-0.29) mg/dl Total Protein (6.4-8.2) gm/dl Albumin (3.4-5.0) gm/dl Globulin (2.5-4.0) gm/dl Albumin/Globulin Ratio (0.9-2) Lipase (73-393) U/L TSH (0.300-4.500) uIu/ml Urine Color Urine Appearance (Clear) Urine pH (4.5-7.5) Ur Specific [place] (1.000-1.030) Urine Protein (Negative) Urine Glucose (UA) (Negative) Urine Ketones (Negative) Urine Blood (Negative) Urine Nitrite (Negative) Urine Bilirubin (Negative) Urine Urobilinogen (Negative) Ur Leukocyte Esterase (Negative) Urine WBC (Auto) (0-5) /hpf Urine RBC (Auto) (0-4) /hpf U Hyaline Cast (Auto) (0-5) /lpf U Epithel Cells (Auto) (0-5) /lpf Urine Bacteria (Auto) (Negative) Stl C. diff Tox B Gene (Neg) 03/09/19 03/09/19 03/09/19 Range/Units 18:05 19:36 20:20 WBC 9.98 RBC 3.53 L Hgb 9.8 L POC Hgb (14.0-18.0) g/dl Hct 30.2 L POC Hct (42-52) % MCV 85.6 MCH 27.8 MCHC 32.5 RDW Std Deviation 41.7 RDW Coeff of José Miguel 13.3 Plt Count 218 MPV 13.2 H Immature Gran % (Auto) 0.1 Neut % (Auto) 75.7 Lymph % (Auto) 12.4 [place] % (Auto) 8.2 Eos % (Auto) 3.2 Baso % (Auto) 0.4 Immature Gran # (Auto) 0.01 Neut # (Auto) 7.55 H Lymph # (Auto) 1.24 [place] # (Auto) 0.82 H Eos # (Auto) 0.32 Baso # (Auto) 0.04 Absolute Nucleated RBC Nucleated RBC % (auto) Neutrophils % (Manual) Band Neutrophils % Lymphocytes % (Manual) Prolymphocyte % Reactive Lymphs % (Man) Monocytes % (Manual) Eosinophils % (Manual) Basophils % (Manual) Metamyelocytes % (Man) Myelocytes % (Man) Promyelocytes % (Man) Blast Cells % (Manual) Plasma Cell % (Manual) Other Cells % Nucleated RBC % Neutrophils # (Manual) Band Neutrophils # Total Absolute Neuts Lymphocytes # (Manual) Prolymphocyte # Reactive Lymphs # Total Abs Lymphocytes Monocytes # (Manual) Eosinophils # (Manual) Basophils # (Manual) Metamyelocytes # (Man) Myelocytes # (Manual) Promyelocytes # (Man) Blast Cells # (Man) Plasma Cell # (Manual) Other Cells # Nucleated RBCs # (Man) Hypersegmented Neuts Hyposegmented Neuts Hypogranular Neuts Large Granular Lymphs # Lrg Granular Lymphs Hairy Cells Smudge Cells Toxic Granulation Toxic Vacuolation Dohle Bodies Blanca Rods Platelet Estimate Hypogranular Platelets Clumped Platelets Giant Platelets Platelet Satelliting RBC Morphology Polychromasia Hypochromasia Poikilocytosis Basophilic Stippling Anisocytosis Microcytosis Macrocytosis Spherocytes Pappenheimer Bodies Sickle Cells Target Cells Tear Drop Cells Ovalocytes Stomatocytes Moyer-Connell Bodies Echinocytes Acanthocytes (Spur) Rouleaux RBC Agglutinates Schistocytes RBC Morph Comment ESR (0-14) mm/hr Sezary Cell PT (9.0-12.0) Seconds INR (0.9-1.1) APTT (21.0-31.0) Seconds PTT Ratio POC Sodium (135-144) mEq/L Sodium (136-145) mmol/L POC Potassium (3.3-5.0) mEq/L Potassium (3.5-5.1) mmol/L POC Chloride (101-112) mEq/L Chloride (98-107) mmol/L Carbon Dioxide (21-32) mmol/L POC Total CO2 (24-31) mEq/l Anion Gap (3-11) POC Anion Gap (16-25) mmol/L POC BUN (7-18) mg/dl BUN (7-18) mg/dl Creatinine (0.6-1.4) mg/dl POC Creatinine (0.6-1.3) mg/dl Est Cr Clr Drug Dosing Est GFR ( Amer) Est GFR (Non-Af Amer) BUN/Creatinine Ratio (10-20) Glucose (70-99) mg/dl POC Glucose (70-99) POC Glucose (other) (70-99) mg/dl Calcium (8.5-10.1) mg/dl POC Ioniz Calcium Shahida (1.12-1.32) mmol/l Magnesium (1.8-2.4) mg/dl Total Bilirubin (0.2-1) mg/dl AST (15-37) U/L ALT (12-78) U/L Alkaline Phosphatase (45-117) U/L Troponin I (0-0.045) ng/ml C-Reactive Protein (0-0.29) mg/dl Total Protein (6.4-8.2) gm/dl Albumin (3.4-5.0) gm/dl Globulin (2.5-4.0) gm/dl Albumin/Globulin Ratio (0.9-2) Lipase (73-393) U/L TSH (0.300-4.500) uIu/ml Urine Color Yellow Urine Appearance Clear (Clear) Urine pH 7.0 (4.5-7.5) Ur Specific [place] 1.014 (1.000-1.030) Urine Protein 1+ H (Negative) Urine Glucose (UA) Trace H (Negative) Urine Ketones Negative (Negative) Urine Blood Negative (Negative) Urine Nitrite Negative (Negative) Urine Bilirubin Negative (Negative) Urine Urobilinogen Negative (Negative) Ur Leukocyte Esterase Trace H (Negative) Urine WBC (Auto) 1-5 (0-5) /hpf Urine RBC (Auto) 0-4 (0-4) /hpf U Hyaline Cast (Auto) 1-5 (0-5) /lpf U Epithel Cells (Auto) 5-10 H (0-5) /lpf Urine Bacteria (Auto) Negative (Negative) Stl C. diff Tox B Gene Positive Cdiff Gene H (Neg) Imaging Data Radiologist's Impression: Radiology results as stated below per my review and the radiologist's interpretation: ABDOMEN AND PELVIS CT WITHOUT CONTRAST CT DOSE: 460.50 mGy.cm HISTORY: Generalized abdominal pain. Vomiting. TECHNIQUE: Multiaxial CT images of the abdomen and pelvis were performed without contrast. A dose lowering technique was utilized adhering to the principles of ALARA. COMPARISON STUDY: Abdomen and pelvis CT 07/22/2018. FINDINGS: Trace pericardial effusion, unchanged. Small cluster of tree-in-bud nodular opacities within the base of the right lower lobe, unchanged. This is likely chronic. Small patchy density within the base of the lingula. This favors atelectasis or scarring. Calcified granuloma seen within the lingula. No pneumoperitoneum. No pneumatosis. Posterior decompression within the lower lumbar spine. Old bilateral rib fractures. Tiny fat-containing umbilical hernia. Multiple hepatic lesions are again noted. These have slightly increased in size compared to prior study. Dominant lesion within the right hepatic lobe measures 3.3 cm, previously measuring 2.8 cm. Calcified nodules along the border of the left hepatic lobe remain unchanged and may represent postoperative/posttreatment changes. There is also a calcified nodule within the midline of the anterior omentum, unchanged. The gallbladder is mildly distended. No gallbladder wall thickening. Multiple tiny gallstones are present. The unenhanced liver and adrenal glands unremarkable. Bilateral perinephric edema, unchanged. No ureteral stones. No hydronephrosis. Normal bladder. The prostate gland is mildly en larged. Moderate stool within the rectum. No bowel wall thickening or obstruction. Colonic diverticulosis. No evidence for diverticulitis. Normal appendix. No significant change in the 4.2 x 3.9 cm gastrohepatic mass/lymph node. Decrease in size in the dominant lesion within the lower pole the left kidney. This currently measures 1.5 cm, previous measuring 2.8 cm. Therefore, this favors a benign lesion. Although, this is incompletely characterized on this noncontrast study. IMPRESSION: 1. Slight increase in size in the multiple hepatic lesions. This suggests progression of metastatic disease. 2. No significant change in the 4.2 x 3.9 cm gastrohepatic mass/lymph node. This is also suspicious for neoplastic/metastatic disease. 3. No bowel wall thickening or obstruction. 4. Normal appendix. 5. Colonic diverticulosis. 6. Cholelithiasis. The gallbladder remains mildly distended. No gallbladder wall thickening. 7. Trace pericardial effusion, unchanged. 8. Additional findings as described above. Electronically signed by: Paul Perez M.D. 03/09/2019 7:00 PM XR chest 1V portable HISTORY: weakness COMPARISON: Chest 11/13/2018. FINDINGS: No pneumothorax. No pleural effusions. Linear density at the left lung base is again noted. No evidence for pulmonary edema. The heart is normal in size. Nodular density within the right upper lobe is likely due to an osteophyte at the anterior first rib. This remains unchanged. IMPRESSION: No significant change compared to the prior study. No acute process. Left basilar densities favor subsegmental atelectasis. Electronically signed by: Paul Perez M.D. 03/09/2019 6:24 PM ECG Data Attestation: I personally reviewed and interpreted this ECG as follows: Indication: + vomiting Rate (beats per minute): 97 Rhythm: + normal sinus ECG Findings: + Other (no acute ST segments ); no PACs and no PVCs Comparison ECG Date: from (11/13/18) Change: no significant change Blood Pressure Blood Pressure Findings: Elevated blood pressure Blood Pressure Disposition: further management by hospitalist HAKEEM Narrative The patient is a 73-year-old male who presented to the emergency department for an evaluation of nausea vomiting. The patient has a history of metastatic prostate cancer. He has known metastatic disease to the liver. He started having nausea vomiting and diarrhea. He also has significant abdominal pain. The patient was treated with IV fluids and IV pain medication. He was also given IV antiemetics. He continues to have significant nausea and vomiting symptoms. I discussed the patient's laboratory and radiographic studies with him. Because of his ongoing symptoms I also discussed his case with the on-call [facility] hospitalist group. They have agreed to evaluate the patient in the emergency department for further management disposition. The patient was found to have a positive C. difficile test. The final is still pending but the patient was given a dose of vancomycin orally in the emergency department. Impression & Plan Abdominal pain, Nausea & vomiting, Metastasis from pancreatic cancer, Diarrhea, C. difficile colitis Discharge Plan Visit Data Chief Complaint: Vomiting Stated Complaint: VOMITING, FATIGUE ED Provider: Abdirizak Osorio Discharge Problem: Abdominal pain, Nausea & vomiting, Metastasis from pancreatic cancer, Diarrhea, C. difficile colitis Patient Disposition: Being Evaluated by Hospitalist Forms Stand Alone Forms: My [facility] [employer] Prescriptions Prescriptions: No Action simvastatin 20 mg tablet 20 mg PO HS RF: 0 sevelamer carbonate 800 mg tablet 1,600 mg PO TIDM RF: 0 calcitriol 0.25 mcg capsule 0.25 mcg PO QAM RF: 0 amlodipine 5 mg tablet 2.5 mg PO QAM RF: 0 alfuzosin 10 mg tablet extended release 24 hr 10 mg PO PM RF: 0 albuterol sulfate 90 mcg/actuation Hfa Aerosol Inhaler 2 puff INHALATION Q6H PRN (Reason: Shortness Of Breath Or Wheezing) RF: 0 gabapentin 400 mg Capsule 400 mg PO BID RF: 0 allopurinol 100 mg tablet 100 mg PO QAM RF: 0 acetaminophen [Tylenol Extra Strength] 500 mg Tablet 500 mg PO Q4 PRN (Reason: Pain) RF: 0 insulin lispro [Humalog KwikPen Insulin] 100 unit/mL insulin pen 0 unit subcut TIDM RF: 0 docusate sodium 100 mg capsule 100 mg PO BID PRN (Reason: Constipation) RF: 0 torsemide 20 mg tablet 40 mg PO QAM RF: 0 famotidine 10 mg Tablet 10 mg PO DAILY RF: 0 sodium polystyrene sulfonate 15 gram/60 mL Suspension 60 ml PO 3XWK RF: 0 meclizine 25 mg Tablet 25 mg PO TID PRN (Reason: dizzy) RF: 0 fluoxetine 20 mg Tablet 20 mg PO DAILY RF: 0 lidocaine [Lidoderm] 5 % Adhesive Patch,Medicated 1 patch TOPICAL DAILY RF: 0 loratadine 10 mg Tablet 10 mg PO DAILY RF: 0 Lantus Solostar U-100 Insulin 100 unit/mL (3 mL) Insulin Pen 37 unit SUBCUT DAILY RF: 0 Referrals Referrals: Deedee Perkins PA-C [Primary Care Provider] - Discharge Problem: Abdominal pain Qualifiers: Abdominal location: unspecified location Qualified Code(s): R10.9 - Unspecified abdominal pain Nausea & vomiting Qualifiers: Vomiting type: unspecified Vomiting Intractability: non-intractable Qualified Code(s): R11.2 - Nausea with vomiting, unspecified Diarrhea Qualifiers: Diarrhea type: unspecified type Qualified Code(s): R19.7 - Diarrhea, unspecified The scribe's documentation has been prepared under my direction and personally reviewed by me in its entirety. I confirm that the note above accurately reflects all work, treatment, procedures, and medical decision making performed by me.
[2019-03-09 18:10] LABS: iSTAT Hemoglobin 8.5 g/dl (14.0-18.0); iSTAT Ionized Calcium 1.09 mmol/l (1.12-1.32); iSTAT Potassium 4.3 mEq/L (3.3-5.0)
[2019-03-09 18:23] LABS: Alanine Aminotransferase 39 U/L (12-78); Albumin Globulin Ratio 0.5 (0.9-2); Albumin Level 2.4 gm/dl (3.4-5.0); Aspartate Aminotransferase 24 U/L (15-37); BUN Creatinine Ratio 25.4 (10-20); Bilirubin,Total 0.3 mg/dl (0.2-1); Blood Urea Nitrogen 52 mg/dl (7-18); Calcium 8.9 mg/dl (8.5-10.1); Carbon Dioxide 31 mmol/L (21-32); Chloride 101 mmol/L (98-107); Est GFR (African American) 36.9; Est GFR (Non-African American) 31.8; Globulin 5.1 gm/dl (2.5-4.0); Glucose 214 mg/dl (70-99); Lipase 49 U/L (73-393); Potassium 4.3 mmol/L (3.5-5.1); Sodium 138 mmol/L (136-145); Total Protein 7.5 gm/dl (6.4-8.2)
[2019-03-09 18:25] LABS: Basophils # (auto) 0.04 K/uL (0-0.2); Basophils % (auto) 0.4 %; Eosinophils # (auto) 0.32 K/uL (0-0.5); Eosinophils % (auto) 3.2 %; Hematocrit (blood only) 30.2 % (42-52); Hemoglobin 9.8 g/dL (14.0-18.0); Immature Granulocytes # (auto) 0.01 K/uL (0.00-0.02); Immature Granulocytes % (auto) 0.1 %; Lymphocytes # (auto) 1.24 K/uL (1.2-3.4); Lymphocytes % (auto) 12.4 %; Mean Corpuscular Hemoglobin 27.8 pg (25-34); Mean Corpuscular Hgb Conc 32.5 g/dL (32-36); Mean Corpuscular Volume 85.6 fL (80-100); Mean Platelet Volume 13.2 fL (7.4-10.4); Monocytes # (auto) 0.82 K/uL (0.11-0.59); Monocytes % (auto) 8.2 %; Neutrophils # (auto) 7.55 K/uL (1.4-6.5); Neutrophils % (auto) 75.7 %; Platelet Count 218 K/uL (130-400); RDW Coefficient of Variation 13.3 % (11.5-14.5); RDW Standard Deviation 41.7 fL (36.4-46.3); Red Blood Count 3.53 M/uL (4.7-6.1); White Blood Count 9.98 K/uL (4.8-10.8)
--- NOTE | 2019-03-09 18:25 | XRay Report ---
XR chest 1V portable HISTORY: weakness COMPARISON: Chest 11/13/2018. FINDINGS: No pneumothorax. No pleural effusions. Linear density at the left lung base is again noted. No evidence for pulmonary edema. The heart is normal in size. Nodular density within the right upper lobe is likely due to an osteophyte at the anterior first rib. This remains unchanged. IMPRESSION: No significant change compared to the prior study. No acute process. Left basilar densities favor sub segmental atelectasis. Electronically signed by: Paul Perez M.D. 03/09/2019 6:24 PM
[2019-03-09 18:26] LABS: Alkaline Phosphatase 159 U/L (45-117); Troponin I < 0.015 ng/ml (0-0.045)
[2019-03-09 19:01] LABS: INR 1.1 (0.9-1.1); Partial Thromboplastin Time 26.5 Seconds (21.0-31.0); Prothrombin Time 11.5 Seconds (9.0-12.0)
--- NOTE | 2019-03-09 19:02 | CT Scan Report ---
ABDOMEN AND PELVIS CT WITHOUT CONTRAST CT DOSE: 460.50 mGy.cm HISTORY: Generalized abdominal pain. Vomiting. TECHNIQUE: Multiaxial CT images of the abdomen and pelvis were performed without contrast. A dose lo wering technique was utilized adhering to the principles of ALARA. COMPARISON STUDY: Abdomen and pelvis CT 07/22/2018. FINDINGS: Trace pericardial effusion, unchanged. Small cluster of tree-in-bud nodular opacities withi n the base of the right lower lobe, unchanged. This is likely chronic. Small patchy density within th e base of the lingula. This favors atelectasis or scarring. Calcified granuloma seen within the lingu la. No pneumoperitoneum. No pneumatosis. Posterior decompression within the lower lumbar spine. Old b ilateral rib fractures. Tiny fat-containing umbilical hernia. Multiple hepatic lesions are again note d. These have slightly increased in size compared to prior study. Dominant lesion within the right he patic lobe measures 3.3 cm, previously measuring 2.8 cm. Calcified nodules along the border of the le ft hepatic lobe remain unchanged and may represent postoperative/posttreatment changes. There is also a calcified nodule within the midline of the anterior omentum, unchanged. The gallbladder is mildly distended. No gallbladder wall thickening. Multiple tiny gallstones are present. The unenhanced liver and adrenal glands unremarkable. Bilateral perinephric edema, unchanged. No ureteral stones. No hydr onephrosis. Normal bladder. The prostate gland is mildly enlarged. Moderate stool within the rectum. No bowel wall thickening or obstruction. Colonic diverticulosis. No evidence for diverticulitis. Norm al appendix. No significant change in the 4.2 x 3.9 cm gastrohepatic mass/lymph node. Decrease in siz e in the dominant lesion within the lower pole the left kidney. This currently measures 1.5 cm, previ ous measuring 2.8 cm. Therefore, this favors a benign lesion. Although, this is incompletely characte rized on this noncontrast study. IMPRESSION: 1. Slight increase in size in the multiple hepatic lesions. This suggests progression of metastatic d isease. 2. No significant change in the 4.2 x 3.9 cm gastrohepatic mass/lymph node. This is also suspicious f or neoplastic/metastatic disease. 3. No bowel wall thickening or obstruction. 4. Normal appendix. 5. Colonic diverticulosis. 6. Cholelithiasis. The gallbladder remains mildly distended. No gallbladder wall thickening. 7. Trace pericardial effusion, unchanged. 8. Additional findings as described above. Electronically signed by: Paul Perez M.D. 03/09/2019 7:00 PM
[2019-03-09 19:56] LABS: Appearance Urine Clear (Clear); Bacteria Urine Automated Negative (Negative); Bilirubin Urine Negative (Negative); Blood Urine Negative (Negative); Color Urine Yellow; Glucose Urine UA Trace (Negative); Ketones Urine Negative (Negative); Leukocyte Esterase Urine Trace (Negative); Nitrite Urine Negative (Negative); Protein Urine 1+ (Negative); RBC Urine Automated 0-4 /hpf (0-4); Specific Gravity Urine 1.014 (1.000-1.030); Urobilinogen Urine Negative (Negative)
[2019-03-09] MEDS ORDERED: SODIUM CHLORIDE 0.9% 1000ML 500 ML IV ONE (20:16)
[2019-03-09] MEDS ORDERED: AMLODIPINE BESYLATE 5 MG TAB PO ONE (22:40)
[2019-03-09 23:02] LABS: Magnesium 2.1 mg/dl (1.8-2.4)
--- NOTE | 2019-03-09 23:09 | History & Physical Report ---
Date of Service March 09, 2019 Assessment & Plan (1) Abdominal pain: Acute gastroenteritis Rule out C. 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 difficile IVF, clear liquids for now Hold home diuretic until patient euvolemic and keeping down food. Basal insulin adjusted for clear liquid diet for now, ISS BG goal [id number], carb count coverage Outpatient follow-up with patient's [facility] oncologist regarding progression of metastatic pancreatic neuroendocrine tumor PT OT eval DVT prophylaxis. Heparin subcu Full code History of Present Illness Chief Complaint: Abdominal pain, nausea, vomiting, diarrhea Primary Care Provider: Deedee Perkins PA-C History obtained from patient and records. 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 Patient discharged to rehab then back home. Patient subsequently admitted at [facility] from January 2019 for hyperglycemia, BSG 500s. Patient subsequently discharged to [facility] then discharged home 3 days ago after a 2-week rehab stay. Last night patient noted abdominal discomfort, nausea, emesis, dark watery diarrhea symptoms. No chest pain, no S OB, no fever, no chills. Patient brought to the ER for evaluation by . MEDICAL HISTORY: As above. Last outpatient [facility] Oncology (Dr. Cream) visit December,. Sunitinib contemplated for progressive metastatic liver mets from pancreatic neuroendocrine tumor as per note. SURGERIES: He had foot surgery, back surgery, neck surgery, carpal tunnel surgery, shoulder cyst surgery, FAMILY HISTORY: Breast cancer, diabetes PERSONAL AND SOCIAL HISTORY: Past tobacco abuse. No chronic intake of alcoholic beverages. Retired w[employer] worker. Allergies Allergy/AdvReac Type Severity Reaction Status Date / Time Sulfa (Sulfonamide Allergy Mild RASH Verified 03/09/19 18:33 Antibiotics) NSAIDS (Non-Steroidal Allergy Unknown "NO Verified 03/09/19 18:33 Anti-Inflamma NSAIDS"due to kidney disease Home Medications Home Medications Medication Instructions Recorded Confirmed Type calcitriol 0.25 mcg PO QAM 07/22/18 03/09/19 History sevelamer carbonate 1,600 mg PO TIDM 07/22/18 03/09/19 History simvastatin 20 mg PO HS 07/22/18 03/09/19 History alfuzosin 10 mg PO PM 11/13/18 03/09/19 History amlodipine 2.5 mg PO QAM 11/13/18 03/09/19 History albuterol sulfate 2 puff INHALATION Q6H PRN 11/14/18 03/09/19 History acetaminophen [Tylenol Extra 500 mg PO Q4 PRN 01/24/19 03/09/19 History Strength] allopurinol 100 mg PO QAM 01/24/19 03/09/19 History docusate sodium 100 mg PO BID PRN 01/24/19 03/09/19 History gabapentin 400 mg PO BID 01/24/19 03/09/19 History insulin lispro [Humalog KwikPen 0 unit SUBCUT TIDM 01/24/19 03/09/19 History Insulin] torsemide 40 mg PO QAM 01/24/19 03/09/19 History famotidine 10 mg PO DAILY 03/09/19 03/09/19 History fluoxetine 20 mg PO DAILY 03/09/19 03/09/19 History insulin glargine [Lantus Solostar 37 unit SUBCUT DAILY 03/09/19 03/09/19 History U-100 Insulin] lidocaine [Lidoderm] 1 patch TOPICAL DAILY 03/09/19 03/09/19 History loratadine 10 mg PO DAILY 03/09/19 03/09/19 History meclizine 25 mg PO TID PRN 03/09/19 03/09/19 History sodium polystyrene sulfonate 60 ml PO 3XWK 03/09/19 03/09/19 History Past Med/Surg History Medical History Anemia (Chronic) Asthma (Chronic) Chronic neck pain (Chronic) CKD (chronic kidney disease), stage IV (Chronic) Depression (Chronic) Diastolic heart failure (Chronic) HLD (hyperlipidemia) (Chronic) Hyperparathyroidism (Chronic) Hypertension (Chronic) IDDM (insulin dependent diabetes mellitus) (Chronic) Kidney stones Liver cancer (Chronic) 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 Pancreas cancer (Chronic) Surgical History H/O cervical spine surgery (Chronic) S/P foot surgery (Chronic) bone spur removed S/P knee surgery (Chronic) S/P lumbar spine operation (Chronic) Family History Other Breast cancer Diabetes No pertinent family history Social History Preferred Language: [place] Communication Ability: Effective Visual Impairment: No Limitations Hearing Ability: Normal Process Control Manager Required: No Beliefs That Will Affect Care: None marital status: Current Living Situation: Spouse Other Information That Helps Us Care for You: No Feels Safe at Home: Yes Safety Concerns: Feels Safe At This Time Smoking Status: Former smoker Tobacco Type: cigarettes, pipe and cigars ; Hx Alcohol Use: No Hx Substance Use: No Review of Systems Review of Systems: As per HPI, all 10 systems reviewed, all other ROS negative Physical Exam Physical Exam: GENERAL: Slightly uncomfortable, chronically ill, sad, wane, no respiratory distress SKIN: Pallor, warm HEENT: Partial alopecia, pink palpebral conjunctivae, no ptosis, dry buccal mucosa NECK : Supple, no tenderness CHEST : Decreased breath sounds , no tenderness HEART : Tachycardic, no obvious murmurs ABDOMEN: Some distention, nontender EXTREMITIES : Minimal LE swelling, no LE tenderness, toe amputation stump right foot NEUROLOGIC : Coherent, no facial asymmetry, no other gross focality Results & Data Vital Signs (Past 12 Hours) Vital Signs Temp Pulse Resp BP Pulse Ox 03/09/19 23:01 102 H 22 175/72 H 97 03/09/19 23:00 101 H 16 03/09/19 22:31 101 H 16 93 03/09/19 22:30 101 H 13 146/71 H 94 03/09/19 22:02 104 H 14 155/71 H 03/09/19 22:01 108 H 18 03/09/19 21:31 97 H 17 03/09/19 21:30 97 H 17 132/67 03/09/19 21:01 96 H 12 03/09/19 21:00 95 H 17 142/66 H 03/09/19 20:31 95 H 12 03/09/19 20:30 96 H 14 138/61 03/09/19 20:01 99 H 15 94 03/09/19 20:00 98 H 14 144/65 H 93 03/09/19 19:31 99 H 20 96 03/09/19 19:30 95 H 15 143/68 H 94 03/09/19 19:01 98 H 9 L 94 03/09/19 19:00 96 H 11 L 175/71 H 94 03/09/19 18:31 97 H 12 91 03/09/19 18:30 96 H 14 143/66 H 92 03/09/19 18:09 94 H 17 94 03/09/19 18:08 95 H 13 142/69 H 95 03/09/19 18:00 96 H 7 L 03/09/19 17:39 95 H 20 93 03/09/19 17:33 94 H 13 95 03/09/19 17:32 94 H 12 156/62 H 97 03/09/19 17:31 93 H 15 98 03/09/19 16:59 36.6 C 105 H 20 127/73 93 Laboratory Results Laboratory Results WBC 9.98 K/uL (4.8-10.8) 03/09/19 18:05 WBC Cancelled 03/09/19 18:05 RBC 3.53 M/uL (4.7-6.1) L 03/09/19 18:05 RBC Cancelled 03/09/19 18:05 Hgb 9.8 g/dL (14.0-18.0) L 03/09/19 18:05 Hgb Cancelled 03/09/19 18:05 POC Hgb 8.5 g/dl (14.0-18.0) L 03/09/19 17:58 Hct 30.2 % (42-52) L 03/09/19 18:05 Hct Cancelled 03/09/19 18:05 POC Hct 25 % (42-52) L 03/09/19 17:58 MCV 85.6 fL (80-100) 03/09/19 18:05 MCV Cancelled 03/09/19 18:05 MCH 27.8 pg (25-34) 03/09/19 18:05 MCH Cancelled 03/09/19 18:05 MCHC 32.5 g/dL (32-36) 03/09/19 18:05 MCHC Cancelled 03/09/19 18:05 RDW Std Deviation 41.7 fL (36.4-46.3) 03/09/19 18:05 RDW Std Deviation Cancelled 03/09/19 18:05 RDW Coeff of José Miguel 13.3 % (11.5-14.5) 03/09/19 18:05 RDW Coeff of José Miguel Cancelled 03/09/19 18:05 Plt Count 218 K/uL (130-400) 03/09/19 18:05 Plt Count Cancelled 03/09/19 18:05 MPV 13.2 fL (7.4-10.4) H 03/09/19 18:05 MPV Cancelled 03/09/19 18:05 Immature Gran % (Auto) 0.1 % 03/09/19 18:05 Immature Gran % (Auto) Cancelled 03/09/19 18:05 Neut % (Auto) 75.7 % 03/09/19 18:05 Neut % (Auto) Cancelled 03/09/19 18:05 Lymph % (Auto) 12.4 % 03/09/19 18:05 Lymph % (Auto) Cancelled 03/09/19 18:05 Chaves % (Auto) 8.2 % 03/09/19 18:05 Chaves % (Auto) Cancelled 03/09/19 18:05 Eos % (Auto) 3.2 % 03/09/19 18:05 Eos % (Auto) Cancelled 03/09/19 18:05 Baso % (Auto) 0.4 % 03/09/19 18:05 Baso % (Auto) Cancelled 03/09/19 18:05 Immature Gran # (Auto) 0.01 K/uL (0.00-0.02) 03/09/19 18:05 Immature Gran # (Auto) Cancelled 03/09/19 18:05 Neut # (Auto) 7.55 K/uL (1.4-6.5) H 03/09/19 18:05 Neut # (Auto) Cancelled 03/09/19 18:05 Lymph # (Auto) 1.24 K/uL (1.2-3.4) 03/09/19 18:05 Lymph # (Auto) Cancelled 03/09/19 18:05 [place] # (Auto) 0.82 K/uL (0.11-0.59) H 03/09/19 18:05 [place]aves # (Auto) Cancelled 03/09/19 18:05 Eos # (Auto) 0.32 K/uL (0-0.5) 03/09/19 18:05 Eos # (Auto) Cancelled 03/09/19 18:05 Baso # (Auto) 0.04 K/uL (0-0.2) 03/09/19 18:05 Baso # (Auto) Cancelled 03/09/19 18:05 Absolute Nucleated RBC Cancelled 03/09/19 18:05 Nucleated RBC % (auto) Cancelled 03/09/19 18:05 Neutrophils % (Manual) Cancelled 03/09/19 18:05 Band Neutrophils % Cancelled 03/09/19 18:05 Lymphocytes % (Manual) Cancelled 03/09/19 18:05 Prolymphocyte % Cancelled 03/09/19 18:05 Reactive Lymphs % (Man) Cancelled 03/09/19 18:05 Monocytes % (Manual) Cancelled 03/09/19 18:05 Eosinophils % (Manual) Cancelled 03/09/19 18:05 Basophils % (Manual) Cancelled 03/09/19 18:05 Metamyelocytes % (Man) Cancelled 03/09/19 18:05 Myelocytes % (Man) Cancelled 03/09/19 18:05 Promyelocytes % (Man) Cancelled 03/09/19 18:05 Blast Cells % (Manual) Cancelled 03/09/19 18:05 Plasma Cell % (Manual) Cancelled 03/09/19 18:05 Other Cells % Cancelled 03/09/19 18:05 Nucleated RBC % Cancelled 03/09/19 18:05 Neutrophils # (Manual) Cancelled 03/09/19 18:05 Band Neutrophils # Cancelled 03/09/19 18:05 Total Absolute Neuts Cancelled 03/09/19 18:05 Lymphocytes # (Manual) Cancelled 03/09/19 18:05 Prolymphocyte # Cancelled 03/09/19 18:05 Reactive Lymphs # Cancelled 03/09/19 18:05 Total Abs Lymphocytes Cancelled 03/09/19 18:05 Monocytes # (Manual) Cancelled 03/09/19 18:05 Eosinophils # (Manual) Cancelled 03/09/19 18:05 Basophils # (Manual) Cancelled 03/09/19 18:05 Metamyelocytes # (Man) Cancelled 03/09/19 18:05 Myelocytes # (Manual) Cancelled 03/09/19 18:05 Promyelocytes # (Man) Cancelled 03/09/19 18:05 Blast Cells # (Man) Cancelled 03/09/19 18:05 Plasma Cell # (Manual) Cancelled 03/09/19 18:05 Other Cells # Cancelled 03/09/19 18:05 Nucleated RBCs # (Man) Cancelled 03/09/19 18:05 Hypersegmented Neuts Cancelled 03/09/19 18:05 Hyposegmented Neuts Cancelled 03/09/19 18:05 Hypogranular Neuts Cancelled 03/09/19 18:05 Large Granular Lymphs Cancelled 03/09/19 18:05 # Lrg Granular Lymphs Cancelled 03/09/19 18:05 Hairy Cells Cancelled 03/09/19 18:05 Smudge Cells Cancelled 03/09/19 18:05 Toxic Granulation Cancelled 03/09/19 18:05 Toxic Vacuolation Cancelled 03/09/19 18:05 Dohle Bodies Cancelled 03/09/19 18:05 Blanca Rods Cancelled 03/09/19 18:05 Platelet Estimate Cancelled 03/09/19 18:05 Hypogranular Platelets Cancelled 03/09/19 18:05 Clumped Platelets Cancelled 03/09/19 18:05 Giant Platelets Cancelled 03/09/19 18:05 Platelet Satelliting Cancelled 03/09/19 18:05 RBC Morphology Cancelled 03/09/19 18:05 Polychromasia Cancelled 03/09/19 18:05 Hypochromasia Cancelled 03/09/19 18:05 Poikilocytosis Cancelled 03/09/19 18:05 Basophilic Stippling Cancelled 03/09/19 18:05 Anisocytosis Cancelled 03/09/19 18:05 Microcytosis Cancelled 03/09/19 18:05 Macrocytosis Cancelled 03/09/19 18:05 Spherocytes Cancelled 03/09/19 18:05 Pappenheimer Bodies Cancelled 03/09/19 18:05 Sickle Cells Cancelled 03/09/19 18:05 Target Cells Cancelled 03/09/19 18:05 Tear Drop Cells Cancelled 03/09/19 18:05 Ovalocytes Cancelled 03/09/19 18:05 Stomatocytes Cancelled 03/09/19 18:05 [place] Bodies Cancelled 03/09/19 18:05 Echinocytes Cancelled 03/09/19 18:05 Acanthocytes (Spur) Cancelled 03/09/19 18:05 Rouleaux Cancelled 03/09/19 18:05 RBC Agglutinates Cancelled 03/09/19 18:05 Schistocytes Cancelled 03/09/19 18:05 RBC Morph Comment Cancelled 03/09/19 18:05 ESR > 90 mm/hr (0-14) H 03/09/19 18:05 Sezary Cell Cancelled 03/09/19 18:05 PT 11.5 Seconds (9.0-12.0) 03/09/19 17:07 INR 1.1 (0.9-1.1) 03/09/19 17:07 APTT 26.5 Seconds (21.0-31.0) 03/09/19 17:07 PTT Ratio 1.0 03/09/19 17:07 POC Sodium 138 mEq/L (135-144) 03/09/19 17:58 Sodium 138 mmol/L (136-145) 03/09/19 17:07 POC Potassium 4.3 mEq/L (3.3-5.0) 03/09/19 17:58 Potassium 4.3 mmol/L (3.5-5.1) 03/09/19 17:07 POC Chloride 100 mEq/L (101-112) L 03/09/19 17:58 Chloride 101 mmol/L (98-107) 03/09/19 17:07 Carbon Dioxide 31 mmol/L (21-32) 03/09/19 17:07 POC Total CO2 30 mEq/l (24-31) 03/09/19 17:58 Anion Gap 6.0 (3-11) 03/09/19 17:07 POC Anion Gap 13.0 mmol/L (16-25) L 03/09/19 17:58 POC BUN 45 mg/dl (7-18) H 03/09/19 17:58 BUN 52 mg/dl (7-18) H 03/09/19 17:07 Creatinine 2.04 mg/dl (0.6-1.4) H 03/09/19 17:07 POC Creatinine 2.0 mg/dl (0.6-1.3) H 03/09/19 17:58 Est Cr Clr Drug Dosing Not Reportable 03/09/19 17:07 Est GFR ( Amer) 36.9 03/09/19 17:07 Est GFR (Non-Af Amer) 31.8 03/09/19 17:07 BUN/Creatinine Ratio 25.4 (10-20) H 03/09/19 17:07 Glucose 214 mg/dl (70-99) H 03/09/19 17:07 POC Glucose 218 (70-99) H 03/09/19 17:33 POC Glucose (other) 218 mg/dl (70-99) H 03/09/19 17:58 Calcium 8.9 mg/dl (8.5-10.1) 03/09/19 17:07 POC Ioniz Calcium Shahida 1.09 mmol/l (1.12-1.32) L 03/09/19 17:58 Magnesium 2.1 mg/dl (1.8-2.4) 03/09/19 17:07 Total Bilirubin 0.3 mg/dl (0.2-1) 03/09/19 17:07 AST 24 U/L (15-37) 03/09/19 17:07 ALT 39 U/L (12-78) 03/09/19 17:07 Alkaline Phosphatase 159 U/L (45-117) H 03/09/19 17:07 Troponin I < 0.015 ng/ml (0-0.045) 03/09/19 17:07 C-Reactive Protein 7.10 mg/dl (0-0.29) H 03/09/19 17:07 Total Protein 7.5 gm/dl (6.4-8.2) 03/09/19 17:07 Albumin 2.4 gm/dl (3.4-5.0) L 03/09/19 17:07 Globulin 5.1 gm/dl (2.5-4.0) H 03/09/19 17:07 Albumin/Globulin Ratio 0.5 (0.9-2) L 03/09/19 17:07 Lipase 49 U/L (73-393) L 03/09/19 17:07 TSH 3.490 uIu/ml (0.300-4.500) 03/09/19 17:07 Urine Color Yellow 03/09/19 19:36 Urine Appearance Clear (Clear) 03/09/19 19:36 Urine pH 7.0 (4.5-7.5) 03/09/19 19:36 Ur Specific [place] 1.014 (1.000-1.030) 03/09/19 19:36 Urine Protein 1+ (Negative) H 03/09/19 19:36 Urine Glucose (UA) Trace (Negative) H 03/09/19 19:36 Urine Ketones Negative (Negative) 03/09/19 19:36 Urine Blood Negative (Negative) 03/09/19 19:36 Urine Nitrite Negative (Negative) 03/09/19 19:36 Urine Bilirubin Negative (Negative) 03/09/19 19:36 Urine Urobilinogen Negative (Negative) 03/09/19 19:36 Ur Leukocyte Esterase Trace (Negative) H 03/09/19 19:36 Urine WBC (Auto) 1-5 /hpf (0-5) 03/09/19 19:36 Urine RBC (Auto) 0-4 /hpf (0-4) 03/09/19 19:36 U Hyaline Cast (Auto) 1-5 /lpf (0-5) 03/09/19 19:36 U Epithel Cells (Auto) 5-10 /lpf (0-5) H 03/09/19 19:36 Urine Bacteria (Auto) Negative (Negative) 03/09/19 19:36 Stl C. diff Tox B Gene Positive Cdiff Gene (Neg) H 03/09/19 20:[address] abdomen pelvis: 1. Slight increase in size in the multiple hepatic lesions. This suggests progression of metastatic disease. 2. No significant change in the 4.2 x 3.9 cm gastrohepatic mass/lymph node. This is also suspicious for neoplastic/metastatic disease. 3. No bowel wall thickening or obstruction. 4. Normal appendix. 5. Colonic diverticulosis. 6. Cholelithiasis. The gallbladder remains mildly distended. No gallbladder wall thickening. 7. Trace pericardial effusion, unchanged. Chest x-ray : No significant change compared to the prior study. No acute process. Left basilar densities favor subsegmental atelectasis. EKG as per my interpretation : Rate 95, NSR, LAD, LAFB, no ischemia (1) Abdominal pain Abdominal location: unspecified location Qualified Code(s): R10.9 - Unspecified abdominal pain
[2019-03-10] MEDS ORDERED: VANCOMYCIN HCL 125 MG/2.5ML SOLN PO STA (00:43)
[2019-03-10] MEDS: RASPBERRY SYRUP 5 ML UDP PO SCH ×2 (01:11→12:39)
[2019-03-10] MEDS ORDERED: GLUCAGON FOR INJ 1 MG VIAL SQ PRN (01:30)
[2019-03-10] MEDS ORDERED: TRAMADOL HCL 50 MG TABLET PO PRN (01:30)
[2019-03-10] MEDS ORDERED: NITROGLYCERIN SL 0.4 MG/TAB TAB SL PRN (01:30)
[2019-03-10] MEDS ORDERED: GLUCOSE 10 TABS/TUBE PO PRN (01:30)
[2019-03-10] MEDS ORDERED: SODIUM CHLORIDE 0.9% 1000ML 1,000 ML IV ONE (01:30)
[2019-03-10] MEDS ORDERED: DEXTROSE 50% 50 ML SYRINGE IV PRN (01:30)
[2019-03-10] MEDS ORDERED: ACETAMINOPHEN 325 MG TAB PO PRN (01:30)
[2019-03-10] MEDS ORDERED: CARBOHYDRATES FOR HYPOGLYCEMIA PO PRN (01:30)
[2019-03-10] MEDS ORDERED: GLUCOSE 40% GEL 15 GM TUBE PO PRN (01:30)
[2019-03-10 01:55] LABS: Cdiff Antigen Negative; Cdiff Toxin A+B Negative Cdiff Toxin (Negative)
[2019-03-10] MEDS ORDERED: INSULIN GLARGINE SOLOSTAR 100 UNITS/ML 3 ML PEN SC STA (01:56)
[2019-03-10] MEDS: PROMETHAZINE HCL 12.5 MG in SODIUM CHLORIDE 0.9% 50 ML IV PRN ×2 (02:40→09:48)
[2019-03-10] MEDS: INSULIN ASPART 100 UNITS/ML 3 ML PEN SC SCH ×5 (02:41→21:46)
[2019-03-10] MEDS ORDERED: SODIUM CHLORIDE 0.9% 500 ML IV ONE (04:38)
[2019-03-10] MEDS: HEPARIN SOD 5,000 UNIT/0.5 ML VIAL SQ SCH ×3 (05:00→21:47)
[2019-03-10] MEDS ORDERED: ONDANSETRON INJ 2 MG/ML 2 ML VIAL ONE (07:43)
[2019-03-10] MEDS: LORATADINE 10 MG TAB PO SCH ×2 (08:49→09:49)
[2019-03-10] MEDS: SEVELAMER HCL 800 MG TABLET PO SCH ×3 (08:49→17:49)
[2019-03-10] MEDS: LIDOCAINE 5% 1 PATCH TD SCH (08:51)
[2019-03-10] MEDS ORDERED: INSULIN GLARGINE SOLOSTAR 100 UNITS/ML 3 ML PEN SQ SCH (09:00)
[2019-03-10 09:04] LABS: Basophils # (auto) 0.03 K/uL (0-0.2); Basophils % (auto) 0.3 %; Eosinophils # (auto) 0.17 K/uL (0-0.5); Eosinophils % (auto) 1.5 %; Hematocrit (blood only) 29.9 % (42-52); Hemoglobin 9.4 g/dL (14.0-18.0); Immature Granulocytes # (auto) 0.03 K/uL (0.00-0.02); Immature Granulocytes % (auto) 0.3 %; Lymphocytes # (auto) 1.22 K/uL (1.2-3.4); Lymphocytes % (auto) 10.7 %; Mean Corpuscular Hemoglobin 26.9 pg (25-34); Mean Corpuscular Hgb Conc 31.4 g/dL (32-36); Mean Corpuscular Volume 85.4 fL (80-100); Mean Platelet Volume 12.3 fL (7.4-10.4); Monocytes % (auto) 7.9 %; Neutrophils # (auto) 9.02 K/uL (1.4-6.5); Neutrophils % (auto) 79.3 %; Platelet Count 222 K/uL (130-400); RDW Coefficient of Variation 13.4 % (11.5-14.5); RDW Standard Deviation 41.8 fL (36.4-46.3); White Blood Count 11.37 K/uL (4.8-10.8)
[2019-03-10 09:31] LABS: BUN Creatinine Ratio 24.1 (10-20); Calcium 9.3 mg/dl (8.5-10.1); Creatinine Clr Calc Pharmacy 36.8 ml/min; Est GFR (African American) 40.2; Est GFR (Non-African American) 34.7; Potassium 4.3 mmol/L (3.5-5.1)
[2019-03-10] MEDS: FLUOXETINE HCL 20 MG CAP PO SCH (09:50)
[2019-03-10] MEDS: FAMOTIDINE 10 MG TABLET PO SCH (09:50)
[2019-03-10] MEDS: GABAPENTIN 400 MG CAP PO SCH ×2 (09:50→20:05)
[2019-03-10] MEDS: AMLODIPINE BESYLATE 5 MG TAB PO SCH (09:50)
[2019-03-10] MEDS: allopurinoL 100 MG TAB PO SCH (09:50)
--- NOTE | 2019-03-10 14:24 | Hospitalist Progress Note ---
Date of Service March 10, 2019 Assessment & Plan (1) Abdominal pain: Acute gastroenteritis Rule out C. difficile -patient is a carrier but not active infection -Received IV normal saline, will start IV lactated Ringer's as patient continues to be nauseous, and has no p.o. intake right now Hold home diuretic until patient euvolemic and able to tolerate p.o. 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 oncologist - follows w/ Dr. Huynh, last visit December 2018.) Outpatient follow-up with patient's [facility] oncologist regarding progression of metastatic pancreatic neuroendocrine tumor CT abdomen pelvis obtained on admission (03/09/2019) - slight increase in size in the multiple hepatic lesions, no significant change in gastrohepatic mass/lymph nodes, no bowel wall thickening or obstruction, appendix normal, colonic diverticulosis, cholelithiasis, the gallbladder remains mildly distended, no gallbladder wall thickening. Trace pericardial effusion, unchanged. Chronic diastolic heart failure as per records (EF 55 to 60%, TTE 2017), patient on the dry side HTN, elevated secondary discomfort Medical telemetry for uncontrolled blood pressure Facilitate home BP meds, may need dose titration Hyperlipidemia on statin Rx (currently has nausea, not able to take PO) DM2, insulin requiring, suboptimal control as of recent outpatient hemoglobin A1c of 8.6, January 2019 Basal insulin adjusted for clear liquid diet for now, ISS BG goal [id number], carb count coverage CRI, serum creatinine baseline Cr 2.0, then 1.9 - will provide IVF and will cont. to monitor -We will try to avoid nephrotoxic agents such as NSAIDs Chronic anemia secondary to CKD, hemoglobin at baseline (below 10) - will cont. to monitor Hyperparathyroidism as per records Functional disability/deconditioning secondary to recurrent admissions - will obtain PT/OT Past tobacco abuse DVT prophylaxis. Heparin subcu Code status: Full code Subjective Patient sitting up in bed, nauseous, uncomfortable, ill-appearing. Denies any fevers, chills, chest pain, shortness of breath. Review of Systems Review of Systems: All systems reviewed & are unremarkable except as noted in HPI & below Constitutional: no fever, no chills and no body aches Respiratory: no cough and no dyspnea Cardiovascular: no chest pain and no palpitations Gastrointestinal: + abdominal pain, + nausea and + vomiting Physical Exam Physical Exam: GENERAL: Elderly male sitting up in bed, ill-appearing, pale and nauseous, but in no respiratory distress HEENT: PERRL, EOMI, dry buccal mucosa NECK : Supple, no tenderness CHEST : Decreased breath sounds , no tenderness HEART : Tachycardic, no obvious murmurs ABDOMEN: mild distention, nontender to palpation EXTREMITIES : Minimal LE swelling, no LE tenderness, toe amputation stump right foot SKIN: Pallor, warm NEUROLOGIC : alert and oriented, no facial asymmetry, speech is slow and soft, moves all 4 extremities spontaneously Results & Data Vital Signs (Past 12 Hours) Vital Signs Temp Pulse Pulse Resp BP Pulse Ox 03/10/19 11:20 37.3 C 114 H 16 152/71 H 90 03/10/19 09:00 113 H 161/74 H 03/10/19 07:50 106 H 03/10/19 03:00 110 H Laboratory Results 03/10/19 03/10/19 03/10/19 Range/Units 11:42 08:49 08:49 WBC 11.37 H RBC 3.50 L Hgb 9.4 L POC Hgb (14.0-18.0) g/dl Hct 29.9 L POC Hct (42-52) % MCV 85.4 MCH 26.9 MCHC 31.4 L RDW Std Deviation 41.8 RDW Coeff of José Miguel 13.4 Plt Count 222 MPV 12.3 H Immature Gran % (Auto) 0.3 Neut % (Auto) 79.3 Lymph % (Auto) 10.7 [place] % (Auto) 7.9 Eos % (Auto) 1.5 Baso % (Auto) 0.3 Immature Gran # (Auto) 0.03 H Neut # (Auto) 9.02 H Lymph # (Auto) 1.22 [place] # (Auto) 0.90 H Eos # (Auto) 0.17 Baso # (Auto) 0.03 Absolute Nucleated RBC Nucleated RBC % (auto) Neutrophils % (Manual) Band Neutrophils % Lymphocytes % (Manual) Prolymphocyte % Reactive Lymphs % (Man) Monocytes % (Manual) Eosinophils % (Manual) Basophils % (Manual) Metamyelocytes % (Man) Myelocytes % (Man) Promyelocytes % (Man) Blast Cells % (Manual) Plasma Cell % (Manual) Other Cells % Nucleated RBC % Neutrophils # (Manual) Band Neutrophils # Total Absolute Neuts Lymphocytes # (Manual) Prolymphocyte # Reactive Lymphs # Total Abs Lymphocytes Monocytes # (Manual) Eosinophils # (Manual) Basophils # (Manual) Metamyelocytes # (Man) Myelocytes # (Manual) Promyelocytes # (Man) Blast Cells # (Man) Plasma Cell # (Manual) Other Cells # Nucleated RBCs # (Man) Hypersegmented Neuts Hyposegmented Neuts Hypogranular Neuts Large Granular Lymphs # Lrg Granular Lymphs Hairy Cells Smudge Cells Toxic Granulation Toxic Vacuolation Dohle Bodies Blanca Rods Platelet Estimate Hypogranular Platelets Clumped Platelets Giant Platelets Platelet Satelliting RBC Morphology Polychromasia Hypochromasia Poikilocytosis Basophilic Stippling Anisocytosis Microcytosis Macrocytosis Spherocytes Pappenheimer Bodies Sickle Cells Target Cells Tear Drop Cells Ovalocytes Stomatocytes [place] Bodies Echinocytes Acanthocytes (Spur) Rouleaux RBC Agglutinates Schistocytes RBC Morph Comment ESR (0-14) mm/hr Sezary Cell PT (9.0-12.0) Seconds INR (0.9-1.1) APTT (21.0-31.0) Seconds PTT Ratio POC Sodium (135-144) mEq/L Sodium 140 (136-145) mmol/L POC Potassium (3.3-5.0) mEq/L Potassium 4.3 (3.5-5.1) mmol/L POC Chloride (101-112) mEq/L Chloride 105 (98-107) mmol/L Carbon Dioxide 28 (21-32) mmol/L POC Total CO2 (24-31) mEq/l Anion Gap 7.0 (3-11) POC Anion Gap (16-25) mmol/L POC BUN (7-18) mg/dl BUN 46 H (7-18) mg/dl Creatinine 1.90 H (0.6-1.4) mg/dl POC Creatinine (0.6-1.3) mg/dl Est Cr Clr Drug Dosing 36.8 Est GFR ( Amer) 40.2 Est GFR (Non-Af Amer) 34.7 BUN/Creatinine Ratio 24.1 H (10-20) Glucose 225 H (70-99) mg/dl POC Glucose 221 H (70-99) POC Glucose (other) (70-99) mg/dl Calcium 9.3 (8.5-10.1) mg/dl POC Ioniz Calcium Shahida (1.12-1.32) mmol/l Magnesium (1.8-2.4) mg/dl Total Bilirubin (0.2-1) mg/dl AST (15-37) U/L ALT (12-78) U/L Alkaline Phosphatase (45-117) U/L Troponin I (0-0.045) ng/ml C-Reactive Protein (0-0.29) mg/dl Total Protein (6.4-8.2) gm/dl Albumin (3.4-5.0) gm/dl Globulin (2.5-4.0) gm/dl Albumin/Globulin Ratio (0.9-2) Lipase (73-393) U/L TSH (0.300-4.500) uIu/ml Urine Color Urine Appearance (Clear) Urine pH (4.5-7.5) Ur Specific [place] (1.000-1.030) Urine Protein (Negative) Urine Glucose (UA) (Negative) Urine Ketones (Negative) Urine Blood (Negative) Urine Nitrite (Negative) Urine Bilirubin (Negative) Urine Urobilinogen (Negative) Ur Leukocyte Esterase (Negative) Urine WBC (Auto) (0-5) /hpf Urine RBC (Auto) (0-4) /hpf U Hyaline Cast (Auto) (0-5) /lpf U Epithel Cells (Auto) (0-5) /lpf Urine Bacteria (Auto) (Negative) Stl C. diff Tox B Gene (Neg) Stl C.difficile Tox A&B (Negative) 03/10/19 03/10/19 03/09/19 Range/Units 07:36 01:47 20:20 WBC RBC Hgb POC Hgb (14.0-18.0) g/dl Hct POC Hct (42-52) % MCV MCH MCHC RDW Std Deviation RDW Coeff of José Miguel Plt Count MPV Immature Gran % (Auto) Neut % (Auto) Lymph % (Auto) [place] % (Auto) Eos % (Auto) Baso % (Auto) Immature Gran # (Auto) Neut # (Auto) Lymph # (Auto) [place] # (Auto) Eos # (Auto) Baso # (Auto) Absolute Nucleated RBC Nucleated RBC % (auto) Neutrophils % (Manual) Band Neutrophils % Lymphocytes % (Manual) Prolymphocyte % Reactive Lymphs % (Man) Monocytes % (Manual) Eosinophils % (Manual) Basophils % (Manual) Metamyelocytes % (Man) Myelocytes % (Man) Promyelocytes % (Man) Blast Cells % (Manual) Plasma Cell % (Manual) Other Cells % Nucleated RBC % Neutrophils # (Manual) Band Neutrophils # Total Absolute Neuts Lymphocytes # (Manual) Prolymphocyte # Reactive Lymphs # Total Abs Lymphocytes Monocytes # (Manual) Eosinophils # (Manual) Basophils # (Manual) Metamyelocytes # (Man) Myelocytes # (Manual) Promyelocytes # (Man) Blast Cells # (Man) Plasma Cell # (Manual) Other Cells # Nucleated RBCs # (Man) Hypersegmented Neuts Hyposegmented Neuts Hypogranular Neuts Large Granular Lymphs # Lrg Granular Lymphs Hairy Cells Smudge Cells Toxic Granulation Toxic Vacuolation Dohle Bodies Blanca Rods Platelet Estimate Hypogranular Platelets Clumped Platelets Giant Platelets Platelet Satelliting RBC Morphology Polychromasia Hypochromasia Poikilocytosis Basophilic Stippling Anisocytosis Microcytosis Macrocytosis Spherocytes Pappenheimer Bodies Sickle Cells Target Cells Tear Drop Cells Ovalocytes Stomatocytes [place] Bodies Echinocytes Acanthocytes (Spur) Rouleaux RBC Agglutinates Schistocytes RBC Morph Comment ESR (0-14) mm/hr Sezary Cell PT (9.0-12.0) Seconds INR (0.9-1.1) APTT (21.0-31.0) Seconds PTT Ratio POC Sodium (135-144) mEq/L Sodium (136-145) mmol/L POC Potassium (3.3-5.0) mEq/L Potassium (3.5-5.1) mmol/L POC Chloride (101-112) mEq/L Chloride (98-107) mmol/L Carbon Dioxide (21-32) mmol/L POC Total CO2 (24-31) mEq/l Anion Gap (3-11) POC Anion Gap (16-25) mmol/L POC BUN (7-18) mg/dl BUN (7-18) mg/dl Creatinine (0.6-1.4) mg/dl POC Creatinine (0.6-1.3) mg/dl Est Cr Clr Drug Dosing Est GFR ( Amer) Est GFR (Non-Af Amer) BUN/Creatinine Ratio (10-20) Glucose (70-99) mg/dl POC Glucose 223 H 197 H (70-99) POC Glucose (other) (70-99) mg/dl Calcium (8.5-10.1) mg/dl POC Ioniz Calcium Shahida (1.12-1.32) mmol/l Magnesium (1.8-2.4) mg/dl Total Bilirubin (0.2-1) mg/dl AST (15-37) U/L ALT (12-78) U/L Alkaline Phosphatase (45-117) U/L Troponin I (0-0.045) ng/ml C-Reactive Protein (0-0.29) mg/dl Total Protein (6.4-8.2) gm/dl Albumin (3.4-5.0) gm/dl Globulin (2.5-4.0) gm/dl Albumin/Globulin Ratio (0.9-2) Lipase (73-393) U/L TSH (0.300-4.500) uIu/ml Urine Color Urine Appearance (Clear) Urine pH (4.5-7.5) Ur Specific [place] (1.000-1.030) Urine Protein (Negative) Urine Glucose (UA) (Negative) Urine Ketones (Negative) Urine Blood (Negative) Urine Nitrite (Negative) Urine Bilirubin (Negative) Urine Urobilinogen (Negative) Ur Leukocyte Esterase (Negative) Urine WBC (Auto) (0-5) /hpf Urine RBC (Auto) (0-4) /hpf U Hyaline Cast (Auto) (0-5) /lpf U Epithel Cells (Auto) (0-5) /lpf Urine Bacteria (Auto) (Negative) Stl C. diff Tox B Gene Positive Cdiff Gene H (Neg) Stl C.difficile Tox A&B Negative Cdiff Toxin (Negative) 03/09/19 03/09/19 03/09/19 Range/Units 19:36 18:05 18:05 WBC 9.98 RBC 3.53 L Hgb 9.8 L POC Hgb (14.0-18.0) g/dl Hct 30.2 L POC Hct (42-52) % MCV 85.6 MCH 27.8 MCHC 32.5 RDW Std Deviation 41.7 RDW Coeff of José Miguel 13.3 Plt Count 218 MPV 13.2 H Immature Gran % (Auto) 0.1 Neut % (Auto) 75.7 Lymph % (Auto) 12.4 [place] % (Auto) 8.2 Eos % (Auto) 3.2 Baso % (Auto) 0.4 Immature Gran # (Auto) 0.01 Neut # (Auto) 7.55 H Lymph # (Auto) 1.24 [place] # (Auto) 0.82 H Eos # (Auto) 0.32 Baso # (Auto) 0.04 Absolute Nucleated RBC Nucleated RBC % (auto) Neutrophils % (Manual) Band Neutrophils % Lymphocytes % (Manual) Prolymphocyte % Reactive Lymphs % (Man) Monocytes % (Manual) Eosinophils % (Manual) Basophils % (Manual) Metamyelocytes % (Man) Myelocytes % (Man) Promyelocytes % (Man) Blast Cells % (Manual) Plasma Cell % (Manual) Other Cells % Nucleated RBC % Neutrophils # (Manual) Band Neutrophils # Total Absolute Neuts Lymphocytes # (Manual) Prolymphocyte # Reactive Lymphs # Total Abs Lymphocytes Monocytes # (Manual) Eosinophils # (Manual) Basophils # (Manual) Metamyelocytes # (Man) Myelocytes # (Manual) Promyelocytes # (Man) Blast Cells # (Man) Plasma Cell # (Manual) Other Cells # Nucleated RBCs # (Man) Hypersegmented Neuts Hyposegmented Neuts Hypogranular Neuts Large Granular Lymphs # Lrg Granular Lymphs Hairy Cells Smudge Cells Toxic Granulation Toxic Vacuolation Dohle Bodies Blanca Rods Platelet Estimate Hypogranular Platelets Clumped Platelets Giant Platelets Platelet Satelliting RBC Morphology Polychromasia Hypochromasia Poikilocytosis Basophilic Stippling Anisocytosis Microcytosis Macrocytosis Spherocytes Pappenheimer Bodies Sickle Cells Target Cells Tear Drop Cells Ovalocytes Stomatocytes [place] Bodies Echinocytes Acanthocytes (Spur) Rouleaux RBC Agglutinates Schistocytes RBC Morph Comment ESR > 90 H (0-14) mm/hr Sezary Cell PT (9.0-12.0) Seconds INR (0.9-1.1) APTT (21.0-31.0) Seconds PTT Ratio POC Sodium (135-144) mEq/L Sodium (136-145) mmol/L POC Potassium (3.3-5.0) mEq/L Potassium (3.5-5.1) mmol/L POC Chloride (101-112) mEq/L Chloride (98-107) mmol/L Carbon Dioxide (21-32) mmol/L POC Total CO2 (24-31) mEq/l Anion Gap (3-11) POC Anion Gap (16-25) mmol/L POC BUN (7-18) mg/dl BUN (7-18) mg/dl Creatinine (0.6-1.4) mg/dl POC Creatinine (0.6-1.3) mg/dl Est Cr Clr Drug Dosing Est GFR ( Amer) Est GFR (Non-Af Amer) BUN/Creatinine Ratio (10-20) Glucose (70-99) mg/dl POC Glucose (70-99) POC Glucose (other) (70-99) mg/dl Calcium (8.5-10.1) mg/dl POC Ioniz Calcium Shahi[place] (1.12-1.32) mmol/l Magnesium (1.8-2.4) mg/dl Total Bilirubin (0.2-1) mg/dl AST (15-37) U/L ALT (12-78) U/L Alkaline Phosphatase (45-117) U/L Troponin I (0-0.045) ng/ml C-Reactive Protein (0-0.29) mg/dl Total Protein (6.4-8.2) gm/dl Albumin (3.4-5.0) gm/dl Globulin (2.5-4.0) gm/dl Albumin/Globulin Ratio (0.9-2) Lipase (73-393) U/L TSH (0.300-4.500) uIu/ml Urine Color Yellow Urine Appearance Clear (Clear) Urine pH 7.0 (4.5-7.5) Ur Specific [place] 1.014 (1.000-1.030) Urine Protein 1+ H (Negative) Urine Glucose (UA) Trace H (Negative) Urine Ketones Negative (Negative) Urine Blood Negative (Negative) Urine Nitrite Negative (Negative) Urine Bilirubin Negative (Negative) Urine Urobilinogen Negative (Negative) Ur Leukocyte Esterase Trace H (Negative) Urine WBC (Auto) 1-5 (0-5) /hpf Urine RBC (Auto) 0-4 (0-4) /hpf U Hyaline Cast (Auto) 1-5 (0-5) /lpf U Epithel Cells (Auto) 5-10 H (0-5) /lpf Urine Bacteria (Auto) Negative (Negative) Stl C. diff Tox B Gene (Neg) Stl C.difficile Tox A&B (Negative) 03/09/19 03/09/19 03/09/19 Range/Units 18:05 17:58 17:33 WBC Cancelled RBC Cancelled Hgb Cancelled POC Hgb 8.5 L (14.0-18.0) g/dl Hct Cancelled POC Hct 25 L (42-52) % MCV Cancelled MCH Cancelled MCHC Cancelled RDW Std Deviation Cancelled RDW Coeff of José Miguel Cancelled Plt Count Cancelled MPV Cancelled Immature Gran % (Auto) Cancelled Neut % (Auto) Cancelled Lymph % (Auto) Cancelled [place] % (Auto) Cancelled Eos % (Auto) Cancelled Baso % (Auto) Cancelled Immature Gran # (Auto) Cancelled Neut # (Auto) Cancelled Lymph # (Auto) Cancelled [place] # (Auto) Cancelled Eos # (Auto) Cancelled Baso # (Auto) Cancelled Absolute Nucleated RBC Cancelled Nucleated RBC % (auto) Cancelled Neutrophils % (Manual) Cancelled Band Neutrophils % Cancelled Lymphocytes % (Manual) Cancelled Prolymphocyte % Cancelled Reactive Lymphs % (Man) Cancelled Monocytes % (Manual) Cancelled Eosinophils % (Manual) Cancelled Basophils % (Manual) Cancelled Metamyelocytes % (Man) Cancelled Myelocytes % (Man) Cancelled Promyelocytes % (Man) Cancelled Blast Cells % (Manual) Cancelled Plasma Cell % (Manual) Cancelled Other Cells % Cancelled Nucleated RBC % Cancelled Neutrophils # (Manual) Cancelled Band Neutrophils # Cancelled Total Absolute Neuts Cancelled Lymphocytes # (Manual) Cancelled Prolymphocyte # Cancelled Reactive Lymphs # Cancelled Total Abs Lymphocytes Cancelled Monocytes # (Manual) Cancelled Eosinophils # (Manual) Cancelled Basophils # (Manual) Cancelled Metamyelocytes # (Man) Cancelled Myelocytes # (Manual) Cancelled Promyelocytes # (Man) Cancelled Blast Cells # (Man) Cancelled Plasma Cell # (Manual) Cancelled Other Cells # Cancelled Nucleated RBCs # (Man) Cancelled Hypersegmented Neuts Cancelled Hyposegmented Neuts Cancelled Hypogranular Neuts Cancelled Large Granular Lymphs Cancelled # Lrg Granular Lymphs Cancelled Hairy Cells Cancelled Smudge Cells Cancelled Toxic Granulation Cancelled Toxic Vacuolation Cancelled Dohle Bodies Cancelled Blanca Rods Cancelled Platelet Estimate Cancelled Hypogranular Platelets Cancelled Clumped Platelets Cancelled Giant Platelets Cancelled Platelet Satelliting Cancelled RBC Morphology Cancelled Polychromasia Cancelled Hypochromasia Cancelled Poikilocytosis Cancelled Basophilic Stippling Cancelled Anisocytosis Cancelled Microcytosis Cancelled Macrocytosis Cancelled Spherocytes Cancelled Pappenheimer Bodies Cancelled Sickle Cells Cancelled Target Cells Cancelled Tear Drop Cells Cancelled Ovalocytes Cancelled Stomatocytes Cancelled [place] Bodies Cancelled Echinocytes Cancelled Acanthocytes (Spur) Cancelled Rouleaux Cancelled RBC Agglutinates Cancelled Schistocytes Cancelled RBC Morph Comment Cancelled ESR (0-14) mm/hr Sezary Cell Cancelled PT (9.0-12.0) Seconds INR (0.9-1.1) APTT (21.0-31.0) Seconds PTT Ratio POC Sodium 138 (135-144) mEq/L Sodium (136-145) mmol/L POC Potassium 4.3 (3.3-5.0) mEq/L Potassium (3.5-5.1) mmol/L POC Chloride 100 L (101-112) mEq/L Chloride (98-107) mmol/L Carbon Dioxide (21-32) mmol/L POC Total CO2 30 (24-31) mEq/l Anion Gap (3-11) POC Anion Gap 13.0 L (16-25) mmol/L POC BUN 45 H (7-18) mg/dl BUN (7-18) mg/dl Creatinine (0.6-1.4) mg/dl POC Creatinine 2.0 H (0.6-1.3) mg/dl Est Cr Clr Drug Dosing Est GFR ( Amer) Est GFR (Non-Af Amer) BUN/Creatinine Ratio (10-20) Glucose (70-99) mg/dl POC Glucose 218 H (70-99) POC Glucose (other) 218 H (70-99) mg/dl Calcium (8.5-10.1) mg/dl POC Ioniz Calcium Shah[place] 1.09 L (1.12-1.32) mmol/l Magnesium (1.8-2.4) mg/dl Total Bilirubin (0.2-1) mg/dl AST (15-37) U/L ALT (12-78) U/L Alkaline Phosphatase (45-117) U/L Troponin I (0-0.045) ng/ml C-Reactive Protein (0-0.29) mg/dl Total Protein (6.4-8.2) gm/dl Albumin (3.4-5.0) gm/dl Globulin (2.5-4.0) gm/dl Albumin/Globulin Ratio (0.9-2) Lipase (73-393) U/L TSH (0.300-4.500) uIu/ml Urine Color Urine Appearance (Clear) Urine pH (4.5-7.5) Ur Specific [place] (1.000-1.030) Urine Protein (Negative) Urine Glucose (UA) (Negative) Urine Ketones (Negative) Urine Blood (Negative) Urine Nitrite (Negative) Urine Bilirubin (Negative) Urine Urobilinogen (Negative) Ur Leukocyte Esterase (Negative) Urine WBC (Auto) (0-5) /hpf Urine RBC (Auto) (0-4) /hpf U Hyaline Cast (Auto) (0-5) /lpf U Epithel Cells (Auto) (0-5) /lpf Urine Bacteria (Auto) (Negative) Stl C. diff Tox B Gene (Neg) Stl C.difficile Tox A&B (Negative) 03/09/19 03/09/19 Range/Units 17:07 17:07 WBC RBC Hgb POC Hgb (14.0-18.0) g/dl Hct POC Hct (42-52) % MCV MCH MCHC RDW Std Deviation RDW Coeff of José Miguel Plt Count MPV Immature Gran % (Auto) Neut % (Auto) Lymph % (Auto) [place] % (Auto) Eos % (Auto) Baso % (Auto) Immature Gran # (Auto) Neut # (Auto) Lymph # (Auto) [place] # (Auto) Eos # (Auto) Baso # (Auto) Absolute Nucleated RBC Nucleated RBC % (auto) Neutrophils % (Manual) Band Neutrophils % Lymphocytes % (Manual) Prolymphocyte % Reactive Lymphs % (Man) Monocytes % (Manual) Eosinophils % (Manual) Basophils % (Manual) Metamyelocytes % (Man) Myelocytes % (Man) Promyelocytes % (Man) Blast Cells % (Manual) Plasma Cell % (Manual) Other Cells % Nucleated RBC % Neutrophils # (Manual) Band Neutrophils # Total Absolute Neuts Lymphocytes # (Manual) Prolymphocyte # Reactive Lymphs # Total Abs Lymphocytes Monocytes # (Manual) Eosinophils # (Manual) Basophils # (Manual) Metamyelocytes # (Man) Myelocytes # (Manual) Promyelocytes # (Man) Blast Cells # (Man) Plasma Cell # (Manual) Other Cells # Nucleated RBCs # (Man) Hypersegmented Neuts Hyposegmented Neuts Hypogranular Neuts Large Granular Lymphs # Lrg Granular Lymphs Hairy Cells Smudge Cells Toxic Granulation Toxic Vacuolation Dohle Bodies Blanca Rods Platelet Estimate Hypogranular Platelets Clumped Platelets Giant Platelets Platelet Satelliting RBC Morphology Polychromasia Hypochromasia Poikilocytosis Basophilic Stippling Anisocytosis Microcytosis Macrocytosis Spherocytes Pappenheimer Bodies Sickle Cells Target Cells Tear Drop Cells Ovalocytes Stomatocytes [place] Bodies Echinocytes Acanthocytes (Spur) Rouleaux RBC Agglutinates Schistocytes RBC Morph Comment ESR (0-14) mm/hr Sezary Cell PT 11.5 (9.0-12.0) Seconds INR 1.1 (0.9-1.1) APTT 26.5 (21.0-31.0) Seconds PTT Ratio 1.0 POC Sodium (135-144) mEq/L Sodium 138 (136-145) mmol/L POC Potassium (3.3-5.0) mEq/L Potassium 4.3 (3.5-5.1) mmol/L POC Chloride (101-112) mEq/L Chloride 101 (98-107) mmol/L Carbon Dioxide 31 (21-32) mmol/L POC Total CO2 (24-31) mEq/l Anion Gap 6.0 (3-11) POC Anion Gap (16-25) mmol/L POC BUN (7-18) mg/dl BUN 52 H (7-18) mg/dl Creatinine 2.04 H (0.6-1.4) mg/dl POC Creatinine (0.6-1.3) mg/dl Est Cr Clr Drug Dosing Not Reportable Est GFR ( Amer) 36.9 Est GFR (Non-Af Amer) 31.8 BUN/Creatinine Ratio 25.4 H (10-20) Glucose 214 H (70-99) mg/dl POC Glucose (70-99) POC Glucose (other) (70-99) mg/dl Calcium 8.9 (8.5-10.1) mg/dl POC Ioniz Calcium [place] (1.12-1.32) mmol/l Magnesium 2.1 (1.8-2.4) mg/dl Total Bilirubin 0.3 (0.2-1) mg/dl AST 24 (15-37) U/L ALT 39 (12-78) U/L Alkaline Phosphatase 159 H (45-117) U/L Troponin I < 0.015 (0-0.045) ng/ml C-Reactive Protein 7.10 H (0-0.29) mg/dl Total Protein 7.5 (6.4-8.2) gm/dl Albumin 2.4 L (3.4-5.0) gm/dl Globulin 5.1 H (2.5-4.0) gm/dl Albumin/Globulin Ratio 0.5 L (0.9-2) Lipase 49 L (73-393) U/L TSH 3.490 (0.300-4.500) uIu/ml Urine Color Urine Appearance (Clear) Urine pH (4.5-7.5) Ur Specific [place] (1.000-1.030) Urine Protein (Negative) Urine Glucose (UA) (Negative) Urine Ketones (Negative) Urine Blood (Negative) Urine Nitrite (Negative) Urine Bilirubin (Negative) Urine Urobilinogen (Negative) Ur Leukocyte Esterase (Negative) Urine WBC (Auto) (0-5) /hpf Urine RBC (Auto) (0-4) /hpf U Hyaline Cast (Auto) (0-5) /lpf U Epithel Cells (Auto) (0-5) /lpf Urine Bacteria (Auto) (Negative) Stl C. diff Tox B Gene (Neg) Stl C.difficile Tox A&B (Negative) Medications Administered Current Inpatient Medications Acetaminophen (Tylenol) 650 mg PO Q4H PRN PRN Reason: Pain or Fever Stop: 04/09/19 01:29 Allopurinol (Zyloprim) 100 mg PO [facility] Stop: 04/09/19 08:59 Last Admin: 03/10/19 09:50 Dose: Not Given Documented by: Amlodipine Besylate (Norvasc) 5 mg PO QAM [facility] Stop: 04/09/19 08:59 Last Admin: 03/10/19 09:50 Dose: Not Given Documented by: Dextrose (Dextrose 50%) 25 - 50 ml IV UD PRN; Protocol PRN Reason: Hypoglycemia Protocol Stop: 04/09/19 01:29 Famotidine (Pepcid) 10 mg PO DAILY [facility] Stop: 04/09/19 08:59 Last Admin: 03/10/19 09:50 Dose: Not Given Documented by: Fluoxetine HCl (Prozac) 20 mg PO DAILY [facility] Stop: 04/09/19 08:59 Last Admin: 03/10/19 09:50 Dose: Not Given Documented by: Gabapentin (Neurontin) 400 mg PO BID [facility] Stop: 04/09/19 08:59 Last Admin: 03/10/19 09:50 Dose: Not Given Documented by: Glucagon (Glucagen) 1 mg SQ UD PRN; Protocol PRN Reason: Hypoglycemia Protocol Stop: 04/09/19 01:29 Glucose (Dex4 Glucose) 4 - 8 tabs PO UD PRN; Protocol PRN Reason: Hypoglycemia Protocol Stop: 04/09/19 01:29 Glucose (Glucose 40%) 15 - 30 gm PO UD PRN; Protocol PRN Reason: Hypoglycemia Protocol Stop: 04/09/19 01:29 Heparin Sodium (Porcine) (Heparin Sodium (Porcine)) 5,000 units SQ Q8 [facility] Stop: 04/09/19 05:59 Last Admin: 03/10/19 13:33 Dose: 5,000 units Documented by: Hydromorphone HCl (Dilaudid) 0.5 mg IV Q3H PRN PRN Reason: Pain Stop: 03/24/19 01:29 Promethazine HCl 12.5 mg/ (Sodium Chloride) 50.5 mls @ 202 mls/hr IV Q6H PRN PRN Reason: Nausea And Vomiting Stop: 04/09/19 01:29 Last Infusion: 03/10/19 10:33 Dose: Infused Documented by: Sodium Chloride (Nss 1000ml) 1,000 mls @ 50 mls/hr IV .Q20H ONE Stop: 03/10/19 21:29 Last Infusion: 03/10/19 13:34 Dose: Infused Documented by: Insulin Aspart (Novolog Flexpen) 0 units SC ACHS JOSSUE Stop: 04/09/19 01:59 Last Admin: 03/10/19 12:38 Dose: 2 units Documented by: Insulin Glargine (Lantus Solostar Pen) 15 units SQ DAILY JOSSUE Stop: 04/09/19 08:59 Last Admin: 03/10/19 08:49 Dose: 15 units Documented by: Lidocaine (Lidoderm 5%) 1 patch TD DAILY JOSSUE Stop: 04/09/19 08:59 Last Admin: 03/10/19 08:51 Dose: Not Given Documented by: Loratadine (Claritin) 10 mg PO DAILY JOSSUE Stop: 04/09/19 08:59 Last Admin: 03/10/19 09:49 Dose: Not Given Documented by: Miscellaneous (Carbohydrates For Hypoglycemia) 15 - 30 gm PO UD PRN PRN Reason: Hypoglycemia Protocol Stop: 04/09/19 01:29 Miscellaneous (Remove Lidoderm Patch) 1 ea N/A DAILY@2100 [facility] Stop: 04/09/19 01:29 Last Admin: 03/10/19 02:33 Dose: Not Given Documented by: Nitroglycerin (Nitrostat) 0.4 mg SL UD PRN PRN Reason: Chest Pain Stop: 04/09/19 01:29 Ondansetron HCl (Zofran) 4 mg IV Q4H PRN PRN Reason: Nausea Stop: 04/09/19 07:37 Raspberry (Raspberry) 5 ml PO Q6 JOSSUE Stop: 03/24/19 05:59 Last Admin: 03/10/19 12:39 Dose: Not Given Documented by: Sevelamer HCl (Renagel) 1,600 mg PO TIDM JOSSUE Stop: 04/09/19 07:59 Last Admin: 03/10/19 12:40 Dose: Not Given Documented by: Simvastatin (Zocor) 20 mg PO HS [facility] Stop: 04/09/19 20:59 Tramadol HCl (Ultram) 25 - 50 mg PO Q4H PRN PRN Reason: Pain Stop: 04/09/19 01:29 (1) Abdominal pain Abdominal location: unspecified location Qualified Code(s): R10.9 - Unspecified abdominal pain
[2019-03-10] MEDS: ONDANSETRON INJ 2 MG/ML 2 ML VIAL IV PRN (18:15)
[2019-03-10] MEDS: LACTATED RINGER'S 1,000 ML IV SCH (20:04)
[2019-03-10] MEDS ORDERED: SIMVASTATIN 20 MG TAB PO SCH (21:00)
[2019-03-11] MEDS ORDERED: INSULIN GLARGINE SOLOSTAR 100 UNITS/ML 3 ML PEN SC STA (01:48)
[2019-03-11] MEDS: ONDANSETRON INJ 2 MG/ML 2 ML VIAL IV PRN ×3 (01:54→16:24)
[2019-03-11] MEDS: PROMETHAZINE HCL 12.5 MG in SODIUM CHLORIDE 0.9% 50 ML IV PRN (02:40)
[2019-03-11] MEDS: LACTATED RINGER'S 1,000 ML IV SCH (04:38)
[2019-03-11] MEDS: HYDROmorphone INJ 0.5 MG/0.5 ML SYR IV PRN ×4 (06:14→23:34)
[2019-03-11] MEDS: HEPARIN SOD 5,000 UNIT/0.5 ML VIAL SQ SCH ×2 (06:16→12:59)
[2019-03-11 08:06] LABS: BUN Creatinine Ratio 21.2 (10-20); Calcium 8.9 mg/dl (8.5-10.1); Creatinine Clr Calc Pharmacy 39.1 ml/min; Est GFR (African American) 43.2; Est GFR (Non-African American) 37.3; Magnesium 1.9 mg/dl (1.8-2.4); Phosphorus 3.5 mg/dl (2.5-4.9); Potassium 4.1 mmol/L (3.5-5.1)
--- NOTE | 2019-03-11 08:34 | Hospitalist Progress Note ---
Date of Service March 11, 2019 Assessment & Plan (1) Abdominal pain: Acute gastroenteritis Rule out C. difficile -patient is a carrier but not active infection -Received IV normal saline, then IV lactated Ringer's as patient continues to be nauseous, and has no p.o. intake right now Hold home diuretic until patient euvolemic and able to tolerate p.o. 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 Huynh,and Dr. Mcfarland at [facility], last visit December 2018.) Outpatient follow-up with patient's [facility] oncologist regarding progression of metastatic pancreatic neuroendocrine tumor - Update: per pt and his family, pt does not wish to undergo any more treatments, wishes to take the pt home w/ home hospice (will consult palliative medicine and facilitate the process) CT abdomen pelvis obtained on admission (03/09/2019) - slight increase in size in the multiple hepatic lesions, no significant change in gastrohepatic mass/lymph nodes, no bowel wall thickening or obstruction, appendix normal, colonic diverticulosis, cholelithiasis, the gallbladder remains mildly distended, no gallbladder wall thickening. Trace pericardial effusion, unchanged. Chronic diastolic heart failure as per records (EF 55 to 60%, TTE 2017), patient on the dry side HTN, elevated secondary discomfort Medical telemetry for uncontrolled blood pressure - will d/c telemetry Facilitate home BP meds, may need dose titration Hyperlipidemia on statin Rx (currently has nausea, not able to take PO) - after discussion w/ pt, his family and palliative medicine, will discontinue statin or any unnecessary medications - plan to keep pt comfortable w/ palliative/hospice approach DM2, insulin requiring, suboptimal control as of recent outpatient hemoglobin A1c of 8.6, January 2019 Basal insulin adjusted for clear liquid diet for now, ISS BG goal [id number], carb count coverage CRI, serum creatinine baseline Cr 2.0, then 1.9 - pt received IVF -We will try to avoid nephrotoxic agents such as NSAIDs Chronic anemia secondary to CKD, hemoglobin at baseline (below 10) - will stop monitoring / no unnecessary blood draws per pt and family wishes Hyperparathyroidism as per records Functional disability/deconditioning secondary to recurrent admissions Past tobacco abuse DVT prophylaxis. Heparin subcu - will d/c any unnecessary medications to keep pt comfortable Code status: DNR/DNI - discussed with family and palliative medicine - pt evaluated for hospice (home vs. [facility]) Subjective Patient is lying in bed, ill-appearing, says that he feels miserable. He complained about some abdominal pain earlier, received pain medications. Still has nausea, cannot tolerate any p.o. intake. Received IV fluids yesterday/ on admission and then also last night. Denies any fevers, chills, chest pain, shortness of breath. His speech is very slow and soft, poor eye contact/hardly open his eyes. Per pt's and her sister present at the bedside, they feel like patient is giving up. His says that she feels as patient gave up when his oncologist retired. Met patient's , at the bedside this morning, she feels very overwhelmed as p issa has been in and out of hospital without much of improvement. She says that every time he comes home he only stays a few days, most recently he was home only for 3 days, stayed at [facility] for 2 weeks. She feels overwhelmed and thinks that she is not sure if she is doing the right thing bringing him to the hospital. Per her words her did not want anything done anymore and is tired of treatments. She would like palliative care consultation. Patient has a history of neuroendocrine tumor, treated at [facility] by Dr. Huynh, after his fci, they saw Dr. Mcfarland most recently. Review of Systems Review of Systems: All systems reviewed & are unremarkable except as noted in HPI & below Constitutional: no fever and no chills "feels miserable" Respiratory: no cough and no dyspnea Cardiovascular: no chest pain and no palpitations Gastrointestinal: + abdominal pain, + nausea and + vomiting Physical Exam Physical Exam: GENERAL: Elderly male laying in bed with his eyes closed, ill- appearing, pale and nauseous, but in no respiratory distress NECK : Supple, no tenderness CHEST : Decreased breath sounds , no tenderness HEART : Tachycardic, no obvious murmurs ABDOMEN: mild distention, mild diffuse tenderness to palpation EXTREMITIES : Minimal LE swelling, no LE tenderness, toe amputation stump right foot SKIN: Pallor, warm NEUROLOGIC : no facial asymmetry, speech is slow and soft, moves all 4 extremities spontaneously Results & Data Vital Signs (Past 12 Hours) Vital Signs Temp Pulse Pulse Resp BP Pulse Ox 03/11/19 07:11 36.8 C 111 H 16 154/72 H 90 03/11/19 03:00 36.5 C 114 H 19 162/78 H 91 03/11/19 02:31 110 H 03/10/19 23:44 37.0 C 109 H 18 156/65 H 92 Laboratory Results 03/11/19 03/11/19 03/11/19 Range/Units 07:33 07:18 02:39 WBC (4.8-10.8) K/uL RBC (4.7-6.1) M/uL Hgb (14.0-18.0) g/dL Hct (42-52) % MCV (80-100) fL MCH (25-34) pg MCHC (32-36) g/dL RDW Std Deviation (36.4-46.3) fL RDW Coeff of José Miguel (11.5-14.5) % Plt Count (130-400) K/uL MPV (7.4-10.4) fL Immature Gran % (Auto) % Neut % (Auto) % Lymph % (Auto) % Arthur % (Auto) % Eos % (Auto) % Baso % (Auto) % Immature Gran # (Auto) (0.00-0.02) K/uL Neut # (Auto) (1.4-6.5) K/uL Lymph # (Auto) (1.2-3.4) K/uL Arthur # (Auto) (0.11-0.59) K/uL Eos # (Auto) (0-0.5) K/uL Baso # (Auto) (0-0.2) K/uL Sodium 146 H (136-145) mmol/L Potassium 4.1 (3.5-5.1) mmol/L Chloride 106 (98-107) mmol/L Carbon Dioxide 33 H (21-32) mmol/L Anion Gap 6.0 (3-11) BUN 38 H (7-18) mg/dl Creatinine 1.79 H (0.6-1.4) mg/dl Est Cr Clr Drug Dosing 39.1 ml/min Est GFR ( Amer) 43.2 Est GFR (Non-Af Amer) 37.3 BUN/Creatinine Ratio 21.2 H (10-20) Glucose 236 H (70-99) mg/dl POC Glucose 241 H 253 H (70-99) Calcium 8.9 (8.5-10.1) mg/dl Phosphorus 3.5 (2.5-4.9) mg/dl Magnesium 1.9 (1.8-2.4) mg/dl 03/10/19 03/10/19 03/10/19 Range/Units 20:12 15:48 11:42 WBC (4.8-10.8) K/uL RBC (4.7-6.1) M/uL Hgb (14.0-18.0) g/dL Hct (42-52) % MCV (80-100) fL MCH (25-34) pg MCHC (32-36) g/dL RDW Std Deviation (36.4-46.3) fL RDW Coeff of José Miguel (11.5-14.5) % Plt Count (130-400) K/uL MPV (7.4-10.4) fL Immature Gran % (Auto) % Neut % (Auto) % Lymph % (Auto) % Arthur % (Auto) % Eos % (Auto) % Baso % (Auto) % Immature Gran # (Auto) (0.00-0.02) K/uL Neut # (Auto) (1.4-6.5) K/uL Lymph # (Auto) (1.2-3.4) K/uL Arthur # (Auto) (0.11-0.59) K/uL Eos # (Auto) (0-0.5) K/uL Baso # (Auto) (0-0.2) K/uL Sodium (136-145) mmol/L Potassium (3.5-5.1) mmol/L Chloride (98-107) mmol/L Carbon Dioxide (21-32) mmol/L Anion Gap (3-11) BUN (7-18) mg/dl Creatinine (0.6-1.4) mg/dl Est Cr Clr Drug Dosing ml/min Est GFR ( Amer) Est GFR (Non-Af Amer) BUN/Creatinine Ratio (10-20) Glucose (70-99) mg/dl POC Glucose 247 H 211 H 221 H (70-99) Calcium (8.5-10.1) mg/dl Phosphorus (2.5-4.9) mg/dl Magnesium (1.8-2.4) mg/dl 03/10/19 03/10/19 Range/Units 08:49 08:49 WBC 11.37 H (4.8-10.8) K/uL RBC 3.50 L (4.7-6.1) M/uL Hgb 9.4 L (14.0-18.0) g/dL Hct 29.9 L (42-52) % MCV 85.4 (80-100) fL MCH 26.9 (25-34) pg MCHC 31.4 L (32-36) g/dL RDW Std Deviation 41.8 (36.4-46.3) fL RDW Coeff of José Miguel 13.4 (11.5-14.5) % Plt Count 222 (130-400) K/uL MPV 12.3 H (7.4-10.4) fL Immature Gran % (Auto) 0.3 % Neut % (Auto) 79.3 % Lymph % (Auto) 10.7 % Arthur % (Auto) 7.9 % Eos % (Auto) 1.5 % Baso % (Auto) 0.3 % Immature Gran # (Auto) 0.03 H (0.00-0.02) K/uL Neut # (Auto) 9.02 H (1.4-6.5) K/uL Lymph # (Auto) 1.22 (1.2-3.4) K/uL Arthur # (Auto) 0.90 H (0.11-0.59) K/uL Eos # (Auto) 0.17 (0-0.5) K/uL Baso # (Auto) 0.03 (0-0.2) K/uL Sodium 140 (136-145) mmol/L Potassium 4.3 (3.5-5.1) mmol/L Chloride 105 (98-107) mmol/L Carbon Dioxide 28 (21-32) mmol/L Anion Gap 7.0 (3-11) BUN 46 H (7-18) mg/dl Creatinine 1.90 H (0.6-1.4) mg/dl Est Cr Clr Drug Dosing 36.8 ml/min Est GFR ( Amer) 40.2 Est GFR (Non-Af Amer) 34.7 BUN/Creatinine Ratio 24.1 H (10-20) Glucose 225 H (70-99) mg/dl POC Glucose (70-99) Calcium 9.3 (8.5-10.1) mg/dl Phosphorus (2.5-4.9) mg/dl Magnesium (1.8-2.4) mg/dl Medications Administered Current Inpatient Medications Acetaminophen (Tylenol) 650 mg PO Q4H PRN PRN Reason: Pain or Fever Stop: 04/09/19 01:29 Allopurinol (Zyloprim) 100 mg PO QAM [facility] Stop: 04/09/19 08:59 Last Admin: 03/10/19 09:50 Dose: Not Given Documented by: Amlodipine Besylate (Norvasc) 5 mg PO QAM [facility] Stop: 04/09/19 08:59 Last Admin: 03/10/19 09:50 Dose: Not Given Documented by: Dextrose (Dextrose 50%) 25 - 50 ml IV UD PRN; Protocol PRN Reason: Hypoglycemia Protocol Stop: 04/09/19 01:29 Famotidine (Pepcid) 10 mg PO DAILY [facility] Stop: 04/09/19 08:59 Last Admin: 03/10/19 09:50 Dose: Not Given Documented by: Fluoxetine HCl (Prozac) 20 mg PO DAILY [facility] Stop: 04/09/19 08:59 Last Admin: 03/10/19 09:50 Dose: Not Given Documented by: Gabapentin (Neurontin) 400 mg PO BID [facility] Stop: 04/09/19 08:59 Last Admin: 03/10/19 20:05 Dose: 400 mg Documented by: Glucagon (Glucagen) 1 mg SQ UD PRN; Protocol PRN Reason: Hypoglycemia Protocol Stop: 04/09/19 01:29 Glucose (Dex4 Glucose) 4 - 8 tabs PO UD PRN; Protocol PRN Reason: Hypoglycemia Protocol Stop: 04/09/19 01:29 Glucose (Glucose 40%) 15 - 30 gm PO UD PRN; Protocol PRN Reason: Hypoglycemia Protocol Stop: 04/09/19 01:29 Heparin Sodium (Porcine) (Heparin Sodium (Porcine)) 5,000 units SQ Q8 [facility] Stop: 04/09/19 05:59 Last Admin: 03/11/19 06:16 Dose: 5,000 units Documented by: Hydromorphone HCl (Dilaudid) 0.5 mg IV Q3H PRN PRN Reason: Pain Stop: 03/24/19 01:29 Last Admin: 03/11/19 06:14 Dose: 0.5 mg Documented by: Promethazine HCl 12.5 mg/ (Sodium Chloride) 50.5 mls @ 202 mls/hr IV Q6H PRN PRN Reason: Nausea And Vomiting Stop: 04/09/19 01:29 Last Infusion: 03/11/19 03:00 Dose: Infused Documented by: Insulin Aspart (Novolog Flexpen) 0 units SC ACHS [facility] Stop: 04/09/19 01:59 Last Admin: 03/10/19 21:46 Dose: 3 units Documented by: Insulin Glargine (Lantus Solostar Pen) 25 units SQ DAILY [facility] Stop: 04/10/19 08:59 Lidocaine (Lidoderm 5%) 1 patch TD DAILY [facility] Stop: 04/09/19 08:59 Last Admin: 03/10/19 08:51 Dose: Not Given Documented by: Loratadine (Claritin) 10 mg PO DAILY [facility] Stop: 04/09/19 08:59 Last Admin: 03/10/19 09:49 Dose: Not Given Documented by: Miscellaneous (Carbohydrates For Hypoglycemia) 15 - 30 gm PO UD PRN PRN Reason: Hypoglycemia Protocol Stop: 04/09/19 01:29 Miscellaneous (Remove Lidoderm Patch) 1 ea N/A DAILY@2100 [facility] Stop: 04/09/19 01:29 Last Admin: 03/10/19 21:45 Dose: 1 ea Documented by: Nitroglycerin (Nitrostat) 0.4 mg SL UD PRN PRN Reason: Chest Pain Stop: 04/09/19 01:29 Ondansetron HCl (Zofran) 4 mg IV Q4H PRN PRN Reason: Nausea Stop: 04/09/19 07:37 Last Admin: 03/11/19 01:54 Dose: 4 mg Documented by: Sevelamer HCl (Renagel) 1,600 mg PO TIDM [facility] Stop: 04/09/19 07:59 Last Admin: 03/10/19 17:49 Dose: Not Given Documented by: Simvastatin (Zocor) 20 mg PO HS [facility] Stop: 04/09/19 20:59 Last Admin: 03/10/19 20:06 Dose: 20 mg Documented by: Tramadol HCl (Ultram) 25 - 50 mg PO Q4H PRN PRN Reason: Pain Stop: 04/09/19 01:29 (1) Abdominal pain Abdominal location: unspecified location Qualified Code(s): R10.9 - Unspecified abdominal pain
[2019-03-11] MEDS: INSULIN GLARGINE SOLOSTAR 100 UNITS/ML 3 ML PEN SQ SCH (09:18)
[2019-03-11] MEDS: INSULIN ASPART 100 UNITS/ML 3 ML PEN SC SCH ×4 (09:18→21:19)
[2019-03-11] MEDS: LIDOCAINE 5% 1 PATCH TD SCH (11:11)
[2019-03-11] MEDS: AMLODIPINE BESYLATE 5 MG TAB PO SCH (11:43)
[2019-03-11] MEDS: SEVELAMER HCL 800 MG TABLET PO SCH ×2 (11:43→12:59)
[2019-03-11] MEDS: FLUOXETINE HCL 20 MG CAP PO SCH (11:43)
[2019-03-11] MEDS: GABAPENTIN 400 MG CAP PO SCH (11:43)
[2019-03-11] MEDS: LORATADINE 10 MG TAB PO SCH (11:43)
[2019-03-11] MEDS: FAMOTIDINE 10 MG TABLET PO SCH (11:43)
[2019-03-11] MEDS: allopurinoL 100 MG TAB PO SCH (11:44)
[2019-03-11 13:06] LABS: Albumin Level 2.1 gm/dl (3.4-5.0); Bilirubin Direct 0.1 mg/dl (0-0.2); Bilirubin,Total 0.3 mg/dl (0.2-1); Total Protein 6.8 gm/dl (6.4-8.2)
--- NOTE | 2019-03-11 13:57 | Palliative Care Consultation ---
Date of Consultation March 11, 2019 Assessment & Plan (1) Goals of care, counseling/discussion: This is a 73 year old male who presented to the [facility] from home with his with worsening abdominal pain and intractable nausea. The patient has a neuroendocrine tumor of the pancreas with metastasis to the liver. Additional PMH includes CHF EF 55-60%, KINAA 2017, CRI with a baseline creatinine of 2, chronic anemia with baseline Hgb 8-9. He had a recent admission in December 2018 with MRSA and osteomyelitis of the toe on the right foot. He additionally was admitted at [facility] in January 2019 with hyperglycemia and blood sugars in the 500's. The patient just completed a two week stay at [facility] rehab facility and was home for three days when he started to experience pain, nausea, and vomiting. The patient was seen by [facility] oncologist and has undergone chemoembolization. Palliative Care was consulted for symptom management and to discuss goals of care. -I met with the patient, who slept for the entire visit, and his , Lyubov, and her sister Maryjo outside of the room. -Patient stated that she has seen him "go through the circus long enough" she said she is ready for him to go home with her and live the rest of his life with dignity and comfort. -Patient currently having increasing abdominal pain and nausea. -We talked about code status and confirmed that he will be a DNR/DNI moving forward which I reflected in the computer. -Patient currently is receiving Dilaudid 0.5 mg IV Q3 PRN for pain and Zofran 4mg Q4 PRN for nausea. Increased frequency of Dilaudid to Q2 PRN -Ultimately, discussed Hospice and its capabilities. Patient was recently discharged home with [facility] and has a hospital bed already at his home. -Patient states that a SNF is not an option for them. Her sister, Maryjo lives minutes away and can help her as well. the patients is independent. -She explained that they rode cross country on motorcycles during their 47 year marriage and per his living will would not want any aggressive measures taken. -I completed a POLST form with the patients indicating DNR.DNI, ENTRY PROCESSOR, no antibiotics, no artificial hydration/nutrition. She has the original and will take it home. Update: -1530: I went back to the patients room with Dr. Xiao who spoke with the patients and sister in the hallway. I then went into the patients room and spoke with him. He was having nausea, an episode of vomiting and would not open his eyes. He was AAOx4 and confirmed that he would like to go home and be more comfortable. He agreed to stop aggressive treatment and stated "I appreciate that" when I mentioned about him - I think that this patient is appropriate for GIP evaluation. This patient is requiring frequent evaluation by nursing and needs medication adjustment as well. He is requiring aggressive IV pain medication administration without relief. He has uncontrolled nausea and vomiting, and increasing abdominal pain that is not managed with his current pain regimen. With the patients ultimate goal of returning home, this would allow the hospice staff to develop rapport, manage his symptoms for a stable and seamless discharge to home with continued hospice services. Once this patients symptoms are stablized, he ultimately could transfer home with continued hospice services. -Patient is able to sign consents if GIP appropriate. -The hospitalist is aware of the above. Case management spoke with the family regarding hospice evaluation and [facility] will evaluate for GIP this evening at 1730. -PPS: 30% (2) Metastasis from pancreatic cancer: (3) Nausea & vomiting: Vomiting Intractability: non-intractable Vomiting type: unspecified Qualified Code(s): R11.2 - Nausea with vomiting, unspecified (4) CKD (chronic kidney disease), stage IV: (5) Diastolic heart failure: Supervising Physician Co-Signing Physician Notes Late entry for exam and visit performed on 03/11/19 Chart reviewed , pt seen and examined - pt's and sister in law at bedside. PE: comfortable at rest Resp: unlabored CV: RR, no edema Abd: not distended Neuro: A&O Agree with above note, assessment and plan as per [facility] to evaluate pt for GIP status tonight, will cont to follow and assist with sx management as well as facilitate goal to have pt at home with hospice. History of Present Illness Reason for Consultation: Goals of care Requesting Physician: Dr. Louis Attending Physician: Gustabo Louis MD History of Present Illness This is a 73 year old male who presented to the [facility] from home with his with worsening abdominal pain and intractable nausea. The patient has a neuroendocrine tumor of the pancreas with metastasis to the liver. Additional PMH includes CHF EF 55-60%, KIANA 2017, CRI with a baseline creatinine of 2, chronic anemia with baseline Hgb 8-9. He had a recent admission in December 2018 with MRSA and osteomyelitis of the toe on the right foot. He additionally was admitted at [facility] in January 2019 with hyperglycemia and blood sugars in the 500's. The patient just completed a two week stay at [facility] facility and was home for three days when he started to experience pain, nausea, and vomiting. The patient was seen by [facility] oncologist and has undergone chemoembolization. Palliative Care was consulted for symptom management and to discuss goals of care. Please see A/P for further details. Thank you kindly for involving the palliative care team with this patient. Allergies Allergy/AdvReac Type Severity Reaction Status Date / Time Sulfa (Sulfonamide Allergy Mild RASH Verified 03/09/19 18:33 Antibiotics) NSAIDS (Non-Steroidal Allergy Unknown "NO Verified 03/09/19 18:33 Anti-Inflamma NSAIDS"due to kidney disease Home Medications Home Medications Medication Instructions Recorded Confirmed Type calcitriol 0.25 mcg PO QAM 07/22/18 03/09/19 History sevelamer carbonate 1,600 mg PO TIDM 07/22/18 03/09/19 History simvastatin 20 mg PO HS 07/22/18 03/09/19 History alfuzosin 10 mg PO PM 11/13/18 03/09/19 History amlodipine 2.5 mg PO QAM 11/13/18 03/09/19 History albuterol sulfate 2 puff INHALATION Q6H PRN 11/14/18 03/09/19 History acetaminophen [Tylenol Extra 500 mg PO Q4 PRN 01/24/19 03/09/19 History Strength] allopurinol 100 mg PO QAM 01/24/19 03/09/19 History docusate sodium 100 mg PO BID PRN 01/24/19 03/09/19 History gabapentin 400 mg PO BID 01/24/19 03/09/19 History insulin lispro [Humalog KwikPen 0 unit SUBCUT TIDM 01/24/19 03/09/19 History Insulin] torsemide 40 mg PO QAM 01/24/19 03/09/19 History famotidine 10 mg PO DAILY 03/09/19 03/09/19 History fluoxetine 20 mg PO DAILY 03/09/19 03/09/19 History insulin glargine [Lantus Solostar 37 unit SUBCUT DAILY 03/09/19 03/09/19 History U-100 Insulin] lidocaine [Lidoderm] 1 patch TOPICAL DAILY 03/09/19 03/09/19 History loratadine 10 mg PO DAILY 03/09/19 03/09/19 History meclizine 25 mg PO TID PRN 03/09/19 03/09/19 History sodium polystyrene sulfonate 60 ml PO [id number] 03/09/19 03/09/19 History Patient History Medical History Anemia (Chronic) Asthma (Chronic) Chronic neck pain (Chronic) CKD (chronic kidney disease), stage IV (Chronic) Depression (Chronic) Diastolic heart failure (Chronic) Goals of care, counseling/discussion HLD (hyperlipidemia) (Chronic) Hyperparathyroidism (Chronic) Hypertension (Chronic) IDDM (insulin dependent diabetes mellitus) (Chronic) Kidney stones Liver cancer (Chronic) 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 Pancreas cancer (Chronic) Surgical History H/O cervical spine surgery (Chronic) S/P foot surgery (Chronic) bone spur removed S/P knee surgery (Chronic) S/P lumbar spine operation (Chronic) Family History Other Breast cancer Diabetes No pertinent family history Social History Preferred Language: Faroese Communication Ability: Unable Visual Impairment: No Limitations Hearing Ability: Normal Cat Tender Required: No Beliefs That Will Affect Care: None marital status: Current Living Situation: Spouse Other Information That Helps Us Care for You: No Feels Safe at Home: Yes Safety Concerns: Feels Safe At This Time Smoking Status: Former smoker Tobacco Type: cigarettes, pipe and cigars ; Hx Alcohol Use: No Hx Substance Use: No Review of Systems Review of Systems: General: (+) abdominal pain HEENT: (+) dizziness, RILEY Resp: (-) SOB CV: (-) chest pain, palpitations GI: (+) N/V/D Physical Exam Constitutional: + ill appearing, + frail appearing and cooperative Respiratory: normal respiratory effort, lungs clear to auscultation Cardiovascular: RRR, no murmur, no edema Gastrointestinal (Abdomen): normal bowel sounds, soft, nontender, no hepatosplenomegaly Skin: no rashes, warm and dry Psychiatric: Orientation: alert and oriented x 3 Insight: good insight Judgement: good judgement Genitourinary: voids in urinal Results & Data Vital Signs (Past 12 Hours) Vital Signs Temp Pulse Pulse Resp BP Pulse Ox 03/11/19 07:11 36.8 C 111 H 16 154/72 H 90 03/11/19 03:00 36.5 C 114 H 19 162/78 H 91 03/11/19 02:31 110 H PG Care Time/CCT Total # of Minutes Spent Total Time Spent with Patient: Total time spent is greater than 50% in coordi nation of care (as documented) at patient's floor/unit and/or counseling patient: 100 Time Spent Midlevel total time spent 100 minutes with > 50% of that time spent assessing the patient, discussing goals of care, completing a POLST form and managing symptoms, along with updating the IDT.
[2019-03-12] MEDS: HYDROmorphone INJ 0.5 MG/0.5 ML SYR IV PRN (06:18)
[2019-03-12] MEDS: ONDANSETRON INJ 2 MG/ML 2 ML VIAL IV PRN (06:18)
[2019-03-12] MEDS: INSULIN GLARGINE SOLOSTAR 100 UNITS/ML 3 ML PEN SQ SCH (08:11)
[2019-03-12] MEDS: INSULIN ASPART 100 UNITS/ML 3 ML PEN SC SCH ×2 (08:12→14:32)
[2019-03-12] MEDS: LIDOCAINE 5% 1 PATCH TD SCH (08:13)
[2019-03-12] MEDS ORDERED: MoRPHine SULFATE 10 MG/0.5 ML UDP PO PRN (11:33)
--- NOTE | 2019-03-12 11:36 | Palliative Care Progress Note ---
Date of Service March 12, 2019 Assessment & Plan (1) Comfort measures only status: -Patient is now being converted to [facility] hospice through [facility]. -He is still having nausea and abdominal pain. -Patient and his Lyubov both state that the goal is to get patient comfortable and to get him home on hospice. -Will convert to oral medications. -Discontinue IV Dilaudid. Start Roxanol 10mg PO Q2h PRN pain or SOB. Patient and family aware of secondary side effects of pain medication such as sedation and respiratory depression. Patient states, "I just want it to end." -Schedule Zofran 4mg SL Q4h while awake. -Stop checking BSGs, discontinue insulin-- per patient's request. -Will see how patient does symptomatically today-- will get him home possibly tomorrow if he is well-managed. (2) Metastasis from pancreatic cancer: (3) Nausea & vomiting: (4) CKD (chronic kidney disease), stage IV: (5) Diastolic heart failure: Subjective Patient is lying in bed with his and sister in law at bedside. Patient has abdominal pain. He is nauseated and vomiting this morning. Review of Systems Review of Systems: Patient c/o generalized abdominal pain and nausea. He denies SOB at this time. Physical Exam Constitutional: + ill appearing (uncomfortable) ENMT: Mouth: + dry oral mucous membranes Respiratory: normal respiratory effort; no labored breathing Cardiovascular: Rate/Rhythm: regular rhythm and + tachycardic Gastrointestinal (Abdomen): Inspection/Auscultation: normal bowel sounds Percussion/Palpation: + abdomen tender and abdomen soft Neurologic: moves all extremities and awake; not confused Psychiatric: Orientation: oriented x 3 Results & Data Vital Signs (Past 12 Hours) Vital Signs Temp Pulse Pulse Resp BP Pulse Ox 03/12/19 07:45 36.7 C 112 H 16 124/67 95 03/12/19 04:00 37.0 C 110 H 18 153/71 H 92 03/11/19 23:51 37.3 C 113 H 20 163/70 H 92 03/11/19 23:45 110 H Time Spent Midlevel 35 minutes with >50% of the time spent at bedside with patient and family discussing symptom management and [employer]. (1) Nausea & vomiting Vomiting Intractability: non-intractable Vomiting type: unspecified Qualified Code(s): R11.2 - Nausea with vomiting, unspecified
[2019-03-12] MEDS: ONDANSETRON 4 MG OD TAB PO SCH ×2 (12:53→16:25)
[2019-03-12] MEDS ORDERED: HYDROmorphone INJ 0.5 MG/0.5 ML SYR IV STA (13:40)
[2019-03-12] MEDS ORDERED: LORazepam 0.5 MG/1 ML VIAL IV PRN (14:03)
[2019-03-12] MEDS ORDERED: MoRPHine SULFATE 2 MG/ML CARP IV PRN (14:03)
[2019-03-12] MEDS: MoRPHine SULFATE 10 MG/0.5 ML UDP PO PRN ×2 (14:28→19:24)
[2019-03-12] MEDS ORDERED: ONDANSETRON INJ 2 MG/ML 2 ML VIAL IV PRN (17:28)
[2019-03-12] MEDS ORDERED: ACETAMINOPHEN 1,000 MG/100 ML VIAL IV PRN (17:28)
[2019-03-12] MEDS ORDERED: SCOPOLAMINE 1.5 MG TDSY TD ONE (17:29)
--- NOTE | 2019-03-12 17:49 | XRay Report ---
XR chest 1V portable HISTORY: Weakness. COMPARISON: Chest 03/09/2019. FINDINGS: Cervical spinal fusion hardware is again noted. No pneumothorax. No pleural effusions. The heart remains normal in size. Left basilar linear densities persist and favor subsegmental atelectasi s. Questionable right upper lobe densities likely due to overlapping first rib. Otherwise, no new foc al lung consolidations to suggest pneumonia. No evidence for pulmonary edema. IMPRESSION: No significant change compared to the prior study. No acute process. Electronically signed by: Paul Perez M.D. 03/12/2019 5:47 PM
--- NOTE | 2019-03-12 19:01 | Hospitalist Progress Note ---
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 Huynh,and Dr. Mcfarland at [facility], last visit December 2018.) Outpatient follow-up with patient's [facility] oncologist regarding progression of metastatic pancreatic neuroendocrine tumor -per pt and his family, pt does not wish to undergo any more treatments (2) Abdominal pain: Nausea and Vomiting -may be secondary to tumor burden versus gastroenteritis -CT abdomen pelvis obtained on admission (03/09/2019) - slight increase in size in the multiple hepatic lesions, no significant change in gastrohepatic mass/lymph nodes, no bowel wall thickening or obstruction, appendix normal, colonic diverticulosis, cholelithiasis, the gallbladder remains mildly distended, no gallbladder wall thickening. Trace pericardial effusion, unchanged. -anti-emetics and pain control -Start Morphine Sulfate (Roxanol 10mg) PO Q2h PRN pain or SOB. Patient and family aware of secondary side effects of pain medication such as sedation and respiratory depression. Patient states, "I just want it to end." -may benefit from bowel regimen while on narcotic pain medications Clostridium difficile carrier -gene positive but toxin negative -contact precautions Chronic diastolic heart failure as per records (EF 55 to 60%, TTE 2017) -holding home diuretics because of concern for dehydration Hypertension -holding amlodipine as patient does not appear to be nausea and goal is palliative Chronic Kidney Disease -no further lab monitoring Chronic anemia secondary to CKD Hyperlipidemia on statin Rx (currently has nausea, not able to take PO) - -discontinue statin or any unnecessary medications - plan to keep pt comfortable w/ palliative/hospice approach Diabetes Mellitus with Receptionist Current Use of Insulin -poor appetite likely to preclude insulin from being used Hyperparathyroidism as per records Functional disability/deconditioning secondary to recurrent admissions Past tobacco abuse Discharge Diagnosis: 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 At times with gurgling sounds of the throat. on room air. he reports pain everywhere but does not appear to be have acute pain attacks. has been having nausea. no fevers. He reports he is not interested in life prolonging treatments Review of Systems Review of Systems: All systems reviewed & are unremarkable except as noted in HPI & below Physical Exam Constitutional: + ill appearing (periodically with gurgling sides from mouth, nausea) ENMT: external ear and nose normal, oropharynx normal Neck: normal visual inspection Respiratory: normal respiratory effort, lungs clear to auscultation Cardiovascular: Rate/Rhythm: regular rhythm Gastrointestinal (Abdomen): normal bowel sounds, soft, nontender, no hepatosplenomegaly Musculoskeletal: Head/Neck/Chest: normocephalic and head atraumatic Neurologic: PERRL, EOMI, accommodation nl, no face palsy, no dysarthria Psychiatric: Orientation: alert and cooperative Results & Data Vital Signs (Past 12 Hours) Vital Signs Temp Pulse Resp BP Pulse Ox 03/12/19 07:45 36.7 C 112 H 16 124/67 95 (1) Abdominal pain Abdominal location: unspecified location Qualified Code(s): R10.9 - Unspecified abdominal pain
--- NOTE | 2019-03-12 19:22 | Discharge Summary ---
Date of Service March 12, 2019 Admission HPI Per Admitting Provider History obtained from patient and records. Medical history significant for chronic diastolic heart failure as per records (EF 55 to 60%, TTE 2017) HTN, hyperlipidemia, neuroendocrine tumor of the pancreas w/ liver mets sp chemoembolization, DM2, insulin requiring, CRI (baseline crea 2), chronic anemia (baseline hemoglobin of 8-9), hyperparathyroidism as per records, depression as per records, past tobacco abus e. 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 Patient discharged to rehab then back home. Patient subsequently admitted at [facility] from January 2019 for hyperglycemia, BSG 500s. Patient subsequently discharged to [facility] then discharged home 3 days ago after a 2-week rehab stay. Last night patient noted abdominal discomfort, nausea, emesis, dark watery diarrhea symptoms. No chest pain, no S OB, no fever, no chills. Patient brought to the ER for evaluation by . MEDICAL HISTORY: As above. Last outpatient [facility] (Dr. Mcfarland) visit December,. Sunitinib contemplated for progressive metastatic liver mets from pancreatic neuroendocrine tumor as per note. SURGERIES: He had foot surgery, back surgery, neck surgery, carpal tunnel surgery, shoulder cyst surgery, FAMILY HISTORY: Breast cancer, diabetes PERSONAL AND SOCIAL HISTORY: Past tobacco abuse. No chronic intake of alcoholic beverages. 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 Admission Exam Per Admitting Provider GENERAL: Slightly uncomfortable, chronically ill, sad, wane, no respiratory distress SKIN: Pallor, warm HEENT: Partial alopecia, pink palpebral conjunctivae, no ptosis, dry buccal mucosa NECK : Supple, no tenderness CHEST : Decreased breath sounds , no tenderness HEART : Tachycardic, no obvious murmurs ABDOMEN: Some distention, nontender EXTREMITIES : Minimal LE swelling, no LE tenderness, toe amputation stump right foot NEUROLOGIC : Coherent, no facial asymmetry, no other gross focality Principal Diagnosis Discharge from this hospital visit and then to be admitted under [facility] hospice admission through [facility] Discharge Exam Constitutional + ill appearing (periodically with gurgling sides from mouth, nausea) ENMT external ear and nose normal, oropharynx normal Neck normal visual inspection Respiratory normal respiratory effort, lungs clear to auscultation Cardiovascular Rate/Rhythm: regular rhythm Gastrointestinal (Abdomen) normal bowel sounds, soft, nontender, no hepatosplenomegaly Musculoskeletal Head/Neck/Chest: normocephalic and head atraumatic Neurologic PERRL, EOMI, accommodation nl, no face palsy, no dysarthria Psychiatric Orientation: alert and cooperative Discharge Data Allergies Allergy/AdvReac Type Severity Reaction Status Date / Time Sulfa (Sulfonamide Allergy Mild RASH Verified 03/09/19 18:33 Antibiotics) NSAIDS (Non-Steroidal Allergy Unknown "NO Verified 03/09/19 18:33 Anti-Inflamma NSAIDS"due to kidney disease Consultations 03/09/19 22:12 ED Decision to Admit Stat 03/10/19 01:30 Consult Case Management - Discharge Planning Routine 03/11/19 11:45 Consult Palliative Care Routine Ordered Studies 03/09/19 17:07 CT abd pelvis wo con Stat Hospital Course (1) Neuroendocrine carcinoma of pancreas: -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 Huynh,and Dr. Mcfarland at [facility], last visit December 2018.) Outpatient follow-up with patient's [facility] oncologist regarding progression of metastatic pancreatic neuroendocrine tumor -per pt and his family, pt does not wish to undergo any more treatments (2) Abdominal pain: Nausea and Vomiting -may be secondary to tumor burden versus gastroenteritis -CT abdomen pelvis obtained on admission (03/09/2019) - slight increase in size in the multiple hepatic lesions, no significant change in gastrohepatic mass/lymph nodes, no bowel wall thickening or obstruction, appendix normal, colonic diverticulosis, cholelithiasis, the gallbladder remains mildly distended, no gallbladder wall thickening. Trace pericardial effusion, unchanged. -anti-emetics and pain control -Start Morphine Sulfate (Roxanol 10mg) PO Q2h PRN pain or SOB. Patient and family aware of secondary side effects of pain medication such as sedation and r espiratory depression. Patient states, "I just want it to end." -may benefit from bowel regimen while on narcotic pain medications Clostridium difficile carrier -gene positive but toxin negative -contact precautions Chronic diastolic heart failure as per records (EF 55 to 60%, TTE 2017) -holding home diuretics because of concern for dehydration Hypertension -holding amlodipine as patient does not appear to be nausea and goal is palliative Chronic Kidney Disease -no further lab monitoring Chronic anemia secondary to CKD Hyperlipidemia on statin Rx (currently has nausea, not able to take PO) - -discontinue statin or any unnecessary medications - plan to keep pt comfortable w/ palliative/hospice approach Diabetes Mellitus with Fdc Current Use of Insulin -poor appetite likely to preclude insulin from being used Hyperparathyroidism as per records Functional disability/deconditioning secondary to recurrent admissions Past tobacco abuse Discharge Diagnosis: 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, Abdominal Pain, Nausea and Vomiting, Clostridium difficile carrier Code status: DNR/DNI Discharge from this hospital visit and then to be admitted under [facility] hospice admission through [facility] Total Time Total Time Spent Total Time Spent (In Minutes): 40 minutes Total Time Includes: Examination of the Patient, Discharge Planning, Medication Reconciliation and Communication With Other Providers Discharge Plan Discharge Items Patient Disposition: Hospice - Medical Facility Reason For Visit: HTN URGENCY Discharge Diagnosis: 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, Abdominal Pain, Nausea and Vomiting, Clostridium difficile carrier Condition on Discharge: Fair Activity: Per Instructions section Non-emergency contact: Primary Care Provider Call non-emergency contact if: you have any medication questions Follow-up/Referrals: Deedee Perkins PA-C [Primary Care Provider] - Diet: Carb Consistent or DM2 Addtl Attending Provider Instructions: Discharge from this hospital visit and then to be admitted under [facility] hospice admission through [facility] Pending Studies at Discharge: No Stand-Alone Forms: My [facility] Skilled Items Patient informed of condition?: Yes DNR: Yes Discharge Level of Care: Other Communicable Disease: Yes Discharge Prognosis: Stable Lines: Peripheral IV Urinary Catheter: Yes Medications and DC Order Prescriptions: Discontinued simvastatin 20 mg tablet 20 mg PO HS RF: 0 sevelamer carbonate 800 mg tablet 1,600 mg PO TIDM RF: 0 calcitriol 0.25 mcg capsule 0.25 mcg PO QAM RF: 0 amlodipine 5 mg tablet 2.5 mg PO QAM RF: 0 alfuzosin 10 mg tablet extended release 24 hr 10 mg PO PM RF: 0 albuterol sulfate 90 mcg/actuation Hfa Aerosol Inhaler 2 puff INHALATION Q6H PRN (Reason: Shortness Of Breath Or Wheezing) RF: 0 gabapentin 400 mg Capsule 400 mg PO BID RF: 0 allopurinol 100 mg tablet 100 mg PO QAM RF: 0 acetaminophen [Tylenol Extra Strength] 500 mg Tablet 500 mg PO Q4 PRN (Reason: Pain) RF: 0 insulin lispro [Humalog KwikPen Insulin] 100 unit/mL insulin pen 0 unit subcut TIDM RF: 0 docusate sodium 100 mg capsule 100 mg PO BID PRN (Reason: Constipation) RF: 0 torsemide 20 mg tablet 40 mg PO QAM RF: 0 famotidine 10 mg Tablet 10 mg PO DAILY RF: 0 sodium polystyrene sulfonate 15 gram/60 mL Suspension 60 ml PO 3XWK RF: 0 meclizine 25 mg Tablet 25 mg PO TID PRN (Reason: dizzy) RF: 0 fluoxetine 20 mg Tablet 20 mg PO DAILY RF: 0 lidocaine [Lidoderm] 5 % Adhesive Patch,Medicated 1 patch TOPICAL DAILY RF: 0 loratadine 10 mg Tablet 10 mg PO DAILY RF: 0 Lantus Solostar U-100 Insulin 100 unit/mL (3 mL) Insulin Pen 37 unit SUBCUT DAILY RF: 0 Discharge Orders: Discharge Order (Routine); Ordered 03/12/19 Ordered By: Souleymane Huizar Admission Data Admit Date/Time: 03/10/19 09:49 Attending Provider: Souleymane Huizar Admit Provider: Jorje Forrest Primary Care Provider: Deedee Perkins Other Providers: Jorje Forrest ; Jing Xiao ; [facility]
[2019-03-13] MEDS ORDERED: CHECK SCOPOLAMINE PATCH PLACEMENT SCH
== END 2019-03-12 20:53 | disposition hospice, inpatient (51) | DRG 844 ==
LOC: ED 16:57 → 2W 16:57 → SUATTDRO 03-10 09:49

== ENCOUNTER 2019-03-12 20:53 | Inpatient (IN) ==
[2019-03-12] MEDS ORDERED: LORazepam 0.5 MG/1 ML VIAL IV PRN (22:21)
[2019-03-12] MEDS ORDERED: ACETAMINOPHEN 325 MG TAB PO PRN (22:21)
[2019-03-12] MEDS ORDERED: ONDANSETRON INJ 2 MG/ML 2 ML VIAL IV PRN (22:21)
[2019-03-12] MEDS ORDERED: MoRPHine SULFATE 2 MG/ML CARP IV PRN (22:21)
[2019-03-12 23:31] VITALS: BP 120/64; PULSE 110; TEMP 98.1; O2SAT 94
--- NOTE | 2019-03-13 00:38 | History and Physical Report ---
DATE OF ADMISSION: 03/12/2019 CHIEF COMPLAINT: Metastatic cancer. This is H and P for hospice care. HISTORY OF PRESENT ILLNESS: This is a 73-year-old male with past medical history significant for chronic diastolic heart failure, as per records, EF of 55-60% on echo in 2017, hypertension, hyperlipidemia, neuroendocrine tumor of the pancreas with liver mets, status post chemoembolization, diabetes, chronic kidney disease , chronic anemia, baseline hemoglobin 8.9, hyperparathyroidism,depression, as per records past tobacco abuse, recent history of second toe right foot osteomyelitis, status post antibiotics, but recently admitted for abdominal pain and shows slight increase in multiple hepatic lesions and the patient did not want to undergo any more treatments and the patient is currently getting admitted to hospice care. The patient is resting comfortably. Denies any chest pain, no shortness of breath. Denies any nausea. Has some cough. He says bowels and bladder moving okay. He says his appetite is okay. No nausea. He goes back to sleep and could not get much history from the patient. ALLERGIES: SULFA ANTIBIOTICS, NSAIDS. PAST MEDICAL HISTORY: As mentioned above. PAST SURGICAL HISTORY: Had 4 surgeries, back surgery, neck surgery, carpal tunnel surgery, shoulder surgery. MEDICATIONS AT HOME: Calcitriol, sevelamer, simvastatin, alfuzosin, amlodipine, albuterol, Tylenol extra strength, allopurinol, Colace, gabapentin, Humalog insulin, furosemide, famotidine, fluoxetine, Lantus, lidocaine, loratadine, meclizine, sodium polystyrene sulfonate. FAMILY HISTORY: Significant for breast cancer, diabetes. SOCIAL HISTORY: Past tobacco abuse. No chronic intake of alcoholism. 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 REVIEW OF SYSTEMS: As per HPI. Could not get complete review of symptoms as the patient is somewhat drowsy. PHYSICAL EXAMINATION: GENERAL: The patient is drowsy, but arousable and oriented. HEENT: Head is atraumatic. NECK: No neck masses, no JVD. CARDIOVASCULAR: S1, S2 heard, regular rate and rhythm, no murmur, no gallop. RESPIRATORY SYSTEM: Normal AP diameter. No accessory muscle use. No wheezing, no crackles. ABDOMEN: Soft, bowel sounds present. Diffuse abdominal discomfort. No guarding. No rigidity. CENTRAL NERVOUS SYSTEM: Drowsy, but when the patient awoke, can tell his name, knows his date of , knows that he is in the hospital, can tell month and year. Moves extremities. Obeys simple commands. EXTREMITIES: No edema, no erythema. LABORATORY DATA: Currently not available. ASSESSMENT AND PLAN: 1. Metastatic neuroendocrine tumor of the pancreas. Recent CAT scan shows increasing hepatic lesion, the patient does not want any further treatments and opted for hospice care. We will place him on IV morphine p.r.n. and IV Ativan p.r.n. Roxanol prn. Continue the hospice care, to keep the patient comfortable. 2. Deep venous thrombosis prophylaxis, SCDs. CODE STATUS: DNR. MTDD
[2019-03-13] MEDS: MoRPHine SULFATE 5 MG/0.25 ML UDP PO PRN ×3 (08:20→15:21)
[2019-03-13] MEDS ORDERED: ONDANSETRON 4 MG OD TAB PO PRN ×2 (10:51→11:00)
[2019-03-13] MEDS ORDERED: SCOPOLAMINE 1.5 MG TDSY TD ONE (11:45)
--- NOTE | 2019-03-13 13:56 | Hospitalist Progress Note ---
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 Huynh,and Dr. Mcfarland at [facility], last visit December 2018.) Outpatient follow-up with patient's [facility] oncologist regarding progression of metastatic pancreatic neuroendocrine tumor -per pt and his family, pt does not wish to undergo any more treatments -admitted on 03/09/19; -Discharge from hospital visit account on 03/12/19 and then to be admitted on 03/12/19 chart under [facility] hospice admission through [facility] Abdominal pain: Nausea and Vomiting -may be secondary to tumor burden versus gastroenteritis -CT abdomen pelvis obtained on (03/09/2019) - slight increase in size in the multiple hepatic lesions, no significant change in gastrohepatic mass/lymph nodes, no bowel wall thickening or obstruction, appendix normal, colonic diverticulosis, cholelithiasis, the gallbladder remains mildly distended, no gallbladder wall thickening. Trace pericardial effusion, unchanged. -anti-emetics and pain control, Miralax bowel regimen while on narcotic pain control medications Clostridium difficile carrier -gene positive but toxin negative -contact precautions Chronic diastolic heart failure as per records (EF 55 to 60%, TTE 2017) -holding home diuretics because of concern for dehydration and because goals of care is palliative Hypertension -holding amlodipine as patient does not appear to be nausea and goal is palliative Chronic Kidney Disease -no further lab monitoring Chronic anemia secondary to CKD Diabetes Mellitus with Prison Current Use of Insulin -poor appetite precludes insulin from being used and because goal is palliative Hyperlipidemia -hold statin Hyperparathyroidism as per records Functional disability/deconditioning secondary to recurrent admissions Past tobacco abuse DNR/DNI Subjective Patient seen and examined after he has dose of morphine pain medication. Patient generally sleepy. he makes spontaneous movements. He does appear to be in distress. nursing staff reported that they helped him with hygiene earlier. Review of Systems Review of Systems: All systems reviewed & are unremarkable except as noted in HPI & below Physical Exam Constitutional: comfortable Neck: normal visual inspection Cardiovascular: Rate/Rhythm: regular rhythm Gastrointestinal (Abdomen): normal bowel sounds, soft, nontender, no hepatosplenomegaly Musculoskeletal: Head/Neck/Chest: normocephalic and head atraumatic Psychiatric: Patient seen and examined after he has dose of morphine pain medication. Patient generally sleepy. he makes spontaneous movements. He does appear to be in distress. nursing staff reported that they helped him with hygiene earlier
[2019-03-13] MEDS ORDERED: POLYETHYLENE (MIRALAX) 17 GM PACK PO PRN (14:12)
--- NOTE | 2019-03-13 14:23 | Palliative Care Progress Note ---
Date of Service March 13, 2019 Assessment & Plan (1) Comfort measures only status: Patient is a 73-year-old male with neuroendocrine carcinoma of the pancreas with mets to liver-nearing end-of-life, currently hospice GIP status Will continue to follow and assist with symptom management as well as provide support to patient's and [id number]. (2) Nausea & vomiting: Vomiting controlled with PRN Zofran, continue scopolamine patch (3) Neuroendocrine carcinoma of pancreas: (4) Metastasis from pancreatic cancer: (5) Abdominal pain: Subjective Patient awake, was able to answer questions by nodding yes or no. Met with patient's and [id number] Patient reports pain, nodded yes when asked if he wanted additional pain medicine. Patient has IV morphine 2 mg IV every 2 hours PRN available. Patient's now feels that she would not be able to care for him at home with his current care needs, he is currently hospice care GIP status. Review of Systems Review of Systems: Would only nod yes or no to simple questions Nodded yes to pain, would not give location Denied fever, chills or shortness of breath Physical Exam Physical Exam: PE: Patient appears comfortable, no acute distress HEENT: Hearing within normal limits, patient did not open eyes during exam CV: Tachycardic Respirations: Unlabored Abdomen: Not distended PG Care Time/CCT Total # of Minutes Spent Total Time Spent with Patient: Total time spent is greater than 50% in coordination of care (as documented) at patient's floor/unit and/or counseling patient: (1) Nausea & vomiting Vomiting Intractability: non-intractable Vomiting type: unspecified Qualified Code(s): R11.2 - Nausea with vomiting, unspecified (2) Abdominal pain Abdominal location: unspecified location Qualified Code(s): R10.9 - Unspecified abdominal pain
[2019-03-13] MEDS: CHECK SCOPOLAMINE PATCH PLACEMENT SCH ×2 (15:22→23:06)
[2019-03-14] MEDS: CHECK SCOPOLAMINE PATCH PLACEMENT SCH (07:25)
--- NOTE | 2019-03-14 09:27 | Palliative Care Progress Note ---
Date of Service March 14, 2019 Assessment & Plan (1) Comfort measures only status: -Patient's plan is now to go to [facility] today with [facility]. -He appears comfortable this morning. -He should leave with scripts for Roxanol and lorazepam. Hospitalist aware. -We will sign off. Please contact palliative care team with any further needs. (2) Nausea & vomiting: (3) Neuroendocrine carcinoma of pancreas: (4) Metastasis from pancreatic cancer: (5) Abdominal pain: Subjective No family at bedside. Patient was resting comfortably when I entered room. Unable to obtain full ROS due to cognitive status. Review of Systems Review of Systems: unable to obtain full ROS. Patient would nod head to questions. Physical Exam Physical Exam: Constitutional + ill appearing, but resting comfortably when I entered room Mouth: + dry oral mucous membranes Respiratory: normal respiratory effort; no labored breathing Cardiovascular: regular rhythm and + tachycardic Gastrointestinal:+ abdomen tender and abdomen soft Orientation: not alert, not oriented Time Spent Midlevel 25 minutes with >50% of the time spent at bedside with patient and IDT discussing plan of care. (1) Nausea & vomiting Vomiting Intractability: non-intractable Vomiting type: unspecified Qualified Code(s): R11.2 - Nausea with vomiting, unspecified (2) Abdominal pain Abdominal location: unspecified location Qualified Code(s): R10.9 - Unspecified abdominal pain
--- NOTE | 2019-03-14 09:29 | Hospitalist Progress Note ---
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 Huynh,and Dr. Mcfarland at [facility], last visit December 2018.) Outpatient follow-up with patient's [facility] oncologist regarding progression of metastatic pancreatic neuroendocrine tumor -per pt and his family, pt does not wish to undergo any more treatments -admitted on 03/09/19; Discharge from hospital visit account on 03/12/19 and then to be admitted on 03/12/19 chart under [facility] hospice admission through [facility] Abdominal pain: Nausea and Vomiting -may be secondary to tumor burden versus gastroenteritis -CT abdomen pelvis obtained on (03/09/2019) - slight increase in size in the multiple hepatic lesions, no significant change in gastrohepatic mass/lymph nodes, no bowel wall thickening or obstruction, appendix normal, colonic diverticulosis, cholelithiasis, the gallbladder remains mildly distended, no gallbladder wall thickening. Trace pericardial effusion, unchanged. -anti-emetics and pain control, Miralax bowel regimen while on narcotic pain control medications -vomiting appears to have stopped at this point, no acute abdominal pain currently Clostridium difficile carrier -gene positive but toxin negative -contact precautions Chronic diastolic heart failure as per records (EF 55 to 60%, TTE 2017) -holding home diuretics because of concern for dehydration and because goals of care is palliative Hypertension -holding amlodipine as patient does not appear to be nausea and goal is palliative Chronic Kidney Disease -no further lab monitoring Chronic anemia secondary to CKD Diabetes Mellitus with Senior Care Current Use of Insulin -poor appetite precludes insulin from being used and because goal is palliative Hyperlipidemia -hold statin Hyperparathyroidism as per records Functional disability/deconditioning secondary to recurrent admissions Past tobacco abuse DNR/DNI Subjective Patient seen and examined at bedside. He preferred not wear clothes as per nursing staff. Patient wants to defecate or urinate and need assistance with bed hugo. Patient denies vomiting yesterday. Does not appear to be in acute pain. appears to have generalized weakness. Patient has not been able to ambulate to bathroom Review of Systems Review of Systems: All systems reviewed & are unremarkable except as noted in HPI & below Physical Exam Constitutional: comfortable Eyes: EOM intact bilaterally ENMT: external ear and nose normal, oropharynx normal Neck: normal visual inspection Respiratory: normal respiratory effort, lungs clear to auscultation Cardiovascular: Rate/Rhythm: regular rhythm Gastrointestinal (Abdomen): normal bowel sounds, soft, nontender, no hepatosplenomegaly Musculoskeletal: Head/Neck/Chest: normocephalic and head atraumatic Neurologic: PERRL, EOMI, accommodation nl, no face palsy, no dysarthria Psychiatric: Orientation: alert
--- NOTE | 2019-03-14 11:17 | Discharge Summary ---
Date of Service March 14, 2019 Admission HPI Per Admitting Provider History obtained from patient and records. 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 Patient discharged to rehab then back home. Patient subsequently admitted at [facility] from January 2019 for hyperglycemia, BSG 500s. Patient subsequently discharged to [facility] then discharged home 3 days ago after a 2-week rehab stay. Last night patient noted abdominal discomfort, nausea, emesis, dark watery diarrhea symptoms. No chest pain, no S OB, no fever, no chills. Patient brought to the ER for evaluation by . MEDICAL HISTORY: As above. Last outpatient [facility] Oncology (Dr. Mcfarland) visit December,. Sunitinib contemplated for progressive metastatic liver mets from pancreatic neuroendocrine tumor as per note. SURGERIES: He had foot surgery, back surgery, neck surgery, carpal tunnel surgery, shoulder cyst surgery, FAMILY HISTORY: Breast cancer, diabetes PERSONAL AND SOCIAL HISTORY: Past tobacco abuse. No chronic intake of alcoholic beverages. 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, Clostridium difficile carrier Discharge Exam Constitutional comfortable Eyes EOM intact bilaterally ENMT external ear and nose normal, oropharynx normal Neck normal visual inspection Respiratory normal respiratory effort, lungs clear to auscultation Cardiovascular Rate/Rhythm: regular rhythm Gastrointestinal (Abdomen) normal bowel sounds, soft, nontender, no hepatosplenomegaly Musculoskeletal Head/Neck/Chest: normocephalic and head atraumatic Neurologic PERRL, EOMI, accommodation nl, no face palsy, no dysarthria Psychiatric Orientation: alert Discharge Data Allergies Allergy/AdvReac Type Severity Reaction Status Date / Time Sulfa (Sulfonamide Allergy Mild RASH Verified 03/09/19 18:33 Antibiotics) NSAIDS (Non-Steroidal Allergy Unknown "NO Verified 03/09/19 18:33 Anti-Inflamma NSAIDS"due to kidney disease Consultations 03/12/19 22:21 Consult Case Management - Discharge Planning Routine Hospital Course (1) Neuroendocrine carcinoma of pancreas: Neuroendocrine carcinoma of pancreas Generalized weakness Hospice Care/Comfort Measures only status -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 Huynh,and Dr. Mcfarland at [facility], last visit December 2018.) Outpatient follow-up with patient's [facility] oncologist regarding progression of metastatic pancreatic neuroendocrine tumor -per pt and his family, pt does not wish to undergo any more treatments -admitted on 03/09/19; Discharge from hospital visit account on 03/12/19 and then to be admitted on 03/12/19 chart under [facility] hospice admission through [facility] Abdominal pain: Nausea and Vomiting -may be secondary to tumor burden versus gastroenteritis -CT abdomen pelvis obtained on (03/09/2019) - slight increase in size in the multiple hepatic lesions, no significant change in gastrohepatic mass/lymph nodes, no bowel wall thickening or obstruction, appendix normal, colonic diverticulosis, cholelithiasis, the gallbladder remains mildly distended, no gallbladder wall thickening. Trace pericardial effusion, unchanged. -anti-emetics and pain control, Miralax bowel regimen while on narcotic pain control medications -vomiting appears to have stopped at this point, no acute abdominal pain currently Clostridium difficile carrier -gene positive but toxin negative -contact precautions Chronic diastolic heart failure as per records (EF 55 to 60%, TTE 2017) -holding home diuretics because of concern for dehydration and because goals of care is palliative Hypertension -holding amlodipine as patient does not appear to be nausea and goal is palliative Chronic Kidney Disease -no further lab monitoring Chronic anemia secondary to CKD Diabetes Mellitus with Senior Living Current Use of Insulin -poor appetite precludes insulin from being used and because goal is palliative Hyperlipidemia -hold statin Hyperparathyroidism as per records Functional disability/deconditioning secondary to recurrent admissions Past tobacco abuse DNR/DNI Total Time Total Time Spent Total Time Spent (In Minutes): 40 minutes Total Time Includes: Examination of the Patient, Discharge Planning, Medication Reconciliation and Communication With Other Providers Discharge Plan Discharge Items Patient Disposition: Hospice - Medical Facility Reason For Visit: HTN URGENCY Discharge Diagnosis: Hospice Care/Comfort Measures only status, Nausea & vomiting, generalized weakness, 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, Clostridium difficile carrier Activity: As commented below Activity Comment: as tolerated activities Non-emergency contact: Primary Care Provider Call non-emergency contact if: you have any medication questions Follow-up/Referrals: Deedee Perkins PA-C [Primary Care Provider] - Diet: Carb Consistent or DM2 Addtl Attending Provider Instructions: Patient is discharge to [facility] for continuing hospice care Discharge medications sent electronically to [facility] [address] [facility] [address] [place] [address] for acetaminophen 325 mg every 6 hours as needed for mild pain or fever morphine sulfate (Roxanol) 5mg (which is 0.25 ml when solution comes in 20mg per ml) every 4 hours as needed which is for moderate to severe pain (6 ml prescribed) odansetron 4 mg every 4 hours (can be given orally or sublingual) every 4 hours while awake if nausea or vomiting scopolamine patch every 3 days for excessive salivation Miralax daily prn for constipation Pending Studies at Discharge: No Stand-Alone Forms: [facility] Skilled Items Patient informed of condition?: Yes DNR: Yes Discharge Level of Care: Skilled Communicable Disease: No Discharge Prognosis: Stable Lines: None Urinary Catheter: No Medications and DC Order Prescriptions: New acetaminophen 325 mg tablet 325 mg PO Q6H PRN (Reason: fever or pain) 5 Days Qty: 20 RF: 0 ondansetron 4 mg Tablet,Disintegrating 4 mg PO Q4HWA PRN (Reason: nausea and vomiting) 10 Days Qty: 60 RF: 0 polyethylene glycol 3350 [Miralax] 17 gram Powder In Packet 17 g PO DAILY PRN (Reason: constipation) 30 Days Qty: 30 RF: 0 scopolamine base 1 mg over 3 days patch 3 day 1 patch TD Q3D PRN (Reason: excessive salivation) 30 Days Qty: 10 RF: 0 morphine concentrate 100 mg/5 mL (20 mg/mL) Solution 5 mg PO Q4H PRN (Reason: moderate to severe pain) 4 Days Qty: 6 RF: 0 Discharge Orders: Discharge Order (Routine); Ordered 03/14/19 Ordered By: Souleymane Huizar Admission Data Admit Date/Time: 03/12/19 20:53 Attending Provider: Souleymane Huizar Admit Provider: Jorje Forrest Primary Care Provider: Deedee Perkins Other Providers: [facility]
== END 2019-03-14 12:50 | disposition hospice, inpatient (51) | DRG 951 ==
LOC: 2W 20:53
DX: Z79.4 Long term (current) use of insulin; D63.1 Anemia in chronic kidney disease; Z87.891 Personal history of nicotine dependence; Z83.3 Family history of diabetes mellitus; Z80.3 Family history of malignant neoplasm of breast; Z88.6 Allergy status to analgesic agent; Z88.2 Allergy status to sulfonamides; E78.5 Hyperlipidemia, unspecified; C78.7 Secondary malignant neoplasm of liver and intrahepatic bile duct; E11.9 Type 2 diabetes mellitus without complications; Z66 Do not resuscitate; Z51.5 Encounter for palliative care; N18.9 Chronic kidney disease, unspecified; E21.3 Hyperparathyroidism, unspecified; C7A.8 Other malignant neuroendocrine tumors; F32.9 Major depressive disorder, single episode, unspecified; I13.10 Hypertensive heart and chronic kidney disease without heart failure, with stage 1 through stage 4 chronic kidney disease, or unspecified chronic kidney disease; I16.0 Hypertensive urgency; E86.0 Dehydration; Z22.39 Carrier of other specified bacterial diseases; I50.32 Chronic diastolic (congestive) heart failure